=== PATIENT | female | born 1955 | race Caucasian/White ===

== ENCOUNTER → 2020-04-03 10:43 | Outpatient (BNVA) | payer OTHER, SELFPAY | PROVIDERS: Family Provider Internal Medicine; PCP Nurse Practitioner Family; Referring Provider Nurse Practitioner Family; Visit Provider Specialist | DX: M79.642 Pain in left hand (principal); S62.615A Displaced fracture of proximal phalanx of left ring finger, initial encounter for closed fracture; S62.647A Nondisplaced fracture of proximal phalanx of left little finger, initial encounter for closed fracture; X58.XXXA Exposure to other specified factors, initial encounter | CPT/HCPCS: 73130 ==

== ENCOUNTER 2020-04-03 11:46 | Outpatient (CLI) | payer OTHER, SELFPAY | END 2020-04-03 11:47 | disposition home or self-care (01) | LOC: SPT 11:47 | PROVIDERS: Family Provider Internal Medicine; PCP Nurse Practitioner Family; Visit Provider Specialist | DX: Z46.89 Encounter for fitting and adjustment of other specified devices (principal); M25.511 Pain in right shoulder | CPT/HCPCS: 97760; L3984 ==

== ENCOUNTER 2020-04-06 06:00 | Outpatient (RCR) | payer OTHER, SELFPAY | END 2020-04-09 23:59 | disposition home or self-care (01) | LOC: WPT 06:00 | PROVIDERS: Family Provider Internal Medicine; PCP Nurse Practitioner Family; Referring Provider Nurse Practitioner Family; Visit Provider Nurse Practitioner Family | DX: M25.511 Pain in right shoulder (principal) | CPT/HCPCS: 97110; 97163 ==

== ENCOUNTER 2020-04-10 06:00 | Outpatient (RCR) | payer OTHER, SELFPAY | END 2020-05-10 23:59 | disposition home or self-care (01) | LOC: WPT 06:00 | PROVIDERS: Family Provider Internal Medicine; PCP Nurse Practitioner Family; Referring Provider Nurse Practitioner Family; Visit Provider Nurse Practitioner Family | DX: M25.511 Pain in right shoulder (principal) | CPT/HCPCS: 97110; 97112 ==

== ENCOUNTER → 2020-04-24 13:14 | Outpatient (BNVA) | payer OTHER, SELFPAY | PROVIDERS: Family Provider Internal Medicine; PCP Nurse Practitioner Family; Visit Provider Specialist | DX: M79.642 Pain in left hand (principal); Z98.890 Other specified postprocedural states; S62.617D Displaced fracture of proximal phalanx of left little finger, subsequent encounter for fracture with routine healing; S62.615D Displaced fracture of proximal phalanx of left ring finger, subsequent encounter for fracture with routine healing; W19.XXXD Unspecified fall, subsequent encounter | CPT/HCPCS: 73130 ==

== ENCOUNTER → 2020-12-25 10:54 | Outpatient (BNVA) | payer MEDICARE, SELFPAY | PROVIDERS: Family Provider Internal Medicine; PCP Nurse Practitioner Family; Referring Provider Nurse Practitioner Family; Visit Provider Specialist | DX: S49.91XA Unspecified injury of right shoulder and upper arm, initial encounter (principal); S23.29XA Dislocation of other parts of thorax, initial encounter; W00.0XXA Fall on same level due to ice and snow, initial encounter | CPT/HCPCS: 71130; 73030 ==

== ENCOUNTER 2021-01-18 16:02 | Inpatient (IN) | payer MEDICARE, SELFPAY ==
--- NOTE | 2021-01-18 | XRR_ITS ---
PROCEDURE INFORMATION: Exam: XR Chest Exam date and time: 01/18/2021 5:36 PM Age: 65 years old Clinical indication: Injury or trauma; Fall; Blunt trauma (contusions or hematomas) TECHNIQUE: Imaging protocol: XR of the chest. Views: 1 view. COMPARISON: [place] [id number] 12/25/2020 2:25 PM FINDINGS: Lungs: Left mid lung calcified granuloma. Pleural spaces: Unremarkable. No pleural effusion. No pneumothorax. Heart/Mediastinum: Unremarkable. No cardiomegaly. Bones/joints: Unremarkable. XR/XR chest 1V portable [id number] IMPRESSION: Negative for acute abnormality
[2021-01-18 16:17] VITALS: BP 99/58; PULSE 84; RESP 18; TEMP 37.1; BMI 22.1
--- NOTE | 2021-01-18 16:48 | W.ED.FALL ---
HPI - Fall General: Chief Complaint: Fall Stated Complaint: FELL/L HIP PAIN Time Seen by Provider: 01/18/21 16:48 Source: family Limitations: altered mental status History of Present Illness: HPI Narrative: Ms. ramirez is a 65-year-old lady with significant past medical history of alcohol use who presents to the emergency department due to fall and generalized symptoms. She has had a number of weeks of worsening symptoms with increased confusion and generalized weakness. On Friday, 2 days prior to presentation, she was extra dizzy and ended up falling. Since that time she has had perhaps worsening of her confusion. She has not been able to walk. She complains of moderate intensity left hip and back pain. These symptoms are worse with exertion and movement but do not go away with rest. No infectious symptoms reported. No other specific changes in health, exacerbating, or alleviating factors identified. Some history is supplemented by patient's friends/family at bedside Review of Systems General: Reports: 10 or more systems reviewed and unremarkable except in HPI and below PFSH ED PFSH: Medical History (Updated 01/24/21 @ 16:55 by Isac Fernando MD) Anxiety disorder GERD (gastroesophageal reflux disease) Hyperlipidemia Hypertension Hyperthyroidism Major depressive disorder Refeeding syndrome Sarcoidosis diagnosis per available outside records, with patient stating onset in , details unknown, never put on specific treatment per report Type 2 diabetes mellitus Vulvar carcinoma Surgical History (Updated 01/23/21 @ 11:58 by Gilberto Farfan MD) History of carpal tunnel release History of gastric bypass Family History (Updated 01/18/21 @ 23:29 by Ana Tabor MD) Other Cancer Social History (Updated 01/18/21 @ 23:29 by Ana Tabor MD) Smoking and tobacco status: former smoker Alcohol intake: former Substance/Drug Use: never Number of children: 0 Physical Exam Narrative: EXAM NARRATIVE: GENERAL/CONSTITUTIONAL -ill-appearing. Delayed responses Eyes - PERRL, no conjunctival injection ENMT - Atraumatic external nose and ears. Moist mucous membranes NECK - supple. trachea midline CARDIOVASCULAR - regular rate and rhythm. Peripheral pulses 2+ and equal RESPIRATORY -coarse, cough ABDOMEN/GI -tenderness to palpation without evidence of peritonitis MSK - tender to palpation of the left hip. Tender to palpation of the back. Generalized other tenderness. SKIN - Warm, Dry NEURO - alert but confused. No focal neurologic deficits appreciated. Course ED course: - Patient was seen and evaluated by me at bedside - Patient placed on cardiac monitors, IV access obtained - Initial evaluation notable for confused, ill appearance - Labs notable for leukocytosis, macrocytic anemia. Metabolic panel notable for marked decreased bicarb and increased anion gap, creatinine is elevated likely well above baseline. Lactate significantly elevated. ABG with likely metabolic acidosis - Given patient's mental status CT imaging is warranted. imaging notable for no acute findings on head or neck CT. CT chest abdomen pelvis without acute finding to explain patient's symptoms. Patient does have left hip intertrochanteric fracture. - Discussed case with orthopedics, they will follow along - Upon serial reexamination after treatment the patient was minimally improved - Based on patient history, evaluation, labs, and imaging as interpreted the most likely cause of the patient's condition is largely unclear. She has rather profound metabolic derangement resulting in altered mental status of unclear etiology. She does have a hip fracture from her fall. - The results of ED evaluation were discussed with the patient including plan for admission due to requirement for level of care not available if discharged to prevent significant worsening/deterioration. -Hospitalist service contacted and agreed to admit the patient. - Patient was admitted without further deterioration or significant events. Vital Signs: Vital signs: Vital Signs Temperature 98 F 01/24/21 21:54 Pulse Rate 94 01/24/21 22:00 Respiratory Rate 18 01/24/21 21:54 Blood Pressure 131/88 01/24/21 21:54 Pulse Oximetry 96 01/24/21 21:54 MDM - Fall Medical Records: Attestation: I reviewed the patient's medical records. Lab Data: Attestation: I reviewed the patient's lab results. Labs: Lab Results 01/18/21 01/18/21 01/18/21 17:17 17:30 17:30 WBC 15.0 10^3/uL H 10 ^3/uL (4.0-10.0) RBC 2.35 10^6/uL L 10 ^6/uL (4.1-5.3) Hgb 8.0 g/dL L g/dL (11.5-15.3) Hct 27.1 % L % (37.0-47.0) MCV 115.3 fl H fl (81-99) MCH 34.0 pg pg (28.0-34.0) MCHC 29.5 g/dL L g/dL (30.0-36.0) RDW 14.5 % % (12.1-15.1) Plt Count 281 10^3/cmm 10^3 /cmm (130-400) MPV 10.4 fL fL (7.4-10.4) Neut % (Auto) 74.6 % % Lymph % (Auto) 16.2 % % Mcleod % (Auto) 8.4 % % Eos % (Auto) 0.0 % % Baso % (Auto) 0.1 % % Reticulocyte % (Au to) Neut # (Auto) 11.15 10^3/uL H 1 0^3/uL (1.8-7.7) Lymph # (Auto) 2.4 10^3/uL 10^3/ uL (0.8-4.8) Mcleod # (Auto) 1.3 10^3/uL H 10^ 3/uL (0.2-0.9) Eos # (Auto) 0.0 10^3/uL 10^3/ uL (0.0-0.8) Baso # (Auto) 0.0 10^3/uL 10^3/ uL (0.0-0.1) Nucleated RBC % (a uto) 0 % % Nucleated RBCs # 0.0 /100WBC /100W BC PT INR APTT Specimen Type Sample Site ABG pH ABG pCO2 ABG pO2 ABG HCO3 ABG Base Excess Jeferson Test Hematocrit O2 Delivery Device Digital Media Director ID Sodium 138 mmol/L mmol/L (136-145) Potassium 5.2 mmol/L H mmol /L (3.5-5.1) Chloride 92 mmol/L L mmol/ L (98-107) Carbon Dioxide 11 mmol/L L mmol/ L (22-29) Anion Gap 40.2 H (5-19) BUN 20 mg/dL mg/dL (8-23) Creatinine 2.2 mg/dL H mg/dL (0.5-0.9) GFR Calculation 22.4 mL/min L mL/ min (90-130) Glucose 149 mg/dL H mg/dL (65-115) POC Glucose 169 mg/dL H mg/dL (70-110) Serum Osmolality Calculated Osmolal ity 291 mOsm/kg mOsm/ kg (285-295) Lactic Acid Lactate Uric Acid Calcium 8.1 mg/dL L mg/dL (8.5-10.5) Phosphorus Magnesium Total Bilirubin 0.3 mg/dL mg/dL (0.15-1.2) AST 24 U/L U/L (0-32) ALT 22 U/L U/L (0-33) Alkaline Phosphata se 71 IU/L IU/L (35-105) Ammonia Lactate Dehydrogen ase Creatine Kinase Troponin T Baselin e Troponin T 120 Min pala Delta Troponin T NT-Pro-B Natriuret Pep Total Protein 5.3 g/dL L g/dL (6.6-8.7) Albumin 2.7 g/dL L g/dL (3.5-5.2) Globulin 2.6 g/dL g/dL (1.3-4.6) TSH 6.37 uIU/mL H uIU /mL (0.27-4.20) Free T4 Urine Color Urine Appearance Urine pH Ur Specific Gravit y Urine Protein Urine Glucose (UA) Urine Ketones Urine Blood Urine Nitrate Urine Bilirubin Urine Urobilinogen Ur Leukocyte ase Urine RBC Urine WBC Ur Squamous Epith Cells Ur Transition Epit h Cell Amorphous Sediment Urine Bacteria Hyaline Casts Salicylates Urine Opiates Scre en Acetaminophen Ur Barbiturates Sc reen Ur Phencyclidine S crn Ur Amphetamines Sc reen U Benzodiazepines Scrn Urine Cocaine Scre en U Marijuana (THC) Screen Ethyl Alcohol Serum Ketones 01/18/21 01/18/21 01/18/21 17:30 17:30 17:30 WBC RBC Hgb Hct MCV MCH MCHC RDW Plt Count MPV Neut % (Auto) Lymph % (Auto) Mcleod % (Auto) Eos % (Auto) Baso % (Auto) Reticulocyte % (Au to) Neut # (Auto) Lymph # (Auto) Mcleod # (Auto) Eos # (Auto) Baso # (Auto) Nucleated RBC % (a uto) Nucleated RBCs # PT INR APTT Specimen Type Sample Site ABG pH ABG pCO2 ABG pO2 ABG HCO3 ABG Base Excess Jeferson Test Hematocrit O2 Delivery Device Digital Media Director ID Sodium Potassium Chloride Carbon Dioxide Anion Gap BUN Creatinine GFR Calculation Glucose POC Glucose Serum Osmolality Calculated Osmolal ity Lactic Acid Lactate 9.4 mmol/L H* mmo l/L (0.5-2.2) Uric Acid Calcium Phosphorus Magnesium Total Bilirubin AST ALT Alkaline Phosphata se Ammonia Lactate Dehydrogen ase Creatine Kinase Troponin T Baselin e Troponin T 120 Min pala Delta Troponin T NT-Pro-B Natriuret Pep Total Protein Albumin Globulin TSH Free T4 4.49 ng/dL H ng/d L (0.82-1.77) Urine Color Urine Appearance Urine pH Ur Specific Gravit y Urine Protein Urine Glucose (UA) Urine Ketones Urine Blood Urine Nitrate Urine Bilirubin Urine Urobilinogen Ur Leukocyte ase Urine RBC Urine WBC Ur Squamous Epith Cells Ur Transition Epit h Cell Amorphous Sediment Urine Bacteria Hyaline Casts Salicylates < 0.3 mg/dL L mg/ dL (3-10) Urine Opiates Scre en Acetaminophen 11.8 ug/mL ug/mL (10-30) Ur Barbiturates Sc reen Ur Phencyclidine S crn Ur Amphetamines Sc reen U Benzodiazepines Scrn Urine Cocaine Scre en U Marijuana (THC) Screen Ethyl Alcohol < 10 mg/dL mg/dL (0-10) Serum Ketones 01/18/21 01/18/21 01/18/21 17:30 17:30 17:30 WBC RBC Hgb Hct MCV MCH MCHC RDW Plt Count MPV Neut % (Auto) Lymph % (Auto) Mcleod % (Auto) Eos % (Auto) Baso % (Auto) Reticulocyte % (Au to) 3.3 % H % (0.5-2.0) Neut # (Auto) Lymph # (Auto) Mcleod # (Auto) Eos # (Auto) Baso # (Auto) Nucleated RBC % (a uto) Nucleated RBCs # PT 15.90 SECONDS H S ECONDS (12.1-14.9) INR 1.23 H (0.8-1.2) APTT 37.4 SECONDS H SE CONDS (23.9-36.7) Specimen Type Sample Site ABG pH ABG pCO2 ABG pO2 ABG HCO3 ABG Base Excess Jfeerson Test Hematocrit O2 Delivery Device Digital Media Director ID Sodium Potassium Chloride Carbon Dioxide Anion Gap BUN Creatinine GFR Calculation Glucose POC Glucose Serum Osmolality Calculated Osmolal ity Lactic Acid Lactate Uric Acid Calcium Phosphorus Magnesium Total Bilirubin AST ALT Alkaline Phosphata se Ammonia Lactate Dehydrogen ase Creatine Kinase 186 U/L U/L (26-192) Troponin T Baselin e Troponin T 120 Min pala Delta Troponin T NT-Pro-B Natriuret Pep Total Protein Albumin Globulin TSH Free T4 Urine Color Urine Appearance Urine pH Ur Specific Gravit y Urine Protein Urine Glucose (UA) Urine Ketones Urine Blood Urine Nitrate Urine Bilirubin Urine Urobilinogen Ur Leukocyte ase Urine RBC Urine WBC Ur Squamous Epith Cells Ur Transition Epit h Cell Amorphous Sediment Urine Bacteria Hyaline Casts Salicylates Urine Opiates Scre en Acetaminophen Ur Barbiturates Sc reen Ur Phencyclidine S crn Ur Amphetamines Sc reen U Benzodiazepines Scrn Urine Cocaine Scre en U Marijuana (THC) Screen Ethyl Alcohol Serum Ketones 01/18/21 01/18/21 01/18/21 17:30 19:34 19:48 WBC RBC Hgb Hct MCV MCH MCHC RDW Plt Count MPV Neut % (Auto) Lymph % (Auto) Mcleod % (Auto) Eos % (Auto) Baso % (Auto) Reticulocyte % (Au to) Neut # (Auto) Lymph # (Auto) Mcleod # (Auto) Eos # (Auto) Baso # (Auto) Nucleated RBC % (a uto) Nucleated RBCs # PT INR APTT Specimen Type Sample Site ABG pH ABG pCO2 ABG pO2 ABG HCO3 ABG Base Excess Jeferson Test Hematocrit O2 Delivery Device Digital Media Director ID Sodium Potassium Chloride Carbon Dioxide Anion Gap BUN Creatinine GFR Calculation Glucose POC Glucose Serum Osmolality Calculated Osmolal ity Lactic Acid Lactate Uric Acid 8.6 mg/dL H mg/dL (2.4-5.7) Calcium Phosphorus Magnesium Total Bilirubin AST ALT Alkaline Phosphata se Ammonia Lactate Dehydrogen ase 222 U/L H U/L (135-214) Creatine Kinase Troponin T Baselin e Troponin T 120 Min pal[place] Troponin T NT-Pro-B Natriuret Pep 296 pg/mL H pg/mL (0-125) Total Protein Albumin Globulin TSH Free T4 Urine Color Yellow (Yellow) Urine Appearance Sl hazy (CLEAR) Urine pH 5 (5-7) Ur Specific Gravit y 1.030 (1.005-1.030) Urine Protein Trace (Negative) Urine Glucose (UA) Norm (Normal) Urine Ketones Negative (Negative) Urine Blood Neg (Negative) Urine Nitrate Negative (Negative) Urine Bilirubin 1+ H (Negative) Urine Urobilinogen Norm mg/dL mg/dL (Negative) Ur Leukocyte ase 1+ H (Negative) Urine RBC 0-4 /hpf H /hpf (0-2) Urine WBC 25-40 /hpf H /hpf (0-5) Ur Squamous Epith Cells 5-10 /hpf H /hpf (0-5) Ur Transition Epit h Cell 0-4 /hpf /hpf Amorphous Sediment Not Reportable Urine Bacteria 2+ /hpf H /hpf (NONE) Hyaline Casts 0-4 /lpf H /lpf Salicylates Urine Opiates Scre en Negative ng/mL ng /mL (Negative) Acetaminophen Ur Barbiturates Sc reen Negative ng/mL ng /mL (Negative) Ur Phencyclidine S crn Negative ng/mL ng /mL (Negative) Ur Amphetamines Sc reen Negative ng/mL ng /mL (Negative) U Benzodiazepines Scrn Negative ng/mL ng /mL (Negative) Urine Cocaine Scre en Negative ng/mL ng /mL (Negative) U Marijuana (THC) Screen Negative ng/mL ng /mL (Negative) Ethyl Alcohol Serum Ketones 01/18/21 01/18/21 01/18/21 20:03 20:53 20:53 WBC RBC Hgb Hct MCV MCH MCHC RDW Plt Count MPV Neut % (Auto) Lymph % (Auto) Mcleod % (Auto) Eos % (Auto) Baso % (Auto) Reticulocyte % (Au to) Neut # (Auto) Lymph # (Auto) Mcleod # (Auto) Eos # (Auto) Baso # (Auto) Nucleated RBC % (a uto) Nucleated RBCs # PT INR APTT Specimen Type Arterial Sample Site Brachial, left ABG pH 7.19 L (7.35-7.45) ABG pCO2 16.9 mmHg L* mmHg (35-45) ABG pO2 127.0 mmHg H mmHg (80.0-100.0) ABG HCO3 6.4 mmol/L L mmol /L (22-26) ABG Base Excess -19.9 mmol/L L mm ol/L (-2.0-2.0) Jeferson Test Pos Hematocrit 27.2 % L % (37-47) O2 Delivery Device Room air Digital Media Director ID Buttr Sodium Potassium Chloride Carbon Dioxide Anion Gap BUN Creatinine GFR Calculation Glucose POC Glucose Serum Osmolality 306 Calculated Osmolal ity Lactic Acid Lactate Uric Acid Calcium Phosphorus Magnesium Total Bilirubin AST ALT Alkaline Phosphata se Ammonia 20 umol/L umol/L (11-51) Lactate Dehydrogen ase Creatine Kinase Troponin T Baselin e Troponin T 120 Min pal[place] Troponin T NT-Pro-B Natriuret Pep Total Protein Albumin Globulin TSH Free T4 Urine Color Urine Appearance Urine pH Ur Specific Gravit y Urine Protein Urine Glucose (UA) Urine Ketones Urine Blood Urine Nitrate Urine Bilirubin Urine Urobilinogen Ur Leukocyte ase Urine RBC Urine WBC Ur Squamous Epith Cells Ur Transition Epit h Cell Amorphous Sediment Urine Bacteria Hyaline Casts Salicylates Urine Opiates Scre en Acetaminophen Ur Barbiturates Sc reen Ur Phencyclidine S crn Ur Amphetamines Sc reen U Benzodiazepines Scrn Urine Cocaine Scre en U Marijuana (THC) Screen Ethyl Alcohol Serum Ketones 01/18/21 01/18/21 01/18/21 20:53 20:53 20:53 WBC RBC Hgb Hct MCV MCH MCHC RDW Plt Count MPV Neut % (Auto) Lymph % (Auto) Mcleod % (Auto) Eos % (Auto) Baso % (Auto) Reticulocyte % (Au to) Neut # (Auto) Lymph # (Auto) Mcleod # (Auto) Eos # (Auto) Baso # (Auto) Nucleated RBC % (a uto) Nucleated RBCs # PT INR APTT Specimen Type Sample Site ABG pH ABG pCO2 ABG pO2 ABG HCO3 ABG Base Excess Jeferson Test Hematocrit O2 Delivery Device Digital Media Director ID Sodium Potassium Chloride Carbon Dioxide Anion Gap BUN Creatinine GFR Calculation Glucose POC Glucose Serum Osmolality Calculated Osmolal ity Lactic Acid Lactate Uric Acid Calcium Phosphorus 8.5 mg/dL H* mg/d L (2.5-4.5) Magnesium 1.8 mg/dL mg/dL (1.7-2.3) Total Bilirubin AST ALT Alkaline Phosphata se Ammonia Lactate Dehydrogen ase Creatine Kinase Troponin T Baselin e 6 ng/L ng/L (0-10) Troponin T 120 Min pal[place] Delta Troponin T NT-Pro-B Natriuret Pep Total Protein Albumin Globulin TSH Free T4 Urine Color Urine Appearance Urine pH Ur Specific Gravit y Urine Protein Urine Glucose (UA) Urine Ketones Urine Blood Urine Nitrate Urine Bilirubin Urine Urobilinogen Ur Leukocyte ase Urine RBC Urine WBC Ur Squamous Epith Cells Ur Transition Epit h Cell Amorphous Sediment Urine Bacteria Hyaline Casts Salicylates Urine Opiates Scre en Acetaminophen Ur Barbiturates Sc reen Ur Phencyclidine S crn Ur Amphetamines Sc reen U Benzodiazepines Scrn Urine Cocaine Scre en U Marijuana (THC) Screen Ethyl Alcohol Serum Ketones Positive H (Negative) 01/18/21 01/19/21 22:30 00:46 WBC RBC Hgb Hct MCV MCH MCHC RDW Plt Count MPV Neut % (Auto) Lymph % (Auto) Mcleod % (Auto) Eos % (Auto) Baso % (Auto) Reticulocyte % (Au to) Neut # (Auto) Lymph # (Auto) Mcleod # (Auto) Eos # (Auto) Baso # (Auto) Nucleated RBC % (a uto) Nucleated RBCs # PT INR APTT Specimen Type Sample Site ABG pH ABG pCO2 ABG pO2 ABG HCO3 ABG Base Excess Jeferson Test Hematocrit O2 Delivery Device Digital Media Director ID Sodium Potassium Chloride Carbon Dioxide Anion Gap BUN Creatinine GFR Calculation Glucose POC Glucose Serum Osmolality Calculated Osmolal ity Lactic Acid 7.1 mmol/L H* mmo l/L (0.5-2.2) Lactate Uric Acid Calcium Phosphorus Magnesium Total Bilirubin AST ALT Alkaline Phosphata se Ammonia Lactate Dehydrogen ase Creatine Kinase Troponin T Baselin e Troponin T 120 Min pala 6.00 ng/L ng/L (0-10) Delta Troponin T 0 ABS# ABS# (0-10) NT-Pro-B Natriuret Pep Total Protein Albumin Globulin TSH Free T4 Urine Color Urine Appearance Urine pH Ur Specific Gravit y Urine Protein Urine Glucose (UA) Urine Ketones Urine Blood Urine Nitrate Urine Bilirubin Urine Urobilinogen Ur Leukocyte ase Urine RBC Urine WBC Ur Squamous Epith Cells Ur Transition Epit h Cell Amorphous Sediment Urine Bacteria Hyaline Casts Salicylates Urine Opiates Scre en Acetaminophen Ur Barbiturates Sc reen Ur Phencyclidine S crn Ur Amphetamines Sc reen U Benzodiazepines Scrn Urine Cocaine Scre en U Marijuana (THC) Screen Ethyl Alcohol Serum Ketones EKG Data^: EKG 1: Attestation: I personally reviewed and interpreted this EKG as follows: EKG interpretation date: 01/18/21 EKG interpretation time: 21:51 Interpretation: Twelve-lead EKG shows a regular rhythm at a rate of 101. SD interval 145, QRS duration 92, QTc 430. Left axis deviation. Interpretation: Sinus rhythm. Critical Care Time Critical Care Time: Critical Care Time: Yes Total Critical Care Time: 45 Attestation: Due to a high probability of clinically significant, possibly life threatening deterioration, the patient required my highest level of attention and preparedness to intervene emergently and I personally spent this critical care time directly and personally managing the patient. This critical care time included obtaining a history; examining the patient; pulse oximetry; ordering and review of laboratory and imaging studies; arranging urgent treatment with development of a management plan; evaluation of patient's response to treatment; frequent reassessment; and, discussions with other providers as applicable. It was exclusive of separately billable procedures. Discharge Plan Discharge Admit Provider: Ana Tabor Condition: Stable Coding Level of Care Code ED Dialer for Paola De Los Santos
--- NOTE | 2021-01-18 16:54 | CTR_ITS ---
PROCEDURE INFORMATION: Exam: CT Head Without Contrast Exam date and time: 01/18/2021 4:54 PM Age: 65 years old Clinical indication: Altered mental status/memory loss; Patient HX: PT has AMS after fall 2 days ago; Additional info: AMS, fall TECHNIQUE: Imaging protocol: Computed tomography of the head without contrast. Radiation optimization: All CT scans at this facility use at least one of these dose optimization techniques: automated exposure control; mA and/or kV adjustment per patient size (includes targeted exams where dose is matched to clinical indication); or iterative reconstruction. COMPARISON: No relevant prior studies available. RADIATION DOSE METRICS: Total DLP (mGy-cm): 790.67 FINDINGS: Brain: Mild diffuse white matter disease likely reflecting chronic microvascular ischemic changes. Cerebral ventricles: No ventriculomegaly. Paranasal sinuses: Visualized sinuses are unremarkable. No fluid levels. Mastoid air cells: Visualized mastoid air cells are well aerated. Bones/joints: Unremarkable. No acute fracture. Soft tissues: Unremarkable. CT/CT head wo con* [id number] IMPRESSION: 1. Negative for intracranial hemorrhage or mass effect. 2. Mild diffuse white matter disease likely reflecting chronic microvascular ischemic changes.
--- NOTE | 2021-01-18 16:54 | CTR_ITS ---
PROCEDURE INFORMATION: Exam: CT Chest Without Contrast; Diagnostic Exam date and time: 01/18/2021 4:54 PM Age: 65 years old Clinical indication: Injury or trauma; Fall; Generalized; Blunt trauma (contusions or hematomas); Prior surgery; Additional info: AMS, fall, abdominal pain, inability to eat TECHNIQUE: Imaging protocol: Diagnostic computed tomography of the chest without contrast. Radiation optimization: All CT scans at this facility use at least one of these dose optimization techniques: automated exposure control; mA and/or kV adjustment per patient size (includes targeted exams where dose is matched to clinical indication); or iterative reconstruction. COMPARISON: CR XR chest 1V portable [id number] 01/18/2021 5:08 PM RADIATION DOSE METRICS: Total DLP (mGy-cm): 1198.72 FINDINGS: Lungs: Left lower lobe atelectasis. Pleural spaces: Unremarkable. No pneumothorax. No pleural effusion. Heart: Coronary artery atherosclerotic calcifications. Aorta: Unremarkable. No aortic aneurysm. Lymph nodes: Unremarkable. No enlarged lymph nodes. Bones/joints: Unremarkable. No acute fracture. Soft tissues: Unremarkable. PROCEDURE INFORMATION: Exam: CT Abdomen And Pelvis Without Contrast Exam date and time: 01/18/2021 4:54 PM Age: 65 years old Clinical indication: Injury or trauma; Fall; Generalized; Blunt trauma (contusions or hematomas); Prior surgery; Additional info: AMS, fall, abdominal pain, inability to eat TECHNIQUE: Imaging protocol: Computed tomography of the abdomen and pelvis without contrast. Radiation optimization: All CT scans at this facility use at least one of these dose optimization techniques: automated exposure control; mA and/or kV adjustment per patient size (includes targeted exams where dose is matched to clinical indication); or iterative reconstruction. COMPARISON: CR XR chest 1V portable [id number] 01/18/2021 5:08 PM RADIATION DOSE METRICS: Total DLP (mGy-cm): 1198.72 FINDINGS: Liver: Normal. No mass. Gallbladder and bile ducts: Cholecystectomy. Pancreas: Normal. No ductal dilation. Spleen: Normal. No splenomegaly. Adrenal glands: Normal. No mass. Kidneys and ureters: Left kidney cyst, negative for follow-up advised. Stomach and bowel: Gastric surgical sutures. Appendix: No evidence of appendicitis. Intraperitoneal space: Unremarkable. No free air. No significant fluid collection. Vasculature: Unremarkable. No abdominal aortic aneurysm. Lymph nodes: Unremarkable. No enlarged lymph nodes. Urinary bladder: Unremarkable as visualized. Reproductive: Unremarkable as visualized. Bones/joints: Left hip intertrochanteric somewhat impacted displaced fracture. Soft tissues: Unremarkable. CT/CT chest abd pel wo con IMPRESSION: 1. Negative for traumatic injury to the chest. 2. Coronary artery atherosclerotic calcifications. 3. Left lower lobe atelectasis. IMPRESSION: 1. Negative for acute traumatic injury to the abdominal or pelvic organs 2. Cholecystectomy. 3. Gastric surgical sutures. 4. Left hip intertrochanteric somewhat impacted displaced fracture. 5. Left kidney cyst, negative for follow-up advised.
--- NOTE | 2021-01-18 16:54 | XRR_ITS ---
PROCEDURE INFORMATION: Exam: XR Left Femur Exam date and time: 01/18/2021 4:54 PM Age: 65 years old Clinical indication: Injury or trauma; Fall; Blunt trauma; Thigh or upper leg; Left; Additional info: Fall, pain TECHNIQUE: Imaging protocol: XR Left femur. Views: 2 views. COMPARISON: No relevant prior studies available. FINDINGS: Bones/joints: Comminuted intertrochanteric fracture with impaction and displacement of the fracture fragments. Soft tissues: Unremarkable. XR/XR femur LT min 2V* [id number] IMPRESSION: Comminuted intertrochanteric fracture with impaction and displacement of the fracture fragments.
--- NOTE | 2021-01-18 16:54 | CTR_ITS ---
PROCEDURE INFORMATION: Exam: CT Cervical Spine Without Contrast Exam date and time: 01/18/2021 4:54 PM Age: 65 years old Clinical indication: Injury or trauma; Fall; Blunt trauma; Additional info: AMS, fall TECHNIQUE: Imaging protocol: Computed tomography images of the cervical spine without contrast. Radiation optimization: All CT scans at this facility use at least one of these dose optimization techniques: automated exposure control; mA and/or kV adjustment per patient size (includes targeted exams where dose is matched to clinical indication); or iterative reconstruction. COMPARISON: CT head wo con* [id number] 01/18/2021 6:36 PM RADIATION DOSE METRICS: Total DLP (mGy-cm): 384.37 FINDINGS: Vertebrae: No acute fracture. Normal alignment. C2-C3: No significant disc protrusion. No severe spinal canal stenosis. No significant neural foraminal narrowing. C3-C4: No significant disc protrusion. No severe spinal canal stenosis. No significant neural foraminal narrowing. C4-C5: No significant disc protrusion. No severe spinal canal stenosis. No significant neural foraminal narrowing. C5-C6: No significant disc protrusion. No severe spinal canal stenosis. No significant neural foraminal narrowing. C6-C7: No significant disc protrusion. No severe spinal canal stenosis. No significant neural foraminal narrowing. C7-T1: No significant disc protrusion. No severe spinal canal stenosis. No significant neural foraminal narrowing. Soft tissues: Unremarkable. Lungs: Lung apices are normal. CT/CT cervical spin wo con* [id number] IMPRESSION: No acute findings.
[2021-01-18 17:20] LABS: Glucose Point of Care 169 mg/dL (70-110)
[2021-01-18 17:33] VITALS: BP 130/62; PULSE 78; RESP 17; TEMP 36.6; O2SAT 97
[2021-01-18 17:45] LABS: Basophils % 0.1 %; Hematocrit 27.1 % (37.0-47.0); Lymphocytes # 2.4 10^3/uL (0.8-4.8); Lymphocytes % 16.2 %; Mean Corpuscular HGB Conc 29.5 g/dL (30.0-36.0); Mean Corpuscular Volume 115.3 fl (81-99); Mean Platelet Volume 10.4 fL (7.4-10.4); Monocytes # 1.3 10^3/uL (0.2-0.9); Monocytes % 8.4 %; Neutrophils # 11.15 10^3/uL (1.8-7.7); Neutrophils % 74.6 %; Nucleated Red Blood Cells % 0 %; Platelet Count 281 10^3/cmm (130-400); Red Blood Count 2.35 10^6/uL (4.1-5.3); Red Cell Distribution Width 14.5 % (12.1-15.1)
[2021-01-18 18:15] LABS: Alanine Aminotransferase 22 U/L (0-33); Albumin Level 2.7 g/dL (3.5-5.2); Alkaline Phosphatase 71 IU/L (35-105); Anion Gap 40.2 (5-19); Aspartate Amino Transferase 24 U/L (0-32); Blood Urea Nitrogen 20 mg/dL (8-23); Calcium 8.1 mg/dL (8.5-10.5); Carbon Dioxide 11 mmol/L (22-29); Chloride 92 mmol/L (98-107); Globulin 2.6 g/dL (1.3-4.6); Glomerular Filtration Rate 22.4 mL/min (90-130); Glucose 149 mg/dL (65-115); Osmolality Calculated 291 mOsm/kg (285-295); Potassium 5.2 mmol/L (3.5-5.1); Sodium 138 mmol/L (136-145); Thyroid Stimulating Hormone 6.37 uIU/mL (0.27-4.20); Total Bilirubin 0.3 mg/dL (0.15-1.2); Total Protein 5.3 g/dL (6.6-8.7)
--- NOTE | 2021-01-18 19:04 | XRR_ITS ---
PROCEDURE INFORMATION: Exam: XR Pelvis Exam date and time: 01/18/2021 7:04 PM Age: 65 years old Clinical indication: Injury or trauma; Fall; Blunt trauma (contusions or hematomas); Left; Hip; Additional info: Hip fracture, requested by ortho service TECHNIQUE: Imaging protocol: XR pelvis. Views: 1 or 2 view. COMPARISON: CT chest abd pel wo con 01/18/2021 6:42 PM FINDINGS: Bones/joints: Intertrochanteric comminuted somewhat impacted displaced fracture. Lumbar spine degenerative changes. Soft tissues: Unremarkable. XR/XR pelvis 1-2V* [id number] IMPRESSION: Intertrochanteric comminuted somewhat impacted displaced fracture.
[2021-01-18 19:48] LABS: Acetaminophen 11.8 ug/mL (10-30)
[2021-01-18 19:49] LABS: Alcohol Level < 10 mg/dL (0-10); Salicylate < 0.3 mg/dL (3-10)
[2021-01-18 19:58] LABS: Blood Urine Neg (Negative); Glucose Urine UA Norm (Normal); Ketones Urine Negative (Negative); Nitrate Urine Negative (Negative); Protein Urine Trace (Negative); Urine Appearance SL Hazy (CLEAR); Urine Color Yellow (Yellow); pH Urine 5 (5-7)
[2021-01-18 19:59] LABS: Lactate (Lactic Acid level) 9.4 mmol/L (0.5-2.2)
[2021-01-18 19:59] LABS: Add Urine Microscopic? YES; Bilirubin Urine 1+ (Negative); Leukocyte Esterase Urine 1+ (Negative); Urobilinogen Urine Norm (Negative)
[2021-01-18 20:04] LABS: RBC Urine 0-4 /hpf (0-2)
[2021-01-18 20:05] LABS: WBC Urine 25-40 /hpf (0-5)
[2021-01-18 20:06] LABS: Add Urine Culture? Yes; Bacteria Urine 2+ /hpf; Hyaline Casts Urine 0-4 /lpf; Transitional Epi Cells Urine 0-4 /hpf
[2021-01-18 20:15] LABS: ABG PH Result 7.19 (7.35-7.45); Arterial Blood Gas Hematocrit 27.2 % (37-47); Base Excess ABG -19.9 mmol/L (-2.0-2.0); Blood Gas Allen Test Pos; Blood Gas Sample Site Brachial, left; Blood Gas Sample Type Arterial; HCO3 ABG 6.4 mmol/L (22-26); Oxygen Device ROOM AIR
[2021-01-18 20:18] LABS: ABG PCO2 16.9 mmHg (35-45)
[2021-01-18 20:27] LABS: Amphetamines Screen Urine Negative (Negative); Barbiturates Screen Urine Negative (Negative); Benzodiazepines Screen Urine Negative (Negative); Cocaine Screen Urine Negative (Negative); Opiate Screen Urine Negative (Negative); PCP Screen Urine Negative (Negative); THC Screen Urine Negative (Negative)
[2021-01-18 20:38] LABS: Creatine Phosphokinase 186 U/L (26-192)
--- NOTE | 2021-01-18 20:45 | ECG_ITS ---
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 Measurements Intervals [place] Rate: 101 P: 67 DC: 145 QRS: -14 QRSD: 92 T: 79 QT: 372 QTc: 483 Interpretive Statements SINUS TACHYCARDIA No previous ECG available for comparison Electronically Signed On 01-20-2021 7:38:44 MAGISTRATE by Jc Poe M.D. [id number]
[2021-01-18 20:59] LABS: Free T4 Free Thyroxine 4.49 ng/dL (0.82-1.77)
[2021-01-18] MEDS: sodium chloride 0.9% 1,000 ML 999 ML IV (21:09)
[2021-01-18] MEDS: folic acid 1 MG, multivitamin inj 10 ML, thiamine 100 MG in sodium chloride 0.9% 1,000 ML 252.8 MG IV (21:09)
[2021-01-18 21:31] LABS: Troponin(5th) Baseline 6 ng/L (0-10)
[2021-01-18 21:32] LABS: Reticulocyte % 3.3 % (0.5-2.0)
[2021-01-18 21:33] LABS: INR 1.23 (0.8-1.2); Partial Thromboplastin Time 37.4 SECONDS (23.9-36.7)
[2021-01-18 21:34] LABS: Ammonia 20 umol/L (11-51)
[2021-01-18 21:44] LABS: Ketone (Acetest) Serum Positive (Negative)
[2021-01-18 22:20] LABS: Lactate Dehydrogenase 222 U/L (135-214); NT Pro B Type Natriuretic Pept 296 pg/mL (0-125); Uric Acid 8.6 mg/dL (2.4-5.7)
[2021-01-18 22:30] LABS: Magnesium 1.8 mg/dL (1.7-2.3)
[2021-01-18 22:31] LABS: Phosphorus 8.5 mg/dL (2.5-4.5)
--- NOTE | 2021-01-18 22:43 | PM.HP ---
Providers/Chief Complaint Admitting Physician: Ana Tabor MD Primary Care Provider: Geeta Anders HAND EXPANSION ENVELOPE MAKER-C Chief Complaint: FELL/L HIP PAIN History of Present Illness Almita Mckinley is a 65 year old female who presented to the emergency room with chief complaint of not being able to walk since a fall a couple of days ago. Due to current clinical condition, it is hard to get specific information. There were 2 people with her on arrival, at least one of them being her brother. They indicated that she has been confused and weaker for a couple of weeks. They were not sure what was wrong with her there are any changes medically. I do have records from an office visit here in orthopedics on December 25. That visit was to establish care for a right rotator cuff tear. The rotator cuff tear was identified and an MRI performed at [facility] on November 24. She had a steroid injection intra-articularly at the right shoulder. X-rays were also obtained and recommendation was for an MRI of the right sternoclavicular joint. A follow-up appointment with orthopedics is scheduled for March 2021. From the note it does appear patient was able to provide information at that date. I was also able to obtain some outpatient records that had been scanned into the EMR at the time of referral to orthopedics. From these notes patient has been having dizziness diarrhea and difficulty walking since at least mid November. Notes indicate she was started on mirtazapine and given nitrofurantoin for a urinary tract infection. She had continued to complain of a lot of dizziness and had borderline blood pressures. She described not wanting to eat anymore and in talking with her today she says she is not sure how much she has been eating or drinking. There were indications that she drank alcohol but was able to stop with the help of naltrexone, suggesting dependence. She complained of memory issues progressively worsening and some grieving over the loss of her mother. She says that she lives with her brothers. The note indicates that she has not been using her oxygen daily but patient herself cannot tell me why she was on oxygen and actually denies ever being prescribed to this. As indicated she is contradictory with some information and I am not sure that I can rely on anything that she is sharing with me. She is unsure what happened with the fall. She cannot tell me why it has taken a couple of days for her to come in. She indicates that she may have been taking her medications but may not have been. She cannot discern 1 versus the other definitively. She denied any recent alcohol consumption or history of drug use. Upon specific questioning she denied ingesting any antifreeze or similar substances. She denied any suicidal or homicidal thoughts. She does have a history of anxiety and depression. She denies chest pain, difficulty breathing, pain anywhere except for her left hip. The hip was found to have an impacted left intertrochanteric fracture. Multiple laboratory abnormalities were identified as described below. These include an anion gap of 40, lactic acid of 9, among others. Vital signs have however been stable thus far. No fever noted. She is being admitted to the ICU for further evaluation and care. She has received IV fluids and a banana bag. Review of Systems General: Reports: ROS unobtainable due to medical condition and ROS unobtainable due to mental status Medications/Allergies Home Medications Medication Instructions Recorded Confirmed Last Taken Type biotin 10,000 mcg capsule 10,000 mcg PO DAILY 04/03/20 01/18/21 01/17/21 History calcium citrate 315 mg-vitamin D3 1 tab PO DAILY 04/03/20 01/18/21 01/17/21 History 5 mcg (200 unit) tablet clonazepam 1 mg tablet 1 mg PO BID PRN 04/03/20 01/18/21 01/17/21 History coenzyme Q10 10 mg capsule 10 mg PO TID 04/03/20 01/18/21 01/17/21 History fluticasone propionate 50 1 spray INTRANASAL DAILY 04/03/20 01/18/21 Unknown History mcg/actuation nasal spray,suspension furosemide 20 mg tablet 20 mg PO DAILY 04/03/20 01/18/21 01/17/21 History gabapentin 600 mg tablet 600 mg PO TID 04/03/20 01/18/21 01/17/21 History melatonin 10 mg capsule 10 mg PO BEDTIME 04/03/20 01/18/21 01/17/21 History metformin 500 mg tablet 1,000 mg PO BID 04/03/20 01/18/21 01/17/21 History multivitamin,gl-vbzl-ooilurmm 1 tab PO DAILY 04/03/20 01/18/21 01/17/21 History pantoprazole 40 mg tablet,delayed 40 mg PO DAILY 02/01/18/21 01/17/21 History release potassium chloride 20 mEq oral 20 meq PO DAILY 04/03/20 01/18/21 01/17/21 History packet simvastatin 40 mg tablet 40 mg PO DAILY 04/03/20 01/18/21 01/17/21 History venlafaxine 150 mg 150 mg PO DAILY 04/03/20 01/18/21 01/17/21 History capsule,extended release 24 hr albuterol sulfate 2 puff INHALATION QID PRN 01/18/21 01/18/21 Unknown History lisinopril 10 mg PO DAILY 01/18/21 01/18/21 01/17/21 History meclizine 25 mg PO TID PRN 01/18/21 01/18/21 Unknown History mirtazapine 15 mg PO BEDTIME 01/18/21 01/18/21 01/17/21 History quetiapine [Seroquel] 25 mg PO BEDTIME 01/18/21 01/18/21 01/17/21 History semaglutide [Ozempic] 0.25 mg SUBCUT Q7D 01/18/21 01/18/21 Unknown History venlafaxine 75 mg PO DAILY 01/18/21 01/18/21 01/17/21 History Allergies Allergy/AdvReac Type Severity Reaction Status Date / Time No Known Allergies Allergy Verified 12/25/20 11:48 PFSH Acute PFSH: Medical History (Updated 01/19/21 @ 00:29 by Ana Tabor MD) Anxiety disorder GERD (gastroesophageal reflux disease) Hyperlipidemia Hypertension Hyperthyroidism Major depressive disorder Sarcoidosis diagnosis per available outside records, with patient stating onset in , details unknown, never put on specific treatment per report Type 2 diabetes mellitus Vulvar carcinoma Surgical History (Updated 01/18/21 @ 22:10 by Ana Tabor MD) History of carpal tunnel release History of gastric bypass Family History (Updated 01/18/21 @ 23:29 by Ana Tabor MD) Other Cancer Social History (Updated 01/18/21 @ 23:29 by Ana Tabor MD) Smoking and tobacco status: former smoker Alcohol intake: former Substance/Drug Use: never Number of children: 0 Vitals/I&O/Wt Last Vital Signs Temp 97.9 F 01/18/21 17:33 Pulse 78 01/18/21 17:33 Resp 17 01/18/21 17:33 BP 130/62 01/18/21 17:33 Pulse Ox 97 01/18/21 17:33 Weight last 48 hrs Weight 56.699 kg Physical Exam Narrative: EXAM NARRATIVE: Constitutional: Ill-appearing, awake and does attempt to answer questions but is slow to answer and inconsistent in responses, talks softly, looks like she has lost a significant amount of weight with loose skin notable HEENT: Normocephalic, atraumatic, pupils are large and sluggishly reactive, sclera injected, nasopharynx is clear but dry, oropharynx with dry mucous membranes Neck: Supple, prominence of the sternoclavicular joint on the right is not tender Respiratory: Clear to auscultation bilaterally though shallow respirations, slightly tachypneic, no rales rhonchi or wheezes Cardiovascular: Regular rate and rhythm, no murmurs gallops or rubs, pulses are 1+x4 Abdomen: Soft, nontender, decreased bowel sounds : Voss catheter in place, bruising noted on the left groin extending to the right left lower extremity, minimal urine noted in Voss tubing is clear light yellow Extremities: Left lower extremity is externally rotated, slightly bent at the hip and knee and shortened. Swelling and bruising is noted at the top of the thigh with swelling more notable laterally and bruising more notable medially. Both lower extremities are cool to touch. Skin: Patient with cyanosis of fingers and toes and some mottling primarily up the left leg although capillary refill is 2 seconds at the toes, mottling not noted to the right lower extremity. Bruising in the left groin noted with ecchymoses scattered on upper extremities. Skin is dry and cool all over. Decreased turgor. Neuro: Slow answering questions, oriented to person, knows she is in the hospital, knows her hip is broken but not able to provide other details. Moves all extremities although limited in the left lower extremity due to fracture and pain. Requires frequent education to keep her arm straight where the IV is. No abnormal movements. No nystagmus, extraocular movements are intact. Toes are equivocal. Psych: Flat affect Urinary Catheter Management^: Voss: Cath Placed During This Visit: yes Urinary Catheter Date of Insertion: 01/18/21 Urinary Catheter Time of Insertion: 19:15 Data : 01/18/21 17:30 01/18/21 17:30 Other Labs: Laboratory Results WBC 15.0 10^3/uL (4.0-10.0) H 01/18/21 17:30 RBC 2.35 10^6/uL (4.1-5.3) L 01/18/21 17:30 Hgb 8.0 g/dL (11.5-15.3) L 01/18/21 17:30 Hct 27.1 % (37.0-47.0) L 01/18/21 17:30 MCV 115.3 fl (81-99) H 01/18/21 17:30 MCH 34.0 pg (28.0-34.0) 01/18/21 17:30 MCHC 29.5 g/dL (30.0-36.0) L 01/18/21 17:30 RDW 14.5 % (12.1-15.1) 01/18/21 17:30 Plt Count 281 10^3/cmm (130-400) 01/18/21 17:30 MPV 10.4 fL (7.4-10.4) 01/18/21 17:30 Neut % (Auto) 74.6 % 01/18/21 17:30 Lymph % (Auto) 16.2 % 01/18/21 17:30 [place] % (Auto) 8.4 % 01/18/21 17:30 Eos % (Auto) 0.0 % 01/18/21 17:30 Baso % (Auto) 0.1 % 01/18/21 17:30 Reticulocyte % (Auto) 3.3 % (0.5-2.0) H 01/18/21 17:30 Neut # (Auto) 11.15 10^3/uL (1.8-7.7) H 01/18/21 17:30 Lymph # (Auto) 2.4 10^3/uL (0.8-4.8) 01/18/21 17:30 [place] # (Auto) 1.3 10^3/uL (0.2-0.9) H 01/18/21 17:30 Eos # (Auto) 0.0 10^3/uL (0.0-0.8) 01/18/21 17:30 Baso # (Auto) 0.0 10^3/uL (0.0-0.1) 01/18/21 17:30 Nucleated RBC % (auto) 0 % 01/18/21 17:30 Nucleated RBCs # 0.0 /100WBC 01/18/21 17:30 PT 15.90 SECONDS (12.1-14.9) H 01/18/21 17:30 INR 1.23 (0.8-1.2) H 01/18/21 17:30 APTT 37.4 SECONDS (23.9-36.7) H 01/18/21 17:30 Specimen Type Arterial 01/18/21 20:03 Sample Site Brachial, left 01/18/21 20:03 ABG pH 7.19 (7.35-7.45) L 01/18/21 20:03 ABG pCO2 16.9 mmHg (35-45) L* 01/18/21 20:03 ABG pO2 127.0 mmHg (80.0-100.0) H 01/18/21 20:03 ABG HCO3 6.4 mmol/L (22-26) L 01/18/21 20:03 ABG Base Excess -19.9 mmol/L (-2.0-2.0) L 01/18/21 20:03 Jeferson Test Pos 01/18/21 20:03 Hematocrit 27.2 % (37-47) L 01/18/21 20:03 O2 Delivery Device Room air 01/18/21 20:03 Aircraft Refueler ID Buttr 01/18/21 20:03 Sodium 138 mmol/L (136-145) 01/18/21 17:30 Potassium 5.2 mmol/L (3.5-5.1) H 01/18/21 17:30 Chloride 92 mmol/L (98-107) L 01/18/21 17:30 Carbon Dioxide 11 mmol/L (22-29) L 01/18/21 17:30 Anion Gap 40.2 (5-19) H 01/18/21 17:30 BUN 20 mg/dL (8-23) 01/18/21 17:30 Creatinine 2.2 mg/dL (0.5-0.9) H 01/18/21 17:30 GFR Calculation 22.4 mL/min (90-130) L 01/18/21 17:30 Glucose 149 mg/dL (65-115) H 01/18/21 17:30 POC Glucose 169 mg/dL (70-110) H 01/18/21 17:17 Calculated Osmolality 291 mOsm/kg (285-295) 01/18/21 17:30 Lactate 9.4 mmol/L (0.5-2.2) H* 01/18/21 17:30 Uric Acid 8.6 mg/dL (2.4-5.7) H 01/18/21 17:30 Calcium 8.1 mg/dL (8.5-10.5) L 01/18/21 17:30 Phosphorus 8.5 mg/dL (2.5-4.5) H* 01/18/21 20:53 Magnesium 1.8 mg/dL (1.7-2.3) 01/18/21 20:53 Total Bilirubin 0.3 mg/dL (0.15-1.2) 01/18/21 17:30 AST 24 U/L (0-32) 01/18/21 17:30 ALT 22 U/L (0-33) 01/18/21 17:30 Alkaline Phosphatase 71 IU/L (35-105) 01/18/21 17:30 Ammonia 20 umol/L (11-51) 01/18/21 20:53 Lactate Dehydrogenase 222 U/L (135-214) H 01/18/21 17:30 Creatine Kinase 186 U/L (26-192) 01/18/21 17:30 Troponin T Baseline 6 ng/L (0-10) 01/18/21 20:53 Troponin T 120 Minute 6.00 ng/L (0-10) 01/18/21 22:30 Delta Troponin T 0 ABS# (0-10) 01/18/21 22:30 NT-Pro-B Natriuret Pep 296 pg/mL (0-125) H 01/18/21 17:30 Total Protein 5.3 g/dL (6.6-8.7) L 01/18/21 17:30 Albumin 2.7 g/dL (3.5-5.2) L 01/18/21 17:30 Globulin 2.6 g/dL (1.3-4.6) 01/18/21 17:30 TSH 6.37 uIU/mL (0.27-4.20) H 01/18/21 17:30 Free T4 4.49 ng/dL (0.82-1.77) H 01/18/21 17:30 Urine Color Yellow (Yellow) 01/18/21 19:34 Urine Appearance Sl hazy (CLEAR) 01/18/21 19:34 Urine pH 5 (5-7) 01/18/21 19:34 Ur Specific [place] 1.030 (1.005-1.030) 01/18/21 19:34 Urine Protein Trace (Negative) 01/18/21 19:34 Urine Glucose (UA) Norm (Normal) 01/18/21 19:34 Urine Ketones Negative (Negative) 01/18/21 19:34 Urine Blood Neg (Negative) 01/18/21 19:34 Urine Nitrate Negative (Negative) 01/18/21 19:34 Urine Bilirubin 1+ (Negative) H 01/18/21 19:34 Urine Urobilinogen Norm mg/dL (Negative) 01/18/21 19:34 Ur Leukocyte Esterase 1+ (Negative) H 01/18/21 19:34 Urine RBC 0-4 /hpf (0-2) H 01/18/21 19:34 Urine WBC 25-40 /hpf (0-5) H 01/18/21 19:34 Ur Squamous Epith Cells 5-10 /hpf (0-5) H 01/18/21 19:34 Ur Transition Epith Cell 0-4 /hpf 01/18/21 19:34 Amorphous Sediment Not Reportable 01/18/21 19:34 Urine Bacteria 2+ /hpf (NONE) H 01/18/21 19:34 Hyaline Casts 0-4 /lpf H 01/18/21 19:34 Salicylates < 0.3 mg/dL (3-10) L 01/18/21 17:30 Urine Opiates Screen Negative ng/mL (Negative) 01/18/21 19:48 Acetaminophen 11.8 ug/mL (10-30) 01/18/21 17:30 Ur Barbiturates Screen Negative ng/mL (Negative) 01/18/21 19:48 Ur Phencyclidine Scrn Negative ng/mL (Negative) 01/18/21 19:48 Ur Amphetamines Screen Negative ng/mL (Negative) 01/18/21 19:48 U Benzodiazepines Scrn Negative ng/mL (Negative) 01/18/21 19:48 Urine Cocaine Screen Negative ng/mL (Negative) 01/18/21 19:48 U Marijuana (THC) Screen Negative ng/mL (Negative) 01/18/21 19:48 Ethyl Alcohol < 10 mg/dL (0-10) 01/18/21 17:30 Serum Ketones Positive (Negative) H 01/18/21 20:53 Impressions Chest X-Ray 01/18/21 00:00 IMPRESSION: Negative for acute abnormality Cervical Spine CT 01/18/21 16:54 IMPRESSION: No acute findings. Chest/Abdomen/Pelvis CT 01/18/21 16:54 IMPRESSION: 1. Negative for traumatic injury to the chest. 2. Coronary artery atherosclerotic calcifications. 3. Left lower lobe atelectasis. IMPRESSION: 1. Negative for acute traumatic injury to the abdominal or pelvic organs 2. Cholecystectomy. 3. Gastric surgical sutures. 4. Left hip intertrochanteric somewhat impacted displaced fracture. 5. Left kidney cyst, negative for follow-up advised. Femur X-Ray 01/18/21 16:54 IMPRESSION: Comminuted intertrochanteric fracture with impaction and displacement of the fracture fragments. Head CT 01/18/21 16:54 IMPRESSION: 1. Negative for intracranial hemorrhage or mass effect. 2. Mild diffuse white matter disease likely reflecting chronic microvascular ischemic changes. Pelvis X-Ray 01/18/21 19:04 IMPRESSION: Intertrochanteric comminuted somewhat impacted displaced fracture. Other data: Prior or outside records reviewed: Reviewed available prior records within our current and former EMR as well as scanned in information from and November referral from [facility] to our orthopedics clinic A&P Assessment and plan (1) Fall at home: Several days ago Status: Acute Qualifiers: Encounter type: initial encounter Qualified Code(s): W19.XXXA - Unspecified fall, initial encounter; Y92.009 - Unspecified place in unspecified non-institutional (private) residence as the place of occurrence of the external cause (2) Intertrochanteric fracture of left hip: Secondary to above Status: Acute Qualifiers: Encounter type: initial encounter Fracture type: closed Fracture alignment: displaced Qualified Code(s): S72.142A - Displaced intertrochanteric fracture of left femur, initial encounter for closed fracture (3) High anion gap metabolic acidosis: Anion gap 40, likely multifactorial from acute renal failure, suspected starvation ketosis, potentially Metformin or other medications contributing. She has a history of alcohol use so alcoholic ketosis is within the differential even with an negative alcohol level. Another consideration with available information is ethylene glycol or methylene ingestion although the patient denies. Status: Acute (4) Lactic acidosis: Status: Acute (5) Acute kidney injury: Laboratory studies from November 07 showed BUN and creatinine of 8/0.6. Has associated mild hypokalemia, significant hyperphosphatemia and hyperuricemia. Limited urine output while in the emergency room medication list does show diuretics and an DARRIUS inhibitor. Unknown if using any NSAIDs. Initial CK level was normal. Status: Acute (6) Macrocytic anemia: With significant drop in H&H. On November 07 H&H was 12.6/38.5. No report of gross bleeding back patient though she does have significant bruising noted around the hip fracture. Could be an acute blood loss component related to injury versus slow losses or chronic inflammation from comorbid conditions. B12 and folate levels were checked in October of this year with B12 being greater than 958 and folate being greater than 19.5. Normal platelet count. Status: Acute (7) Type 2 diabetes mellitus: Pet-lqqhsml-hsrjpungu but not insulin requiring but is on Ozempic and Metformin. Outside records indicate diabetic neuropathy. Is on gabapentin chronically. Status: Chronic Qualifiers: Diabetes mellitus manager long term care insulin use: without manager long term care use Diabetes mellitus complication status: with neurologic complications Diabetes mellitus complication detail: with unspecified neuropathy Qualified Code(s): E11.40 - Type 2 diabetes mellitus with diabetic neuropathy, unspecified (8) History of alcohol dependence: Patient is not fully endorse this but does admit that she is not drinking alcohol now . Available external records indicate treatment with naltrexone that led to her not drinking alcohol. Ethyl alcohol level not high today. Status: Chronic (9) Hyperlipidemia: Chronically on statin therapy. CK level is currently normal. Lipid panel from the end of October did not show significant elevations in any values. Status: Chronic Qualifiers: Hyperlipidemia type: unspecified Qualified Code(s): E78.5 - Hyperlipidemia, unspecified (10) Hypertension: Chronically on DARRIUS inhibitor and diuretic therapy Status: Chronic Qualifiers: Hypertension type: primary hypertension Qualified Code(s): I10 - Essential (primary) hypertension (11) Thyroid disorder: Currently with elevated TSH and elevated free T4. Review of records looks like she has had hypothyroidism in the past and at some point converted to hyperthyroidism. I do not see any medications for the hyperthyroidism. Laboratory studies from November 07 showed a TSH of 0.133 with a free T4 of 1.01 significantly different than those values obtained today. I suspect these values are impacted by acute events. Status: Acute (12) Moderate protein-calorie malnutrition: Secondary to poor oral intake and impact potentially of previous alcohol use Status: Acute (13) Anxiety disorder: Chronically on clonazepam Status: Chronic (14) Major depressive disorder: Chronically on venlafaxine, Seroquel and mirtazapine was added in October or November Status: Chronic Additional A&P Information Reported sarcoidosis Home medication use of albuterol and a record indicating availability of home oxygen for reasons that are unknown to me. Patient denies history of Covid but not a reliable historian. There are indications in the record that she has previously smoked with prescriptions of Chantix in the past so could be COPD without a formal diagnosis. Abnormal urinalysis with epithelial cells noted, present on admission Inpatient admission ICU care for now Orthopedics consultation for hip fracture though need to medically stabilize before surgical intervention Monitor hematoma for expansion Type and screen Pain control Serum osmolality has been sent stat this evening to facilitate determining osmolar gap as soon as possible IV fluids Status post banana bag in the ED Repeat lactic acid Blood cultures, CRP, pro-Bryan Empiric Zosyn although my suspicion currently for an acute infectious process is low Recheck ABG, serum ketones and elevated electrolytes in the morning Sliding scale insulin currently We will need to monitor closely for refeeding syndrome Monitor renal function Had recent B12 and folate levels that were not low Check hemoccult of stool, TIBC, retic PPI Monitor for signs of GI bleeding Watch for indications of alcohol withdrawal Serial neuro exams For now we will continue very low-dose comparatively of scheduled gabapentin and lower doses of as needed clonazepam Serial troponins, check BMP Telemetry monitoring for arrhythmias Recent lipid panel was unremarkable Monitor blood pressures for need to add coverage, home diuretic therapy and DARRIUS inhibitor presently held Recommend repeat TSH and free T4 after acute illness has resolved, not on chronic hyperthyroid treatment nor hypothyroid treatment Dietitian consultation Continue a lower dose of home venlafaxine, other medications including Seroquel and mirtazapine are currently held SCDs for DVT prophylaxis Currently with 2 peripheral IVs Voss catheter for monitoring urine output closely under the circumstances Supportive care otherwise Case management to assist with discharge planning, anticipate need for placement Concerns and plans were discussed with patient as much as she could follow including ICU admission, concerns for significant laboratory abnormalities and need for surgical repair of her hip. Full code Attestations Medical Necessity Statement*: Anticipated stay greater than two midnights in this patient with multiple issues as noted above. She is requiring ICU monitoring currently, IV fluids, IV antibiotics empirically and will need serial laboratory studies in addition to orthopedic surgical intervention. Other concerns and plans are as noted above. Coding Level of Care Code Acute Cnc Operator Programmer for Chg Fwd Diagnoses Fall at home W19.XXXA; Y92.009 Encounter type: initial encounter Intertrochanteric fracture of left hip S72.142A Encounter type: initial encounter Fracture type: closed Fracture alignment: displaced High anion gap metabolic acidosis E87.2 Lactic acidosis E87.2 Acute kidney injury N17.9 Macrocytic anemia D53.9 Type 2 diabetes mellitus E11.40 Diabetes mellitus usp insulin use: without manager long term care use Diabetes mellitus complication status: with neurologic complications Diabetes mellitus complication detail: with unspecified neuropathy History of alcohol dependence F10.21 Hyperlipidemia E78.5 Hyperlipidemia type: unspecified Hypertension I10 Hypertension type: primary hypertension Thyroid disorder E07.9 Moderate protein-calorie malnutrition E44.0 Anxiety disorder F41.9 Major depressive disorder F32.9
[2021-01-18 23:00] VITALS: BP 137/68
[2021-01-18 23:01] LABS: Troponin 5 2HR Delta 0 ABS# (0-10)
[2021-01-19] VITALS (41 sets, daily range): BP systolic 111–153; BP diastolic 64–94; PULSE 103–117; RESP 5–19; TEMP 35.6–36.8; O2SAT 86–100
[2021-01-19] MEDS: sodium chloride 0.9% 1,000 ML 100 ML IV (00:26)
[2021-01-19 01:21] LABS: Lactic Sepsis W/Reflex 7.1 mmol/L (0.5-2.2)
[2021-01-19 02:42] LABS: Reflex Lactate Order REFLEX LACTIC ORDERD
--- NOTE | 2021-01-19 02:45 | ECG_ITS ---
[facility] Test Date: 2021-01-19 Pat Name: Almita Mckinley Department: Room: ICU04 Gender: Female Binding End Stitcher: : 1955 Requested By: Froylan Estrada Order Number: [id number] Viridiana MD: Jc Poe M.D. Measurements Intervals [place] Rate: 106 P: 60 CT: 152 QRS: -11 QRSD: 90 T: 87 QT: 363 QTc: 483 Interpretive Statements SINUS TACHYCARDIA Compared to ECG 01/18/2021 21:51:23 No significant changes Electronically Signed On 01-20-2021 7:46:08 SCREEN PRINTER HELPER by Jc Poe M.D. [id number]
[2021-01-19 03:28] LABS: Troponin 5 6HR Delta 0 ng/L (0-12)
[2021-01-19 03:44] LABS: Lactic Acid level (Lactate) 6.1 mmol/L (0.5-2.2)
[2021-01-19 04:42] LABS: Basophils % 0.2 %; Hematocrit 25.5 % (37.0-47.0); Hemoglobin 7.5 g/dL (11.5-15.3); Lymphocytes # 2.2 10^3/uL (0.8-4.8); Lymphocytes % 13.5 %; Mean Corpuscular HGB Conc 29.4 g/dL (30.0-36.0); Mean Corpuscular Hemoglobin 33.6 pg (28.0-34.0); Mean Corpuscular Volume 114.3 fl (81-99); Mean Platelet Volume 10.1 fL (7.4-10.4); Monocytes # 1.6 10^3/uL (0.2-0.9); Monocytes % 9.9 %; Neutrophils # 12.44 10^3/uL (1.8-7.7); Neutrophils % 75.7 %; Nucleated Red Blood Cells % 0 %; Platelet Count 259 10^3/cmm (130-400); Red Blood Count 2.23 10^6/uL (4.1-5.3); Red Cell Distribution Width 14.2 % (12.1-15.1); White Blood Count 16.4 10^3/uL (4.0-10.0)
[2021-01-19 05:00] LABS: Ketone (Acetest) Serum Positive (Negative)
[2021-01-19 05:02] LABS: INR 1.31 (0.8-1.2)
[2021-01-19 05:11] LABS: Blood Urea Nitrogen 22 mg/dL (8-23); Calcium 7.3 mg/dL (8.5-10.5); Chloride 98 mmol/L (98-107); Glomerular Filtration Rate 19.3 mL/min (90-130); Glucose 167 mg/dL (65-115); Iron 17 ug/dL (37-145); Magnesium 1.7 mg/dL (1.7-2.3); Osmolality Calculated 297 mOsm/kg (285-295); Percent Saturation 15.5 % (20-50); Sodium 140 mmol/L (136-145); Total Iron Binding Capacity 109 mcg/dl; Unsaturated Iron Binding 92 ug/dL (112-347); Uric Acid 7.8 mg/dL (2.4-5.7)
[2021-01-19 05:16] LABS: Procalcitonin 85.48 ng/mL (0-0.5)
[2021-01-19 05:20] LABS: Carbon Dioxide 8 mmol/L (22-29)
[2021-01-19] MEDS: sodium chloride 0.9% 1,000 ML 999 ML IV (05:55)
[2021-01-19] MEDS: vancomycin 1,000 MG in sodium chloride 0.9% 250 ML 250 MG IV (06:00)
[2021-01-19] MEDS: dextrose 5% 1,000 ML 75 ML IV (06:11)
[2021-01-19] MEDS: insulin regular-human 250 UNIT in sodium chloride 0.9% 250 ML IV (06:13)
[2021-01-19 06:19] LABS: ABG PH Result 7.19 (7.35-7.45); Arterial Blood Gas Hematocrit 22.3 % (37-47); Base Excess ABG -19.9 mmol/L (-2.0-2.0); Blood Gas Allen Test Pos; Blood Gas Sample Site Brachial, left; Blood Gas Sample Type Arterial; HCO3 ABG 6.3 mmol/L (22-26); Oxygen Device ROOM AIR
[2021-01-19 06:20] LABS: ABG PCO2 16.5 mmHg (35-45)
[2021-01-19 06:21] LABS: Glucose Point of Care 113 mg/dL (70-110)
[2021-01-19] MEDS: piperacillin-tazobactam 3.375 GM in sodium chloride 0.9% (plus) 50 ML IV ×3 (07:16→21:26)
[2021-01-19 07:17] LABS: Glucose Point of Care 143 mg/dL (70-110)
[2021-01-19] MEDS: sodium chloride 0.9% 1,000 ML 150 ML IV (07:17)
[2021-01-19 08:16] LABS: Glucose Point of Care 174 mg/dL (70-110)
[2021-01-19] MEDS: gabapentin 100 mg Capsule PO ×2 (08:32→14:21)
[2021-01-19] MEDS: venlafaxine ER (24HR) 75 mg Capsule PO (08:32)
[2021-01-19] MEDS: pantoprazole 40 mg SDV IVP (08:32)
[2021-01-19 09:15] LABS: Glucose Point of Care 100 mg/dL (70-110)
[2021-01-19 10:13] LABS: Glucose Point of Care 43 mg/dL (70-110)
[2021-01-19 10:13] LABS: Glucose Point of Care 48 mg/dL (70-110)
[2021-01-19] MEDS: dextrose 50% syringe 50 mL IVP ×2 (10:19→18:18)
[2021-01-19 10:46] LABS: Glucose Point of Care 126 mg/dL (70-110)
[2021-01-19 11:28] LABS: Osmolality Serum 306
[2021-01-19 12:00] LABS: Glucose Point of Care 131 mg/dL (70-110)
[2021-01-19 12:35] LABS: Basophils % 0.1 %; Hematocrit 23.7 % (37.0-47.0); Hemoglobin 7.2 g/dL (11.5-15.3); Lymphocytes # 2.2 10^3/uL (0.8-4.8); Lymphocytes % 18.2 %; Mean Corpuscular HGB Conc 30.4 g/dL (30.0-36.0); Mean Corpuscular Hemoglobin 34.4 pg (28.0-34.0); Mean Corpuscular Volume 113.4 fl (81-99); Monocytes # 1.3 10^3/uL (0.2-0.9); Monocytes % 10.7 %; Neutrophils # 8.29 10^3/uL (1.8-7.7); Neutrophils % 70.1 %; Nucleated Red Blood Cells % 0 %; Platelet Count 236 10^3/cmm (130-400); Red Blood Count 2.09 10^6/uL (4.1-5.3); Red Cell Distribution Width 14.2 % (12.1-15.1); White Blood Count 11.8 10^3/uL (4.0-10.0)
[2021-01-19 12:53] LABS: Blood Urea Nitrogen 23 mg/dL (8-23); Calcium 6.7 mg/dL (8.5-10.5); Glomerular Filtration Rate 22.4 mL/min (90-130); Glucose 131 mg/dL (65-115); Magnesium 1.5 mg/dL (1.7-2.3); Osmolality Calculated 291 mOsm/kg (285-295); Sodium 138 mmol/L (136-145)
--- NOTE | 2021-01-19 12:53 | P.PN_ITS ---
Subjective Subjective: Interval history: Opens her eyes spontaneously, makes eye contact, answers a few based questions. Knows she is in the hospital. Takes her little bit to remember the year, but then names it successfully. Denies pain or discomfort currently. Does not remember how she ended up in the hospital. Vitals/I&O/Wt Last Vital Signs Temp 97.4 F L 01/19/21 08:00 Pulse 112 H 01/19/21 12:30 Resp 16 01/19/21 12:30 BP 133/72 01/19/21 12:30 Pulse Ox 100 01/19/21 12:30 01/18/21 01/19/21 01/19/21 22:59 06:59 14:59 Intake Total 2421.387 / 2421.387 Balance 2421.387 / 2421.387 Weight last 48 hrs Weight 57.153 kg Weight 56.699 kg Physical Exam Const: COMMON NORMALS: no acute distress and patient oriented x3 GENERAL APPEARANCE: comfortable and lethargic ORIENTATION/CONSCIOUSNESS: Yes lethargic HENMT: COMMON NORMALS: oropharynx normal Neck/C-Spine: COMMON NORMALS: no JVD Resp: COMMON NORMALS: normal respiratory effort and clear to auscultation bila terally AUSCULTATION: clear to auscultation bilaterally OTHER: Generally weak. Cardio: COMMON NORMALS: no JVD, regular rhythm, S1 normal heart sound present, S2 normal heart sound present and No murmurs present (Cardio) RHYTHM: regular rhythm HEART SOUNDS: S1 normal heart sound present and S2 normal heart sound present GI: COMMON NORMALS: Normal to inspection, nondistended, normoactive bowel sounds present, Soft to palpation and non-tender PALPATION: Yes Soft to palpation Extremity: COMMON NORMALS: no joint enlargement and no pedal edema Neuro: COMMON NORMALS: patient oriented x3 and moves all extremities SENSORIUM/ORIENTATION: Yes lethargic Skin: COMMON NORMALS: no rashes or lesions noted GENERAL SKIN EXAM: no rashes or lesions noted Urinary Catheter Management^: Voss: Cath Placed During This Visit: yes Reason for Continuing Indwelling Catheter: Accurate Measurement of Urinary Output in Critically Ill Patients Urinary Catheter Date of Insertion: 01/18/21 Urinary Catheter Time of Insertion: 19:15 Data : 01/19/21 04:30 01/19/21 04:30 Micro: Microbiology 01/19/21 12:14 Blood Culture - Preliminary Blood SPECIMEN COLLECTED 01/19/21 12:19 Blood Culture - Preliminary Blood SPECIMEN COLLECTED A&P Assessment and plan (1) Lactic acidosis: Severe lactic acidosis, lactate as high as 9.4 on presentation. BMP is being rechecked. Recheck lactic acid. Follow-up bicarb, anion gap. Continue supportive care, IV hydration. Continue to hold Metformin. Clear liquid p.o. intake as tolerating. Continue treatment of UTI. Discussed with her , discussed possibility of Metformin induced lactic acidosis, although her condition, severe lactic acidosis may resolved. He reports that she used to drink alcohol, but as of about 2 months ago has not been drinking any. However, has not been eating recently. He is not aware of diagnosis of cirrhosis, however, some chronic liver disease could contribute also to lactic acidosis and ketoacidosis especially in setting of poor oral intake as has been in her case. Status: Acute (2) Ketoacidosis: Diabetic dose of doses, versus also component of starvation ketosis given poor oral intake recently. Soft blood glucose. Change IVF to D5-0.45. Insulin drip at lowest rate, will hold if glucose decreasing. Follow BMP, recheck magnesium. Status: Acute (3) Acute kidney injury: Started to produce some urine this morning. Creatinine slightly better 2.2. Continue gentle fluid challenge. Hold DARRIUS inhibitor. Monitor I&O. list does show diuretics and an DARRIUS inhibitor. Unknown if using any NSAIDs. Initial CK level was normal. Status: Acute (4) Intertrochanteric fracture of left hip: After a fall at home. Discussed with Ortho, with her , hip fracture repair after severe metabolic abnormalities, overall condition improves. Status: Acute Qualifiers: Encounter type: initial encounter Fracture type: closed Fracture alignment: displaced Qualified Code(s): S72.142A - Displaced intertrochanteric fracture of left femur, initial encounter for closed fracture (5) High anion gap metabolic acidosis: Multifactorial, as above. Osm gap 9. Anion gap 40, likely multifactorial from acute renal failure, suspected starvation ketosis, potentially Metformin or other medications contributing. She has a history of alcohol use so alcoholic ketosis is within the differential even with an negative alcohol level. Another consideration with available information is ethylene glycol or methylene ingestion although the patient denies. Status: Acute (6) Macrocytic anemia: MAMTA and macrocytic anemia Start iron replacement. Check Hemoccult. Will need referral for endoscopic elevation. Check B12, folic acid. If normal, check MMA. Consider peripheral smear. Also prior alcoholism, although reported no alcoholic drinks in the last [address]pleen normal on CT. 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 Possibly secondary to acute condition. Mood follow-up with recheck thyroid function after she recovers. CT head unremarkable. In case of persistent findings, consider additional imaging with MRI. Status: Acute (9) Type 2 diabetes mellitus: On Ozempic and Metformin. Outside records indicate diabetic neuropathy. Is on gabapentin chronically. Status: Chronic Qualifiers: Diabetes mellitus joint terminal attack controller insulin use: without joint terminal attack controller use Diabetes mellitus complication status: with neurologic complications Diabetes mellitus complication detail: with unspecified neuropathy Qualified Code(s): E11.40 - Type 2 diabetes mellitus with diabetic neuropathy, unspecified (10) History of alcohol dependence: No alcoholic drinks and last 2 months as per . She does not have liver cirrhosis far as he knows. Patient is not fully endorse this but does admit that she is not drinking alcohol now . Available external records indicate treatment with naltrexone that led to her not drinking alcohol. Ethyl alcohol level not high today. Status: Chronic (11) Hyperlipidemia: Chronically on statin therapy. CK level is currently normal. Lipid panel from the end of October did not show significant elevations in any values. Status: Chronic Qualifiers: Hyperlipidemia type: unspecified Qualified Code(s): E78.5 - Hype rlipidemia, unspecified (12) Hypertension: Chronically on DARRIUS inhibitor and diuretic therapy Status: Chronic Qualifiers: Hypertension type: primary hypertension Qualified Code(s): I10 - Essential (primary) hypertension (13) Moderate protein-calorie malnutrition: Secondary to poor oral intake and impact potentially of previous alcohol use P.o. intake is tolerating. Add Ensure clear with meals. Status: Acute (14) Anxiety disorder: Chronically on clonazepam Status: Chronic (15) Major depressive disorder: Chronically on venlafaxine, Seroquel and mirtazapine was added in October or November Status: Chronic Additional A&P Information Reported sarcoidosis Home medication use of albuterol and a record indicating availability of home oxygen for reasons that are unknown to me. Patient denies history of Covid but not a reliable historian. There are indications in the record that she has previously smoked with prescriptions of Chantix in the past so could be COPD without a formal diagnosis. Abnormal urinalysis with epithelial cells noted, present on admission: Continue. Zosyn for possible UTI. Follow-up urine culture. Attestations Medical Necessity Statement*: Continue admission for assessment management of multiple metabolic derangements, severe lactic acidosis, ketoacidosis, ESTHER, other problems as outlined above. Critical Care Time: The high probability of a clinically significant, sudden or life threatening deterioration of the patient's endocrine and metabolic system(s) with severe lactic acidosis, DKA among additional noncritical problems as above required my full and direct attention, intervention and personal management. The critical care time is as shown. This time is in addition to time spent performing any reported procedures but includes the following: [x] Data and vital sign review and interpretation [x] Patient assessment, examination and intervention [x] Documentation [x] Medication orders and management Critical Care Time (min): 40 Coding Level of Care Code Acute Electronics System Mechanic for jeanette De Los Santos Diagnoses Lactic acidosis E87.2 Ketoacidosis E87.2 Acute kidney injury N17.9 Intertrochanteric fracture of left hip S72.142A Encounter type: initial encounter Fracture type: closed Fracture alignment: displaced High anion gap metabolic acidosis E87.2 Macrocytic anemia D53.9 Fall at home W19.XXXA; Y92.009 Encounter type: initial encounter Thyroid disorder E07.9 Type 2 diabetes mellitus E11.40 Diabetes mellitus joint terminal attack controller insulin use: without joint terminal attack controller use Diabetes mellitus complication status: with neurologic complications Diabetes mellitus complication detail: with unspecified neuropathy History of alcohol dependence F10.21 Hyperlipidemia E78.5 Hyperlipidemia type: unspecified Hypertension I10 Hypertension type: primary hypertension Moderate protein-calorie malnutrition E44.0 Anxiety disorder F41.9 Major depressive disorder F32.9
[2021-01-19 12:54] LABS: Slide Review Slide Review Perform
[2021-01-19 13:07] LABS: Anion Gap 32.7 (5-19); Carbon Dioxide 9 mmol/L (22-29); Chloride 101 mmol/L (98-107); Potassium 4.7 mmol/L (3.5-5.1)
[2021-01-19] MEDS: magnesium sulfate premix 2 GM/50 ML PIGGYBACK IV (13:28)
[2021-01-19] MEDS: dextrose 5%-sod chloride 0.45% 1,000 ML 75 ML IV (13:28)
[2021-01-19 14:10] LABS: Glucose Point of Care 172 mg/dL (70-110)
[2021-01-19 14:32] LABS: Lactate (Lactic Acid level) 2.6 mmol/L (0.5-2.2)
[2021-01-19 15:24] LABS: Vitamin B12 > 2000 pg/mL (232-1245)
[2021-01-19 15:30] LABS: Glucose Point of Care 111 mg/dL (70-110)
[2021-01-19 16:16] LABS: Glucose Point of Care 124 mg/dL (70-110)
[2021-01-19 16:18] LABS: Folate Level > 20.0 ng/mL (4.8-37.3)
[2021-01-19 17:19] LABS: Glucose Point of Care 72 mg/dL (70-110)
--- NOTE | 2021-01-19 18:07 | PC.NURSE ---
Shift Note Frequent safety and comfort rounds continue. Orders and nursing care completed as indicated. Patient remains on insulin drip, see labs. Patient A&OX3 with bits of confusion. Patient monitored for response to intervention and treatments. Education provided includes new medications, frequent positions changes, and s/s of infection. Patient will need reinforcement with education. Will continue to monitor.
[2021-01-19 18:14] LABS: Blood Urea Nitrogen 26 mg/dL (8-23); Calcium 6.7 mg/dL (8.5-10.5); Carbon Dioxide 14 mmol/L (22-29); Chloride 102 mmol/L (98-107); Glomerular Filtration Rate 23.6 mL/min (90-130); Glucose 56 mg/dL (65-115); Magnesium 1.9 mg/dL (1.7-2.3); Osmolality Calculated 284 mOsm/kg (285-295); Sodium 136 mmol/L (136-145)
[2021-01-19 18:16] LABS: Anion Gap 24.1 (5-19); Potassium 4.1 mmol/L (3.5-5.1)
[2021-01-19 18:19] LABS: Glucose Point of Care 54 mg/dL (70-110)
[2021-01-19 19:13] LABS: Glucose Point of Care 105 mg/dL (70-110)
[2021-01-19] MEDS: sodium chloride 23.4% 8.5 MEQ in dextrose 10% 250 ML 75 MEQ IV (19:29)
[2021-01-19] MEDS: sodium chloride 0.9% 1,000 ML 50 ML IV (20:32)
[2021-01-19 20:34] LABS: Glucose Point of Care 128 mg/dL (70-110)
[2021-01-19 21:26] LABS: Glucose Point of Care 132 mg/dL (70-110)
[2021-01-19 21:38] LABS: ABG PCO2 21.8 mmHg (35-45); ABG PH Result 7.41 (7.35-7.45); Alveolar-Arterial Oxygen Gradi 1.9 mmHg (5-10); Arterial Blood Gas Hematocrit 22.2 % (37-47); Base Excess ABG -9.8 mmol/L (-2.0-2.0); Blood Gas Allen Test Pos; Blood Gas Operator Identificat JB; Blood Gas Sample Site Radial, right; Blood Gas Sample Type Arterial; Carboxyhemoglobin 0.9 %THgb (0.4-20.1); HCO3 ABG 13.7 mmol/L (22-26); HGB O2 Sat 96.8 % (95-100); Ionized Calcium Level - ABG 1.1 mmol/L (1.1-1.4); Methemoglobin 1.3 % (0.4-1.5); Oxygen Device ROOM AIR; Potassium Level - ABG 3.5 mmol/L (3.5-5.0); Total Hemoglobin 7.2 g/dL (12-16)
[2021-01-19 22:28] LABS: Glucose Point of Care 74 mg/dL (70-110)
[2021-01-19 22:43] LABS: Blood Urea Nitrogen 26 mg/dL (8-23); Calcium 6.9 mg/dL (8.5-10.5); Carbon Dioxide 10 mmol/L (22-29); Chloride 101 mmol/L (98-107); Glomerular Filtration Rate 22.4 mL/min (90-130); Glucose 108 mg/dL (65-115); Lactate (Lactic Acid level) 3.5 mmol/L (0.5-2.2); Magnesium 1.8 mg/dL (1.7-2.3); Osmolality Calculated 289 mOsm/kg (285-295); Phosphorus 4.5 mg/dL (2.5-4.5); Sodium 137 mmol/L (136-145)
[2021-01-19 22:44] LABS: Anion Gap 30.4 (5-19); Potassium 4.4 mmol/L (3.5-5.1)
[2021-01-20] VITALS (25 sets, daily range): BP systolic 99–167; BP diastolic 68–93; PULSE 103–121; RESP 11–20; TEMP 36.7–38.2; O2SAT 98–100
[2021-01-20 00:23] LABS: Glucose Point of Care 81 mg/dL (70-110)
[2021-01-20 00:23] LABS: Glucose Point of Care 91 mg/dL (70-110)
[2021-01-20 01:55] LABS: Glucose Point of Care 129 mg/dL (70-110)
[2021-01-20 01:55] LABS: Glucose Point of Care 146 mg/dL (70-110)
[2021-01-20 03:11] LABS: Glucose Point of Care 125 mg/dL (70-110)
[2021-01-20 04:22] LABS: Glucose Point of Care 137 mg/dL (70-110)
[2021-01-20 04:25] LABS: Basophils % 0.3 %; Hematocrit 22.9 % (37.0-47.0); Lymphocytes # 1.4 10^3/uL (0.8-4.8); Lymphocytes % 20.1 %; Mean Corpuscular HGB Conc 30.6 g/dL (30.0-36.0); Mean Corpuscular Hemoglobin 33.7 pg (28.0-34.0); Mean Corpuscular Volume 110.1 fl (81-99); Mean Platelet Volume 9.9 fL (7.4-10.4); Monocytes # 0.4 10^3/uL (0.2-0.9); Monocytes % 6.4 %; Neutrophils % 72.6 %; Nucleated Red Blood Cells % 0.3 %; Platelet Count 189 10^3/cmm (130-400); Red Blood Count 2.08 10^6/uL (4.1-5.3); Red Cell Distribution Width 14.3 % (12.1-15.1); White Blood Count 6.8 10^3/uL (4.0-10.0)
[2021-01-20 04:51] LABS: Alanine Aminotransferase 17 U/L (0-33); Albumin Level 2.2 g/dL (3.5-5.2); Alkaline Phosphatase 61 IU/L (35-105); Blood Urea Nitrogen 26 mg/dL (8-23); Calcium 6.8 mg/dL (8.5-10.5); Carbon Dioxide 12 mmol/L (22-29); Chloride 102 mmol/L (98-107); Globulin 2.1 g/dL (1.3-4.6); Glucose 138 mg/dL (65-115); Magnesium 1.7 mg/dL (1.7-2.3); Osmolality Calculated 289 mOsm/kg (285-295); Phosphorus 3.6 mg/dL (2.5-4.5); Sodium 136 mmol/L (136-145); Total Bilirubin 0.3 mg/dL (0.15-1.2); Total Protein 4.3 g/dL (6.6-8.7); Uric Acid 7.6 mg/dL (2.4-5.7)
[2021-01-20 04:52] LABS: Lactate (Lactic Acid level) 1.7 mmol/L (0.5-2.2)
[2021-01-20 04:54] LABS: Anion Gap 25.8 (5-19); Aspartate Amino Transferase 25 U/L (0-32); Potassium 3.8 mmol/L (3.5-5.1); Procalcitonin 43.55 ng/mL (0-0.5)
[2021-01-20 05:04] LABS: Ketone (Acetest) Serum Negative (Negative)
[2021-01-20 05:06] LABS: Slide Review Slide Review Perform
[2021-01-20 05:31] LABS: Glucose Point of Care 137 mg/dL (70-110)
[2021-01-20] MEDS: piperacillin-tazobactam 3.375 GM in sodium chloride 0.9% (plus) 50 ML IV ×3 (05:39→21:54)
[2021-01-20 06:35] LABS: Glucose Point of Care 137 mg/dL (70-110)
[2021-01-20 07:45] LABS: Glucose Point of Care 154 mg/dL (70-110)
[2021-01-20 08:37] LABS: Glucose Point of Care 94 mg/dL (70-110)
[2021-01-20] MEDS: ferrous sulfate EC 325 mg Tablet PO (09:21)
[2021-01-20] MEDS: pantoprazole 40 mg SDV IVP ×2 (09:22→20:36)
[2021-01-20] MEDS: gabapentin 100 mg Capsule PO ×3 (09:22→20:36)
[2021-01-20] MEDS: venlafaxine ER (24HR) 75 mg Capsule PO (09:22)
--- NOTE | 2021-01-20 09:45 | PM.PN ---
Subjective Subjective: Interval history: She reports she is feeling better. She is not bothered by anything currently. However, appears may be somewhat more confused. She is not sure where she is, states friend's house, and cannot name the current year. Vitals/I&O/Wt Last Vital Signs Temp 98.1 F 01/20/21 00:00 Pulse 107 H 01/20/21 08:04 Resp 13 01/20/21 06:00 BP 140/86 01/20/21 06:00 Pulse Ox 100 01/20/21 08:04 01/19/21 01/20/21 01/20/21 22:59 06:59 14:59 Intake Total 1050.293 / 4447.612 193.853 / 4641.465 Output Total 1400 / 1400 Balance 1050.293 / 4447.612 -1206.147 / 3241.465 Weight last 48 hrs Weight 62.142 kg Weight 57.153 kg Weight 56.699 kg Physical Exam Const: COMMON NORMALS: no acute distress GENERAL APPEARANCE: comfortable ORIENTATION/CONSCIOUSNESS: Yes awake and Yes confused HENMT: COMMON NORMALS: oropharynx normal Neck/C-Spine: COMMON NORMALS: no JVD Resp: COMMON NORMALS: normal respiratory effort and clear to auscultation bilaterally AUSCULTATION: clear to auscultation bilaterally OTHER: Generally weak. Cardio: COMMON NORMALS: no JVD, regular rhythm, S1 normal heart sound present, S2 normal heart sound present and No murmurs present (Cardio) RHYTHM: regular rhythm HEART SOUNDS: S1 normal heart sound present and S2 normal heart sound present GI: COMMON NORMALS: Normal to inspection, nondistended, normoactive bowel sounds present, Soft to palpation and non-tender PALPATION: Yes Soft to palpation Extremity: COMMON NORMALS: no joint enlargement and no pedal edema Neuro: COMMON NORMALS: moves all extremities Skin: COMMON NORMALS: no rashes or lesions noted GENERAL SKIN EXAM: no rashes or lesions noted Urinary Catheter Management^: Voss: Cath Placed During This Visit: yes Reason for Continuing Indwelling Catheter: Accurate Measurement of Urinary Output in Critically Ill Patients Urinary Catheter Date of Insertion: 01/18/21 Urinary Catheter Time of Insertion: 19:15 Data : 01/20/21 04:10 01/20/21 04:10 Micro: Microbiology 01/18/21 19:34 Urine Culture - Preliminary Urine,Clean Catch Gram Negative Rods 01/19/21 19:15 Occult Blood (FIT) - Final Stool - Stool Aspirate 01/19/21 12:14 Blood Culture - Preliminary Blood SPECIMEN COLLECTED 01/19/21 12:19 Blood Culture - Preliminary Blood SPECIMEN COLLECTED A&P Assessment and plan (1) Acute encephalopathy: Multifactorial, both metabolic with metabolic acidosis, ketoacidosis, as well as infection related secondary to urinary tract infection. Continue treatment of both. Continue supportive care, reorient. Today she is more alert but less oriented. Status: Acute (2) Ketoacidosis: Blood glucose soft. Had to be started on D10. Continues on drip. Recheck metabolic panel, VBG. Replace magnesium. Diabetic dose of doses, versus also component of starvation ketosis given poor oral intake recently. P.o. intake is tolerating. Add Ensure. Status: Acute (3) Acute kidney injury: Possibly also contributing to metabolic acidosis. Gradual improvement. Producing urine. Continue gentle IV hydration. Hold DARRIUS inhibitor. Hold DARRIUS inhibitor. Monitor I&O. list does show diuretics and an DARRIUS inhibitor. Unknown if using any NSAIDs. Initial CK level was normal. Status: Acute (4) Lactic acidosis: Resolved. Severe lactic acidosis, lactate as high as 9.4 on presentation. BMP is being rechecked. Recheck lactic acid. Follow-up bicarb, anion gap. Continue supportive care, IV hydration. Continue to hold Metformin. Clear liquid p.o. intake as tolerating. Continue treatment of UTI. Discussed with her , discussed possibility of Metformin induced lactic acidosis, although her condition, severe lactic acidosis may resolved. He reports that she used to drink alcohol, but as of about 2 months ago has not been drinking any. However, has not been eating recently. He is not aware of diagnosis of cirrhosis, however, some chronic liver disease could contribute also to lactic acidosis and ketoacidosis especially in setting of poor oral intake as has been in her case. Status: Acute (5) Intertrochanteric fracture of left hip: After a fall at home. Discussed with Ortho, with her , hip fracture repair after severe metabolic abnormalities, overall condition improves. Status: Acute Qualifiers: Encounter type: initial encounter Fracture type: closed Fracture alignment: displaced Qualified Code(s): S72.142A - Displaced intertrochanteric fracture of left femur, initial encounter for closed fracture (6) High anion gap metabolic acidosis: Multifactorial, as above. Osm gap 9. Anion gap 40, likely multifactorial from acute renal failure, suspected starvation ketosis, potentially Metformin or other medications contributing. She has a history of alcohol use so alcoholic ketosis is within the differential even with an negative alcohol level. Another consideration with available information is ethylene glycol or methylene ingestion although the patient denies. Status: Acute (7) Macrocytic anemia: Hemoglobin has been decreasing, down to 7. Will give 1 unit of pRBC transfusion. Hemoccult is positive. Increase PPI to twice daily. Once she is doing better at some point would benefit from endoscopic evaluation. MAMTA and macrocytic anemia Start iron replacement. Check B12, folic acid. If normal, check MMA. Consider peripheral smear. Also prior alcoholism, although reported no alcoholic drinks in the last [address] months[address] Spleen normal on CT. 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 Possibly secondary to acute condition. Mood follow-up with recheck thyroid function after she recovers. CT head unremarkable. In case of persistent findings, consider additional imaging with MRI. Status: Acute (10) Type 2 diabetes mellitus: On Ozempic and Metformin. Outside records indicate diabetic neuropathy. Is on gabapentin chronically. Status: Chronic Qualifiers: Diabetes mellitus intermission coordinator insulin use: without retirement use Diabetes mellitus complication status: with neurologic complications Diabetes mellitus complication detail: with unspecified neuropathy Qualified Code(s): E11.40 - Type 2 diabetes mellitus with diabetic neuropathy, unspecified (11) History of alcohol dependence: No alcoholic drinks and last 2 months as per . She does not have liver cirrhosis far as he knows. Patient is not fully endorse this but does admit that she is not drinking alcohol now . Available external records indicate treatment with naltrexone that led to her not drinking alcohol. Ethyl alcohol level not high today. Status: Chronic (12) Hyperlipidemia: Chronically on statin therapy. CK level is currently normal. Lipid panel from the end of October did not show significant elevations in any values. Status: Chronic Qualifiers: Hyperlipidemia type: unspecified Qualified Code(s): E78.5 - Hyperlipidemia, unspecified (13) Hypertension: Chronically on DARRIUS inhibitor and diuretic therapy Status: Chronic Qualifiers: Hypertension type: primary hypertension Qualified Code(s): I10 - Essential (primary) hypertension (14) Moderate protein-calorie malnutrition: Secondary to poor oral intake and impact potentially of previous alcohol use P.o. intake is tolerating. Add Ensure clear with meals. Status: Acute (15) Anxiety disorder: Chronically on clonazepam Status: Chronic (16) Major depressive disorder: Chronically on venlafaxine, Seroquel and mirtazapine was added in October or November Status: Chronic (17) UTI (urinary tract infection): Continue Zosyn. Status: Acute Additional A&P Information Reported sarcoidosis Home medication use of albuterol and a record indicating availability of home oxygen for reasons that are unknown to me. Patient denies history of Covid but not a reliable historian. There are indications in the record that she has previously smoked with prescriptions of Chantix in the past so could be COPD without a formal diagnosis. Attestations Medical Necessity Statement*: Continue admission for assessment of management of acute encephalopathy, metabolic abnormalities with ketoacidosis, acute kidney injury, UTI, anemia. Critical Care Time: The high probability of a clinically significant, sudden or life threatening deterioration of the patient's endocrine system(s) with DKA required my full and direct attention, intervention and personal management. The critical care time is as shown. This time is in addition to time spent performing any reported procedures but includes the following: x Data and vital sign review and interpretation x Patient assessment, examination and intervention x Documentation x Medication orders and management Critical Care Time (min): 35 Coding Level of Care Code Acute Iridologist for [facility] Fwd Diagnoses Acute encephalopathy G93.40 Ketoacidosis E87.2 Acute kidney injury N17.9 Lactic acidosis E87.2 Intertrochanteric fracture of left hip S72.142A Encounter type: initial encounter Fracture type: closed Fracture alignment: displaced High anion gap metabolic acidosis E87.2 Macrocytic anemia D53.9 Fall at home W19.XXXA; Y92.009 Encounter type: initial encounter Thyroid disorder E07.9 Type 2 diabetes mellitus E11.40 Diabetes mellitus intermission coordinator insulin use: without retirement use Diabetes mellitus complication status: with neurologic complications Diabetes mellitus complication detail: with unspecified neuropathy History of alcohol dependence F10.21 Hyperlipidemia E78.5 Hyperlipidemia type: unspecified Hypertension I10 Hypertension type: primary hypertension Moderate protein-calorie malnutrition E44.0 Anxiety disorder F41.9 Major depressive disorder F32.9 UTI (urinary tract infection) N39.0
[2021-01-20 09:59] LABS: Glucose Point of Care 85 mg/dL (70-110)
[2021-01-20 10:38] LABS: Glucose Point of Care 71 mg/dL (70-110)
--- NOTE | 2021-01-20 10:45 | PC.CHAP ---
Pastoral Care Encounter/Spiritual Assessment Type of Contact [] Declined as400 programmer visit [] Patient/Family/Request visit [] Outpatient visit [] Follow-up visit [] Physician referral [] Code/Alert [XX] Routine visit [] Staff referral [] Actively dying [] Patient sleeping [] Family support [] [] Out of room [] Palliative care [] [] Receiving care in room [] Pre-surgical visit [] Trauma [] Long length of stay [XX] ICU visit [] Other: Relational/Emotional Strength [] Patient feels connected with others/family/visitors/staff [] Distress [] Loneliness/isolation [] Abandonment Spirituality of Patient [] Person of [place] [] Attends Islam of their [place] [] Believes in Prayer [] Reads Bible or Spiritism materials [] There are Spiritual issues to be addressed Stock Cutter Interventions [] Prayer [] Active listening [] Non-anxious presence [] Spiritual/emotional support [] Crisis/trauma care [] Spiritual counseling [] Bereavement support [] Provided bereavement packet [] Provided Bible/devotional materials [] Provided toy/stuffed animal, coloring book to patient or family member [] Provided Communion [] Anointing/[place] [] Salvation [] Completed spiritual assessment [XX] Other: Discussed alternative communication strategies with staff. Impact on Illness or Injury [] Angry [] Fearful [] Anxious [] Often cries [] Exhaustion [] Unable to work [] Unable to attend religious [] Unable to walk/stand [] Unable to read [] Unable to drive [] Unable to eat/drink [] Unable to sleep [] Unable to be with family [] Patient intubated [] Other: Summary Pt cannot complete her sentences. Stock Cutter attempted multiple ways to communicate. Before offering prayer, as400 programmer checked with nursing staff re: any tenriism preferences; none were noted. Stock Cutter prayed and pt calmed down. Time spent with patient: 15 mins (including time discussing patient and communication strategies with staff)
[2021-01-20] MEDS: sodium chloride 0.9% (100 ml) 100 ML (11:07)
[2021-01-20 11:28] LABS: Glucose Point of Care 111 mg/dL (70-110)
[2021-01-20 12:29] LABS: Glucose Point of Care 107 mg/dL (70-110)
[2021-01-20 13:53] LABS: Glucose Point of Care 135 mg/dL (70-110)
[2021-01-20 14:41] LABS: Glucose Point of Care 82 mg/dL (70-110)
[2021-01-20 15:36] LABS: Glucose Point of Care 114 mg/dL (70-110)
[2021-01-20 16:33] LABS: Glucose Point of Care 168 mg/dL (70-110)
[2021-01-20] MEDS: sodium chloride 0.9% 1,000 ML 50 ML IV (17:16)
[2021-01-20 17:38] LABS: Glucose Point of Care 104 mg/dL (70-110)
--- NOTE | 2021-01-20 17:46 | PC.NURSE ---
Shift Note Frequent safety and comfort rounds continue. Orders and nursing care completed as indicated. Patient continues to need insulin drip. Patient had 1,600ml out in urine and a liquid bowel movement. Patient received bath and linen change this afternoon. Mrs. Mckinley received one unit of blood per physician's orders, see labs. called for an update on plan of care and noted to be visiting tomorrow afternoon. Patient monitored for response to intervention and treatments. Education provided includes new medication, frequent position changes due to redness on bottom, and importance of iv. Patient and verbalized understanding. Will continue to monitor.
[2021-01-20 18:36] LABS: Glucose Point of Care 100 mg/dL (70-110)
[2021-01-20 19:52] LABS: Blood Urea Nitrogen 17 mg/dL (8-23); Calcium 6.9 mg/dL (8.5-10.5); Carbon Dioxide 13 mmol/L (22-29); Chloride 97 mmol/L (98-107); Glomerular Filtration Rate 41.1 mL/min (90-130); Glucose 86 mg/dL (65-115); Osmolality Calculated 277 mOsm/kg (285-295); Sodium 133 mmol/L (136-145)
[2021-01-20 20:01] LABS: Anion Gap 26.5 (5-19); Potassium 3.5 mmol/L (3.5-5.1)
[2021-01-20] MEDS: morphine 4 mg/mL SDV 1 mL 2 MG IVP (20:36)
[2021-01-20] MEDS: CLONazepam 1 mg Tablet 0.5 MG PO (20:38)
[2021-01-21] VITALS (22 sets, daily range): BP systolic 112–174; BP diastolic 86–105; PULSE 100–121; RESP 10–23; TEMP 36.6–37.3; O2SAT 98–100
[2021-01-21 00:31] LABS: Glucose Point of Care 113 mg/dL (70-110)
[2021-01-21 00:31] LABS: Glucose Point of Care 113 mg/dL (70-110)
[2021-01-21 00:31] LABS: Glucose Point of Care 98 mg/dL (70-110)
[2021-01-21 00:31] LABS: Glucose Point of Care 91 mg/dL (70-110)
[2021-01-21 00:31] LABS: Glucose Point of Care 87 mg/dL (70-110)
[2021-01-21 00:31] LABS: Glucose Point of Care 93 mg/dL (70-110)
[2021-01-21 04:47] LABS: Alanine Aminotransferase 16 U/L (0-33); Albumin Level 2.1 g/dL (3.5-5.2); Alkaline Phosphatase 76 IU/L (35-105); Blood Urea Nitrogen 14 mg/dL (8-23); Calcium 7.1 mg/dL (8.5-10.5); Carbon Dioxide 14 mmol/L (22-29); Chloride 97 mmol/L (98-107); Globulin 2.4 g/dL (1.3-4.6); Glomerular Filtration Rate 55.6 mL/min (90-130); Glucose 114 mg/dL (65-115); Magnesium 1.5 mg/dL (1.7-2.3); Osmolality Calculated 279 mOsm/kg (285-295); Sodium 134 mmol/L (136-145); Total Bilirubin 0.4 mg/dL (0.15-1.2); Total Protein 4.5 g/dL (6.6-8.7)
[2021-01-21 04:50] LABS: Aspartate Amino Transferase 25 U/L (0-32)
[2021-01-21 05:21] LABS: Basophils % 0.1 %; Eosinophils % 0.3 %; Hemoglobin 9.1 g/dL (11.5-15.3); Lymphocytes # 1.4 10^3/uL (0.8-4.8); Mean Corpuscular HGB Conc 33.7 g/dL (30.0-36.0); Mean Corpuscular Hemoglobin 33.5 pg (28.0-34.0); Mean Corpuscular Volume 99.3 fl (81-99); Monocytes # 0.7 10^3/uL (0.2-0.9); Monocytes % 10.1 %; Neutrophils # 4.65 10^3/uL (1.8-7.7); Neutrophils % 68.3 %; Nucleated Red Blood Cells % 0.3 %; Platelet Count 149 10^3/cmm (130-400); Red Blood Count 2.72 10^6/uL (4.1-5.3); Red Cell Distribution Width 16.1 % (12.1-15.1); White Blood Count 6.8 10^3/uL (4.0-10.0)
[2021-01-21 05:23] LABS: Add RBC Morph Yes; Slide Review Slide Review Perform
[2021-01-21 05:24] LABS: RBC Morph Comp No
[2021-01-21 05:25] LABS: Toxic Vacuolation 1+
[2021-01-21] MEDS: magnesium sulfate premix 2 GM/50 ML PIGGYBACK IV ×2 (05:57→05:58)
[2021-01-21] MEDS: piperacillin-tazobactam 3.375 GM in sodium chloride 0.9% (plus) 50 ML IV ×3 (05:59→22:00)
[2021-01-21] MEDS: vancomycin 1,000 MG in sodium chloride 0.9% 250 ML 250 MG IV (06:26)
[2021-01-21] MEDS: lidocaine 1% 5 ML in potassium chloride premix 100 ML 25 ML IV (06:56)
[2021-01-21] MEDS: ferrous sulfate EC 325 mg Tablet PO (08:19)
[2021-01-21] MEDS: venlafaxine ER (24HR) 75 mg Capsule PO (08:19)
[2021-01-21] MEDS: gabapentin 100 mg Capsule PO ×3 (08:20→22:00)
[2021-01-21] MEDS: pantoprazole 40 mg SDV IVP ×2 (08:20→22:00)
[2021-01-21] MEDS: lactated ringers 1,000 ML 30 ML IV (09:15)
[2021-01-21 12:04] LABS: Glucose Point of Care 186 mg/dL (70-110)
[2021-01-21 12:04] LABS: Glucose Point of Care 165 mg/dL (70-110)
[2021-01-21 12:04] LABS: Glucose Point of Care 72 mg/dL (70-110)
[2021-01-21 12:04] LABS: Glucose Point of Care 116 mg/dL (70-110)
[2021-01-21 12:04] LABS: Glucose Point of Care 129 mg/dL (70-110)
[2021-01-21 12:04] LABS: Glucose Point of Care 183 mg/dL (70-110)
[2021-01-21 12:04] LABS: Glucose Point of Care 109 mg/dL (70-110)
[2021-01-21 12:04] LABS: Glucose Point of Care 98 mg/dL (70-110)
[2021-01-21 12:04] LABS: Glucose Point of Care 100 mg/dL (70-110)
[2021-01-21 12:04] LABS: Glucose Point of Care 64 mg/dL (70-110)
--- NOTE | 2021-01-21 12:05 | P.PN_ITS ---
Subjective Subjective: Interval history: She is more alert and interactive today. It takes her time to gather his thoughts, her responses are meandering, and she does not always reach a point. She is having some difficulty expressing them and finding words that she is trying to say. When asked how she ended up in the hospital, she first starts telling me that she was brought here after getting out of her car and falling over and fainting, then tells me that it was for 's truck. Sounds like they had just gotten back from somewhere and she tried to get out of the truck and fell down. She could not give any more details. Asked about alcohol consumption, she states occasionally. When asked about what kind of alcohol, take some time to think and states, clamato beer drink. When asked about drinking any fluids like antifreeze/coolant warm when chilled water solution, denies, similarly denies consuming any isopropyl alcohol, making a disgusted face and saying bleh! . Tells me she was fed this morning, spontaneously starts describing what she was given, start with Myla, then is unable to list any further, asks if I could ask the nurse as she would like to get the list . Vitals/I&O/Wt Last Vital Signs Temp 98.0 F 01/21/21 08:00 Pulse 109 H 01/21/21 10:00 Resp 16 01/21/21 10:00 BP 159/90 01/21/21 10:00 Pulse Ox 98 01/21/21 09:16 01/20/21 01/21/21 01/21/21 22:59 06:59 14:59 Intake Total 2405.3 / 4079.578 1114.166 / 5193.744 2320.227 / 2320.227 Output Total 3350 / 3350 1850 / 5200 1950 / 1950 Balance -944.7 / 729.578 -735.834 / -6.256 370.227 / 370.227 Weight last 48 hrs Weight 58.786 kg Weight 62.142 kg Physical Exam Const: COMMON NORMALS: no acute distress GENERAL APPEARANCE: cooperative and comfortable ORIENTATION/CONSCIOUSNESS: Yes awake and Yes confused (Less than yesterday, but still confused) HENMT: COMMON NORMALS: oropharynx normal Neck/C-Spine: COMMON NORMALS: no JVD Resp: COMMON NORMALS: normal respiratory effort and clear to auscultation bilaterally AUSCULTATION: clear to auscultation bilaterally OTHER: Generally weak. Cardio: COMMON NORMALS: no JVD, regular rhythm, S1 normal heart sound present, S2 normal heart sound present and No murmurs present (Cardio) RHYTHM: regular rhythm HEART SOUNDS: S1 normal heart sound present and S2 normal heart sound present GI: COMMON NORMALS: Normal to inspection, nondistended, normoactive bowel sounds present, Soft to palpation and non-tender PALPATION: Yes Soft to palpation Extremity: COMMON NORMALS: no joint enlargement and no pedal edema Neuro: COMMON NORMALS: moves all extremities Skin: COMMON NORMALS: no rashes or lesions noted GENERAL SKIN EXAM: no rashes or lesions noted Urinary Catheter Management^: Voss: Cath Placed During This Visit: yes Reason for Continuing Indwelling Catheter: Accurate Measurement of Urinary Output in Critically Ill Patients Urinary Catheter Date of Insertion: 01/18/21 Urinary Catheter Time of Insertion: 19:15 Data : 01/21/21 04:25 01/21/21 04:25 Micro: Microbiology 01/18/21 19:34 Urine Culture - Final Urine,Clean Catch Enterobacter aerogenes 01/19/21 12:14 Blood Culture - Preliminary Blood NEGATIVE TO DATE 01/19/21 12:19 Blood Culture - Preliminary Blood NEGATIVE TO DATE A&P Assessment and plan (1) Acute encephalopathy: Better today, more alert, oriented. Still confused. Pure anion gap metabolic acidosis. Bicarb again improving, anion gap persistently elevated. Renal function now appears to be improving, creatinine down to 1, ESTHER resolving. Possible alcoholic ketoacidosis, oral intake is tolerating. Anticipate metabolic acidosis to improve as well with improving renal function. Resumption of oral intake. Will transition from insulin drip to subcutaneous insulin. Continue treatment of UTI. Obtain PT, OT assessment. Multifactorial, both metabolic with metabolic acidosis, ketoacidosis, as well as infection related secondary to urinary tract infection. Continue treatment of both. Continue supportive care, reorient. Today she is more alert but less oriented. Status: Acute (2) Ketoacidosis: Transition to subcutaneous insulin. Oral intake is tolerating. Replace magnesium. Diabetic dose of doses, versus also component of starvation ketosis given poor oral intake recently. Possible Seroquel induced diabetic acidosis. P.o. intake is tolerating. Add Ensure. Status: Acute (3) Acute kidney injury: Resolving. Possibly also contributing to metabolic acidosis. Gradual improvement. Producing urine. Gentle IV hydration. Change fluid to LR. Hold DARRIUS inhibitor. Monitor I&O. list does show diuretics and an DARRIUS inhibitor. Unknown if using any NSAIDs. Initial CK level was normal. Status: Acute (4) Lactic acidosis: Resolved. Severe lactic acidosis, lactate as high as 9.4 on presentation. BMP is being rechecked. Recheck lactic acid. Follow-up bicarb, anion gap. Continue supportive care, IV hydration. Continue to hold Metformin. Clear liquid p.o. intake as tolerating. Continue treatment of UTI. Discussed with her , discussed possibility of Metformin induced lactic acidosis, although her condition, severe lactic acidosis may resolved. He reports that she used to drink alcohol, but as of about 2 months ago has not been drinking any. However, has not been eating recently. He is not aware of diagnosis of cirrhosis, however, some chronic liver disease could contribute also to lactic acidosis and ketoacidosis especially in setting of poor oral intake as has been in her case. Status: Acute (5) Intertrochanteric fracture of left hip: Pending hip fracture repair, tentatively tomorrow. Given she has responded well to PRBC transfusion, continues on PPI, consider trial of low-dose heparin VTE prophylaxis. After a fall at home. Discussed with Ortho, with her , hip fracture repair after severe metabolic abnormalities, overall condition improves. Status: Acute Qualifiers: Encounter type: initial encounter Fracture alignment: displaced Fracture type: closed Qualified Code(s): S72.142A - Displaced intertrochanteric fracture of left femur, initial encounter for closed fracture (6) High anion gap metabolic acidosis: HAGMA multifactorial secondary to lactic acidosis, alcoholic ketoacidosis, possible normoglycemic ketoacidosis, with poor oral intake, acute kidney injury. Did not appear to be uremic. ESTHER now improving. Lactic acidosis resolved. No rhabdomyolysis. Salicylates were negative. Denies drinking any antifreeze, washer fluid, isopropyl or any other alcohol. States on and off drinks some clamato beer drink. Status: Acute (7) Macrocytic anemia: Responded well to PRBC transfusion. Hemoglobin up to 9.1. Hemoccult is positive. Increased PPI to twice daily. Continue for 6 weeks. Once she is doing better at some point would benefit from endoscopic evaluation. MAMTA and macrocytic anemia Iron replacement. Not deficient in B12, folic acid. Check MMA. Consider peripheral smear. Also prior alcoholism, although reported no alcoholic drinks in the last [address] months. Spleen normal on CT. 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 Possibly secondary to acute condition. Would follow-up with recheck thyroid function after she recovers. CT head unremarkable. In case of persistent findings, consider additional imaging with MRI. Status: Acute (10) Type 2 diabetes mellitus: On Ozempic and Metformin. Outside records indicate diabetic neuropathy. Is on gabapentin chronically. Status: Chronic Qualifiers: Diabetes mellitus complication detail: with unspecified neuropathy Diabetes mellitus complication status: with neurologic complications Diabetes mellitus keno terminal operator insulin use: without keno terminal operator use Qualified Code(s): E11.40 - Type 2 diabetes mellitus with diabetic neuropathy, unspecified (11) History of alcohol dependence: No alcoholic drinks and last 2 months as per . She does not have liver cirrhosis far as he knows. She reports occaional beer drink. Suspected history of heavy consumption in the past. Status: Chronic (12) Hyperlipidemia: Chronically on statin therapy. CK normal. Lipid panel from the end of October did not show significant elevations in any values. Status: Chronic Qualifiers: Hyperlipidemia type: unspecified Qualified Code(s): E78.5 - Hy perlipidemia, unspecified (13) Hypertension: Chronically on DARRIUS inhibitor and diuretic therapy Status: Chronic Qualifiers: Hypertension type: primary hypertension Qualified Code(s): I10 - Essential (primary) hypertension (14) Moderate protein-calorie malnutrition: Secondary to poor oral intake and impact potentially of previous alcohol use P.o. intake is tolerating. Ensure clear with meals. Status: Acute (15) Anxiety disorder: Chronically on clonazepam. Resume. Status: Chronic (16) Major depressive disorder: Chronically on venlafaxine, Seroquel and mirtazapine was added in October or November Continue venlafaxine. Status: Chronic (17) UTI (urinary tract infection): Enterobacter sensitive to Zosyn, ceftriaxone. Switch to ceftriaxone Status: Acute Additional A&P Information Reported sarcoidosis Home medication use of albuterol and a record indicating availability of home oxygen for reasons that are unknown to me. Patient denies history of Covid but not a reliable historian. There are indications in the record that she has previously smoked with prescriptions of Chantix in the past so could be COPD without a formal diagnosis. Attestations Medical Necessity Statement*: Continue admission for assessment management of metabolic abnormalities, metabolic acidosis, acute encephalopathy, hip fracture with acute anemia, positive Hemoccult. Transition from insulin drip to subcutaneous insulin. Critical Care Time: The high probability of a clinically significant, sudden or life threatening deterioration of the patient's endocrine system(s) DKA, metabolic acidosis, transition from insulin drip to subcutaneous insulin, hypoglycemia, required my full and direct attention, intervention and personal management. The critical care time is as shown. This time is in addition to time spent performing any reported procedures but includes the following: x Data and vital sign review and interpretation x Patient assessment, examination and intervention x Documentation x Medication orders and management Critical Care Time (min): 38 Coding Level of Care Code Acute Test Clerk for g Fwd Exam Comprehensive Diagnoses Acute encephalopathy G93.40 Ketoacidosis E87.2 Acute kidney injury N17.9 Lactic acidosis E87.2 Intertrochanteric fracture of left hip S72.142A Encounter type: initial encounter Fracture alignment: displaced Fracture type: closed High anion gap metabolic acidosis E87.2 Macrocytic anemia D53.9 Fall at home W19.XXXA; Y92.009 Encounter type: initial encounter Thyroid disorder E07.9 Type 2 diabetes mellitus E11.40 Diabetes mellitus complication detail: with unspecified neuropathy Diabetes mellitus complication status: with neurologic complications Diabetes mellitus keno terminal operator insulin use: without keno terminal operator use History of alcohol dependence F10.21 Hyperlipidemia E78.5 Hyperlipidemia type: unspecified Hypertension I10 Hypertension type: primary hypertension Moderate protein-calorie malnutrition E44.0 Anxiety disorder F41.9 Major depressive disorder F32.9 UTI (urinary tract infection) N39.0
--- NOTE | 2021-01-21 13:54 | PC.OT ---
Due to patient current functional limitation, ie bedrest, and surgery planned 01/22, skilled ot held evaluation until post surgery for left hip fracture.
[2021-01-21] MEDS: cefTRIAXone 1,000 MG in sodium chloride 0.9% (plus) 50 ML 100 MG IV (15:47)
[2021-01-21 17:04] LABS: Glucose Point of Care 78 mg/dL (70-110)
[2021-01-21] MEDS: insulin glargine 100 units/1 mL 10 UNIT SUBCUT ×2 (17:04→22:01)
[2021-01-21 17:06] LABS: Glucose Point of Care 173 mg/dL (70-110)
[2021-01-21] MEDS: insulin lispro 100 unit/1 mL SUBCUT ×2 (17:06→22:00)
--- NOTE | 2021-01-21 17:21 | PC.NURSE ---
Shift Note Frequent safety and comfort rounds continue. Orders and nursing care completed as indicated. Patient discontinued off insulin drip, see labs an physician's note. Patient had 5 liquids bowel movements today. Family visited patient today and updated on plan of care. This nurse attempted to call this evening to obtain consent form for procedure tomorrow but no answer at this time- will attempt again later this evening. Pt A&O with bit of confusion. Mrs. Mckinley noted to be eating more today, see I&Os. Patient monitored for response to intervention and treatments. Education provided includes new medications, position changes, and importances of checking blood glucoses. Patient and verbalized understanding. Will continue to monitor.
--- NOTE | 2021-01-21 19:52 | P.CONIM_ITS ---
Providers/Reason For Consult Consulting Physician/Specialty*: Gilberto Farfan MD; orthopedic surgery Reason for Consult*: Left intratrochanteric hip fracture Attending Physician: Antonio Morocho Primary Care Provider: Geeta AndersP-C History of Present Illness History of Present Illness Almita Mckinley is a 65 year old female who was admitted to the hospital on 01/18/2021 from the emergency room. She claimed to be unable to walk after a fall that occurred a few days before. She is quite confused now as she was in the emergency room and is difficult to get specific information. She was admitted to the intensive care unit with ketoacidosis, acute renal failure, and encephalopathy, and anemia. Resident has been working with her to stabilize her prior to addressing her left hip. Meds/Allergies Home Medications and Allergies Home Medications Medication Instructions Recorded Confirmed Last Taken Type biotin 10,000 mcg capsule 10,000 mcg PO DAILY 04/03/20 01/18/21 01/17/21 History calcium citrate 315 mg-vitamin D3 1 tab PO DAILY 04/03/20 01/18/21 01/17/21 History 5 mcg (200 unit) tablet clonazepam 1 mg tablet 1 mg PO BID PRN 04/03/20 01/18/21 01/17/21 History coenzyme Q10 10 mg capsule 10 mg PO TID 04/03/20 01/18/21 01/17/21 History fluticasone propionate 50 1 spray INTRANASAL DAILY 04/03/20 01/18/21 Unknown History mcg/actuation nasal spray,suspension furosemide 20 mg tablet 20 mg PO DAILY 04/03/20 01/18/21 01/17/21 History gabapentin 600 mg tablet 600 mg PO TID 04/03/20 01/18/21 01/17/21 History melatonin 10 mg capsule 10 mg PO BEDTIME 04/03/20 01/18/21 01/17/21 History metformin 500 mg tablet 1,000 mg PO BID 04/03/20 01/18/21 01/17/21 History multivitamin,pn-lctq-glwanewm 1 tab PO DAILY 04/03/20 01/18/21 01/17/21 History pantoprazole 40 mg tablet,delayed 40 mg PO DAILY 04/03/20 01/18/21 01/17/21 History release potassium chloride 20 mEq oral 20 meq PO DAILY 04/03/20 01/18/21 01/17/21 History packet simvastatin 40 mg tablet 40 mg PO DAILY 04/03/20 01/18/21 01/17/21 History venlafaxine 150 mg 150 mg PO DAILY 04/03/20 01/18/21 01/17/21 History capsule,extended release 24 hr albuterol sulfate 2 puff INHALATION QID PRN 01/18/21 01/18/21 Unknown History lisinopril 10 mg PO DAILY 01/18/21 01/18/21 01/17/21 History meclizine 25 mg PO TID PRN 01/18/21 01/18/21 Unknown History mirtazapine 15 mg PO BEDTIME 01/18/21 01/18/21 01/17/21 History quetiapine [Seroquel] 25 mg PO BEDTIME 01/18/21 01/18/21 01/17/21 History semaglutide [Ozempic] 0.25 mg SUBCUT Q7D 01/18/21 01/18/21 Unknown History venlafaxine 75 mg PO DAILY 01/18/21 01/18/21 01/17/21 History Allergies Allergy/AdvReac Type Severity Reaction Status Date / Time No Known Allergies Allergy Verified 12/25/20 11:48 Current Medications Current Medications Generic Name Dose Route Start Last Admin Trade Name Freq PRN Reason Stop Dose Admin Clonazepam 0.5 mg 01/19/21 05:46 01/20/21 20:38 Clonazepam 1 Mg Tablet PO 0.5 mg BID PRN Administration Anxiety Ferrous Sulfate 325 mg 01/20/21 08:00 01/21/21 08:19 Ferrous Sulfate Ec 325 Mg Tablet PO 325 mg BREAKFAST MACK Administration Gabapentin 100 mg 01/19/21 09:00 01/21/21 15:47 Gabapentin 100 Mg Capsule PO 100 mg TID MACK Administration Piperacillin Sod/Tazobactam 50 mls @ 12.5 mls/hr 01/19/21 06:00 01/21/21 16:29 Sod 3.375 gm/ Sodium Chloride IV 12.5 mls/hr Q8H MACK Administration Protocol Lactated Ringer's 1,000 mls @ 30 mls/hr 01/21/21 08:15 01/21/21 09:15 Lactated Ringers IV 30 mls/hr .Q24H MACK Administration Ceftriaxone Sodium 1,000 mg/ 50 mls @ 100 mls/hr 01/21/21 14:00 01/21/21 16:17 Sodium Chloride IV Infused Q24H MACK Infusion Protocol Insulin Glargine 10 unit 01/21/21 18:00 01/21/21 17:04 Insulin Glargine 100 Units/1 Ml SUBCUT 10 unit DAILY MACK Administration Insulin Human Lispro 0 unit 01/19/21 21:00 01/20/21 21:47 Insulin Lispro 100 Unit/1 Ml SUBCUT Not Given BEDTIME MACK Protocol Insulin Human Lispro 0 unit 01/19/21 08:00 01/21/21 17:06 Insulin Lispro 100 Unit/1 Ml SUBCUT 2 unit TIDWM MACK Administration Protocol Morphine Sulfate 2 mg 01/19/21 05:46 01/20/21 20:36 Morphine 4 Mg/Ml Sdv 1 Ml IVP 2 mg Q4H PRN Administration SEVERE PAIN Pantoprazole Sodium 40 mg 01/20/21 21:00 01/21/21 08:20 Pantoprazole 40 Mg Sdv IVP 40 mg Q12H MACK Administration Venlafaxine HCl 75 mg 01/19/21 09:00 01/21/21 08:19 Venlafaxine Er (24hr) 75 Mg Capsule PO 75 mg DAILY MACK Administration PFSH Acute PFSH: Medical History (Updated 01/20/21 @ 09:55 by Antonio Morocho MD) Anxiety disorder GERD (gastroesophageal reflux disease) Hyperlipidemia Hypertension Hyperthyroidism Major depressive disorder Sarcoidosis diagnosis per available outside records, with patient stating onset in , details unknown, never put on specific treatment per report Type 2 diabetes mellitus Vulvar carcinoma Surgical History (Updated 01/18/21 @ 22:10 by Ana Tabor MD) History of carpal tunnel release History of gastric bypass Family History (Updated 01/18/21 @ 23:29 by Ana aTbor MD) Other Cancer Social History (Updated 01/18/21 @ 23:29 by Ana Tabor MD) Smoking and tobacco status: former smoker Alcohol intake: former Substance/Drug Use: never Number of children: 0 Vitals/I&O/Wt Last Vital Signs Temp 99 F 01/21/21 19:05 Pulse 113 H 01/21/21 19:05 Resp 18 01/21/21 19:05 BP 159/105 01/21/21 19:05 Pulse Ox 98 01/21/21 19:05 01/21/21 01/21/21 01/21/21 06:59 14:59 22:59 Intake Total 1114.166 / 5193.744 2426.060 / 2426.060 1538.5 / 3964.560 Output Total 1850 / 5200 1950 / 1950 1000 / 2950 Balance -735.834 / -6.256 476.060 / 476.060 538.5 / 1014.560 Weight last 48 hrs Weight 129 lb 9.6 oz Weight 137 lb Physical Exam Narrative: EXAM NARRATIVE: The patient talks but does not really appear to be oriented to place or time. She is unable to give any specific recollection of events leading to her hospitalization and is confused about her current con dition here in the ICU. She has shortening and external rotation of the left hip with exquisite pain with left hip motion Palpable left dorsalis pedis pulse. Flexes and extends left toes and ankle without any motor deficit Urinary Catheter Management^: Voss: Cath Placed During This Visit: yes Reason for Continuing Indwelling Catheter: Accurate Measurement of Urinary Output in Critically Ill Patients Urinary Catheter Date of Insertion: 01/18/21 Urinary Catheter Time of Insertion: 19:15 Data Micro: Micro: Microbiology 01/18/21 19:34 Urine Culture - Fi nal Urine,Clean Catch Enterobacter ae rogenes Imaging^: Xray Ortho: My impression: Radiographs of the left hip are interpreted from the day of admission 01/18/2021. The patient has a displaced left femoral neck fracture. A&P Assessment and plan (1) Intertrochanteric fracture of left hip: Almita has multiple medical comorbidities requiring intensive care unit optimization. As for her left intertrochanteric hip fracture the fracture is unstable and displaced and would benefit from surgical stabilization. I told her without surgery she would require prolonged periods of bedrest and be at risk for skin breakdown pneumonia and continued pain. I discussed surgical intervention with the patient. I told them with open reduction internal fixation they should be able to be mobilized and resume ambulatory status. We can eliminate the problems associated with prolonged bed rest and would have better control of pain. Certainly there would be inherent risk with surgery. These would would include the risk of cardiac complications, stroke, infection, and even . I discussed risk of any orthopedic implant including nonunion, malunion, a component failure. I discussed the possible need for component removal. I discussed risk of deep venous thromboses and pulmonary emboli that are present with any treatment and the importance of DVT prophylaxis. The seem to express good understanding of alternative treatments, seem to comprehend, and agrees to surgical intervention. I will discuss the patient's surgical candidacy with the medicine service in the morning. Status: Acute Qualifiers: Encounter type: initial encounter Fracture type: closed Fracture alignment: displaced Qualified Code(s): S72.142A - Displaced intertrochanteric fracture of left femur, initial encounter for closed fracture Coding Level of Care Code Acute Nonprofit Financial Controller for [facility] Diagnoses Intertrochanteric fracture of left hip S72.142A Encounter type: initial encounter Fracture type: closed Fracture alignment: displaced
[2021-01-21 21:15] LABS: Glucose Point of Care 151 mg/dL (70-110)
[2021-01-22] VITALS (29 sets, daily range): BP systolic 120–159; BP diastolic 78–98; PULSE 94–120; RESP 5–22; TEMP 36.4–37.3; O2SAT 78–100; BMI 23.7
--- NOTE | 2021-01-22 | SCC_ITS ---
Procedure Done: Open reduction and internal fixation left open reduction and internal fixation left hip with intramedullary device 55 seconds of fluoroscopic guidance, for a cumulative dose of 6.61 mGy, was provided to Dr. Farfan by the radiology department. C-arm images of the LEFT hip were saved for the patient's permanent record. [facility]
[2021-01-22] MEDS: morphine 4 mg/mL SDV 1 mL 2 MG IVP ×2 (02:08→23:18)
[2021-01-22 03:19] LABS: Basophils % 0.1 %; Eosinophils % 0.1 %; Hematocrit 23.3 % (37.0-47.0); Lymphocytes # 1.2 10^3/uL (0.8-4.8); Lymphocytes % 16.2 %; Mean Corpuscular HGB Conc 34.3 g/dL (30.0-36.0); Mean Corpuscular Hemoglobin 33.3 pg (28.0-34.0); Mean Corpuscular Volume 97.1 fl (81-99); Mean Platelet Volume 9.6 fL (7.4-10.4); Monocytes # 0.5 10^3/uL (0.2-0.9); Monocytes % 7.2 %; Neutrophils # 5.29 10^3/uL (1.8-7.7); Neutrophils % 74.6 %; Nucleated Red Blood Cells % 0 %; Platelet Count 198 10^3/cmm (130-400); Red Cell Distribution Width 15.6 % (12.1-15.1); White Blood Count 7.1 10^3/uL (4.0-10.0)
[2021-01-22 03:42] LABS: Alanine Aminotransferase 15 U/L (0-33); Albumin Level 2.1 g/dL (3.5-5.2); Alkaline Phosphatase 80 IU/L (35-105); Anion Gap 17.9 (5-19); Aspartate Amino Transferase 20 U/L (0-32); Blood Urea Nitrogen 6 mg/dL (8-23); Calcium 7.2 mg/dL (8.5-10.5); Carbon Dioxide 19 mmol/L (22-29); Chloride 98 mmol/L (98-107); Globulin 2.5 g/dL (1.3-4.6); Glomerular Filtration Rate 100.3 mL/min (90-130); Glucose 108 mg/dL (65-115); Magnesium 1.4 mg/dL (1.7-2.3); Osmolality Calculated 272 mOsm/kg (285-295); Sodium 132 mmol/L (136-145); Total Bilirubin 0.5 mg/dL (0.15-1.2); Total Protein 4.6 g/dL (6.6-8.7)
[2021-01-22 03:53] LABS: Potassium 2.9 mmol/L (3.5-5.1)
[2021-01-22 05:04] LABS: Phosphorus 1.9 mg/dL (2.5-4.5)
[2021-01-22] MEDS: piperacillin-tazobactam 3.375 GM in sodium chloride 0.9% (plus) 50 ML IV ×3 (05:38→21:10)
[2021-01-22] MEDS: vancomycin 1,250 MG/250 ML PIGGYBACK 250 MG IV (05:39)
[2021-01-22 07:38] LABS: Glucose Point of Care 120 mg/dL (70-110)
[2021-01-22] MEDS: pantoprazole 40 mg SDV IVP ×2 (07:52→20:31)
[2021-01-22] MEDS: gabapentin 100 mg Capsule PO ×3 (07:53→20:31)
[2021-01-22] MEDS: ferrous sulfate EC 325 mg Tablet PO ×2 (07:53→17:04)
[2021-01-22] MEDS: venlafaxine ER (24HR) 75 mg Capsule PO (07:53)
[2021-01-22] MEDS: lactated ringers 1,000 ML 30 ML IV (07:54)
[2021-01-22] MEDS: sucralfate 1 gm/10 mL Oral Liq UDC PO ×3 (10:13→20:31)
[2021-01-22] MEDS: sodium chlor 0.9% + KCl 40 mEq 40 MEQ/1,000 ML BAG 50 MEQ IV (10:13)
--- NOTE | 2021-01-22 10:27 | PC.CHAP ---
Pastoral Care Encounter/Spiritual Assessment Type of Contact [] Declined cyber security architect visit [] Patient/Family/Request visit [] Outpatient visit [] Follow-up visit [] Physician referral [] Code/Alert [x] Routine visit [] Staff referral [] Actively dying [] Patient sleeping [] Family support [] [] Out of room [] Palliative care [] [] Receiving care in room [] Pre-surgical visit [] Trauma [] Long length of stay [x] ICU visit [] Other: Relational/Emotional Strength [] Patient feels connected with others/family/visitors/staff [] Distress [] Loneliness/isolation [] Abandonment Spirituality of Patient [] Person of [place] [] Attends Oriental Orthodox of their [place] [] Believes in Prayer [] Reads Bible or Church materials [] There are Spiritual issues to be addressed Under Baster Interventions [x] Prayer [x] Active listening [x] Non-anxious presence [x] Spiritual/emotional support [] Crisis/trauma care [] Spiritual counseling [] Bereavement support [] Provided bereavement packet [] Provided Bible/devotional materials [] Provided toy/stuffed animal, coloring book to patient or family member [] Provided Communion [] Anointing/[place] [] Salvation [x] Completed spiritual assessment [] Other: Impact on Illness or Injury [] Angry [] Fearful [x] Anxious [] Often cries [] Exhaustion [] Unable to work [] Unable to attend scientologist [] Unable to walk/stand [] Unable to read [] Unable to drive [] Unable to eat/drink [] Unable to sleep [] Unable to be with family [] Patient intubated [] Other: Summary looking at hip replacement... prayed for healing and strength Time spent with patient 10 min
[2021-01-22 11:44] LABS: Glucose Point of Care 114 mg/dL (70-110)
--- NOTE | 2021-01-22 14:15 | P.PN_ITS ---
Subjective Subjective: Interval history: Hospital course, labs appreciated. Examination patient lying comfortably in bed. Awake alert to self, place, reason for being in the hospital. She states she is to continue alcohol before but has not been observed for over a month. States she is been having recurrent falls. Has remained hemodynamically stable and afebrile. Plan for OR today with orthopedics. Vitals/I&O/Wt Last Vital Signs Temp 97.8 F 01/22/21 08:00 Pulse 100 01/22/21 12:00 Resp 18 01/22/21 12:00 BP 139/88 01/22/21 12:00 Pulse Ox 99 01/22/21 11:00 01/21/21 01/22/21 01/22/21 22:59 06:59 14:59 Intake Total 1868.5 / 4294.560 416 / 4710.560 1624.0 / 1624.0 Output Total 1000 / 2950 1850 / 4800 Balance 868.5 / 1344.560 -1434 / -89.440 1624.0 / 1624.0 Weight last 48 hrs Weight 60.81 kg Weight 58.786 kg Physical Exam Const: COMMON NORMALS: no acute distress GENERAL APPEARANCE: cooperative and comfortable ORIENTATION/CONSCIOUSNESS: Yes awake and Yes confused (Less than yesterday, but still confused) HENMT: COMMON NORMALS: oropharynx normal Neck/C-Spine: COMMON NORMALS: no JVD Resp: COMMON NORMALS: normal respiratory effort and clear to auscultation bilaterally AUSCULTATION: clear to auscultation bilaterally OTHER: Generally weak. Cardio: COMMON NORMALS: no JVD, regular rhythm, S1 normal heart sound present, S2 normal heart sound present and No murmurs present (Cardio) RHYTHM: regular rhythm HEART SOUNDS: S1 normal heart sound present and S2 normal heart sound present GI: COMMON NORMALS: Normal to inspection, nondistended, normoactive bowel sounds present, Soft to palpation and non-tender PALPATION: Yes Soft to palpation Extremity: COMMON NORMALS: no joint enlargement and no pedal edema Neuro: COMMON NORMALS: moves all extremities Skin: COMMON NORMALS: no rashes or lesions noted GENERAL SKIN EXAM: no rashes or lesions noted Urinary Catheter Management^: Voss: Cath Placed During This Visit: yes Reason for Continuing Indwelling Catheter: Accurate Measurement of Urinary Ou tput in Critically Ill Patients Urinary Catheter Date of Insertion: 01/18/21 Urinary Catheter Time of Insertion: 19:15 Data : 01/22/21 03:00 01/22/21 03:00 Micro: Microbiology 01/18/21 19:34 Urine Culture - Final Urine,Clean Catch Enterobacter aerogenes A&P Assessment and plan (1) Acute encephalopathy: Metabolic encephalopathy: Multifactorial. Most likely combination findings of metabolic acidosis, UTI, acute kidney injury. Resolving. Status: Acute (2) Ketoacidosis: Most likely a combination of starvation ketosis along with semaglutide induced diabetic ketosis. Anion gap stable. Continue with subcu insulin. N.p.o. for possible OR today. Advance diet to carb consistent diet once cleared from orthopedics. Continue with IV fluids with normal saline at 50 cc/h Status: Acute (3) Acute kidney injury: Resolved. IV fluid as above. Medical reconciliation done for nephrotoxic drugs. Continue to monitor BMP daily. Status: Acute (4) Lactic acidosis: Resolved. Most likely a combination of starvation ketosis along with p ossibility of Metformin induced lactic acidosis in setting of baseline possible chronic liver disease. Less likely secondary to UTI. Resolved. Status: Acute (5) Intertrochanteric fracture of left hip: Appreciate orthopedics recommendations. Plan for the OR today. Physical therapy, anticoagulation, diet advancement as per surgical team. Status: Acute Qualifiers: Encounter type: initial encounter Fracture alignment: displaced Fr acture type: closed Qualified Code(s): S72.142A - Displaced intertrochanteric fracture of left femur, initial encounter for closed fracture (6) High anion gap metabolic acidosis: As above. Status: Acute (7) Macrocytic anemia: Postponement of blood transfusion. Hemoglobin stable. Appreciate vitamin B12, folate levels. Homocystine level pending. Protonix twice daily. Oral iron supplementation. Add Carafate before meals and at bedtime. Patient would most likely need EGD and colonoscopy as an outpatient. Status: Acute (8) Fall at home: Several days ago Status: Acute Qualifiers: Encounter type: initial encounter Qualified Code(s): W19.XXXA - Unspecified fall, initial encounter; Y92.009 - Unspecified place in unspecified non-institutional (private) residence as the place of occurrence of the external cause (9) Thyroid disorder: T4, TSH elevated. Will get thyroid ultrasound. Check thyroglobulin, antithyroid antibodies. Status: Acute (10) Type 2 diabetes mellitus: Insulin sliding scale. 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 She does not have liver cirrhosis far as he knows. She reports occaional beer drink. Suspected history of heavy consumption in the past. Status: Chronic (12) Hyperlipidemia: Chronically on statin therapy. CK normal. Lipid panel from the end of October did not show significant elevations in any values. Status: Chronic Qualifiers: Hyperlipidemia type: unspecified Qualified Code(s): E78.5 - Hyperlipidemia, unspecified (13) Hypertension: Goal blood pressure less than 140/91 Hg. We will uptitrate medication as per blood pressure monitoring. Status: Chronic Qualifiers: Hypertension type: primary hypertension Qualified Code(s): I10 - Essential (primary) hypertension (14) Moderate protein-calorie malnutrition: Secondary to poor oral intake and impact potentially of previous alcohol use P.o. intake is tolerating. Ensure clear with meals. Status: Acute (15) Anxiety disorder: Chronically on clonazepam. Resume. Status: Chronic (16) Major depressive disorder: Chronically on venlafaxine, Seroquel and mirtazapine was added in October or November Continue venlafaxine. Status: Chronic (17) UTI (urinary tract infection): Urine culture consistent with Enterobacter. Sensitivities appreciated. Stop vancomycin, ceftriaxone.-Patient is perioperative for now continue with Zosyn. Will de-escalate to ceftriaxone postoperatively. Status: Acute Additional A&P Information Reported sarcoidosis Full code. NPO. Heparin for DVT prophylaxis. Protonix for PUD prophylaxis. Attestations Medical Necessity Statement*: Requires further hospitalization for management of hip fracture, awaiting ORIF, high anion gap metabolic acidosis leading to acute metabolic encephalopathy in setting of starvation ketosis Time Spent in Patient Care: Greater than 35 minutes (>than 50% of time spent in counselling and/or direct pt care on unit) . 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 [facility] Filiberto Diagnoses Acute encephalopathy G93.40 Ketoacidosis E87.2 Acute kidney injury N17.9 Lactic acidosis E87.2 Intertrochanteric fracture of left hip S72.142A Encounter type: initial encounter Fracture alignment: displaced Fracture type: closed High anion gap metabolic acidosis E87.2 Macrocytic anemia D53.9 Fall at home W19.XXXA; Y92.009 Encounter type: initial encounter Thyroid disorder E07.9 Type 2 diabetes mellitus E11.40 Diabetes mellitus complication detail: with unspecified neuropathy Diabetes mellitus complication status: with neurologic complications Diabetes mellitus terminal gauger 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
--- NOTE | 2021-01-22 14:35 | US_ITS ---
WS: [id number] THYROID ULTRASOUND REASON FOR EXAM: hyperthyroididsm, possible goitre TECHNIQUE: Grayscale and Doppler ultrasound examination of the thyroid gland. FINDINGS: RIGHT: Right thyroid gland measures 3.8 cm x 1.4 cm x 0.9 cm. Right thyroid volume equals 2.4 ccm3. No focal lesion. Normal echogenicity. LEFT: Left thyroid gland measures 4.0 cm x 1.1 cm x 1.0 cm. Left thyroid volume equals 2.3 ccm3. No focal l esion. Normal echogenicity. Thyroid isthmus: 0.2 mm. No focal lesion. Normal echogenicity. Small anterior cervical lymph nodes maximum dimensions of the largest lymph node 8 x 4 mm. Hilar fat present in the lymph nodes imaged. US/US thyroid [id number] IMPRESSION: Normal thyroid gland. Nonspecific anterior cervical lymph nodes.
[2021-01-22 16:48] LABS: Glucose Point of Care 88 mg/dL (70-110)
--- NOTE | 2021-01-22 17:12 | PC.SOCIAL ---
IMM UPDATED IMM dated and initialed and copy given to patient
--- NOTE | 2021-01-22 18:11 | PC.NURSE ---
Shift Note Frequent safety and comfort rounds continue. Orders and nursing care completed as indicated. Patient scheduled for hip surgery today. Patient remains A&Ox4 with bits of confusion- asking for a cigarette and denies she is in the hospital. Patient had 1200ml out in urine today and has yet to have a bowel movement, still awaiting a sample. Patient turned Q2HR with assistance of other ICU staff. Patient sacrum noted to be red due to frequent diarrhea yesterday. Patient monitored for response to intervention and treatments. Education provided includes new medications, frequent position changes, and upcoming surgery. Patient and verbalized understanding. Will continue to monitor.
--- NOTE | 2021-01-22 18:39 | ANES.PREANE2 ---
Pre-Anesthetic Assessment Pre-Anesthetic Assessment: Height/Weight: Height 1.6 m Weight 60.81 kg Temp Pulse Resp BP Pulse Ox 97.8 F 97 16 141/87 100 01/22/21 08:00 01/22/21 17:00 01/22/21 17:00 01/22/21 18:00 01/22/21 17:00 Preop Diagnosis: Left intertrochanteric hip fracture Proposed Procedure: Operation Date: 01/22/21 17:00 Proposed Procedures p Trochanteric Femoral Nail(Left) - Gilberto Farfan MD Was Beta Omar taken within 24 hours: N/A Was Clonidine taken within 24 hours: N/A Social: Social History: No alcohol and No tobacco Exam: Pre-Anes Outpt Exam: alert, clear to auscultation bilaterally and regular rate & rhythm Airway: Submandibular: WNL Cervical ROM: WNL MP: 2 Dentition: Chipped Additional comments: Missing some Pulmonary: Pulmonary: Asthma CV/HEM: CV/HEM: Anemia, CAD and HTN : : Chronic renal Insufficiency GI: GI: GERD Metabolic: Metabolic: DM, Hyperlipidemia and Thyroid Comments: DKA, acidosis Neuropsych: Neuropsych: Anxiety and Depression Comments: Acute encephalopathy Anesthetic Plan: ASA status: 4 Anesthesia: Regional (specify below) (SAB) Risk of > 500 ml blood loss (7ml/kg in children): No Meds/Allergies Current Medications: Current Medications Generic Name Dose Route Start Last Admin Trade Name Freq PRN Reason Stop Dose Admin Clonazepam 0.5 mg 01/19/21 05:46 01/20/21 20:38 Clonazepam 1 Mg Tablet PO 0.5 mg BID PRN Administration Anxiety Ferrous Sulfate 325 mg 01/22/21 18:00 01/22/21 17:04 Ferrous Sulfate Ec 325 Mg Tablet PO 325 mg BIDWM MACK Administration Gabapentin 100 mg 01/22/21 10:00 01/22/21 14:10 Gabapentin 100 M g Capsule PO 100 mg TID MACK Administration Piperacillin Sod/T azobactam 50 mls @ 12.5 mls /hr 01/19/21 06:00 01/22/21 18:10 Sod 3.375 gm/ So dium Chloride IV Infused Q8H MACK Infusion Protocol Potassium Chloride /Sodium Chloride 40 meq in 1,000 m ls @ 50 mls/hr 01/22/21 10:30 01/22/21 10:13 Sodium Chlor 0.9 % + Kcl 40 Meq IV 50 mls/hr .Q20H MACK Administration Insulin Glargine 10 unit 01/21/21 18:00 01/21/21 22:01 Insulin Glargine 100 Units/1 Ml SUBCUT 10 unit DAILY MACK Administration Insulin Human Lisp ro 0 unit 01/19/21 21:00 01/21/21 22:00 Insulin Lispro 1 00 Unit/1 Ml SUBCUT 1 unit BEDTIME MACK Administration Protocol Insulin Human Lisp ro 0 unit 01/19/21 08:00 01/22/21 16:47 Insulin Lispro 1 00 Unit/1 Ml SUBCUT Not Given TIDWM MACK Protocol Morphine Sulfate 2 mg 01/19/21 05:46 01/22/21 02:08 Morphine 4 Mg/Ml Sdv 1 Ml IVP 2 mg Q4H PRN Administration SEVERE PAIN Pantoprazole Sodiu m 40 mg 01/20/21 21:00 01/22/21 07:52 Pantoprazole 40 Mg Sdv IVP 40 mg Q12H MACK Administration Sucralfate 1 gm 01/22/21 11:00 01/22/21 17:04 Sucralfate 1 Gm/ 10 Ml Oral Liq Udc PO 1 gm AC&BEDTIME MACK Administration Venlafaxine HCl 75 mg 01/19/21 09:00 01/22/21 07:53 Venlafaxine Er ( 24hr) 75 Mg Capsul e PO 75 mg DAILY MACK Administration PFSH Anesthesia PFSH: Medical History (Updated 01/20/21 @ 09:55 by Antonio Morocho MD) Anxiety disorder GERD (gastroesophageal reflux disease) Hyperlipidemia Hypertension Hyperthyroidism Major depressive disorder Sarcoidosis diagnosis per available outside records, with patient stating onset in , details unknown, never put on specific treatment per report Type 2 diabetes mellitus Vulvar carcinoma Surgical History (Updated 01/18/21 @ 22:10 by Ana Tabor MD) History of carpal tunnel release History of gastric bypass Family History (Updated 01/18/21 @ 23:29 by Ana Tabor MD) Other Cancer Social History (Updated 01/18/21 @ 23:29 by Ana Tabor MD) Smoking and tobacco status: former smoker Alcohol intake: former Substance/Drug Use: never Number of children: 0 Data Anesthesia CBC & Chem 7: 12/13/21 03:00 01/22/21 03:00 Other Labs: Laboratory Results - last 48 hr 01/20/21 01/20/21 01/20/21 18:51 19:15 20:18 WBC RBC Hgb Hct MCV MCH MCHC RDW Plt Count MPV Neut % (Auto) Lymph % (Auto) Calloway % (Auto) Eos % (Auto) Baso % (Auto) Neut # (Auto) Lymph # (Auto) Calloway # (Auto) Eos # (Auto) Baso # (Auto) Nucleated RBC % (auto) Nucleated RBCs # Toxic Vacuolation Sodium 133 L Potassium 3.5 Chloride 97 L Carbon Dioxide 13 L Anion Gap 26.5 H BUN 17 Creatinine 1.3 H GFR Calculation 41.1 L Glucose 86 POC Glucose 91 93 Calculated Osmolality 277 L Calcium 6.9 L Phosphorus Magnesium Total Bilirubin AST ALT Alkaline Phosphatase Total Protein Albumin Globulin 01/20/21 01/20/21 01/20/21 21:32 22:20 23:24 WBC RBC Hgb Hct MCV MCH MCHC RDW Plt Count MPV Neut % (Auto) Lymph % (Auto) Calloway % (Auto) Eos % (Auto) Baso % (Auto) Neut # (Auto) Lymph # (Auto) Calloway # (Auto) Eos # (Auto) Baso # (Auto) Nucleated RBC % (auto) Nucleated RBCs # Toxic Vacuolation Sodium Potassium Chloride Carbon Dioxide Anion Gap BUN Creatinine GFR Calculation Glucose POC Glucose 113 H 87 113 H Calculated Osmolality Calcium Phosphorus Magnesium Total Bilirubin AST ALT Alkaline Phosphatase Total Protein Albumin Globulin 01/21/21 01/21/21 01/21/21 00:26 01:35 02:40 WBC RBC Hgb Hct MCV MCH MCHC RDW Plt Count MPV Neut % (Auto) Lymph % (Auto) Calloway % (Auto) Eos % (Auto) Baso % (Auto) Neut # (Auto) Lymph # (Auto) Calloway # (Auto) Eos # (Auto) Baso # (Auto) Nucleated RBC % (auto) Nucleated RBCs # Toxic Vacuolation Sodium Potassium Chloride Carbon Dioxide Anion Gap BUN Creatinine GFR Calculation Glucose POC Glucose 98 100 98 Calculated Osmolality Calcium Phosphorus Magnesium Total Bilirubin AST ALT Alkaline Phosphatase Total Protein Albumin Globulin 01/21/21 01/21/21 01/21/21 03:52 04:25 04:25 WBC 6.8 RBC 2.72 L Hgb 9.1 L Hct 27.0 L MCV 99.3 H D MCH 33.5 MCHC 33.7 D RDW 16.1 H Plt Count 149 MPV 10.0 Neut % (Auto) 68.3 Lymph % (Auto) 20.0 Calloway % (Auto) 10.1 Eos % (Auto) 0.3 Baso % (Auto) 0.1 Neut # (Auto) 4.65 Lymph # (Auto) 1.4 Calloway # (Auto) 0.7 Eos # (Auto) 0.0 Baso # (Auto) 0.0 Nucleated RBC % (auto) 0.3 Nucleated RBCs # 0.0 Toxic Vacuolation 1+ H Sodium 134 L Potassium 3.0 L Chloride 97 L Carbon Dioxide 14 L Anion Gap 26.0 H BUN 14 Creatinine 1.0 H GFR Calculation 55.6 L Glucose 114 POC Glucose 64 L Calculated Osmolality 279 L Calcium 7.1 L Phosphorus Magnesium 1.5 L Total Bilirubin 0.4 AST 25 ALT 16 Alkaline Phosphatase 76 Total Protein 4.5 L Albumin 2.1 L Globulin 2.4 01/21/21 01/21/21 01/21/21 04:36 06:01 06:59 WBC RBC Hgb Hct MCV MCH MCHC RDW Plt Count MPV Neut % (Auto) Lymph % (Auto) Calloway % (Auto) Eos % (Auto) Baso % (Auto) Neut # (Auto) Lymph # (Auto) Calloway # (Auto) Eos # (Auto) Baso # (Auto) Nucleated RBC % (auto) Nucleated RBCs # Toxic Vacuolation Sodium Potassium Chloride Carbon Dioxide Anion Gap BUN Creatinine GFR Calculation Glucose POC Glucose 109 186 H 183 H Calculated Osmolality Calcium Phosphorus Magnesium Total Bilirubin AST ALT Alkaline Phosphatase Total Protein Albumin Globulin 01/21/21 01/21/21 01/21/21 07:57 09:01 10:08 WBC RBC Hgb Hct MCV MCH MCHC RDW Plt Count MPV Neut % (Auto) Lymph % (Auto) Calloway % (Auto) Eos % (Auto) Baso % (Auto) Neut # (Auto) Lymph # (Auto) Calloway # (Auto) Eos # (Auto) Baso # (Auto) Nucleated RBC % (auto) Nucleated RBCs # Toxic Vacuolation Sodium Potassium Chloride Carbon Dioxide Anion Gap BUN Creatinine GFR Calculation Glucose POC Glucose 129 H 165 H 116 H Calculated Osmolality Calcium Phosphorus Magnesium Total Bilirubin AST ALT Alkaline Phosphatase Total Protein Albumin Globulin 01/21/21 01/21/21 01/21/21 11:56 12:34 17:02 WBC RBC Hgb Hct MCV MCH MCHC RDW Plt Count MPV Neut % (Auto) Lymph % (Auto) Calloway % (Auto) Eos % (Auto) Baso % (Auto) Neut # (Auto) Lymph # (Auto) Calloway # (Auto) Eos # (Auto) Baso # (Auto) Nucleated RBC % (auto) Nucleated RBCs # Toxic Vacuolation Sodium Potassium Chloride Carbon Dioxide Anion Gap BUN Creatinine GFR Calculation Glucose POC Glucose 72 78 173 H Calculated Osmolality Calcium Phosphorus Magnesium Total Bilirubin AST ALT Alkaline Phosphatase Total Protein Albumin Globulin 01/21/21 01/22/21 01/22/21 20:57 03:00 03:00 WBC 7.1 RBC 2.40 L Hgb 8.0 L Hct 23.3 L MCV 97.1 MCH 33.3 MCHC 34.3 RDW 15.6 H Plt Count 198 D MPV 9.6 Neut % (Auto) 74.6 Lymph % (Auto) 16.2 Calloway % (Auto) 7.2 Eos % (Auto) 0.1 Baso % (Auto) 0.1 Neut # (Auto) 5.29 Lymph # (Auto) 1.2 Calloway # (Auto) 0.5 Eos # (Auto) 0.0 Baso # (Auto) 0.0 Nucleated RBC % (auto) 0 Nucleated RBCs # 0.0 Toxic Vacuolation Sodium 132 L Potassium 2.9 L Chloride 98 Carbon Dioxide 19 L Anion Gap 17.9 BUN 6 L Creatinine 0.6 GFR Calculation 100.3 Glucose 108 POC Glucose 151 H Calculated Osmolality 272 L Calcium 7.2 L Phosphorus Magnesium 1.4 L Total Bilirubin 0.5 AST 20 ALT 15 Alkaline Phosphatase 80 Total Protein 4.6 L Albumin 2.1 L Globulin 2.5 01/22/21 01/22/21 01/22/21 03:00 07:32 11:30 WBC RBC Hgb Hct MCV MCH MCHC RDW Plt Count MPV Neut % (Auto) Lymph % (Auto) Calloway % (Auto) Eos % (Auto) Baso % (Auto) Neut # (Auto) Lymph # (Auto) Calloway # (Auto) Eos # (Auto) Baso # (Auto) Nucleated RBC % (auto) Nucleated RBCs # Toxic Vacuolation Sodium Potassium Chloride Carbon Dioxide Anion Gap BUN Creatinine GFR Calculation Glucose POC Glucose 120 H 114 H Calculated Osmolality Calcium Phosphorus 1.9 L Magnesium Total Bilirubin AST ALT Alkaline Phosphatase Total Protein Albumin Globulin 01/22/21 16:46 WBC RBC Hgb Hct MCV MCH MCHC RDW Plt Count MPV Neut % (Auto) Lymph % (Auto) Calloway % (Auto) Eos % (Auto) Baso % (Auto) Neut # (Auto) Lymph # (Auto) Calloway # (Auto) Eos # (Auto) Baso # (Auto) Nucleated RBC % (auto) Nucleated RBCs # Toxic Vacuolation Sodium Potassium Chloride Carbon Dioxide Anion Gap BUN Creatinine GFR Calculation Glucose POC Glucose 88 Calculated Osmolality Calcium Phosphorus Magnesium Total Bilirubin AST ALT Alkaline Phosphatase Total Protein Albumin Globulin Cardiac Studies: No Data to Display
--- NOTE | 2021-01-22 19:12 | XR_ITS ---
WS: [id number] XR hip LT 1V wo/w pel [id number] REASON FOR EXAM: LT HIP FX FINDINGS: Intramedullary alysa and femoral neck nail fixation of intertrochanteric fracture. Surgical appliances and bony fragments in proper position and alignment. XR/XR hip LT 1V wo/w pel [id number] IMPRESSION: Fixation of left hip intertrochanteric fracture.
--- NOTE | 2021-01-22 19:18 | PM.OP ---
Operative Report Date of procedure: January 22, 2021 Pre-op Diagnosis: Left intertrochanteric hip fracture Post-op diagnosis: same Post-op Findings: Same Procedure Done: Open reduction and internal fixation left open reduction and internal fixation left hip with intramedullary device Pathology: none sent Surgeon: Gilberto Farfan Anesthesia: General Estimated blood loss (mL): 40 Findings: The patient had a 3 part left intertrochanteric hip fracture Condition: stable Disposition: PACU Procedure: The patient was taken to the operating room. They were given 1 g of Ancef. They were positioned on the fracture table with the right lower extremity in gentle traction. A timeout was performed. A 2 cm long incision was made proximal to the greater trochanter scalpel blade. Dissection was carried down to tip the greater trochanter. A guidepin was passed manually from the tip of the trochanter down the shaft. The proximal reamer was utilized to open up the proximal canal. An 11 mm by 340 Марина gamma nail was passed down the canal without difficulty. Under visualization of fluoroscopy a guidepin was driven up into the head and neck at 125? angle. It was measured at 85 mm in length and a lag screw similar length was then placed and locked into place with the proximal locking screw. Intraoperative imaging was obtained verifying satisfactory position of the hardware and reduction of the fracture. Deep tissues were closed with 0 Vicryl as were subcutaneous tissues. The skin was closed with a running 4-0 Monocryl suture.. Sterile dressings were applied. The patient was extubated and taken to recovery room in stable condition.
[2021-01-22 20:23] LABS: Glucose Point of Care 63 mg/dL (70-110)
[2021-01-22] MEDS: quetiapine 25 mg Tablet PO (20:31)
[2021-01-22 21:11] LABS: Anion Gap 21.5 (5-19); Blood Urea Nitrogen 6 mg/dL (8-23); Calcium 7.2 mg/dL (8.5-10.5); Carbon Dioxide 17 mmol/L (22-29); Chloride 101 mmol/L (98-107); Glomerular Filtration Rate 123.8 mL/min (90-130); Glucose 96 mg/dL (65-115); Magnesium 1.9 mg/dL (1.7-2.3); Osmolality Calculated 279 mOsm/kg (285-295); Potassium 3.5 mmol/L (3.5-5.1); Sodium 136 mmol/L (136-145)
[2021-01-22 21:16] LABS: Phosphorus 2.6 mg/dL (2.5-4.5)
[2021-01-22 21:20] LABS: Glucose Point of Care 122 mg/dL (70-110)
[2021-01-23] VITALS (27 sets, daily range): BP systolic 88–222; BP diastolic 60–96; PULSE 80–128; RESP 9–20; TEMP 36.4–37.1; O2SAT 81–100; BMI 21.8
[2021-01-23] MEDS: ALPRAZolam 0.5 mg Tablet PO (00:09)
[2021-01-23 05:09] LABS: Basophils % 0.3 %; Hemoglobin 7.6 g/dL (11.5-15.3); Lymphocytes # 1.4 10^3/uL (0.8-4.8); Lymphocytes % 17.8 %; Mean Corpuscular Hemoglobin 33.2 pg (28.0-34.0); Mean Corpuscular Volume 100.4 fl (81-99); Mean Platelet Volume 9.5 fL (7.4-10.4); Monocytes # 0.9 10^3/uL (0.2-0.9); Monocytes % 12.2 %; Neutrophils # 5.08 10^3/uL (1.8-7.7); Neutrophils % 66.2 %; Nucleated Red Blood Cells % 0 %; Platelet Count 222 10^3/cmm (130-400); Red Blood Count 2.29 10^6/uL (4.1-5.3); Red Cell Distribution Width 15.6 % (12.1-15.1); White Blood Count 7.7 10^3/uL (4.0-10.0)
[2021-01-23 05:38] LABS: Alanine Aminotransferase 19 U/L (0-33); Albumin Level 2.3 g/dL (3.5-5.2); Alkaline Phosphatase 81 IU/L (35-105); Anion Gap 21.3 (5-19); Aspartate Amino Transferase 28 U/L (0-32); Blood Urea Nitrogen 7 mg/dL (8-23); Calcium 6.9 mg/dL (8.5-10.5); Carbon Dioxide 17 mmol/L (22-29); Chloride 101 mmol/L (98-107); Globulin 1.7 g/dL (1.3-4.6); Glomerular Filtration Rate 160.2 mL/min (90-130); Glucose 114 mg/dL (65-115); Osmolality Calculated 281 mOsm/kg (285-295); Potassium 3.3 mmol/L (3.5-5.1); Sodium 136 mmol/L (136-145); Total Bilirubin 0.4 mg/dL (0.15-1.2)
[2021-01-23 05:44] LABS: Magnesium 1.7 mg/dL (1.7-2.3); Phosphorus 2.3 mg/dL (2.5-4.5)
[2021-01-23] MEDS: enoxaparin 40 mg/0.4 mL Syringe SUBCUT (06:39)
[2021-01-23] MEDS: sucralfate 1 gm/10 mL Oral Liq UDC PO ×4 (06:39→21:13)
[2021-01-23] MEDS: piperacillin-tazobactam 3.375 GM in sodium chloride 0.9% (plus) 50 ML IV (06:39)
--- NOTE | 2021-01-23 06:51 | PC.NURSE ---
Shift Note Frequent safety and comfort rounds continue. Orders and/or nursing care completed as indicated. Patient monitored for response to intervention and treatment(s). Education provided includes medication and incision care. Patient needs further reinforcement teaching. Patient remains confused at this time, and needs frequent reorientation to place. No wounds or skin issues noted except surgical incisions on left hip. Right AC IV is saline locked at this time and left AC IV infusing Zosyn per protocol. Voss catheter drained 250 mls of pale yellow urine overnight. Will continue to monitor.
[2021-01-23 07:01] LABS: Glucose Point of Care 130 mg/dL (70-110)
[2021-01-23] MEDS: pantoprazole 40 mg SDV IVP ×2 (07:55→21:13)
[2021-01-23] MEDS: venlafaxine ER (24HR) 75 mg Capsule PO (07:55)
[2021-01-23] MEDS: ferrous sulfate EC 325 mg Tablet PO ×2 (07:55→17:39)
[2021-01-23] MEDS: gabapentin 100 mg Capsule PO (07:55)
[2021-01-23] MEDS: insulin glargine 100 units/1 mL 10 UNIT SUBCUT (07:58)
--- NOTE | 2021-01-23 08:11 | ANE.PACU2 ---
Inpatient post-anesthesia follow up: Airway intact: Yes Vital signs: Temperature 97.5 F Pulse Rate 121 Respiratory Rate 17 Blood Pressure 135/90 Pulse Oximetry 97 Oxygen Delivery Me thod [ Room Air Current Rate & Del diogenes] Oxygen Delivery Me thod Room Air Oxygen Flow Rate Fraction of Inspir ed Oxygen Hydration adequate: Yes Nausea and vomiting: No Pain level: 2 Mental status: Baseline (Still very confused)
[2021-01-23] MEDS: potassium chloride ER 20 mEq Tablet 40 MEQ PO (09:59)
[2021-01-23] MEDS: gabapentin 100 mg Capsule 200 MG PO ×3 (09:59→21:13)
[2021-01-23] MEDS: magnesium sulfate premix 2 GM/50 ML PIGGYBACK IV (09:59)
[2021-01-23] MEDS: metoprolol tartrate 25 mg Tablet PO ×2 (10:00→21:14)
[2021-01-23 11:04] LABS: Glucose Point of Care 140 mg/dL (70-110)
--- NOTE | 2021-01-23 11:58 | PM.PN ---
Subjective Subjective: Interval history: Patient confused. Complains of back pain. Vitals/I&O/Wt Last Vital Signs Temp 98.8 F 01/23/21 10:00 Pulse 115 H 01/23/21 10:00 Resp 17 01/23/21 10:00 BP 135/90 01/23/21 04:00 Pulse Ox 98 01/23/21 10:00 01/22/21 01/23/21 01/23/21 22:59 06:59 14:59 Intake Total 50 / 1674.0 290 / 1964.0 180 / 180 Output Total 1200 / 1200 250 / 1450 Balance -1150 / 474.0 40 / 514.0 180 / 180 Weight last 48 hrs Weight 123 lb 1 oz Weight 134 lb 1 oz Physical Exam Narrative: EXAM NARRATIVE: Left hip dressing clean and dry. Minimal left thigh swelling Urinary Catheter Management^: Voss: Cath Placed During This Visit: yes Reason for Continuing Indwelling Catheter: Accurate Measurement of Urinary Output in Critically Ill Patients Urinary Catheter Date of Insertion: 01/18/21 Urinary Catheter Time of Insertion: 19:15 Data : 01/23/21 04:48 01/23/21 04:48 A&P Assessment and plan (1) Postoperative state: Status: Acute (2) Intertrochanteric fracture of left hip: The patient can be mobilized as tolerated. She has full weightbearing of the left hip. Follow-up plans were made for discharge. Status: Acute Qualifiers: Encounter type: initial encounter Fracture type: closed Fracture alignment: displaced Qualified Code(s): S72.142A - Displaced intertrochanteric fracture of left femur, initial encounter for closed fracture Attestations Medical Necessity Statement*: As per medicine Coding Level of Care Code Acute Florist for [facility] Filiberto Diagnoses Postoperative state Z98.890 Intertrochanteric fracture of left hip S72.142A Encounter type: initial encounter Fracture type: closed Fracture alignment: displaced
[2021-01-23 12:44] LABS: 25 Hydroxy Vitamin D 39 ng/mL (30-100)
--- NOTE | 2021-01-23 14:10 | P.PN_ITS ---
Subjective Subjective: Interval history: Patient underwent ORIF yesterday late in the evening. Overnight patient had mild confusion postoperatively. Today morning on examination patient lying comfortably in bed, awake to self, place mildly forgetful and having tangential thought. States she is slightly hungry and would like to have a solid. Has remained hemodynamically stable and afebrile. Mild tachycardia present since last night. Vitals/I&O/Wt Last Vital Signs Temp 98.8 F 01/23/21 10:00 Pulse 88 01/23/21 12:00 Resp 15 01/23/21 12:00 BP 135/90 01/23/21 04:00 Pulse Ox 100 01/23/21 12:00 01/22/21 01/23/21 01/23/21 22:59 06:59 14:59 Intake Total 50 / 1674.0 290 / 1964.0 420 / 420 Output Total 1200 / 1200 250 / 1450 Balance -1150 / 474.0 40 / 514.0 420 / 420 Weight last 48 hrs Weight 55.82 kg Weight 60.81 kg Physical Exam Const: COMMON NORMALS: no acute distress GENERAL APPEARANCE: cooperative and comfortable ORIENTATION/CONSCIOUSNESS: Yes awake and Yes confused (Less than yesterday, but still confused) HENMT: COMMON NORMALS: oropharynx normal Neck/C-Spine: COMMON NORMALS: no JVD Resp: COMMON NORMALS: normal respiratory effort and clear to auscultation bilaterally AUSCULTATION: clear to auscultation bilaterally OTHER: Generally weak. Cardio: COMMON NORMALS: no JVD, regular rhythm, S1 normal heart sound present, S2 normal heart sound present and No murmurs present (Cardio) RHYTHM: regular rhythm HEART SOUNDS: S1 normal heart sound present and S2 normal heart sound present GI: COMMON NORMALS: Normal to inspection, nondistended, normoactive bowel sounds present, Soft to palpation and non-tender PALPATION: Yes Soft to palpation Extremity: COMMON NORMALS: no joint enlargement and no pedal edema Neuro: COMMON NORMALS: moves all extremities Skin: COMMON NORMALS: no rashes or lesions noted GENERAL SKIN EXAM: no rashes or lesions noted Urinary Catheter Management^: Voss: Cath Placed During This Visit: yes Reason for Continuing Indwelling Catheter: Accurate Measurement of Urinary Output in Critically Ill Patients Urinary Catheter Date of Insertion: 01/18/21 Urinary Catheter Time of Insertion: 19:15 Data : 01/23/21 04:48 01/23/21 04:48 A&P Assessment and plan (1) Intertrochanteric fracture of left hip: Appreciate orthopedics recommendations. Plan for the OR today. Physical therapy, anticoagulation, diet advancement as per surgical team. Status: Acute Qualifiers: Encounter type: initial encounter Fracture type: closed Fracture alignment: displaced Qualified Code(s): S72.142A - Displaced intertrochanteric fracture of left femur, initial encounter for closed fracture (2) Postoperative state: Status: Acute (3) Refeeding syndrome: Status: Acute (4) Electrolyte abnormality: Status: Acute (5) Fall at home: Several days ago Status: Acute Qualifiers: Encounter type: initial encounter Qualified Code(s): W19.XXXA - Unspecified fall, initial encounter; Y92.009 - Unspecified place in unspecified non-institutional (private) residence as the place of occurrence of the external cause (6) Thyroid disorder: Hyperthyroidism. Start on metoprolol for tachycardia. Thyroid ultrasound appreciated. Thyroid peroxidase antibodies. We need to repeat thyroid panel in 1 week. May need to follow-up as an outpatient with building guard deputy sheriff. Status: Acute (7) Acute encephalopathy: Metabolic encephalopathy: Multifactorial. Most likely combination findings of metabolic acidosis, UTI, acute kidney injury. Resolving. Status: Acute (8) Ketoacidosis: Most likely a combination of starvation ketosis along with semaglutide induced diabetic ketosis. Anion gap stable. Continue with subcu insulin. N.p.o. for possible OR today. Advance diet to carb consistent diet once cleared from orthopedics. Continue with IV fluids with normal saline at 50 cc/h Status: Acute (9) Acute kidney injury: Resolved. IV fluid as above. Medical reconciliation done for nephrotoxic drugs. Continue to monitor BMP daily. Status: Acute (10) Lactic acidosis: Resolved. Most likely a combination of starvation ketosis along with possibility of Metformin induced lactic acidosis in setting of baseline possible chronic liver disease. Less likely secondary to UTI. Resolved. Status: Acute (11) High anion gap metabolic acidosis: As above. Status: Acute (12) Macrocytic anemia: Postponement of blood transfusion. Hemoglobin stable. Appreciate vitamin B12, folate levels. Homocystine level pending. Protonix twice daily. Oral iron supplementation. Add Carafate before meals and at bedtime. Patient would most likely need EGD and colonoscopy as an outpatient. Status: Acute (13) Type 2 diabetes mellitus: Insulin sliding scale. Status: Chronic Qualifiers: Diabetes mellitus retirement insulin use: without middle or intermediate school principal use Diabetes mellitus complication status: with neurologic complications Diabetes mellitus complication detail: with unspecified neuropathy Qualified Code(s): E11.40 - Type 2 diabetes mellitus with diabetic neuropathy, unspecified (14) Hypertension: Goal blood pressure less than 140/91 Hg. We will uptitrate medication as per blood pressure monitoring. Status: Chronic Qualifiers: Hypertension type: primary hypertension Qualified Code(s): I10 - Essential (primary) hypertension (15) UTI (urinary tract infection): Urine culture consistent with Enterobacter. Sensitivities appreciated. Stop vancomycin, ceftriaxone.-Patient is perioperative for now continue with Zosyn. Will de-escalate to ceftriaxone postoperatively. Status: Acute (16) Major depressive disorder: Chronically on venlafaxine, Seroquel and mirtazapine was added in October or November Continue venlafaxine. Status: Chronic (17) Anxiety disorder: Chronically on clonazepam. Resume. Status: Chronic (18) History of alcohol dependence: No alcoholic drinks and last 2 months as per . She does not have liver cirrhosis far as he knows. She reports occaional beer drink. Suspected history of heavy consumption in the past. Status: Chronic (19) Moderate protein-calorie malnutrition: Secondary to poor oral intake and impact potentially of previous alcohol use P.o. intake is tolerating. Ensure clear with meals. Status: Acute Additional A&P Information Reported sarcoidosis Full code. Mechanical soft diet. Heparin for DVT prophylaxis. Protonix for PUD prophylaxis. Plan for day: Physical therapy, out of bed to chair. Change antibiotics from Zosyn to ceftriaxone. Last dose of ceftriaxone on 01/26. Replace multiple electrolytes including magnesium, potassium, phosphorous. Start patient on oral magnesium: Iron, potassium for concern of refeeding syndrome. Continue with IV fluids. Thyroid ultrasound appreciated. Start patient on metoprolol 25 mg twice daily for persistent tachycardia. 1 unit blood transfusion for postoperative anemia. Start patient on mechanical soft diet[facility] Discharge planning: Plan to discharge to SNF for further rehabitation. Attestations Medical Necessity Statement*: Requires further hospitalization for postoperative care/post ORIF, multiple electrolyte abnormalities/refeeding syndrome, moderate protein calorie energy malnutrition, acute metabolic encephalopathy secondary to UTI and alcohol dependence. Time Spent in Patient Care: Greater than 35 minutes (>than 50% of time spent in counselling and/or direct pt care on unit) . Coding Level of Care Code Acute Planer Operator for Chg Fwd Diagnoses Intertrochanteric fracture of left hip S72.142A Encounter type: initial encounter Fracture type: closed Fracture alignment: displaced Postoperative state Z98.890 Refeeding syndrome E87.8 Electrolyte abnormality E87.8 Fall at home W19.XXXA; Y92.009 Encounter type: initial encounter Thyroid disorder E07.9 Acute encephalopathy G93.40 Ketoacidosis E87.2 Acute kidney injury N17.9 Lactic acidosis E87.2 High anion gap metabolic acidosis E87.2 Macrocytic anemia D53.9 Type 2 diabetes mellitus E11.40 Diabetes mellitus middle or intermediate school principal insulin use: without middle or intermediate school principal use Diabetes mellitus complication status: with neurologic complications Diabetes mellitus complication detail: with unspecified neuropathy Hypertension I10 Hypertension type: primary hypertension UTI (urinary tract infection) N39.0 Major depressive disorder F32.9 Anxiety disorder F41.9 History of alcohol dependence F10.21 Moderate protein-calorie malnutrition E44.0
[2021-01-23] MEDS: CLONazepam 1 mg Tablet 0.5 MG PO (15:48)
[2021-01-23 17:15] LABS: Glucose Point of Care 175 mg/dL (70-110)
[2021-01-23] MEDS: calcium carb-vit d 600mg/400unit 1 Tablet 1 EACH PO (17:39)
[2021-01-23] MEDS: magnesium oxide 400 mg tablet PO (17:39)
[2021-01-23] MEDS: insulin lispro 100 unit/1 mL SUBCUT ×2 (17:39→21:14)
--- NOTE | 2021-01-23 18:13 | PC.NURSE ---
Shift Note Frequent safety and comfort rounds continue. Orders and nursing care completed as indicated. Patient remains A&Ox4 with bits of confusion- asking for a cigarette and denies she is in the hospital says she is in the back of the bank'. Patient turned Q2HR with assistance of other ICU staff. Patient sacrum noted to be red due to frequent diarrhea yesterday. Physical therapy got patient up to the chair. Patient received a bath, linen change, and catheter care. Patient participated in self care. and brother visited patient today. Patient monitored for response to intervention and treatments. Education provided includes new medications, frequent position changes, and upcoming surgery. Patient and verbalized understanding. Will continue to monitor.
[2021-01-23 20:11] LABS: Glucose Point of Care 156 mg/dL (70-110)
[2021-01-23] MEDS: quetiapine 25 mg Tablet PO (21:13)
[2021-01-23] MEDS: cefTRIAXone 1,000 MG in sodium chloride 0.9% (plus) 50 ML 100 MG IV (21:13)
[2021-01-24] VITALS (16 sets, daily range): BP systolic 128–150; BP diastolic 72–92; PULSE 78–116; RESP 13–24; TEMP 36.4–36.6; O2SAT 95–98; BMI 22.1
[2021-01-24] MEDS: sodium chlor 0.9% + KCl 40 mEq 40 MEQ/1,000 ML BAG 50 MEQ IV ×2 (03:29→22:28)
[2021-01-24 04:56] LABS: Basophils % 0.1 %; Eosinophils % 0.3 %; Hematocrit 22.4 % (37.0-47.0); Hemoglobin 7.5 g/dL (11.5-15.3); Lymphocytes % 28.8 %; Mean Corpuscular HGB Conc 33.5 g/dL (30.0-36.0); Mean Corpuscular Hemoglobin 31.1 pg (28.0-34.0); Mean Corpuscular Volume 92.9 fl (81-99); Monocytes # 0.8 10^3/uL (0.2-0.9); Monocytes % 11.6 %; Neutrophils # 3.84 10^3/uL (1.8-7.7); Neutrophils % 55.7 %; Nucleated Red Blood Cells % 0 %; Platelet Count 246 10^3/cmm (130-400); Red Blood Count 2.41 10^6/uL (4.1-5.3); Red Cell Distribution Width 19.1 % (12.1-15.1); White Blood Count 6.9 10^3/uL (4.0-10.0)
[2021-01-24 05:20] LABS: Vancomycin Trough 4.3 ug/mL (10-15)
[2021-01-24 05:26] LABS: Slide Review Slide Review Perform
[2021-01-24] MEDS: enoxaparin 40 mg/0.4 mL Syringe SUBCUT (06:37)
[2021-01-24] MEDS: sucralfate 1 gm/10 mL Oral Liq UDC PO ×4 (06:37→20:47)
--- NOTE | 2021-01-24 07:09 | PC.NURSE ---
Shift Note Frequent safety and comfort rounds continue. Orders and/or nursing care completed as indicated. Patient monitored for response to intervention and treatment(s). Education provided includes medication and incision care. Patient needs further reinforcement teaching. Patient remains confused to place and reports seeing spiders in the corners of room overnight. Reoriented patient throughout shift to time and place. Voss catheter drained 2200 mls of bright yellow urine overnight. Bilateral upper arms are bruised and left hip has two incisions from recent hip surgery, no other wounds or skin issues noted at this time. No complaints of pain overnight. Will continue to monitor.
--- NOTE | 2021-01-24 08:00 | PC.NURSE ---
Pt OOB with 2 assist and walker to chair at bedside. Pt required frequent queuing.
[2021-01-24 08:13] LABS: Glucose Point of Care 117 mg/dL (70-110)
[2021-01-24] MEDS: pantoprazole 40 mg SDV IVP ×2 (08:45→20:47)
[2021-01-24] MEDS: magnesium oxide 400 mg tablet PO ×2 (08:47→18:19)
[2021-01-24] MEDS: ferrous sulfate EC 325 mg Tablet PO ×2 (08:47→18:19)
[2021-01-24] MEDS: calcium carb-vit d 600mg/400unit 1 Tablet 1 EACH PO ×2 (08:47→18:19)
[2021-01-24] MEDS: metoprolol tartrate 25 mg Tablet PO ×2 (08:48→20:47)
[2021-01-24] MEDS: potassium chloride ER 20 mEq Tablet 40 MEQ PO (08:48)
[2021-01-24] MEDS: gabapentin 100 mg Capsule 200 MG PO ×3 (08:48→20:47)
[2021-01-24] MEDS: acetaminophen 325 mg Tablet 650 MG PO (08:48)
[2021-01-24] MEDS: venlafaxine ER (24HR) 75 mg Capsule PO (08:49)
[2021-01-24] MEDS: insulin glargine 100 units/1 mL 10 UNIT SUBCUT (08:49)
--- NOTE | 2021-01-24 09:35 | PC.CHAP ---
Pastoral Care Encounter/Spiritual Assessment Type of Contact [] Declined official greeter visit [] Patient/Family/Request visit [] Outpatient visit [] Follow-up visit [] Physician referral [] Code/Alert [x] Routine visit [] Staff referral [] Actively dying [] Patient sleeping [] Family support [] [] Out of room [] Palliative care [] [] Receiving care in room [] Pre-surgical visit [] Trauma [] Long length of stay [x] ICU visit [] Other: Relational/Emotional Strength [] Patient feels connected with others/family/visitors/staff [] Distress [] Loneliness/isolation [] Abandonment Spirituality of Patient [] Person of [place] [] Attends Mu-Ism of their [place] [] Believes in Prayer [] Reads Bible or Yarsani materials [] There are Spiritual issues to be addressed Tobacco Prizer Interventions [x] Prayer [x] Active listening [x] Non-anxious presence [x] Spiritual/emotional support [] Crisis/trauma care [] Spiritual counseling [] Bereavement support [] Provided bereavement packet [] Provided Bible/devotional materials [] Provided toy/stuffed animal, coloring book to patient or family member [] Provided Communion [] Anointing/[place] [] Salvation [x] Completed spiritual assessment [] Other: Impact on Illness or Injury [] Angry [] Fearful [] Anxious [] Often cries [] Exhaustion [] Unable to work [] Unable to attend sikhism [] Unable to walk/stand [] Unable to read [] Unable to drive [] Unable to eat/drink [] Unable to sleep [] Unable to be with family [] Patient intubated [] Other: Summary patient setting up in chair.. requested additional coffee..staff stated no problem Time spent with patient 5 min
--- NOTE | 2021-01-24 10:45 | PC.NURSE ---
PT at bedside, pt stated she was very tired. She did most of the requested exercises but she was ready to quit at anytime throughout the session. Pt now in bed resting.
[2021-01-24 11:31] LABS: Glucose Point of Care 230 mg/dL (70-110)
[2021-01-24] MEDS: insulin lispro 100 unit/1 mL SUBCUT ×2 (11:49→23:25)
[2021-01-24 13:56] LABS: Coronavirus Test Green County Detected
--- NOTE | 2021-01-24 13:57 | PC.NURSE ---
Pt OOB to chair for lunch with 1 assist and walker. She required frequent queuing again. She needed to use BSC after meal time , assist pt to BSC. Noted pt back in chair when called back into room for her being done on BSC. Pt reminded to use call light. Fall risks and prevention of falls reinforced.
[2021-01-24] MEDS: CLONazepam 1 mg Tablet 0.5 MG PO (14:07)
[2021-01-24 14:17] LABS: Alanine Aminotransferase 13 U/L (0-33); Albumin Level 2.2 g/dL (3.5-5.2); Alkaline Phosphatase 66 IU/L (35-105); Anion Gap 21.2 (5-19); Aspartate Amino Transferase 21 U/L (0-32); Blood Urea Nitrogen 5 mg/dL (8-23); Calcium 6.9 mg/dL (8.5-10.5); Carbon Dioxide 17 mmol/L (22-29); Chloride 103 mmol/L (98-107); Free T4 Free Thyroxine 1.21 ng/dL (0.82-1.77); Globulin 1.5 g/dL (1.3-4.6); Glomerular Filtration Rate 160.2 mL/min (90-130); Glucose 222 mg/dL (65-115); Magnesium 1.7 mg/dL (1.7-2.3); Osmolality Calculated 288 mOsm/kg (285-295); Phosphorus 2.5 mg/dL (2.5-4.5); Potassium 4.2 mmol/L (3.5-5.1); Sodium 137 mmol/L (136-145); Thyroid Stimulating Hormone 3.32 uIU/mL (0.27-4.20); Total Bilirubin 0.6 mg/dL (0.15-1.2); Total Protein 3.7 g/dL (6.6-8.7)
[2021-01-24 16:22] LABS: Thyroid Peroxidase Antobodies 1 IU/mL (<9)
--- NOTE | 2021-01-24 16:55 | PM.PN ---
Subjective Subjective: Interval history: Patient underwent ORIF yesterday late in the evening. Overnight patient had mild confusion postoperatively. Today morning on examination patient lying comfortably in bed, awake to self, place mildly forgetful and having tangential thought. States she is slightly hungry and would like to have a solid. Has remained hemodynamically stable and afebrile. Mild tachycardia present since last night. Vitals/I&O/Wt Last Vital Signs Temp 97.6 F 01/24/21 08:00 Pulse 84 01/24/21 14:00 Resp 24 H 01/24/21 12:00 BP 146/92 01/24/21 12:00 Pulse Ox 97 01/24/21 12:00 01/24/21 01/24/21 01/24/21 06:59 14:59 22:59 Intake Total 1310 / 1730 750 / 750 Output Total 2200 / 2200 Balance -890 / -470 750 / 750 Weight last 48 hrs Weight 56.841 kg Weight 55.82 kg Physical Exam Const: COMMON NORMALS: no acute distress GENERAL APPEARANCE: cooperative and comfortable ORIENTATION/CONSCIOUSNESS: Yes awake and Yes confused (Less than yesterday, but still confused) HENMT: COMMON NORMALS: oropharynx normal Neck/C-Spine: COMMON NORMALS: no JVD Resp: COMMON NORMALS: normal respiratory effort and clear to auscultation bilaterally AUSCULTATION: clear to auscultation bilaterally OTHER: Generally weak. Cardio: COMMON NORMALS: no JVD, regular rhythm, S1 normal heart sound present, S2 normal heart sound present and No murmurs present (Cardio) RHYTHM: regular rhythm HEART SOUNDS: S1 normal heart sound present and S2 normal heart sound present GI: COMMON NORMALS: Normal to inspection, nondistended, normoactive bowel sounds present, Soft to palpation and non-tender PALPATION: Yes Soft to palpation Extremity: COMMON NORMALS: no joint enlargement and no pedal edema Neuro: COMMON NORMALS: moves all extremities Skin: COMMON NORMALS: no rashes or lesions noted GENERAL SKIN EXAM: no rashes or lesions noted Urinary Catheter Management^: Voss: Cath Placed During This Visit: yes Reason for Continuing Indwelling Catheter: Accurate Measurement of Urinary Output in Critically Ill Patients Urinary Catheter Date of Insertion: 01/18/21 Urinary Catheter Time of Insertion: 19:15 Data : 01/24/21 04:42 01/24/21 12:40 Micro: Microbiology 01/19/21 12:14 Blood Culture - Final Blood NO GROWTH AFTER 5 DAYS 01/19/21 12:19 Blood Culture - Final Blood NO GROWTH AFTER 5 DAYS A&P Assessment and plan (1) COVID-19: Asymptomatic. On room air. PCR positive today. Confirmed with the . Regarding her monoclonal antibodies. Order placed. Vitamin C, zinc. Monitor oxygen supplementation. Status: Acute (2) Intertrochanteric fracture of left hip: Appreciate orthopedics recommendations. Post ORIF day 2 Physical therapy, Lovenox for anticoagulation, Status: Acute Qualifiers: Encounter type: initial encounter Fracture type: closed Fracture alignment: displaced Qualified Code(s): S72.142A - Displaced intertrochanteric fracture of left femur, initial encounter for closed fracture (3) Postoperative state: Status: Acute (4) Refeeding syndrome: Monitor electrolytes. Will replace potassium, magnesium, phosp, calcium Status: Acute (5) Electrolyte abnormality: Status: Acute (6) Fall at home: Several days ago Status: Acute Qualifiers: Encounter type: initial encounter Qualified Code(s): W19.XXXA - Unspecified fall, initial encounter; Y92.009 - Unspecified place in unspecified non-institutional (private) residence as the place of occurrence of the external cause (7) Thyroid disorder: Hyperthyroidism. Start on metoprolol for tachycardia. Thyroid ultrasound appreciated. Thyroid peroxidase antibodies. Repeat thyroid panel. Status: Acute (8) Acute encephalopathy: Metabolic encephalopathy: Multifactorial. Most likely combination findings of metabolic acidosis, UTI, acute kidney injury. Resolving. Status: Acute (9) Ketoacidosis: Most likely a combination of starvation ketosis along with semaglutide induced diabetic ketosis. Anion gap stable. Continue with subcu insulin. N.p.o. for possible OR today. Advance diet to carb consistent diet once cleared from orthopedics. Continue with IV fluids with normal saline at 50 cc/h Status: Acute (10) Acute kidney injury: Resolved. IV fluid as above. Medical reconciliation done for nephrotoxic drugs. Continue to monitor BMP daily. Status: Acute (11) Lactic acidosis: Resolved. Most likely a combination of starvation ketosis along with possibility of Metformin induced lactic acidosis in setting of baseline possible chronic liver disease. Less likely secondary to UTI. Resolved. Status: Acute (12) High anion gap metabolic acidosis: As above. Status: Acute (13) Macrocytic anemia: Postponement of blood transfusion. Hemoglobin stable. Appreciate vitamin B12, folate levels. Homocystine level pending. Protonix twice daily. Oral iron supplementation. Add Carafate before meals and at bedtime. Patient would most likely need EGD and colonoscopy as an outpatient. Status: Acute (14) Type 2 diabetes mellitus: Insulin sliding scale. Status: Chronic Qualifiers: Diabetes mellitus snf insulin use: without supervisor intermediates use Diabetes mellitus complication status: with neurologic complications Diabetes mellitus complication detail: with unspecified neuropathy Qualified Code(s): E11.40 - Type 2 diabetes mellitus with diabetic neuropathy, unspecified (15) Hypertension: Goal blood pressure less than 140/91 Hg. We will uptitrate medication as per blood pressure monitoring. Status: Chronic Qualifiers: Hypertension type: primary hypertension Qualified Code(s): I10 - Essential (primary) hypertension (16) UTI (urinary tract infection): Urine culture consistent with Enterobacter. Sensitivities appreciated. Stop vancomycin, ceftriaxone.-Patient is perioperative for now continue with Zosyn. Will de-escalate to ceftriaxone postoperatively. Status: Acute (17) Major depressive disorder: Chronically on venlafaxine, Seroquel and mirtazapine was added in October or November Continue venlafaxine. Status: Chronic (18) Anxiety disorder: Chronically on clonazepam. Resume. Status: Chronic (19) History of alcohol dependence: No alcoholic drinks and last 2 months as per . She does not have liver cirrhosis far as he knows. She reports occaional beer drink. Suspected history of heavy consumption in the past. Status: Chronic (20) Moderate protein-calorie malnutrition: Secondary to poor oral intake and impact potentially of previous alcohol use P.o. intake is tolerating. Ensure clear with meals. Status: Acute Additional A&P Information Reported sarcoidosis Full code. Mechanical soft diet. Heparin for DVT prophylaxis. Protonix for PUD prophylaxis. Plan for day: Monoclonal antibody for COVID-19. Monitor oxygen requirements. Vitamin C, zinc. Continue with physical therapy. Repeat thyroid panel. Continue with metoprolol. Continue with oral electrolyte replacement. Continue with safe discharge planning. Discharge planning: Patient requires further rehabilitation. Given COVID-[address] at SNF as currently patient's for COVID-19 positive or not accepted for 14 days. Will discuss with patient's caregiver/ for placement to SNF in outside area versus discharge home with home health. Have alerted case management. Attestations Medical Necessity Statement*: Requires further hospitalization for postoperative care post-ORIF, electrolyte abnormality in setting of refeeding syndrome, chronic alcohol abuse, moderate protein energy malnutrition, physical therapy while safe discharge planning is sought. Time Spent in Patient Care: Greater than 35 minutes (>than 50% of time spent in counselling and/or direct pt care on unit). Coding Level of Care Code Acute Automatic Screwmaker for Chg Fwd Diagnoses COVID-19 U07.1 Intertrochanteric fracture of left hip S72.142A Encounter type: initial encounter Fracture type: closed Fracture alignment: displaced Postoperative state Z98.890 Refeeding syndrome E87.8 Electrolyte abnormality E87.8 Fall at home W19.XXXA; Y92.009 Encounter type: initial encounter Thyroid disorder E07.9 Acute encephalopathy G93.40 Ketoacidosis E87.2 Acute kidney injury N17.9 Lactic acidosis E87.2 High anion gap metabolic acidosis E87.2 Macrocytic anemia D53.9 Type 2 diabetes mellitus E11.40 Diabetes mellitus supervisor intermediates insulin use: without supervisor intermediates use Diabetes mellitus complication status: with neurologic complications Diabetes mellitus complication detail: with unspecified neuropathy Hypertension I10 Hypertension type: primary hypertension UTI (urinary tract infection) N39.0 Major depressive disorder F32.9 Anxiety disorder F41.9 History of alcohol dependence F10.21 Moderate protein-calorie malnutrition E44.0
[2021-01-24 17:59] LABS: Glucose Point of Care 90 mg/dL (70-110)
--- NOTE | 2021-01-24 19:10 | PC.NURSE ---
Shift Note; Pt alert to self, birthday, month year and situation. She can be impulsive, she transferred herself from BSC to chair today without staff in room. Pt has worried about her exercises all day, she does not want to do them. She requires a walker and at least 1 assist for transfers. She can push herself out of chair with some difficulty. She has a harder time lifting her bottom in bed to reposition herself. She requires frequent reminders/cues during transfers and moving. She uses call light to call staff in room to visit. Lungs sounds clear. Incision intact. She has a stage II on her sacrum. She has ate a good percentage of her meals and drank plenty of fluids today. Urine out put adequate : 450ml. She has had two copious BM, loose and pasty, one continent and once incontinent. Frequent safety and comfort rounds continue. Orders and/or nursing care completed as indicated. Patient monitored for response to intervention and treatment(s). Education provided includes [place] anitbody treatment, Stroartimab, PT needed, Dr Gonzalez use of leg, Klonopin, Isolation. Patient and/or business banking representative verbalized understanding of medications, plan of care and Isolation/ visiting policies. Will continue to monitor.
[2021-01-24] MEDS: cefTRIAXone 1,000 MG in sodium chloride 0.9% (plus) 50 ML 100 MG IV (20:32)
[2021-01-24] MEDS: quetiapine 25 mg Tablet PO (20:47)
[2021-01-25] VITALS (11 sets, daily range): BP systolic 119–159; BP diastolic 67–93; PULSE 79–109; RESP 14–22; TEMP 36.5–36.8; O2SAT 96–100
[2021-01-25 01:33] LABS: Glucose Point of Care 175 mg/dL (70-110)
[2021-01-25] MEDS: acetaminophen 325 mg Tablet 650 MG PO (04:06)
[2021-01-25 04:46] LABS: Alanine Aminotransferase 13 U/L (0-33); Albumin Level 2.1 g/dL (3.5-5.2); Alkaline Phosphatase 63 IU/L (35-105); Anion Gap 17.1 (5-19); Aspartate Amino Transferase 19 U/L (0-32); Blood Urea Nitrogen 5 mg/dL (8-23); Calcium 7.3 mg/dL (8.5-10.5); Carbon Dioxide 20 mmol/L (22-29); Chloride 104 mmol/L (98-107); Globulin 2.5 g/dL (1.3-4.6); Glomerular Filtration Rate 160.2 mL/min (90-130); Glucose 96 mg/dL (65-115); Magnesium 1.4 mg/dL (1.7-2.3); Osmolality Calculated 281 mOsm/kg (285-295); Phosphorus 1.5 mg/dL (2.5-4.5); Potassium 4.1 mmol/L (3.5-5.1); Sodium 137 mmol/L (136-145); Total Bilirubin 0.6 mg/dL (0.15-1.2); Total Protein 4.6 g/dL (6.6-8.7)
[2021-01-25] MEDS: sucralfate 1 gm/10 mL Oral Liq UDC PO ×4 (06:09→20:34)
[2021-01-25 08:37] LABS: Glucose Point of Care 132 mg/dL (70-110)
[2021-01-25] MEDS: enoxaparin 40 mg/0.4 mL Syringe SUBCUT (10:52)
[2021-01-25] MEDS: pantoprazole 40 mg SDV IVP ×2 (10:52→20:34)
[2021-01-25] MEDS: magnesium sulfate premix 2 GM/50 ML PIGGYBACK IV (10:52)
[2021-01-25] MEDS: insulin glargine 100 units/1 mL 10 UNIT SUBCUT (10:53)
[2021-01-25] MEDS: phosphorus 250 mg Tablet PO ×2 (10:53→17:49)
[2021-01-25] MEDS: calcium carb-vit d 600mg/400unit 1 Tablet 1 EACH PO ×2 (10:53→17:50)
[2021-01-25] MEDS: venlafaxine ER (24HR) 75 mg Capsule PO (10:54)
[2021-01-25] MEDS: ferrous sulfate EC 325 mg Tablet PO ×2 (10:54→17:50)
[2021-01-25] MEDS: magnesium oxide 400 mg tablet PO ×2 (10:54→17:50)
[2021-01-25] MEDS: potassium chloride ER 20 mEq Tablet 40 MEQ PO (10:54)
--- NOTE | 2021-01-25 10:55 | PC.NURSE ---
MAR other delay related to Critical care of another patient and malfunctioning scanners.
[2021-01-25] MEDS: metoprolol tartrate 25 mg Tablet PO ×2 (10:57→20:35)
[2021-01-25] MEDS: gabapentin 100 mg Capsule 200 MG PO ×3 (11:06→20:34)
[2021-01-25 12:30] LABS: Glucose Point of Care 210 mg/dL (70-110)
[2021-01-25] MEDS: insulin lispro 100 unit/1 mL SUBCUT ×2 (12:42→21:12)
--- NOTE | 2021-01-25 14:09 | PC.NURSE ---
Erik Mckinley, , notified of impending room transfer.
--- NOTE | 2021-01-25 14:30 | PM.PN ---
Subjective Subjective: Interval history: No complaints overnight. In last 24 hours patient received monoclonal body infusion for COVID-19 yesterday. Patient tolerated well. Patient has remained hemodynamically stable and afebrile. She is working with physical therapy. Able to get out of bed by herself. Seems to be back to her baseline mentation. Not agitated or confused. Vitals/I&O/Wt Last Vital Signs Temp 98 F 01/25/21 12:00 Pulse 96 01/25/21 14:00 Resp 17 01/25/21 12:00 BP 137/81 01/25/21 12:00 Pulse Ox 98 01/25/21 12:00 01/24/21 01/25/21 01/25/21 22:59 06:59 14:59 Intake Total 2557.167 / 3307.167 580 / 3887.167 650 / 650 Output Total 450 / 450 890 / 1340 Balance 2107.167 / 2857.167 -310 / 2547.167 650 / 650 Weight last 48 hrs Weight 59.829 kg Weight 56.841 kg Weight 56.841 kg Physical Exam Const: COMMON NORMALS: no acute distress GENERAL APPEARANCE: cooperative and comfortable ORIENTATION/CONSCIOUSNESS: Yes awake and Yes confused (Less than yesterday, but still confused) HENMT: COMMON NORMALS: oropharynx normal Neck/C-Spine: COMMON NORMALS: no JVD Resp: COMMON NORMALS: normal respiratory effort and clear to auscultation bilaterally AUSCULTATION: clear to auscultation bilaterally OTHER: Generally weak. Cardio: COMMON NORMALS: no JVD, regular rhythm, S1 normal heart sound present, S2 normal heart sound present and No murmurs present (Cardio) RHYTHM: regular rhythm HEART SOUNDS: S1 normal heart sound present and S2 normal heart sound present GI: COMMON NORMALS: Normal to inspection, nondistended, normoactive bowel sounds present, Soft to palpation and non-tender PALPATION: Yes Soft to palpation Extremity: COMMON NORMALS: no joint enlargement and no pedal edema Neuro: COMMON NORMALS: moves all extremities Skin: COMMON NORMALS: no rashes or lesions noted GENERAL SKIN EXAM: no rashes or lesions noted Urinary Catheter Management^: Voss: Cath Placed During This Visit: yes Reason for Continuing Indwelling Catheter: Acute Urinary Retention or Obstruction Urinary Catheter Date of Insertion: 12/09/21 Urinary Catheter Time of Insertion: 19:15 Data : 01/24/21 04:42 01/25/21 03:30 Micro: Microbiology 01/19/21 12:14 Blood Culture - Final Blood NO GROWTH AFTER 5 DAYS 01/19/21 12:19 Blood Culture - Final Blood NO GROWTH AFTER 5 DAYS A&P Assessment and plan (1) COVID-19: Asymptomatic. On room air. PCR positive 01/24. Post monoclonal antibody infusion. Vitamin C, zinc. Monitor oxygen supplementation. To remain under isolation till 02/02. Status: Acute (2) Intertrochanteric fracture of left hip: Appreciate orthopedics recommendations. Post ORIF day 3 Physical therapy, Lovenox for anticoagulation, Status: Acute Qualifiers: Encounter type: initial encounter Fracture type: closed Fracture alignment: displaced Qualified Code(s): S72.142A - Displaced intertrochanteric fracture of left femur, initial encounter for closed fracture (3) Postoperative state: Status: Acute (4) Refeeding syndrome: Monitor electrolytes. Continue with oral magnesium and potassium supplement. Add Neutra-Phos. Status: Acute (5) Electrolyte abnormality: Status: Acute (6) Fall at home: Several days ago Status: Acute Qualifiers: Encounter type: initial encounter Qualified Code(s): W19.XXXA - Unspecified fall, initial encounter; Y92.009 - Unspecified place in unspecified non-institutional (private) residence as the place of occurrence of the external cause (7) Thyroid disorder: Repeat thyroid panel within normal limits. Thyroid ultrasound appreciated. Thyroid peroxidase antibodies. Repeat thyroid panel. Status: Ruled-out (8) Acute encephalopathy: Metabolic encephalopathy: Multifactorial. Most likely combination findings of metabolic acidosis, UTI, acute kidney injury. Resolving. Status: Acute (9) Ketoacidosis: Most likely a combination of starvation ketosis along with semaglutide induced diabetic ketosis. Anion gap stable. Continue with subcu insulin. N.p.o. for possible OR today. Advance diet to carb consistent diet once cleared from orthopedics. Continue with IV fluids with normal saline at 50 cc/h Status: Acute (10) Acute kidney injury: Resolved. IV fluid as above. Medical reconciliation done for nephrotoxic drugs. Continue to monitor BMP daily. Status: Acute (11) Lactic acidosis: Resolved. Most likely a combination of starvation ketosis along with possibility of Metformin induced lactic acidosis in setting of baseline possible chronic liver disease. Less likely secondary to UTI. Resolved. Status: Acute (12) High anion gap metabolic acidosis: As above. Status: Acute (13) Macrocytic anemia: Postponement of blood transfusion. Hemoglobin stable. Appreciate vitamin B12, folate levels. Homocystine level pending. Protonix twice daily. Oral iron supplementation. Add Carafate before meals and at bedtime. Patient would most likely need EGD and colonoscopy as an outpatient. Status: Acute (14) Type 2 diabetes mellitus: Insulin sliding scale. Status: Chronic Qualifiers: Diabetes mellitus rn long term care insulin use: without senior care use Diabetes mellitus complication status: with neurologic complications Diabetes mellitus complication detail: with unspecified neuropathy Qualified Code(s): E11.40 - Type 2 diabetes mellitus with diabetic neuropathy, unspecified (15) Hypertension: Goal blood pressure less than 140/91 Hg. We will uptitrate medication as per blood pressure monitoring. Status: Chronic Qualifiers: Hypertension type: primary hypertension Qualified Code(s): I10 - Essential (primary) hypertension (16) UTI (urinary tract infection): Urine culture consistent with Enterobacter. Sensitivities appreciated. Stop vancomycin, ceftriaxone.-Patient is perioperative for now continue with Zosyn. Will de-escalate to ceftriaxone postoperatively. Status: Acute (17) Major depressive disorder: Chronically on venlafaxine, Seroquel and mirtazapine was added in October or November Continue venlafaxine. Status: Chronic (18) Anxiety disorder: Chronically on clonazepam. Resume. Status: Chronic (19) History of alcohol dependence: No alcoholic drinks and last 2 months as per . She does not have liver cirrhosis far as he knows. She reports occaional beer drink. Suspected history of heavy consumption in the past. Status: Chronic (20) Moderate protein-calorie malnutrition: Secondary to poor oral intake and impact potentially of previous alcohol use P.o. intake is tolerating. Ensure clear with meals. Status: Acute Additional A&P Information Reported sarcoidosis Full code. Mechanical soft diet. Heparin for DVT prophylaxis. Protonix for PUD prophylaxis. Plan for day: Continue physical therapy, isolation precautions. Awaiting safe discharge planning. Replace magnesium, phosphorus. Continue with oral magnesium, calcium, potassium, phosphorus supplementation. Discharge planning: Patient requires further rehabilitation. Given COVID-[address] at SNF as currently patient's for COVID-19 positive or not accepted for 14 days. Will discuss with patient's caregiver/ for placement to SNF in outside area versus discharge home with home health. Have alerted case management. Attestations Medical Necessity Statement*: Requires further hospitalization for management of postoperative care?post ORIF, refeeding syndrome, severe protein energy calorie malnutrition while safe discharge planning is sought. Time Spent in Patient Care: Greater than 35 minutes (>than 50% of time spent in counselling and/or direct pt care on unit). Coding Level of Care Code Acute Plate Stacker Hand for Chg Fwd Diagnoses COVID-19 U07.1 Intertrochanteric fracture of left hip S72.142A Encounter type: initial encounter Fracture type: closed Fracture alignment: displaced Postoperative state Z98.890 Refeeding syndrome E87.8 Electrolyte abnormality E87.8 Fall at home W19.XXXA; Y92.009 Encounter type: initial encounter Thyroid disorder E07.9 Acute encephalopathy G93.40 Ketoacidosis E87.2 Acute kidney injury N17.9 Lactic acidosis E87.2 High anion gap metabolic acidosis E87.2 Macrocytic anemia D53.9 Type 2 diabetes mellitus E11.40 Diabetes mellitus senior care insulin use: without rn long term care use Diabetes mellitus complication status: with neurologic complications Diabetes mellitus complication detail: with unspecified neuropathy Hypertension I10 Hypertension type: primary hypertension UTI (urinary tract infection) N39.0 Major depressive disorder F32.9 Anxiety disorder F41.9 History of alcohol dependence F10.21 Moderate protein-calorie malnutrition E44.0
--- NOTE | 2021-01-25 16:10 | PC.NURSE ---
Ot with pt, assisting with ADLs.. Voss removed by this nurse. Pt up with 2 assist, gait belt and walker. Pt leaning backwards with her feet too far forwards most of the time up. She kept saying she couldn't do it and trying to sit, even with repeated comments that there was no chair behind her and she would hit the floor. Got pt to where she plopped down.
--- NOTE | 2021-01-25 16:21 | PC.NURSE ---
Pt observed moving blankets and things out fo her way in what looks like the start of an attempt to get up by herself. Feet now on the floor. Window tapped on, Through door reminded pt to wait for help. Pt ceased her actions.
[2021-01-25] MEDS: sodium chlor 0.9% + KCl 40 mEq 40 MEQ/1,000 ML BAG 50 MEQ IV (16:50)
--- NOTE | 2021-01-25 17:08 | PC.NURSE ---
Pt transfered to room 258 via W/C, belongings with pt Bedside report given to Joni Cisneros and MELLISSA Oliveira. Including need for chair alarm and probable need for bed alarm. Pt due to void after Voss removal.
[2021-01-25 17:10] LABS: Glucose Point of Care 108 mg/dL (70-110)
--- NOTE | 2021-01-25 17:10 | PC.NURSE ---
Shift Note: Pt remains confused.. Pt more difficult to transfer and cue today She says she can't help it she is afraid of falling and she does not want to do what she knows she should, referring to physical therapy. She has stayed in bed most of the day. Voss recently removed without difficulty, pt still due to void. Updated family on transfer to [facility]. Frequent safety and comfort rounds continue. Orders and/or nursing care completed as indicated. Patient monitored for response to intervention and treatment(s). Education provided includes physical therapy, falling risks and safety, magnesium and other medications. Patient and/or bank representative verbalizes understanding. Pt resistant to information or actual physical therapy and movement and cues to guide her. . Will continue to monitor.
[2021-01-25] MEDS: ascorbic acid 500 mg Tablet 1000 MG PO (17:49)
[2021-01-25] MEDS: cefTRIAXone 1,000 MG in sodium chloride 0.9% (plus) 50 ML 100 MG IV (20:33)
[2021-01-25] MEDS: quetiapine 25 mg Tablet PO (20:35)
[2021-01-25 21:15] LABS: Glucose Point of Care 186 mg/dL (70-110)
[2021-01-26] VITALS: BP 134/81; PULSE 82; RESP 18; TEMP 36.7; O2SAT 99
[2021-01-26 04:00] VITALS: BP 157/87; PULSE 89; RESP 19; TEMP 37.1; O2SAT 99
[2021-01-26] MEDS: sucralfate 1 gm/10 mL Oral Liq UDC PO ×3 (06:09→20:39)
[2021-01-26 07:03] LABS: Glucose Point of Care 82 mg/dL (70-110)
[2021-01-26 07:04] LABS: Magnesium 1.4 mg/dL (1.7-2.3); Phosphorus 2.4 mg/dL (2.5-4.5)
[2021-01-26 07:16] LABS: Alanine Aminotransferase 14 U/L (0-33); Alkaline Phosphatase 68 IU/L (35-105); Anion Gap 16.2 (5-19); Aspartate Amino Transferase 24 U/L (0-32); Blood Urea Nitrogen 4 mg/dL (8-23); Calcium 7.2 mg/dL (8.5-10.5); Carbon Dioxide 19 mmol/L (22-29); Chloride 103 mmol/L (98-107); Globulin 2.7 g/dL (1.3-4.6); Glomerular Filtration Rate 223.3 mL/min (90-130); Glucose 79 mg/dL (65-115); Osmolality Calculated 274 mOsm/kg (285-295); Potassium 4.2 mmol/L (3.5-5.1); Sodium 134 mmol/L (136-145); Total Bilirubin 0.7 mg/dL (0.15-1.2); Total Protein 4.7 g/dL (6.6-8.7)
[2021-01-26 08:00] VITALS: BP 154/72; PULSE 76; RESP 18; TEMP 36.8; O2SAT 97
[2021-01-26] MEDS: enoxaparin 40 mg/0.4 mL Syringe SUBCUT (08:28)
[2021-01-26] MEDS: potassium chloride ER 20 mEq Tablet 40 MEQ PO (08:29)
[2021-01-26] MEDS: magnesium oxide 400 mg tablet PO (08:29)
[2021-01-26] MEDS: ascorbic acid 500 mg Tablet 1000 MG PO (08:29)
[2021-01-26] MEDS: phosphorus 250 mg Tablet PO (08:29)
[2021-01-26] MEDS: gabapentin 100 mg Capsule 200 MG PO ×3 (08:29→20:39)
[2021-01-26] MEDS: ferrous sulfate EC 325 mg Tablet PO (08:29)
[2021-01-26] MEDS: zinc gluconate 50 mg Tablet PO (08:29)
[2021-01-26] MEDS: venlafaxine ER (24HR) 75 mg Capsule PO (08:29)
[2021-01-26] MEDS: calcium carb-vit d 600mg/400unit 1 Tablet 1 EACH PO (08:29)
[2021-01-26] MEDS: pantoprazole 40 mg SDV IVP ×2 (08:30→20:39)
[2021-01-26] MEDS: metoprolol tartrate 25 mg Tablet PO ×2 (08:30→20:39)
--- NOTE | 2021-01-26 10:54 | PC.SOCIAL ---
IMM Update Pg. 2 of IMM updated and reviewed with patient's over the phone. Verbalized understanding.
[2021-01-26 10:57] LABS: Glucose Point of Care 133 mg/dL (70-110)
[2021-01-26 11:22] VITALS: BP 129/74; PULSE 74; RESP 16; TEMP 36.8; O2SAT 95
--- NOTE | 2021-01-26 14:43 | PM.PN ---
Subjective Subjective: Interval history: No current overnight. Patient denies any nausea vomiting, headache. Seen sitting up in chair. Continues to remain severely physically deconditioned. Working with physical therapy. Seems to be back to her baseline mentation. Vitals/I&O/Wt Last Vital Signs Temp 98.2 F 01/26/21 11:22 Pulse 74 01/26/21 11:22 Resp 16 01/26/21 11:22 BP 129/74 01/26/21 11:22 Pulse Ox 95 01/26/21 11:22 01/25/21 01/26/21 01/26/21 22:59 06:59 14:59 Intake Total 2150 / 2850 240 / 3090 1360 / 1360 Output Total 1150 / 1150 Balance 1000 / 1700 240 / 1940 1360 / 1360 Weight last 48 hrs Weight 59.874 kg Weight 59.829 kg Weight 56.841 kg Physical Exam Narrative: EXAM NARRATIVE: General: No acute distress, AO x2-3, slow to respond, bruise present on her right arm secondary to infiltration of blood, having occasional tangential talks during regular conversation HEENT: PERRLA, pupils bilaterally equal and reactive Chest: Normal vesicular breath sounds, no added sounds, equal good air entry bilaterally CVS: S1-S2 regular, no murmurs, no tachycardia, no gallops, no rubs Abdomen: Soft, nontender, no organomegaly, bowel sounds present Neuro: No focal deficits, no facial deformity, AO x3, power 5/5 in all limbs Urinary Catheter Management^: Voss: Cath Placed During This Visit: yes, but has since been removed by the nurse Reason for Continuing Indwelling Catheter: Decision to DC Catheter Urinary Catheter Date of Insertion: 01/18/21 Urinary Catheter Time of Insertion: 19:15 Date Urinary Catheter Removed: 01/25/21 Time Urinary Catheter Discontinued: 16:00 Data : 01/24/21 04:42 01/26/21 06:18 Micro: Microbiology 01/24/21 09:55 Parasite Antigen Panel - Final Stool - Stool Aspirate 01/24/21 07:47 Enteric Pathogens (PCR) - Final Stool - Stool Aspirate 01/24/21 07:47 C.difficile Toxin B Gene (PCR) - Final Stool A&P Assessment and plan (1) COVID-19: Asymptomatic. On room air. PCR positive 01/24. Post monoclonal antibody infusion on 01/24. Vitamin C, zinc. Monitor oxygen supplementation. To remain under isolation till 02/02. Status: Acute (2) Intertrochanteric fracture of left hip: Appreciate orthopedics recommendations. Post ORIF day4 Physical therapy, Lovenox for anticoagulation, Status: Acute Qualifiers: Encounter type: initial encounter Fracture type: closed Fracture alignment: displaced Qualified Code(s): S72.142A - Displaced intertrochanteric fracture of left femur, initial encounter for closed fracture (3) Postoperative state: Status: Acute (4) Refeeding syndrome: Monitor electrolytes. Continue with oral magnesium and potassium supplement. Add Neutra-Phos. Status: Acute (5) Electrolyte abnormality: Status: Acute (6) Fall at home: Several days ago Status: Acute Qualifiers: Encounter type: initial encounter Qualified Code(s): W19.XXXA - Unspecified fall, initial encounter; Y92.009 - Unspecified place in unspecified non-institutional (private) residence as the place of occurrence of the external cause (7) Thyroid disorder: Repeat thyroid panel within normal limits. Thyroid ultrasound appreciated. Thyroid peroxidase antibodies. Repeat thyroid panel. Status: Ruled-out (8) Acute encephalopathy: Metabolic encephalopathy: Multifactorial. Most likely combination findings of metabolic acidosis, UTI, acute kidney injury. Resolving. Seems to be back to her baseline mentation. Baseline mentation seems to be poor from chronic alcohol abuse. Status: Acute (9) Ketoacidosis: Most likely a combination of starvation ketosis along with semaglutide induced diabetic ketosis. Anion gap stable. Continue with subcu insulin. N.p.o. for possible OR today. Advance diet to carb consistent diet once cleared from orthopedics. Continue with IV fluids with normal saline at 50 cc/h Status: Acute (10) Acute kidney injury: Resolved. IV fluid as above. Medical reconciliation done for nephrotoxic drugs. Continue to monitor BMP daily. Status: Acute (11) Lactic acidosis: Resolved. Most likely a combination of starvation ketosis along with possibility of Metformin induced lactic acidosis in setting of baseline possible chronic liver disease. Less likely secondary to UTI. Resolved. Status: Acute (12) High anion gap metabolic acidosis: As above. Status: Acute (13) Macrocytic anemia: Postponement of blood transfusion. Hemoglobin stable. Appreciate vitamin B12, folate levels. Homocystine level pending. Protonix twice daily. Oral iron supplementation. Add Carafate before meals and at bedtime. Patient would most likely need EGD and colonoscopy as an outpatient. Status: Acute (14) Type 2 diabetes mellitus: Insulin sliding scale. Status: Chronic Qualifiers: Diabetes mellitus retirement insulin use: without long term care administrator use Diabetes mellitus complication status: with neurologic complications Diabetes mellitus complication detail: with unspecified neuropathy Qualified Code(s): E11.40 - Type 2 diabetes mellitus with diabetic neuropathy, unspecified (15) Hypertension: Goal blood pressure less than 140/91 Hg. We will uptitrate medication as per blood pressure monitoring. Status: Chronic Qualifiers: Hypertension type: primary hypertension Qualified Code(s): I10 - Essential (primary) hypertension (16) UTI (urinary tract infection): Urine culture consistent with Enterobacter. Sensitivities appreciated. Stop vancomycin, ceftriaxone.-Patient is perioperative for now continue with Zosyn. Will de-escalate to ceftriaxone postoperatively. Status: Acute (17) Major depressive disorder: Chronically on venlafaxine, Seroquel and mirtazapine was added in October or November Continue venlafaxine. Status: Chronic (18) Anxiety disorder: Chronically on clonazepam. Resume. Status: Chronic (19) History of alcohol dependence: No alcoholic drinks and last 2 months as per . She does not have liver cirrhosis far as he knows. She reports occaional beer drink. Suspected history of heavy consumption in the past. Status: Chronic (20) Moderate protein-calorie malnutrition: Secondary to poor oral intake and impact potentially of previous alcohol use P.o. intake is tolerating. Ensure clear with meals. Status: Acute Additional A&P Information Reported sarcoidosis Full code. Mechanical soft diet. Heparin for DVT prophylaxis. Protonix for PUD prophylaxis. Plan for day: Continue physical therapy, isolation precautions, replacing electrolytes and monitoring BMP and mag and phosphorus daily. Awaiting safe discharge planning. Discharge planning: Patient has been accepted at [facility]. Awaiting off prior authorization. Attestations Medical Necessity Statement*: Requires further hospitalization for postoperative care, refeeding syndrome requiring electrolyte replacement while safe discharge planning is sought. Time Spent in Patient Care: 16 - 35 minutes (>than 50% of time spent in counselling and/or direct pt care on unit). Coding Level of Care Code Acute Paid Search Marketing Strategist for [facility] Fwd Diagnoses COVID-19 U07.1 Intertrochanteric fracture of left hip S72.142A Encounter type: initial encounter Fracture type: closed Fracture alignment: displaced Postoperative state Z98.890 Refeeding syndrome E87.8 Electrolyte abnormality E87.8 Fall at home W19.XXXA; Y92.009 Encounter type: initial encounter Thyroid disorder E07.9 Acute encephalopathy G93.40 Ketoacidosis E87.2 Acute kidney injury N17.9 Lactic acidosis E87.2 High anion gap metabolic acidosis E87.2 Macrocytic anemia D53.9 Type 2 diabetes mellitus E11.40 Diabetes mellitus long term care administrator insulin use: without long term care administrator use Diabetes mellitus complication status: with neurologic complications Diabetes mellitus complication detail: with unspecified neuropathy Hypertension I10 Hypertension type: primary hypertension UTI (urinary tract infection) N39.0 Major depressive disorder F32.9 Anxiety disorder F41.9 History of alcohol dependence F10.21 Moderate protein-calorie malnutrition E44.0
--- NOTE | 2021-01-26 14:52 | PC.CHAP ---
Pastoral Care Encounter/Spiritual Assessment Type of Contact [] Declined supervisor assembly department visit [] Patient/Family/Request visit [] Outpatient visit [xx] Follow-up visit [] Physician referral [] Code/Alert [] Routine visit [] Staff referral [] Actively dying [] Patient sleeping [] Family support [] [] Out of room [] Palliative care [] [] Receiving care in room [] Pre-surgical visit [] Trauma [xx] Long length of stay [] ICU visit [xx] Other: Patient now isolated Relational/Emotional Strength [] Patient feels connected with others/family/visitors/staff [] Distress [] Loneliness/isolation [] Abandonment Spirituality of Patient [] Person of [place] [] Attends Congregation of their [place] [] Believes in Prayer [] Reads Bible or Pentecostal materials [] There are Spiritual issues to be addressed Beater Tender Interventions [] Prayer [] Active listening [] Non-anxious presence [] Spiritual/emotional support [] Crisis/trauma care [] Spiritual counseling [] Bereavement support [] Provided bereavement packet [] Provided Bible/devotional materials [] Provided toy/stuffed animal, coloring book to patient or family member [] Provided Communion [] Anointing/[place] [] Salvation [] Completed spiritual assessment [] Other: Impact on Illness or Injury [] Angry [] Fearful [] Anxious [] Often cries [] Exhaustion [] Unable to work [] Unable to attend nondenominational [] Unable to walk/stand [] Unable to read [] Unable to drive [] Unable to eat/drink [] Unable to sleep [] Unable to be with family [] Patient intubated [] Other: Summary Time spent with patient
[2021-01-26 16:00] VITALS: BP 125/69; PULSE 70; RESP 18; TEMP 37; O2SAT 94
[2021-01-26 17:28] LABS: Glucose Point of Care 164 mg/dL (70-110)
[2021-01-26 20:00] VITALS: BP 163/85; PULSE 109; RESP 14; TEMP 37; O2SAT 98
[2021-01-26] MEDS: quetiapine 25 mg Tablet PO (20:39)
[2021-01-26 21:18] LABS: Glucose Point of Care 152 mg/dL (70-110)
[2021-01-27] VITALS (7 sets, daily range): BP systolic 120–163; BP diastolic 62–91; PULSE 64–108; RESP 14–20; TEMP 36.6–36.9; O2SAT 94–100
[2021-01-27] MEDS: sucralfate 1 gm/10 mL Oral Liq UDC PO ×4 (06:00→20:40)
[2021-01-27 06:30] LABS: Basophils % 0.3 %; Eosinophils # 0.1 10^3/uL (0.0-0.8); Eosinophils % 0.6 %; Hematocrit 24.1 % (37.0-47.0); Hemoglobin 7.8 g/dL (11.5-15.3); Lymphocytes # 2.7 10^3/uL (0.8-4.8); Mean Corpuscular HGB Conc 32.4 g/dL (30.0-36.0); Mean Corpuscular Hemoglobin 31.7 pg (28.0-34.0); Mean Platelet Volume 9.9 fL (7.4-10.4); Monocytes # 0.5 10^3/uL (0.2-0.9); Monocytes % 4.3 %; Neutrophils # 7.78 10^3/uL (1.8-7.7); Neutrophils % 68.3 %; Nucleated Red Blood Cells % 0.3 %; Platelet Count 390 10^3/cmm (130-400); Red Blood Count 2.46 10^6/uL (4.1-5.3); Red Cell Distribution Width 18.3 % (12.1-15.1); White Blood Count 11.4 10^3/uL (4.0-10.0)
[2021-01-27 06:45] LABS: Glucose Point of Care 139 mg/dL (70-110)
[2021-01-27 06:52] LABS: Alanine Aminotransferase 14 U/L (0-33); Albumin Level 2.3 g/dL (3.5-5.2); Alkaline Phosphatase 85 IU/L (35-105); Aspartate Amino Transferase 24 U/L (0-32); Blood Urea Nitrogen 6 mg/dL (8-23); Calcium 7.6 mg/dL (8.5-10.5); Carbon Dioxide 14 mmol/L (22-29); Chloride 102 mmol/L (98-107); Globulin 2.8 g/dL (1.3-4.6); Glomerular Filtration Rate 223.3 mL/min (90-130); Glucose 132 mg/dL (65-115); Osmolality Calculated 277 mOsm/kg (285-295); Sodium 134 mmol/L (136-145); Total Protein 5.1 g/dL (6.6-8.7)
[2021-01-27 07:09] LABS: Magnesium 1.4 mg/dL (1.7-2.3); Phosphorus 2.9 mg/dL (2.5-4.5)
[2021-01-27] MEDS: insulin glargine 100 units/1 mL 10 UNIT SUBCUT (08:19)
[2021-01-27] MEDS: magnesium oxide 400 mg tablet PO ×2 (08:20→17:58)
[2021-01-27] MEDS: metoprolol tartrate 25 mg Tablet PO ×2 (08:20→20:39)
[2021-01-27] MEDS: potassium chloride ER 20 mEq Tablet 40 MEQ PO (08:20)
[2021-01-27] MEDS: ferrous sulfate EC 325 mg Tablet PO ×2 (08:20→17:58)
[2021-01-27] MEDS: phosphorus 250 mg Tablet PO (08:20)
[2021-01-27] MEDS: ascorbic acid 500 mg Tablet 1000 MG PO ×2 (08:20→17:57)
[2021-01-27] MEDS: calcium carb-vit d 600mg/400unit 1 Tablet 1 EACH PO ×2 (08:20→17:58)
[2021-01-27] MEDS: zinc gluconate 50 mg Tablet PO (08:20)
[2021-01-27] MEDS: enoxaparin 40 mg/0.4 mL Syringe SUBCUT (08:20)
[2021-01-27] MEDS: venlafaxine ER (24HR) 75 mg Capsule PO (08:20)
[2021-01-27] MEDS: gabapentin 100 mg Capsule 200 MG PO ×3 (08:20→20:40)
[2021-01-27] MEDS: pantoprazole 40 mg SDV IVP ×2 (08:21→20:40)
[2021-01-27 11:14] LABS: Glucose Point of Care 167 mg/dL (70-110)
[2021-01-27] MEDS: insulin lispro 100 unit/1 mL SUBCUT (11:59)
[2021-01-27] MEDS: magnesium sulfate premix 2 GM/50 ML PIGGYBACK IV (13:14)
[2021-01-27] MEDS: sodium bicarbonate 650 mg Tablet PO ×2 (13:15→20:40)
[2021-01-27 15:23] LABS: Vit D 1,25 (Oh)2, Total 37 pg/mL (18-72); Vit D2 1,25 (Oh)2 <8 pg/mL; Vit D3 1,25 (Oh)2 37 pg/mL
--- NOTE | 2021-01-27 16:34 | P.PN_ITS ---
Subjective Subjective: Interval history: No evidence overnight. Denies any nausea vomiting, headache. Has remained hemodynamically stable and afebrile on room air. On examination laying down in bed wants to get up and go to bathroom. Working with physical therapy, max assist. Vitals/I&O/Wt Last Vital Signs Temp 98.4 F 01/27/21 16:00 Pulse 84 01/27/21 16:00 Resp 16 01/27/21 16:00 BP 120/71 01/27/21 16:00 Pulse Ox 94 01/27/21 16:00 01/27/21 01/27/21 01/27/21 06:59 14:59 22:59 Intake Total 240 / 1720 360 / 360 Balance 240 / 1720 360 / 360 Weight last 48 hrs Weight 59.874 kg Weight 59.874 kg Physical Exam Narrative: EXAM NARRATIVE: General: No acute distress, AO x2-3, slow to respond, bruise present on her right arm secondary to infiltration of blood, having occasional tangential talks during regular conversation HEENT: PERRLA, pupils bilaterally equal and reactive Chest: Normal vesicular breath sounds, no added sounds, equal good air entry bilaterally CVS: S1-S2 regular, no murmurs, no tachycardia, no gallops, no rubs Abdomen: Soft, nontender, no organomegaly, bowel sounds present Neuro: No focal deficits, no facial deformity, AO x3, power 5/5 in all limbs Const: COMMON NORMALS: no acute distress GENERAL APPEARANCE: cooperative and comfortable ORIENTATION/CONSCIOUSNESS: Yes awake and Yes confused (Less than yesterday, but still confused) HENMT: COMMON NORMALS: oropharynx normal Neck/C-Spine: COMMON NORMALS: no JVD Resp: COMMON NORMALS: normal respiratory effort and clear to auscultation bilaterally AUSCULTATION: clear to auscultation bilaterally OTHER: Generally weak. Cardio: COMMON NORMALS: no JVD, regular rhythm, S1 normal heart sound present, S2 normal heart sound present and No murmurs present (Cardio) RHYTHM: regular rhythm HEART SOUNDS: S1 normal heart sound present and S2 normal heart sound present GI: COMMON NORMALS: Normal to inspection, nondistended, normoactive bowel sounds present, Soft to palpation and non-tender PALPATION: Yes Soft to palpation Extremity: COMMON NORMALS: no joint enlargement and no pedal edema Neuro: COMMON NORMALS: moves all extremities Skin: COMMON NORMALS: no rashes or lesions noted GENERAL SKIN EXAM: no rashes or lesions noted Urinary Catheter Management^: Voss: Cath Placed During This Visit: yes, but has since been removed by the nurse Reason for Continuing Indwelling Catheter: Decision to DC Catheter Urinary Catheter Date of Insertion: 01/18/21 Urinary Catheter Time of Insertion: 19:15 Date Urinary Catheter Removed: 01/25/21 Time Urinary Catheter Discontinued: 16:00 Data : 01/27/21 05:55 01/27/21 05:55 A&P Assessment and plan (1) COVID-19: Asymptomatic. On room air. PCR positive 01/24. Post monoclonal antibody infusion on 01/24. Vitamin C, zinc. Monitor oxygen supplementation. To remain under isolation till 02/02. Status: Acute (2) Intertrochanteric fracture of left hip: Appreciate orthopedics recommendations. Post ORIF day4 Physical therapy, Lovenox for anticoagulation, Status: Acute Qualifiers: Encounter type: initial encounter Fracture type: closed Fracture alignment: displaced Qualified Code(s): S72.142A - Displaced intertrochanteric fracture of left femur, initial encounter for closed fracture (3) Postoperative state: Status: Acute (4) Refeeding syndrome: Monitor electrolytes. Continue with oral magnesium and potassium supplement, Neutra-Phos. Decrease dose of Neutra-Phos to once daily. Start on sodium bicarb 3 times a day. Monitor electrolytes daily. Status: Acute (5) Electrolyte abnormality: Status: Acute (6) Fall at home: Several days ago Status: Acute Qualifiers: Encounter type: initial encounter Qualified Code(s): W19.XXXA - Unspecified fall, initial encounter; Y92.009 - Unspecified place in unspecified non-institutional (private) residence as the place of occurrence of the external cause (7) Thyroid disorder: Repeat thyroid panel within normal limits. Thyroid ultrasound appreciated. Thyroid peroxidase antibodies. Repeat thyroid panel. Status: Ruled-out (8) Acute encephalopathy: Metabolic encephalopathy: Multifactorial. Most likely combination findings of metabolic acidosis, UTI, acute kidney injury. Resolving. Seems to be back to her baseline mentation. Baseline mentation seems to be poor from chronic alcohol abuse. Status: Acute (9) Ketoacidosis: Most likely a combination of starvation ketosis along with semaglutide ind uced diabetic ketosis. Anion gap stable. Continue with subcu insulin. N.p.o. for possible OR today. Advance diet to carb consistent diet once cleared from orthopedics. Continue with IV fluids with normal saline at 50 cc/h Status: Acute (10) Acute kidney injury: Resolved. IV fluid as above. Medical reconciliation done for nephrotoxic drugs. Continue to monitor BMP daily. Status: Acute (11) Lactic acidosis: Resolved. Most likely a combination of starvation ketosis along with possibility of Metformin induced lactic acidosis in setting of baseline possible chronic liver disease. Less likely secondary to UTI. Resolved. Status: Acute (12) High anion gap metabolic acidosis: As above. Status: Acute (13) Macrocytic anemia: Postponement of blood transfusion. Hemoglobin stable. Appreciate vitamin B12, folate levels. Homocystine level pending. Protonix twice daily. Oral iron supplementation. Add Carafate before meals and at bedtime. Patient would most likely need EGD and colonoscopy as an outpatient. Status: Acute (14) Type 2 diabetes mellitus: Insulin sliding scale. Status: Chronic Qualifiers: Diabetes mellitus member of the legislative council insulin use: without member of the legislative council use Diabetes mellitus complication status: with neurologic complications Diabetes mellitus complication detail: with unspecified neuropathy Qualified Code(s): E11.40 - Type 2 diabetes mellitus with diabetic neuropathy, unspecified (15) Hypertension: Goal blood pressure less than 140/91 Hg. We will uptitrate medication as per blood pressure monitoring. Status: Chronic Qualifiers: Hypertension type: primary hypertension Qualified Code(s): I10 - Essential (primary) hypertension (16) UTI (urinary tract infection): Urine culture consistent with Enterobacter. Sensitivities appreciated. Stop vancomycin, ceftriaxone.-Patient is perioperative for now continue with Zosyn. Will de-escalate to ceftriaxone postoperatively. Status: Acute (17) Major depressive disorder: Chronically on venlafaxine, Seroquel and mirtazapine was added in October or November Continue venlafaxine. Status: Chronic (18) Anxiety disorder: Chronically on clonazepam. Resume. Status: Chronic (19) History of alcohol dependence: No alcoholic drinks and last 2 months as per . She does not have liver cirrhosis far as he knows. She reports occaional beer drink. Suspected history of heavy consumption in the past. Status: Chronic (20) Moderate protein-calorie malnutrition: Secondary to poor oral intake and impact potentially of previous alcohol use P.o. intake is tolerating. Ensure clear with meals. Status: Acute Additional A&P Information Reported sarcoidosis Full code. Mechanical soft diet. Heparin for DVT prophylaxis. Protonix for PUD prophylaxis. Plan for day: Continue physical therapy, isolation precautions, replacing electrolytes, decrease dose of Neutra-Phos. Start on sodium bicarb and monitoring BMP and mag and phosphorus daily. Awaiting safe discharge planning. Discharge planning: Patient has been accepted at SNF. Awaiting off prior authorization. Attestations Medical Necessity Statement*: Requires further hospitalization for management of postoperative cares, post-ORIF, severe physical deconditioning, moderate protein energy malnutrition, refeeding syndrome while safe discharge planning is sought. Time Spent in Patient Care: 16 - 35 minutes (>than 50% of time spent in counselling and/or direct pt care on unit) . Coding Level of Care Code Acute Floor Tiling Professional for Chg Fwd Diagnoses COVID-19 U07.1 Intertrochanteric fracture of left hip S72.142A Encounter type: initial encounter Fracture type: closed Fracture alignment: displaced Postoperative state Z98.890 Refeeding syndrome E87.8 Electrolyte abnormality E87.8 Fall at home W19.XXXA; Y92.009 Encounter type: initial encounter Thyroid disorder E07.9 Acute encephalopathy G93.40 Ketoacidosis E87.2 Acute kidney injury N17.9 Lactic acidosis E87.2 High anion gap metabolic acidosis E87.2 Macrocytic anemia D53.9 Type 2 diabetes mellitus E11.40 Diabetes mellitus member of the legislative council insulin use: without member of the legislative council use Diabetes mellitus complication status: with neurologic complications Diabetes mellitus complication detail: with unspecified neuropathy Hypertension I10 Hypertension type: primary hypertension UTI (urinary tract infection) N39.0 Major depressive disorder F32.9 Anxiety disorder F41.9 History of alcohol dependence F10.21 Moderate protein-calorie malnutrition E44.0
[2021-01-27 17:08] LABS: Glucose Point of Care 47 mg/dL (70-110)
[2021-01-27 17:08] LABS: Glucose Point of Care 60 mg/dL (70-110)
[2021-01-27 18:02] LABS: Glucose Point of Care 215 mg/dL (70-110)
[2021-01-27] MEDS: quetiapine 25 mg Tablet PO (20:40)
[2021-01-27 21:04] LABS: Glucose Point of Care 139 mg/dL (70-110)
[2021-01-28 03:33] LABS: Magnesium 1.6 mg/dL (1.7-2.3); Phosphorus 3.1 mg/dL (2.5-4.5)
[2021-01-28 03:37] LABS: Alanine Aminotransferase 14 U/L (0-33); Albumin Level 2.4 g/dL (3.5-5.2); Alkaline Phosphatase 93 IU/L (35-105); Aspartate Amino Transferase 25 U/L (0-32); Blood Urea Nitrogen 5 mg/dL (8-23); Calcium 7.9 mg/dL (8.5-10.5); Carbon Dioxide 18 mmol/L (22-29); Chloride 100 mmol/L (98-107); Globulin 2.8 g/dL (1.3-4.6); Glomerular Filtration Rate 356.5 mL/min (90-130); Glucose 74 mg/dL (65-115); Osmolality Calculated 276 mOsm/kg (285-295); Sodium 135 mmol/L (136-145); Total Bilirubin 1.2 mg/dL (0.15-1.2); Total Protein 5.2 g/dL (6.6-8.7)
[2021-01-28 03:48] VITALS: BP 149/95; PULSE 110; RESP 20; TEMP 36.7; O2SAT 100
[2021-01-28] MEDS: sucralfate 1 gm/10 mL Oral Liq UDC PO ×4 (06:01→21:13)
[2021-01-28 06:37] LABS: Glucose Point of Care 123 mg/dL (70-110)
[2021-01-28 07:45] VITALS: BP 149/91; PULSE 115; RESP 18; TEMP 36.6; O2SAT 100
[2021-01-28] MEDS: enoxaparin 40 mg/0.4 mL Syringe SUBCUT (09:42)
[2021-01-28] MEDS: gabapentin 100 mg Capsule 200 MG PO ×3 (09:43→21:13)
[2021-01-28] MEDS: sodium bicarbonate 650 mg Tablet PO ×3 (09:43→21:14)
[2021-01-28] MEDS: venlafaxine ER (24HR) 75 mg Capsule PO (09:43)
[2021-01-28] MEDS: calcium carb-vit d 600mg/400unit 1 Tablet 1 EACH PO ×2 (09:43→17:59)
[2021-01-28] MEDS: metoprolol tartrate 25 mg Tablet PO ×2 (09:43→21:14)
[2021-01-28] MEDS: potassium chloride ER 20 mEq Tablet 40 MEQ PO (09:43)
[2021-01-28] MEDS: magnesium oxide 400 mg tablet PO ×2 (09:43→17:59)
[2021-01-28] MEDS: acetaminophen 325 mg Tablet 650 MG PO (09:43)
[2021-01-28] MEDS: ascorbic acid 500 mg Tablet 1000 MG PO ×2 (09:43→17:59)
[2021-01-28] MEDS: phosphorus 250 mg Tablet PO (09:43)
[2021-01-28] MEDS: zinc gluconate 50 mg Tablet PO (09:43)
[2021-01-28] MEDS: ferrous sulfate EC 325 mg Tablet PO ×2 (09:43→17:59)
[2021-01-28] MEDS: pantoprazole 40 mg SDV IVP ×2 (09:44→21:14)
[2021-01-28 11:15] VITALS: BP 120/80; PULSE 97; RESP 18; TEMP 36.8; O2SAT 96
[2021-01-28] MEDS: lisinopril 10 mg Tablet PO (11:38)
[2021-01-28] MEDS: CLONazepam 1 mg Tablet 0.5 MG PO (11:38)
[2021-01-28 12:27] LABS: Glucose Point of Care 207 mg/dL (70-110)
--- NOTE | 2021-01-28 13:39 | PC.SOCIAL ---
IMM Update pg 2 of IMM updated and reviewed w/ patient. Copy provided.
--- NOTE | 2021-01-28 14:15 | P.PN_ITS ---
Subjective Subjective: Interval history: No recurrence overnight. Patient continues to remain confused. On asking further question is alert and oriented to self, place, year but continues to remain forgetful and has tangential talks. Declined to work with physical therapy today. On examination laying in bed. States does not want to work with physical therapy today but would want to sit up if possible. Vitals/I&O/Wt Last Vital Signs Temp 98.0 F 01/28/21 03:48 Pulse 110 H 01/28/21 03:48 Resp 20 H 01/28/21 03:48 BP 149/95 01/28/21 03:48 Pulse Ox 100 01/28/21 03:48 01/27/21 01/28/21 01/28/21 22:59 06:59 14:59 Intake Total 360 / 770 50 / 820 Balance 360 / 770 50 / 820 Weight last 48 hrs Weight 59.693 kg Weight 59.874 kg Physical Exam Narrative: EXAM NARRATIVE: General: No acute distress, AO x2-3, slow to respond, bruise present on her right arm secondary to infiltration of blood, having occasional tangential talks during regular conversation HEENT: PERRLA, pupils bilaterally equal and reactive Chest: Normal vesicular breath sounds, no added sounds, equal good air entry bilaterally CVS: S1-S2 regular, no murmurs, no tachycardia, no gallops, no rubs Abdomen: Soft, nontender, no organomegaly, bowel sounds present Neuro: No focal deficits, no facial deformity, AO x3, power 5/5 in all limbs Const: COMMON NORMALS: no acute distress GENERAL APPEARANCE: cooperative and comfortable ORIENTATION/CONSCIOUSNESS: Yes awake and Yes confused (Less t howell yesterday, but still confused) HENMT: COMMON NORMALS: oropharynx normal Neck/C-Spine: COMMON NORMALS: no JVD Resp: COMMON NORMALS: normal respiratory effort and clear to auscultation bilaterally AUSCULTATION: clear to auscultation bilaterally OTHER: Generally weak. Cardio: COMMON NORMALS: no JVD, regular rhythm, S1 normal heart sound present, S2 normal heart sound present and No murmurs present (Cardio) RHYTHM: regular rhythm HEART SOUNDS: S1 normal heart sound present and S2 normal heart sound present GI: COMMON NORMALS: Normal to inspection, nondistended, normoactive bowel sounds present, Soft to palpation and non-tender PALPATION: Yes Soft to palpation Extremity: COMMON NORMALS: no joint enlargement and no pedal edema Neuro: COMMON NORMALS: moves all extremities Skin: COMMON NORMALS: no rashes or lesions noted GENERAL SKIN EXAM: no rashes or lesions noted Urinary Catheter Management^: Voss: Cath Placed During This Visit: yes, but has since been removed by the nurse Reason for Continuing Indwelling Catheter: Decision to DC Catheter Urinary Catheter Date of Insertion: 01/18/21 Urinary Catheter Time of Insertion: 19:15 Date Urinary Catheter Removed: 01/25/21 Time Urinary Catheter Discontinued: 16:00 Data : 01/27/21 05:55 01/28/21 01:53 A&P Assessment and plan (1) COVID-19: Asymptomatic. On room air. PCR positive 01/24. Post monoclonal antibody infusion on 01/24. Vitamin C, zinc. Monitor oxygen supplementation. To remain under isolation till 02/02. Status: Acute (2) Intertrochanteric fracture of left hip: Appreciate orthopedics recommendations. Post ORIF Physical therapy, Lovenox for anticoagulation, Status: Acute Qualifiers: Encounter type: initial encounter Fracture type: closed Fracture alignment: displaced Qualified Code(s): S72.142A - Displaced intertrochanteric fracture of left femur, initial encounter for closed fracture (3) Postoperative state: Status: Acute (4) Refeeding syndrome: Monitor electrolytes. Continue with oral magnesium and potassium suppl ement, Neutra-Phos. Decrease dose of Neutra-Phos to once daily. Start on sodium bicarb 3 times a day. Monitor electrolytes daily. Status: Acute (5) Electrolyte abnormality: Status: Acute (6) Fall at home: Several days ago Status: Acute Qualifiers: Encounter type: initial encounter Qualified Code(s): W19.XXXA - Unspecified fall, initial encounter; Y92.009 - Unspecified place in unspecified non-institutional (private) residence as the place of occurrence of the external cause (7) Thyroid disorder: Repeat thyroid panel within normal limits. Thyroid ultrasound appreciated. Thyroid peroxidase antibodies. Repeat thyroid panel. Status: Ruled-out (8) Acute encephalopathy: Metabolic encephalopathy: Multifactorial. Most likely combination findings of metabolic acidosis, UTI, acute kidney injury. Resolving. Seems to be back to her baseline mentation. Baseline mentation seems to be poor from chronic alcohol abuse. Cannot rule out Wernicke's encephalopathy. Status: Acute (9) Ketoacidosis: Most likely a combination of starvation ketosis along with semaglutide induced diabetic ketosis. Anion gap stable. Status: Acute (10) Acute kidney injury: Resolved. IV fluid as above. Medical reconciliation done for nephrotoxic drugs. Continue to monitor BMP daily. Status: Acute (11) Lactic acidosis: Resolved. Most likely a combination of starvation ketosis along with possibility of Metformin induced lactic acidosis in setting of baseline possible chronic liver disease. Less likely secondary to UTI. Resolved. Status: Acute (12) High anion gap metabolic acidosis: As above. Status: Acute (13) Macrocytic anemia: Postponement of blood transfusion. Hemoglobin stable. Appreciate vitamin B12, folate levels. Homocystine level pending. Protonix twice daily. Oral iron supplementation. Add Carafate before meals and at bedtime. Patient would most likely need EGD and colonoscopy as an outpatient. Status: Acute (14) Type 2 diabetes mellitus: Insulin sliding scale. Status: Chronic Qualifiers: Diabetes mellitus terminal operator insulin use: without terminal operator use Diabetes mellitus complication status: with neurologic complications Diabetes mellitus complication detail: with unspecified neuropathy Qualified Code(s): E11.40 - Type 2 diabetes mellitus with diabetic neuropathy, unspecified (15) Hypertension: Goal blood pressure less than 140/91 Hg. We will uptitrate medication as per blood pressure monitoring. Status: Chronic Qualifiers: Hypertension type: primary hypertension Qualified Code(s): I10 - Essential (primary) hypertension (16) UTI (urinary tract infection): Urine culture consistent with Enterobacter. Sensitivities appreciated. Stop vancomycin, ceftriaxone.-Patient is perioperative for now continue with Zos yn. Will de-escalate to ceftriaxone postoperatively. Status: Acute (17) Major depressive disorder: Chronically on venlafaxine, Seroquel and mirtazapine was added in October or November Continue venlafaxine. Status: Chronic (18) Anxiety disorder: Chronically on clonazepam. Resume. Status: Chronic (19) History of alcohol dependence: No alcoholic drinks and last 2 months as per . She does not have liver cirrhosis far as he knows. She reports occaional beer drink. Suspected history of heavy consumption in the past. Status: Chronic (20) Moderate protein-calorie malnutrition: Secondary to poor oral intake and impact potentially of previous alcohol use P.o. intake is tolerating. Ensure clear with meals. Status: Acute Additional A&P Information Reported sarcoidosis Full code. Mechanical soft diet. Heparin for DVT prophylaxis. Protonix for PUD prophylaxis. Plan for day: Continue physical therapy, isolation precautions, replacing electrolytes, decrease dose of Neutra-Phos. Start on sodium bicarb and monitoring BMP and mag and phosphorus daily. Awaiting safe discharge planning. Discharge planning: Patient has been accepted at SNF. Awaiting off prior authorization. Attestations Medical Necessity Statement*: Requires further hospitalization for management of postoperative care, post-ORIF while safe discharge planning is sought Time Spent in Patient Care: less than 15 minutes (>than 50% of time spent in counselling and/or direct pt care on unit) . Coding Level of Care Code Acute Packaging Technician for g Fwd Diagnoses COVID-19 U07.1 Intertrochanteric fracture of left hip S72.142A Encounter type: initial encounter Fracture type: closed Fracture alignment: displaced Postoperative state Z98.890 Refeeding syndrome E87.8 Electrolyte abnormality E87.8 Fall at home W19.XXXA; Y92.009 Encounter type: initial encounter Thyroid disorder E07.9 Acute encephalopathy G93.40 Ketoacidosis E87.2 Acute kidney injury N17.9 Lactic acidosis E87.2 High anion gap metabolic acidosis E87.2 Macrocytic anemia D53.9 Type 2 diabetes mellitus E11.40 Diabetes mellitus terminal operator insulin use: without terminal operator use Diabetes mellitus complication status: with neurologic complications Diabetes mellitus complication detail: with unspecified neuropathy Hypertension I10 Hypertension type: primary hypertension UTI (urinary tract infection) N39.0 Major depressive disorder F32.9 Anxiety disorder F41.9 History of alcohol dependence F10.21 Moderate protein-calorie malnutrition E44.0
[2021-01-28 15:45] VITALS: BP 135/85; PULSE 96; RESP 16; TEMP 36.8; O2SAT 97
[2021-01-28 16:58] LABS: Glucose Point of Care 163 mg/dL (70-110)
[2021-01-28 20:00] VITALS: BP 132/80; PULSE 90; RESP 16; TEMP 36.7; O2SAT 96
[2021-01-28] MEDS: quetiapine 25 mg Tablet PO (21:14)
[2021-01-28] MEDS: atorvastatin 40 mg Tablet 20 MG PO (21:14)
[2021-01-28 21:35] LABS: Glucose Point of Care 229 mg/dL (70-110)
[2021-01-28] MEDS: insulin lispro 100 unit/1 mL SUBCUT (22:01)
[2021-01-29] VITALS: BP 128/76; PULSE 89; RESP 16; TEMP 36.8; O2SAT 95
[2021-01-29 03:34] LABS: Alanine Aminotransferase 14 U/L (0-33); Albumin Level 2.4 g/dL (3.5-5.2); Alkaline Phosphatase 121 IU/L (35-105); Anion Gap 16.8 (5-19); Aspartate Amino Transferase 23 U/L (0-32); Blood Urea Nitrogen 6 mg/dL (8-23); Calcium 7.7 mg/dL (8.5-10.5); Carbon Dioxide 22 mmol/L (22-29); Chloride 100 mmol/L (98-107); Globulin 2.9 g/dL (1.3-4.6); Glomerular Filtration Rate 223.3 mL/min (90-130); Glucose 117 mg/dL (65-115); Osmolality Calculated 279 mOsm/kg (285-295); Potassium 3.8 mmol/L (3.5-5.1); Sodium 135 mmol/L (136-145); Total Bilirubin 1.1 mg/dL (0.15-1.2); Total Protein 5.3 g/dL (6.6-8.7)
[2021-01-29 04:00] VITALS: BP 124/68; PULSE 80; RESP 16; TEMP 36.7; O2SAT 93
[2021-01-29] MEDS: sucralfate 1 gm/10 mL Oral Liq UDC PO ×4 (06:30→20:34)
[2021-01-29] MEDS: enoxaparin 40 mg/0.4 mL Syringe SUBCUT (06:30)
[2021-01-29 06:52] LABS: Glucose Point of Care 145 mg/dL (70-110)
[2021-01-29 08:00] VITALS: BP 137/83; PULSE 102; RESP 16; TEMP 36.5; O2SAT 92
[2021-01-29] MEDS: venlafaxine ER (24HR) 75 mg Capsule PO (08:40)
[2021-01-29] MEDS: lisinopril 10 mg Tablet PO (08:40)
[2021-01-29] MEDS: ferrous sulfate EC 325 mg Tablet PO ×2 (08:40→17:42)
[2021-01-29] MEDS: sodium bicarbonate 650 mg Tablet PO ×3 (08:40→20:33)
[2021-01-29] MEDS: gabapentin 100 mg Capsule 200 MG PO ×3 (08:40→20:33)
[2021-01-29] MEDS: magnesium oxide 400 mg tablet PO ×2 (08:40→17:42)
[2021-01-29] MEDS: phosphorus 250 mg Tablet PO (08:40)
[2021-01-29] MEDS: zinc gluconate 50 mg Tablet PO (08:40)
[2021-01-29] MEDS: ascorbic acid 500 mg Tablet 1000 MG PO ×2 (08:41→17:42)
[2021-01-29] MEDS: calcium carb-vit d 600mg/400unit 1 Tablet 1 EACH PO ×2 (08:41→17:42)
[2021-01-29] MEDS: pantoprazole 40 mg SDV IVP ×2 (08:41→20:34)
[2021-01-29] MEDS: metoprolol tartrate 25 mg Tablet PO ×2 (08:41→20:33)
[2021-01-29] MEDS: potassium chloride ER 20 mEq Tablet 40 MEQ PO (08:41)
[2021-01-29] MEDS: insulin lispro 100 unit/1 mL SUBCUT ×3 (08:42→21:10)
[2021-01-29 12:03] VITALS: BP 159/89; PULSE 84; RESP 18; TEMP 36.7; O2SAT 94
[2021-01-29 12:07] LABS: Glucose Point of Care 179 mg/dL (70-110)
[2021-01-29 15:48] VITALS: BP 161/88; PULSE 99; RESP 16; TEMP 36.7; O2SAT 99
[2021-01-29 17:10] LABS: Glucose Point of Care 124 mg/dL (70-110)
[2021-01-29 19:46] VITALS: BP 125/74; PULSE 67; RESP 17; TEMP 37.1; O2SAT 97
[2021-01-29 20:31] LABS: Glucose Point of Care 185 mg/dL (70-110)
[2021-01-29] MEDS: atorvastatin 40 mg Tablet 20 MG PO (20:33)
[2021-01-29] MEDS: quetiapine 25 mg Tablet PO (20:33)
[2021-01-29] MEDS: CLONazepam 1 mg Tablet 0.5 MG PO (20:54)
--- NOTE | 2021-01-29 21:07 | P.PN_ITS ---
Subjective Subjective: Interval history: Reports she is doing all right. Tells me occasionally she feels blue, but not currently. Awake and alert. Comfortable. Not oriented Vitals/I&O/Wt Last Vital Signs Temp 98.8 F 01/29/21 19:46 Pulse 67 01/29/21 19:46 Resp 17 01/29/21 19:46 BP 125/74 01/29/21 19:46 Pulse Ox 97 01/29/21 19:46 01/29/21 01/29/21 01/29/21 06:59 14:59 22:59 Intake Total 240 / 840 Balance 240 / 840 Weight last 48 hrs Weight 56.245 kg Weight 59.693 kg Physical Exam Const: COMMON NORMALS: no acute distress and alert; negative for patient oriented x3 GENERAL APPEARANCE: cooperative and comfortable ORIENTATION/CONSCIOUSNESS: Yes awake HENMT: COMMON NORMALS: oropharynx normal Neck/C-Spine: COMMON NORMALS: no JVD Resp: COMMON NORMALS: normal respiratory effort and clear to auscultation bilaterally AUSCULTATION: clear to auscultation bilaterally Cardio: COMMON NORMALS: no JVD, regular rhythm, S1 normal heart sound present, S2 normal heart sound present and No murmurs present (Cardio) RHYTHM: regular rhythm HEART SOUNDS: S1 normal heart sound present and S2 normal heart sound present GI: COMMON NORMALS: Normal to inspection, nondistended, normoactive bowel sounds present, Soft to palpation and non-tender PALPATION: Yes Soft to palpation Extremity: COMMON NORMALS: no joint enlargement and no pedal edema Neuro: COMMON NORMALS: moves all extremities; negative for patient oriented x3 SENSORIUM/ORIENTATION: Yes alert Skin: COMMON NORMALS: no rashes or lesions noted GENERAL SKIN EXAM: no rashes or lesions noted Urinary Catheter Management^: Voss: Cath Placed During This Visit: yes, but has since been removed by the nurse Reason for Continuing Indwelling Catheter: Decision to DC Catheter Urinary Catheter Date of Insertion: 01/18/21 Urinary Catheter Time of Insertion: 19:15 Date Urinary Catheter Removed: 01/25/21 Time Urinary Catheter Discontinued: 16:00 Data : 01/27/21 05:55 01/29/21 02:15 A&P Assessment and plan (1) Intertrochanteric fracture of left hip: Appreciate orthopedics recommendations. Post ORIF Physical therapy, Lovenox for anticoagulation, Continue arrangements for rehabilitation after discharge Status: Acute Qualifiers: Encounter type: initial encounter Fracture type: closed Fracture alignment: displaced Qualified Code(s): S72.142A - Displaced intertrochanteric fracture of left femur, initial encounter for closed fracture (2) Postoperative state: Status: Acute (3) COVID-19: Doing well on room air. Continue to monitor condition. Supportive care. Asymptomatic. On room air. PCR positive 01/24. Post monoclonal antibody infusion on 01/24. Vitamin C, zinc. Monitor oxygen supplementation. To remain under isolation till 02/02. Status: Acute (4) Acute encephalopathy: Given he remains awake, alert, comfortable. Concern is for Warnicke ence phalopathy given improvement of metabolic abnormalities. Most likely combination findings of metabolic acidosis, UTI, acute kidney injury. Resolving. Seems to be back to her baseline mentation. Baseline mentation seems to be poor from chronic alcohol abuse. Cannot rule out Wernicke's encephalopathy. Thiamine Status: Acute (5) Refeeding syndrome: Monitor electrolytes. Continue with oral magnesium and potassium supplement, Neutra-Phos. Decrease dose of Neutra-Phos to once daily. Start on sodium bicarb 3 times a day. Monitor electrolytes daily. Status: Acute (6) Electrolyte abnormality: Status: Acute (7) Fall at home: Several days ago Status: Acute Qualifiers: Encounter type: initial encounter Qualified Code(s): W19.XXXA - Unspecified fall, initial encounter; Y92.009 - Unspecified place in unspecified non-institutional (private) residence as the place of occurrence of the external cause (8) Thyroid disorder: Repeat thyroid panel within normal limits. Thyroid ultrasound appreciated. Thyroid peroxidase antibodies normal. Status: Ruled-out (9) Ketoacidosis: Resolved. Most likely a combination of starvation ketosis along with semaglutide induced diabetic ketosis. Anion gap stable. Status: Acute (10) Acute kidney injury: Resolved. Off IV fluid. Medical reconciliation done for nephrotoxic drugs. Continue to monitor BMP daily. Status: Acute (11) Lactic acidosis: Resolved. Most likely a combination of starvation ketosis along with possibility of Metformin induced lactic acidosis in setting of baseline possible chronic liver disease. Less likely secondary to UTI. Status: Acute (12) High anion gap metabolic acidosis: As above. Status: Acute (13) Macrocytic anemia: Postponement of blood transfusion. Hemoglobin stable. Appreciate vitamin B12, folate levels. MMA could not be performed. Protonix twice daily. Oral iron supplementation. Carafate before meals and at bedtime. Patient would most likely need EGD and colonoscopy as an outpatient. Status: Acute (14) Type 2 diabetes mellitus: Insulin sliding scale. Status: Chronic Qualifiers: Diabetes mellitus termite exterminator helper insulin use: without group home use Diabetes mellitus complication status: with neurologic complications Diabetes mellitus complication detail: with unspecified neuropathy Qualified Code(s): E11.40 - Type 2 diabetes mellitus with diabetic neuropathy, unspecified (15) Hypertension: Goal blood pressure less than 140/91 Hg. We will uptitrate medication as per blood pressure monitoring. Status: Chronic Qualifiers: Hypertension type: primary hypertension Qualified Code(s): I10 - Essential (primary) hypertension (16) UTI (urinary tract infection): Urine culture consistent with Enterobacter. Completed vancomycin, ceftriaxone. Status: Acute (17) Major depressive disorder: Chronically on venlafaxine, Seroquel and mirtazapine was added in October or November Continue venlafaxine. Status: Chronic (18) Anxiety disorder: Chronically on clonazepam. Status: Chronic (19) History of alcohol dependence: No alcoholic drinks and last 2 months as per . She does not have liver cirrhosis far as he knows. She reports occaional beer drink. Suspected history of heavy consumption in the past. Status: Chronic (20) Moderate protein-calorie malnutrition: Secondary to poor oral intake and impact potentially of previous alcohol use P.o. intake is tolerating. Ensure clear with meals. Status: Acute Additional A&P Information Reported sarcoidosis Attestations Medical Necessity Statement*: Continue admission pending prior authorization to proceed to rehabilitation at SNF. Coding Level of Care Code Acute [facility] T[facility] for [facility] Fwd Diagnoses Intertrochanteric fracture of left hip S72.142A Encounter type: initial encounter Fracture type: closed Fracture alignment: displaced Postoperative state Z98.890 COVID-19 U07.1 Acute encephalopathy G93.40 Refeeding syndrome E87.8 Electrolyte abnormality E87.8 Fall at home W19.XXXA; Y92.009 Encounter type: initial encounter Thyroid disorder E07.9 Ketoacidosis E87.2 Acute kidney injury N17.9 Lactic acidosis E87.2 High anion gap metabolic acidosis E87.2 Macrocytic anemia D53.9 Type 2 diabetes mellitus E11.40 Diabetes mellitus termite exterminator helper insulin use: without group home use Diabetes mellitus complication status: with neurologic complications Diabetes mellitus complication detail: with unspecified neuropathy Hypertension I10 Hypertension type: primary hypertension UTI (urinary tract infection) N39.0 Major depressive disorder F32.9 Anxiety disorder F41.9 History of alcohol dependence F10.21 Moderate protein-calorie malnutrition E44.0
[2021-01-30 03:21] LABS: Alanine Aminotransferase 12 U/L (0-33); Albumin Level 2.5 g/dL (3.5-5.2); Alkaline Phosphatase 133 IU/L (35-105); Anion Gap 16.9 (5-19); Aspartate Amino Transferase 17 U/L (0-32); Blood Urea Nitrogen 5 mg/dL (8-23); Calcium 7.5 mg/dL (8.5-10.5); Carbon Dioxide 22 mmol/L (22-29); Chloride 103 mmol/L (98-107); Globulin 2.7 g/dL (1.3-4.6); Glomerular Filtration Rate 223.3 mL/min (90-130); Glucose 130 mg/dL (65-115); Osmolality Calculated 285 mOsm/kg (285-295); Potassium 3.9 mmol/L (3.5-5.1); Sodium 138 mmol/L (136-145); Total Bilirubin 1.1 mg/dL (0.15-1.2); Total Protein 5.2 g/dL (6.6-8.7)
[2021-01-30 04:00] VITALS: BP 116/64; PULSE 103; RESP 17; TEMP 36.9; O2SAT 98
[2021-01-30] MEDS: sucralfate 1 gm/10 mL Oral Liq UDC PO ×2 (06:45→11:13)
[2021-01-30] MEDS: enoxaparin 40 mg/0.4 mL Syringe SUBCUT (06:45)
[2021-01-30 06:49] LABS: Glucose Point of Care 160 mg/dL (70-110)
[2021-01-30 07:34] VITALS: BP 133/79; PULSE 113; RESP 18; TEMP 37.1; O2SAT 99
[2021-01-30] MEDS: zinc gluconate 50 mg Tablet PO (09:04)
[2021-01-30] MEDS: sodium bicarbonate 650 mg Tablet PO ×2 (09:04→15:30)
[2021-01-30] MEDS: calcium carb-vit d 600mg/400unit 1 Tablet 1 EACH PO (09:04)
[2021-01-30] MEDS: metoprolol tartrate 25 mg Tablet PO (09:04)
[2021-01-30] MEDS: ascorbic acid 500 mg Tablet 1000 MG PO (09:04)
[2021-01-30] MEDS: gabapentin 100 mg Capsule 200 MG PO ×2 (09:04→15:30)
[2021-01-30] MEDS: lisinopril 10 mg Tablet PO (09:05)
[2021-01-30] MEDS: ferrous sulfate EC 325 mg Tablet PO (09:05)
[2021-01-30] MEDS: potassium chloride ER 20 mEq Tablet 40 MEQ PO (09:05)
[2021-01-30] MEDS: insulin lispro 100 unit/1 mL SUBCUT ×2 (09:05→12:14)
[2021-01-30] MEDS: thiamine 100 mg Tablet PO (09:05)
[2021-01-30] MEDS: magnesium oxide 400 mg tablet PO (09:06)
[2021-01-30] MEDS: phosphorus 250 mg Tablet PO (09:06)
[2021-01-30] MEDS: pantoprazole 40 mg SDV IVP (09:06)
[2021-01-30] MEDS: venlafaxine ER (24HR) 75 mg Capsule PO (09:21)
--- NOTE | 2021-01-30 09:21 | PC.SOCIAL ---
IMM Update Pg. 2 of IMM updated and reviewed with patient, who verbalized understanding. Copy provided.
[2021-01-30] MEDS: acetaminophen 325 mg Tablet 650 MG PO (11:18)
[2021-01-30] MEDS: CLONazepam 1 mg Tablet 0.5 MG PO (11:18)
[2021-01-30 11:38] VITALS: BP 137/83; PULSE 85; RESP 16; TEMP 36.9; O2SAT 94
[2021-01-30 12:19] LABS: Glucose Point of Care 168 mg/dL (70-110)
--- NOTE | 2021-01-30 13:49 | PM.DCS ---
Discharge Providers Date of Admission: 01/19/21 02:09 Date of Discharge: January 30, 2021 Attending Provider at Admission: Ana Tabor MD Attending Provider at Discharge: Antonio Morocho Primary Care Provider: Geeta Anders-Breanne Diagnoses at Discharge Discharge Diagnosis (1) Intertrochanteric fracture of left hip: Status: Acute Qualifiers: Encounter type: initial encounter Fracture type: closed Fracture alignment: displaced Qualified Code(s): S72.142A - Displaced intertrochanteric fracture of left femur, initial encounter for closed fracture (2) Postoperative state: Status: Acute (3) COVID-19: Status: Acute (4) Acute encephalopathy: Status: Acute (5) Refeeding syndrome: Status: Acute (6) Electrolyte abnormality: Status: Acute (7) Fall at home: Status: Acute Qualifiers: Encounter type: initial encounter Qualified Code(s): W19.XXXA - Unspecified fall, initial encounter; Y92.009 - Unspecified place in unspecified non-institutional (private) residence as the place of occurrence of the external cause (8) Thyroid disorder: Status: Ruled-out (9) Ketoacidosis: Status: Acute (10) Acute kidney injury: Status: Acute (11) Lactic acidosis: Status: Acute (12) High anion gap metabolic acidosis: Status: Acute (13) Macrocytic anemia: Status: Acute (14) Type 2 diabetes mellitus: Status: Chronic Qualifiers: Diabetes mellitus terminal operations supervisor insulin use: without terminal operations supervisor use Diabetes mellitus complication status: with neurologic complications Diabetes mellitus complication detail: with unspecified neuropathy Qualified Code(s): E11.40 - Type 2 diabetes mellitus with diabetic neuropathy, unspecified (15) Hypertension: Status: Chronic Qualifiers: Hypertension type: primary hypertension Qualified Code(s): I10 - Essential (primary) hypertension (16) UTI (urinary tract infection): Status: Acute (17) Major depressive disorder: Status: Chronic (18) Anxiety disorder: Status: Chronic (19) History of alcohol dependence: Status: Chronic (20) Moderate protein-calorie malnutrition: Status: Acute Reason for Visit Reason for Visit: FELL/L HIP PAIN Hospital Course Hospital Course 65-year-old lady with history of alcohol use disorder, reportedly had stopped any alcohol consumption recently, admitted to the hospital on 01/18 after a fall at home few days previously, with confusion, initially with multiple metabolic abnormalities including starvation ketoacidosis, severe lactic acidosis, anion and non-anion gap metabolic acidosis, hyperosmolality, although denied consumption of any antifreeze or other substances, with acute metabolic encephalopathy, finding of intertrochanteric left hip fracture, acute anemia requiring 1 unit PRBC transfusion, microcytic and iron deficiency anemia, with normal B12 and folic acid levels, MMA was requested but could not be obtained due to inadequate sample, please assess on outpatient basis. With regards to MAMTA with positive Hemoccult, please refer for additional assessment by endoscopic evaluation once her condition otherwise continue to improve. Acute encephalopathy overall improved with improvement of metabolic abnormalities, transiently treated with insulin drip with ketoacidosis consider possibly secondary diabetes in addition to starvation ketosis, received IV hydration, received multiple electrolyte replacements with noted refeeding syndrome, including replacement of phosphorus, transiently on sodium bicarb as well. Acute kidney injury noted on presentation resolved. Metabolic acidosis improved. With residual memory deficits, concern for Warnicke encephalopathy as she is otherwise stable. Continues on thiamine. Multivitamin. Please reassess mental status for continued improvement of encephalopathy, otherwise please refer for additional assessment to neurology. Given hip fracture status post repair, overall deconditioning, slowly improving encephalopathy, would benefit from additional rehabilitation for which was currently accepted to group home facility, transferring today, on screening test tested positive for COVID-19, although otherwise asymptomatic and not requiring any oxygen. Due to risk of severe illness received treatment with monoclonal antibodies on 01/24. 90 days after treatment, please consider COVID-19 vaccination. During hospitalization also treated for urinary tract infection, subsequently growing Enterobacter resistant to Augmentin, Unasyn, cefuroxime, intermediate sensitivity to imipenem and tetracycline. Thyroid abnormality, but subsequently with normalization of thyroid studies, unremarkable thyroid ultrasound with incidentally noted nonspecific anterior cervical lymph nodes. Additional assessment included head CT, C-spine CT and CT chest abdomen pelvis. Continue to encourage abstinence from alcohol. Poor oral intake with moderate protein-calorie malnutrition, encourage regular diet oral intake. Ensure clear with meals. Reported history of sarcoidosis. Stage 2 pressure area: continue foam dressing, turn, optimize nutrition. Physical Exam Const: COMMON NORMALS: no acute distress and alert; negative for patient oriented x3 GENERAL APPEARANCE: cooperative and comfortable ORIENTATION/CONSCIOUSNESS: Yes awake HENMT: COMMON NORMALS: oropharynx normal Neck/C-Spine: COMMON NORMALS: no JVD Resp: COMMON NORMALS: normal respiratory effort and clear to auscultation bilaterally AUSCULTATION: clear to auscultation bilaterally OTHER: Generally weak. Cardio: COMMON NORMALS: no JVD, regular rhythm, S1 normal heart sound present, S2 normal heart sound present and No murmurs present (Cardio) RHYTHM: regular rhythm HEART SOUNDS: S1 normal heart sound present and S2 normal heart sound present GI: COMMON NORMALS: Normal to inspection, nondistended, normoactive bowel sounds present, Soft to palpation and non-tender PALPATION: Yes Soft to palpation Extremity: COMMON NORMALS: no joint enlargement and no pedal edema Neuro: COMMON NORMALS: moves all extremities; negative for patient oriented x3 SENSORIUM/ORIENTATION: Yes alert Skin: COMMON NORMALS: no rashes or lesions noted GENERAL SKIN EXAM: no rashes or lesions noted Urinary Catheter Management^: Voss: Cath Placed During This Visit: yes, but has since been removed by the nurse Reason for Continuing Indwelling Catheter: Decision to DC Catheter Urinary Catheter Date of Insertion: 01/18/21 Urinary Catheter Time of Insertion: 19:15 Date Urinary Catheter Removed: 01/25/21 Time Urinary Catheter Discontinued: 16:00 Discharge Data Data Completed and Pending: Completed Studies During Hospitalization Category Date Time Status CT cervical spin wo con* [id number] Urge nt Cat Scan 01/18/21 16:[address] chest abd pel wo con Urgent Cat Scan 01/18/21 16:[address] head wo con* 7 0450 Urgent Cat Scan 01/18/21 16:54 Completed XR chest 1V josé miguel ble [id number] Urgent Exams 01/18/21 Completed XR femur LT min 2 V* [id number] Urgent Exams 01/18/21 16:54 Completed XR hip LT 1V wo/w pel [id number] Routine Exams 01/22/21 19:12 Completed XR pelvis 1-2V* 7 2170 Urgent Exams 01/18/21 19:04 Completed US thyroid [id number] Routine Ultrasound 01/22/21 14:35 Completed Labs from last 24 hours 01/30/21 01/30/21 01/30/21 11:36 06:47 01:45 Sodium 138 Potassium 3.9 Chloride 103 Carbon Dioxide 22 Anion Gap 16.9 BUN 5 L Creatinine 0.3 L GFR Calculation 223.3 H Glucose 130 H POC Glucose 168 H 160 H Calculated Osmolal ity 285 Calcium 7.5 L Total Bilirubin 1.1 AST 17 ALT 12 Alkaline Phosphata se 133 H Total Protein 5.2 L Albumin 2.5 L Globulin 2.7 01/29/21 01/29/21 20:14 16:45 Sodium Potassium Chloride Carbon Dioxide Anion Gap BUN Creatinine GFR Calculation Glucose POC Glucose 185 H 124 H Calculated Osmolal ity Calcium Total Bilirubin AST ALT Alkaline Phosphata se Total Protein Albumin Globulin Vitals: Last Vital Signs Temp 98.5 F 01/30/21 11:38 Pulse 85 01/30/21 11:38 Resp 16 01/30/21 11:38 BP 137/83 01/30/21 11:38 Pulse Ox 94 01/30/21 11:38 Discharge Plan Discharge Patient Disposition: Xfer SNF Condition: Stable Prescriptions: New gabapentin 100 mg Capsule 200 mg PO TID Qty: 90 RF: 0 ferrous sulfate 325 mg (65 mg iron) Tablet,Delayed Release (Dr/Ec) 325 mg PO EVERY OTHER DAY Qty: 90 RF: 0 metoprolol tartrate 25 mg Tablet 25 mg PO BID@0900,2100 Qty: 180 RF: 0 Vitamin B-1 (mononitrate) 100 mg Tablet 100 mg PO DAILY Qty: 90 RF: 0 Continued biotin 10,000 mcg capsule 10,000 mcg PO DAILY RF: 0 calcium citrate-vitamin D3 [Calcium Citrate + D] 315 mg-5 mcg (200 unit) tablet 1 tab PO DAILY RF: 0 coenzyme Q10 [Co Q-10] 10 mg capsule 10 mg PO TID RF: 0 fluticasone propionate [Allergy Relief (fluticasone)] 50 mcg/actuation spray,suspension 1 spray intranasal DAILY RF: 0 furosemide 20 mg tablet 20 mg PO DAILY RF: 0 melatonin 10 mg capsule 10 mg PO BEDTIME RF: 0 metformin 500 mg tablet 1,000 mg PO BID RF: 0 Complete Multivitamin Tablet 1 tab PO DAILY RF: 0 pantoprazole 40 mg tablet,delayed release (DR/EC) 40 mg PO DAILY RF: 0 simvastatin 40 mg tablet 40 mg PO DAILY RF: 0 venlafaxine 150 mg capsule,extended release 24hr 150 mg PO DAILY RF: 0 venlafaxine 75 mg capsule,extended release 24hr 75 mg PO DAILY RF: 0 Seroquel 25 mg Tablet 25 mg PO BEDTIME RF: 0 meclizine 25 mg Tablet 25 mg PO TID PRN (Reason: Dizziness) RF: 0 lisinopril 10 mg tablet 10 mg PO DAILY RF: 0 mirtazapine 15 mg Tablet 15 mg PO BEDTIME RF: 0 albuterol sulfate 90 mcg/actuation Hfa Aerosol Inhaler 2 puff INHALATION QID PRN (Reason: Shortness Of Breath) RF: 0 Ozempic 0.25 mg or 0.5 mg(2 mg/1.5 mL) pen injector 0.25 mg SUBCUT Q7D RF: 0 Changed clonazepam 1 mg tablet 0.5 mg PO BID PRN (Reason: Anxiety) Qty: 0 RF: 0 Discontinued gabapentin 600 mg tablet 600 mg PO TID RF: 0 potassium chloride 20 mEq packet 20 meq PO DAILY RF: 0 Discharge Orders: Discharge Order (Routine); Ordered 01/30/21 Ordered By: Antonio Morocho Referrals: SNF, PCP [Other] - 4-7 days Gilberto Farfan MD [Physician] - 1 month Discharge Activity: As per PT/OT instructions Patient Instructions: Closed Reduction Internal Fixation of Leg Fracture in Adults (DC), Opioid Safety Activity Restrictions/Additional Instructions: May weight-bear as tolerated on left hip Okay to shower or bathe. Continue to abstain from alcohol. Continue thiamine. In case memory difficulties are not improving, consider referral and follow-up with neurology. Continue oral intake is tolerating with regular diet, supplement with Ensure clear with meals. Continue isolation until 02/02 for COVID-19. After 90 days after monoclonal antibody infusion, consider COVID-19 vaccination. Please follow-up on anemia. Please refer for MMA testing which could not be obtained in the hospital. Continue iron supplementation for iron deficiency anemia. Please refer for EGD and colonoscopy for additional assessment of MAMTA. Wound care stage 2 pressure area: continue foam dressing changes daily. Turn. Continue to encourage and optimize nutrition. Discharge Attestations Time Spent in Discharge Care*: greater than 30 min Quality Metrics Clinical Quality Measures During this hospital stay, did patient experience: None Coding Level of Care Code Acute g [facility] note Diagnoses Intertrochanteric fracture of left hip S72.142A Encounter type: initial encounter Fracture type: closed Fracture alignment: displaced Postoperative state Z98.890 COVID-19 U07.1 Acute encephalopathy G93.40 Refeeding syndrome E87.8 Electrolyte abnormality E87.8 Fall at home W19.XXXA; Y92.009 Encounter type: initial encounter Thyroid disorder E07.9 Ketoacidosis E87.2 Acute kidney injury N17.9 Lactic acidosis E87.2 High anion gap metabolic acidosis E87.2 Macrocytic anemia D53.9 Type 2 diabetes mellitus E11.40 Diabetes mellitus terminal operations supervisor insulin use: without alf use Diabetes mellitus complication status: with neurologic complications Diabetes mellitus complication detail: with unspecified neuropathy Hypertension I10 Hypertension type: primary hypertension UTI (urinary tract infection) N39.0 Major depressive disorder F32.9 Anxiety disorder F41.9 History of alcohol dependence F10.21 Moderate protein-calorie malnutrition E44.0
--- NOTE | 2021-01-30 14:04 | PC.NURSE ---
Report Report was called to Jessica Turner LPN from [facility] in [facility].
[2021-01-30 15:36] VITALS: BP 116/69; PULSE 71; RESP 16; TEMP 36.6; O2SAT 93
--- NOTE | 2021-01-30 16:15 | PC.NURSE ---
Glasses Pts family stated that he brought the patient her glasses to the front desk associate. No glasses found in room or her basin. Pt went home with her cell phone emergency operator, partials and clothing that son brought today.
== END 2021-01-30 16:18 | disposition skilled nursing facility (03) | DRG 480 ==
LOC: ER 01-19 02:34 → ICU 01-19 03:07 → MEDSURG 01-25 16:45
PROVIDERS: Orthopaedic Surgery; Student in an Organized Health Care Education/Training Program; Admitting Provider Hospitalist; Emergency Provider Emergency Medicine; PCP Nurse Practitioner Family; Visit Provider Internal Medicine
PROC: 0QS706Z Reposition Left Upper Femur with Intramedullary Internal Fixation Device, Open Approach (ICD-10-PCS; CPT 27245; principal; 2021-01-22 17:00)
DX: S72.142A Displaced intertrochanteric fracture of left femur, initial encounter for closed fracture (principal); E11.10 Type 2 diabetes mellitus with ketoacidosis without coma; U07.1 COVID-19; G93.41 Metabolic encephalopathy; E51.2 Wernicke's encephalopathy; N39.0 Urinary tract infection, site not specified; E44.0 Moderate protein-calorie malnutrition; N17.9 Acute kidney failure, unspecified; W19.XXXA Unspecified fall, initial encounter; F10.21 Alcohol dependence, in remission; F41.8 Other specified anxiety disorders; K21.9 Gastro-esophageal reflux disease without esophagitis; E78.5 Hyperlipidemia, unspecified; I10 Essential (primary) hypertension; D86.9 Sarcoidosis, unspecified; Z85.89 Personal history of malignant neoplasm of other organs and systems; Z98.84 Bariatric surgery status; Z87.891 Personal history of nicotine dependence; Z87.440 Personal history of urinary (tract) infections; Z79.84 Long term (current) use of oral hypoglycemic drugs; R00.0 Tachycardia, unspecified; E83.42 Hypomagnesemia; D50.9 Iron deficiency anemia, unspecified; B96.89 Other specified bacterial agents as the cause of diseases classified elsewhere; Z68.21 Body mass index [BMI] 21.0-21.9, adult; E11.649 Type 2 diabetes mellitus with hypoglycemia without coma; E11.40 Type 2 diabetes mellitus with diabetic neuropathy, unspecified; D53.9 Nutritional anemia, unspecified; E87.6 Hypokalemia
CPT/HCPCS: 36415; 36416; 36430; 36600; 51702; 70450; 71045; 71250; 72125; 72170; 73501; 73552; 74176; 76000; 76536; 80048; 80051; 80053; 80202; 80306; 80307; 81001; 82009; 82140; 82274; 82306; 82330; 82550; 82607; 82652; 82746; 82803; 82805; 82962; 83540; 83550; 83605; 83615; 83735; 83880; 83921; 83930; 84100; 84145; 84439; 84443; 84484; 84550; 85025; 85045; 85610; 85730; 86140; 86376; 86850; 86900; 86920; 87040; 87077; 87086; 87186; 87493; 87506; 87635; 93005; 96361; 96365; 96372; 97110; 97116; 97161; 97167; 97530; 97535; 99285; C1713; C9113; J0610; J0696; J1650; J1815 ×2; J2270; J2543; J2704; J3010; J3370; J3411; J3475; J3480; J3490; J7030; J7050; J7799; P9016

== ENCOUNTER 2021-02-27 06:00 | Outpatient (RCR) | payer MEDICARE, SELFPAY | END 2021-03-12 23:59 | disposition home or self-care (01) | LOC: WPT 06:00 | PROVIDERS: PCP Nurse Practitioner Family; Referring Provider Nurse Practitioner Family; Visit Provider Nurse Practitioner Family | DX: S72.002D Fracture of unspecified part of neck of left femur, subsequent encounter for closed fracture with routine healing (principal); X58.XXXD Exposure to other specified factors, subsequent encounter | CPT/HCPCS: 97110; 97163; 97530 ==

== ENCOUNTER 2021-03-08 13:24 | Outpatient (CLI) | payer MEDICARE, SELFPAY | END 2021-03-08 13:25 | disposition home or self-care (01) | LOC: WOUND 13:25 | PROVIDERS: PCP Nurse Practitioner Family; Visit Provider Emergency Medicine | DX: I96 Gangrene, not elsewhere classified (principal); L89.620 Pressure ulcer of left heel, unstageable; L89.890 Pressure ulcer of other site, unstageable; L89.150 Pressure ulcer of sacral region, unstageable; L89.310 Pressure ulcer of right buttock, unstageable; E11.621 Type 2 diabetes mellitus with foot ulcer; L97.518 Non-pressure chronic ulcer of other part of right foot with other specified severity; I10 Essential (primary) hypertension; Z87.891 Personal history of nicotine dependence | CPT/HCPCS: 11042; 11045; 99214 ==

== ENCOUNTER 2021-03-12 14:42 | Outpatient (CLI) | payer MEDICARE, OTHER, SELFPAY ==
--- NOTE | 2021-03-12 14:58 | USCV_ITS ---
Almita Mckniley Age: 65 Gender: F : 1955 Exam Date: 03/12/2021 15:34 Ordering Phys: Heidi Montoya DO Technologist: GEMINI [place] [facility] [place] Indication: HISTORY: 3+ pitting edema, bilateral lower extremities x 1 month s/p GLF and LEFT hip FX s/p ORIF. PROCEDURES: Patient has multiple non-healing sores on both legs, along with decubitus ulcers on her back and buttocks areas. Patient has been in a nursing facility for the last month and is very weak. Because of this, it was not possible to put the exam table in a 45 dgree Reverse Trendelenberg position, as the patient cannot support her own weight. Instead, it was raised only about 20 degrees. Valsalva maneuvers were performed to elicit insufficiency if present. There is no evidence of significant venous insufficiency in either the deep veins or the superficial veins. However, the LEFT Greater Saphenous Vein at mid calf level does NOT compress and is thrombosed. FINDINGS: The veins were found to be easily compressible with spontaneous blood flow. Non pulsatile flow pattern. No significant venous reflux in the deep or superficial veins CONCLUSIONS No evidence of DVT in the above-mentioned identifiable veins. No significant venous reflux were noted either in the superficial or in the deep venous system Dr Nate Kennedy MD [facility] (Electronically Signed) Final Date: 02 April 2021 10:18 S
== END 2021-03-12 14:43 | disposition home or self-care (01) ==
PROVIDERS: PCP Nurse Practitioner Family; Visit Provider Emergency Medicine
DX: E11.621 Type 2 diabetes mellitus with foot ulcer (principal)
CPT/HCPCS: 93970

== ENCOUNTER 2021-03-13 14:09 | Outpatient (CLI) | payer MEDICARE, SELFPAY | END 2021-03-13 14:10 | disposition home or self-care (01) | LOC: WOUND 14:10 | PROVIDERS: PCP Nurse Practitioner Family; Visit Provider Emergency Medicine | DX: E11.621 Type 2 diabetes mellitus with foot ulcer (principal); L89.626 Pressure-induced deep tissue damage of left heel; L89.616 Pressure-induced deep tissue damage of right heel; L89.316 Pressure-induced deep tissue damage of right buttock | CPT/HCPCS: 99212 ==

== ENCOUNTER 2021-03-13 15:08 | Inpatient (IN) | payer MEDICARE, MEDICAID, SELFPAY ==
[2021-03-13 15:17] VITALS: BP 118/68; PULSE 117; RESP 16; TEMP 36.9; O2SAT 98; BMI 21.2
[2021-03-13 15:30] VITALS: BP 100/70; PULSE 112; RESP 14; O2SAT 100
--- NOTE | 2021-03-13 15:30 | XR_ITS ---
WS: [id number] XR chest 1V portable [id number] REASON FOR EXAM: dyspnea/cough FINDINGS: Chest is unchanged compared to 01/18/2021. Moderate ectasia and tortuosity the thoracic aorta with prominence of the evan ascending aorta. Normal heart size. Calcified granulomatous disease bilaterally with a large calcified nodule in the left lung. Elevation of the left hemidiaphragm. No acute pulmonary parenchymal or pleural abnormality. 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 XR/XR chest 1V portable [id number] IMPRESSION: Stable chest with no acute abnormality.
--- NOTE | 2021-03-13 15:30 | ECG_ITS ---
[facility] Test Date: 2021-03-13 Pat Name: Almita Mckinley Department: Room: Gender: Female Diamond Cleaver: : 1955 Requested By: Keegan Lopez Order Number: [id number] Viridiana MD: Claribel Lechuga M.D. Measurements Intervals Amity Rate: 111 P: 63 MD: 138 QRS: -58 QRSD: 76 T: 88 QT: 339 QTc: 461 Interpretive Statements SINUS TACHYCARDIA LOW QRS VOLTAGE [QRS DEFLECTION < 0.5/1.0 mV IN LIMB/CHEST LEADS] LEFT ANTERIOR FASCICULAR BLOCK [QRS AXIS <= -45, QR IN I, RS IN II] Compared to ECG 01/19/2021 06:19:09 Low QRS voltage now present Left anterior fascicular block now present Electronically Signed On 03-13-2021 16:53:14 FUR DYER by Claribel Lechuga M.D. [id number]
--- NOTE | 2021-03-13 15:34 | W.ED.ARRPALP ---
HPI - Arrhythmia/Palpitations General: Chief Complaint: ER Hold Stated Complaint: HYPOTENSION Time Seen by Provider: 03/13/21 15:23 History of Present Illness: 65-year-old female presents emergency room from the wound care clinic. He arrived there for routine wound care appointment. She has multiple pressure ulcers on her sacral area and as well as some in the lower extremities. When she came to wound care clinic today they found her to be hypotensive and tachycardic. She did not have a fever there is a concern that she would be septic. She was referred to the ER. She denies any abdominal pain she denies any chest pain denies any shortness of breath or myalgias. MD complaint: rapid heart beat, heart racing and palpitations Onset (ago): hour(s) Duration: intermittent Severity: mild Context: occurred during rest Associated symptoms: Reports pre-syncope; Deny anxiety, cough, diaphoresis, muscle cramps, nausea, paresthesias, sense of impending doom, short of breath, syncope or vomiting Review of Systems Const: Denies: diaphoresis ENMT: Denies: throat pain, ear or mastoid pain, nasal discharge or nasal congestion Card: Reports: palpitations and pre-syncope; Denies: chest pain or syncope Resp: Denies: dyspnea, productive cough or non-productive cough GI: Denies: abdominal pain, nausea or vomiting : Denies: flank pain, difficulty voiding, dysuria, urinary frequency or urinary urgency Musc: Denies: muscle cramps Skin/Breast: Denies: rash or pruritus Psych: Denies: anxiety PFS ED PFSH: Medical History Anxiety disorder Fall at home GERD (gastroesophageal reflux disease) High anion gap metabolic acidosis History of alcohol dependence Hyperlipidemia Hypertension Hyperthyroidism Intertrochanteric fracture of left hip Ketoacidosis Lactic acidosis Major depressive disorder Refeeding syndrome Sarcoidosis diagnosis per available outside records, with patient stating onset in , details unknown, never put on specific treatment per report Thyroid disorder Type 2 diabetes mellitus Vulvar carcinoma Surgical History History of carpal tunnel release History of gastric bypass Family History Other Cancer Social History Smoking and tobacco status: former smoker Alcohol intake: former Number of children: 0 Physical Exam Const: GENERAL APPEARANCE: cooperative and comfortable ORIENTATION/CONSCIOUSNESS: Yes awake, Yes oriented to person, Yes oriented to place and Yes oriented to time HENMT: COMMON NORMALS: normocephalic, atraumatic and hearing grossly normal bilaterally HEAD & SCALP: normocephalic and atraumatic Neck/C-Spine: COMMON NORMALS: no JVD Resp: COMMON NORMALS: normal respiratory effort, No retractions, No use of accessory muscles and clear to auscultation bilaterally AUSCULTATION: clear to auscultation bilaterally Cardio: COMMON NORMALS: no JVD, regular rate, regular rhythm and No murmurs present (Cardio) RATE: regular rate RHYTHM: regular rhythm GI: COMMON NORMALS: Soft to palpation and No hepatosplenomegaly present AUSCULTATION: Yes normoactive bowel sounds PALPATION: Yes Soft to palpation, No Tenderness to palpation present (GI), No Guarding due to palpation present (GI) and Yes No hepatosplenomegaly present : COMMON NORMALS: Yes no CVA tenderness BLADDER/KIDNEY EXAM: Yes no CVA tenderness Back/Pelvis: COMMON NORMALS: no CVA tenderness Extremity: COMMON NORMALS: normal to inspection, capillary refill normal, no clubbing, cyanosis or edema, no calf tenderness and no pedal edema Neuro: SENSORIUM/ORIENTATION: Yes oriented to person, Yes oriented to place and Yes oriented to time Skin: COMMON NORMALS: no rashes or lesions noted GENERAL SKIN EXAM: no rashes or lesions noted OTHER: Multiple presacral strep pressure ulcers. There is also some in the lateral aspect of the left lower leg. No active drainage no redness no erythema. Course Vital Signs: Vital signs: Vital Signs Temperature 97.6 F 03/15/21 04:00 Pulse Rate 111 H 03/15/21 04:00 Respiratory Rate 14 03/15/21 04:00 Blood Pressure 106/69 03/15/21 04:00 Pulse Oximetry 99 03/15/21 04:00 MDM - Arrhythmia/Palpitations Medical Decision Making Patient has acute cystitis which I think is a source of her sepsis. White count is elevated. We will go ahead and admit her started on IV antibiotics. The wounds do not appear to be infected at this time. Antibiotic started orders written. Discussed with hospitalist. Medical Records I reviewed the patient's medical records. Lab Data I reviewed the patient's lab results. : 03/14/21 08:50 03/14/21 06:40 Radiology Impressions Chest X-Ray 03/13/21 15:30 IMPRESSION: Stable chest with no acute abnormality. Abdomen/Pelvis CT 03/14/21 04:00 IMPRESSION: The previously noted ileocolic intussusception has resolved. No bowel obstruction. COMMENTS: Consistent with the [employer]'s Incidental Findings Committee white paper (J Am Hortensia Radiol 2018): Any incidental renal lesion less than 1 cm or classified as too small to characterize, or any incidental cystic renal lesion characterized as simple-appearing, is likely benign. No follow-up imaging is recommended for these lesions per consensus recommendations based on imaging criteria. Gallbladder Ultrasound 03/14/21 18:01 IMPRESSION: Technically difficult study due to bowel gas and patient mobility 1. Mild hepatomegaly with diffuse fatty infiltration. 2. Prior cholecystectomy. 3. No hydronephrosis in right kidney. 4. Normal common bile duct measuring 5.5 mm. Laboratory Results WBC 14.6 10^3/uL (4.0-10.0) H 03/13/21 15:43 RBC 3.38 10^6/uL (4.1-5.3) L 03/13/21 15:43 Hgb 11.0 g/dL (11.5-15.3) L 03/13/21 15:43 Hct 35.1 % (37.0-47.0) L 03/13/21 15:43 MCV 103.8 fl (81-99) H 03/13/21 15:43 MCH 32.5 pg (28.0-34.0) 03/13/21 15:43 MCHC 31.3 g/dL (30.0-36.0) 03/13/21 15:43 RDW 16.5 % (12.1-15.1) H 03/13/21 15:43 Plt Count 316 10^3/cmm (130-400) 03/13/21 15:43 MPV 10.4 fL (7.4-10.4) 03/13/21 15:43 Neut % (Auto) 81.9 % 03/13/21 15:43 Lymph % (Auto) 14.1 % 03/13/21 15:43 [place] % (Auto) 2.9 % 03/13/21 15:43 Eos % (Auto) 0.0 % 03/13/21 15:43 Baso % (Auto) 0.1 % 03/13/21 15:43 Neut # (Auto) 11.92 10^3/uL (1.8-7.7) H 03/13/21 15:43 Lymph # (Auto) 2.1 10^3/uL (0.8-4.8) 03/13/21 15:43 [place] # (Auto) 0.4 10^3/uL (0.2-0.9) 03/13/21 15:43 Eos # (Auto) 0.0 10^3/uL (0.0-0.8) 03/13/21 15:43 Baso # (Auto) 0.0 10^3/uL (0.0-0.1) 03/13/21 15:43 Nucleated RBC % (auto) 0.1 % 03/13/21 15:43 Nucleated RBCs # 0.0 /100WBC 03/13/21 15:43 Specimen Type Arterial 03/13/21 17:56 Sample Site Brachial, right 03/13/21 17:56 ABG pH 7.42 (7.35-7.45) 03/13/21 17:56 ABG pCO2 24.4 mmHg (35-45) L 03/13/21 17:56 ABG pO2 86.3 mmHg (80.0-100.0) 03/13/21 17:56 ABG HCO3 15.8 mmol/L (22-26) L 03/13/21 17:56 ABG O2 Saturation 97.6 03/13/21 17:56 ABG Base Excess -7.3 mmol/L (-2.0-2.0) L 03/13/21 17:56 [place] Test N/a 03/13/21 17:56 A-a O2 Gradient 4.0 mmHg (5-10) L 03/13/21 17:56 Hematocrit 31.3 % (37-47) L 03/13/21 17:56 Hgb O2 Saturation 96.3 % (95-100) 03/13/21 17:56 Carboxyhemoglobin 0.7 %THgb (0.4-20.1) 03/13/21 17:56 Methemoglobin 0.6 % (0.4-1.5) 03/13/21 17:56 Total Hemoglobin 10.2 g/dL (12-16) L 03/13/21 17:56 Sodium 132.0 mmol/L (131-143) 03/13/21 17:56 Potassium 4.6 mmol/L (3.5-5.0) 03/13/21 17:56 Glucose 310.0 mg/dL (70-115) H 03/13/21 17:56 Ionized Calcium 1.1 mmol/L (1.1-1.4) 03/13/21 17:56 O2 Delivery Device Room air 03/13/21 17:56 FiO2 21.0 % 03/13/21 17:56 Corporate Services Manager ID Amh 03/13/21 17:56 Sodium 131 mmol/L (136-145) L 03/13/21 15:43 Potassium 5.0 mmol/L (3.5-5.1) 03/13/21 15:43 Chloride 95 mmol/L (98-107) L 03/13/21 15:43 Carbon Dioxide 15 mmol/L (22-29) L 03/13/21 15:43 Anion Gap 26.0 (5-19) H 03/13/21 15:43 BUN 5 mg/dL (8-23) L 03/13/21 15:43 Creatinine 0.7 mg/dL (0.5-0.9) 03/13/21 15:43 GFR Calculation 84.0 mL/min (90-130) L 03/13/21 15:43 Glucose 308 mg/dL (65-115) H 03/13/21 15:43 Estimat Average Glucose 180 03/13/21 15:43 Hemoglobin A1c 7.9 % (4.0-6.0) H 03/13/21 15:43 Calculated Osmolality 281 mOsm/kg (285-295) L 03/13/21 15:43 Lactic Acid 8.6 mmol/L (0.5-2.2) H* 03/13/21 15:43 Lactic Acid (Sepsis) 6.6 mmol/L (0.5-2.2) H* 03/13/21 19:25 Calcium 7.4 mg/dL (8.5-10.5) L 03/13/21 15:43 Total Bilirubin 1.7 mg/dL (0.15-1.2) H 03/13/21 15:43 GGT 343 U/L (5-36) H 03/13/21 15:43 AST 104 U/L (0-32) H 03/13/21 15:43 ALT 47 U/L (0-33) H 03/13/21 15:43 Alkaline Phosphatase 282 IU/L (35-105) H 03/13/21 15:43 Creatine Kinase 80 U/L (26-192) 03/13/21 15:43 Troponin T Baseline 29 ng/L (0-10) H 03/13/21 15:43 Troponin T 120 Minute 24.37 ng/L (0-10) H 03/13/21 17:41 Delta Troponin T -4.63 ABS# (0-10) L 03/13/21 17:41 Troponin T Hi Sens 6Hr 21.62 ng/L (0-10) H 03/13/21 21:33 Troponin T Hi Sens 6Hr Delta -7.38 ng/L (0-12) L 03/13/21 21:33 C-Reactive Protein 17.1 mg/L (0.0-4.9) H 03/13/21 15:43 Total Protein 5.2 g/dL (6.6-8.7) L 03/13/21 15:43 Albumin 2.1 g/dL (3.5-5.2) L 03/13/21 15:43 Globulin 3.1 g/dL (1.3-4.6) 03/13/21 15:43 Lipase 9 U/L (13-60) L 03/13/21 15:43 Vitamin B12 > 2000 pg/mL (232-1245) H 03/13/21 15:43 Folate > 20.0 ng/mL (4.8-37.3) 03/13/21 19:25 Procalcitonin > 100.00 ng/mL (0-0.5) H 03/13/21 15:43 Urine Color Yellow (Yellow) 03/13/21 16:10 Urine Appearance Cloudy (CLEAR) 03/13/21 16:10 Urine pH 5 (5-7) 03/13/21 16:10 Ur Specific [place] 1.020 (1.005-1.030) 03/13/21 16:10 Urine Protein Trace (Negative) 03/13/21 16:10 Urine Glucose (UA) 2+ (Normal) H 03/13/21 16:10 Urine Ketones Negative (Negative) 03/13/21 16:10 Urine Blood 2+ (Negative) H 03/13/21 16:10 Urine Nitrate Negative (Negative) 03/13/21 16:10 Urine Bilirubin 1+ (Negative) H 03/13/21 16:10 Urine Urobilinogen 1 mg/dL (Negative) H 03/13/21 16:10 Ur Leukocyte Esterase 2+ (Negative) H 03/13/21 16:10 Urine RBC 5-10 /hpf (0-2) H 03/13/21 16:10 Urine WBC 55-80 /hpf (0-5) H 03/13/21 16:10 Ur Squamous Epith Cells 0-4 /hpf (0-5) H 03/13/21 16:10 Amorphous Sediment Not Reportable 03/13/21 16:10 Urine Bacteria 3+ /hpf (NONE) H 03/13/21 16:10 Urine Opiates Screen Negative ng/mL (Negative) 03/13/21 16:10 Ur Barbiturates Screen Negative ng/mL (Negative) 03/13/21 16:10 Ur Phencyclidine Scrn Negative ng/mL (Negative) 03/13/21 16:10 Ur Amphetamines Screen Negative ng/mL (Negative) 03/13/21 16:10 U Benzodiazepines Scrn Negative ng/mL (Negative) 03/13/21 16:10 Urine Cocaine Screen Negative ng/mL (Negative) 03/13/21 16:10 U Marijuana (THC) Screen Negative ng/mL (Negative) 03/13/21 16:10 Ethyl Alcohol < 10 mg/dL (0-10) 03/13/21 15:43 Serum Ketones Negative (Negative) 03/13/21 19:25 Discharge Plan Discharge Admit Provider: Haja Garza Condition: Stable Coding Level of Care Code ED [employer] for Chg Fwd Exam Comprehensive
[2021-03-13 16:12] VITALS: PULSE 117; RESP 12; O2SAT 96
[2021-03-13 16:25] LABS: Basophils % 0.1 %; Hematocrit 35.1 % (37.0-47.0); Lymphocytes # 2.1 10^3/uL (0.8-4.8); Lymphocytes % 14.1 %; Mean Corpuscular HGB Conc 31.3 g/dL (30.0-36.0); Mean Corpuscular Hemoglobin 32.5 pg (28.0-34.0); Mean Corpuscular Volume 103.8 fl (81-99); Mean Platelet Volume 10.4 fL (7.4-10.4); Monocytes # 0.4 10^3/uL (0.2-0.9); Monocytes % 2.9 %; Neutrophils # 11.92 10^3/uL (1.8-7.7); Neutrophils % 81.9 %; Nucleated Red Blood Cells % 0.1 %; Platelet Count 316 10^3/cmm (130-400); Red Blood Count 3.38 10^6/uL (4.1-5.3); Red Cell Distribution Width 16.5 % (12.1-15.1); White Blood Count 14.6 10^3/uL (4.0-10.0)
[2021-03-13 16:38] VITALS: BP 134/75; PULSE 110; RESP 20; O2SAT 96
[2021-03-13 16:41] LABS: Troponin(5th) Baseline 29 ng/L (0-10)
[2021-03-13 16:42] LABS: Alanine Aminotransferase 47 U/L (0-33); Albumin Level 2.1 g/dL (3.5-5.2); Alkaline Phosphatase 282 IU/L (35-105); Blood Urea Nitrogen 5 mg/dL (8-23); Calcium 7.4 mg/dL (8.5-10.5); Carbon Dioxide 15 mmol/L (22-29); Chloride 95 mmol/L (98-107); Creatine Phosphokinase 80 U/L (26-192); Globulin 3.1 g/dL (1.3-4.6); Glucose 308 mg/dL (65-115); Osmolality Calculated 281 mOsm/kg (285-295); Sodium 131 mmol/L (136-145); Total Bilirubin 1.7 mg/dL (0.15-1.2); Total Protein 5.2 g/dL (6.6-8.7)
[2021-03-13 16:43] LABS: Aspartate Amino Transferase 104 U/L (0-32)
[2021-03-13 16:45] LABS: Lactic Sepsis W/Reflex 8.6 mmol/L (0.5-2.2)
[2021-03-13 16:58] LABS: Add Urine Microscopic? YES; Bilirubin Urine 1+ (Negative); Blood Urine 2+ (Negative); Glucose Urine UA 2+ (Normal); Ketones Urine Negative (Negative); Leukocyte Esterase Urine 2+ (Negative); Nitrate Urine Negative (Negative); Protein Urine Trace (Negative); Urine Appearance Cloudy (CLEAR); Urine Color Yellow (Yellow); Urobilinogen Urine 1 mg/dL (Negative); pH Urine 5 (5-7)
[2021-03-13 17:03] LABS: Add Urine Culture? Yes; Bacteria Urine 3+ /hpf; Squamous Epithelial Cell Urine 0-4 /hpf (0-5); WBC Urine 55-80 /hpf (0-5)
[2021-03-13] MEDS: sodium chloride 0.9% 1,000 ML 999 ML IV (17:23)
[2021-03-13] MEDS: piperacillin-tazobactam 3.375 GM in sodium chloride 0.9% (plus) 50 ML IV ×2 (17:23→23:53)
--- NOTE | 2021-03-13 17:30 | ECG_ITS ---
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 Measurements Intervals [place] Rate: 115 P: 65 MA: 134 QRS: -64 QRSD: 82 T: 92 QT: 336 QTc: 465 Interpretive Statements SINUS TACHYCARDIA LOW QRS VOLTAGE [QRS DEFLECTION < 0.5/1.0 mV IN LIMB/CHEST LEADS] POSSIBLE ANTERIOR MYOCARDIAL INFARCTION , PROBABLY OLD [30 ms Q WAVE IN V3/V4, OR R < 0.2 mV IN V4] INFERIOR MYOCARDIAL INFARCTION , PROBABLY OLD [40+ ms Q WAVE AND/OR ST/T ABNORMALITY IN II/aVF] Compared to ECG 03/13/2021 15:32:40 Myocardial infarct finding now present Left anterior fascicular block no longer present Electronically Signed On 03-13-2021 17:11:02 WRITING CENTER DIRECTOR by Claribel Lechuga M.D. [id number]
--- NOTE | 2021-03-13 17:43 | CTR_ITS ---
PROCEDURE INFORMATION: Exam: CT Abdomen And Pelvis Without Contrast Exam date and time: 03/13/2021 5:43 PM Age: 65 years old Clinical indication: Nausea; Abdominal pain; Prior surgery; Surgery type: Hip; Additional info: Renal stone? TECHNIQUE: Imaging protocol: Computed tomography of the abdomen and pelvis without contrast. Radiation optimization: All CT scans at this facility use at least one of these dose optimization techniques: automated exposure control; mA and/or kV adjustment per patient size (includes targeted exams where dose is matched to clinical indication); or iterative reconstruction. COMPARISON: CT chest abd pel wo con 01/18/2021 6:42 PM RADIATION DOSE METRICS: Total DLP (mGy-cm): 653.95 FINDINGS: Lungs: Coarse reticular interstitial lung change. Underlying centrilobular emphysema. Liver: Liver steatosis. Gallbladder and bile ducts: Cholecystectomy. Nondilated biliary system. Pancreas: Atrophic pancreas without lesion. Spleen: Splenic granulomas. Negative for splenomegaly. Adrenal glands: Normal. No mass. Kidneys and ureters: Simple left renal upper pole cortically based cyst measures 3.3 cm x 3.6 cm. No dedicated imaging follow-up recommended. No hydronephrosis. No calcified renal stones. Stomach and bowel: Surgical bypass changes of the stomach are apparent without complication identified. No dilated loops of bowel are identified. Ileocolic intussusception is noted conspicuous on axial image 92 and sagittal image 52. Negative for bowel pneumatosis. No obvious bowel wall lead point mass, however cannot be excluded given the pathology present. Small bowel surgical anastomosis left lower quadrant with unremarkable appearance. Appendix: Not seen. Intraperitoneal space: Trace pelvic free fluid. No loculation. No free air. Vasculature: Extensive calcified plaques of abdominal aorta. No aneurysm. Lymph nodes: Unremarkable. No enlarged lymph nodes. Urinary bladder: Decompressed bladder. Reproductive: Unremarkable as visualized. Bones/joints: Old left femur fracture with surgical fixation. Heterotopic ossification around the fracture. Bones are demineralized. Grade 1 L4-L5 spondylolisthesis secondary to facet joint arthropathy. No suspicious bone lesion. Soft tissues: Body wall anasarca. Atrophic but unremarkable lumbar paraspinal muscles. CT/CT abdomen pelvis wo con [id number] IMPRESSION: 1. Ileocolic intussusception. 2. Urgent surgical consultation is recommended. COMMENTS: Consistent with the [place] [employer]'s Incidental Findings Committee white paper (J Am Hortensia Radiol 2018): Any incidental renal lesion less than 1 cm or classified as too small to characterize, or any incidental cystic renal lesion characterized as simple-appearing, is likely benign. No follow-up imaging is recommended for these lesions per consensus recommendations based on imaging criteria.
[2021-03-13 17:48] LABS: Reflex Lactate Order REFLEX LACTIC ORDERD
[2021-03-13 18:07] LABS: ABG PCO2 24.4 mmHg (35-45); ABG PH Result 7.42 (7.35-7.45); Arterial Blood Gas Hematocrit 31.3 % (37-47); Base Excess ABG -7.3 mmol/L (-2.0-2.0); Blood Gas Operator Identificat AMH; Blood Gas Sample Site Brachial, right; Blood Gas Sample Type Arterial; Carboxyhemoglobin 0.7 %THgb (0.4-20.1); HCO3 ABG 15.8 mmol/L (22-26); HGB O2 Sat 96.3 % (95-100); Ionized Calcium Level - ABG 1.1 mmol/L (1.1-1.4); Methemoglobin 0.6 % (0.4-1.5); Oxygen Device ROOM AIR; Oxygen Saturation ABG 97.6; PO2 ABG 86.3 mmHg (80.0-100.0); Potassium Level - ABG 4.6 mmol/L (3.5-5.0); Total Hemoglobin 10.2 g/dL (12-16)
--- NOTE | 2021-03-13 18:11 | PM.HP ---
Providers/Chief Complaint Primary Care Provider: Geeta Anders [employer]IECE [employer]SEMBLER-C Chief Complaint: HYPOTENSION History of Present Illness Almita Mckinley is a 65 year old female with a past medical history of dpe-fdqskzc-euznbasue diabetes mellitus, recent history of left hip fracture, history of COVID-19 infection, history of refeeding syndrome, history of UTI, history of alcohol abuse in the past, history of lactic acidosis, anxiety depression, who [place] [facility] due to low blood pressure, tachycardia, fatigue, malaise. Patient tells me that since her hospital discharge to the longterm, she has not been doing well at the longterm, she developed a lot of pressure ulcers from laying around. She was at wound care today, when they checked her vitals her blood pressures were low, heart rate was fast she was not feeling well, so they are worried about sepsis so they sent her over to emergency room. Currently alert oriented x3, following all commands, she is laying on her right side, complaining of pain over her DTI's, denies any flank pain, no dysuria, no hematuria, no headache, blurry vision, no chest pain, no shortness of breath, no cough. Review of Systems Const: Denies: fever(s), chills, fatigue or malaise Eyes: Denies: change in vision or blurry vision ENMT: Denies: nasal congestion Card: Denies: chest pain, irregular heart rhythm or lightheadedness Resp: Denies: dyspnea, productive cough, non-productive cough or wheezing GI: Denies: abdominal pain, nausea, vomiting, hematemesis, diarrhea, constipation, hematochezia or melena : Denies: flank pain, dysuria or urinary frequency Musc: Reports: back pain; Denies: neck pain Skin/Breast: Denies: rash Neuro: Denies: headache(s), dizziness or vertigo Psych: Denies: anxiety or depression Endo: Denies: polyuria or polydipsia Medications/Allergies Home Medications Medication Instructions Recorded Confirmed Last Taken Type biotin 10,000 mcg capsule 10,000 mcg PO DAILY 04/03/20 03/13/21 03/12/21 History calcium citrate 315 mg-vitamin D3 1 tab PO DAILY 04/03/20 03/13/21 03/12/21 History 5 mcg (200 unit) tablet (Calcium Citrate + D) coenzyme Q10 10 mg capsule (Co 10 mg PO TID 04/03/20 03/13/21 03/12/21 History Q-10) fluticasone propionate 50 1 spray INTRANASAL DAILY 04/03/20 03/13/21 Unknown History mcg/actuation nasal spray,suspension (Allergy Relief (fluticasone)) furosemide 20 mg tablet 20 mg PO DAILY 04/03/20 03/13/21 03/12/21 History metformin 500 mg tablet 1,000 mg PO BID 04/03/20 03/13/21 03/12/21 History multivitamin,wa-afys-otzoczkq 1 tab PO DAILY 04/03/20 03/13/21 03/12/21 History (Complete Multivitamin) pantoprazole 40 mg tablet,delayed 40 mg PO DAILY 04/03/20 03/13/21 03/12/21 History release simvastatin 40 mg tablet 40 mg PO DAILY 04/03/20 03/13/21 03/12/21 History venlafaxine 150 mg 150 mg PO DAILY 04/03/20 03/13/21 02/28/21 History capsule,extended release 24 hr albuterol sulfate 90 mcg/actuation 2 puff INHALATION QID PRN 01/18/21 03/13/21 Unknown History aerosol inhaler meclizine 25 mg tablet 25 mg PO TID PRN 01/18/21 03/13/21 Unknown History quetiapine 25 mg tablet (Seroquel) 12.5 mg PO BID 01/18/21 03/13/21 03/12/21 History venlafaxine 75 mg capsule,extended 75 mg PO DAILY 01/18/21 03/13/21 03/12/21 History release 24 hr clonazepam 1 mg tablet 0.5 mg PO BID PRN #0 tab 01/30/21 03/13/21 01/17/21 Rx ferrous sulfate 325 mg (65 mg 325 mg PO EVERY OTHER DAY #90 tab 01/30/21 03/13/21 03/12/21 Rx iron) tablet,delayed release metoprolol tartrate 25 mg tablet 25 mg PO BID@0900,2100 #180 tab 01/30/21 03/13/21 03/12/21 Rx thiamine mononitrate (vit B1) 100 100 mg PO DAILY #90 tab 01/30/21 03/13/21 03/12/21 Rx mg tablet (Vitamin B-1 (mononitrate)) fluticasone furoate 200 1 ea INHALATION DAILY 03/13/21 03/13/21 Unknown History mcg-vilanterol 25 mcg/dose inhalation powder (Breo Ellipta) gabapentin 600 mg tablet 600 mg PO TID 03/13/21 03/13/21 03/12/21 History Allergies Allergy/AdvReac Type Severity Reaction Status Date / Time No Known Allergies Allergy Verified 12/25/20 11:48 PFSH Acute PFSH: Medical History (Updated 03/13/21 @ 18:18 by Haja Garza MD) Anxiety disorder Fall at home GERD (gastroesophageal reflux disease) High anion gap metabolic acidosis History of alcohol dependence Hyperlipidemia Hypertension Hyperthyroidism Intertrochanteric fracture of left hip Ketoacidosis Lactic acidosis Major depressive disorder Refeeding syndrome Sarcoidosis diagnosis per available outside records, with patient stating onset in , details unknown, never put on specific treatment per report Thyroid disorder Type 2 diabetes mellitus Vulvar carcinoma Surgical History History of carpal tunnel release History of gastric bypass Family History Other Cancer Social History Smoking and tobacco status: former smoker Alcohol intake: former Number of children: 0 Vitals/I&O/Wt Last Vital Signs Temp 98.5 F 03/13/21 15:17 Pulse 110 H 03/13/21 16:38 Resp 20 H 03/13/21 16:38 BP 134/75 03/13/21 16:38 Pulse Ox 96 03/13/21 16:38 03/13/21 03/13/21 03/13/21 06:59 14:59 22:59 Intake Total 50 / 50 Balance 50 / 50 Weight last 48 hrs Weight 54.431 kg Physical Exam Const: COMMON NORMALS: no acute distress and patient oriented x3 HENMT: COMMON NORMALS: normocephalic and oropharynx normal FACE & SINUS: normal facial exam NOSE: Normal external nose present MOUTH: Normal oral and palatal mucosa present Eye: COMMON NORMALS: Equal, round and reactive pupils present, conjunctivae normal and no scleral icterus CONJUNCTIVA: Yes conjunctivae normal Neck/C-Spine: COMMON NORMALS: full ROM, no lymphadenopathy, no meningeal signs and no JVD THYROID: Thyroid normal Lymph: LYMPHATIC: no lymphadenopathy noted Chest: COMMONS NORMALS: normal inspection of the chest Resp: COMMON NORMALS: normal respiratory effort, No retractions, No use of accessory muscles and clear to auscultation bilaterally AUSCULTATION: clear to auscultation bilaterally Cardio: COMMON NORMALS: regular rate, regular rhythm, S1 normal heart sound present, S2 normal heart sound present, No murmurs present (Cardio) and Peripheral pulses 2+ throughout RATE: regular rate RHYTHM: regular rhythm HEART SOUNDS: S1 normal heart sound present and S2 normal heart sound present PERIPHERAL PULSES: Peripheral pulses 2+ throughout GI: COMMON NORMALS: Normal to inspection, nondistended, normoactive bowel sounds present, Soft to palpation, non-tender and No hepatosplenomegaly present PALPATION: Yes Soft to palpation and Yes No hepatosplenomegaly present : COMMON NORMALS: Yes no CVA tenderness Back/Pelvis: COMMON NORMALS: no CVA tenderness Extremity: COMMON NORMALS: normal to inspection, full ROM, capillary refill normal, no calf tenderness and no pedal edema Neuro: COMMON NORMALS: patient oriented x3, CN's II-XII intact bilaterally, moves all extremities, no focal motor deficits and no sensory deficits noted MENINGEAL SIGNS: Yes no meningeal signs Psych: COMMON NORMALS: mental status grossly normal, Normal thought process present, cooperative and speech normal APPEARANCE: Yes well kempt SPEECH: Yes normal speech THOUGHT PROCESS: Normal thought process present Skin: COMMON NORMALS: turgor normal and no jaundice NARRATIVE SKIN EXAM: Multiple deep tissue injuries -Deep tissue injury, present over sacrum, largest measuring 2 x 3 cm irregular borders, with black eschar -Multiple DTI's over right and left thigh, largest measuring 1 x 1 cm, irregular borders, black eschar Multiple DTI's present over right calf, largest measuring 1 x 1 cm, irregular borders GENERAL SKIN EXAM: turgor normal Data : 03/13/21 15:43 03/13/21 15:43 Micro: Microbiology 03/13/21 17:50 Blood Culture - Preliminary Blood SPECIMEN COLLECTED 03/13/21 17:41 Blood Culture - Preliminary Blood SPECIMEN COLLECTED A&P Assessment and plan (1) Moderate protein-calorie malnutrition: Status: Acute (2) Lactic acidosis: Status: Acute (3) High anion gap metabolic acidosis: Status: Acute (4) Major depressive disorder: Status: Acute (5) Deep tissue injury: Status: Acute (6) Sepsis: Status: Acute (7) UTI (urinary tract infection): Status: Acute (8) Type 2 diabetes mellitus: Status: Acute Qualifiers: Diabetes mellitus half-way insulin use: without half-way use Diabetes mellitus complication status: with neurologic complications Diabetes mellitus complication detail: with unspecified neuropathy Qualified Code(s): E11.40 - Type 2 diabetes mellitus with diabetic neuropathy, unspecified Plan Sepsis -Secondary to UTI -However does have elevated bili, alk phos, LFTs -Blood pressure 134/75, pulse 110, respiratory 20, on room air, alert oriented x3, lactic acid 8.6, pH 7.42, white blood cell count 14.6 Plan: -Follow urine cultures, blood cultures -Vancomycin, Zosyn -CT scan of the pelvis to evaluate for possible obstructive uropathy, gallbladder pathology -Full code -Lovenox for DVT prophylaxis Lactic acidosis -Has a history of severe lactic acidosis in the past -Serum ketones pending -Possibly starvation ketosis -Possibly related to Metformin -Possibility of sepsis -Possibly due to dehydration -Monitor serum lactic acids Increased anion gap metabolic acidosis -Has a history of this on her past hospitalization -Serum ketones pending, if positive, will treat for diabetic ketoacidosis, start insulin drip, require ICU admission -If ketones are negative, can move to the general medical floors -Other possibilities are lactic acidosis as above, starvation ketosis, dehydration -Continue IV fluids -pH 7.42, compensated, bicarb 15 Macrocytic anemia -Continue to monitor History of alcoholism, banana bag, continue thiamine, B12, folate History of thyroid disorder, recheck TSH Type 2 diabetes mellitus, depending on ketones as above, insulin drip versus low-dose sliding scale, blood sugar 308 Moderate protein calorie malnutrition, add Ensure with meals Major depressive disorder, continue home medications Elevated troponins,, likely secondary sepsis as above, serial troponins, serial EKGs Elevated T bili, AST, alk phos, CT scan as above Sacral, lower extremity DTI's, with a black eschar, general wound care, will discuss with surgery Attestations Medical Necessity Statement*: Patient requires hospitalization, inpatient, greater than 2 minutes, for lactic acidosis, sepsis, UTI,, anion gap metabolic acidosis Coding Level of Care Code Acute Care Companion for Chg Fwd History Comprehensive Exam Comprehensive Medical Decision Making High Complexity Diagnoses Moderate protein-calorie malnutrition E44.0 Lactic acidosis E87.2 High anion gap metabolic acidosis E87.2 Major depressive disorder F32.9 Deep tissue injury T14.8XXA Sepsis A41.9 UTI (urinary tract infection) N39.0 Type 2 diabetes mellitus E11.40 Diabetes mellitus manager long term care insulin use: without manager long term care use Diabetes mellitus complication status: with neurologic complications Diabetes mellitus complication detail: with unspecified neuropathy Time Spent (min) 55
[2021-03-13 18:20] LABS: Troponin 5 2HR 24.37 ng/L (0-10)
[2021-03-13] MEDS: vancomycin 1,000 MG in sodium chloride 0.9% 250 ML 250 MG IV (18:20)
[2021-03-13 18:21] LABS: C Reactive Protein 17.1 mg/L (0.0-4.9)
[2021-03-13 18:21] LABS: Troponin 5 2HR Delta -4.63 ABS# (0-10)
[2021-03-13 18:22] VITALS: BP 141/77; PULSE 103; RESP 16; O2SAT 97
--- NOTE | 2021-03-13 19:00 | P.CONIM_ITS ---
Providers/Reason For Consult Consulting Physician/Specialty*: Luis Vogt MD Reason for Consult*: Ileocolonic intussusception Requesting Physician: Dr. Gomez Attending Physician: Dr. Garza Primary Care Provider: Geeta Anders History of Present Illness History of Present Illness Ms. Almita Mckinley is a pleasant 65 year old female with history of ddq-xdlotss-jjxrbrzvf diabetes mellitus. And recent hip surgery of the left side back in January 2021. Presents today to the emergency department as she was found at the [place] [facility] that she has low blood pressure. Patient was further evaluated in the ER was found to have UTI per hospitalist and ED evaluation and a CT scan of the abdomen and pelvis was done that showed incidental finding of ileocolonic intussusception. Patient denies any nausea vomiting fevers or chills or any signs or symptoms of bowel obstruction. Last bowel movement was yesterday and was nonbloody and today she has been passing gas as well as during the clinical encounter. Lungs: Coarse reticular interstitial lung change. Underlying centrilobular emphysema. Liver: Liver steatosis. Gallbladder and bile ducts: Cholecystectomy. Nondilated biliary system. Pancreas: Atrophic pancreas without lesion. Spleen: Splenic granulomas. Negative for splenomegaly. Adrenal glands: Normal. No mass. Kidneys and ureters: Simple left renal upper pole cortically based cyst measures 3.3 cm x 3.6 cm. No dedicated imaging follow-up recommended. No hydronephrosis. No calcified renal stones. Stomach and bowel: Surgical bypass changes of the stomach are apparent without complication identified. No dilated loops of bowel are identified. Ileocolic intussusception is noted conspicuous on axial image 92 and sagittal image 52. Negative for bowel pneumatosis. No obvious bowel wall lead point mass, however cannot be excluded given the pathology present. Small bowel surgical anastomosis left lower quadrant with unremarkable appearance. Appendix:? Not seen. Intraperitoneal space: Trace pelvic free fluid. No loculation. No free air. Vasculature: Extensive calcified plaques of abdominal aorta. No aneurysm. Lymph nodes: Unremarkable. No enlarged lymph nodes. Urinary bladder: Decompressed bladder. Reproductive: Unremarkable as visualized. Bones/joints: Old left femur fracture with surgical fixation. Heterotopic ossification around the fracture. Bones are demineralized. Grade 1 L4-L5 spondylolisthesis secondary to facet joint arthropathy. No suspicious bone lesion. Soft tissues: Body wall anasarca. Atrophic but unremarkable lumbar paraspinal muscles. CT/CT abdomen pelvis wo con [id number] IMPRESSION: 1. Ileocolic intussusception. 2. Urgent surgical consultation is recommended. Also based on blood work that showed CBC in the form of WBC count 14.6, hemoglobin 11, platelet count of 316. A base deficit of -7.3, sodium 131, potassium 5 and serum creatinine 0.7. Also patient was found to have a serum lactic acid of 8.6. And serum albumin of 2.1 During the encounter patient's blood pressure was about 110/70 approximately and heart rate about 105. No fevers. And patient continues to deny any abdominal pain. Based on the CT scan findings general surgery was consulted for further evaluation. Patient was seen and evaluated emergency department room #1 in the presence of nursing staff Annika Medications/Allergies Home Medications Medication Instructions Recorded Confirmed Last Taken Type biotin 10,000 mcg capsule 10,000 mcg PO DAILY 04/03/20 03/13/21 03/12/21 History calcium citrate 315 mg-vitamin D3 1 tab PO DAILY 04/03/20 03/13/21 03/12/21 History 5 mcg (200 unit) tablet (Calcium Citrate + D) coenzyme Q10 10 mg capsule (Co 10 mg PO TID 04/03/20 03/13/21 03/12/21 History Q-10) fluticasone propionate 50 1 spray INTRANASAL DAILY 04/03/20 03/13/21 Unknown History mcg/actuation nasal spray,suspension (Allergy Relief (fluticasone)) furosemide 20 mg tablet 20 mg PO DAILY 04/03/20 03/13/21 03/12/21 History metformin 500 mg tablet 1,000 mg PO BID 04/03/20 03/13/21 03/12/21 History multivitamin,qr-bdsk-thnrfoqy 1 tab PO DAILY 04/03/20 03/13/21 03/12/21 History (Complete Multivitamin) pantoprazole 40 mg tablet,delayed 40 mg PO DAILY 04/03/20 03/13/21 03/12/21 History release simvastatin 40 mg tablet 40 mg PO DAILY 04/03/20 03/13/21 03/12/21 History venlafaxine 150 mg 150 mg PO DAILY 04/03/20 03/13/21 02/28/21 History capsule,extended release 24 hr albuterol sulfate 90 mcg/actuation 2 puff INHALATION QID PRN 01/18/21 03/13/21 Unknown History aerosol inhaler meclizine 25 mg tablet 25 mg PO TID PRN 01/18/21 03/13/21 Unknown History quetiapine 25 mg tablet (Seroquel) 12.5 mg PO BID 01/18/21 03/13/21 03/12/21 History venlafaxine 75 mg capsule,extended 75 mg PO DAILY 01/18/21 03/13/21 03/12/21 History release 24 hr clonazepam 1 mg tablet 0.5 mg PO BID PRN #0 tab 01/30/21 03/13/21 01/17/21 Rx ferrous sulfate 325 mg (65 mg 325 mg PO EVERY OTHER DAY #90 tab 01/30/21 03/13/21 03/12/21 Rx iron) tablet,delayed release metoprolol tartrate 25 mg tablet 25 mg PO BID@0900,2100 #180 tab 01/30/21 03/13/21 03/12/21 Rx thiamine mononitrate (vit B1) 100 100 mg PO DAILY #90 tab 01/30/21 03/13/21 03/12/21 Rx mg tablet (Vitamin B-1 (mononitrate)) fluticasone furoate 200 1 ea INHALATION DAILY 03/13/21 03/13/21 Unknown History mcg-vilanterol 25 mcg/dose inhalation powder (Breo Ellipta) gabapentin 600 mg tablet 600 mg PO TID 03/13/21 03/13/21 03/12/21 History Allergies Allergy/AdvReac Type Severity Reaction Status Date / Time No Known Allergies Allergy Verified 12/25/20 11:48 PFSH Acute PFSH: Medical History Anxiety disorder Fall at home GERD (gastroesophageal reflux disease) High anion gap metabolic acidosis History of alcohol dependence Hyperlipidemia Hypertension Hyperthyroidism Intertrochanteric fracture of left hip Ketoacidosis Lactic acidosis Major depressive disorder Refeeding syndrome Sarcoidosis diagnosis per available outside records, with patient stating onset in , details unknown, never put on specific treatment per report Thyroid disorder Type 2 diabetes mellitus Vulvar carcinoma Surgical History History of carpal tunnel release History of gastric bypass Family History Other Cancer Social History Smoking and tobacco status: former smoker Alcohol intake: former Number of children: 0 Vitals/I&O/Wt Last Vital Signs Temp 98.5 F 03/13/21 15:17 Pulse 103 H 03/13/21 18:22 Resp 16 03/13/21 18:22 BP 141/77 03/13/21 18:22 Pulse Ox 97 03/13/21 18:22 03/13/21 03/13/21 03/13/21 06:59 14:59 22:59 Intake Total 50 / 50 Balance 50 / 50 Weight last 48 hrs Weight 120 lb Physical Exam Narrative: EXAM NARRATIVE: Patient is conscious alert oriented X3 No apparent distress BMI 21.3 Head and neck examination PERRLA no masses no cervical lymphadenopathy no jaundice Cardiac examination audible S1-S2 no murmurs no gallops no arrhythmias Chest is clear bilateral,abscence of Rhonchi or wheezes,no surgical emphysema Abdomen nontender nondistended soft no organomegaly guarding or rigidity/no signs of peritonitis There is some fullness towards the left side of the abdomen but no signs of peritonitis Presence of unstageable pressure injury ulcers located on bilateral buttocks and sacral area with black eschar. Physical examination was done in the presence of female clinic office manager nursing staff Annika. Data : 03/13/21 15:43 03/13/21 15:43 Micro: Microbiology 03/13/21 17:50 Blood Culture - Preliminary Blood SPECIMEN COLLECTED 03/13/21 17:41 Blood Culture - Preliminary Blood SPECIMEN COLLECTED A&P Assessment and plan (1) Ileocolic intussusception: After thorough history physical examination reviewing the chart and images of the CT scan of the abdomen and pelvis with my personal interpretation there is no distinct intussusception as it is suboptimal study in the absence of oral contrast yet certainly it is concerning incidental finding that needs to be followed up on. I did milieu counselor the patient for different options. 1-exploratory laparotomy to rule out any acute pathology that would explain patient's hypotension yet I did explain for the patient that she is a higher risk of potential complications due to her comorbidities and particularly with a low albumin of 2.1. That we will set her for compromise of wound healing and anastomotic leak if intervention would be warranted. 2-observation with IV fluid resuscitation broad-spectrum IV antibiotics and repeated physical examination with strict I's and O's. Close cardiac monitoring. Repeat CT scan of the abdomen pelvis in few hours with oral contrast and to compare to the current one. Patient elected to proceed with the second option and to have the CT scan repeated with oral contrast. I did discuss with Dr. Gomez over the phone the plan of care and patient's agreement to the second option so we can be all on the same page. Dr. Garza currently we will order the CT scan of the abdomen pelvis around 4 AM and will proceed accordingly. Any deterioration of the clinical picture I did educate the nursing staff to get a hold of me directly. Assurance and education All questions have been answered and all concerns have been addressed to patient's satisfaction. Status: Acute Consult Attestations Medical Necessity Statement: Patient require inpatient hospitalization in the ICU for repeated physical examination IV fluid resuscitation Coding Level of Care Code Acute Computer Science Professor for [facility] Diagnoses Ileocolic intussusception K56.1
[2021-03-13 19:01] LABS: Gamma Glutamyl Transferase 343 U/L (5-36); Lipase 9 U/L (13-60)
[2021-03-13 19:05] LABS: Alcohol Level < 10 mg/dL (0-10)
[2021-03-13] MEDS: folic acid 1 MG, multivitamin inj 10 ML, thiamine 100 MG in sodium chloride 0.9% 1,000 ML 252.8 MG IV (19:09)
[2021-03-13 19:10] LABS: Procalcitonin > 100.00 ng/mL (0-0.5)
[2021-03-13 19:12] LABS: LAB Peripheral Smear Sent for Review
[2021-03-13] MEDS: quetiapine 25 mg Tablet 12.5 MG PO (19:16)
[2021-03-13 19:18] VITALS: BP 108/78; PULSE 106; RESP 18
[2021-03-13 19:24] LABS: Vitamin B12 > 2000 pg/mL (232-1245)
[2021-03-13 20:07] LABS: Estmated Average Glucose 180; Hemoglobin A1C 7.9 % (4.0-6.0)
[2021-03-13 20:14] LABS: Ketone (Acetest) Serum Negative (Negative)
[2021-03-13 20:25] LABS: Lactic Acid level (Lactate) 6.6 mmol/L (0.5-2.2)
[2021-03-13 20:59] LABS: Amphetamines Screen Urine Negative (Negative); Barbiturates Screen Urine Negative (Negative); Benzodiazepines Screen Urine Negative (Negative); Cocaine Screen Urine Negative (Negative); Opiate Screen Urine Negative (Negative); PCP Screen Urine Negative (Negative); THC Screen Urine Negative (Negative)
[2021-03-13] MEDS: pantoprazole 40 mg SDV IVP (21:17)
[2021-03-13] MEDS: gabapentin 300 mg Capsule 600 MG PO (21:17)
[2021-03-13 21:29] LABS: Folate Level > 20.0 ng/mL (4.8-37.3)
[2021-03-13 22:06] LABS: Troponin 5 6HR 21.62 ng/L (0-10)
[2021-03-13 22:09] LABS: Troponin 5 6HR Delta -7.38 ng/L (0-12)
[2021-03-13] MEDS: sodium chloride 0.9% 1,000 ML 75 ML IV (23:52)
[2021-03-14] VITALS (7 sets, daily range): BP systolic 90–127; BP diastolic 61–89; PULSE 88–102; RESP 12–28; TEMP 36.2–36.6; O2SAT 94–98
[2021-03-14] MEDS: iohexol 300 mg/mL 50 mL Btl PO (03:59)
--- NOTE | 2021-03-14 04:00 | CTR_ITS ---
PROCEDURE INFORMATION: Exam: CT Abdomen And Pelvis Without Contrast Exam date and time: 03/14/2021 4:00 AM Age: 65 years old Clinical indication: Prior surgery; Surgery type: Gb. Gastric bypass. Hip. ; Patient HX: F/u for ileocecal intussusception. ; Additional info: Intussception, with oral contrast TECHNIQUE: Imaging protocol: Computed tomography of the abdomen and pelvis without contrast. Radiation optimization: All CT scans at this facility use at least one of these dose optimization techniques: automated exposure control; mA and/or kV adjustment per patient size (includes targeted exams where dose is matched to clinical indication); or iterative reconstruction. Other contrast: Oral, OMNI 300, 25 ML OF CONTRAST WITH 475 ML OF WATER.; COMPARISON: CT abdomen pelvis wo con [id number] 03/13/2021 6:07 PM RADIATION DOSE METRICS: Total DLP (mGy-cm): 870.39 FINDINGS: Pleural spaces: Trace left pleural effusion. Liver: Hepatic steatosis. Calcified hepatic granulomas. Gallbladder and bile ducts: Cholecystectomy. Pancreas: Atrophic pancreas. Spleen: Calcified splenic granulomas. Adrenal glands: Normal. No mass. Kidneys and ureters: Simple appearing left renal cyst. No hydronephrosis. Stomach and bowel: Postsurgical changes of Denise-en-Y gastric bypass. Incidental note of a small-bowel small-bowel intussusception in the left hemiabdomen. No evidence of bowel obstruction. The previously noted ileocolic intussusception has resolved. Appendix: No evidence of appendicitis. Intraperitoneal space: Small volume free fluid adjacent to the spleen and within the pelvis. Vasculature: Heavy burden of atherosclerotic plaque in the abdominal aorta and branch vessels. No aneurysm. Lymph nodes: Unremarkable. No enlarged lymph nodes. Urinary bladder: Unremarkable as visualized. Reproductive: Unremarkable as visualized. Bones/joints: Intramedullary alysa and screw fixation of a healing left intertrochanteric femur fracture with surrounding heterotopic calcification. Soft tissues: Anasarca. Subcutaneous calcifications over the bilateral gluteal regions. CT/CT abdomen pelvis wo con [id number] IMPRESSION: The previously noted ileocolic intussusception has resolved. No bowel obstruction. COMMENTS: Consistent with the [employer]'s Incidental Findings Committee white paper (J Am Hortensia Radiol 2018): Any incidental renal lesion less than 1 cm or classified as too small to characterize, or any incidental cystic renal lesion characterized as simple-appearing, is likely benign. No follow-up imaging is recommended for these lesions per consensus recommendations based on imaging criteria.
[2021-03-14 06:58] LABS: Alanine Aminotransferase 44 U/L (0-33); Alkaline Phosphatase 236 IU/L (35-105); Aspartate Amino Transferase 85 U/L (0-32); Blood Urea Nitrogen 5 mg/dL (8-23); Calcium 7.5 mg/dL (8.5-10.5); Carbon Dioxide 15 mmol/L (22-29); Chloride 100 mmol/L (98-107); Globulin 2.4 g/dL (1.3-4.6); Glomerular Filtration Rate 123.8 mL/min (90-130); Glucose 243 mg/dL (65-115); Osmolality Calculated 281 mOsm/kg (285-295); Sodium 133 mmol/L (136-145); Total Bilirubin 1.5 mg/dL (0.15-1.2); Total Protein 4.4 g/dL (6.6-8.7)
[2021-03-14 07:04] LABS: Anion Gap 22.5 (5-19); Potassium 4.5 mmol/L (3.5-5.1)
[2021-03-14 07:09] LABS: Magnesium 1.2 mg/dL (1.7-2.3); Phosphorus 2.6 mg/dL (2.5-4.5); Thyroid Stimulating Hormone 4.71 uIU/mL (0.27-4.20)
[2021-03-14 07:10] LABS: NT Pro B Type Natriuretic Pept 687 pg/mL (0-125); Procalcitonin 96.11 ng/mL (0-0.5)
[2021-03-14 07:15] LABS: Lactic Sepsis W/Reflex 3.9 mmol/L (0.5-2.2)
[2021-03-14 08:30] LABS: Reflex Lactate Order REFLEX LACTIC ORDERD
[2021-03-14 09:02] LABS: Basophils % 0.2 %; Eosinophils % 0.2 %; Lymphocytes # 2.8 10^3/uL (0.8-4.8); Mean Corpuscular HGB Conc 31.4 g/dL (30.0-36.0); Mean Corpuscular Hemoglobin 32.7 pg (28.0-34.0); Mean Corpuscular Volume 104.2 fl (81-99); Mean Platelet Volume 9.8 fL (7.4-10.4); Monocytes # 0.4 10^3/uL (0.2-0.9); Monocytes % 3.5 %; Neutrophils # 9.21 10^3/uL (1.8-7.7); Neutrophils % 73.6 %; Nucleated Red Blood Cells % 0 %; Platelet Count 212 10^3/cmm (130-400); Red Blood Count 3.36 10^6/uL (4.1-5.3); Red Cell Distribution Width 16.4 % (12.1-15.1); White Blood Count 12.5 10^3/uL (4.0-10.0)
--- NOTE | 2021-03-14 09:16 | PC.NURSE ---
This RN received report from RADHA Astorga at this time. Will assume care at this time.
[2021-03-14 09:29] LABS: Lactic Acid level (Lactate) 3.2 mmol/L (0.5-2.2)
--- NOTE | 2021-03-14 09:33 | PC.NURSE ---
BG 239 at this time.
[2021-03-14 09:47] LABS: Glucose Point of Care 239 mg/dL (70-110)
[2021-03-14] MEDS: gabapentin 300 mg Capsule 600 MG PO ×3 (10:32→20:41)
[2021-03-14] MEDS: FUROsemide 40 mg Tablet 20 MG PO (10:33)
[2021-03-14] MEDS: midodrine 5 mg TABLET 10 MG PO ×3 (10:33→20:41)
[2021-03-14] MEDS: atorvastatin 40 mg Tablet 20 MG PO (10:34)
[2021-03-14] MEDS: venlafaxine ER (24HR) 75 mg Capsule PO (10:34)
[2021-03-14] MEDS: thiamine 100 mg Tablet PO (10:34)
[2021-03-14] MEDS: piperacillin-tazobactam 3.375 GM in sodium chloride 0.9% (plus) 50 ML IV ×2 (10:36→16:59)
[2021-03-14] MEDS: pantoprazole 40 mg SDV IVP ×2 (10:41→18:23)
--- NOTE | 2021-03-14 11:17 | PC.NURSE ---
This RN gave report to RADHA Willoughby at this time who will assume care at this time.
[2021-03-14 12:08] LABS: Glucose Point of Care 222 mg/dL (70-110)
[2021-03-14] MEDS: insulin lispro 100 unit/1 mL SUBCUT ×2 (12:17→17:02)
[2021-03-14] MEDS: magnesium sulfate premix 4 GM/100 ML PREMIX IV (13:19)
[2021-03-14] MEDS: lactated ringers 1,000 ML 999 ML IV (13:26)
[2021-03-14] MEDS: vancomycin 1,000 MG in sodium chloride 0.9% 250 ML 250 MG IV (15:52)
[2021-03-14] MEDS: sodium chloride 0.9% 1,000 ML 75 ML IV (16:59)
[2021-03-14] MEDS: quetiapine 25 mg Tablet 12.5 MG PO (17:01)
--- NOTE | 2021-03-14 17:08 | PC.NURSE ---
Notified Dr Garza, patient came to me from ER. she had an order for Sodium Bicarb scheduled at 0818 that was not administered. Do you still want that administered. Pharmacy is asking Per Dr Garza, discontinue order.
--- NOTE | 2021-03-14 17:24 | PM.PN ---
Subjective Subjective: Interval history: Patient was seen this morning, she is alert oriented x3, follows all commands, no abdominal pain complaints overnight, is passing gas from below, no nausea, no vomiting, no blood or black stools, Vitals/I&O/Wt Last Vital Signs Temp 97.5 F L 03/14/21 16:00 Pulse 101 H 03/14/21 16:00 Resp 18 03/14/21 16:00 BP 127/83 03/14/21 16:00 Pulse Ox 97 03/14/21 16:00 03/14/21 03/14/21 03/14/21 06:59 14:59 22:59 Intake Total 50 / 100 1035.833 / 2692.935 2869.2 / 4647.033 Balance 50 / 100 1035.833 / 3209.002 6012.2 / 4647.033 Weight last 48 hrs Weight 54.431 kg Physical Exam Const: COMMON NORMALS: no acute distress and patient oriented x3 Resp: COMMON NORMALS: normal respiratory effort, No retractions, No use of accessory muscles and clear to auscultation bilaterally AUSCULTATION: clear to auscultation bilaterally Cardio: COMMON NORMALS: regular rate, regular rhythm, S1 normal heart sound present and S2 normal heart sound present RATE: regular rate RHYTHM: regular rhythm HEART SOUNDS: S1 normal heart sound present and S2 normal heart sound present GI: COMMON NORMALS: Normal to inspection, nondistended, normoactive bowel sounds present, Soft to palpation, non-tender, No hepatosplenomegaly present and no masses PALPATION: Yes Soft to palpation and Yes No hepatosplenomegaly present Extremity: COMMON NORMALS: no pedal edema Neuro: COMMON NORMALS: patient oriented x3 Psych: COMMON NORMALS: mental status grossly normal Data : 03/14/21 08:50 03/14/21 06:40 Micro: Microbiology 03/13/21 16:10 Urine Culture - Preliminary Urine,Clean Catch Gram Negative Rods 03/13/21 17:50 Blood Culture - Preliminary Blood SPECIMEN COLLECTED 03/13/21 17:41 Blood Culture - Preliminary Blood SPECIMEN COLLECTED A&P Assessment and plan (1) Moderate protein-calorie malnutrition: Status: Acute (2) Lactic acidosis: Status: Acute (3) High anion gap metabolic acidosis: Status: Acute (4) Major depressive disorder: Status: Acute (5) Deep tissue injury: Status: Acute (6) Sepsis: Status: Acute (7) UTI (urinary tract infection): Status: Acute (8) Type 2 diabetes mellitus: Status: Acute Qualifiers: Diabetes mellitus editor producer insulin use: without editor producer use Diabetes mellitus complication status: with neurologic complications Diabetes mellitus complication detail: with unspecified neuropathy Qualified Code(s): E11.40 - Type 2 diabetes mellitus with diabetic neuropathy, unspecified Plan Sepsis, has resolved -Secondary to UTI -However does have elevated bili, alk phos, LFTs -On admission blood pressure 134/75, pulse 110, respiratory 20, on room air, alert oriented x3, lactic acid 8.6, pH 7.42, white blood cell count 14.6, procalcitonin over 100 Plan: -Follow urine cultures, blood cultures -Vancomycin, Zosyn -Full code -Lovenox for DVT prophylaxis Ileocolonic intussusception -Repeat CT scan abdomen pelvis with oral contrast shows resolved intussusception -No complaints of abdominal pain, passing gas, no nausea, no vomiting -Serial abdominal exams -General surgery on consult -Advance diet as tolerated Lactic acidosis, improved to 3.6 -Has a history of severe lactic acidosis in the past -Serum ketones pending -Possibly starvation ketosis -Possibly related to Metformin -Possibility of sepsis -Possibly due to dehydration -Monitor serum lactic acids Increased anion gap metabolic acidosis -Has a history of this on her past hospitalization -Serum ketones negative -Likely secondary to lactic acidosis as above, starvation ketosis, dehydration -Continue IV fluids Macrocytic anemia -Continue to monitor History of alcoholism, banana bag, continue thiamine, B12, folate History of thyroid disorder, Type 2 diabetes mellitus, depending on ketones as above, i low-dose sliding scale Moderate protein calorie malnutrition, add Ensure with meals Major depressive disorder, continue home medications Elevated troponins,, likely secondary sepsis as above, serial troponins, serial EKGs Elevated T bili, AST, alk phos, shows fatty liver disease, no intra or extrahepatic biliary duct dilatation Sacral, lower extremity DTI's, with a black eschar, general wound care, will discuss with surgery Attestations Medical Necessity Statement*: Patient requires hospitalization for UTI, lactic acidosis Coding Level of Care Code Acute Promotions Officer for Chg Fwd Diagnoses Moderate protein-calorie malnutrition E44.0 Lactic acidosis E87.2 High anion gap metabolic acidosis E87.2 Major depressive disorder F32.9 Deep tissue injury T14.8XXA Sepsis A41.9 UTI (urinary tract infection) N39.0 Type 2 diabetes mellitus E11.40 Diabetes mellitus editor producer insulin use: without editor producer use Diabetes mellitus complication status: with neurologic complications Diabetes mellitus complication detail: with unspecified neuropathy
[2021-03-14 17:32] LABS: Glucose Point of Care 233 mg/dL (70-110)
--- NOTE | 2021-03-14 17:32 | PC.PT ---
Patient busy with nursing assessment at this time, will evaluate in a.m.
--- NOTE | 2021-03-14 18:01 | US_ITS ---
WS: [id number] ULTRASOUND ABDOMEN LIMITED CLINICAL INFORMATION: ruq pain COMPARISON: None. FINDINGS: Technically difficult examination due to bowel gas and patient mobility Liver Size: Mild hepatomegaly Craniocaudal length: 16.6 cm. Echogenicity: Coarse Surface nodularity: None. Mass (size and location): None. Bile ducts Intrahepatic ducts: Normal. Common bile duct diameter: 0.6 cm. Gallbladder Prior cholecystectomy Pancreas Not well visualized Right kidney: Normal. Hydronephrosis: None. Size: 10.4 cm x 4.9 cm x 4.4 cm. Abdominal aorta and IVC Visualized portions are normal. Ascites: None. US/US gall bladder [id number] IMPRESSION: Technically difficult study due to bowel gas and patient mobility 1. Mild hepatomegaly with diffuse fatty infiltration. 2. Prior cholecystectomy. 3. No hydronephrosis in right kidney. 4. Normal common bile duct measuring 5.5 mm.
--- NOTE | 2021-03-14 18:22 | PC.NURSE ---
rcvd verbal order to paint wounds with betadine BID, paint sacral wounds, wounds to Left heal and leg and to right leg wound.
--- NOTE | 2021-03-14 18:30 | PM.PN ---
Subjective Subjective: Interval history: Feels better CT repeat Liver: Hepatic steatosis. Calcified hepatic granulomas. Gallbladder and bile ducts: Cholecystectomy. Pancreas: Atrophic pancreas. Spleen: Calcified splenic granulomas. Adrenal glands: Normal. No mass. Kidneys and ureters: Simple appearing left renal cyst. No hydronephrosis. Stomach and bowel: Postsurgical changes of Denise-en-Y gastric bypass. Incidental note of a small-bowel small-bowel intussusception in the left hemiabdomen. No evidence of bowel obstruction. The previously noted ileocolic intussusception has resolved. Appendix: No evidence of appendicitis. Intraperitoneal space: Small volume free fluid adjacent to the spleen and within the pelvis. Vasculature: Heavy burden of atherosclerotic plaque in the abdominal aorta and branch vessels. No aneurysm. Lymph nodes: Unremarkable. No enlarged lymph nodes. Urinary bladder: Unremarkable as visualized. Reproductive: Unremarkable as visualized. Bones/joints: Intramedullary alysa and screw fixation of a healing left intertrochanteric femur fracture with surrounding heterotopic calcification. Soft tissues: Anasarca. Subcutaneous calcifications over the bilateral gluteal regions. CT/CT abdomen pelvis con [id number] IMPRESSION: The previously noted ileocolic intussusception has resolved. No bowel obstruction. Medications: Reviewed: Yes Vitals/I&O/Wt Last Vital Signs Temp 97.5 F L 03/14/21 16:00 Pulse 101 H 03/14/21 16:00 Resp 18 03/14/21 16:00 BP 127/83 03/14/21 16:00 Pulse Ox 97 03/14/21 16:00 03/14/21 03/14/21 03/14/21 06:59 14:59 22:59 Intake Total 50 / 100 1035.833 / 3453.707 8865.2 / 4647.033 Balance 50 / 100 1035.833 / 2645.245 8778.2 / 4647.033 Weight last 48 hrs Weight 142 lb 4.8 oz Weight 120 lb Physical Exam Narrative: EXAM NARRATIVE: Patient is conscious alert oriented X3 No apparent distress BMI 25.2 Head and neck examination PERRLA no masses no cervical lymphadenopathy no jaundice Abdomen nontender nondistended soft no organomegaly guarding or rigidity/no signs of peritonitis Data : 03/14/21 08:50 03/14/21 06:40 Micro: Microbiology 03/13/21 17:50 Blood Culture - Preliminary Blood NEGATIVE TO DATE 03/13/21 17:41 Blood Culture - Preliminary Blood NEGATIVE TO DATE 03/13/21 16:10 Urine Culture - Preliminary Urine,Clean Catch Gram Negative Rods A&P Assessment and plan (1) Ileocolic intussusception: Can advance diet as tolerated Avoid constipation Appropriate hydration No indication for surgical intervention at this point. Assurance and education All questions have been answered and all concerns have been addressed to patient's satisfaction. Status: Resolved (2) Pressure injury, unstageable, with eschar: Patient has multiple unstageable with eschar pressure injury ulcers located on the sacral,bilateral gluteal and bilateral lower extremities. Plan from surgical standpoint of view: 1-nutrition optimization 2-wound care in the form of Betadine paint twice a day 3-management of medical comorbidities 4-physical therapy consultation when needed 5-frequent turning in bed every 2 hour 6-appropriate mattress 7-educating patient and family about pressure injury ulcers and set expectations 8-follow-up at the wound care center as needed Asurance and education All questions have been answered and all concerns have been addressed to patient's satisfaction. Status: Acute Attestations Medical Necessity Statement*: Per admitting service Coding Level of Care Code Acute Drafter Plumbing for [facility] Filiberto Diagnoses Ileocolic intussusception K56.1 Pressure injury, unstageable, with eschar L89.95
[2021-03-14 23:54] LABS: Glucose Point of Care 109 mg/dL (70-110)
[2021-03-15] VITALS: BP 104/72; PULSE 80; RESP 14; TEMP 36.5; O2SAT 92
[2021-03-15] MEDS: piperacillin-tazobactam 3.375 GM in sodium chloride 0.9% (plus) 50 ML IV ×4 (00:36→23:02)
[2021-03-15 04:00] VITALS: BP 106/69; PULSE 111; RESP 14; TEMP 36.4; O2SAT 99
[2021-03-15] MEDS: vancomycin 1,000 MG in sodium chloride 0.9% 250 ML 250 MG IV (05:35)
[2021-03-15] MEDS: pantoprazole 40 mg SDV IVP ×2 (06:08→17:45)
[2021-03-15] MEDS: sodium chloride 0.9% 1,000 ML 75 ML IV (06:09)
[2021-03-15 06:38] LABS: Basophils % 0.1 %; Eosinophils % 0.4 %; Hematocrit 29.2 % (37.0-47.0); Hemoglobin 9.4 g/dL (11.5-15.3); Lymphocytes # 2.5 10^3/uL (0.8-4.8); Lymphocytes % 22.7 %; Mean Corpuscular HGB Conc 32.2 g/dL (30.0-36.0); Mean Corpuscular Hemoglobin 32.4 pg (28.0-34.0); Mean Corpuscular Volume 100.7 fl (81-99); Mean Platelet Volume 9.9 fL (7.4-10.4); Monocytes # 0.3 10^3/uL (0.2-0.9); Monocytes % 3.2 %; Neutrophils # 7.87 10^3/uL (1.8-7.7); Nucleated Red Blood Cells % 0 %; Platelet Count 215 10^3/cmm (130-400); Red Cell Distribution Width 16.6 % (12.1-15.1); White Blood Count 10.8 10^3/uL (4.0-10.0)
[2021-03-15 06:48] LABS: Glucose Point of Care 159 mg/dL (70-110)
[2021-03-15 06:53] LABS: Lactic Sepsis W/Reflex 2.4 mmol/L (0.5-2.2)
[2021-03-15 07:13] LABS: Alanine Aminotransferase 34 U/L (0-33); Albumin Level 1.7 g/dL (3.5-5.2); Alkaline Phosphatase 210 IU/L (35-105); Anion Gap 18.6 (5-19); Aspartate Amino Transferase 69 U/L (0-32); Blood Urea Nitrogen 4 mg/dL (8-23); Calcium 6.9 mg/dL (8.5-10.5); Carbon Dioxide 20 mmol/L (22-29); Chloride 102 mmol/L (98-107); Globulin 2.3 g/dL (1.3-4.6); Glomerular Filtration Rate 123.8 mL/min (90-130); Glucose 162 mg/dL (65-115); Osmolality Calculated 284 mOsm/kg (285-295); Potassium 3.6 mmol/L (3.5-5.1); Sodium 137 mmol/L (136-145); Total Bilirubin 0.9 mg/dL (0.15-1.2)
[2021-03-15 07:25] LABS: Magnesium 1.7 mg/dL (1.7-2.3); Phosphorus 2.3 mg/dL (2.5-4.5)
[2021-03-15 08:00] VITALS: BP 122/74; PULSE 115; RESP 17; TEMP 36.8; O2SAT 97
[2021-03-15 08:29] LABS: Reflex Lactate Order REFLEX LACTIC ORDERD
[2021-03-15] MEDS: midodrine 5 mg TABLET 10 MG PO ×3 (08:31→21:35)
[2021-03-15] MEDS: insulin lispro 100 unit/1 mL SUBCUT ×2 (08:31→12:46)
[2021-03-15] MEDS: gabapentin 300 mg Capsule 600 MG PO ×3 (08:31→21:35)
[2021-03-15] MEDS: thiamine 100 mg Tablet PO (08:31)
[2021-03-15] MEDS: venlafaxine ER (24HR) 75 mg Capsule PO (08:31)
[2021-03-15] MEDS: atorvastatin 40 mg Tablet 20 MG PO (08:32)
[2021-03-15] MEDS: quetiapine 25 mg Tablet 12.5 MG PO (08:32)
[2021-03-15] MEDS: FUROsemide 40 mg Tablet 20 MG PO (08:32)
[2021-03-15] MEDS: ferrous sulfate EC 325 mg Tablet PO (08:32)
[2021-03-15 09:55] LABS: Lactic Acid level (Lactate) 2.4 mmol/L (0.5-2.2)
--- NOTE | 2021-03-15 09:56 | PC.CHAP ---
Pastoral Care Encounter/Spiritual Assessment Type of Contact [] Declined child day care teacher visit [] Patient/Family/Request visit [] Outpatient visit [] Follow-up visit [] Physician referral [] Code/Alert [x] Routine visit [] Staff referral [] Actively dying [] Patient sleeping [] Family support [] [] Out of room [] Palliative care [] [] Receiving care in room [] Pre-surgical visit [] Trauma [] Long length of stay [] ICU visit [] Other: Relational/Emotional Strength [x] Patient feels connected with others/family/visitors/staff [] Distress [] Loneliness/isolation [] Abandonment Spirituality of Patient [x] Person of [place]iana [x] Attends Rastafari of their [place] x[x] Believes in Prayer [] Reads Bible or Latter-Day materials [] There are Spiritual issues to be addressed Advanced Manufacturing Engineer Interventions [x] Prayer [] Active listening [] Non-anxious presence [] Spiritual/emotional support [] Crisis/trauma care [] Spiritual counseling [] Bereavement support [] Provided bereavement packet [] Provided Bible/devotional materials [] Provided toy/stuffed animal, coloring book to patient or family member [] Provided Communion [] Anointing/[place] [] Salvation [x] Completed spiritual assessment [] Other: Impact on Illness or Injury [] Angry [] Fearful [] Anxious [] Often cries [] Exhaustion [] Unable to work [] Unable to attend gnosticist [] Unable to walk/stand [] Unable to read [] Unable to drive [] Unable to eat/drink [] Unable to sleep [] Unable to be with family [] Patient intubated [] Other: Summary Time spent with patient 10 min
[2021-03-15 12:00] VITALS: BP 113/66; PULSE 110; RESP 16; TEMP 36.8
--- NOTE | 2021-03-15 14:28 | P.PN_ITS ---
Subjective Subjective: Interval history: Patient was seen this morning, she is alert oriented x3, currently brushing her teeth, she is happy that she got a bath, she feels better, she is worried about going back to the retirement, she tells me that she rather go home with her , she is worried about her deep tissue injuries, had a bowel movement yesterday, no nausea, vomiting, abdominal pain Vitals/I&O/Wt Last Vital Signs Temp 98.3 F 03/15/21 12:00 Pulse 110 H 03/15/21 12:00 Resp 16 03/15/21 12:00 BP 113/66 03/15/21 12:00 Pulse Ox 97 03/15/21 08:00 03/14/21 03/15/21 03/15/21 22:59 06:59 14:59 Intake Total 3781.2 / 4817.033 1527.5 / 6344.533 546.25 / 546.25 Balance 3781.2 / 4817.033 1527.5 / 6344.533 546.25 / 546.25 Weight last 48 hrs Weight 64.546 kg Weight 54.431 kg Physical Exam Const: COMMON NORMALS: no acute distress and patient oriented x3 Resp: COMMON NORMALS: normal respiratory effort, No retractions, No use of accessory muscles and clear to auscultation bilaterally AUSCULTATION: clear to auscultation bilaterally Cardio: COMMON NORMALS: regular rate, regular rhythm, S1 normal heart sound present and S2 normal heart sound present RATE: regular rate RHYTHM: regular rhythm HEART SOUNDS: S1 normal heart sound present and S2 normal heart sound present GI: COMMON NORMALS: Normal to inspection, nondistended, normoactive bowel sounds present, Soft to palpation, non-tender and No hepatosplenomegaly present PALPATION: Yes Soft to palpation and Yes No hepatosplenomegaly present Extremity: COMMON NORMALS: no pedal edema Neuro: COMMON NORMALS: patient oriented x3 Psych: COMMON NORMALS: mental status grossly normal Data : 03/15/21 06:30 03/15/21 06:30 Micro: Microbiology 03/13/21 16:10 Urine Culture - Final Urine,Clean Catch Escherichia coli esbl 03/13/21 17:50 Blood Culture - Preliminary Blood NEGATIVE TO DATE 03/13/21 17:41 Blood Culture - Preliminary Blood NEGATIVE TO DATE A&P Assessment and plan (1) Moderate protein-calorie malnutrition: Status: Acute (2) Lactic acidosis: Status: Acute (3) High anion gap metabolic acidosis: Status: Acute (4) Major depressive disorder: Status: Acute (5) Deep tissue injury: Status: Acute (6) Sepsis: Status: Acute (7) UTI (urinary tract infection): Status: Acute (8) Type 2 diabetes mellitus: Status: Acute Qualifiers: Diabetes mellitus tank terminal gauger insulin use: without tank terminal gauger use Diabetes mellitus complication status: with neurologic complications Diabetes mellitus complication detail: with unspecified neuropathy Qualified Code(s): E11.40 - Type 2 diabetes mellitus with diabetic neuropathy, unspecified Plan Sepsis, has resolved -Secondary to UTI -However does have elevated bili, alk phos, LFTs -On admission blood pressure 134/75, pulse 110, respiratory 20, on room air, alert oriented x3, lactic acid 8.6, pH 7.42, white blood cell count 14.6, procalcitonin over 100 -Urine cultures show ESBL E. coli sensitive to Zosyn Plan: -Follow urine cultures, blood cultures -Stop vancomycin, continue Zosyn -Full code -Lovenox for DVT prophylaxis Ileocolonic intussusception -Repeat CT scan abdomen pelvis with oral contrast shows resolved intussusception -No complaints of abdominal pain, passing gas, no nausea, no vomiting -Serial abdominal exams -General surgery on consult -Advance diet as tolerated Lactic acidosis, resolving -Has a history of severe lactic acidosis in the past -Serum ketones pending -Possibly starvation ketosis -Possibly related to Metformin -Possibility of sepsis -Possibly due to dehydration -Monitor serum lactic acids Increased anion gap metabolic acidosis -Has a history of this on her past hospitalization -Serum ketones negative -Likely secondary to lactic acidosis as above, starvation ketosis, dehydration -Continue IV fluids Macrocytic anemia -Continue to monitor History of alcoholism, banana bag, continue thiamine, B12, folate History of thyroid disorder, Type 2 diabetes mellitus, depending on ketones as above, i low-dose sliding scale Moderate protein calorie malnutrition, add Ensure with meals Major depressive disorder, continue home medications Elevated troponins,, likely secondary sepsis as above, serial troponins, serial EKGs Elevated T bili, AST, alk phos, shows fatty liver disease, no intra or extrahepatic biliary duct dilatation Sacral, lower extremity DTI's, with a black eschar, general wound care, beta iodine paint twice a day, [employer] Attestations Medical Necessity Statement*: Patient requires hospitalization for UTI, altered mental status, sepsis Coding Level of Care Code Acute Glue Mounter Operator for Chg Fwd Diagnoses Moderate protein-calorie malnutrition E44.0 Lactic acidosis E87.2 High anion gap metabolic acidosis E87.2 Major depressive disorder F32.9 Deep tissue injury T14.8XXA Sepsis A41.9 UTI (urinary tract infection) N39.0 Type 2 diabetes mellitus E11.40 Diabetes mellitus tank terminal gauger insulin use: without skilled nursing use Diabetes mellitus complication status: with neurologic complications Diabetes mellitus complication detail: with unspecified neuropathy
[2021-03-15 16:00] VITALS: BP 138/86; PULSE 96; RESP 16; TEMP 37; O2SAT 96
[2021-03-15 17:40] LABS: Glucose Point of Care 121 mg/dL (70-110)
[2021-03-15 20:00] VITALS: BP 112/74; PULSE 102; RESP 16; TEMP 36.8; O2SAT 93
[2021-03-15 21:27] LABS: Glucose Point of Care 139 mg/dL (70-110)
[2021-03-16] VITALS: BP 126/76; PULSE 93; RESP 17; TEMP 36.7; O2SAT 97
[2021-03-16] MEDS: CLONazepam 1 mg Tablet 0.5 MG PO (00:07)
[2021-03-16] MEDS: acetaminophen 325 mg Tablet 650 MG PO (00:08)
[2021-03-16 04:00] VITALS: BP 116/72; PULSE 102; RESP 16; TEMP 36.5; O2SAT 97
[2021-03-16] MEDS: pantoprazole 40 mg SDV IVP ×2 (06:07→18:29)
[2021-03-16 06:20] LABS: Glucose Point of Care 146 mg/dL (70-110)
[2021-03-16 06:49] LABS: Glucose Point of Care 128 mg/dL (70-110)
[2021-03-16 07:06] LABS: Basophils % 0.1 %; Eosinophils % 0.1 %; Hematocrit 30.5 % (37.0-47.0); Hemoglobin 9.7 g/dL (11.5-15.3); Lymphocytes # 1.9 10^3/uL (0.8-4.8); Lymphocytes % 21.9 %; Mean Corpuscular HGB Conc 31.8 g/dL (30.0-36.0); Mean Corpuscular Hemoglobin 32.7 pg (28.0-34.0); Mean Corpuscular Volume 102.7 fl (81-99); Mean Platelet Volume 9.9 fL (7.4-10.4); Monocytes # 0.4 10^3/uL (0.2-0.9); Monocytes % 4.3 %; Neutrophils # 6.27 10^3/uL (1.8-7.7); Nucleated Red Blood Cells % 0.2 %; Platelet Count 190 10^3/cmm (130-400); Red Blood Count 2.97 10^6/uL (4.1-5.3); Red Cell Distribution Width 17.1 % (12.1-15.1); White Blood Count 8.6 10^3/uL (4.0-10.0)
[2021-03-16 07:21] LABS: Alanine Aminotransferase 31 U/L (0-33); Albumin Level 1.6 g/dL (3.5-5.2); Alkaline Phosphatase 191 IU/L (35-105); Anion Gap 21.2 (5-19); Aspartate Amino Transferase 53 U/L (0-32); Blood Urea Nitrogen 4 mg/dL (8-23); Calcium 7.3 mg/dL (8.5-10.5); Carbon Dioxide 17 mmol/L (22-29); Chloride 101 mmol/L (98-107); Globulin 2.2 g/dL (1.3-4.6); Glomerular Filtration Rate 160.2 mL/min (90-130); Glucose 118 mg/dL (65-115); Lactic Sepsis W/Reflex 1.3 mmol/L (0.5-2.2); Osmolality Calculated 280 mOsm/kg (285-295); Potassium 3.2 mmol/L (3.5-5.1); Sodium 136 mmol/L (136-145); Total Protein 3.8 g/dL (6.6-8.7)
[2021-03-16 07:35] LABS: Magnesium 1.5 mg/dL (1.7-2.3)
[2021-03-16 08:00] VITALS: BP 112/89; PULSE 79; RESP 17; TEMP 37.2; O2SAT 95
[2021-03-16] MEDS: piperacillin-tazobactam 3.375 GM in sodium chloride 0.9% (plus) 50 ML IV ×3 (08:53→22:43)
[2021-03-16] MEDS: atorvastatin 40 mg Tablet 20 MG PO (08:55)
[2021-03-16] MEDS: thiamine 100 mg Tablet PO (08:55)
[2021-03-16] MEDS: venlafaxine ER (24HR) 75 mg Capsule PO (08:55)
[2021-03-16] MEDS: gabapentin 300 mg Capsule 600 MG PO ×3 (08:55→20:42)
[2021-03-16] MEDS: midodrine 5 mg TABLET 10 MG PO ×3 (08:55→20:42)
[2021-03-16] MEDS: FUROsemide 40 mg Tablet 20 MG PO (08:55)
[2021-03-16] MEDS: magnesium sulfate premix 4 GM/100 ML PREMIX IV (10:42)
--- NOTE | 2021-03-16 12:10 | PC.SOCIAL ---
IMM Update Updated pt's spouse on IMM. No questions voiced. Provided pt a copy. Initialed, dated, & timed copy in chart.
--- NOTE | 2021-03-16 14:16 | P.PN_ITS ---
Subjective Subjective: Interval history: Patient was seen this morning, she had minimal head trauma this morning, she hit her head against the railing, no headache, no blurry vision, no nausea, no vomiting she is hesitant about going back to skilled nursing in [place] as she has developed significant deep tissue injuries she feels is secondary to the poor care she has received, she feels that she will need increased help, she feels that she does not have a lot of help at home, she is wondering if we can see if another skilled nursing could accept her Vitals/I&O/Wt Last Vital Signs Temp 98.9 F 03/16/21 08:00 Pulse 79 03/16/21 08:00 Resp 17 03/16/21 08:00 BP 112/89 03/16/21 08:00 Pulse Ox 95 03/16/21 08:00 03/15/21 03/16/21 03/16/21 22:59 06:59 14:59 Intake Total 290 / 836.25 50 / 886.25 390 / 390 Output Total Balance 290 / 836.25 49 / 885.25 390 / 390 Weight last 48 hrs Weight 64.546 kg Physical Exam Const: COMMON NORMALS: no acute distress and patient oriented x3 Resp: COMMON NORMALS: normal respiratory effort, No retractions, No use of accessory muscles and clear to auscultation bilaterally AUSCULTATION: clear to auscultation bilaterally Cardio: COMMON NORMALS: regular rate, regular rhythm, S1 normal heart sound present and S2 normal heart sound present RATE: regular rate RHYTHM: regular rhythm HEART SOUNDS: S1 normal heart sound present and S2 normal heart sound present GI: COMMON NORMALS: Normal to inspection, nondistended, normoactive bowel sounds present, Soft to palpation and non-tender PALPATION: Yes Soft to palpation Extremity: COMMON NORMALS: no pedal edema Neuro: COMMON NORMALS: patient oriented x3 Psych: COMMON NORMALS: mental status grossly normal Skin: NARRATIVE SKIN EXAM: -Deep tissue injury, present over sacrum, largest measuring 2 x 3 cm irregular borders, with black eschar -Multiple DTI's over right and left thigh, largest measuring 1 x 1 cm, irregular borders, black eschar Multiple DTI's present over right calf, largest measuring 1 x 1 cm, irregular borders Data : 03/16/21 06:55 03/16/21 06:55 Micro: Microbiology 03/13/21 16:10 Urine Culture - Final Urine,Clean Catch Escherichia coli esbl A&P Assessment and plan (1) Moderate protein-calorie malnutrition: Status: Acute (2) Lactic acidosis: Status: Acute (3) High anion gap metabolic acidosis: Status: Acute (4) Major depressive disorder: Status: Acute (5) Deep tissue injury: Status: Acute (6) Sepsis: Status: Acute (7) UTI (urinary tract infection): Status: Acute (8) Type 2 diabetes mellitus: Status: Acute Qualifiers: Diabetes mellitus jail insulin use: without superintendent container terminal use Diabetes mellitus complication status: with neurologic complications Diabetes mellitus complication detail: with unspecified neuropathy Qualified Code(s): E11.40 - Type 2 diabetes mellitus with diabetic neuropathy, unspecified Plan Sepsis, has resolved -Secondary to UTI -However does have elevated bili, alk phos, LFTs -On admission blood pressure 134/75, pulse 110, respiratory 20, on room air, alert oriented x3, lactic acid 8.6, pH 7.42, white blood cell count 14.6, procal citonin over 100 -Urine cultures show ESBL E. coli sensitive to Zosyn Plan: -Follow urine cultures, blood cultures - continue Zosyn for 7 days -Full code -Lovenox for DVT prophylaxis Ileocolonic intussusception -Repeat CT scan abdomen pelvis with oral contrast shows resolved intussusception -No complaints of abdominal pain, passing gas, no nausea, no vomiting -Serial abdominal exams -General surgery on consult -Advance diet as tolerated Lactic acidosis, resolving -Has a history of severe lactic acidosis in the past -Serum ketones pending -Possibly starvation ketosis -Possibly related to Metformin -Possibility of sepsis -Possibly due to dehydration -Monitor serum lactic acids Increased anion gap metabolic acidosis -Has a history of this on her past hospitalization -Serum ketones negative -Likely secondary to lactic acidosis as above, starvation ketosis, dehydration -Continue IV fluids Macrocytic anemia -Continue to monitor History of alcoholism, banana bag, continue thiamine, B12, folate History of thyroid disorder, Type 2 diabetes mellitus, depending on ketones as above, low-dose sliding scale Moderate protein calorie malnutrition, add Ensure with meals Major depressive disorder, continue home medications Elevated troponins,, likely secondary sepsis as above, serial troponins, serial EKGs Elevated T bili, AST, alk phos, shows fatty liver disease, no intra or extrah epatic biliary duct dilatation Sacral, lower extremity DTI's, with a black eschar, general wound care, beta iodine paint twice a day, [employer]iForm Attestations Medical Necessity Statement*: Patient requires hospitalization for UTI, DTI's, lactic acidosis Coding Level of Care Code Acute Financial Reporting Advisor for g [employer] Diagnoses Moderate protein-calorie malnutrition E44.0 Lactic acidosis E87.2 High anion gap metabolic acidosis E87.2 Major depressive disorder F32.9 Deep tissue injury T14.8XXA Sepsis A41.9 UTI (urinary tract infection) N39.0 Type 2 diabetes mellitus E11.40 Diabetes mellitus superintendent container terminal insulin use: without superintendent container terminal use Diabetes mellitus complication status: with neurologic complications Diabetes mellitus complication detail: with unspecified neuropathy
[2021-03-16 18:02] LABS: Glucose Point of Care 368 mg/dL (70-110)
[2021-03-16] MEDS: insulin lispro 100 unit/1 mL SUBCUT (18:28)
[2021-03-16 20:00] VITALS: BP 122/78; PULSE 84; RESP 18; TEMP 36.6; O2SAT 92
[2021-03-16 21:40] LABS: Glucose Point of Care 383 mg/dL (70-110)
[2021-03-17 00:10] VITALS: BP 115/73; PULSE 87; RESP 18; TEMP 36.4; O2SAT 97
[2021-03-17 03:43] VITALS: BP 117/66; PULSE 77; RESP 20; TEMP 36.6; O2SAT 95
[2021-03-17] MEDS: pantoprazole 40 mg SDV IVP ×2 (06:56→21:55)
[2021-03-17 07:26] VITALS: BP 125/81; PULSE 92; RESP 16; TEMP 36.9; O2SAT 99
[2021-03-17 08:17] LABS: Basophils % 0.3 %; Eosinophils % 0.4 %; Hematocrit 30.5 % (37.0-47.0); Hemoglobin 9.6 g/dL (11.5-15.3); Lymphocytes # 3.2 10^3/uL (0.8-4.8); Lymphocytes % 31.8 %; Mean Corpuscular HGB Conc 31.5 g/dL (30.0-36.0); Mean Corpuscular Hemoglobin 32.8 pg (28.0-34.0); Mean Corpuscular Volume 104.1 fl (81-99); Mean Platelet Volume 9.4 fL (7.4-10.4); Monocytes # 0.6 10^3/uL (0.2-0.9); Monocytes % 5.8 %; Neutrophils % 61.2 %; Nucleated Red Blood Cells # 0.1 /100WBC; Nucleated Red Blood Cells % 0.8 %; Platelet Count 205 10^3/cmm (130-400); Red Blood Count 2.93 10^6/uL (4.1-5.3); Red Cell Distribution Width 17.2 % (12.1-15.1)
[2021-03-17 08:39] LABS: Alanine Aminotransferase 26 U/L (0-33); Albumin Level 1.7 g/dL (3.5-5.2); Alkaline Phosphatase 190 IU/L (35-105); Aspartate Amino Transferase 33 U/L (0-32); Blood Urea Nitrogen 4 mg/dL (8-23); Calcium 6.8 mg/dL (8.5-10.5); Carbon Dioxide 20 mmol/L (22-29); Chloride 98 mmol/L (98-107); Globulin 2.5 g/dL (1.3-4.6); Glomerular Filtration Rate 223.3 mL/min (90-130); Glucose 99 mg/dL (65-115); Osmolality Calculated 275 mOsm/kg (285-295); Sodium 134 mmol/L (136-145); Total Bilirubin 0.7 mg/dL (0.15-1.2); Total Protein 4.2 g/dL (6.6-8.7)
[2021-03-17 08:40] LABS: Anion Gap 19.4 (5-19); Potassium 3.4 mmol/L (3.5-5.1)
[2021-03-17] MEDS: gabapentin 300 mg Capsule 600 MG PO ×3 (08:41→21:54)
[2021-03-17] MEDS: piperacillin-tazobactam 3.375 GM in sodium chloride 0.9% (plus) 50 ML IV ×3 (08:41→23:43)
[2021-03-17] MEDS: midodrine 5 mg TABLET 10 MG PO ×3 (08:41→21:55)
[2021-03-17] MEDS: FUROsemide 40 mg Tablet 20 MG PO (08:42)
[2021-03-17] MEDS: ferrous sulfate EC 325 mg Tablet PO (08:42)
[2021-03-17] MEDS: quetiapine 25 mg Tablet 12.5 MG PO ×2 (08:42→18:20)
[2021-03-17] MEDS: venlafaxine ER (24HR) 75 mg Capsule PO (08:42)
[2021-03-17] MEDS: thiamine 100 mg Tablet PO (08:42)
[2021-03-17] MEDS: atorvastatin 40 mg Tablet 20 MG PO (08:42)
[2021-03-17] MEDS: insulin lispro 100 unit/1 mL SUBCUT ×2 (08:46→13:35)
[2021-03-17 09:22] LABS: Glucose Point of Care 291 mg/dL (70-110)
[2021-03-17 10:57] VITALS: BP 118/77; PULSE 73; RESP 16; TEMP 36.6; O2SAT 93
[2021-03-17 12:09] LABS: Glucose Point of Care 187 mg/dL (70-110)
--- NOTE | 2021-03-17 12:23 | P.PN_ITS ---
Subjective Subjective: Interval history: Patient was seen this morning, she is more motivated with working with physical therapy, she is anxious in terms of which [place] [facility] can take her, anxious about going home without home health care, no nausea, no vomiting, eating appropriately, no chest pain, Vitals/I&O/Wt Last Vital Signs Temp 97.9 F 03/17/21 10:57 Pulse 73 03/17/21 10:57 Resp 16 03/17/21 10:57 BP 118/77 03/17/21 10:57 Pulse Ox 93 03/17/21 10:57 03/16/21 03/17/21 03/17/21 22:59 06:59 14:59 Intake Total 519.0909 / 1149.0909 650 / 1799.0909 480 / 480 Balance 519.0909 / 1149.0909 650 / 1799.0909 480 / 480 Physical Exam Const: COMMON NORMALS: no acute distress and patient oriented x3 Resp: COMMON NORMALS: normal respiratory effort, No retractions, No use of accessory muscles and clear to auscultation bilaterally AUSCULTATION: clear to auscultation bilaterally Cardio: COMMON NORMALS: regular rate, regular rhythm, S1 normal heart sound present and S2 normal heart sound present RATE: regular rate RHYTHM: regular rhythm HEART SOUNDS: S1 normal heart sound present and S2 normal heart sound present GI: COMMON NORMALS: Normal to inspection, nondistended, normoactive bowel sounds present, Soft to palpation, non-tender and No hepatosplenomegaly present PALPATION: Yes Soft to palpation and Yes No hepatosplenomegaly present Extremity: COMMON NORMALS: no pedal edema Neuro: COMMON NORMALS: patient oriented x3 Psych: COMMON NORMALS: mental status grossly normal Skin: NARRATIVE SKIN EXAM: -Deep tissue inju ry, present over s acrum, largest devan suring 2 x 3 cm ir regular borders, w ith black eschar -Multiple DTI's ov er right and left thigh, largest devan suring 1 x 1 cm, i rregular borders, black eschar Multi ple DTI's present over right calf, l argest measuring 1 x 1 cm, irregular borders Data : 03/17/21 08:05 03/17/21 08:05 A&P Assessment and plan (1) Moderate protein-calorie malnutrition: Status: Acute (2) Lactic acidosis: Status: Acute (3) High anion gap metabolic acidosis: Status: Acute (4) Major depressive disorder: Status: Acute (5) Deep tissue injury: Status: Acute (6) Sepsis: Status: Acute (7) UTI (urinary tract infection): Status: Acute (8) Type 2 diabetes mellitus: Status: Acute Qualifiers: Diabetes mellitus petroleum terminal plant operator insulin use: without petroleum terminal plant operator use Diabetes mellitus complication status: with neurologic complications Diabetes mellitus complication detail: with unspecified neuropathy Qualified Code(s): E11.40 - Type 2 diabetes mellitus with diabetic neuropathy, unspecified Plan Sepsis, has resolved -Secondary to UTI -However does have elevated bili, alk phos, LFTs -On admission blood pressure 134/75, pulse 110, respiratory 20, on room air, alert oriented x3, lactic acid 8.6, pH 7.42, white blood cell count 14.6, procalcitonin over 100 -Urine cultures show ESBL E. coli sensitive to Zosyn Plan: - continue Zosyn, total of 7 days of antibiotics -Full code -Lovenox for DVT prophylaxis Ileocolonic intussusception -Repeat CT scan abdomen pelvis with oral contrast shows resolved intussusception -No complaints of abdominal pain, passing gas, no nausea, no vomiting -Serial abdominal exams -General surgery on consult -Advance diet as tolerated Lactic acidosis, resolving -Has a history of severe lactic acidosis in the past -Serum ketones pending -Possibly starvation ketosis -Possibly related to Metformin, will discontinue Metformin on discharge -Possibility of sepsis -Possibly due to dehydration -Monitor serum lactic acids Increased anion gap metabolic acidosis -Has a history of this on her past hospitalization -Serum ketones negative -Likely secondary to lactic acidosis as above, starvation ketosis, dehydration -IV fluids have been stopped Macrocytic anemia -Continue to monitor History of alcoholism, banana bag, continue thiamine, B12, folate History of thyroid disorder, Type 2 diabetes mellitus, depending on ketones as above, low-dose sliding scale Moderate protein calorie malnutrition, add Ensure with meals Major depressive disorder, continue home medications Elevated troponins,, likely secondary sepsis as above, serial troponins, serial EKGs Elevated T bili, AST, alk phos, shows fatty liver disease, no intra or extrahepatic biliary duct dilatation Sacral, lower extremity DTI's, with a black eschar, general wound care, beta iodine paint twice a day, [employer], repositioning, increase protein in her diet Attestations Medical Necessity Statement*: Patient requires hospitalization for UTI, sacral DTI's Coding Level of Care Code Acute Jack Winder for Chg Fwd Diagnoses Moderate protein-calorie malnutrition E44.0 Lactic acidosis E87.2 High anion gap metabolic acidosis E87.2 Major depressive disorder F32.9 Deep tissue injury T14.8XXA Sepsis A41.9 UTI (urinary tract infection) N39.0 Type 2 diabetes mellitus E11.40 Diabetes mellitus petroleum terminal plant operator insulin use: without petroleum terminal plant operator use Diabetes mellitus complication status: with neurologic complications Diabetes mellitus complication detail: with unspecified neuropathy
--- NOTE | 2021-03-17 12:51 | PC.SOCIAL ---
Pg 2 IMM Explained to pt Pg 2 IMM. No questions voiced. Provided pt a copy. Initialed, dated, & timed a copy & placed in chart.
[2021-03-17] MEDS: potassium chloride ER 20 mEq Tablet 40 MEQ PO (13:36)
[2021-03-17 16:00] VITALS: BP 106/70; PULSE 82; RESP 16; TEMP 37.2; O2SAT 95
[2021-03-17] MEDS: CLONazepam 1 mg Tablet 0.5 MG PO (16:19)
[2021-03-17 17:30] LABS: Glucose Point of Care 139 mg/dL (70-110)
[2021-03-17 20:00] VITALS: BP 107/69; PULSE 108; RESP 18; TEMP 37.2; O2SAT 97
[2021-03-17 20:53] LABS: Glucose Point of Care 100 mg/dL (70-110)
[2021-03-18] VITALS: BP 95/66; PULSE 100; RESP 17; TEMP 37.3; O2SAT 97
[2021-03-18] MEDS: acetaminophen 325 mg Tablet 650 MG PO ×2 (00:33→17:32)
[2021-03-18 04:00] VITALS: BP 100/63; PULSE 107; RESP 19; TEMP 37.2; O2SAT 97
[2021-03-18 06:25] LABS: Basophils % 0.2 %; Eosinophils % 0.1 %; Hematocrit 29.7 % (37.0-47.0); Hemoglobin 9.5 g/dL (11.5-15.3); Lymphocytes # 2.8 10^3/uL (0.8-4.8); Lymphocytes % 26.6 %; Mean Corpuscular Hemoglobin 33.1 pg (28.0-34.0); Mean Corpuscular Volume 103.5 fl (81-99); Mean Platelet Volume 10.4 fL (7.4-10.4); Monocytes # 0.7 10^3/uL (0.2-0.9); Monocytes % 6.4 %; Neutrophils # 6.99 10^3/uL (1.8-7.7); Neutrophils % 66.2 %; Nucleated Red Blood Cells % 0 %; Platelet Count 183 10^3/cmm (130-400); Red Blood Count 2.87 10^6/uL (4.1-5.3); Red Cell Distribution Width 17.2 % (12.1-15.1); White Blood Count 10.6 10^3/uL (4.0-10.0)
[2021-03-18] MEDS: pantoprazole DR 40 mg Tablet PO ×2 (06:43→17:31)
[2021-03-18 08:00] VITALS: BP 109/66; PULSE 107; RESP 16; TEMP 36.6; O2SAT 96
[2021-03-18] MEDS: quetiapine 25 mg Tablet 12.5 MG PO ×2 (09:27→17:32)
[2021-03-18] MEDS: gabapentin 300 mg Capsule 600 MG PO (09:27)
[2021-03-18] MEDS: thiamine 100 mg Tablet PO (09:27)
[2021-03-18] MEDS: venlafaxine ER (24HR) 75 mg Capsule PO (09:27)
[2021-03-18] MEDS: atorvastatin 40 mg Tablet 20 MG PO (09:27)
[2021-03-18] MEDS: FUROsemide 40 mg Tablet 20 MG PO (09:27)
[2021-03-18] MEDS: midodrine 5 mg TABLET 10 MG PO ×3 (09:27→20:55)
[2021-03-18 11:22] LABS: Glucose Point of Care 229 mg/dL (70-110)
[2021-03-18 12:00] VITALS: BP 98/59; PULSE 108; RESP 16; TEMP 36.7; O2SAT 97
[2021-03-18] MEDS: insulin lispro 100 unit/1 mL SUBCUT ×2 (12:36→21:11)
[2021-03-18 14:39] LABS: Alanine Aminotransferase 23 U/L (0-33); Albumin Level 1.7 g/dL (3.5-5.2); Alkaline Phosphatase 211 IU/L (35-105); Anion Gap 22.6 (5-19); Aspartate Amino Transferase 32 U/L (0-32); Blood Urea Nitrogen 4 mg/dL (8-23); Carbon Dioxide 20 mmol/L (22-29); Chloride 100 mmol/L (98-107); Globulin 2.7 g/dL (1.3-4.6); Glomerular Filtration Rate 160.2 mL/min (90-130); Glucose 146 mg/dL (65-115); Magnesium 1.7 mg/dL (1.7-2.3); Osmolality Calculated 288 mOsm/kg (285-295); Phosphorus 3.4 mg/dL (2.5-4.5); Potassium 3.6 mmol/L (3.5-5.1); Sodium 139 mmol/L (136-145); Total Protein 4.4 g/dL (6.6-8.7)
[2021-03-18 15:12] LABS: Cortisol Random 13.95 ug/dL (2.47-19.5)
[2021-03-18 15:36] LABS: Free T4 Free Thyroxine 0.83 ng/dL (0.82-1.77); T3 Free 1.1 PG/ML (2.0-4.4)
--- NOTE | 2021-03-18 15:51 | PM.PN ---
Subjective Subjective: Interval history: Hospital course, labs appreciated. On examination patient sleeping comfortably in bed. Wakes up to physical stimulus. Slow to respond. Having episodes of forgetfulness during encounter. Denies any nausea, vomiting, headache. Concerned about discharge planning back to senior care. Discussed in detail that we have sent out referral to multiple nursing homes after which you have declined and we are waiting to hear back from the rest. Also discussed that unfortunately if all the nursing homes decline the only possibility would be either to go back to [facility] versus home with home health. Patient verbalized understanding. Medications: Reviewed: Yes Vitals/I&O/Wt Last Vital Signs Temp 98.1 F 03/18/21 12:00 Pulse 108 H 03/18/21 12:00 Resp 16 03/18/21 12:00 BP 98/59 03/18/21 12:00 Pulse Ox 97 03/18/21 12:00 03/18/21 03/18/21 03/18/21 06:59 14:59 22:59 Intake Total 110 / 1170 Balance 110 / 1170 Weight last 48 hrs Weight 66.814 kg Physical Exam Const: COMMON NORMALS: no acute distress and patient oriented x3 EXAM LIMITATIONS: other limitations (Occasional forgetfulness) GENERAL APPEARANCE: well kempt HENMT: COMMON NORMALS: normocephalic, Normal external nose present and oropharynx normal HEAD & SCALP: normocephalic FACE & SINUS: normal facial exam NOSE: Normal external nose present MOUTH: Normal oral and palatal mucosa present Eye: COMMON NORMALS: Equal, round and reactive pupils present, conjunctivae normal and no scleral icterus CONJUNCTIVA: Yes conjunctivae normal PUPIL: Yes Equal, round and reactive pupils present Neck/C-Spine: COMMON NORMALS: full ROM, no lymphadenopathy, no meningeal signs, no JVD and Thyroid normal THYROID: Thyroid normal Lymph: LYMPHATIC: no lymphadenopathy noted Chest: COMMONS NORMALS: normal inspection of the chest Resp: COMMON NORMALS: normal respiratory effort, No retractions, No use of accessory muscles and clear to auscultation bilaterally AUSCULTATION: clear to auscultation bilaterally Cardio: COMMON NORMALS: no JVD, regular rate, regular rhythm, S1 normal heart sound present, S2 normal heart sound present, No murmurs present (Cardio) and Peripheral pulses 2+ throughout RATE: regular rate RHYTHM: regular rhythm HEART SOUNDS: S1 normal heart sound present and S2 normal heart sound present PERIPHERAL PULSES: Peripheral pulses 2+ throughout GI: COMMON NORMALS: Normal to inspection, nondistended, normoactive bowel sounds present, Soft to palpation, non-tender, No hepatosplenomegaly present and no masses PALPATION: Yes Soft to palpation and Yes No hepatosplenomegaly present : COMMON NORMALS: Yes no CVA tenderness BLADDER/KIDNEY EXAM: Yes no CVA tenderness Back/Pelvis: COMMON NORMALS: no CVA tenderness Extremity: COMMON NORMALS: normal to inspection, full ROM, capillary refill normal, no calf tenderness and no pedal edema Neuro: COMMON NORMALS: patient oriented x3, CN's II-XII intact bilaterally, moves all extremities, no focal motor deficits and no sensory deficits noted MENINGEAL SIGNS: Yes no meningeal signs Psych: COMMON NORMALS: mental status grossly normal, Normal thought process present, cooperative and speech normal APPEARANCE: Yes well kempt SPEECH: Yes normal speech THOUGHT PROCESS: Normal thought process present Skin: COMMON NORMALS: turgor normal and no jaundice NARRATIVE SKIN EXAM: -Deep tissue inju ry, present over s acrum, largest devan suring 2 x 3 cm ir regular borders, w ith black eschar -Multiple DTI's ov er right and left thigh, largest devan suring 1 x 1 cm, i rregular borders, black eschar Multi ple DTI's present over right calf, l argest measuring 1 x 1 cm, irregular borders GENERAL SKIN EXAM: turgor normal Data : 03/18/21 05:51 03/18/21 13:24 A&P Assessment and plan (1) UTI due to extended-spectrum beta lactamase (ESBL) producing Escherichia coli: Status: Acute (2) Moderate protein-calorie malnutrition: Status: Acute (3) Deep tissue injury: Status: Acute (4) Type 2 diabetes mellitus: Status: Acute Qualifiers: Diabetes mellitus fdc insulin use: without rat exterminator use Diabetes mellitus complication status: with neurologic complications Diabetes mellitus complication detail: with unspecified neuropathy Qualified Code(s): E11.40 - Type 2 diabetes mellitus with diabetic neuropathy, unspecified (5) Sepsis: Status: Acute (6) Major depressive disorder: Status: Acute (7) High anion gap metabolic acidosis: Status: Acute (8) Lactic acidosis: Status: Acute (9) Physical deconditioning: Status: Acute (10) Ileocolic intussusception: Status: Resolved Plan Sepsis: Present on admission. Secondary to ESBL E. coli UTI. Resolved. Keep mean artery pressure over 65. Continue with Zosyn to finish a 7-day course. Hypotension: Currently on midodrine 10 mg oral 3 times a day. Mean arterial pressure being well maintained. Check random cortisol level to rule out adrenal insufficiency given severe protein energy malnutrition. Ileocolonic intussusception: Resolved. Tolerating diet appropriately. Appreciate surgical recommendations. Deep tissue injury: Sacral, lower extremity DTRs with black eschar. Wound care as per surgical recommendations. Frequent turning. Appropriate mattress. Lactic acidosis: History of severe lactic acidosis in the past. Possibly starvation ketosis versus related to Metformin. We'll discontinue Metformin on discharge. Increased anion gap metabolic acidosis: Most likely secondary to lactic acidosis and dehydration. Resolved. Macrocytic anemia -Continue to monitor History of alcoholism: Continue with oral thiamine. Folate levels appreciated. History of thyroid disorder: TSH elevated. Check free T3 and free T4. Depending on the results will start on levothyroxine Type 2 diabetes mellitus, depending on ketones as above, low-dose sliding scale Moderate protein calorie malnutrition, add Ensure with meals Major depressive disorder, continue home medications Elevated troponins,, likely secondary sepsis as above, serial troponins, serial EKGs Elevated T bili, AST, alk phos, shows fatty liver disease, no intra or extrahepatic biliary duct dilatation Full code. Carb consistent diet. Protonix for PUD prophylaxis. Heparin for DVT prophylaxis. Discharge planning: Plan to discharge to SNF. Patient comes in from [facility]. Family was discharged to different senior care. Currently awaiting placement. Has been declined by multiple SNF. Unfortunately if not able to find SNF placement plan will be to discharge [facility] versus home with home health. Patient verbalizes understanding. Will discuss further with family member. Attestations Medical Necessity Statement*: Requires further hospitalization for management of sepsis secondary to ESBL E. coli, severe protein energy malnutrition, deconditioning while safe discharge planning is sought. Time Spent in Patient Care: Greater than 35 minutes Coding Level of Care Code Acute Poison Information Specialist for Chg Fwd Diagnoses Moderate protein-calorie malnutrition E44.0 Lactic acidosis E87.2 High anion gap metabolic acidosis E87.2 Major depressive disorder F32.9 Deep tissue injury T14.8XXA Sepsis A41.9 Type 2 diabetes mellitus E11.40 Diabetes mellitus rat exterminator insulin use: without rat exterminator use Diabetes mellitus complication status: with neurologic complications Diabetes mellitus complication detail: with unspecified neuropathy UTI due to extended-spectrum beta lactamase (ESBL) producing Escherichia coli N39.0; B96.29; Z16.12 Physical deconditioning R53.81 Ileocolic intussusception K56.1
[2021-03-18 16:00] VITALS: BP 107/68; PULSE 104; RESP 18; TEMP 36.7; O2SAT 97
[2021-03-18] MEDS: piperacillin-tazobactam 3.375 GM in sodium chloride 0.9% (plus) 50 ML IV (16:38)
[2021-03-18] MEDS: gabapentin 300 mg Capsule PO ×2 (16:38→20:55)
[2021-03-18 16:47] LABS: Glucose Point of Care 121 mg/dL (70-110)
[2021-03-18] MEDS: ferrous sulfate EC 325 mg Tablet PO (17:32)
[2021-03-18 20:00] VITALS: BP 99/63; PULSE 89; RESP 16; TEMP 36.9; O2SAT 96
[2021-03-18 20:46] LABS: Glucose Point of Care 165 mg/dL (70-110)
[2021-03-19] VITALS: BP 117/71; PULSE 82; RESP 17; TEMP 36.8; O2SAT 96
[2021-03-19] MEDS: piperacillin-tazobactam 3.375 GM in sodium chloride 0.9% (plus) 50 ML IV ×4 (01:33→23:20)
[2021-03-19 04:00] VITALS: BP 100/68; PULSE 101; RESP 17; TEMP 37.4; O2SAT 96
[2021-03-19] MEDS: pantoprazole DR 40 mg Tablet PO ×2 (05:53→17:48)
[2021-03-19 06:43] LABS: Basophils % 0.4 %; Eosinophils % 0.1 %; Hematocrit 28.9 % (37.0-47.0); Hemoglobin 9.3 g/dL (11.5-15.3); Lymphocytes # 2.2 10^3/uL (0.8-4.8); Lymphocytes % 26.8 %; Mean Corpuscular HGB Conc 32.2 g/dL (30.0-36.0); Mean Corpuscular Hemoglobin 33.7 pg (28.0-34.0); Mean Corpuscular Volume 104.7 fl (81-99); Mean Platelet Volume 10.2 fL (7.4-10.4); Monocytes # 0.6 10^3/uL (0.2-0.9); Monocytes % 7.5 %; Neutrophils # 5.22 10^3/uL (1.8-7.7); Neutrophils % 64.5 %; Nucleated Red Blood Cells % 0 %; Platelet Count 174 10^3/cmm (130-400); Red Blood Count 2.76 10^6/uL (4.1-5.3); Red Cell Distribution Width 17.7 % (12.1-15.1); White Blood Count 8.1 10^3/uL (4.0-10.0)
[2021-03-19 06:54] LABS: Glucose Point of Care 119 mg/dL (70-110)
[2021-03-19 07:08] LABS: Alanine Aminotransferase 19 U/L (0-33); Albumin Level 1.7 g/dL (3.5-5.2); Alkaline Phosphatase 171 IU/L (35-105); Blood Urea Nitrogen 4 mg/dL (8-23); Calcium 7.1 mg/dL (8.5-10.5); Carbon Dioxide 23 mmol/L (22-29); Chloride 101 mmol/L (98-107); Globulin 2.5 g/dL (1.3-4.6); Glomerular Filtration Rate 160.2 mL/min (90-130); Glucose 101 mg/dL (65-115); Magnesium 1.7 mg/dL (1.7-2.3); Osmolality Calculated 287 mOsm/kg (285-295); Phosphorus 2.9 mg/dL (2.5-4.5); Sodium 140 mmol/L (136-145); Total Bilirubin 0.8 mg/dL (0.15-1.2); Total Protein 4.2 g/dL (6.6-8.7)
[2021-03-19 07:10] LABS: Anion Gap 19.7 (5-19); Aspartate Amino Transferase 27 U/L (0-32); Potassium 3.7 mmol/L (3.5-5.1)
[2021-03-19 07:21] VITALS: BP 113/71; PULSE 104; RESP 17; TEMP 36.7; O2SAT 94
[2021-03-19] MEDS: thiamine 100 mg Tablet PO (08:37)
[2021-03-19] MEDS: FUROsemide 40 mg Tablet 20 MG PO (08:37)
[2021-03-19] MEDS: midodrine 5 mg TABLET 10 MG PO ×3 (08:37→20:38)
[2021-03-19] MEDS: quetiapine 25 mg Tablet 12.5 MG PO ×2 (08:37→17:48)
[2021-03-19] MEDS: ferrous sulfate EC 325 mg Tablet PO ×2 (08:37→17:48)
[2021-03-19] MEDS: atorvastatin 40 mg Tablet 20 MG PO (08:38)
[2021-03-19] MEDS: gabapentin 300 mg Capsule PO ×3 (08:38→20:38)
[2021-03-19] MEDS: venlafaxine ER (24HR) 75 mg Capsule PO (08:38)
[2021-03-19 11:15] VITALS: BP 104/65; PULSE 105; RESP 18; TEMP 37.1; O2SAT 94
[2021-03-19 11:19] LABS: Glucose Point of Care 196 mg/dL (70-110)
[2021-03-19] MEDS: cosyntropin 0.25 mg SDV IVP (13:17)
[2021-03-19 13:44] LABS: Cosyntropin Baseline 12.08 mcg/dL
--- NOTE | 2021-03-19 14:23 | P.PN_ITS ---
Subjective Subjective: Interval history: No acute events overnight. Today morning on examination at bedside. Patient is awake alert sitting up in bed. Able to have complete conversation. Denies any nausea, vomiting, headache. Remains on room air. Slightly tachycardic with heart rate running in 100-105's. Medications: Reviewed: Yes Vitals/I&O/Wt Last Vital Signs Temp 98.8 F 03/19/21 11:15 Pulse 105 H 03/19/21 11:15 Resp 18 03/19/21 11:15 BP 104/65 03/19/21 11:15 Pulse Ox 94 03/19/21 11:15 03/18/21 03/19/21 03/19/21 22:59 06:59 14:59 Intake Total 170 / 170 50 / 220 430 / 430 Balance 170 / 170 50 / 220 430 / 430 Weight last 48 hrs Weight 66.814 kg Physical Exam Const: COMMON NORMALS: no acute distress and patient oriented x3 EXAM LIMITATIONS: other limitations (Occasional forgetfulness) GENERAL APPEARANCE: well kempt HENMT: COMMON NORMALS: normocephalic, Normal external nose present and oropharynx normal HEAD & SCALP: normocephalic FACE & SINUS: normal facial exam NOSE: Normal external nose present MOUTH: Normal oral and palatal mucosa present Eye: COMMON NORMALS: Equal, round and reactive pupils present, conjunctivae normal and no scleral icterus CONJUNCTIVA: Yes conjunctivae normal PUPIL: Yes Equal, round and reactive pupils present Neck/C-Spine: COMMON NORMALS: full ROM, no lymphadenopathy, no meningeal signs, no JVD and Thyroid normal THYROID: Thyroid normal Lymph: LYMPHATIC: no lymphadenopathy noted Chest: COMMONS NORMALS: normal inspection of the chest Resp: COMMON NORMALS: normal respiratory effort, No retractions, No use of accessory muscles and clear to auscultation bilaterally AUSCULTATION: clear to auscultation bilaterally Cardio: COMMON NORMALS: no JVD, regular rate, regular rhythm, S1 normal heart sound present, S2 normal heart sound present, No murmurs present (Cardio) and Peripheral pulses 2+ throughout RATE: regular rate RHYTHM: regular rhythm HEART SOUNDS: S1 normal heart sound present and S2 normal heart sound present PERIPHERAL PULSES: Peripheral pulses 2+ throughout GI: COMMON NORMALS: Normal to inspection, nondistended, normoactive bowel sounds present, Soft to palpation, non-tender, No hepatosplenomegaly present and no masses PALPATION: Yes Soft to palpation and Yes No hepatosplenomegaly present : COMMON NORMALS: Yes no CVA tenderness BLADDER/KIDNEY EXAM: Yes no CVA tenderness Back/Pelvis: COMMON NORMALS: no CVA tenderness Extremity: COMMON NORMALS: normal to inspection, full ROM, capillary refill normal, no calf tenderness and no pedal edema Neuro: COMMON NORMALS: patient oriented x3, CN's II-XII intact bilaterally, moves all extremities, no focal motor deficits and no sensory deficits noted MENINGEAL SIGNS: Yes no meningeal signs Psych: COMMON NORMALS: mental status grossly normal, Normal thought process present, cooperative and speech normal APPEARANCE: Yes well kempt SPEECH: Yes normal speech THOUGHT PROCESS: Normal thought process present Skin: COMMON NORMALS: turgor normal and no jaundice NARRATIVE SKIN EXAM: -Deep tissue inju ry, present over s acrum, largest devan suring 2 x 3 cm ir regular borders, w ith black eschar -Multiple DTI's ov er right and left thigh, largest devan suring 1 x 1 cm, i rregular borders, black eschar Multi ple DTI's present over right calf, l argest measuring 1 x 1 cm, irregular borders GENERAL SKIN EXAM: turgor normal Data : 03/19/21 05:35 03/19/21 05:35 Micro: Microbiology 03/18/21 15:30 C.difficile Toxin B Gene (PCR) - Final Stool Routine Collection 03/13/21 17:50 Blood Culture - Final Blood NO GROWTH AFTER 5 DAYS 03/13/21 17:41 Blood Culture - Final Blood NO GROWTH AFTER 5 DAYS A&P Assessment and plan (1) UTI due to extended-spectrum beta lactamase (ESBL) producing Escherichia coli: Status: Acute (2) Moderate protein-calorie malnutrition: Status: Acute (3) Deep tissue injury: Status: Acute (4) Type 2 diabetes mellitus: Status: Acute Qualifiers: Diabetes mellitus intermodal customer service insulin use: without intermodal customer service use Diabetes mellitus complication status: with neurologic complications Diabetes mellitus complication detail: with unspecified neuropathy Qualified Code(s): E11.40 - Type 2 diabetes mellitus with diabetic neuropathy, unspecified (5) Sepsis: Status: Acute (6) Major depressive disorder: Status: Acute (7) High anion gap metabolic acidosis: Status: Acute (8) Lactic acidosis: Status: Acute (9) Physical deconditioning: Status: Acute (10) Ileocolic intussusception: Status: Resolved (11) Hypotension: Status: Acute Plan Sepsis: Present on admission. Secondary to ESBL E. coli UTI. Resolved. Keep mean artery pressure over 65. Continue with Zosyn to finish a 7-day course. Last dose on 03/20. Having multiple episodes of diarrhea. C. difficile ruled out. Hypotension: Currently on midodrine 10 mg oral 3 times a day. Mean arterial pressure being well maintained. Random cortisol level appropriate but slightly on the low side. Check cosyntropin stimulation tests. For now hold off on steroids. Ileocolonic intussusception: Resolved. Tolerating diet appropriately. Appreciate surgical recommendations. Deep tissue injury: Sacral, lower extremity DTRs with black eschar. Wound care as per surgical recommendations. Frequent turning. Appropriate mattress. Lactic acidosis: History of severe lactic acidosis in the past. Possibly starvation ketosis versus related to Metformin. We'll discontinue Metformin on discharge. Increased anion gap metabolic acidosis: Most likely secondary to lactic acidosis and dehydration. Resolved. Macrocytic anemia -Continue to monitor History of alcoholism: Continue with oral thiamine. Folate levels appreciated. History of thyroid disorder: TSH elevated. Check free T3 and free T4. Depending on the results will start on levothyroxine Type 2 diabetes mellitus, depending on ketones as above, low-dose sliding scale Moderate protein calorie malnutrition, add Ensure with meals Major depressive disorder, continue home medications Elevated troponins,, likely secondary sepsis as above, serial troponins, serial EKGs Elevated T bili, AST, alk phos, shows fatty liver disease, no intra or extrahepatic biliary duct dilatation Full code. Carb consistent diet. Protonix for PUD prophylaxis. Heparin for DVT prophylaxis. Discharge planning: SNF versus home with home health. Patient recently was at [facility] from where she was discharged by the . Patient has currently been declined by multiple SNF. Few referrals pending. Unfortunately if not able to find SNF placement will have to discharge back home with or without home health. Discussed in detail with and patient. They verbalized understanding. Appreciative of multiple trying. Attestations Medical Necessity Statement*: Requires further hospitalization for management of sepsis secondary to ESBL UTI, hypotension while adrenal insufficiency is ruled out and safe discharge planning is sought Time Spent in Patient Care: Greater than 35 minutes Coding Level of Care Code Acute Cylinder Press Operator Apprentice for Chg Fwd Diagnoses UTI due to extended-spectrum beta lactamase (ESBL) producing Escherichia coli N39.0; B96.29; Z16.12 Moderate protein-calorie malnutrition E44.0 Deep tissue injury T14.8XXA Type 2 diabetes mellitus E11.40 Diabetes mellitus intermodal customer service insulin use: without intermodal customer service use Diabetes mellitus complication status: with neurologic complications Diabetes mellitus complication detail: with unspecified neuropathy Sepsis A41.9 Major depressive disorder F32.9 High anion gap metabolic acidosis E87.2 Lactic acidosis E87.2 Physical deconditioning R53.81 Ileocolic intussusception K56.1 Hypotension I95.9
[2021-03-19] MEDS: insulin lispro 100 unit/1 mL SUBCUT ×3 (14:34→21:52)
[2021-03-19 14:45] LABS: Cosyntropin 30 Minute 18.42 mcg/dL
--- NOTE | 2021-03-19 14:48 | PC.SOCIAL ---
IMM Update pg 2 of IMM updated and reviewed w/ patient. Copy provided and copy in chart updated.
--- NOTE | 2021-03-19 15:06 | PC.NURSE ---
Rcvd order from Dr Fernando to put consult in for Dr Vogt. appeals writer put order in
[2021-03-19 15:15] VITALS: BP 127/80; PULSE 98; RESP 17; TEMP 37.1; O2SAT 96
--- NOTE | 2021-03-19 15:18 | P.PN_ITS ---
Subjective Subjective: Interval history: Overall patient is feeling little better Medications: Reviewed: Yes Vitals/I&O/Wt Last Vital Signs Temp 98.8 F 03/19/21 15:15 Pulse 98 03/19/21 15:15 Resp 17 03/19/21 15:15 BP 127/80 03/19/21 15:15 Pulse Ox 96 03/19/21 15:15 03/19/21 03/19/21 03/19/21 06:59 14:59 22:59 Intake Total 50 / 220 430 / 430 Balance 50 / 220 430 / 430 Weight last 48 hrs Weight 147 lb 4.8 oz Physical Exam Narrative: EXAM NARRATIVE: Patient is conscious alert oriented X3 No apparent distress BMI 25.2 Head and neck examination PERRLA no masses no cervical lymphadenopathy no jaundice Abdomen nontender nondistended soft no organomegaly guarding or rigidity/no signs of peritonitis Multiple pressure tissue injury ulcers stable. Unstageable with black adherent eschar. Data : 03/19/21 05:35 03/19/21 05:35 Micro: Microbiology 03/18/21 15:30 C.difficile Toxin B Gene (PCR) - Final Stool Routine Collection 03/13/21 17:50 Blood Culture - Final Blood NO GROWTH AFTER 5 DAYS 03/13/21 17:41 Blood Culture - Final Blood NO GROWTH AFTER 5 DAYS A&P Assessment and plan (1) Pressure injury, unstageable, with eschar: Plan from surgical standpoint of view: 1-nutrition optimization 2-wound care in the form of Betadine paint twice a day, no indication for surgical intervention at this point 3-management of medical comorbidities 4-physical therapy consultation when needed 5-frequent turning in bed every 2 hour 6-appropriate mattress 7-educating patient and family about pressure injury ulcers and set expectations 8-follow-up at the wound care center as needed Asurance and education All questions have been answered and all concerns have been addressed to patient's satisfaction. Status: Acute Attestations Medical Necessity Statement*: Per admitting service Coding Level of Care Code Acute Family And Consumer Sciences Professor for Paola De Los Santos Diagnoses Pressure injury, unstageable, with eschar L89.95
[2021-03-19 17:16] LABS: Glucose Point of Care 169 mg/dL (70-110)
[2021-03-19] MEDS: lactobacillus 1 Tablet 1 TAB PO (17:48)
[2021-03-19 20:00] VITALS: BP 97/62; PULSE 111; RESP 17; TEMP 37.1; O2SAT 95
[2021-03-19] MEDS: metoprolol tartrate 25 mg Tablet PO (20:38)
[2021-03-19 21:41] LABS: Glucose Point of Care 166 mg/dL (70-110)
[2021-03-20] VITALS: BP 112/68; PULSE 62; RESP 16; TEMP 36.5; O2SAT 93
[2021-03-20 04:00] VITALS: BP 107/71; PULSE 80; RESP 17; TEMP 36.9; O2SAT 94
[2021-03-20] MEDS: pantoprazole DR 40 mg Tablet PO ×2 (04:57→18:05)
[2021-03-20] MEDS: acetaminophen 325 mg Tablet 650 MG PO (06:00)
[2021-03-20 06:32] LABS: Basophils % 0.1 %; Hematocrit 29.8 % (37.0-47.0); Hemoglobin 9.3 g/dL (11.5-15.3); Lymphocytes # 2.6 10^3/uL (0.8-4.8); Lymphocytes % 31.8 %; Mean Corpuscular HGB Conc 31.2 g/dL (30.0-36.0); Mean Corpuscular Hemoglobin 33.1 pg (28.0-34.0); Mean Platelet Volume 9.6 fL (7.4-10.4); Monocytes # 0.7 10^3/uL (0.2-0.9); Neutrophils # 4.82 10^3/uL (1.8-7.7); Neutrophils % 59.5 %; Nucleated Red Blood Cells % 0 %; Platelet Count 195 10^3/cmm (130-400); Red Blood Count 2.81 10^6/uL (4.1-5.3); Red Cell Distribution Width 17.5 % (12.1-15.1); White Blood Count 8.1 10^3/uL (4.0-10.0)
[2021-03-20 06:45] LABS: Glucose Point of Care 68 mg/dL (70-110)
[2021-03-20 06:55] LABS: Cortisol Random 11.82 ug/dL (2.47-19.5)
[2021-03-20 07:14] LABS: Alanine Aminotransferase 18 U/L (0-33); Albumin Level 1.5 g/dL (3.5-5.2); Alkaline Phosphatase 148 IU/L (35-105); Anion Gap 21.2 (5-19); Aspartate Amino Transferase 22 U/L (0-32); Blood Urea Nitrogen 5 mg/dL (8-23); Calcium 7.6 mg/dL (8.5-10.5); Carbon Dioxide 21 mmol/L (22-29); Chloride 101 mmol/L (98-107); Globulin 2.7 g/dL (1.3-4.6); Glomerular Filtration Rate 123.8 mL/min (90-130); Glucose 63 mg/dL (65-115); Magnesium 1.5 mg/dL (1.7-2.3); Osmolality Calculated 285 mOsm/kg (285-295); Phosphorus 2.3 mg/dL (2.5-4.5); Potassium 3.2 mmol/L (3.5-5.1); Sodium 140 mmol/L (136-145); Total Bilirubin 0.6 mg/dL (0.15-1.2); Total Protein 4.2 g/dL (6.6-8.7)
[2021-03-20 07:21] VITALS: BP 91/62; PULSE 93; RESP 18; TEMP 36.6; O2SAT 96
[2021-03-20] MEDS: piperacillin-tazobactam 3.375 GM in sodium chloride 0.9% (plus) 50 ML IV ×2 (07:49→14:44)
[2021-03-20] MEDS: gabapentin 300 mg Capsule PO ×2 (07:49→14:43)
[2021-03-20] MEDS: thiamine 100 mg Tablet PO (07:49)
[2021-03-20] MEDS: lactobacillus 1 Tablet 1 TAB PO ×2 (07:49→18:05)
[2021-03-20] MEDS: midodrine 5 mg TABLET 10 MG PO ×2 (07:49→14:43)
[2021-03-20] MEDS: quetiapine 25 mg Tablet 12.5 MG PO ×2 (07:50→18:05)
[2021-03-20] MEDS: metoprolol tartrate 25 mg Tablet PO (07:50)
[2021-03-20] MEDS: atorvastatin 40 mg Tablet 10 MG PO (07:50)
[2021-03-20] MEDS: ferrous sulfate EC 325 mg Tablet PO ×2 (07:50→18:05)
[2021-03-20] MEDS: venlafaxine ER (24HR) 75 mg Capsule PO (07:50)
[2021-03-20] MEDS: FUROsemide 40 mg Tablet 20 MG PO (07:51)
[2021-03-20 10:54] VITALS: BP 99/63; PULSE 79; RESP 16; TEMP 36.7; O2SAT 95
[2021-03-20 12:44] LABS: Glucose Point of Care 222 mg/dL (70-110)
--- NOTE | 2021-03-20 14:36 | P.PN_ITS ---
Subjective Subjective: No acute events overnight. Has remained hemodynamically stable and afebrile. Denies any nausea, vomiting, headache. Laying comfortably in bed on examination. No new complaints. Vitals/I&O/Wt Last Vital Signs Temp 98.0 F 03/20/21 10:54 Pulse 79 03/20/21 10:54 Resp 16 03/20/21 10:54 BP 99/63 03/20/21 10:54 Pulse Ox 95 03/20/21 10:54 03/19/21 03/20/21 03/20/21 22:59 06:59 14:59 Intake Total 410 / 840 50 / 890 240 / 240 Balance 410 / 840 50 / 890 240 / 240 Physical Exam Const: COMMON NORMALS: no acute distress and patient oriented x3 EXAM LIMITATIONS: other limitations (Occasional forgetfulness) GENERAL APPEARANCE: well kempt HENMT: COMMON NORMALS: normocephalic, Normal external nose present and oropharynx normal HEAD & SCALP: normocephalic FACE & SINUS: normal facial exam NOSE: Normal external nose present MOUTH: Normal oral and palatal mucosa present Eye: COMMON NORMALS: Equal, round and reactive pupils present, conjunctivae normal and no scleral icterus CONJUNCTIVA: Yes conjunctivae normal PUPIL: Yes Equal, round and reactive pupils present Neck/C-Spine: COMMON NORMALS: full ROM, no lymphadenopathy, no meningeal signs, no JVD and Thyroid normal THYROID: Thyroid normal Lymph: LYMPHATIC: no lymphadenopathy noted Chest: COMMONS NORMALS: normal inspection of the chest Resp: COMMON NORMALS: normal respiratory effort, No retractions, No use of accessory muscles and clear to auscultation bilaterally AUSCULTATION: clear to auscultation bilaterally Cardio: COMMON NORMALS: no JVD, regular rate, regular rhythm, S1 normal heart sound present, S2 normal heart sound present, No murmurs present (Cardio) and Peripheral pulses 2+ throughout RATE: regular rate RHYTHM: regular rhythm HEART SOUNDS: S1 normal heart sound present and S2 normal heart sound present PERIPHERAL PULSES: Peripheral pulses 2+ throughout GI: COMMON NORMALS: Normal to inspection, nondistended, normoactive bowel sounds present, Soft to palpation, non-tender, No hepatosplenomegaly present and no masses PALPATION: Yes Soft to palpation and Yes No hepatosplenomegaly present : COMMON NORMALS: Yes no CVA tenderness BLADDER/KIDNEY EXAM: Yes no CVA tenderness Back/Pelvis: COMMON NORMALS: no CVA tenderness Extremity: COMMON NORMALS: normal to inspection, full ROM, capillary refill normal, no calf tenderness and no pedal edema Neuro: COMMON NORMALS: patient oriented x3, CN's II-XII intact bilaterally, moves all extremities, no focal motor deficits and no sensory deficits noted MENINGEAL SIGNS: Yes no meningeal signs Psych: COMMON NORMALS: mental status grossly normal, Normal thought process present, cooperative and speech normal APPEARANCE: Yes well kempt SPEECH: Yes normal speech THOUGHT PROCESS: Normal thought process present Skin: COMMON NORMALS: turgor normal and no jaundice NARRATIVE SKIN EXAM: -Deep tissue inju ry, present over s acrum, largest devan suring 2 x 3 cm ir regular borders, w ith black eschar -Multiple DTI's ov er right and left thigh, largest devan suring 1 x 1 cm, i rregular borders, black eschar Multi ple DTI's present over right calf, l argest measuring 1 x 1 cm, irregular borders GENERAL SKIN EXAM: turgor normal Data : 03/20/21 05:32 03/20/21 05:32 A&P Assessment and plan (1) UTI due to extended-spectrum beta lactamase (ESBL) producing Escherichia coli: Status: Acute (2) Moderate protein-calorie malnutrition: Status: Acute (3) Deep tissue injury: Status: Acute (4) Type 2 diabetes mellitus: Status: Acute Qualifiers: Diabetes mellitus nursing home insulin use: without terminal superintendent use Diabetes mellitus complication status: with neurologic complications Diabetes mellitus complication detail: with unspecified neuropathy Qualified Code(s): E11.40 - Type 2 diabetes mellitus with diabetic neuropathy, unspecified (5) Sepsis: Status: Acute (6) Major depressive disorder: Status: Acute (7) High anion gap metabolic acidosis: Status: Acute (8) Lactic acidosis: Status: Acute (9) Physical deconditioning: Status: Acute (10) Ileocolic intussusception: Status: Resolved (11) Hypotension: Status: Acute Plan Sepsis: Present on admission. Secondary to ESBL E. coli UTI. Resolved. Keep mean artery pressure over 65. Continue with Zosyn to finish a 7-day course. Last dose on 03/20. Having multiple episodes of diarrhea. C. difficile ruled out. Hypotension: Currently on midodrine 10 mg oral 3 times a day. Mean arterial pressure being well maintained. Random cortisol level and cosyntropin stimulation test appreciated. Borderline normal. Ileocolonic intussusception: Resolved. Tolerating diet appropriately. Appreciate surgical recommendations. Deep tissue injury: Sacral, lower extremity DTRs with black eschar. Wound care as per surgical recommendations. Frequent turning. Appropriate mattress. Lactic acidosis: History of severe lactic acidosis in the past. Possibly starvation ketosis versus related to Metformin. We'll discontinue Metformin on discharge. Increased anion gap metabolic acidosis: Most likely secondary to lactic acidosis and dehydration. Resolved. Macrocytic anemia -Continue to monitor History of alcoholism: Continue with oral thiamine. Folate levels appreciated. History of thyroid disorder: TSH elevated. Check free T3 and free T4. Depending on the results will start on levothyroxine Type 2 diabetes mellitus, depending on ketones as above, low-dose sliding scale Moderate protein calorie malnutrition, add Ensure with meals Major depressive disorder, continue home medications Elevated troponins,, likely secondary sepsis as above, serial troponins, serial EKGs Elevated T bili, AST, alk phos, shows fatty liver disease, no intra or extrahepatic biliary duct dilatation Full code. Carb consistent diet. Protonix for PUD prophylaxis. Heparin for DVT prophylaxis. Plan for today: Last dose of Zosyn today., Frequent turning. Continue wound care. Carb consistent diet with protein supplements. Continue physical therapy. Discharge planning: Plan to discharge to SNF. 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 Awaited prior authorization. Attestations Medical Necessity Statement*: Requires further hospitalization for management of severe physical deconditioning, protein energy malnutrition, sepsis secondary to ESBL UTI, decubitus ulcers Time Spent in Patient Care: Greater than 35 minutes Coding Level of Care Code Acute Manager Underwriting for [facility] Fwd Diagnoses UTI due to extended-spectrum beta lactamase (ESBL) producing Escherichia coli N39.0; B96.29; Z16.12 Moderate protein-calorie malnutrition E44.0 Deep tissue injury T14.8XXA Type 2 diabetes mellitus E11.40 Diabetes mellitus nursing home insulin use: without nursing home use Diabetes mellitus complication status: with neurologic complications Diabetes mellitus complication detail: with unspecified neuropathy Sepsis A41.9 Major depressive disorder F32.9 High anion gap metabolic acidosis E87.2 Lactic acidosis E87.2 Physical deconditioning R53.81 Ileocolic intussusception K56.1 Hypotension I95.9
[2021-03-20] MEDS: insulin lispro 100 unit/1 mL SUBCUT ×2 (14:43→18:05)
[2021-03-20 15:53] VITALS: BP 118/72; PULSE 80; RESP 18; TEMP 36.7; O2SAT 97
[2021-03-20 17:53] LABS: Glucose Point of Care 338 mg/dL (70-110)
[2021-03-20 17:53] LABS: Glucose Point of Care 544 mg/dL (70-110)
[2021-03-20 17:53] LABS: Glucose Point of Care 313 mg/dL (70-110)
[2021-03-20 18:07] LABS: SARS Covid-2 Antigen Negative (Negative)
[2021-03-20 19:03] VITALS: BP 96/61; PULSE 79; RESP 18; TEMP 36.9; O2SAT 98
[2021-03-20 20:29] LABS: Glucose Point of Care 248 mg/dL (70-110)
[2021-03-21] VITALS: BP 102/67; PULSE 82; RESP 16; TEMP 37.1; O2SAT 96
[2021-03-21] MEDS: midodrine 5 mg TABLET 10 MG PO ×2 (00:13→08:46)
[2021-03-21] MEDS: metoprolol tartrate 25 mg Tablet 12.5 MG PO ×2 (00:15→08:47)
[2021-03-21] MEDS: gabapentin 300 mg Capsule PO ×2 (00:16→08:46)
[2021-03-21] MEDS: insulin lispro 100 unit/1 mL SUBCUT (00:20)
[2021-03-21 04:00] VITALS: BP 142/82; PULSE 76; RESP 15; TEMP 36.9; O2SAT 93
[2021-03-21] MEDS: pantoprazole DR 40 mg Tablet PO (05:13)
[2021-03-21 07:30] LABS: Glucose Point of Care 88 mg/dL (70-110)
[2021-03-21 08:00] VITALS: BP 107/70; PULSE 89; RESP 16; TEMP 36.3; O2SAT 98
[2021-03-21] MEDS: ferrous sulfate EC 325 mg Tablet PO (08:45)
[2021-03-21] MEDS: venlafaxine ER (24HR) 75 mg Capsule PO (08:45)
[2021-03-21] MEDS: lactobacillus 1 Tablet 1 TAB PO (08:46)
[2021-03-21] MEDS: thiamine 100 mg Tablet PO (08:46)
[2021-03-21] MEDS: quetiapine 25 mg Tablet 12.5 MG PO (08:47)
[2021-03-21] MEDS: atorvastatin 40 mg Tablet 10 MG PO (08:48)
--- NOTE | 2021-03-21 09:17 | PM.DCS ---
Discharge Providers Date of Admission: 03/14/21 00:05 Date of Discharge: March 21, 2021 Attending Provider at Admission: Haja Garza MD Attending Provider at Discharge: Isac Fernando MD Primary Care Provider: Geeta Anders-Breanne Diagnoses at Discharge Discharge Diagnosis (1) UTI due to extended-spectrum beta lactamase (ESBL) producing Escherichia coli: Status: Acute (2) Moderate protein-calorie malnutrition: Status: Acute (3) Deep tissue injury: Status: Acute (4) Type 2 diabetes mellitus: Status: Acute Qualifiers: Diabetes mellitus custodial insulin use: without custodial use Diabetes mellitus complication status: with neurologic complications Diabetes mellitus complication detail: with unspecified neuropathy Qualified Code(s): E11.40 - Type 2 diabetes mellitus with diabetic neuropathy, unspecified (5) Sepsis: Status: Acute (6) Major depressive disorder: Status: Acute (7) High anion gap metabolic acidosis: Status: Acute (8) Lactic acidosis: Status: Acute (9) Physical deconditioning: Status: Acute (10) Ileocolic intussusception: Status: Resolved (11) Hypotension: Status: Acute Reason for Visit Reason for Visit: HYPOTENSION Hospital Course Hospital Course History as per HPI: Almita Mckinley is a 65 year old female with a past medical history of udl-zequail-ffsyugoqi diabetes mellitus, recent history of left hip fracture, history of COVID-19 infection, history of refeeding syndrome, history of UTI, history of alcohol abuse in the past, history of lactic acidosis, anxiety depression, who [place] [facility] due to low blood pressure, tachycardia, fatigue, malaise.? Patient tells me that since her hospital discharge to the intermediate, she has not been doing well at the intermediate, she developed a lot of pressure ulcers from laying around.? She was at wound care today, when they checked her vitals her blood pressures were low, heart rate was fast she was not feeling well, so they are worried about sepsis so they sent her over to emergency room.? Currently alert oriented x3, following all commands, she is laying on her right side, complaining of pain over her DTI's, denies any flank pain, no dysuria, no hematuria, no headache, blurry vision, no chest pain, no shortness of breath, no cough. Hospital course: Patient was in the hospital for evaluation and management of sepsis. Admission she was found to have high anion gap acidosis with lactic acidosis Patient also found to have ileocolonic intussusception. Surgery was consulted. She was treated conservatively for intussusception. She started on broad-spectrum antibiotics. Urine culture eventually grew ESBL E. coli. Blood cultures remain negative. She finished a course of IV antibiotics with Zosyn for UTI. She was found to have hypotension. Hypotension continued even after sepsis had resolved. Adrenal insufficiency was ruled out. She was started on midodrine after which her blood pressure was stabilized. Multiple sedative medications were adjusted. On repeat abdominal imaging intussusception has resolved. She was started on diet which he tolerated well. Patient was also found to have multiple deep tissue injury on her sacral region which has had wound dressing as per surgical recommendations. Patient lactic acidosis and high anion gap metabolic acidosis has resolved. Safe discharge planning were discussed in detail with patient and patient /caregiver. They were agreeable for SNF placement. Multiple medication changes have been done. Her sedating medications have been decreased. Dose of venlafaxine has been changed to 75 mg. Klonopin has been stopped. Dose of gabapentin has been changed. Metformin has been stopped because of persistent lactic acidosis. It has been changed to Januvia. Patient is being discharged in hemodynamically stable condition. Physical Exam Const: COMMON NORMALS: no acute distress and patient oriented x3 EXAM LIMITATIONS: other limitations (Occasional forgetfulness) GENERAL APPEARANCE: well kempt HENMT: COMMON NORMALS: normocephalic, Normal external nose present and oropharynx normal HEAD & SCALP: normocephalic FACE & SINUS: normal facial exam NOSE: Normal external nose present MOUTH: Normal oral and palatal mucosa present Eye: COMMON NORMALS: Equal, round and reactive pupils present, conjunctivae normal and no scleral icterus CONJUNCTIVA: Yes conjunctivae normal PUPIL: Yes Equal, round and reactive pupils present Neck/C-Spine: COMMON NORMALS: full ROM, no lymphadenopathy, no meningeal signs, no JVD and Thyroid normal THYROID: Thyroid normal Lymph: LYMPHATIC: no lymphadenopathy noted Chest: COMMONS NORMALS: normal inspection of the chest Resp: COMMON NORMALS: normal respiratory effort, No retractions, No use of accessory muscles and clear to auscultation bilaterally AUSCULTATION: clear to auscultation bilaterally Cardio: COMMON NORMALS: no JVD, regular rate, regular rhythm, S1 normal heart sound present, S2 normal heart sound present, No murmurs present (Cardio) and Peripheral pulses 2+ throughout RATE: regular rate RHYTHM: regular rhythm HEART SOUNDS: S1 normal heart sound present and S2 normal heart sound present PERIPHERAL PULSES: Peripheral pulses 2+ throughout GI: COMMON NORMALS: Normal to inspection, nondistended, normoactive bowel sounds present, Soft to palpation, non-tender, No hepatosplenomegaly present and no masses PALPATION: Yes Soft to palpation and Yes No hepatosplenomegaly present : COMMON NORMALS: Yes no CVA tenderness BLADDER/KIDNEY EXAM: Yes no CVA tenderness Back/Pelvis: COMMON NORMALS: no CVA tenderness Extremity: COMMON NORMALS: normal to inspection, full ROM, capillary refill normal, no calf tenderness and no pedal edema Neuro: COMMON NORMALS: patient oriented x3, CN's II-XII intact bilaterally, moves all extremities, no focal motor deficits and no sensory deficits noted MENINGEAL SIGNS: Yes no meningeal signs Psych: COMMON NORMALS: mental status grossly normal, Normal thought process present, cooperative and speech normal APPEARANCE: Yes well kempt SPEECH: Yes normal speech THOUGHT PROCESS: Normal thought process present Skin: COMMON NORMALS: turgor normal and no jaundice NARRATIVE SKIN EXAM: -Deep tissue inju ry, present over s acrum, largest devan suring 2 x 3 cm ir regular borders, w ith black eschar -Multiple DTI's ov er right and left thigh, largest devan suring 1 x 1 cm, i rregular borders, black eschar Multi ple DTI's present over right calf, l argest measuring 1 x 1 cm, irregular borders GENERAL SKIN EXAM: turgor normal Discharge Data Studies Completed and Pending Completed Studies During Hospitalization Category Date Time Status CT abdomen pelvis wo con [id number] Routine Cat Scan 03/14/21 04:[address] abdomen pelvis wo con [id number] Urgent Cat Scan 03/13/21 17:43 Completed XR chest 1V portable [id number] Stat Exams 03/13/21 15:30 Completed US gall bladder [id number] Urgent Ultrasound 03/14/21 18:01 Completed Radiology Impressions Chest X-Ray 03/13/21 15:30 IMPRESSION: Stable chest with no acute abnormality. Abdomen/Pelvis CT 03/14/21 04:00 IMPRESSION: The previously noted ileocolic intussusception has resolved. No bowel obstruction. COMMENTS: Consistent with the [employer]'s Incidental Findings Committee white paper (J Am Hortensia Radiol 2018): Any incidental renal lesion less than 1 cm or classified as too small to characterize, or any incidental cystic renal lesion characterized as simple-appearing, is likely benign. No follow-up imaging is recommended for these lesions per consensus recommendations based on imaging criteria. Gallbladder Ultrasound 03/14/21 18:01 IMPRESSION: Technically difficult study due to bowel gas and patient mobility. 1. Mild hepatomegaly with diffuse fatty infiltration. 2. Prior cholecystectomy. 3. No hydronephrosis in right kidney. 4. Normal common bile duct measuring 5.5 mm. Laboratory Results WBC 8.1 10^3/uL (4.0-10.0) 03/20/21 05:32 Corrected WBC Cancelled 03/14/21 08:06 RBC 2.81 10^6/uL (4.1-5.3) L 03/20/21 05:32 Hgb 9.3 g/dL (11.5-15.3) L 03/20/21 05:32 Hct 29.8 % (37.0-47.0) L 03/20/21 05:32 MCV 106.0 fl (81-99) H 03/20/21 05:32 MCH 33.1 pg (28.0-34.0) 03/20/21 05:32 MCHC 31.2 g/dL (30.0-36.0) 03/20/21 05:32 RDW 17.5 % (12.1-15.1) H 03/20/21 05:32 Plt Count 195 10^3/cmm (130-400) 03/20/21 05:32 MPV 9.6 fL (7.4-10.4) 03/20/21 05:32 Gran % Cancelled 03/14/21 08:06 Neut % (Auto) 59.5 % 03/20/21 05:32 Lymph % (Auto) 31.8 % 03/20/21 05:32 [place] % (Auto) 8.0 % 03/20/21 05:32 Eos % (Auto) 0.0 % 03/20/21 05:32 Baso % (Auto) 0.1 % 03/20/21 05:32 Neut # (Auto) 4.82 10^3/uL (1.8-7.7) 03/20/21 05:32 Lymph # (Auto) 2.6 10^3/uL (0.8-4.8) 03/20/21 05:32 [place] # (Auto) 0.7 10^3/uL (0.2-0.9) 03/20/21 05:32 Eos # (Auto) 0.0 10^3/uL (0.0-0.8) 03/20/21 05:32 Baso # (Auto) 0.0 10^3/uL (0.0-0.1) 03/20/21 05:32 Absolute Gran (auto) Cancelled 03/14/21 08:06 Nucleated RBC % (auto) 0 % 03/20/21 05:32 Nucleated RBCs # 0.0 /100WBC 03/20/21 05:32 Specimen Type Arterial 03/13/21 17:56 Sample Site Brachial, right 03/13/21 17:56 ABG pH 7.42 (7.35-7.45) 03/13/21 17:56 ABG pCO2 24.4 mmHg (35-45) L 03/13/21 17:56 ABG pO2 86.3 mmHg (80.0-100.0) 03/13/21 17:56 ABG HCO3 15.8 mmol/L (22-26) L 03/13/21 17:56 ABG O2 Saturation 97.6 03/13/21 17:56 ABG Base Excess -7.3 mmol/L (-2.0-2.0) L 03/13/21 17:56 Jeferson Test N/a 03/13/21 17:56 A-a O2 Gradient 4.0 mmHg (5-10) L 03/13/21 17:56 Hematocrit 31.3 % (37-47) L 03/13/21 17:56 Hgb O2 Saturation 96.3 % (95-100) 03/13/21 17:56 Carboxyhemoglobin 0.7 %THgb (0.4-20.1) 03/13/21 17:56 Methemoglobin 0.6 % (0.4-1.5) 03/13/21 17:56 Total Hemoglobin 10.2 g/dL (12-16) L 03/13/21 17:56 Sodium 132.0 mmol/L (131-143) 03/13/21 17:56 Potassium 4.6 mmol/L (3.5-5.0) 03/13/21 17:56 Glucose 310.0 mg/dL (70-115) H 03/13/21 17:56 Ionized Calcium 1.1 mmol/L (1.1-1.4) 03/13/21 17:56 O2 Delivery Device Room air 03/13/21 17:56 FiO2 21.0 % 03/13/21 17:56 Outside Physical Damage Appraiser ID Amh 03/13/21 17:56 Sodium 140 mmol/L (136-145) 03/20/21 05:32 Potassium 3.2 mmol/L (3.5-5.1) L 03/20/21 05:32 Chloride 101 mmol/L (98-107) 03/20/21 05:32 Carbon Dioxide 21 mmol/L (22-29) L 03/20/21 05:32 Anion Gap 21.2 (5-19) H 03/20/21 05:32 BUN 5 mg/dL (8-23) L 03/20/21 05:32 Creatinine 0.5 mg/dL (0.5-0.9) 03/20/21 05:32 GFR Calculation 123.8 mL/min (90-130) 03/20/21 05:32 Glucose 63 mg/dL (65-115) L 03/20/21 05:32 POC Glucose 88 mg/dL (70-110) 03/21/21 06:17 Estimat Average Glucose 180 03/13/21 15:43 Hemoglobin A1c 7.9 % (4.0-6.0) H 03/13/21 15:43 Calculated Osmolality 285 mOsm/kg (285-295) 03/20/21 05:32 Lactic Acid 1.3 mmol/L (0.5-2.2) 03/16/21 06:55 Lactic Acid (Sepsis) 2.4 mmol/L (0.5-2.2) H 03/15/21 09:20 Calcium 7.6 mg/dL (8.5-10.5) L 03/20/21 05:32 Phosphorus 2.3 mg/dL (2.5-4.5) L 03/20/21 05:32 Magnesium 1.5 mg/dL (1.7-2.3) L 03/20/21 05:32 Total Bilirubin 0.6 mg/dL (0.15-1.2) 03/20/21 05:32 GGT 343 U/L (5-36) H 03/13/21 15:43 AST 22 U/L (0-32) 03/20/21 05:32 ALT 18 U/L (0-33) 03/20/21 05:32 Alkaline Phosphatase 148 IU/L (35-105) H 03/20/21 05:32 Creatine Kinase 80 U/L (26-192) 03/13/21 15:43 Troponin T Baseline 29 ng/L (0-10) H 03/13/21 15:43 Troponin T 120 Minute 24.37 ng/L (0-10) H 03/13/21 17:41 Delta Troponin T -4.63 ABS# (0-10) L 03/13/21 17:41 Troponin T Hi Sens 6Hr 21.62 ng/L (0-10) H 03/13/21 21:33 Troponin T Hi Sens 6Hr Delta -7.38 ng/L (0-12) L 03/13/21 21:33 C-Reactive Protein 17.1 mg/L (0.0-4.9) H 03/13/21 15:43 NT-Pro-B Natriuret Pep 687 pg/mL (0-125) H 03/14/21 06:40 Total Protein 4.2 g/dL (6.6-8.7) L 03/20/21 05:32 Albumin 1.5 g/dL (3.5-5.2) L 03/20/21 05:32 Globulin 2.7 g/dL (1.3-4.6) 03/20/21 05:32 Lipase 9 U/L (13-60) L 03/13/21 15:43 Vitamin B12 > 2000 pg/mL (232-1245) H 03/13/21 15:43 Folate > 20.0 ng/mL (4.8-37.3) 03/13/21 19:25 Procalcitonin 96.11 ng/mL (0-0.5) H 03/14/21 06:40 TSH 4.71 uIU/mL (0.27-4.20) H 03/14/21 06:40 Free T4 0.83 ng/dL (0.82-1.77) 03/18/21 13:24 Free T3 1.1 PG/ML (2.0-4.4) L 03/18/21 13:24 Random Cortisol 11.82 ug/dL (2.47-19.5) 03/20/21 05:32 Cortisol Response 03/19/21 05:35 Urine Color Yellow (Yellow) 03/13/21 16:10 Urine Appearance Cloudy (CLEAR) 03/13/21 16:10 Urine pH 5 (5-7) 03/13/21 16:10 Ur Specific [place] 1.020 (1.005-1.030) 03/13/21 16:10 Urine Protein Trace (Negative) 03/13/21 16:10 Urine Glucose (UA) 2+ (Normal) H 03/13/21 16:10 Urine Ketones Negative (Negative) 03/13/21 16:10 Urine Blood 2+ (Negative) H 03/13/21 16:10 Urine Nitrate Negative (Negative) 03/13/21 16:10 Urine Bilirubin 1+ (Negative) H 03/13/21 16:10 Urine Urobilinogen 1 mg/dL (Negative) H 03/13/21 16:10 Ur Leukocyte Esterase 2+ (Negative) H 03/13/21 16:10 Urine RBC 5-10 /hpf (0-2) H 03/13/21 16:10 Urine WBC 55-80 /hpf (0-5) H 03/13/21 16:10 Ur Squamous Epith Cells 0-4 /hpf (0-5) H 03/13/21 16:10 Amorphous Sediment Not Reportable 03/13/21 16:10 Urine Bacteria 3+ /hpf (NONE) H 03/13/21 16:10 Urine Opiates Screen Negative ng/mL (Negative) 03/13/21 16:10 Ur Barbiturates Screen Negative ng/mL (Negative) 03/13/21 16:10 Ur Phencyclidine Scrn Negative ng/mL (Negative) 03/13/21 16:10 Ur Amphetamines Screen Negative ng/mL (Negative) 03/13/21 16:10 U Benzodiazepines Scrn Negative ng/mL (Negative) 03/13/21 16:10 Urine Cocaine Screen Negative ng/mL (Negative) 03/13/21 16:10 U Marijuana (THC) Screen Negative ng/mL (Negative) 03/13/21 16:10 Ethyl Alcohol < 10 mg/dL (0-10) 03/13/21 15:43 Serum Ketones Negative (Negative) 03/13/21 19:25 SARS-CoV-2 Ag (Rapid) Negative (Negative) 03/20/21 Unknown Vitals Last Vital Signs Temp 98.4 F 03/21/21 04:00 Pulse 76 03/21/21 04:00 Resp 15 03/21/21 04:00 BP 142/82 03/21/21 04:00 Pulse Ox 93 03/21/21 04:00 Discharge Plan Discharge Patient Disposition: Xfer SNF Condition: Stable Prescriptions: New midodrine 5 mg Tablet 10 mg PO TID 30 Days Qty: 180 0RF gabapentin 300 mg Capsule 300 mg PO TID 30 Days Qty: 90 0RF Lactobacillus acidoph-L.bulgar 1 million cell Tablet 1 tab PO BID 30 Days Qty: 60 0RF Januvia 100 mg tablet 100 mg PO DAILY Qty: 30 0RF Continued biotin 10,000 mcg capsule 10,000 mcg PO DAILY 0RF calcium citrate-vitamin D3 [Calcium Citrate + D] 315 mg-5 mcg (200 unit) tablet 1 tab PO DAILY 0RF coenzyme Q10 [Co Q-10] 10 mg capsule 10 mg PO TID 0RF fluticasone propionate [Allergy Relief (fluticasone)] 50 mcg/actuation spray,suspension 1 spray intranasal DAILY 0RF Rx Instructions: administer into each nostril Complete Multivitamin Tablet 1 tab PO DAILY 0RF pantoprazole 40 mg tablet,delayed release (DR/EC) 40 mg PO DAILY 0RF simvastatin 40 mg tablet 40 mg PO DAILY 0RF venlafaxine 75 mg capsule,extended release 24hr 75 mg PO DAILY 0RF quetiapine [Seroquel] 25 mg Tablet 12.5 mg PO BID 0RF meclizine 25 mg Tablet 25 mg PO TID PRN (Reason: Dizziness) 0RF albuterol sulfate 90 mcg/actuation Hfa Aerosol Inhaler 2 puff INHALATION QID PRN (Reason: Shortness Of Breath) 0RF ferrous sulfate 325 mg (65 mg iron) Tablet,Delayed Release (Dr/Ec) 325 mg PO EVERY OTHER DAY Qty: 90 0RF thiamine mononitrate (vit B1) [Vitamin B-1 (mononitrate)] 100 mg Tablet 100 mg PO DAILY Qty: 90 0RF clonazepam 1 mg tablet 0.5 mg PO BID PRN (Reason: Anxiety) Qty: 0 0RF Breo Ellipta 200-25 mcg/dose blister with device 1 ea INHALATION DAILY 0RF Changed furosemide 20 mg tablet 20 mg PO DAILY PRN (Reason: swelling) Qty: 0 0RF metoprolol tartrate 25 mg Tablet 12.5 mg PO BID@0900,2100 Qty: 180 0RF Discontinued metformin 500 mg tablet 1,000 mg PO BID 0RF venlafaxine 150 mg capsule,extended release 24hr 150 mg PO DAILY 0RF gabapentin 600 mg Tablet 600 mg PO TID 0RF Discharge Orders: Discharge Order (Routine); Ordered 03/21/21 Ordered By: Isac Fernando Referrals: [facility] [Outside] Geeta Anders FNP-C [Primary Care Provider] - 2 weeks Discharge Diet: Cardiac and Diabetic Discharge Activity: Resume usual activity and Increase activity as tolerated Patient Instructions: Opioid Safety Activity Restrictions/Additional Instructions: Continue doing wound dressings as directed. wound care in the form of Betadine paint twice a day. Follow-up with primary care provider within next 2 weeks. Repeat BMP. Multiple medication changes as followed. Dose of gabapentin has been changed. Metformin has been stopped. Dose of venlafaxine has been changed. Discharge Attestations Time Spent in Discharge Care*: greater than 30 min Specific Discharge Activities: educating patient, educating and/or supporting family/caregiver, discussing with pcp/other providers, discussing with director case/social workers/dc planners, documenting/other paperwork and evaluating patient/reviewing data Status at Discharge: Cognitive status at discharge: mildly impaired cognition, Behavioral status at discharge: cooperative, Functional status at discharge: uses cane/walker, Overall status at discharge: patient is back to baseline Quality Metrics Clinical Quality Measures [ No reported AMI, CVA or VTE this stay] Coding Level of Care Code Acute [facility] DC note History Comprehensive Exam Detailed Medical Decision Making High Complexity Diagnoses UTI due to extended-spectrum beta lactamase (ESBL) producing Escherichia coli N39.0; B96.29; Z16.12 Moderate protein-calorie malnutrition E44.0 Deep tissue injury T14.8XXA Type 2 diabetes mellitus E11.40 Diabetes mellitus intermodal customer service insulin use: without custodial use Diabetes mellitus complication status: with neurologic complications Diabetes mellitus complication detail: with unspecified neuropathy Sepsis A41.9 Major depressive disorder F32.9 High anion gap metabolic acidosis E87.2 Lactic acidosis E87.2 Physical deconditioning R53.81 Ileocolic intussusception K56.1 Hypotension I95.9
[2021-03-23 21:29] LABS: Glucose Point of Care 163 mg/dL (70-110)
== END 2021-03-21 11:40 | disposition skilled nursing facility (03) | DRG 872 ==
LOC: ER 15:40 → ER IP 22:27 → MEDSURG 03-14 14:51
PROVIDERS: Admitting Provider Family Medicine; Emergency Provider Family Medicine; PCP Nurse Practitioner Family; Visit Provider Student in an Organized Health Care Education/Training Program
DX: A41.9 Sepsis, unspecified organism (principal); K56.1 Intussusception; E44.0 Moderate protein-calorie malnutrition; Z86.16 Personal history of COVID-19; L89.156 Pressure-induced deep tissue damage of sacral region; I95.9 Hypotension, unspecified; F41.9 Anxiety disorder, unspecified; K21.9 Gastro-esophageal reflux disease without esophagitis; E78.5 Hyperlipidemia, unspecified; I10 Essential (primary) hypertension; F32.9 Major depressive disorder, single episode, unspecified; E11.42 Type 2 diabetes mellitus with diabetic polyneuropathy; Z85.44 Personal history of malignant neoplasm of other female genital organs; Z98.84 Bariatric surgery status; Z87.891 Personal history of nicotine dependence; Z87.440 Personal history of urinary (tract) infections; Z79.51 Long term (current) use of inhaled steroids; E86.0 Dehydration; B96.20 Unspecified Escherichia coli [E. coli] as the cause of diseases classified elsewhere; F10.21 Alcohol dependence, in remission; D53.9 Nutritional anemia, unspecified; Z68.26 Body mass index [BMI] 26.0-26.9, adult
CPT/HCPCS: 36415; 36416; 36600; 71045; 74176; 76705; 80051; 80053; 80306; 80307; 80500; 81001; 82009; 82330; 82533; 82550; 82607; 82746; 82805; 82962; 82977; 83036; 83605; 83690; 83735; 83880; 84100; 84145; 84439; 84443; 84481; 84484; 85025; 86140; 87040; 87077; 87086; 87186; 87426; 87493; 93005; 93970; 94664; 96365; 96366; 96367; 96372; 97110; 97162; 97167; 97530; 99285; C9113; J0834; J1815; J2543; J3370; J3411; J3475; J3490; J7030; J7050; Q9967

== ENCOUNTER 2021-03-22 19:21 | Outpatient (CLI) | payer MEDICARE, SELFPAY ==
[2021-03-22 20:55] LABS: Calcium 7.6 mg/dL (8.5-10.5)
== END 2021-03-22 19:22 | disposition home or self-care (01) ==
LOC: LAB 19:28
PROVIDERS: PCP Nurse Practitioner Family; Visit Provider Internal Medicine
DX: Z01.89 Encounter for other specified special examinations (principal)
CPT/HCPCS: 82310

== ENCOUNTER 2021-04-05 14:50 | Inpatient (IN) | payer MEDICARE, SELFPAY ==
[2021-04-05] VITALS (50 sets, daily range): BP systolic 79–113; BP diastolic 56–79; PULSE 65–83; RESP 8–20; TEMP 30.9–32.6; O2SAT 96–100; BMI 27.4; BMI 28.3
--- NOTE | 2021-04-05 | USCV_ITS ---
Transthoracic Echo Almita Mckinley Age: 65 Gender: F : 1955 Exam Date: 04/05/2021 19:37 Ordering Phys: Isac Fernando MD Technologist: OG Exam Location: [facility] [place] Indication: Anasarca and CHF BP: 100 / 63 HR: 138 Rhythm: Sinus Technical Quality: Suboptimal MEASUREMENTS (Male / Female) Normal Values 2D ECHO LV Diastolic Diameter PLAX 2.8 cm 4.2 - 5.9 / 3.9 - 5.3 cm LV Systolic Diameter PLAX 1.6 cm IVS Diastolic Thickness 0.7 cm 0.6 - 1.0 / 0.6 - 0.9 cm IVS Systolic Thickness 0.8 cm LVPW Diastolic Thickness 0.9 cm 0.6 - 1.0 / 0.6 - 0.9 cm LVPW Systolic Thickness 1.2 cm LVOT Diameter 1.8 cm LV Ejection Fraction 2D Teich 76.1 % LV Ejection Fraction MOD 2C 59.1 % LV Ejection Fraction 2C AL 57.6 % LA Diameter 1.9 cm LA Width 2.9 cm LA Height 3.5 cm RA Width 2.4 cm RA Height 3.2 cm Aorta at Sinotubular Diameter 1.6 cm M-MODE Aortic Annulus Diameter 2.7 cm LA Ao Ratio MM 1.0 DOPPLER AV Peak Velocity 66.0 cm/s LVOT Peak Velocity 70.0 cm/s AV Area Cont Eq vti 3.6 cm squared AV Area Cont Eq pk 2.9 cm squared MV Peak Velocity 80.0 cm/s MV Area PHT 5.0 cm squared Mitral E to A Ratio 1.2 MV E' Velocity 43.0 cm/s Mitral E to MV E' Ratio 7.6 Mitral E to LV E' Lateral Ratio 8.2 Mitral E to LV E' Septal Ratio 7.1 TR Peak Velocity 188.0 cm/s TR Peak Gradient 14.1 mmHg TR Mean Velocity 160.7 cm/s TR Mean Gradient 10.8 mmHg TR Velocity Time Integral 82.4 cm TV Peak E Velocity 59.0 cm/s Right Atrial Pressure 3.0 mmHg Pulmonary Artery Systolic Pressu 17.1 mmHg PV Peak Velocity 56.0 cm/s RV Acceleration Time 0.1 s RV Ejection Time 0.3 s RV AcT/ET 0.3 FINDINGS Left Ventricle Normal left ventricular size, systolic function and wall thickness, with no regional wall motion abnormalities. Grade II/IV diastolic dysfunction, moderately elevated filling pressures. Left ventricular ejection fraction is estimated at 60 %. Right Ventricle Normal right ventricular size and systolic function. Right Atrium Normal right atrial size. Left Atrium Normal left atrial size. Mitral Valve Structurally normal mitral valve. No mitral valve stenosis. No mitral valve regurgitation. Aortic Valve Structurally normal trileaflet aortic valve. No aortic valve stenosis. No aortic valve regurgitation. Tricuspid Valve Structurally normal tricuspid valve. Trace tricuspid valve regurgitation. Pulmonic Valve Pulmonic valve not well visualized. Pericardium No pericardial effusion. Aorta Normal size aortic root and proximal ascending aorta. CONCLUSIONS Normal LV systolic function with grade 2 diastolic dysfunction. Ejection fraction 60%. No other of their abnormalities noted. Dr. Flo Nguyen MD (Electronically Signed) Final Date: 06 April 2021 12:58 S
--- NOTE | 2021-04-05 15:03 | USR_ITS ---
PROCEDURE INFORMATION: Exam: US Duplex Right Lower Extremity Veins, Limited Exam date and time: 04/05/2021 3:03 PM Age: 65 years old Clinical indication: Pain; Arm, upper and arm, lower; Right; Additional info: Dvt TECHNIQUE: Imaging protocol: Real-time Duplex ultrasound of the Right Lower Extremity with 2-D womack scale, color Doppler flow and spectral waveform analysis with image documentation. Limited exam was focused on the right lower extremity veins. COMPARISON: CT abdomen pelvis wo con [id number] 03/14/2021 4:10 AM FINDINGS: Right deep veins: Unremarkable. The common femoral, femoral, proximal profunda femoral and popliteal veins are patent without thrombus. Normal Doppler waveforms. Normal compressibility and/or augmentation response. Right superficial veins: Superficial venous thrombosis seen in the right cephalic vein distally extending into the antecubital fossa. Soft tissues: Unremarkable. US/[place] [id number] IMPRESSION: 1. Negative for deep venous thrombosis 2. Superficial venous thrombosis seen in the right cephalic vein distally extending into the antecubital fossa.
--- NOTE | 2021-04-05 15:04 | XRR_ITS ---
PROCEDURE INFORMATION: Exam: XR Chest Exam date and time: 04/05/2021 3:04 PM Age: 65 years old Clinical indication: Other: Hypotenyion; Additional info: Sepsis TECHNIQUE: Imaging protocol: XR of the chest. Views: 1 view. COMPARISON: CR XR chest 1V portable [id number] 03/13/2021 3:39 PM FINDINGS: Lungs: Left mid lung field calcified granuloma. Pleural spaces: Small right pleural effusion and patchy largely right lower lobe atelectasis versus infiltrate. Heart/Mediastinum: Unremarkable. No cardiomegaly. Bones/joints: Unremarkable. XR/XR chest 1V portable [id number] IMPRESSION: Small right pleural effusion and patchy largely right lower lobe atelectasis versus infiltrate.
--- NOTE | 2021-04-05 15:06 | W.ED.SKABFB ---
HPI - Skin/Abscess/Foreign Bdy General: Chief complaint: Altered Mental Status Stated complaint: HYPOTENSION, HYPERGLYCEMIA Time Seen by Provider: 04/05/21 14:53 History of Present Illness: 65-year-old female presents from nursing facility due to concern for low blood pressure and hyperglycemia. She has a history of diabetes. Also has a history of extensive pressure ulcers which appear to be worsening. Complains of worsening swelling and pain of her right upper extremity. However denies any chest pain or shortness of breath. Denies any headache abdominal pain nausea vomiting diarrhea. Denies any focal weakness numbness or tingling. Review of Systems Narrative: - CONSTITUTIONAL: Denies weight loss, fever and chills. - HEENT: Denies changes in vision and hearing. - RESPIRATORY: Denies SOB and cough. - CV: Denies palpitations and CP. - GI: Denies abdominal pain, nausea, vomiting and diarrhea. - : Denies dysuria and urinary frequency. - MSK: As above - SKIN: As above - NEUROLOGICAL: Denies headache, weakness, numbness and syncope. - PSYCHIATRIC: Denies suicidal ideation [facility] PFSH: Medical History (Updated 03/22/21 @ 00:00 by ) Anxiety disorder Complete tear of right rotator cuff (~11/2020) DJD of right AC (acromioclavicular) joint Enlargement of sternoclavicular joint Fall at home GERD (gastroesophageal reflux disease) High anion gap metabolic acidosis History of alcohol dependence Hyperlipidemia Hypertension Hyperthyroidism Intertrochanteric fracture of left hip Ketoacidosis Lactic acidosis Macrocytic anemia Major depressive disorder Refeeding syndrome Sarcoidosis diagnosis per available outside records, with patient stating onset in , details unknown, never put on specific treatment per report Thyroid disorder Type 2 diabetes mellitus Vulvar carcinoma Surgical History (Updated 03/18/21 @ 16:01 by Isac Fernando MD) History of carpal tunnel release History of gastric bypass Postoperative state Family History Other Cancer Social History Smoking and tobacco status: former smoker Alcohol intake: former Number of children: 0 Physical Exam Narrative: EXAM NARRATIVE: - GENERAL: Alert and oriented x 3. No acute distress. Well-nourished. - EYES: EOMI. Anicteric. - HENT: Atraumatic, no C-spine tenderness. Moist mucous membranes. No scleral icterus. No cervical lymphadenopathy. - LUNGS: Clear to auscultation bilaterally. No accessory muscle use. Equal lung sounds bilaterally. No respiratory distress. - CARDIOVASCULAR: Regular rate and rhythm. No murmur. No JVD. - ABDOMEN: Soft, non-tender and non-distended. Negative CVA tenderness bilaterally, no rebound or guarding, negative Gan sign. No palpable masses. - EXTREMITIES: Edema and tenderness right upper extremity. Extremities neurovascularly intact. - SKIN: Extensive skin breakdown ulcers in various stages to extremities and buttocks region. - NEUROLOGIC: No meningismus or focal neurological deficits. CN II-XII grossly intact. - PSYCHIATRIC: Cooperative. Appropriate mood and affect. Course Vital Signs: Vital signs: Vital Signs Temperature 88.0 F L 04/05/21 15:22 Pulse Rate 65 04/05/21 15:58 Respiratory Rate 18 04/05/21 15:58 Blood Pressure 111/66 04/05/21 15:58 Pulse Oximetry 99 04/05/21 15:58 MDM - Skin/Abscess/Foreign Bdy Medicial Decision Making 65-year-old female presents due to low blood pressure hyperglycemia. She was found to have extensive pressure ulcers throughout her body. With swelling of the right upper extremity however ultrasound does not reveal any sign of DVT. Lab work also reveals hyper kalemia for which supplement the potassium was provided. There is also lactic acidosis. She denies any abdominal pain with CT of the abdomen pelvis was ordered. There is concern for sepsis. Blood pressure initially soft but improved with IV fluids. Patient also has chronically and in general insufficiency and Solu-Medrol provided. She has hyperglycemia but does not appear to be in DKA at this time. Insulin provided. Remainder of lab work and imaging reviewed. Discussed with hospitalist and they agreed patient would benefit from admission. Patient admitted in stable condition. Further evaluation management per hospitalist team. Lab Data : 04/05/21 15:30 04/05/21 15:30 Radiology Impressions Venous Duplex 04/05/21 15:03 IMPRESSION: 1. Negative for deep venous thrombosis 2. Superficial venous thrombosis seen in the right cephalic vein distally extending into the antecubital fossa. Chest X-Ray 04/05/21 15:04 IMPRESSION: Small right pleural effusion and patchy largely right lower lobe atelectasis versus infiltrate. Laboratory Results WBC 8.6 10^3/uL (4.0-10.0) 04/05/21 15:30 RBC 3.10 10^6/uL (4.1-5.3) L 04/05/21 15:30 Hgb 10.4 g/dL (11.5-15.3) L 04/05/21 15:30 Hct 32.3 % (37.0-47.0) L 04/05/21 15:30 MCV 104.2 fl (81-99) H 04/05/21 15:30 MCH 33.5 pg (28.0-34.0) 04/05/21 15: MCHC 32.2 g/dL (30.0-36.0) 04/05/21 15:30 RDW 17.2 % (12.1-15.1) H 04/05/21 15:30 Plt Count 75 10^3/cmm (130-400) L 04/05/21 15: MPV 11.6 fL (7.4-10.4) H 04/05/21 15:30 Neut % (Auto) 77.0 % 04/05/21 15:30 Lymph % (Auto) 17.9 % 04/05/21 15:30 Dillon % (Auto) 4.1 % 04/05/21 15:30 Eos % (Auto) 0.1 % 04/05/21 15:30 Baso % (Auto) 0.2 % 04/05/21:30 Neut # (Auto) 6.60 10^3/uL (1.8-7.7) 04/05/21 15:30 Lymph # (Auto) 1.5 10^3/uL (0.8-4.8) 04/05/21 15:30 Dillon # (Auto) 0.4 10^3/uL (0.2-0.9) 04/05/21:30 Eos # (Auto) 0.0 10^3/uL (0.0-0.8) 04/05/21 15:30 Baso # (Auto) 0.0 10^3/uL (0.0-0.1) 04/05/21 15:30 Nucleated RBC % (auto) 0 % 02/24/22 15:30 Nucleated RBCs # 0.0 /100WBC 04/05/21 15:30 PT 16.70 SECONDS (12.1-14.9) H 04/05/21 15:30 INR 1.31 (0.8-1.2) H 04/05/21 15:30 APTT 60.0 SECONDS (23.9-36.7) H 04/05/21 15:30 Sodium 136 mmol/L (136-145) 04/05/21 15:30 Potassium 2.3 mmol/L (3.5-5.1) L* 04/05/21 15:30 Chloride 102 mmol/L (98-107) 04/05/21 15:30 Carbon Dioxide 20 mmol/L (22-29) L 04/05/21 15:30 Anion Gap 16.3 (5-19) 04/05/21 15:30 BUN 6 mg/dL (8-23) L 04/05/21 15:30 Creatinine 0.4 mg/dL (0.5-0.9) L 04/05/21 15:30 GFR Calculation 160.2 mL/min (90-130) H 04/05/21 15:30 Glucose 414 mg/dL (65-115) H 04/05/21 15:30 POC Glucose 397 mg/dL (70-110) H 04/05/21 16:16 Calculated Osmolality 297 mOsm/kg (285-295) H 04/05/21 15:30 Lactate 6.1 mmol/L (0.5-2.2) H* 04/05/21 15:30 Calcium 7.4 mg/dL (8.5-10.5) L 04/05/21 15:30 Total Bilirubin 0.4 mg/dL (0.15-1.2) 04/05/21 15:30 AST 16 U/L (0-32) 04/05/21 15:30 ALT 21 U/L (0-33) 04/05/21 15:30 Alkaline Phosphatase 134 IU/L (35-105) H 04/05/21 15:30 Total Protein 4.4 g/dL (6.6-8.7) L 04/05/21 15:30 Albumin 1.9 g/dL (3.5-5.2) L 04/05/21 15:30 Globulin 2.5 g/dL (1.3-4.6) 04/05/21 15:30 SARS-CoV-2 Ag (Rapid) Negative (Negative) 04/05/21 16:00 Discharge Plan Discharge Condition: Stable Prescriptions: No Action biotin 10,000 mcg capsule 10,000 mcg PO DAILY 0RF calcium citrate-vitamin D3 [Calcium Citrate + D] 315 mg-5 mcg (200 unit) tablet 1 tab PO DAILY 0RF coenzyme Q10 [Co Q-10] 10 mg capsule 10 mg PO TID 0RF fluticasone propionate [Allergy Relief (fluticasone)] 50 mcg/actuation spray,suspension 1 spray intranasal DAILY 0RF Rx Instructions: administer into each nostril pantoprazole 40 mg tablet,delayed release (DR/EC) 40 mg PO DAILY 0RF simvastatin 40 mg tablet 40 mg PO DAILY 0RF multivitamin Tablet 1 tab PO DAILY 0RF venlafaxine 75 mg capsule,extended release 24hr 75 mg PO DAILY 0RF quetiapine [Seroquel] 25 mg Tablet 12.5 mg PO BID 0RF meclizine 25 mg Tablet 25 mg PO TID PRN (Reason: Dizziness) 0RF albuterol sulfate 90 mcg/actuation Hfa Aerosol Inhaler 2 puff INHALATION QID PRN (Reason: Shortness Of Breath) 0RF ferrous sulfate 325 mg (65 mg iron) Tablet,Delayed Release (Dr/Ec) 325 mg PO EVERY OTHER DAY Qty: 90 0RF thiamine mononitrate (vit B1) [Vitamin B-1 (mononitrate)] 100 mg Tablet 100 mg PO DAILY Qty: 90 0RF clonazepam 1 mg tablet 0.5 mg PO BID PRN (Reason: Anxiety) Qty: 0 0RF Breo Ellipta 200-25 mcg/dose blister with device 1 ea INHALATION DAILY 0RF midodrine 5 mg Tablet 10 mg PO TID 30 Days Qty: 180 0RF gabapentin 300 mg Capsule 300 mg PO TID 30 Days Qty: 90 0RF Lactobacillus acidoph-L.bulgar 1 million cell Tablet 1 tab PO BID 30 Days Qty: 60 0RF furosemide 20 mg tablet 20 mg PO DAILY PRN (Reason: swelling) Qty: 0 0RF metoprolol tartrate 25 mg Tablet 12.5 mg PO BID@0900,2100 Qty: 180 0RF Januvia 100 mg tablet 100 mg PO DAILY Qty: 30 0RF doxycycline hyclate 100 mg capsule 100 mg PO BID 0RF (DME) FreeStyle Swathi 14 Day [place] Misc MISCELLANEOUS 0RF Referrals: Geeta Anders, TELEMARKETER SUPERVISOR-C [Primary Care Provider] - Coding Level of Care Code ED Configuration Management Specialist for [facility]
[2021-04-05] MEDS: cefepime 2,000 MG in sodium chloride 0.9% (plus) 50 ML 100 MG IV (15:45)
[2021-04-05] MEDS: vancomycin 1,000 MG in sodium chloride 0.9% 250 ML 250 MG IV (15:46)
[2021-04-05] MEDS: sodium chloride 0.9% 1,000 ML 999 ML IV ×3 (15:46→18:35)
[2021-04-05 15:54] LABS: Basophils % 0.2 %; Eosinophils % 0.1 %; Hematocrit 32.3 % (37.0-47.0); Hemoglobin 10.4 g/dL (11.5-15.3); Lymphocytes # 1.5 10^3/uL (0.8-4.8); Lymphocytes % 17.9 %; Mean Corpuscular HGB Conc 32.2 g/dL (30.0-36.0); Mean Corpuscular Hemoglobin 33.5 pg (28.0-34.0); Mean Corpuscular Volume 104.2 fl (81-99); Mean Platelet Volume 11.6 fL (7.4-10.4); Monocytes # 0.4 10^3/uL (0.2-0.9); Monocytes % 4.1 %; Nucleated Red Blood Cells % 0 %; Platelet Count 75 10^3/cmm (130-400); Red Cell Distribution Width 17.2 % (12.1-15.1); White Blood Count 8.6 10^3/uL (4.0-10.0)
[2021-04-05 16:05] LABS: INR 1.31 (0.8-1.2)
[2021-04-05 16:11] LABS: Alanine Aminotransferase 21 U/L (0-33); Albumin Level 1.9 g/dL (3.5-5.2); Alkaline Phosphatase 134 IU/L (35-105); Anion Gap 16.3 (5-19); Aspartate Amino Transferase 16 U/L (0-32); Blood Urea Nitrogen 6 mg/dL (8-23); Calcium 7.4 mg/dL (8.5-10.5); Carbon Dioxide 20 mmol/L (22-29); Chloride 102 mmol/L (98-107); Globulin 2.5 g/dL (1.3-4.6); Glomerular Filtration Rate 160.2 mL/min (90-130); Glucose 414 mg/dL (65-115); Osmolality Calculated 297 mOsm/kg (285-295); Sodium 136 mmol/L (136-145); Total Bilirubin 0.4 mg/dL (0.15-1.2); Total Protein 4.4 g/dL (6.6-8.7)
[2021-04-05 16:12] LABS: Creatinine Clr Calc Pharmacy 65.9224; Lactate (Lactic Acid level) 6.1 mmol/L (0.5-2.2); Potassium 2.3 mmol/L (3.5-5.1)
[2021-04-05 16:20] LABS: Glucose Point of Care 397 mg/dL (70-110)
[2021-04-05 16:40] LABS: SARS Covid-2 Antigen Negative (Negative)
--- NOTE | 2021-04-05 17:00 | PC.PHAR ---
PT MEDICATIONS VERIFIED BY NURSE MURRAY AT [facility] ON 04/05/21
--- NOTE | 2021-04-05 17:05 | CTR_ITS ---
PROCEDURE INFORMATION: Exam: CT Abdomen And Pelvis With Contrast Exam date and time: 04/05/2021 5:05 PM Age: 65 years old Clinical indication: Fever; Patient HX: Sepsis TECHNIQUE: Imaging protocol: Computed tomography of the abdomen and pelvis with contrast. Radiation optimization: All CT scans at this facility use at least one of these dose optimization techniques: automated exposure control; mA and/or kV adjustment per patient size (includes targeted exams where dose is matched to clinical indication); or iterative reconstruction. Contrast material: OMNI 300; Contrast volume: 95 ml; Contrast route: INTRAVENOUS (IV); COMPARISON: CT abdomen pelvis wo con [id number] 03/14/2021 4:10 AM RADIATION DOSE METRICS: Total DLP (mGy-cm): 1701.59 FINDINGS: Lungs: Bibasilar atelectasis versus infiltrate. Pleural spaces: Moderate right and small left pleural effusion. Heart: Coronary artery atherosclerotic calcifications. Liver: Hepatic steatosis. Gallbladder and bile ducts: Cholecystectomy. Pancreas: Normal. No ductal dilation. Spleen: Normal. No splenomegaly. Adrenal glands: Normal. No mass. Kidneys and ureters: Several bilateral renal cysts, negative for follow-up advised. Stomach and bowel: Prominent fluid in the small bowel with mucosal enhancement suggestive of an enteritis. Constipation. Gastric surgical sutures. Appendix: No evidence of appendicitis. Intraperitoneal space: Unremarkable. No free air. No significant fluid collection. Vasculature: Unremarkable. No abdominal aortic aneurysm. Lymph nodes: Unremarkable. No enlarged lymph nodes. Urinary bladder: Voss catheter in the urinary bladder. Reproductive: Unremarkable as visualized. Bones/joints: Left hip surgical hardware. Soft tissues: Diffuse nonspecific subcutaneous edema about the abdomen and pelvis. Subcutaneous emphysema over the right posterior pelvis, nonspecific. Possible posterior midline decubitus ulcer seen in the gluteal region, please correlate clinically. CT/CT abdomen pelvis w con* [id number] IMPRESSION: 1. Prominent fluid in the small bowel with mucosal enhancement suggestive of an enteritis. 2. Moderate right and small left pleural effusion. 3. Coronary artery atherosclerotic calcifications. 4. Bibasilar atelectasis versus infiltrate. 5. Hepatic steatosis. 6. Cholecystectomy. 7. Constipation. 8. Diffuse nonspecific subcutaneous edema about the abdomen and pelvis. 9. Subcutaneous emphysema over the right posterior pelvis, nonspecific. 10. Left kidney cyst, negative for follow-up advised. 11. Several bilateral renal cysts, negative for follow-up advised. 12. Possible posterior midline decubitus ulcer seen in the gluteal region, please correlate clinically.
[2021-04-05] MEDS: potassium chloride ER 20 mEq Tablet PO (17:09)
--- NOTE | 2021-04-05 17:10 | PM.HP ---
Providers/Chief Complaint Primary Care Provider: Geeta Anders VASCULAR NURSE-C Chief Complaint: HYPOTENSION, HYPERGLYCEMIA History of Present Illness Almita Mckinley is a 65 year old female with a past medical history of [id number] diabetes mellitus, recent history of left hip fracture, history of COVID-19 infection, refeeding syndrome, alcohol abuse in the past, history of lactic acidosis, anxiety, depression, protein energy malnutrition, decubitus ulcer, recent history of ileocolonic intussusception, E. coli ESBL UTI who was recently discharged from the hospital on 03/21 to [facility]. During that hospitalization multiple medication were changed. She has brought into the hospital today via EMS from [facility]. As per the nurse at [facility] patient recently started developing lower limb swelling for which she received 5 days of 40 mg of Lasix. She started developing swelling in her right so there was a concern of cellulitis and started on doxycycline. Today patient was hypotensive and lethargic so sent into the ER. In the ER patient was found to have systolic blood pressures of 70s over she she received 2 L of IV fluids after which her blood pressure stabilized. Blood work in the ER showed white count of 8.6, hemoglobin of 10.4, INR 1.3, sodium of 136, potassium of 2.3, creatinine of 0.4, lactate of 6.1, calcium of 7.4, albumin of 1.9 Review of Systems General: Reports: 10 or more systems reviewed and unremarkable except in HPI and below Const: Denies: fever(s), chills, body aches, change in appetite, change in weight, malaise, night sweats, diaphoresis, change in sleep pattern, daytime sleepiness or snoring Eyes: Denies: change in vision, blurry vision, photophobia, eye discomfort or eye discharge ENMT: Denies: throat pain, enlarged tonsils, hoarseness, mouth pain, oral sores, dry mouth, tinnitus, nasal congestion or post nasal drip Card: Denies: chest pain, palpitations, irregular heart rhythm, edema, swelling of feet/ankles, lightheadedness, syncope, pre-syncope, dyspnea on exertion, orthopnea, leg pain with exertion or acrocyanosis Resp: Denies: dyspnea, productive cough, non-productive cough, wheezing, stridor, pain on inspiration, change in phlegm color, hemoptysis or chest congestion GI: Denies: abdominal pain, nausea, vomiting, hematemesis, coffee ground emesis, dysphagia, heartburn, diarrhea, constipation, bloating, GI cramping, change in bowel habits, pain on defecation, hematochezia or melena : Denies: flank pain, dysuria, urinary frequency, urinary urgency, urinary hesitancy, nocturia or hematuria Musc: Denies: neck pain, back pain, extremity pain, joint pain, joint swelling, joint redness, joint stiffness or limited range of motion Neuro: Denies: headache(s), numbness in extremities, weakness in extremities, sensory changes, lack of coordination, difficulty walking, frequent falls, dizziness, vertigo, confusion, Slurred speech present, difficulty communicating thoughts or seizure-like activity Psych: Denies: anxiety, depression, mood swings, panic attacks, hopelessness or irritability Endo: Denies: polyuria, polydipsia, tired all the time, cold intolerance, excessive sweating, flushing or heat intolerance Antonio/Lymph: Denies: easy bruising or easy bleeding All/Imm: Denies: tongue swelling, facial swelling or acute wheezing Medications/Allergies Home Medications Medication Instructions Recorded Confirmed Last Taken Type biotin 10,000 mcg capsule 10,000 mcg PO DAILY 04/03/20 04/05/21 04/05/21 08:00 History calcium citrate 315 mg-vitamin D3 1 tab PO DAILY 04/03/20 04/05/21 04/05/21 08:00 History 5 mcg (200 unit) tablet (Calcium Citrate + D) coenzyme Q10 10 mg capsule (Co 10 mg PO TID 04/03/20 04/05/21 04/05/21 08:00 History Q-10) fluticasone propionate 50 1 spray INTRANASAL DAILY 04/03/20 04/05/21 04/05/21 08:00 History mcg/actuation nasal spray,suspension (Allergy Relief (fluticasone)) pantoprazole 40 mg tablet,delayed 40 mg PO DAILY 04/03/20 04/05/21 04/05/21 08:00 History release simvastatin 40 mg tablet 40 mg PO DAILY 04/03/20 04/05/21 04/05/21 08:00 History albuterol sulfate 90 mcg/actuation 2 puff INHALATION QID PRN 01/18/21 04/05/21 Unknown History aerosol inhaler meclizine 25 mg tablet 25 mg PO TID PRN 01/18/21 04/05/21 Unknown History quetiapine 25 mg tablet (Seroquel) 12.5 mg PO BID 01/18/21 04/05/21 04/05/21 08:00 History venlafaxine 75 mg capsule,extended 75 mg PO DAILY 01/18/21 04/05/21 04/05/21 08:00 History release 24 hr clonazepam 1 mg tablet 0.5 mg PO BID PRN #0 tab 01/30/21 04/05/21 01/17/21 Rx ferrous sulfate 325 mg (65 mg 325 mg PO EVERY OTHER DAY #90 tab 01/30/21 04/05/21 04/05/21 08:00 Rx iron) tablet,delayed release thiamine mononitrate (vit B1) 100 100 mg PO DAILY #90 tab 01/30/21 04/05/21 04/05/21 08:00 Rx mg tablet (Vitamin B-1 (mononitrate)) fluticasone furoate 200 1 ea INHALATION DAILY 03/13/21 04/05/21 04/05/21 08:00 History mcg-vilanterol 25 mcg/dose inhalation powder (Breo Ellipta) Lactobacillus acidoph-L.bulgaricus 1 tab PO BID 30 Days #60 tab 03/21/21 04/05/21 04/05/21 08:00 Rx 1 million cell tablet furosemide 20 mg tablet 20 mg PO DAILY PRN #0 tab 03/21/21 04/05/21 03/12/21 Rx gabapentin 300 mg capsule 300 mg PO TID 30 Days #90 cap 03/21/21 04/05/21 04/05/21 08:00 Rx metoprolol tartrate 25 mg tablet 12.5 mg PO BID@0900,2100 #180 tab 03/21/21 04/05/21 04/05/21 08:00 Rx midodrine 5 mg tablet 10 mg PO TID 30 Days #180 tab 03/21/21 04/05/21 04/05/21 08:00 Rx sitagliptin 100 mg tablet (Januvia) 100 mg PO DAILY #30 tab 03/21/21 04/05/21 04/05/21 08:00 Rx multivitamin 1 tab PO DAILY 03/23/21 04/05/21 04/05/21 08:00 History doxycycline hyclate 100 mg capsule 100 mg PO BID 04/05/21 04/05/21 04/05/21 08:00 History flash glucose scanning reader 04/05/21 04/05/21 Unknown History (FreeStyle Swathi 14 Day [place]) Allergies Allergy/AdvReac Type Severity Reaction Status Date / Time No Known Allergies Allergy Verified 04/05/21 16:59 PFSH Acute PFSH: Medical History (Updated 04/05/21 @ 17:42 by Isac Fernando MD) Anxiety disorder Complete tear of right rotator cuff (~11/2020) COVID-19 Deep tissue injury DJD of right AC (acromioclavicular) joint Enlargement of sternoclavicular joint Fall at home GERD (gastroesophageal reflux disease) High anion gap metabolic acidosis History of alcohol dependence Hyperlipidemia Hypertension Hyperthyroidism Ileocolic intussusception Intertrochanteric fracture of left hip Ketoacidosis Lactic acidosis Macrocytic anemia Major depressive disorder Moderate protein-calorie malnutrition Refeeding syndrome Sarcoidosis diagnosis per available outside records, with patient stating onset in , details unknown, never put on specific treatment per report Thyroid disorder Type 2 diabetes mellitus UTI due to extended-spectrum beta lactamase (ESBL) producing Escherichia coli Vulvar carcinoma Surgical History (Updated 03/18/21 @ 16:01 by Isac Fernando MD) History of carpal tunnel release History of gastric bypass Postoperative state Family History Other Cancer Social History Smoking and tobacco status: former smoker Alcohol intake: former Number of children: 0 Vitals/I&O/Wt Last Vital Signs Temp 88.0 F L 04/05/21 15:22 Pulse 65 04/05/21 15:58 Resp 18 04/05/21 15:58 BP 111/66 04/05/21 15:58 Pulse Ox 99 04/05/21 15:58 Weight last 48 hrs Weight 70.307 kg Physical Exam Narrative: General: No acute distress, AO x3, anasarca, chronically ill-appearing HEENT: PERRLA, pupils bilaterally equal and reactive Chest: Normal vesicular breath sounds, no added sounds, equal good air entry bilaterally CVS: S1-S2 regular, no murmurs, no tachycardia, no gallops, no rubs Abdomen: Soft, nontender, no organomegaly, bowel sounds present Neuro: No focal deficits, no facial deformity, AO x3, power 5/5 in all limbs Skin: NARRATIVE SKIN EXAM: -Deep tissue injury, present over sacrum, largest measuring 2 x 3 cm irregular borders, with black eschar -Multiple DTI's over right and left thigh, largest measuring 1 x 1 cm, irregular borders,black eschar Multiple DTI's present over right calf, largest measuring 1?x 1 cm, irregular?borders Data : 04/05/21 15:30 04/05/21 15:30 A&P Assessment and plan (1) Sepsis: Status: Acute (2) Hypotension: Status: Acute (3) Pressure injury, unstageable, with eschar: Status: Acute (4) Type 2 diabetes mellitus: Status: Acute Qualifiers: Diabetes mellitus terminal makeup operator insulin use: without terminal makeup operator use Diabetes mellitus complication status: with neurologic complications Diabetes mellitus complication detail: with unspecified neuropathy Qualified Code(s): E11.40 - Type 2 diabetes mellitus with diabetic neuropathy, unspecified (5) Lactic acidosis: Status: Acute (6) Moderate protein-calorie malnutrition: Status: Acute (7) Physical deconditioning: Status: Acute (8) Anasarca: Status: Acute (9) Hypokalemia: Status: Acute (10) Refeeding syndrome: Status: Chronic Plan Hypotension: Most likely secondary to dehydration from recent diuretic getting at intermediate. Adrenal insufficiency was ruled out during last admission. Resolved with IV fluids. For now hold off on further fluids. Continue with home dose of midodrine. Telemetry. Sepsis unlikely but cannot rule out given recent history of ESBL E. coli and ongoing diarrhea cannot rule out C. difficile. Check blood culture, urinalysis, stool for C. difficile, procalcitonin. For now start patient on vancomycin and Zosyn. Will de-escalate antibiotics quickly if patient remains hemodynamically stable, afebrile and without leukocytosis within next 24 to 48 hours. Keep mean artery pressure over 65. Pressure injury: Chronic. Unstageable with eschar. We will consult wound care for further evaluation and possible debridement. For now continue with Betadine paint twice daily as per surgical recommendation on recent hospitalization. Frequent turning in bed. Nutrition optimization. Appropriate mattress. Lactic acidosis: Chronic. Most likely secondary dehydration from diuretics at intermediate. IV hydration. Will repeat tomorrow morning. Recent history of ileocolonic intussusception. Check CT abdomen pelvis. Anasarca: Most likely from protein energy malnutrition and hypoalbuminemia. Chronically ill patient. Check echocardiogram. Protein supplementation. Hypokalemia: Most likely secondary to to aggressive diuresis at intermediate. Replete. History of refeeding syndrome: Check magnesium, phosphorus. Replete potassium. Moderate protein energy malnutrition Physical deconditioning. Dietitian consult. Type 2 diabetes mellitus: Insulin sliding scale at medium dose protocol. Regular diet with protein supplementation. Heparin for DVT prophylaxis. Protonix for PUD prophylaxis. Attestations Medical Necessity Statement*: Admission for more than 2 midnights for management of hypertension, unstageable pressure injury, lactic acidosis Time Spent in Patient Care: Greater than 35 minutes Coding Level of Care Code Acute Quality Associate for [facility] Diagnoses Hypotension I95.9 Physical deconditioning R53.81 Pressure injury, unstageable, with eschar L89.95 Sepsis A41.9 Lactic acidosis E87.2 Moderate protein-calorie malnutrition E44.0 Type 2 diabetes mellitus E11.40 Diabetes mellitus intermediate insulin use: without terminal makeup operator use Diabetes mellitus complication status: with neurologic complications Diabetes mellitus complication detail: with unspecified neuropathy Anasarca R60.1 Hypokalemia E87.6 Refeeding syndrome E87.8
[2021-04-05] MEDS: potassium chloride premix 100 ML 25 MEQ IV (17:14)
[2021-04-05] MEDS: insulin regular-human 100 units/1 mL 10 UNIT IVP (17:38)
[2021-04-05 17:40] LABS: Glucose Point of Care 412 mg/dL (70-110)
[2021-04-05 17:40] LABS: Bilirubin Urine Neg (Negative); Blood Urine Neg (Negative); Glucose Urine UA 4+ (Normal); Ketones Urine Negative (Negative); Leukocyte Esterase Urine Negative (Negative); Nitrate Urine Positive (Negative); Protein Urine Neg (Negative); Urine Appearance Clear (CLEAR); Urine Color Yellow (Yellow); Urobilinogen Urine Neg (Negative); pH Urine 5 (5-7)
[2021-04-05 17:41] LABS: Add Urine Culture? Yes; Bacteria Urine 3+ /hpf; RBC Urine RARE /hpf (0-2); Squamous Epithelial Cell Urine RARE /hpf (0-5); WBC Urine 15-25 /hpf (0-5)
[2021-04-05 17:44] LABS: Magnesium 1.4 mg/dL (1.7-2.3); Phosphorus 2.5 mg/dL (2.5-4.5)
[2021-04-05] MEDS: iohexol 300 mg/mL 100 mL Btl IV (17:54)
[2021-04-05] MEDS: midodrine 5 mg TABLET 10 MG PO ×2 (18:35→22:02)
[2021-04-05] MEDS: sodium chlor 0.9% + KCl 40 mEq 40 MEQ/1,000 ML BAG 50 MEQ IV (18:36)
[2021-04-05] MEDS: piperacillin-tazobactam 3.375 GM in sodium chloride 0.9% (plus) 50 ML IV (18:36)
--- NOTE | 2021-04-05 18:54 | PC.NURSE ---
provider notified of Hypotension. provider states will infused albumin, give midodrine, and bolus of fluids and reassessed.
--- NOTE | 2021-04-05 19:32 | PC.NURSE ---
ultrasound at bedside. patient in no obivosu distress. Patinet on civil engineer at this time.
[2021-04-05 19:35] LABS: Glucose Point of Care 313 mg/dL (70-110)
[2021-04-05] MEDS: quetiapine 25 mg Tablet 12.5 MG PO (22:01)
[2021-04-05] MEDS: atorvastatin 40 mg Tablet 20 MG PO (22:02)
[2021-04-05] MEDS: gabapentin 300 mg Capsule PO (22:03)
[2021-04-05] MEDS: heparin 5,000 unit/mL INJ 1 mL 5000 UNIT SUBCUT (22:03)
[2021-04-05 22:36] LABS: Glucose Point of Care 216 mg/dL (70-110)
[2021-04-05] MEDS: insulin lispro 100 unit/1 mL SUBCUT (22:42)
[2021-04-06] VITALS (92 sets, daily range): BP systolic 81–131; BP diastolic 37–71; PULSE 75–119; RESP 0–26; TEMP 33.2–36.7; O2SAT 90–100; BMI 28.7
[2021-04-06 00:26] LABS: Charge for UA Resulting for Rev
[2021-04-06 00:56] LABS: Add Urine Microscopic? YES; Bilirubin Urine Neg (Negative); Blood Urine Neg (Negative); Glucose Urine UA Norm (Normal); Ketones Urine Negative (Negative); Leukocyte Esterase Urine Trace (Negative); Nitrate Urine Negative (Negative); Protein Urine Neg (Negative); Urine Appearance Clear (CLEAR); Urine Color Colorless (Yellow); Urobilinogen Urine Norm (Negative); pH Urine 6.5 (5-7)
[2021-04-06] MEDS: piperacillin-tazobactam 3.375 GM in sodium chloride 0.9% (plus) 50 ML IV ×3 (02:01→19:02)
[2021-04-06 04:04] LABS: Basophils % 0.3 %; Hematocrit 26.7 % (37.0-47.0); Hemoglobin 8.8 g/dL (11.5-15.3); Lymphocytes # 0.7 10^3/uL (0.8-4.8); Lymphocytes % 9.4 %; Mean Corpuscular Hemoglobin 32.8 pg (28.0-34.0); Mean Corpuscular Volume 99.6 fl (81-99); Mean Platelet Volume 11.6 fL (7.4-10.4); Monocytes # 0.1 10^3/uL (0.2-0.9); Monocytes % 1.3 %; Neutrophils # 6.66 10^3/uL (1.8-7.7); Neutrophils % 88.6 %; Nucleated Red Blood Cells % 0 %; Platelet Count 77 10^3/cmm (130-400); Red Blood Count 2.68 10^6/uL (4.1-5.3); Red Cell Distribution Width 17.2 % (12.1-15.1); White Blood Count 7.5 10^3/uL (4.0-10.0)
[2021-04-06] MEDS: vancomycin 1,000 MG in sodium chloride 0.9% 250 ML 250 MG IV ×2 (04:22→18:03)
[2021-04-06 04:24] LABS: Alanine Aminotransferase 16 U/L (0-33); Albumin Level 2.3 g/dL (3.5-5.2); Alkaline Phosphatase 108 IU/L (35-105); Anion Gap 15.9 (5-19); Aspartate Amino Transferase 12 U/L (0-32); Blood Urea Nitrogen 5 mg/dL (8-23); Calcium 7.2 mg/dL (8.5-10.5); Carbon Dioxide 18 mmol/L (22-29); Chloride 109 mmol/L (98-107); Glomerular Filtration Rate 160.2 mL/min (90-130); Glucose 172 mg/dL (65-115); Magnesium 1.3 mg/dL (1.7-2.3); Osmolality Calculated 291 mOsm/kg (285-295); Phosphorus 2.4 mg/dL (2.5-4.5); Sodium 140 mmol/L (136-145); Total Bilirubin 0.5 mg/dL (0.15-1.2); Total Protein 4.3 g/dL (6.6-8.7)
[2021-04-06 04:35] LABS: Slide Review Slide Review Perform
[2021-04-06 04:37] LABS: Creatinine Clr Calc Pharmacy 66.9264
[2021-04-06 04:38] LABS: Potassium 2.9 mmol/L (3.5-5.1)
[2021-04-06] MEDS: potassium chloride ER 20 mEq Tablet 40 MEQ PO (05:01)
[2021-04-06] MEDS: norepinephrine 8 MG in dextrose 5 % 500 ML 7.62 MG IV (05:02)
[2021-04-06 08:13] LABS: Glucose Point of Care 181 mg/dL (70-110)
[2021-04-06] MEDS: quetiapine 25 mg Tablet 12.5 MG PO (09:03)
[2021-04-06] MEDS: gabapentin 300 mg Capsule PO (09:04)
[2021-04-06] MEDS: midodrine 5 mg TABLET 10 MG PO (09:04)
[2021-04-06] MEDS: venlafaxine ER (24HR) 75 mg Capsule PO (09:04)
[2021-04-06] MEDS: pantoprazole DR 40 mg Tablet PO (09:04)
[2021-04-06] MEDS: fluticasone nasal spray 16gm Btl 1 SPRAY INTRANASAL (09:05)
[2021-04-06] MEDS: heparin 5,000 unit/mL INJ 1 mL 5000 UNIT SUBCUT ×2 (09:08→20:54)
[2021-04-06] MEDS: insulin lispro 100 unit/1 mL SUBCUT (09:08)
--- NOTE | 2021-04-06 09:26 | PC.NURSE ---
Right arm appears edematous with weeping. Levophed infusing in right FA IV. Able to flush and pull from line. Verified patency with Nader Basilio RN. Extremity elevated with warm compress applied out of precaution. Levophed infusion moved to different IV access. Will continue to monitor R arm IV site.
--- NOTE | 2021-04-06 10:13 | PC.CHAP ---
Pastoral Care Encounter/Spiritual Assessment Type of Contact [] Declined buildings painter visit [] Patient/Family/Request visit [] Outpatient visit [] Follow-up visit [] Physician referral [] Code/Alert [x] Routine visit [] Staff referral [] Actively dying [x] Patient sleeping [] Family support [] [] Out of room [] Palliative care [] [] Receiving care in room [] Pre-surgical visit [] Trauma [] Long length of stay [x] ICU visit [] Other: Relational/Emotional Strength [] Patient feels connected with others/family/visitors/staff [] Distress [] Loneliness/isolation [] Abandonment Spirituality of Patient [] Person of [place] [] Attends [facility] of their [place] [] Believes in Prayer [] Reads Bible or Orthodoxy materials [] There are Spiritual issues to be addressed 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 Interventions [x] Prayer [] Active listening [] Non-anxious presence [] Spiritual/emotional support [] Crisis/trauma care [] Spiritual counseling [] Bereavement support [] Provided bereavement packet [] Provided Bible/devotional materials [] Provided toy/stuffed animal, coloring book to patient or family member [] Provided Communion [] Anointing/[place] [] Salvation [x] Completed spiritual assessment [] Other: Impact on Illness or Injury [] Angry [] Fearful [] Anxious [] Often cries [] Exhaustion [] Unable to work [] Unable to attend hindu [] Unable to walk/stand [] Unable to read [] Unable to drive [] Unable to eat/drink [] Unable to sleep [] Unable to be with family [] Patient intubated [] Other: Summary Time spent with patient
[2021-04-06] MEDS: lanolin oint 7 gm 1 APPLIC TOPICAL (11:22)
[2021-04-06 11:43] LABS: Glucose Point of Care 148 mg/dL (70-110)
--- NOTE | 2021-04-06 12:47 | P.PN_ITS ---
Subjective Subjective: Patient was seen and examined this morning, hypothermia is improving, patient is awake, lethargic. overnight she had to be started on Levophed because of hypotension. Her other Vitals and labs have been reviewed. Medications: Medication Review Details: Generic Name Dose Route Start Last Admin Trade Name [place]row PRN Reason Stop Dose Admin Atorvastatin Calci um 20 mg 04/05/21 21:00 04/05/21 22:02 Atorvastatin 40 Mg Tablet PO 20 mg BEDTIME MACK Administration Fluticasone Propio wm 1 spray 04/06/21 09:00 04/06/21 09:05 Fluticasone Nasa l [place] 16gm Btl INTRANASAL 1 applic DAILY MACK Administration Gabapentin 300 mg 04/05/21 21:00 04/06/21 09:04 Gabapentin 300 M g Capsule PO 300 mg TID MACK Administration Heparin Sodium (Po rcine) 5,000 unit 04/05/21 20:00 04/06/21 09:08 Heparin 5,000 Un it/Ml Inj 1 Ml SUBCUT 5,000 unit Q12H MACK Administration Piperacillin Sod/T azobactam 50 mls @ 12.5 mls /hr 04/05/21 18:30 04/06/21 11:18 Sod 3.375 gm/ So dium Chloride IV 12.5 mls/hr Q8H MACK Administration Protocol Vancomycin HCl 1,0 00 mg/ 250 mls @ 250 mls /hr 04/06/21 03:45 04/06/21 05:37 Sodium Chloride IV Infused Q12H MACK Infusion Protocol Potassium Chloride /Sodium Chloride 40 meq in 1,000 m ls @ 50 mls/hr 04/05/21 17:45 04/06/21 15:26 Sodium Chlor 0.9 % + Kcl 40 Meq IV 04/07/21 09:44 50 mls/hr .Q20H MACK Administration Albumin Human 25 gm in 100 mls @ 60 mls/hr 04/05/21 18:45 04/06/21 11:19 Albumin IV 04/06/21 23:59 25 mls/hr Q8H MACK Administration Norepinephrine Bit artrate 8 mg 508 mls @ 0 mls/h r 04/06/21 04:45 04/06/21 05:51 / Dextrose IV 3 mcg/min .Q0M MACK 11.43 mls/hr Titration Protocol Per Protocol Insulin Human Lisp ro 0 unit 02/24/22 20:32 04/06/21 09:08 Insulin Lispro 1 00 Unit/1 Ml SUBCUT 1 unit WM&BEDTIME MACK Administration Protocol Lanolin 1 applic 04/06/21 08:20 04/06/21 11:22 Lanolin Oint 7 G m TOPICAL 1 applic PRN PRN Administration DRYNESS Midodrine 10 mg 04/05/21 21:00 04/06/21 09:04 Midodrine 5 Mg T ablet PO 10 mg TID MACK Administration Pantoprazole Sodiu m 40 mg 04/06/21 09:00 04/06/21 09:[address] 40 Mg Tablet PO 40 mg DAILY MACK Administration Quetiapine Fumarat e 12.5 mg 04/05/21 21:00 04/06/21 09:03 Quetiapine 25 Mg Tablet PO 12.5 mg BID@0900,2100 MACK Administration Venlafaxine HCl 75 mg 04/06/21 09:00 04/06/21 09:04 Venlafaxine Er ( 24hr) 75 Mg Capsul e PO 75 mg DAILY MACK Administration Vitals/I&O/Wt Last Vital Signs Temp 97.4 F L 04/06/21 05:00 Pulse 100 04/06/21 10:30 Resp 10 L 04/06/21 10:30 BP 110/58 04/06/21 10:30 Pulse Ox 90 04/06/21 09:00 04/05/21 04/06/21 04/06/21 22:59 06:59 14:59 Intake Total 3550 / 3550 856.223 / 4406.223 Output Total 900 / 900 Balance 2650 / 2650 856.223 / 3506.223 Weight last 48 hrs Weight 73.482 kg Weight 72.575 kg Weight 70.307 kg Physical Exam Narrative: Alert and awake HENMT: COMMON NORMALS: normocephalic and atraumatic HEAD & SCALP: normocephalic and atraumatic Eye: COMMON NORMALS: no scleral icterus Chest: COMMONS NORMALS: normal inspection of the chest and normal palpation of entire chest wall CHEST: Yes Symmetrical chest wall rise Resp: COMMON NORMALS: normal respiratory effort, No retractions, No use of accessory muscles and clear to auscultation bilaterally EFFORT & INSPECTION: Yes symmetric chest movement AUSCULTATION: clear to auscultation bilaterally OTHER: Diminished air entry at RT lower lung field Cardio: COMMON NORMALS: regular rate, regular rhythm, S1 normal heart sound present, S2 normal heart sound present, No gallops present (Cardio), No murmurs present (Cardio), No rub (Cardio) and Peripheral pulses 2+ throughout RATE: regular rate RHYTHM: regular rhythm HEART SOUNDS: S1 normal heart sound present and S2 normal heart sound present PERIPHERAL PULSES: Peripheral pulses 2+ throughout GI: COMMON NORMALS: Normal to inspection, nondistended, normoactive bowel sounds present, Soft to palpation, non-tender, No hepatosplenomegaly present and no masses AUSCULTATION: Yes normoactive bowel sounds PALPATION: Yes Soft to palpation and Yes No hepatosplenomegaly present RECTAL EXAM: deferred Extremity: OTHER: b/l feet 2+ pitting edema Skin: NARRATIVE SKIN EXAM: Multiple pressure tissue injury ulcers. Unstageable with black adherent eschar. Data : 04/06/21 03:34 04/06/21 03:34 Micro: Microbiology 04/06/21 00:15 MRSA Culture - Final Nose 04/05/21 17:04 Urine Culture - Preliminary Urine,Clean Catch Gram Negative Rods 04/06/21 00:15 C.difficile Toxin B Gene (PCR) - Final Stool - Stool Aspirate 04/05/21 15:41 Blood Culture - Preliminary Blood SPECIMEN COLLECTED 04/05/21 15:30 Blood Culture - Preliminary Blood SPECIMEN COLLECTED A&P Assessment and plan (1) Sepsis: Status: Acute (2) Hypotension: Status: Acute (3) Pressure injury, unstageable, with eschar: Status: Acute (4) Type 2 diabetes mellitus: Status: Acute Qualifiers: Diabetes mellitus complication detail: with unspecified neuropathy Diabetes mellitus complication status: with neurologic complications Diabetes mellitus detention insulin use: without accounts payable professional use Qualified Code(s): E11.40 - Type 2 diabetes mellitus with diabetic neuropathy, unspecified (5) Lactic acidosis: Status: Acute (6) Moderate protein-calorie malnutrition: Status: Acute (7) Physical deconditioning: Status: Acute (8) Anasarca: Status: Acute (9) Hypokalemia: Status: Acute (10) Refeeding syndrome: Status: Chronic Plan Assessment: Sepsis likely secondary to extensive wound in the lower extremity as well as on the back: Hypothermic, hypotensive, currently requiring Levophed, recent history of ESBL E. coli, Adrenal insufficiency was ruled out during last admission. Blood culture Urine culture:GNR Lactic acid:6.1 Follow repeat lactic acid stool C. difficile: Negative Follow stool : Studies MRSA nares positive Procalcitonin: CT abdomen and pelvis with contrast:Moderate right and small left pleural effusion.Bibasilar atelectasis versus infiltrate. Diffuse nonspecific subcutaneous edema about the abdomen and pelvis. Subcutaneous emphysema over the right posterior pelvis, nonspecific. ?XR chest?: Small right pleural effusion and patchy largely right lower lobe atelectasis versus infiltrate. Currently on Vanco and Zosyn. Continue Levophed. Will attempt to titrate off Levophed and put her back on midodrine. Continue Wound care. Surgery on board Pressure injury: Chronic. Unstageable with eschar. Appreciate surgery recommendation Continue with Betadine paint twice daily as per surgical recommendation on recent hospitalization. Frequent turning in bed. Nutrition optimization. Appropriate mattress. # Superficial venous thrombosis: right cephalic vein distally extending into the antecubital fossa. Continue aspirin 81 mg daily Continue heparin 5000 mg every 12 hours Anasarca: Most likely from PEM and hypoalbuminemia. Chronically ill patient. 2D echo: Protein supplementation. DM2 : Insulin sliding scale at medium dose protocol. Hypokalemia: Most likely secondary to to aggressive diuresis at detention. Replete. H/O refeeding syndrome: Monitor electrolytes (magnesium , phosphorus , potassium ) . Replete accordingly Moderate protein energy malnutrition: Regular diet with protein supplementation. Physical deconditioning. Dietitian consult. Heparin for DVT prophylaxis. Protonix for PUD prophylaxis. Attestations Medical Necessity Statement*: Patient is still in hospital for management of sepsis. Coding Level of Care Code Acute Patient Support Specialist for [facility] Fwd Exam Detailed Diagnoses Sepsis A41.9 Hypotension I95.9 Pressure injury, unstageable, with eschar L89.95 Type 2 diabetes mellitus E11.40 Diabetes mellitus complication detail: with unspecified neuropathy Diabetes mellitus complication status: with neurologic complications Diabetes mellitus detention insulin use: without detention use Lactic acidosis E87.2 Moderate protein-calorie malnutrition E44.0 Physical deconditioning R53.81 Anasarca R60.1 Hypokalemia E87.6 Refeeding syndrome E87.8
[2021-04-06] MEDS: sodium chlor 0.9% + KCl 40 mEq 40 MEQ/1,000 ML BAG 50 MEQ IV (15:26)
[2021-04-06 18:05] LABS: Glucose Point of Care 101 mg/dL (70-110)
[2021-04-06] MEDS: mupirocin oint 22 gm 1 APPLIC NASAL (19:01)
[2021-04-06 21:13] LABS: Glucose Point of Care 90 mg/dL (70-110)
[2021-04-07] VITALS (56 sets, daily range): BP systolic 87–149; BP diastolic 50–98; PULSE 79–117; RESP 0–21; TEMP 36.6; O2SAT 81–98
[2021-04-07] MEDS: piperacillin-tazobactam 3.375 GM in sodium chloride 0.9% (plus) 50 ML IV ×3 (03:00→18:09)
[2021-04-07] MEDS: acetaminophen 325 mg Tablet 650 MG PO ×2 (03:33→20:42)
[2021-04-07] MEDS: CLONazepam 0.5 mg Tablet PO ×2 (03:41→18:38)
[2021-04-07 03:53] LABS: Basophils % 0.2 %; Hematocrit 27.9 % (37.0-47.0); Hemoglobin 8.3 g/dL (11.5-15.3); Lymphocytes % 16.6 %; Mean Corpuscular HGB Conc 29.7 g/dL (30.0-36.0); Mean Corpuscular Hemoglobin 32.9 pg (28.0-34.0); Mean Corpuscular Volume 110.7 fl (81-99); Mean Platelet Volume 12.3 fL (7.4-10.4); Monocytes # 0.4 10^3/uL (0.2-0.9); Monocytes % 3.4 %; Neutrophils # 9.41 10^3/uL (1.8-7.7); Neutrophils % 79.5 %; Nucleated Red Blood Cells % 0 %; Platelet Count 79 10^3/cmm (130-400); Red Blood Count 2.52 10^6/uL (4.1-5.3); Red Cell Distribution Width 19.3 % (12.1-15.1); White Blood Count 11.8 10^3/uL (4.0-10.0)
[2021-04-07 04:10] LABS: Slide Review Slide Review Perform
[2021-04-07 04:18] LABS: Lactate (Lactic Acid level) 2.5 mmol/L (0.5-2.2); Procalcitonin 0.21 ng/mL (0-0.5)
[2021-04-07] MEDS: vancomycin 1,000 MG in sodium chloride 0.9% 250 ML 250 MG IV (04:18)
[2021-04-07 04:19] LABS: Blood Urea Nitrogen 4 mg/dL (8-23); Calcium 7.5 mg/dL (8.5-10.5); Carbon Dioxide 17 mmol/L (22-29); Chloride 113 mmol/L (98-107); Glomerular Filtration Rate 223.3 mL/min (90-130); Glucose 77 mg/dL (65-115); Osmolality Calculated 298 mOsm/kg (285-295); Sodium 146 mmol/L (136-145); Vancomycin Trough 17.4 ug/mL (10-15)
[2021-04-07 04:22] LABS: Anion Gap 20.1 (5-19); Potassium 4.1 mmol/L (3.5-5.1)
[2021-04-07 07:07] LABS: Glucose Point of Care 102 mg/dL (70-110)
[2021-04-07] MEDS: ferrous sulfate EC 325 mg Tablet PO (07:59)
[2021-04-07] MEDS: aspirin 81 mg EC Tablet PO (07:59)
[2021-04-07] MEDS: midodrine 5 mg TABLET 10 MG PO ×3 (07:59→20:42)
[2021-04-07] MEDS: gabapentin 300 mg Capsule PO ×3 (07:59→20:42)
[2021-04-07] MEDS: venlafaxine ER (24HR) 75 mg Capsule PO (07:59)
[2021-04-07] MEDS: pantoprazole DR 40 mg Tablet PO (07:59)
[2021-04-07] MEDS: heparin 5,000 unit/mL INJ 1 mL 5000 UNIT SUBCUT (07:59)
[2021-04-07] MEDS: mupirocin oint 22 gm 1 APPLIC NASAL ×2 (08:00→18:10)
[2021-04-07] MEDS: fluticasone nasal spray 16gm Btl 1 SPRAY INTRANASAL (08:00)
[2021-04-07] MEDS: quetiapine 25 mg Tablet 12.5 MG PO (08:04)
[2021-04-07] MEDS: dextrose 5% 1,000 ML 30 ML IV (10:37)
[2021-04-07 11:14] LABS: Glucose Point of Care 159 mg/dL (70-110)
[2021-04-07] MEDS: insulin lispro 100 unit/1 mL SUBCUT ×2 (11:20→20:45)
--- NOTE | 2021-04-07 13:33 | P.PN_ITS ---
Subjective Subjective: Patient was seen and examined this morning, currently she is off Levophed, was slightly drowsy in the morning, complaining of pain, has remained afebrile, blood pressure is holding on midodrine. Lactic acid has improved significantly. Medications: Medication Review Details: Generic Name Dose Route Start Last Admin Trade Name [place]q PRN Reason Stop Dose Admin Atorvastatin Calci um 20 mg 04/05/21 21:00 04/05/21 22:02 Atorvastatin 40 Mg Tablet PO 20 mg BEDTIME MACK Administration Fluticasone Propio wm 1 spray 04/06/21 09:00 04/06/21 09:05 Fluticasone Nasa l [place] 16gm Btl INTRANASAL 1 applic DAILY MACK Administration Gabapentin 300 mg 04/05/21 21:00 04/06/21 09:04 Gabapentin 300 M g Capsule PO 300 mg TID MACK Administration Heparin Sodium (Po rcine) 5,000 unit 04/05/21 20:00 04/06/21 09:08 Heparin 5,000 Un it/Ml Inj 1 Ml SUBCUT 5,000 unit Q12H MACK Administration Piperacillin Sod/T azobactam 50 mls @ 12.5 mls /hr 04/05/21 18:30 04/06/21 11:18 Sod 3.375 gm/ So dium Chloride IV 12.5 mls/hr Q8H MACK Administration Protocol Vancomycin HCl 1,0 00 mg/ 250 mls @ 250 mls /hr 04/06/21 03:45 04/06/21 05:37 Sodium Chloride IV Infused Q12H MACK Infusion Protocol Potassium Chloride /Sodium Chloride 40 meq in 1,000 m ls @ 50 mls/hr 04/05/21 17:45 04/06/21 15:26 Sodium Chlor 0.9 % + Kcl 40 Meq IV 04/07/21 09:44 50 mls/hr .Q20H MACK Administration Albumin Human 25 gm in 100 mls @ 60 mls/hr 04/05/21 18:45 04/06/21 11:19 Albumin IV 04/06/21 23:59 25 mls/hr Q8H MACK Administration Norepinephrine Bit artrate 8 mg 508 mls @ 0 mls/h r 04/06/21 04:45 04/06/21 05:51 / Dextrose IV 3 mcg/min .Q0M MACK 11.43 mls/hr Titration Protocol Per Protocol Insulin Human Lisp ro 0 unit 04/05/21 20:32 04/06/21 09:08 Insulin Lispro 1 00 Unit/1 Ml SUBCUT 1 unit WM&BEDTIME MACK Administration Protocol Lanolin 1 applic 04/06/21 08:20 04/06/21 11:22 Lanolin Oint 7 G m TOPICAL 1 applic PRN PRN Administration DRYNESS Midodrine 10 mg 04/05/21 21:00 04/06/21 09:04 Midodrine 5 Mg T ablet PO 10 mg TID MACK Administration Pantoprazole Sodiu m 40 mg 04/06/21 09:00 04/06/21 09:[address] 40 Mg Tablet PO 40 mg DAILY MACK Administration Quetiapine Fumarat e 12.5 mg 04/05/21 21:00 04/06/21 09:03 Quetiapine 25 Mg Tablet PO 12.5 mg BID@0900,2100 MACK Administration Venlafaxine HCl 75 mg 04/06/21 09:00 04/06/21 09:04 Venlafaxine Er ( 24hr) 75 Mg Capsul e PO 75 mg DAILY MACK Administration Vitals/I&O/Wt Last Vital Signs Temp 98.0 F 04/06/21 08:00 Pulse 117 H 04/07/21 08:00 Resp 17 04/07/21 08:00 BP 123/98 04/07/21 08:00 Pulse Ox 97 04/07/21 06:30 04/06/21 04/07/21 04/07/21 22:59 06:59 14:59 Intake Total 400 / 1400 641.745 / 2041.745 350 / 350 Output Total 1225 / 1225 250 / 1475 Balance -825 / 175 391.745 / 566.745 350 / 350 Weight last 48 hrs Weight 73.346 kg Weight 73.482 kg Weight 72.575 kg Weight 70.307 kg Physical Exam Narrative: Alert and awake HENMT: COMMON NORMALS: normocephalic and atraumatic HEAD & SCALP: normocephalic and atraumatic Eye: COMMON NORMALS: no scleral icterus GENERAL EYE: appearance normal, both eyes and all related structures Chest: COMMONS NORMALS: normal inspection of the chest and normal palpation of entire chest wall CHEST: Yes Symmetrical chest wall rise Resp: COMMON NORMALS: normal respiratory effort, No retractions, No use of accessory muscles and clear to auscultation bilaterally EFFORT & INSPECTION: Yes symmetric chest movement AUSCULTATION: clear to auscultation bilaterally OTHER: Diminished air entry at RT lower lung field Cardio: COMMON NORMALS: regular rate, regular rhythm, S1 normal heart sound present, S2 normal heart sound present, No gallops present (Cardio), No murmurs present (Cardio), No rub (Cardio) and Peripheral pulses 2+ throughout RATE: regular rate RHYTHM: regular rhythm HEART SOUNDS: S1 normal heart sound present and S2 normal heart sound present PERIPHERAL PULSES: Peripheral pulses 2+ throughout GI: COMMON NORMALS: Normal to inspection, nondistended, normoactive bowel so unds present, Soft to palpation, non-tender, No hepatosplenomegaly present and no masses AUSCULTATION: Yes normoactive bowel sounds PALPATION: Yes Soft to palpation and Yes No hepatosplenomegaly present RECTAL EXAM: deferred Extremity: COMMON NORMALS: no clubbing, cyanosis or edema and no pedal edema OTHER: b/l feet 2+ pitting edema Skin: NARRATIVE SKIN EXAM: Multiple pressure tissue injury ulcers. Unstageable with black adherent eschar. Data : 04/07/21 03:05 04/07/21 03:05 Micro: Microbiology 04/06/21 18:00 Enteric Pathogens (PCR) - Final Stool Routine Collection 04/05/21 17:04 Urine Culture - Final Urine,Clean Catch Escherichia coli esbl 04/06/21 18:00 Stool Lactoferrin - Final Stool 04/05/21 15:41 Blood Culture - Preliminary Blood NEGATIVE TO DATE 04/05/21 15:30 Blood Culture - Preliminary Blood NEGATIVE TO DATE 04/06/21 00:15 MRSA Culture - Final Nose A&P Assessment and plan (1) Sepsis: Status: Acute (2) Hypotension: Status: Acute (3) Pressure injury, unstageable, with eschar: Status: Acute (4) Type 2 diabetes mellitus: Status: Acute Qualifiers: Diabetes mellitus complication detail: with unspecified neuropathy Diabetes mellitus complication status: with neurologic complications 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 coli, Adrenal insufficiency was ruled out during last admission. Blood culture Urine culture:GNR Lactic acid:6.1 Repeat lactic acid:2.5 stool C. difficile: Negative Follow stool : Stool enteric parasitic , bacterial panel by PCR negative, stool lactoferrin negative MRSA nares positive: On mupirocin Blood culture: NTD Procalcitonin:0.21 2D echo: CT abdomen and pelvis with contrast:Moderate right and small left pleural effusion.Bibasilar atelectasis versus infiltrate. Diffuse nonspecific subcutaneous edema about the abdomen and pelvis. Subcutaneous emphysema over the right posterior pelvis, nonspecific. XR chest?: Small right pleural effusion and patchy largely right lower lobe atelectasis versus infiltrate. Currently on Zosyn., Vancomycin has been discontinued Continue Levophed. Will attempt to titrate off Levophed and put her back on midodrine. Continue Wound care. Surgery on board Thrombocytopenia: Admission platelet count: 28901: Low clinical suspicion for HIT: 4 T score: Low (will follow HIT panel ) : Given new superficial vein thrombosis. Can be started on Eliquis if needed. Low clinical suspicion for TTP: Plasmic score: Low: PBS reviewed: No Schistocytes , no clear hemolysis seen (we will hold off on sending Deonte TS 13 assay) DIC panel: PT , PTT serum fibrinogen, D-Dimer, FDP, ( ISTH criteria) : No active oozing from any I.V site. Continue to monitor CBC. Currently no active signs of bleeding , petechiae , purpura. Continue Lovenox 40 subcu daily. Possibly secondary to sepsis, chronic illness, cannot conclusively rule out drug-induced. Vancomycin has been discontinued We will continue with aspirin for now. Pressure injury: Chronic. Unstageable with eschar. Appreciate surgery recommendation Continue with Betadine paint twice daily as per surgical recommendation on recent hospitalization. Frequent turning in bed. Nutrition optimization. Appropriate mattress. # Superficial venous thrombosis: right cephalic vein distally extending into the antecubital fossa. Continue aspirin 81 mg daily On Lovenox. Anasarca: Most likely from PEM and hypoalbuminemia. Chronically ill patient. 2D echo: Protein supplementation. DM2 : Insulin sliding scale at medium dose protocol. Hypokalemia: Most likely secondary to to aggressive diuresis at long term. Replete. H/O refeeding syndrome: Monitor electrolytes (magnesium , phosphorus , potassium ) . Replete accordingly Moderate protein energy malnutrition: Regular diet with protein supplementation. Physical deconditioning. Dietitian consult. DVT prophylaxis. On Lovenox Protonix for PUD prophylaxis. Attestations Medical Necessity Statement*: Patient needs to be in hospital for management of sepsis , thrombocytopenia. Time Spent in Patient Care: Greater than 35 minutes (>than 50% of time spent in counselling and/or direct pt care on unit) . Critical Care Time: 60 Other Attestations: The high probability of a clinically significant, sudden or life threatening deterioration of the patient's [] system(s) required my full and direct attention, intervention and personal management. The critical care time is as shown. This time is in addition to time spent performing any reported procedures but includes the following: [x] Data and vital sign review and interpretation [x] Patient assessment, examination and intervention [x] Documentation [x] Medication orders and management Coding Level of Care Code Acute Tire Changer for [facility] Fwd Exam Detailed Diagnoses Sepsis A41.9 Hypotension I95.9 Pressure injury, unstageable, with eschar L89.95 Type 2 diabetes mellitus E11.40 Diabetes mellitus complication detail: with unspecified neuropathy Diabetes mellitus complication status: with neurologic complications Diabetes mellitus [facility] insulin use: without ferry terminal supervisor use Lactic acidosis E87.2 Moderate protein-calorie malnutrition E44.0 Physical deconditioning R53.81 Anasarca R60.1 Hypokalemia E87.6 Refeeding syndrome E87.8
[2021-04-07] MEDS: loperamide 2 mg Capsule 4 MG PO (18:08)
[2021-04-07 18:09] LABS: Glucose Point of Care 107 mg/dL (70-110)
--- NOTE | 2021-04-07 18:30 | NUR.SHIFT ---
Shift Note Frequent safety and comfort rounds continue. Orders and/or nursing care completed as indicated. Patient monitored for response to intervention and treatment(s). Education provided includes treatment of decubs and repositioning Patient aware and assist with turning iv pulled left upper arm replaced under ultrasound left upper arm . Will continue to monitor.frequent turn and padded pressure points linen change done weeping edema noted... rectal tube intact very little out at this shift toney with dark urine noted.
[2021-04-07 20:37] LABS: Glucose Point of Care 302 mg/dL (70-110)
[2021-04-07] MEDS: atorvastatin 40 mg Tablet 20 MG PO (20:44)
[2021-04-08] VITALS (49 sets, daily range): BP systolic 95–147; BP diastolic 55–100; PULSE 79–132; RESP 3–25; TEMP 36.1–36.6; O2SAT 61–96
[2021-04-08] MEDS: piperacillin-tazobactam 3.375 GM in sodium chloride 0.9% (plus) 50 ML IV ×3 (03:28→17:48)
[2021-04-08 04:48] LABS: Basophils % 0.1 %; Eosinophils % 0.1 %; Hematocrit 28.1 % (37.0-47.0); Hemoglobin 8.3 g/dL (11.5-15.3); Lymphocytes # 2.6 10^3/uL (0.8-4.8); Mean Corpuscular HGB Conc 29.5 g/dL (30.0-36.0); Mean Corpuscular Hemoglobin 33.1 pg (28.0-34.0); Mean Platelet Volume 11.9 fL (7.4-10.4); Monocytes # 0.3 10^3/uL (0.2-0.9); Monocytes % 2.4 %; Neutrophils % 71.7 %; Nucleated Red Blood Cells % 0.2 %; Platelet Count 48 10^3/cmm (130-400); Red Blood Count 2.51 10^6/uL (4.1-5.3); Red Cell Distribution Width 19.6 % (12.1-15.1); White Blood Count 10.5 10^3/uL (4.0-10.0)
[2021-04-08 05:07] LABS: INR 1.33 (0.8-1.2); Partial Thromboplastin Time 24.5 SECONDS (23.9-36.7)
[2021-04-08 05:10] LABS: D Dimer 1.46 ug/mIFEU (0-0.59)
[2021-04-08 06:03] LABS: Alanine Aminotransferase 14 U/L (0-33); Alkaline Phosphatase 94 IU/L (35-105); Potassium 3.5 mmol/L (3.5-5.1); Sodium 144 mmol/L (136-145)
[2021-04-08 06:48] LABS: Albumin Level 2.4 g/dL (3.5-5.2); Blood Urea Nitrogen 3 mg/dL (8-23); Calcium 7.5 mg/dL (8.5-10.5); Carbon Dioxide 18 mmol/L (22-29); Chloride 112 mmol/L (98-107); Creatinine Clr Calc Pharmacy 67.7295; Globulin 1.7 g/dL (1.3-4.6); Glomerular Filtration Rate 160.2 mL/min (90-130); Glucose 57 mg/dL (65-115); Total Bilirubin 0.6 mg/dL (0.15-1.2); Total Protein 4.1 g/dL (6.6-8.7)
[2021-04-08 06:49] LABS: Anion Gap 17.5 (5-19); Osmolality Calculated 292 mOsm/kg (285-295)
[2021-04-08 06:53] LABS: Aspartate Amino Transferase 23 U/L (0-32); Lactate Dehydrogenase 228 U/L (135-214)
[2021-04-08 07:20] LABS: Fibrinogen 150 mg/dL (174-498)
[2021-04-08 07:34] LABS: Glucose Point of Care 41 mg/dL (70-110)
[2021-04-08 07:34] LABS: Glucose Point of Care 45 mg/dL (70-110)
[2021-04-08] MEDS: pantoprazole DR 40 mg Tablet PO (08:16)
[2021-04-08] MEDS: gabapentin 300 mg Capsule PO ×3 (08:16→20:49)
[2021-04-08] MEDS: midodrine 5 mg TABLET 10 MG PO ×3 (08:16→20:49)
[2021-04-08] MEDS: venlafaxine ER (24HR) 75 mg Capsule PO (08:16)
[2021-04-08] MEDS: quetiapine 25 mg Tablet 12.5 MG PO ×2 (08:17→20:49)
[2021-04-08] MEDS: fluticasone nasal spray 16gm Btl 1 SPRAY INTRANASAL (08:19)
[2021-04-08] MEDS: mupirocin oint 22 gm 1 APPLIC NASAL ×2 (08:19→17:49)
[2021-04-08 08:30] LABS: Glucose Point of Care 79 mg/dL (70-110)
--- NOTE | 2021-04-08 08:59 | PC.NURSE ---
blood sugar check low doctor aware and given juice and breakfast with good appitite . weeping edema noted over body orders noted
[2021-04-08 09:45] LABS: Glucose Point of Care 108 mg/dL (70-110)
--- NOTE | 2021-04-08 12:25 | PC.SOCIAL ---
IMM Update Pg. 2 of IMM updated and reviewed with patient, who verbalized understanding. Copy provided.
--- NOTE | 2021-04-08 13:11 | P.PN_ITS ---
Subjective Subjective: Patient was seen and examined this morning, currently she is off Levophed, continue to maintain good map Diarrhea has improved, close to 1100 cc urine output in the last 24 hours, continues to have anasarca, Platelet count dropped to 48,000 today, H&H has remained stable, has continued to remain afebrile. Currently alert awake oriented, mentation is sound, had lunch today. No other acute events. N.p.o. after midnight for possible debridement. Medications: Medication Review Details: Generic Name Dose Route Start Last Admin Trade Name Winstonq PRN Reason Stop Dose Admin Atorvastatin Calci um 20 mg 04/05/21 21:00 04/05/21 22:02 Atorvastatin 40 Mg Tablet PO 20 mg BEDTIME MACK Administration Fluticasone Propio wm 1 spray 04/06/21 09:00 04/06/21 09:05 Fluticasone Nasa l [place] 16gm Btl INTRANASAL 1 applic DAILY MACK Administration Gabapentin 300 mg 04/05/21 21:00 04/06/21 09:04 Gabapentin 300 M g Capsule PO 300 mg TID MACK Administration Heparin Sodium (Po rcine) 5,000 unit 04/05/21 20:00 04/06/21 09:08 Heparin 5,000 Un it/Ml Inj 1 Ml SUBCUT 5,000 unit Q12H MACK Administration Piperacillin Sod/T azobactam 50 mls @ 12.5 mls /hr 04/05/21 18:30 04/06/21 11:18 Sod 3.375 gm/ So dium Chloride IV 12.5 mls/hr Q8H MACK Administration Protocol Vancomycin HCl 1,0 00 mg/ 250 mls @ 250 mls /hr 04/06/21 03:45 04/06/21 05:37 Sodium Chloride IV Infused Q12H MACK Infusion Protocol Potassium Chloride /Sodium Chloride 40 meq in 1,000 m ls @ 50 mls/hr 04/05/21 17:45 04/06/21 15:26 Sodium Chlor 0.9 % + Kcl 40 Meq IV 04/07/21 09:44 50 mls/hr .Q20H MACK Administration Albumin Human 25 gm in 100 mls @ 60 mls/hr 04/05/21 18:45 04/06/21 11:19 Albumin IV 04/06/21 23:59 25 mls/hr Q8H MACK Administration Norepinephrine Bit artrate 8 mg 508 mls @ 0 mls/h r 04/06/21 04:45 04/06/21 05:51 / Dextrose IV 3 mcg/min .Q0M MACK 11.43 mls/hr Titration Protocol Per Protocol Insulin Human Lisp ro 0 unit 04/05/21 20:32 04/06/21 09:08 Insulin Lispro 1 00 Unit/1 Ml SUBCUT 1 unit WM&BEDTIME MACK Administration Protocol Lanolin 1 applic 04/06/21 08:20 04/06/21 11:22 Lanolin Oint 7 G m TOPICAL 1 applic PRN PRN Administration DRYNESS Midodrine 10 mg 04/05/21 21:00 04/06/21 09:04 Midodrine 5 Mg T ablet PO 10 mg TID MACK Administration Pantoprazole Sodiu m 40 mg 04/06/21 09:00 04/06/21 09:[address] 40 Mg Tablet PO 40 mg DAILY MACK Administration Quetiapine Fumarat e 12.5 mg 04/05/21 21:00 04/06/21 09:03 Quetiapine 25 Mg Tablet PO 12.5 mg BID@0900,2100 MACK Administration Venlafaxine HCl 75 mg 04/06/21 09:00 04/06/21 09:04 Venlafaxine Er ( 24hr) 75 Mg Capsul e PO 75 mg DAILY MACK Administration Vitals/I&O/Wt Last Vital Signs Temp 98 F 04/07/21 10:00 Pulse 127 H 04/08/21 09:00 Resp 18 04/08/21 09:00 BP 119/91 04/08/21 09:00 Pulse Ox 61 L 04/08/21 09:00 04/07/21 04/08/21 04/08/21 22:59 06:59 14:59 Intake Total 750 / 1400 450 / 450 Output Total 350 / 1525 50 / 1575 Balance 400 / -125 -50 / -175 450 / 450 Weight last 48 hrs Weight 74.389 kg Weight 73.346 kg Physical Exam Narrative: Alert and awake HENMT: COMMON NORMALS: normocephalic and atraumatic HEAD & SCALP: normocephalic and atraumatic Eye: GENERAL EYE: appearance normal, both eyes and all related structures Chest: CHEST: Yes Symmetrical chest wall rise Resp: COMMON NORMALS: normal respiratory effort EFFORT & INSPECTION: Yes symmetric chest movement OTHER: Diminished air entry at RT lower lung field Cardio: COMMON NORMALS: regular rate, regular rhythm, S1 normal heart sound present, S2 normal heart sound present, No gallops present (Cardio), No murmurs present (Cardio), No rub (Cardio) and Peripheral pulses 2+ throughout RATE: regular rate RHYTHM: regular rhythm HEART SOUNDS: S1 normal heart sound present and S2 normal heart sound present PERIPHERAL PULSES: Peripheral pulses 2+ throughout GI: COMMON NORMALS: Normal to inspection, nondistended, normoactive bowel sounds present, Soft to palpation, non-tender, No hepatosplenomegaly present and no masses AUSCULTATION: Yes normoactive bowel sounds PALPATION: Yes Soft to palpation and Yes No hepatosplenomegaly present RECTAL EXAM: deferred Extremity: OTHER: b/l feet 2+ pitting edema, bilateral upper extremity swelling. Skin: NARRATIVE SKIN EXAM: Multiple pressure tissue injury ulcers. Unstageable with black adherent eschar. Data : 04/08/21 04:20 04/08/21 04:20 Micro: Microbiology 04/06/21 18:00 Parasite Antigen Panel - Final Stool Routine Collection 04/06/21 18:00 Enteric Pathogens (PCR) - Final Stool Routine Collection 04/05/21 17:04 Urine Culture - Final Urine,Clean Catch Escherichia coli esbl A&P Assessment and plan (1) Sepsis: Status: Acute (2) Hypotension: Status: Acute (3) Pressure injury, unstageable, with eschar: Status: Acute (4) Type 2 diabetes mellitus: Status: Acute Qualifiers: Diabetes mellitus complication detail: with unspecified neuropathy Diabetes mellitus complication status: with neurologic complications Diabetes mellitus mcfp insulin use: without termite exterminator helper use Qualified Code(s): E11.40 - Type 2 diabetes mellitus with diabetic neuropathy, unspecified (5) Lactic acidosis: Status: Acute (6) Moderate protein-calorie malnutrition: Status: Acute (7) Physical deconditioning: Status: Acute (8) Anasarca: Status: Acute (9) Hypokalemia: Status: Acute (10) Refeeding syndrome: Status: Chronic Plan Assessment: Sepsis likely secondary to extensive wound in the lower extremity as well as on the back, UTI Hypothermic, hypotensive, currently requiring Levophed, recent history of ESBL E. coli, Adrenal insufficiency was ruled out during last admission. Blood culture Urine culture:GNR: ESBL E. coli Lactic acid:6.1 Repeat lactic acid:2.5 stool C. difficile: Negative Follow stool : Stool enteric parasitic , bacterial panel by PCR negative, stool lactoferrin negative MRSA nares positive: On mupirocin Blood culture: NTD Procalcitonin:0.21 2D echo: CT abdomen and pelvis with contrast:Moderate right and small left pleural effusion.Bibasilar atelectasis versus infiltrate. Diffuse nonspecific subcutaneous edema about the abdomen and pelvis. Subcutaneous emphysema over the right posterior pelvis, nonspecific. XR chest?: Small right pleural effusion and patchy largely right lower lobe atelectasis versus infiltrate. Currently on Zosyn., Vancomycin has been discontinued Continue Levophed. Will attempt to titrate off Levophed and put her back on midodrine. Continue Wound care. Surgery on board #DIC : Likely secondary to sepsis PT :16.80 INR : 1.33 , D-Dimer: 1.46 , serum fibrinogen: 150 , FDP : Positive. Continue to monitor. Will manage based on the presentation. Thrombocytopenia: Admission platelet count: 60513: Low clinical suspicion for HIT: 4 T score: Low (will follow HIT panel ) : Given new superficial vein thrombosis. Can be started on Eliquis if needed. Low clinical suspicion for TTP: Plasmic score: Low: PBS reviewed: No Schistocytes , no clear hemolysis seen (we will hold off on sending Deonte TS 13 assay) :LDH : 228, haptoglobin: 95 , total bilirubin normal DIC panel: PT , PTT serum fibrinogen, D-Dimer, FDP, ( ISTH criteria) : No active oozing from any I.V site. Continue to monitor CBC. Currently no active signs of bleeding , petechiae , purpura. Continue Lovenox 40 subcu daily. Possibly secondary to sepsis, chronic illness, cannot conclusively rule out drug-induced. Vancomycin has been discontinued We will continue with aspirin for now. Pressure injury: Chronic. Unstageable with eschar. Appreciate surgery recommendation Continue with Betadine paint twice daily as per surgical recommendation on recent hospitalization. Frequent turning in bed. Nutrition optimization. Appropriate mattress. # Superficial venous thrombosis: right cephalic vein distally extending into the antecubital fossa. Continue aspirin 81 mg daily On Lovenox. Anasarca: Most likely from PEM and hypoalbuminemia. Chronically ill patient. 2D echo: Protein supplementation. DM2 : SSI, FSG , regular diet. Hypokalemia: Most likely secondary to to aggressive diuresis at [facility]. Replete. H/O refeeding syndrome: Monitor electrolytes (magnesium , phosphorus , potassium ) . Replete accordingly Moderate protein energy malnutrition: Regular diet with protein supplementation. Physical deconditioning. Dietitian consult. DVT prophylaxis. On Lovenox Protonix for PUD prophylaxis. Attestations Medical Necessity Statement*: Patient is still in hospital for management of sepsis. Time Spent in Patient Care: Greater than 35 minutes (>than 50% of time spent in counselling and/or direct pt care on unit) . Critical Care Time: The high probability of a clinically significant, sudden or life threatening deterioration of the patient's [] system(s) required my full and direct attention, intervention and personal management. The critical care time is as shown. 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
[2021-04-08 16:58] LABS: Glucose Point of Care 200 mg/dL (70-110)
[2021-04-08] MEDS: CLONazepam 0.5 mg Tablet PO (17:13)
--- NOTE | 2021-04-08 17:30 | NUR.SHIFT ---
Shift Note Frequent safety and comfort rounds continue. Orders and/or nursing care completed as indicated. Patient monitored for response to intervention and treatment(s). Education provided includes possibe debridment of ulcers with escar. Patient and understand and agree Will continue to monitor and npo after mn for possible porcedure in am
[2021-04-08] MEDS: FUROsemide 10 mg/mL SDV 2mL 20 MG IVP (17:48)
[2021-04-08] MEDS: atorvastatin 40 mg Tablet 20 MG PO (20:49)
[2021-04-08 21:47] LABS: Glucose Point of Care 153 mg/dL (70-110)
[2021-04-08] MEDS: morphine 4 mg/mL SDV 1 mL 2 MG IVP (23:41)
[2021-04-09] VITALS (41 sets, daily range): BP systolic 94–144; BP diastolic 53–107; PULSE 85–121; RESP 11–18; TEMP 36.7; O2SAT 89–97
[2021-04-09] MEDS: piperacillin-tazobactam 3.375 GM in sodium chloride 0.9% (plus) 50 ML IV ×3 (01:57→17:47)
[2021-04-09 04:59] LABS: Glucose Point of Care 88 mg/dL (70-110)
[2021-04-09 05:11] LABS: Eosinophils % 0.2 %; Hematocrit 27.2 % (37.0-47.0); Lymphocytes # 1.3 10^3/uL (0.8-4.8); Lymphocytes % 20.8 %; Mean Corpuscular HGB Conc 29.4 g/dL (30.0-36.0); Mean Corpuscular Hemoglobin 32.5 pg (28.0-34.0); Mean Corpuscular Volume 110.6 fl (81-99); Mean Platelet Volume 12.7 fL (7.4-10.4); Monocytes # 0.2 10^3/uL (0.2-0.9); Monocytes % 2.4 %; Neutrophils # 4.77 10^3/uL (1.8-7.7); Neutrophils % 75.8 %; Nucleated Red Blood Cells % 0 %; Platelet Count 40 10^3/cmm (130-400); Red Blood Count 2.46 10^6/uL (4.1-5.3); Red Cell Distribution Width 19.1 % (12.1-15.1); White Blood Count 6.3 10^3/uL (4.0-10.0)
[2021-04-09 05:44] LABS: INR 1.61 (0.8-1.2)
[2021-04-09 05:45] LABS: Partial Thromboplastin Time 53.6 SECONDS (23.9-36.7)
[2021-04-09 05:46] LABS: Fibrinogen 177 mg/dL (174-498)
[2021-04-09 06:14] LABS: Slide Review Slide Review Perform
[2021-04-09 06:44] LABS: Alanine Aminotransferase 12 U/L (0-33); Albumin Level 2.8 g/dL (3.5-5.2); Alkaline Phosphatase 78 IU/L (35-105); Anion Gap 18.1 (5-19); Aspartate Amino Transferase 22 U/L (0-32); Blood Urea Nitrogen 3 mg/dL (8-23); Calcium 7.7 mg/dL (8.5-10.5); Carbon Dioxide 21 mmol/L (22-29); Chloride 109 mmol/L (98-107); Creatinine Clr Calc Pharmacy 66.1229; Globulin 1.3 g/dL (1.3-4.6); Glomerular Filtration Rate 160.2 mL/min (90-130); Glucose 83 mg/dL (65-115); Osmolality Calculated 296 mOsm/kg (285-295); Potassium 3.1 mmol/L (3.5-5.1); Sodium 145 mmol/L (136-145); Total Bilirubin 0.9 mg/dL (0.15-1.2); Total Protein 4.1 g/dL (6.6-8.7)
[2021-04-09] MEDS: gabapentin 300 mg Capsule PO ×3 (09:48→20:36)
[2021-04-09] MEDS: loperamide 2 mg Capsule 4 MG PO (09:49)
[2021-04-09] MEDS: midodrine 5 mg TABLET 10 MG PO ×3 (09:49→20:35)
[2021-04-09] MEDS: pantoprazole DR 40 mg Tablet PO (09:50)
[2021-04-09] MEDS: ferrous sulfate EC 325 mg Tablet PO (09:51)
[2021-04-09] MEDS: lidocaine 1% 5 ML in potassium chloride premix 100 ML 25 ML IV (09:51)
[2021-04-09] MEDS: venlafaxine ER (24HR) 75 mg Capsule PO (09:51)
[2021-04-09] MEDS: quetiapine 25 mg Tablet 12.5 MG PO ×2 (10:09→20:36)
[2021-04-09] MEDS: fluticasone nasal spray 16gm Btl 1 SPRAY INTRANASAL (10:10)
[2021-04-09] MEDS: mupirocin oint 22 gm 1 APPLIC NASAL (10:11)
--- NOTE | 2021-04-09 11:08 | PM.PN ---
Subjective Subjective: Patient was seen and examined this morning, good urine output with Lasix , started having diarrhea again, she is upset about [place]. [place] [address]. No evident bleeding so far. Continue to remain afebrile. WBC count trended down today. currently she is off Levophed, continue to maintain good map. If platelet count continues to drop will consult oncology. Medications: Medication Review Details: Generic Name Dose Route Start Last Admin Trade Name Winstonq PRN Reason Stop Dose Admin Atorvastatin Calci um 20 mg 04/05/21 21:00 04/05/21 22:02 Atorvastatin 40 Mg Tablet PO 20 mg BEDTIME MACK Administration Fluticasone Propio wm 1 spray 04/06/21 09:00 04/06/21 09:05 Fluticasone Nasa l [place] 16gm Btl INTRANASAL 1 applic DAILY MACK Administration Gabapentin 300 mg 04/05/21 21:00 04/06/21 09:04 Gabapentin 300 M g Capsule PO 300 mg TID MACK Administration Heparin Sodium (Po rcine) 5,000 unit 04/05/21 20:00 04/06/21 09:08 Heparin 5,000 Un it/Ml Inj 1 Ml SUBCUT 5,000 unit Q12H MACK Administration Piperacillin Sod/T azobactam 50 mls @ 12.5 mls /hr 04/05/21 18:30 04/06/21 11:18 Sod 3.375 gm/ So dium Chloride IV 12.5 mls/hr Q8H MACK Administration Protocol Vancomycin HCl 1,0 00 mg/ 250 mls @ 250 mls /hr 04/06/21 03:45 04/06/21 05:37 Sodium Chloride IV Infused Q12H MACK Infusion Protocol Potassium Chloride /Sodium Chloride 40 meq in 1,000 m ls @ 50 mls/hr 04/05/21 17:45 04/06/21 15:26 Sodium Chlor 0.9 % + Kcl 40 Meq IV 04/07/21 09:44 50 mls/hr .Q20H MACK Administration Albumin Human 25 gm in 100 mls @ 60 mls/hr 04/05/21 18:45 04/06/21 11:19 Albumin IV 04/06/21 23:59 25 mls/hr Q8H MACK Administration Norepinephrine Bit artrate 8 mg 508 mls @ 0 mls/h r 04/06/21 04:45 04/06/21 05:51 / Dextrose IV 3 mcg/min .Q0M MACK 11.43 mls/hr Titration Protocol Per Protocol Insulin Human Lisp ro 0 unit 04/05/21 20:32 04/06/21 09:08 Insulin Lispro 1 00 Unit/1 Ml SUBCUT 1 unit WM&BEDTIME MACK Administration Protocol Lanolin 1 applic 04/06/21 08:20 04/06/21 11:22 Lanolin Oint 7 G m TOPICAL 1 applic PRN PRN Administration DRYNESS Midodrine 10 mg 04/05/21 21:00 04/06/21 09:04 Midodrine 5 Mg T ablet PO 10 mg TID MACK Administration Pantoprazole Sodiu m 40 mg 04/06/21 09:00 04/06/21 09:[address] 40 Mg Tablet PO 40 mg DAILY MACK Administration Quetiapine Fumarat e 12.5 mg 04/05/21 21:00 04/06/21 09:03 Quetiapine 25 Mg Tablet PO 12.5 mg BID@0900,2100 MACK Administration Venlafaxine HCl 75 mg 04/06/21 09:00 04/06/21 09:04 Venlafaxine Er ( 24hr) 75 Mg Capsul e PO 75 mg DAILY MACK Administration Vitals/I&O/Wt Last Vital Signs Temp 98.0 F 04/09/21 04:00 Pulse 116 H 04/09/21 08:00 Resp 12 04/09/21 08:00 BP 115/78 04/09/21 08:00 Pulse Ox 90 04/09/21 08:00 04/08/21 04/09/21 04/09/21 22:59 06:59 14:59 Intake Total 1075.5 / 1525.5 50 / 50 Output Total 1000 / 1000 1400 / 2400 Balance 75.5 / 525.5 -1400 / -874.5 50 / 50 Weight last 48 hrs Weight 70.76 kg Weight 74.389 kg Physical Exam Narrative: Alert and awake HENMT: COMMON NORMALS: normocephalic and atraumatic HEAD & SCALP: normocephalic and atraumatic Eye: COMMON NORMALS: no scleral icterus GENERAL EYE: appearance normal, both eyes and all related structures Chest: COMMONS NORMALS: normal inspection of the chest and normal palpation of entire chest wall CHEST: Yes Symmetrical chest wall rise Resp: COMMON NORMALS: normal respiratory effort EFFORT & INSPECTION: Yes symmetric chest movement OTHER: Diminished air entry at RT lower lung field Cardio: COMMON NORMALS: regular rate, regular rhythm, S1 normal heart sound present, S2 normal heart sound present, No gallops present (Cardio), No murmurs present (Cardio), No rub (Cardio) and Peripheral pulses 2+ throughout RATE: regular rate RHYTHM: regular rhythm HEART SOUNDS: S1 normal heart sound present and S2 normal heart sound present PERIPHERAL PULSES: Peripheral pulses 2+ throughout GI: COMMON NORMALS: Normal to inspection, nondistended, normoactive bowel sounds present, Soft to palpation, non-tender, No hepatosplenomegaly present and no masses AUSCULTATION: Yes normoactive bowel sounds PALPATION: Yes Soft to palpation and Yes No hepatosplenomegaly present RECTAL EXAM: deferred Extremity: COMMON NORMALS: no clubbing, cyanosis or edema and no pedal edema OTHER: b/l feet 2+ pitting edema, bilateral upper extremity swelling. Skin: NARRATIVE SKIN EXAM: Multiple pressure tissue injury ulcers. Unstageable with black adherent eschar. Data : 04/09/21 04:58 04/09/21 04:58 A&P Assessment and plan (1) Sepsis: Status: Acute (2) Hypotension: Status: Acute (3) Pressure injury, unstageable, with eschar: Status: Acute (4) Type 2 diabetes mellitus: Status: Acute Qualifiers: Diabetes mellitus complication detail: with unspecified neuropathy Diabetes mellitus complication status: with neurologic complications Diabetes mellitus machine long goods helper insulin use: without machine long goods helper use Qualified Code(s): E11.40 - Type 2 diabetes mellitus with diabetic neuropathy, unspecified (5) Lactic acidosis: Status: Acute (6) Moderate protein-calorie malnutrition: Status: Acute (7) Physical deconditioning: Status: Acute (8) Anasarca: Status: Acute (9) Hypokalemia: Status: Acute (10) Refeeding syndrome: Status: Chronic Plan Assessment: Sepsis likely secondary to extensive wound in the lower extremity as well as on the back, UTI Hypothermic, hypotensive, currently requiring Levophed, recent history of ESBL E. coli, Adrenal insufficiency was ruled out during last admission. Blood culture Urine culture:GNR: ESBL E. coli Lactic acid:6.1 Repeat lactic acid:2.5 stool C. difficile: Negative Follow stool : Stool enteric parasitic , bacterial panel by PCR negative, stool lactoferrin negative MRSA nares positive: On mupirocin Blood culture: NTD Procalcitonin:0.21 2D echo: Normal LV systolic function with grade 2 diastolic dysfunction.? Ejection fraction 60%. No gross valvular abnormality noted. CT abdomen and pelvis with contrast:Moderate right and small left pleural effusion.Bibasilar atelectasis versus infiltrate. Diffuse nonspecific subcutaneous edema about the abdomen and pelvis. Subcutaneous emphysema over the right posterior pelvis, nonspecific. XR chest?: Small right pleural effusion and patchy largely right lower lobe atelectasis versus infiltrate. Currently on Zosyn., Vancomycin has been discontinued Continue Levophed. Will attempt to titrate off Levophed and put her back on midodrine. Continue Wound care. Surgery on board #DIC : Likely secondary to sepsis PT :16.80 INR : 1.33 , D-Dimer: 1.46 , serum fibrinogen: 150 , FDP : Positive. Continue to monitor. Will manage based on the presentation. Thrombocytopenia: Admission platelet count: 99961: Low clinical suspicion for HIT: 4 T score: Low (will follow HIT panel ) : Given new superficial vein thrombosis. Can be started on Eliquis if needed. Low clinical suspicion for TTP: Plasmic score: Low: PBS reviewed: No Schistocytes , no clear hemolysis seen (we will hold off on sending Deonte TS 13 assay) :LDH : 228, haptoglobin: 95 , total bilirubin normal DIC panel: PT , PTT serum fibrinogen, D-Dimer, FDP, ( ISTH criteria) : No active oozing from any I.V site. Continue to monitor CBC. Currently no active signs of bleeding , petechiae , purpura. Continue Lovenox 40 subcu daily. Possibly secondary to sepsis, chronic illness, cannot conclusively rule out drug-induced. Vancomycin has been discontinued We will continue with aspirin for now. Pressure injury: Chronic. Unstageable with eschar. Appreciate surgery recommendation Continue with Betadine paint twice daily as per surgical recommendation on recent hospitalization. Frequent turning in bed. Nutrition optimization. Appropriate mattress. # Superficial venous thrombosis: right cephalic vein distally extending into the antecubital fossa. Continue aspirin 81 mg daily On Lovenox. Anasarca: Most likely from PEM and hypoalbuminemia. Chronically ill patient. 2D echo: Protein supplementation. DM2 : SSI, FSG , regular diet. Hypokalemia: Most likely secondary to to aggressive diuresis at correction. Replete. H/O refeeding syndrome: Monitor electrolytes (magnesium , phosphorus , potassium ) . Replete accordingly Moderate protein energy malnutrition: Regular diet with protein supplementation. Physical deconditioning. Dietitian consult. DVT prophylaxis. On Lovenox Protonix for PUD prophylaxis. Attestations Medical Necessity Statement*: Patient is still in hospital for management of sepsis, thrombocytopenia. Time Spent in Patient Care: Greater than 35 minutes (>than 50% of time spent in counselling and/or direct pt care on unit). Coding Level of Care Code Acute Child Care Sitter for Chg Fwd Exam Detailed Diagnoses Sepsis A41.9 Hypotension I95.9 Pressure injury, unstageable, with eschar L89.95 Type 2 diabetes mellitus E11.40 Diabetes mellitus complication detail: with unspecified neuropathy Diabetes mellitus complication status: with neurologic complications Diabetes mellitus group home insulin use: without group home use Lactic acidosis E87.2 Moderate protein-calorie malnutrition E44.0 Physical deconditioning R53.81 Anasarca R60.1 Hypokalemia E87.6 Refeeding syndrome E87.8
[2021-04-09 11:56] LABS: Glucose Point of Care 64 mg/dL (70-110)
[2021-04-09] MEDS: dextrose 5 % 500 ML 100 ML IV (12:00)
[2021-04-09 13:42] LABS: Glucose Point of Care 83 mg/dL (70-110)
[2021-04-09 16:59] LABS: Basophils % 0.1 %; Eosinophils % 0.1 %; Hematocrit 28.5 % (37.0-47.0); Hemoglobin 8.9 g/dL (11.5-15.3); Lymphocytes # 1.7 10^3/uL (0.8-4.8); Mean Corpuscular HGB Conc 31.2 g/dL (30.0-36.0); Mean Corpuscular Hemoglobin 32.7 pg (28.0-34.0); Mean Corpuscular Volume 104.8 fl (81-99); Mean Platelet Volume 12.4 fL (7.4-10.4); Monocytes # 0.2 10^3/uL (0.2-0.9); Monocytes % 2.8 %; Neutrophils # 5.73 10^3/uL (1.8-7.7); Neutrophils % 74.4 %; Nucleated Red Blood Cells % 0 %; Platelet Count 54 10^3/cmm (130-400); Red Blood Count 2.72 10^6/uL (4.1-5.3); Red Cell Distribution Width 18.9 % (12.1-15.1); White Blood Count 7.7 10^3/uL (4.0-10.0)
[2021-04-09] MEDS: FUROsemide 10 mg/mL SDV 2mL 20 MG IVP (17:04)
[2021-04-09] MEDS: lidocaine 1% 5 ML in potassium chloride premix 100 ML 50 ML IV (17:27)
[2021-04-09] MEDS: morphine 4 mg/mL SDV 1 mL 2 MG IVP ×2 (17:33→21:34)
[2021-04-09 19:26] LABS: Glucose Point of Care 131 mg/dL (70-110)
[2021-04-09] MEDS: atorvastatin 40 mg Tablet 20 MG PO (20:35)
[2021-04-09 21:32] LABS: Glucose Point of Care 134 mg/dL (70-110)
[2021-04-10] VITALS (51 sets, daily range): BP systolic 103–150; BP diastolic 58–91; PULSE 75–121; RESP 0–17; TEMP 36.1–37.1; O2SAT 80–98
[2021-04-10] MEDS: piperacillin-tazobactam 3.375 GM in sodium chloride 0.9% (plus) 50 ML IV ×3 (03:09→17:49)
[2021-04-10] MEDS: morphine 4 mg/mL SDV 1 mL 2 MG IVP ×4 (04:29→18:36)
[2021-04-10 04:59] LABS: INR 1.38 (0.8-1.2)
[2021-04-10 05:00] LABS: Fibrinogen 247 mg/dL (174-498); Partial Thromboplastin Time 47.3 SECONDS (23.9-36.7)
[2021-04-10 05:06] LABS: Alanine Aminotransferase 14 U/L (0-33); Alkaline Phosphatase 89 IU/L (35-105); Anion Gap 16.6 (5-19); Aspartate Amino Transferase 28 U/L (0-32); Blood Urea Nitrogen 2 mg/dL (8-23); Calcium 7.1 mg/dL (8.5-10.5); Carbon Dioxide 24 mmol/L (22-29); Chloride 107 mmol/L (98-107); Creatinine Clr Calc Pharmacy 66.1229; Globulin 1.4 g/dL (1.3-4.6); Glomerular Filtration Rate 223.3 mL/min (90-130); Glucose 159 mg/dL (65-115); Osmolality Calculated 298 mOsm/kg (285-295); Potassium 3.6 mmol/L (3.5-5.1); Sodium 144 mmol/L (136-145); Total Bilirubin 1.2 mg/dL (0.15-1.2); Total Protein 4.4 g/dL (6.6-8.7)
[2021-04-10 07:10] LABS: Glucose Point of Care 133 mg/dL (70-110)
[2021-04-10] MEDS: pantoprazole DR 40 mg Tablet PO (07:59)
[2021-04-10] MEDS: venlafaxine ER (24HR) 75 mg Capsule PO (07:59)
[2021-04-10] MEDS: gabapentin 300 mg Capsule PO ×3 (07:59→20:33)
[2021-04-10] MEDS: quetiapine 25 mg Tablet 12.5 MG PO ×2 (07:59→20:33)
[2021-04-10] MEDS: midodrine 5 mg TABLET 10 MG PO ×3 (07:59→20:34)
[2021-04-10] MEDS: fluticasone nasal spray 16gm Btl 1 SPRAY INTRANASAL (08:03)
--- NOTE | 2021-04-10 08:07 | PC.NURSE ---
Meds given with small amount of h20. Pt to possibly go to surgery this AM for debridement of wounds. Awaiting stat CBC. Pt resting in bed, AAOx4. MAkes all needs known. Voss and FMS draining to BSD. Small amount of stool leaked around FMS, cleaned per this nurse and mireille changed. PT repositioned q2h and prn. Will monitor.
[2021-04-10 08:14] LABS: Basophils % 0.1 %; Eosinophils % 0.1 %; Hematocrit 29.4 % (37.0-47.0); Hemoglobin 8.8 g/dL (11.5-15.3); Lymphocytes # 1.9 10^3/uL (0.8-4.8); Lymphocytes % 22.8 %; Mean Corpuscular HGB Conc 29.9 g/dL (30.0-36.0); Mean Corpuscular Hemoglobin 32.6 pg (28.0-34.0); Mean Corpuscular Volume 108.9 fl (81-99); Mean Platelet Volume 12.3 fL (7.4-10.4); Monocytes # 0.3 10^3/uL (0.2-0.9); Neutrophils # 6.15 10^3/uL (1.8-7.7); Neutrophils % 73.5 %; Nucleated Red Blood Cells % 0 %; Platelet Count 54 10^3/cmm (130-400); Red Cell Distribution Width 19.4 % (12.1-15.1); White Blood Count 8.4 10^3/uL (4.0-10.0)
--- NOTE | 2021-04-10 09:20 | ANES.PREANE2 ---
Pre-Anesthetic Assessment Height/Weight: Height 1.6 m Weight 70.76 kg Temp Pulse Resp BP Pulse Ox 98.8 F 105 H 9 L 121/73 92 04/10/21 08:00 04/10/21 08:00 04/10/21 08:00 04/10/21 08:00 04/10/21 08:00 Preop Diagnosis: Left intertrochanteric hip fracture Operation Date: 04/10/21 12:00 Proposed Procedures p Debridement sacrum and daniel ext(Not Applicable) - Jose Roberto Cuellar MD Familial anesthetic complications: None Was Beta Omar taken within 24 hours: Yes Was Clonidine taken within 24 hours: N/A Last intake: > 8hrs Social No alcohol and No tobacco Exam alert, oriented x 3, clear to auscultation bilaterally and regular rate & rhythm patient extremely lethargic Airway Dentition: other (missing teeth) CV/HEM plts 54, hypotensive, levo gtt GI Gastroesophageal Reflux Disease Metabolic Diabetes Mellitus Musc/skel sepsis, anasarca Anesthetic Plan ASA status: 4 Anesthesia: General Medications/Allergies Home Medications Medication Instructions Recorded Confirmed Last Taken Type biotin 10,000 mcg capsule 10,000 mcg PO DAILY 04/03/20 04/05/21 04/05/21 08:00 History calcium citrate 315 mg-vitamin D3 1 tab PO DAILY 04/03/20 04/05/21 04/05/21 08:00 History 5 mcg (200 unit) tablet (Calcium Citrate + D) coenzyme Q10 10 mg capsule (Co 10 mg PO TID 04/03/20 04/05/21 04/05/21 08:00 History Q-10) fluticasone propionate 50 1 spray INTRANASAL DAILY 04/03/20 04/05/21 04/05/21 08:00 History mcg/actuation nasal spray,suspension (Allergy Relief (fluticasone)) pantoprazole 40 mg tablet,delayed 40 mg PO DAILY 04/03/20 04/05/21 04/05/21 08:00 History release simvastatin 40 mg tablet 40 mg PO DAILY 04/03/20 04/05/21 04/05/21 08:00 History albuterol sulfate 90 mcg/actuation 2 puff INHALATION QID PRN 01/18/21 04/05/21 Unknown History aerosol inhaler meclizine 25 mg tablet 25 mg PO TID PRN 01/18/21 04/05/21 Unknown History quetiapine 25 mg tablet (Seroquel) 12.5 mg PO BID 01/18/21 04/05/21 04/05/21 08:00 History venlafaxine 75 mg capsule,extended 75 mg PO DAILY 01/18/21 04/05/21 04/05/21 08:00 History release 24 hr clonazepam 1 mg tablet 0.5 mg PO BID PRN #0 tab 01/30/21 04/05/21 01/17/21 Rx ferrous sulfate 325 mg (65 mg 325 mg PO EVERY OTHER DAY #90 tab 01/30/21 04/05/21 04/05/21 08:00 Rx iron) tablet,delayed release thiamine mononitrate (vit B1) 100 100 mg PO DAILY #90 tab 01/30/21 04/05/21 04/05/21 08:00 Rx mg tablet (Vitamin B-1 (mononitrate)) fluticasone furoate 200 1 ea INHALATION DAILY 03/13/21 04/05/21 04/05/21 08:00 History mcg-vilanterol 25 mcg/dose inhalation powder (Breo Ellipta) Lactobacillus acidoph-L.bulgaricus 1 tab PO BID 30 Days #60 tab 03/21/21 04/05/21 04/05/21 08:00 Rx 1 million cell tablet furosemide 20 mg tablet 20 mg PO DAILY PRN #0 tab 03/21/21 04/05/21 03/12/21 Rx gabapentin 300 mg capsule 300 mg PO TID 30 Days #90 cap 03/21/21 04/05/21 04/05/21 08:00 Rx metoprolol tartrate 25 mg tablet 12.5 mg PO BID@0900,2100 #180 tab 03/21/21 04/05/21 04/05/21 08:00 Rx midodrine 5 mg tablet 10 mg PO TID 30 Days #180 tab 03/21/21 04/05/21 04/05/21 08:00 Rx sitagliptin 100 mg tablet (Januvia) 100 mg PO DAILY #30 tab 03/21/21 04/05/21 04/05/21 08:00 Rx multivitamin 1 tab PO DAILY 03/23/21 04/05/21 04/05/21 08:00 History doxycycline hyclate 100 mg capsule 100 mg PO BID 04/05/21 04/05/21 04/05/21 08:00 History flash glucose scanning reader 04/05/21 04/05/21 Unknown History (FreeStyle Swathi 14 Day [place]) Allergies Allergy/AdvReac Type Severity Reaction Status Date / Time No Known Allergies Allergy Verified 04/05/21 16:59 Current Medications Generic Name Dose Route Start Last Admin Trade Name Freq PRN Reason Stop Dose Admin Acetaminophen 650 mg 04/05/21 17:39 04/07/21 20:42 Acetaminophen 325 Mg Tablet PO 650 mg Q6H PRN Administration Mild/Mod Pain Or Temp >/= 101 Atorvastatin Calcium 20 mg 04/05/21 21:00 04/09/21 20:35 Atorvastatin 40 Mg Tablet PO 20 mg BEDTIME MACK Administration Clonazepam 0.5 mg 04/05/21 17:39 04/08/21 17:13 Clonazepam 0.5 Mg Tablet PO 0.5 mg BID PRN Administration Anxiety Ferrous Sulfate 325 mg 04/07/21 09:00 04/09/21 09:51 Ferrous Sulfate Ec 325 Mg Tablet PO 325 mg EVERY OTHER DAY MACK Administration Fluticasone Propionate 1 spray 04/06/21 09:00 04/10/21 08:03 Fluticasone Nasal [place] 16gm Btl INTRANASAL 1 applic DAILY MACK Administration Gabapentin 300 mg 04/05/21 21:00 04/10/21 07:59 Gabapentin 300 Mg Capsule PO 300 mg TID MACK Administration Piperacillin Sod/Tazobactam 50 mls @ 12.5 mls/hr 04/05/21 18:30 04/10/21 07:14 Sod 3.375 gm/ Sodium Chloride IV Infused Q8H MACK Infusion Protocol Dextrose 500 mls @ 100 mls/hr 04/05/21 20:32 04/09/21 19:34 D5w IV Infused ONCE PRN Infusion Adult Acute Hypoglycemia Prot Protocol Norepinephrine Bitartrate 8 mg 508 mls @ 0 mls/hr 04/06/21 04:45 04/07/21 04:00 / Dextrose IV 0 mcg/min .Q0M MACK 0 mls/hr Titration Protocol Per Protocol Lanolin 1 applic 04/06/21 08:20 04/06/21 11:22 Lanolin Oint 7 Gm TOPICAL 1 applic PRN PRN Administration DRYNESS Loperamide HCl 4 mg 04/08/21 07:56 04/09/21 09:49 Loperamide 2 Mg Capsule PO 4 mg QID PRN Administration diarrhea Midodrine 10 mg 04/05/21 21:00 04/10/21 07:59 Midodrine 5 Mg Tablet PO 10 mg TID MACK Administration Morphine Sulfate 2 mg 04/08/21 23:20 04/10/21 04:29 Morphine 4 Mg/Ml Sdv 1 Ml IVP 2 mg Q4H PRN Administration pain Pantoprazole Sodium 40 mg 04/06/21 09:00 04/10/21 07:[address] 40 Mg Tablet PO 40 mg DAILY MACK Administration Quetiapine Fumarate 12.5 mg 04/05/21 21:00 04/10/21 07:59 Quetiapine 25 Mg Tablet PO 12.5 mg BID@0900,2100 MACK Administration Venlafaxine HCl 75 mg 04/06/21 09:00 04/10/21 07:59 Venlafaxine Er (24hr) 75 Mg Capsule PO 75 mg DAILY MACK Administration Additional Medication Information Generic Name Dose Route Start Last Admin Trade Name Freq PRN Reason Stop Dose Admin Atorvastatin Calcium 20 mg 04/05/21 21:00 04/05/21 22:02 Atorvastatin 40 Mg Tablet PO 20 mg BEDTIME MACK Administration Fluticasone Propionate 1 spray 04/06/21 09:00 04/06/21 09:05 Fluticasone Nasal [place] 16gm Btl INTRANASAL 1 applic DAILY MACK Administration Gabapentin 300 mg 04/05/21 21:00 04/06/21 09:04 Gabapentin 300 Mg Capsule PO 300 mg TID MACK Administration Heparin Sodium (Porcine) 5,000 unit 04/05/21 20:00 04/06/21 09:08 Heparin 5,000 Unit/Ml Inj 1 Ml SUBCUT 5,000 unit Q12H MACK Administration Piperacillin Sod/Tazobactam 50 mls @ 12.5 mls/hr 04/05/21 18:30 04/06/21 11:18 Sod 3.375 gm/ Sodium Chloride IV 12.5 mls/hr Q8H MACK Administration Protocol Vancomycin HCl 1,000 mg/ 250 mls @ 250 mls/hr 04/06/21 03:45 04/06/21 05:37 Sodium Chloride IV Infused Q12H MACK Infusion Protocol Potassium Chloride/Sodium Chloride 40 meq in 1,000 mls @ 50 mls/hr 04/05/21 17:45 02/25/22 15:26 Sodium Chlor 0.9% + Kcl 40 Meq IV 04/07/21 09:44 50 mls/hr .Q20H MACK Administration Albumin Human 25 gm in 100 mls @ 60 mls/hr 04/05/21 18:45 04/06/21 11:19 Albumin IV 04/06/21 23:59 25 mls/hr Q8H MACK Administration Norepinephrine Bitartrate 8 mg 508 mls @ 0 mls/hr 04/06/21 04:45 04/06/21 05:51 / Dextrose IV 3 mcg/min .Q0M MACK 11.43 mls/hr Titration Protocol Per Protocol Insulin Human Lispro 0 unit 04/05/21 20:32 04/06/21 09:08 Insulin Lispro 100 Unit/1 Ml SUBCUT 1 unit WM&BEDTIME MACK Administration Protocol Lanolin 1 applic 04/06/21 08:20 04/06/21 11:22 Lanolin Oint 7 Gm TOPICAL 1 applic PRN PRN Administration DRYNESS Midodrine 10 mg 04/05/21 21:00 04/06/21 09:04 Midodrine 5 Mg Tablet PO 10 mg TID MACK Administration Pantoprazole Sodium 40 mg 04/06/21 09:00 04/06/21 09:[address] 40 Mg Tablet PO 40 mg DAILY MACK Administration Quetiapine Fumarate 12.5 mg 04/05/21 21:00 04/06/21 09:03 Quetiapine 25 Mg Tablet PO 12.5 mg BID@0900,2100 MACK Administration Venlafaxine HCl 75 mg 04/06/21 09:00 04/06/21 09:04 Venlafaxine Er (24hr) 75 Mg Capsule PO 75 mg DAILY MACK Administration [facility] Anesthesia Medical History (Updated 04/05/21 @ 17:42 by Isac Fernando MD) Anxiety disorder Complete tear of right rotator cuff (~11/2020) COVID-19 Deep tissue injury DJD of right AC (acromioclavicular) joint Enlargement of sternoclavicular joint Fall at home GERD (gastroesophageal reflux disease) High anion gap metabolic acidosis History of alcohol dependence Hyperlipidemia Hypertension Hyperthyroidism Ileocolic intussusception Intertrochanteric fracture of left hip Ketoacidosis Lactic acidosis Macrocytic anemia Major depressive disorder Moderate protein-calorie malnutrition Refeeding syndrome Sarcoidosis diagnosis per available outside records, with patient stating onset in , details unknown, never put on specific treatment per report Thyroid disorder Type 2 diabetes mellitus UTI due to extended-spectrum beta lactamase (ESBL) producing Escherichia coli Vulvar carcinoma Surgical History (Updated 03/18/21 @ 16:01 by Isac Fernando MD) History of carpal tunnel release History of gastric bypass Postoperative state Family History Other Cancer Social History Smoking and tobacco status: former smoker Alcohol intake: former Number of children: 0 Data Anesthesia : 04/10/21 07:55 04/10/21 03:56 Short CBC 04/09/21 04/09/21 04/10/21 Range/Units 04:58 16:50 07:55 WBC 6.3 7.7 8.4 (4.0-10.0) 10^3/uL Hgb 8.0 L 8.9 L 8.8 L (11.5-15.3) g/dL Hct 27.2 L 28.5 L 29.4 L (37.0-47.0) % MCV 110.6 H 104.8 H D 108.9 H (81-99) fl Plt Count 40 L 54 L D 54 L (130-400) 10^3/cmm Neut % (Auto) 75.8 74.4 73.5 % Neut # (Auto) 4.77 5.73 6.15 (1.8-7.7) 10^3/uL BMP 04/09/21 04/10/21 04:58 03:56 Sodium 145 144 Potassium 3.1 L 3.6 Chloride 109 H 107 Carbon Dioxide 21 L 24 BUN 3 L 2 L Creatinine 0.4 L 0.3 L Glucose 83 159 H Calcium 7.7 L 7.1 L Liver Function 04/09/21 04/10/21 Range/Units 04:58 03:56 Total Bilirubin 0.9 1.2 (0.15-1.2) mg/dL AST 22 28 (0-32) U/L ALT 12 14 (0-33) U/L Alkaline Phosphatase 78 89 (35-105) IU/L Albumin 2.8 L 3.0 L (3.5-5.2) g/dL Coags 04/09/21 04/09/21 04/10/21 04:58 04:58 03:56 PT 19.50 H 17.40 H INR 1.61 H 1.38 H APTT 53.6 H D 47.3 H Fibrinogen 177 247 Fibrin Degrad Products Neg, <10 04/10/21 03:56 PT INR APTT Fibrinogen Fibrin Degrad Products Pos, 10-40 H Cardiac Studies: Echocardiogram 04/05/21
--- NOTE | 2021-04-10 09:25 | PC.NURSE ---
Consent obtained for debridement of wounds
[2021-04-10 11:20] LABS: Glucose Point of Care 121 mg/dL (70-110)
--- NOTE | 2021-04-10 11:29 | PC.SOCIAL ---
IMM Updated Updated pt's spouse on IMM. No questions voiced. Provided pt/spouse a copy. Initialed, dated, & timed copy in chart.
[2021-04-10] MEDS: FUROsemide 10 mg/mL SDV 2mL 20 MG IVP (11:38)
--- NOTE | 2021-04-10 11:52 | P.CONIM_ITS ---
Providers/Reason For Consult Consulting Physician/Specialty*: Dr. Chris Reason for Consult*: decubitus ulcers Attending Physician: Michael Chris MD Primary Care Provider: Geeta Anders History of Present Illness History of Present Illness Almita Mckinley is a 65 year old female who was admitted from the [place] [facility] with multiple comorbidities in septic shock. Patient had bilateral lower extremity decubitus ulcers and there was concern for cellulitis. She was started on Levo phed and IV antibiotics and subsequently weaned off pressors. In the meantime patient also developed thrombocytopenia which has remained stable for the last 48 hours at around 50 K. Review of Systems General: Reports: ROS unobtainable due to mental status Medications/Allergies Home Medications Medication Instructions Recorded Confirmed Last Taken Type biotin 10,000 mcg capsule 10,000 mcg PO DAILY 04/03/20 04/05/21 04/05/21 08:00 History calcium citrate 315 mg-vitamin D3 1 tab PO DAILY 04/03/20 04/05/21 04/05/21 08:00 History 5 mcg (200 unit) tablet (Calcium Citrate + D) coenzyme Q10 10 mg capsule (Co 10 mg PO TID 04/03/20 04/05/21 04/05/21 08:00 History Q-10) fluticasone propionate 50 1 spray INTRANASAL DAILY 04/03/20 04/05/21 04/05/21 08:00 History mcg/actuation nasal spray,suspension (Allergy Relief (fluticasone)) pantoprazole 40 mg tablet,delayed 40 mg PO DAILY 04/03/20 04/05/21 04/05/21 08 :00 History release simvastatin 40 mg tablet 40 mg PO DAILY 04/03/20 04/05/21 04/05/21 08:00 History albuterol sulfate 90 mcg/actuation 2 puff INHALATION QID PRN 01/18/21 04/05/21 Unknown History aerosol inhaler meclizine 25 mg tablet 25 mg PO TID PRN 01/18/21 04/05/21 Unknown History quetiapine 25 mg tablet (Seroquel) 12.5 mg PO BID 01/18/21 04/05/21 04/05/21 08:00 History venlafaxine 75 mg capsule,extended 75 mg PO DAILY 01/18/21 04/05/21 04/05/21 08:00 History release 24 hr clonazepam 1 mg tablet 0.5 mg PO BID PRN #0 tab 01/30/21 04/05/21 01/17/21 Rx ferrous sulfate 325 mg (65 mg 325 mg PO EVERY OTHER DAY #90 tab 01/30/21 04/05/21 04/05/21 08:00 Rx iron) tablet,delayed release thiamine mononitrate (vit B1) 100 100 mg PO DAILY #90 tab 01/30/21 04/05/21 04/05/21 08:00 Rx mg tablet (Vitamin B-1 (mononitrate)) fluticasone furoate 200 1 ea INHALATION DAILY 03/13/21 04/05/21 04/05/21 08:00 History mcg-vilanterol 25 mcg/dose inhalation powder (Breo Ellipta) Lactobacillus acidoph-L.bulgaricus 1 tab PO BID 30 Days #60 tab 03/21/21 04/05/21 04/05/21 08:00 Rx 1 million cell tablet furosemide 20 mg tablet 20 mg PO DAILY PRN #0 tab 03/21/21 04/05/21 03/12/21 Rx gabapentin 300 mg capsule 300 mg PO TID 30 Days #90 cap 03/21/21 04/05/21 04/05/21 08:00 Rx metoprolol tartrate 25 mg tablet 12.5 mg PO BID@0900,2100 #180 tab 03/21/21 04/05/21 04/05/21 08:00 Rx midodrine 5 mg tablet 10 mg PO TID 30 Days #180 tab 03/21/21 04/05/21 04/05/21 08:00 Rx sitagliptin 100 mg tablet (Januvia) 100 mg PO DAILY #30 tab 03/21/21 04/05/21 04/05/21 08:00 Rx multivitamin 1 tab PO DAILY 03/23/21 04/05/21 04/05/21 08:00 History doxycycline hyclate 100 mg capsule 100 mg PO BID 04/05/21 04/05/21 04/05/21 08:00 History flash glucose scanning reader 04/05/21 04/05/21 Unknown History (FreeStyle Swathi 14 Day [place]) Allergies Allergy/AdvReac Type Severity Reaction Status Date / Time No Known Allergies Allergy Verified 04/05/21 16:59 Current Medications Generic Name Dose Route Start Last Admin Trade Name Freq PRN Reason Stop Dose Admin Acetaminophen 650 mg 04/05/21 17:39 04/07/21 20:42 Acetaminophen 325 Mg Tablet PO 650 mg Q6H PRN Administration Mild/Mod Pain Or Temp >/= 101 Atorvastatin Calcium 20 mg 04/05/21 21:00 04/09/21 20:35 Atorvastatin 40 Mg Tablet PO 20 mg BEDTIME MACK Administration Clonazepam 0.5 mg 04/05/21 17:39 04/08/21 17:13 Clonazepam 0.5 Mg Tablet PO 0.5 mg BID PRN Administration Anxiety Ferrous Sulfate 325 mg 04/07/21 09:00 04/09/21 09:51 Ferrous Sulfate Ec 325 Mg Tablet PO 325 mg EVERY OTHER DAY MACK Administration Fluticasone Propionate 1 spray 04/06/21 09:00 04/10/21 08:03 Fluticasone Nasal [place] 16gm Btl INTRANASAL 1 applic DAILY MCAK Administration Gabapentin 300 mg 04/05/21 21:00 04/10/21 07:59 Gabapentin 300 Mg Capsule PO 300 mg TID MACK Administration Piperacillin Sod/Tazobactam 50 mls @ 12.5 mls/hr 04/05/21 18:30 04/10/21 10:16 Sod 3.375 gm/ Sodium Chloride IV 12.5 mls/hr Q8H MACK Administration Protocol Dextrose 500 mls @ 100 mls/hr 04/05/21 20:32 04/09/21 19:34 D5w IV Infused ONCE PRN Infusion Adult Acute Hypoglycemia Prot Protocol Norepinephrine Bitartrate 8 mg 508 mls @ 0 mls/hr 04/06/21 04:45 04/07/21 04:00 / Dextrose IV 0 mcg/min .Q0M MAKC 0 mls/hr Titration Protocol Per Protocol Lanolin 1 applic 04/06/21 08:20 04/06/21 11:22 Lanolin Oint 7 Gm TOPICAL 1 applic PRN PRN Administration DRYNESS Loperamide HCl 4 mg 04/08/21 07:56 04/09/21 09:49 Loperamide 2 Mg Capsule PO 4 mg QID PRN Administration diarrhea Midodrine 10 mg 04/05/21 21:00 04/10/21 07:59 Midodrine 5 Mg Tablet PO 10 mg TID MACK Administration Morphine Sulfate 2 mg 04/08/21 23:20 04/10/21 04:29 Morphine 4 Mg/Ml Sdv 1 Ml IVP 2 mg Q4H PRN Administration pain Pantoprazole Sodium 40 mg 04/06/21 09:00 04/10/21 07:[address] 40 Mg Tablet PO 40 mg DAILY MACK Administration Quetiapine Fumarate 12.5 mg 04/05/21 21:00 04/10/21 07:59 Quetiapine 25 Mg Tablet PO 12.5 mg BID@0900,2100 MACK Administration Venlafaxine HCl 75 mg 04/06/21 09:00 04/10/21 07:59 Venlafaxine Er (24hr) 75 Mg Capsule PO 75 mg DAILY MACK Administration PFSH Acute PFSH: Medical History Anxiety disorder Complete tear of right rotator cuff (~11/2020) COVID-19 DJD of right AC (acromioclavicular) joint GERD (gastroesophageal reflux disease) High anion gap metabolic acidosis History of alcohol dependence Hyperlipidemia Hypertension Hyperthyroidism Ileocolic intussusception Intertrochanteric fracture of left hip Macrocytic anemia Major depressive disorder Moderate protein-calorie malnutrition Refeeding syndrome Sarcoidosis diagnosis per available outside records, with patient stating onset in , details unknown, never put on specific treatment per report Type 2 diabetes mellitus UTI due to extended-spectrum beta lactamase (ESBL) producing Escherichia coli Vulvar carcinoma Surgical History History of carpal tunnel release History of gastric bypass Family History Other Cancer Social History Smoking and tobacco status: former smoker Alcohol intake: former Number of children: 0 Vitals/I&O/Wt Last Vital Signs Temp 98.5 F 04/10/21 11:48 Pulse 119 H 04/10/21 11:48 Resp 14 04/10/21 11:48 BP 150/91 04/10/21 11:48 Pulse Ox 91 04/10/21 11:48 04/09/21 04/10/21 04/10/21 22:59 06:59 14:59 Intake Total 745.833 / 795.833 300 / 300 Output Total 900 / 1900 1000 / 1900 Balance -154.167 / -1104.167 -1000 / -1104.167 300 / 300 Weight last 48 hrs Weight 156 lb Weight 156 lb Physical Exam Narrative: HEENT: Normocephalic Eye: Sclera /conjunctiva normal Abdomen: Soft to palpation Neurological: Awake Skin: Intact, multiple unstageable decubitus ulcers involving the back, sacrum and bilateral lower extremities Data : 04/10/21 07:55 04/10/21 03:56 A&P Assessment and plan (1) Decubitus ulcer: 60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 Plan for excisional debridement of bilateral lower extremity and sacral ulcers under anesthesia. Status: Acute (2) Thrombocytopenia: Platelet transfusion at the time of surgery Status: Acute Coding Level of Care Code Acute [facility] [employer] [facility] for [facility] Diagnoses Decubitus ulcer L89.90 Thrombocytopenia D69.6
--- NOTE | 2021-04-10 11:59 | PC.NURSE ---
PT taken to surgery per OR staff. Platelets infusing per orders. VSS
--- NOTE | 2021-04-10 12:37 | P.PN_ITS ---
Subjective Subjective: Patient was seen and examined this morning, she was little drowsy today, platelet count has risen today to 54,000, continue to be off Levophed, continue to maintain good map, continue to have good urine output with Lasix, anasarca is slowly improving. Currently the plan is to transfuse her with 2 bags of platelets and proceed with debridement. Medications: Medication Review Details: Generic Name Dose Route Start Last Admin Trade Name Woodrow PRN Reason Stop Dose Admin Atorvastatin Calci um 20 mg 04/05/21 21:00 04/05/21 22:02 Atorvastatin 40 Mg Tablet PO 20 mg BEDTIME MACK Administration Fluticasone Propio wm 1 spray 04/06/21 09:00 04/06/21 09:05 Fluticasone Nasa l [place] 16gm Btl INTRANASAL 1 applic DAILY MACK Administration Gabapentin 300 mg 04/05/21 21:00 04/06/21 09:04 Gabapentin 300 M g Capsule PO 300 mg TID MACK Administration Heparin Sodium (Po rcine) 5,000 unit 04/05/21 20:00 04/06/21 09:08 Heparin 5,000 Un it/Ml Inj 1 Ml SUBCUT 5,000 unit Q12H MACK Administration Piperacillin Sod/T azobactam 50 mls @ 12.5 mls /hr 04/05/21 18:30 04/06/21 11:18 Sod 3.375 gm/ So dium Chloride IV 12.5 mls/hr Q8H MACK Administration Protocol Vancomycin HCl 1,0 00 mg/ 250 mls @ 250 mls /hr 04/06/21 03:45 04/06/21 05:37 Sodium Chloride IV Infused Q12H MACK Infusion Protocol Potassium Chloride /Sodium Chloride 40 meq in 1,000 m ls @ 50 mls/hr 04/05/21 17:45 04/06/21 15:26 Sodium Chlor 0.9 % + Kcl 40 Meq IV 04/07/21 09:44 50 mls/hr .Q20H MACK Administration Albumin Human 25 gm in 100 mls @ 60 mls/hr 04/05/21 18:45 04/06/21 11:19 Albumin IV 04/06/21 23:59 25 mls/hr Q8H MACK Administration Norepinephrine Bit artrate 8 mg 508 mls @ 0 mls/h r 04/06/21 04:45 04/06/21 05:51 / Dextrose IV 3 mcg/min .Q0M MACK 11.43 mls/hr Titration Protocol Per Protocol Insulin Human Lisp ro 0 unit 04/05/21 20:32 04/06/21 09:08 Insulin Lispro 1 00 Unit/1 Ml SUBCUT 1 unit WM&BEDTIME MACK Administration Protocol Lanolin 1 applic 04/06/21 08:20 04/06/21 11:22 Lanolin Oint 7 G m TOPICAL 1 applic PRN PRN Administration DRYNESS Midodrine 10 mg 04/05/21 21:00 04/06/21 09:04 Midodrine 5 Mg T ablet PO 10 mg TID MACK Administration Pantoprazole Sodiu m 40 mg 04/06/21 09:00 04/06/21 09:[address] 40 Mg Tablet PO 40 mg DAILY MACK Administration Quetiapine Fumarat e 12.5 mg 04/05/21 21:00 04/06/21 09:03 Quetiapine 25 Mg Tablet PO 12.5 mg BID@0900,2100 MACK Administration Venlafaxine HCl 75 mg 04/06/21 09:00 04/06/21 09:04 Venlafaxine Er ( 24hr) 75 Mg Capsul e PO 75 mg DAILY MACK Administration Vitals/I&O/Wt Last Vital Signs Temp 98.5 F 04/10/21 11:48 Pulse 119 H 04/10/21 11:48 Resp 14 04/10/21 11:48 BP 150/91 04/10/21 11:48 Pulse Ox 91 04/10/21 11:48 04/09/21 04/10/21 04/10/21 22:59 06:59 14:59 Intake Total 745.833 / 795.833 300 / 300 Output Total 900 / 900 1000 / 1900 Balance -154.167 / -104.167 -1000 / -1104.167 300 / 300 Weight last 48 hrs Weight 70.76 kg Weight 70.76 kg Physical Exam Narrative: Alert and awake HENMT: COMMON NORMALS: normocephalic and atraumatic HEAD & SCALP: normocephalic and atraumatic Eye: COMMON NORMALS: no scleral icterus GENERAL EYE: appearance normal, both eyes and all related structures Chest: COMMONS NORMALS: normal inspection of the chest and normal palpation of entire chest wall CHEST: Yes Symmetrical chest wall rise Resp: COMMON NORMALS: normal respiratory effort EFFORT & INSPECTION: Yes symmetric chest movement OTHER: Diminished air entry at RT lower lung field Cardio: COMMON NORMALS: regular rate, regular rhythm, S1 normal heart sound present, S2 normal heart sound present, No gallops present (Cardio), No murmurs present (Cardio), No rub (Cardio) and Peripheral pulses 2+ throughout RATE: regular rate RHYTHM: regular rhythm HEART SOUNDS: S1 normal heart sound present and S2 normal heart sound present PERIPHERAL PULSES: Peripheral pulses 2+ throughout GI: COMMON NORMALS: Normal to inspection, nondistended, normoactive bowel sounds present, Soft to palpation, non-tender, No hepatosplenomegaly present and no masses AUSCULTATION: Yes normoactive bowel sounds PALPATION: Yes Soft to palpation and Yes No hepatosplenomegaly present RECTAL EXAM: deferred Extremity: COMMON NORMALS: no clubbing, cyanosis or edema and no pedal edema OTHER: b/l feet 2+ pitting edema, bilateral upper extremity swelling. Skin: NARRATIVE SKIN EXAM: Multiple pressure tissue injury ulcers. Unstageable with black adherent eschar. Data : 04/10/21 07:55 04/10/21 03:56 A&P Assessment and plan (1) Sepsis: Status: Acute (2) Hypotension: Status: Acute (3) Pressure injury, unstageable, with eschar: Status: Acute (4) Type 2 diabetes mellitus: Status: Acute Qualifiers: Diabetes mellitus complication detail: with unspecified neuropathy Diabetes mellitus complication status: with neurologic complications Diabetes mellitus fci insulin use: without fci use Qualified Code(s): E11.40 - Type 2 diabetes mellitus with diabetic neuropathy, unspecified (5) Lactic acidosis: Status: Acute (6) Moderate protein-calorie malnutrition: Status: Acute (7) Physical deconditioning: Status: Acute (8) Anasarca: Status: Acute (9) Hypokalemia: Status: Acute (10) Refeeding syndrome: Status: Chronic Plan Assessment: Sepsis likely secondary to extensive wound in the lower extremity as well as on the back, UTI Hypothermic, hypotensive, currently requiring Levophed, recent history of ESBL E. coli, Adrenal insufficiency was ruled out during last admission. Blood culture Urine culture:GNR: ESBL E. coli Lactic acid:6.1 Repeat lactic acid:2.5 stool C. difficile: Negative Follow stool : Stool enteric parasitic , bacterial panel by PCR negative, stool lactoferrin negative MRSA nares positive: On mupirocin Blood culture: NTD Procalcitonin:0.21 2D echo: Normal LV systolic function with grade 2 diastolic dysfunction.? Ejection fraction 60%. No gross valvular abnormality noted. CT abdomen and pelvis with contrast:Moderate right and small left pleural effusion.Bibasilar atelectasis versus infiltrate. Diffuse nonspecific subcutaneous edema about the abdomen and pelvis. Subcutaneous emphysema over the right posterior pelvis, nonspecific. XR chest?: Small right pleural effusion and patchy largely right lower lobe atelectasis versus infiltrate. Currently on Zosyn., Vancomycin has been discontinued Continue Levophed. Will attempt to titrate off Levophed and put her back on midodrine. Continue Wound care. Surgery on board #DIC : Likely secondary to sepsis PT :16.80 INR : 1.33 , D-Dimer: 1.46 , serum fibrinogen: 150 , FDP : Positive. Continue to monitor. Will manage based on the presentation. Thrombocytopenia: Admission platelet count: 28482: Low clinical suspicion for HIT: 4 T score: Low (will follow HIT panel ) : Given new superficial vein thrombosis. Can be started on Eliquis if needed. Low clinical suspicion for TTP: Plasmic score: Low: PBS reviewed: No Schistocytes , no clear hemolysis seen (we will hold off on sending Deonte TS 13 assay) :LDH : 228, haptoglobin: 95 , total bilirubin normal DIC panel: PT , PTT serum fibrinogen, D-Dimer, FDP, ( ISTH criteria) : No active oozing from any I.V site. Continue to monitor CBC. Currently no active signs of bleeding , petechiae , purpura. Continue Lovenox 40 subcu daily. Possibly secondary to sepsis, chronic illness, cannot conclusively rule out drug-induced. Vancomycin has been discontinued We will continue with aspirin for now. Pressure injury: Chronic. Unstageable with eschar. Appreciate surgery recommendation Continue with Betadine paint twice daily as per surgical recommendation on recent hospitalization. Due for debridement today. Frequent turning in bed. Nutrition optimization. Appropriate mattress. # Superficial venous thrombosis: right cephalic vein distally extending into the antecubital fossa. Was on aspirin 81 mg daily and lovenox has been kept on hold due to severe thrombocytopenia. Anasarca: Most likely from PEM and hypoalbuminemia. Chronically ill patient. 2D echo: Protein supplementation. DM2 : SSI, FSG , regular diet. Hypokalemia: Most likely secondary to to aggressive diuresis at shelter. Replete. H/O refeeding syndrome: Monitor electrolytes (magnesium , phosphorus , potassium ) . Replete accordingly Moderate protein energy malnutrition: Regular diet with protein supplementation. Physical deconditioning. Dietitian consult. DVT prophylaxis. On Lovenox Protonix for PUD prophylaxis. Attestations Medical Necessity Statement*: Patient is to the hospital for management of sepsis , DIC Coding Level of Care Code Acute Balance Truer for g Fwd Exam Detailed Diagnoses Sepsis A41.9 Hypotension I95.9 Pressure injury, unstageable, with eschar L89.95 Type 2 diabetes mellitus E11.40 Diabetes mellitus complication detail: with unspecified neuropathy Diabetes mellitus complication status: with neurologic complications Diabetes mellitus middle or intermediate school principal insulin use: without middle or intermediate school principal use Lactic acidosis E87.2 Moderate protein-calorie malnutrition E44.0 Physical deconditioning R53.81 Anasarca R60.1 Hypokalemia E87.6 Refeeding syndrome E87.8
--- NOTE | 2021-04-10 13:33 | PC.NURSE ---
1326 Pt returned to room per OR staff, pt lathargic but able to answer questions. VSS. Platelets infusing. New PIV placed per surgery, 22g to L wrist. PIV to inside of BRIGETTE came out during surgery. Dressing to BLE noted to have some blood seeping through. OR staff reports that has been occurring since surgery. Will monitor.
--- NOTE | 2021-04-10 14:01 | ANE.PACU2 ---
Inpatient post-anesthesia follow up: Airway intact: Yes Vital signs: Temperature 97.0 F Pulse Rate 108 Respiratory Rate 12 Blood Pressure 115/80 Pulse Oximetry 89 Oxygen Delivery Me thod Room Air Oxygen Flow Rate Fraction of Inspir ed Oxygen Hydration adequate: Yes Nausea and vomiting: No Pain level: 2 Mental status: Baseline
--- NOTE | 2021-04-10 14:43 | PC.NURSE ---
Platelets transfused without issues. VSS. Pt repositioned and dressings to LLE and RUE changed d/t blood seepage. Tolerated well. Will monitor.
[2021-04-10 16:57] LABS: Glucose Point of Care 135 mg/dL (70-110)
--- NOTE | 2021-04-10 18:06 | PC.NURSE ---
Shift Note Frequent safety and comfort rounds continue. Orders and/or nursing care completed as indicated. Patient monitored for response to intervention and treatment(s). Education provided includes treatment plan, medications, pain management. Pt and verbalize understanding. Pt resting in bed eating dinner at this time. Able to feed self. No issues noted. Stool sample sent to lab. Dressings in place to sacrum. BLE and RUE. PIV x2 in place. Will continue to monitor.
[2021-04-10] MEDS: CLONazepam 0.5 mg Tablet PO (18:35)
[2021-04-10] MEDS: atorvastatin 40 mg Tablet 20 MG PO (20:34)
[2021-04-10] MEDS: acetaminophen 325 mg Tablet 650 MG PO (20:51)
[2021-04-10 21:04] LABS: Glucose Point of Care 256 mg/dL (70-110)
--- NOTE | 2021-04-10 21:05 | PC.NURSE ---
Insulin Patient's blood sugar [address] Osborne called and telephone order received to begin low dose insulin sliding scale per protocol ACHS. Orders carried out per APR.
[2021-04-10] MEDS: insulin lispro 100 unit/1 mL SUBCUT (21:22)
[2021-04-11] VITALS (56 sets, daily range): BP systolic 106–153; BP diastolic 63–99; PULSE 69–132; RESP 1–20; TEMP 35.8–37; O2SAT 85–100; BMI 26.0
[2021-04-11 00:19] LABS: Glucose Point of Care 246 mg/dL (70-110)
[2021-04-11] MEDS: piperacillin-tazobactam 3.375 GM in sodium chloride 0.9% (plus) 50 ML IV ×3 (02:02→17:33)
[2021-04-11 04:36] LABS: Basophils % 0.2 %; Hematocrit 25.2 % (37.0-47.0); Hemoglobin 7.6 g/dL (11.5-15.3); Lymphocytes # 1.1 10^3/uL (0.8-4.8); Lymphocytes % 11.6 %; Mean Corpuscular HGB Conc 30.2 g/dL (30.0-36.0); Mean Corpuscular Hemoglobin 32.6 pg (28.0-34.0); Mean Corpuscular Volume 108.2 fl (81-99); Monocytes # 0.2 10^3/uL (0.2-0.9); Monocytes % 2.2 %; Neutrophils % 85.3 %; Nucleated Red Blood Cells % 0 %; Platelet Count 197 10^3/cmm (130-400); Red Blood Count 2.33 10^6/uL (4.1-5.3); Red Cell Distribution Width 19.1 % (12.1-15.1); White Blood Count 9.9 10^3/uL (4.0-10.0)
[2021-04-11 04:48] LABS: Blood Urea Nitrogen 2 mg/dL (8-23); Carbon Dioxide 26 mmol/L (22-29); Chloride 102 mmol/L (98-107); Creatinine Clr Calc Pharmacy 66.1229; Glomerular Filtration Rate 223.3 mL/min (90-130); Glucose 210 mg/dL (65-115); Osmolality Calculated 290 mOsm/kg (285-295); Sodium 139 mmol/L (136-145)
[2021-04-11 04:52] LABS: Anion Gap 14.8 (5-19); Potassium 3.8 mmol/L (3.5-5.1)
[2021-04-11 06:12] LABS: Glucose Point of Care 212 mg/dL (70-110)
[2021-04-11] MEDS: insulin lispro 100 unit/1 mL SUBCUT ×4 (06:13→20:33)
[2021-04-11] MEDS: midodrine 5 mg TABLET 10 MG PO ×2 (07:48→14:04)
[2021-04-11] MEDS: quetiapine 25 mg Tablet 12.5 MG PO ×2 (07:49→20:13)
[2021-04-11] MEDS: gabapentin 300 mg Capsule PO ×3 (07:49→20:13)
[2021-04-11] MEDS: venlafaxine ER (24HR) 75 mg Capsule PO (07:49)
[2021-04-11] MEDS: pantoprazole DR 40 mg Tablet PO (07:49)
[2021-04-11] MEDS: ferrous sulfate EC 325 mg Tablet PO (07:50)
[2021-04-11] MEDS: fluticasone nasal spray 16gm Btl 1 SPRAY INTRANASAL (07:50)
--- NOTE | 2021-04-11 08:29 | PC.NURSE ---
Pt suddenly became tachycardic, notified. Orders to transfuse one unit PRBC's given. Pt repositioned. Dressings on sacrum changed and secured in place. Will monitor.
[2021-04-11] MEDS: loperamide 2 mg Capsule 4 MG PO (08:57)
--- NOTE | 2021-04-11 10:37 | P.PN_ITS ---
Subjective Subjective: Patient was seen and examined this morning, status post debridement yesterday, status post 2 bags platelet Hemoglobin has dropped to 7.6, from 8.8 yesterday, current plan is to transfuse her 1 unit PRBC today. currently platelet count is 197, slightly tachycardic today, denies any significant pain, continue maintaining good map, continue to be afebrile, anasarca is improving.Her other vitals and labs have been reviewed. Medications: Medication Review Details: Generic Name Dose Route Start Last Admin Trade Name Woodrow PRN Reason Stop Dose Admin Atorvastatin Calci um 20 mg 04/05/21 21:00 04/05/21 22:02 Atorvastatin 40 Mg Tablet PO 20 mg BEDTIME MACK Administration Fluticasone Propio wm 1 spray 04/06/21 09:00 04/06/21 09:05 Fluticasone Nasa l [place] 16gm Btl INTRANASAL 1 applic DAILY MACK Administration Gabapentin 300 mg 04/05/21 21:00 04/06/21 09:04 Gabapentin 300 M g Capsule PO 300 mg TID MACK Administration Heparin Sodium (Po rcine) 5,000 unit 04/05/21 20:00 04/06/21 09:08 Heparin 5,000 Un it/Ml Inj 1 Ml SUBCUT 5,000 unit Q12H MACK Administration Piperacillin Sod/T azobactam 50 mls @ 12.5 mls /hr 04/05/21 18:30 04/06/21 11:18 Sod 3.375 gm/ So dium Chloride IV 12.5 mls/hr Q8H MACK Administration Protocol Vancomycin HCl 1,0 00 mg/ 250 mls @ 250 mls /hr 04/06/21 03:45 04/06/21 05:37 Sodium Chloride IV Infused Q12H MACK Infusion Protocol Potassium Chloride /Sodium Chloride 40 meq in 1,000 m ls @ 50 mls/hr 04/05/21 17:45 04/06/21 15:26 Sodium Chlor 0.9 % + Kcl 40 Meq IV 04/07/21 09:44 50 mls/hr .Q20H MACK Administration Albumin Human 25 gm in 100 mls @ 60 mls/hr 04/05/21 18:45 04/06/21 11:19 Albumin IV 04/06/21 23:59 25 mls/hr Q8H MACK Administration Norepinephrine Bit artrate 8 mg 508 mls @ 0 mls/h r 04/06/21 04:45 04/06/21 05:51 / Dextrose IV 3 mcg/min .Q0M MACK 11.43 mls/hr Titration Protocol Per Protocol Insulin Human Lisp ro 0 unit 04/05/21 20:32 04/06/21 09:08 Insulin Lispro 1 00 Unit/1 Ml SUBCUT 1 unit WM&BEDTIME MACK Administration Protocol Lanolin 1 applic 04/06/21 08:20 04/06/21 11:22 Lanolin Oint 7 G m TOPICAL 1 applic PRN PRN Administration DRYNESS Midodrine 10 mg 04/05/21 21:00 04/06/21 09:04 Midodrine 5 Mg T ablet PO 10 mg TID MACK Administration Pantoprazole Sodiu m 40 mg 04/06/21 09:00 04/06/21 09:[address] 40 Mg Tablet PO 40 mg DAILY MACK Administration Quetiapine Fumarat e 12.5 mg 04/05/21 21:00 04/06/21 09:03 Quetiapine 25 Mg Tablet PO 12.5 mg BID@0900,2100 MACK Administration Venlafaxine HCl 75 mg 04/06/21 09:00 04/06/21 09:04 Venlafaxine Er ( 24hr) 75 Mg Capsul e PO 75 mg DAILY MACK Administration Vitals/I&O/Wt Last Vital Signs Temp 98.2 F 04/11/21 08:00 Pulse 107 H 04/11/21 10:00 Resp 16 04/11/21 10:00 BP 110/78 04/11/21 10:00 Pulse Ox 89 L 04/11/21 10:00 04/10/21 04/11/21 04/11/21 22:59 06:59 14:59 Intake Total 1020.125 / 1899.000 50 / 1949.000 240 / 240 Output Total / 1974 350 / 2325 Balance 145.125 / -76.000 -300 / -376.000 240 / 240 Weight last 48 hrs Weight 66.723 kg Weight 70.76 kg Physical Exam Narrative: Alert and awake HENMT: COMMON NORMALS: normocephalic and atraumatic HEAD & SCALP: normocephalic and atraumatic Eye: COMMON NORMALS: no scleral icterus GENERAL EYE: appearance normal, both eyes and all related structures Chest: COMMONS NORMALS: normal inspection of the chest and normal palpation of entire chest wall CHEST: Yes Symmetrical chest wall rise Resp: COMMON NORMALS: normal respiratory effort EFFORT & INSPECTION: Yes symmetric chest movement OTHER: Diminished air entry at RT lower lung field Cardio: COMMON NORMALS: regular rate, regular rhythm, S1 normal heart sound present, S2 normal heart sound present, No gallops present (Cardio), No murmurs present (Cardio), No rub (Cardio) and Peripheral pulses 2+ throughout RATE: regular rate RHYTHM: regular rhythm HEART SOUNDS: S1 normal heart sound present and S2 normal heart sound present PERIPHERAL PULSES: Peripheral pulses 2+ throughout GI: COMMON NORMALS: Normal to inspection, nondistended, normoactive bowel sounds present, Soft to palpation, non-tender, No hepatosplenomegaly present and no masses AUSCULTATION: Yes normoactive bowel sounds PALPATION: Yes Soft to palpation and Yes No hepatosplenomegaly present RECTAL EXAM: deferred Extremity: COMMON NORMALS: no clubbing, cyanosis or edema and no pedal edema OTHER: b/l feet 2+ pitting edema, bilateral upper extremity swelling. Skin: NARRATIVE SKIN EXAM: Multiple pressure tissue injury ulcers. Unstageable with black adherent eschar. Urinary Catheter Management: [place]: Cath Placed During This Visit: no Reason for Continuing Indwelling Catheter: Accurate Measurement of Urinary Output in Critically Ill Patients Data : 04/11/21 04:10 04/11/21 04:10 Micro: Microbiology 04/05/21 15:41 Blood Culture - Final Blood NO GROWTH AFTER 5 DAYS 04/05/21 15:30 Blood Culture - Final Blood NO GROWTH AFTER 5 DAYS A&P Assessment and plan (1) Sepsis: Status: Acute (2) Hypotension: Status: Acute (3) Pressure injury, unstageable, with eschar: Status: Acute (4) Type 2 diabetes mellitus: Status: Acute Qualifiers: Diabetes mellitus complication detail: with unspecified neuropathy Diabetes mellitus complication status: with neurologic complications Diabetes mellitus custodial insulin use: without custodial use Qualified Code(s): E11.40 - Type 2 diabetes mellitus with diabetic neuropathy, unspecified (5) Lactic acidosis: Status: Acute (6) Moderate protein-calorie malnutrition: Status: Acute (7) Physical deconditioning: Status: Acute (8) Anasarca: Status: Acute (9) Hypokalemia: Status: Acute (10) Refeeding syndrome: Status: Chronic Plan Assessment: Sepsis likely secondary to extensive wound in the lower extremity as well as on the back, UTI Hypothermic, hypotensive, currently requiring Levophed, recent history of ESBL E. coli, Adrenal insufficiency was ruled out during last admission. Blood culture Urine culture:GNR: ESBL E. coli Lactic acid:6.1 Repeat lactic acid:2.5 stool C. difficile: Negative Follow stool : Stool enteric parasitic , bacterial panel by PCR negative, stool lactoferrin negative MRSA nares positive: On mupirocin Blood culture: NTD Procalcitonin:0.21 2D echo: Normal LV systolic function with grade 2 diastolic dysfunction.? Ejection fraction 60%. No gross valvular abnormality noted. CT abdomen and pelvis with contrast:Moderate right and small left pleural effusion.Bibasilar atelectasis versus infiltrate. Diffuse nonspecific subcutaneous edema about the abdomen and pelvis. Subcutaneous emphysema over the right posterior pelvis, nonspecific. XR chest?: Small right pleural effusion and patchy largely right lower lobe atelectasis versus infiltrate. Currently on Zosyn., Vancomycin has been discontinued Continue Levophed. Will attempt to titrate off Levophed and put her back on midodrine. Continue Wound care. Surgery on board: S/p debridement #DIC : Likely secondary to sepsis PT :16.80 INR : 1.33 , D-Dimer: 1.46 , serum fibrinogen: 150 , FDP : Positive. Continue to monitor. Will manage based on the presentation. Thrombocytopenia: Admission platelet count: 13962: Low clinical suspicion for HIT: 4 T score: Low (will follow HIT panel ) : Given new superficial vein thrombosis. Can be started on Eliquis if needed. Low clinical suspicion for TTP: Plasmic score: Low: PBS reviewed: No Schistocytes , no clear hemolysis seen (we will hold off on sending Deonte TS 13 assay) :LDH : 228, haptoglobin: 95 , total bilirubin normal DIC panel: PT , PTT serum fibrinogen, D-Dimer, FDP, ( ISTH criteria) : No active oozing from any I.V site. Continue to monitor CBC. Currently no active signs of bleeding , petechiae , purpura. Continue Lovenox 40 subcu daily. Possibly secondary to sepsis, chronic illness, cannot conclusively rule out drug-induced. Vancomycin has been discontinued We will continue with aspirin for now. Pressure injury: Chronic. Unstageable with eschar. Appreciate surgery recommendation Continue with Betadine paint twice daily as per surgical recommendation on recent hospitalization. Due for debridement today. Frequent turning in bed. Nutrition optimization. Appropriate mattress. #Anemia: Likely ACD: Continue to monitor H&H Transfuse to maintain's Hb greater than 7 # Superficial venous thrombosis: right cephalic vein distally extending into the antecubital fossa. Was on aspirin 81 mg daily and lovenox has been kept on hold due to severe thrombocytopenia. Anasarca: Most likely from PEM and hypoalbuminemia. Chronically ill patient. 2D echo: Protein supplementation. DM2 : SSI, FSG , regular diet. Hypokalemia: Most likely secondary to to aggressive diuresis at alf. Replete. H/O refeeding syndrome: Monitor electrolytes (magnesium , phosphorus , potassium ) . Replete accordingly Moderate protein energy malnutrition: Regular diet with protein supplementation. Physical deconditioning. Dietitian consult. DVT prophylaxis. On Lovenox Protonix for PUD prophylaxis. Attestations Medical Necessity Statement*: Patient is still in hospital for management of sepsis, DIC , thrombocytopenia , anemia. Coding Level of Care Code Acute [facility]abbitter for [facility] Fwd Exam Detailed Diagnoses Sepsis A41.9 Hypotension I95.9 Pressure injury, unstageable, with eschar L89.95 Type 2 diabetes mellitus E11.40 Diabetes mellitus complication detail: with unspecified neuropathy Diabetes mellitus complication status: with neurologic complications Diabetes mellitus custodial insulin use: without ad terminal makeup operator use Lactic acidosis E87.2 Moderate protein-calorie malnutrition E44.0 Physical deconditioning R53.81 Anasarca R60.1 Hypokalemia E87.6 Refeeding syndrome E87.8
--- NOTE | 2021-04-11 10:40 | PC.CHAP ---
Pastoral Care Encounter/Spiritual Assessment Type of Contact [] Declined life skills specialist visit [] Patient/Family/Request visit [] Outpatient visit [] Follow-up visit [] Physician referral [] Code/Alert [x] Routine visit [] Staff referral [] Actively dying [] Patient sleeping [] Family support [] [] Out of room [] Palliative care [] [] Receiving care in room [] Pre-surgical visit [] Trauma [] Long length of stay [x] ICU visit [] Other: Relational/Emotional Strength [] Patient feels connected with others/family/visitors/staff [] Distress [] Loneliness/isolation [] Abandonment Spirituality of Patient [] Person of [place] [] Attends Latter-[employer] of their [place] [] Believes in Prayer [] Reads Bible or Jain materials [] There are Spiritual issues to be addressed 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 Interventions [x] Prayer [x] Active listening [x] Non-anxious presence [x] Spiritual/emotional support [] Crisis/trauma care [] Spiritual counseling [] Bereavement support [] Provided bereavement packet [] Provided Bible/devotional materials [] Provided toy/stuffed animal, coloring book to patient or family member [] Provided Communion [] Anointing/[place] [] Salvation [x] Completed spiritual assessment [] Other: Impact on Illness or Injury [] Angry [] Fearful [] Anxious [] Often cries [] Exhaustion [] Unable to work [] Unable to attend advent [] Unable to walk/stand [] Unable to read [] Unable to drive [] Unable to eat/drink [] Unable to sleep [] Unable to be with family [] Patient intubated [] Other: Summary rested pretty good... Time spent with patient 5 min
--- NOTE | 2021-04-11 11:06 | PC.NURSE ---
Blood transfusion started per protocol. Pt tolerating well. Will monitor.
[2021-04-11 11:30] LABS: Glucose Point of Care 248 mg/dL (70-110)
--- NOTE | 2021-04-11 11:47 | P.OP_ITS ---
Operative Report Date of procedure: April 10, 2021 Pre-op diagnosis: 1. Multiple decubitus ulcers on bilateral lower extremity and sacrum 2. Thrombocytopenia Post-op diagnosis: 1. Sacral decubitus ulcer measuring 2 x 1 x 1 cm 2. Sacral decubitus ulcer measuring 6 x 4 x 2 cm 3. Sacral decubitus ulcer measuring 1.5 x 2 x 1 cm 4. Left heel ulcer measuring 5 x 3 x 1 cm 5. Left calf ulcer measuring 5 x 3 x 1 cm 6. Left calf ulcer measuring 6.5 x 5 x 0.5 cm 7. Right heel ulcer measuring 2 x 1 x 0.5 cm 8. Right calf ulcer measuring 3 x 1 x 0.5 cm 9. Right calf ulcer measuring 0.5 x 0.5 x 0.5 cm Procedure done: 1. Sacral decubitus ulcer measuring 2 x 1 x 1 cm 2. Sacral decubitus ulcer measuring 6 x 4 x 2 cm 3. Sacral decubitus ulcer measuring 1.5 x 2 x 1 cm 4. Left heel ulcer measuring 5 x 3 x 1 cm 5. Left calf ulcer measuring 5 x 3 x 1 cm 6. Left calf ulcer measuring 6.5 x 5 x 0.5 cm 7. Right heel ulcer measuring 2 x 1 x 0.5 cm 8. Right calf ulcer measuring 3 x 1 x 0.5 cm 9. Right calf ulcer measuring 0.5 x 0.5 x 0.5 cm Pathology: none sent Surgeon: Jose Roberto Cuellar Anesthesia: MAC Estimated blood loss (mL): 50 Condition: stable Disposition: PACU Procedure: The patient was taken to the operating room and placed in left lateral position under MAC. She is on therapeutic IV antibiotics. The bilateral lower extremity and sacral area was prepped and draped in a sterile manner. Excisional debridement was performed using electrocautery due to patient's thrombocytopenia. She was receiving platelets during the procedure. 1. Using electrocautery excisional debridement of necrotic skin and subcutaneous tissue was performed until there was punctate bleeding noted resulting in a wound measuring 2 x 1 x 1 cm on the sacrum. Hemostasis ensured with cautery and wound was packed with piece of Surgicel and Kerlix gauze. 2. Using electrocautery excisional debridement of necrotic skin and subcutaneous tissue was performed until there was punctate bleeding noted r esulting in a wound measuring 6 x 4 x 2 cm on the sacrum. Hemostasis ensured with cautery and wound was packed with piece of Surgicel and Kerlix gauze. 3. Using electrocautery excisional debridement of necrotic skin and subcutaneous tissue was performed until there was punctate bleeding noted resulting in a wound measuring 1.5 x 2 x 1 cm on the sacrum. Hemostasis ensured with cautery and wound was packed with piece of Surgicel and Kerlix gauze. 4. Using electrocautery excisional debridement of necrotic skin and subcutaneous tissue was performed until there was punctate bleeding noted res ulting in a wound measuring 5 x 3 x 1 cm on the left heel. Hemostasis ensured with cautery and wound was packed with piece of Surgicel and Kerlix gauze. 5. Using electrocautery excisional debridement of necrotic skin and subcutaneous tissue was performed until there was punctate bleeding noted resulting in a wound measuring 5 x 3 x 1 cm on the left calf. Hemostasis ensured with cautery and wound was packed with piece of Surgicel and Kerlix gauze. 6. Using electrocautery excisional debridement of necrotic skin and subcutaneous tissue was performed until there was punctate bleeding noted r esulting in a wound measuring 6.5 x 5 x 0.5 cm on the left calf. Hemostasis ensured with cautery and wound was packed with piece of Surgicel and Kerlix gauze. 7. Using electrocautery excisional debridement of necrotic skin and subcutaneous tissue was performed until there was punctate bleeding noted resulting in a wound measuring 2 x 1 x 0.5 cm on the right heel. Hemostasis ensured with cautery and wound was packed with piece of Surgicel and Kerlix gauze. 8. Using electrocautery excisional debridement of necrotic skin and subcutaneous tissue was performed until there was punctate bleeding noted resulting in a wound measuring 3 x 1 x 0.5 cm on the right calf. Hemostasis ensured with cautery and wound was packed with piece of Surgicel and Kerlix gauze. 9. Using electrocautery excisional debridement of necrotic skin and subcutaneous tissue was performed until there was punctate bleeding noted resulting in a wound measuring 0.5 x 0.5 x 0.5 cm on the right calf. Hemostasis ensured with cautery and wound was packed with piece of Surgicel and Kerlix gauze.
[2021-04-11] MEDS: sodium chloride 0.9% 250 ML 125 ML IV (12:50)
--- NOTE | 2021-04-11 13:58 | PC.NURSE ---
Wound care performed per orders. Blood transfusion completed. Tolerated well. HOB elevated, CLWR.
[2021-04-11] MEDS: FUROsemide 10 mg/mL SDV 2mL 20 MG IVP ×2 (14:04→18:02)
[2021-04-11 17:07] LABS: Glucose Point of Care 289 mg/dL (70-110)
--- NOTE | 2021-04-11 18:19 | PC.NURSE ---
Shift Note Frequent safety and comfort rounds continue. Orders and/or nursing care completed as indicated. Patient monitored for response to intervention and treatment(s). Education provided includes treatment plan, medications, blood administration and fluid status. Pt received one unit PRBC's and lasix 20mgIVP x 2 today. Pt had some slight confusion this AM. Much improved throughout the day. VSS. No other issues noted. Will continue to monitor.
[2021-04-11] MEDS: acetaminophen 325 mg Tablet 650 MG PO (19:10)
[2021-04-11] MEDS: CLONazepam 0.5 mg Tablet PO (19:12)
--- NOTE | 2021-04-11 19:15 | PC.NURSE ---
Clonazepam Patient stated she was having alot of anxiety then began to cry lightly. Anxiety medication, clonazepam, administered per APR.
[2021-04-11] MEDS: atorvastatin 40 mg Tablet 20 MG PO (20:12)
[2021-04-11] MEDS: morphine 4 mg/mL SDV 1 mL 2 MG IVP (20:23)
[2021-04-11 20:57] LABS: Heparin-Induced Platelet AB Negative (Negative)
[2021-04-11 21:20] LABS: Glucose Point of Care 278 mg/dL (70-110)
[2021-04-12] VITALS (53 sets, daily range): BP systolic 105–158; BP diastolic 69–112; PULSE 89–136; RESP 1–21; TEMP 36.7–37.6; O2SAT 86–100; BMI 25.1
[2021-04-12] MEDS: piperacillin-tazobactam 3.375 GM in sodium chloride 0.9% (plus) 50 ML IV ×3 (01:58→17:19)
[2021-04-12] MEDS: morphine 4 mg/mL SDV 1 mL 2 MG IVP ×6 (05:38→23:18)
[2021-04-12 05:50] LABS: Basophils % 0.1 %; Eosinophils % 0.1 %; Hematocrit 35.8 % (37.0-47.0); Hemoglobin 11.1 g/dL (11.5-15.3); Lymphocytes # 3.1 10^3/uL (0.8-4.8); Lymphocytes % 22.3 %; Mean Corpuscular Hemoglobin 31.9 pg (28.0-34.0); Mean Corpuscular Volume 102.9 fl (81-99); Mean Platelet Volume 10.8 fL (7.4-10.4); Monocytes # 0.4 10^3/uL (0.2-0.9); Monocytes % 3.1 %; Neutrophils # 10.16 10^3/uL (1.8-7.7); Neutrophils % 73.7 %; Nucleated Red Blood Cells % 0 %; Platelet Count 196 10^3/cmm (130-400); Red Blood Count 3.48 10^6/uL (4.1-5.3); Red Cell Distribution Width 22.2 % (12.1-15.1); White Blood Count 13.8 10^3/uL (4.0-10.0)
[2021-04-12] MEDS: loperamide 2 mg Capsule 4 MG PO (05:59)
[2021-04-12] MEDS: insulin lispro 100 unit/1 mL SUBCUT ×3 (06:00→20:47)
[2021-04-12 06:06] LABS: Glucose Point of Care 148 mg/dL (70-110)
[2021-04-12 06:11] LABS: Blood Urea Nitrogen 4 mg/dL (8-23); Calcium 7.6 mg/dL (8.5-10.5); Carbon Dioxide 26 mmol/L (22-29); Chloride 99 mmol/L (98-107); Glomerular Filtration Rate 160.2 mL/min (90-130); Glucose 127 mg/dL (65-115); Osmolality Calculated 286 mOsm/kg (285-295); Sodium 139 mmol/L (136-145)
[2021-04-12 06:14] LABS: Anion Gap 17.3 (5-19); Potassium 3.3 mmol/L (3.5-5.1)
--- NOTE | 2021-04-12 06:25 | PC.NURSE ---
Wound Dressing Patient's dressing on the right arm skin tear and on part of the sacrum wound were soiled. Hydrafera blue with kurlex placed on right arm while hydrafera blue secured with a bandage placed on sacrum ulcer. Patient tolerated dressing changes well.
[2021-04-12] MEDS: gabapentin 300 mg Capsule PO ×3 (08:08→20:46)
[2021-04-12] MEDS: venlafaxine ER (24HR) 75 mg Capsule PO (08:08)
[2021-04-12] MEDS: pantoprazole DR 40 mg Tablet PO (08:08)
[2021-04-12] MEDS: quetiapine 25 mg Tablet 12.5 MG PO ×2 (08:09→20:46)
[2021-04-12] MEDS: fluticasone nasal spray 16gm Btl 1 SPRAY INTRANASAL (08:09)
[2021-04-12] MEDS: CLONazepam 0.5 mg Tablet PO ×2 (08:20→22:01)
[2021-04-12] MEDS: potassium chloride ER 20 mEq Tablet 40 MEQ PO (08:21)
--- NOTE | 2021-04-12 09:30 | PC.SOCIAL ---
IMM Update pg 2 of IMM Updated and reviewed w/ patient. Copy provided and Copy in chart updated.
[2021-04-12] MEDS: FUROsemide 10 mg/mL SDV 2mL 20 MG IVP (10:42)
--- NOTE | 2021-04-12 10:54 | PC.NURSE ---
Addendum entered by Bharathi Cardoso RN 04/12/21 11:01: notified of confusion today. Original Note: Pt has been very confused today. Able to answer all orientation questions correctly but is confused with events and the situation around her. She has reported seeing people in her room and has been asking to get up to the bathroom to call her mom. Pt redirected and reoriented as needed. Will monitor.
[2021-04-12 10:56] LABS: Glucose Point of Care 135 mg/dL (70-110)
--- NOTE | 2021-04-12 11:34 | P.PN_ITS ---
Subjective Subjective: Patient was seen and examined this morning, she was slightly confused, likely ICU acquired delirium. Continues to have significantly good urine output with Lasix, anasarca is slowly improving, Platelet count has remained stable, hemoglobin has remained stable after 1 unit PRBC transfusion. Continue to have diarrhea, cannot rule out underlying malabsorption syndrome. Stool infectious disease study has been negative so far. Continue to be afebrile, continue to maintain good map. Her other vitals and labs have been reviewed Medications: Medication Review Details: Generic Name Dose Route Start Last Admin Trade Name Winstonq PRN Reason Stop Dose Admin Atorvastatin Calci um 20 mg 04/05/21 21:00 04/05/21 22:02 Atorvastatin 40 Mg Tablet PO 20 mg BEDTIME TERRI Administration Fluticasone Propio wm 1 spray 04/06/21 09:00 04/06/21 09:05 Fluticasone [place] l [place] 16gm Btl INTRANASAL 1 applic DAILY TERRI Administration Gabapentin 300 mg 04/05/21 21:00 04/06/21 09:04 Gabapentin 300 M g Capsule PO 300 mg TID TERRI Administration Heparin Sodium (Po rcine) 5,000 unit 04/05/21 20:00 04/06/21 09:08 Heparin 5,000 Un it/Ml Inj 1 Ml SUBCUT 5,000 unit Q12H TERRI Administration Piperacillin Sod/T azobactam 50 mls @ 12.5 mls /hr 04/05/21 18:30 04/06/21 11:18 Sod 3.375 gm/ So dium Chloride IV 12.5 mls/hr Q8H TERRI Administration Protocol Vancomycin HCl 1,0 00 mg/ 250 mls @ 250 mls /hr 04/06/21 03:45 04/06/21 05:37 Sodium Chloride IV Infused Q12H TERRI Infusion Protocol Potassium Chloride /Sodium Chloride 40 meq in 1,000 m ls @ 50 mls/hr 04/05/21 17:45 04/06/21 15:26 Sodium Chlor 0.9 % + Kcl 40 Meq IV 04/07/21 09:44 50 mls/hr .Q20H TERRI Administration Albumin Human 25 gm in 100 mls @ 60 mls/hr 04/05/21 18:45 04/06/21 11:19 Albumin IV 04/06/21 23:59 25 mls/hr Q8H TERRI Administration Norepinephrine Bit artrate 8 mg 508 mls @ 0 mls/h r 04/06/21 04:45 04/06/21 05:51 / Dextrose IV 3 mcg/min .Q0M TERRI 11.43 mls/hr Titration Protocol Per Protocol Insulin Human Lisp ro 0 unit 04/05/21 20:32 04/06/21 09:08 Insulin Lispro 1 00 Unit/1 Ml SUBCUT 1 unit WM&BEDTIME TERRI Administration Protocol Lanolin 1 applic 04/06/21 08:20 04/06/21 11:22 Lanolin Oint 7 G m TOPICAL 1 applic PRN PRN Administration DRYNESS Midodrine 10 mg 04/05/21 21:00 04/06/21 09:04 Midodrine 5 Mg T ablet PO 10 mg TID TERRI Administration Pantoprazole Sodiu m 40 mg 04/06/21 09:00 04/06/21 09:[address] 40 Mg Tablet PO 40 mg DAILY TERRI Administration Quetiapine Fumarat e 12.5 mg 04/05/21 21:00 04/06/21 09:03 Quetiapine 25 Mg Tablet PO 12.5 mg BID@0900,2100 TERRI Administration Venlafaxine HCl 75 mg 04/06/21 09:00 04/06/21 09:04 Venlafaxine Er ( 24hr) 75 Mg Capsul e PO 75 mg DAILY TERRI Administration Vitals/I&O/Wt Last Vital Signs Temp 98.1 F 04/12/21 08:00 Pulse 114 H 04/12/21 10:30 Resp 9 L 04/12/21 10:30 BP 114/74 04/12/21 10:30 Pulse Ox 98 04/12/21 10:30 04/11/21 04/12/21 04/12/21 22:59 06:59 14:59 Intake Total 650 / 1765.417 272 / 2036.417 480 / 480 Output Total 1700 / 1700 2325 / 4025 Balance -1050 / 65.417 -2052 / -1986.583 480 / 480 Weight last 48 hrs Weight 64.41 kg Weight 66.723 kg Physical Exam Narrative: Alert and awake HENMT: COMMON NORMALS: normocephalic and atraumatic HEAD & SCALP: normocephalic and atraumatic Eye: COMMON NORMALS: no scleral icterus GENERAL EYE: appearance normal, both eyes and all related structures Chest: COMMONS NORMALS: normal inspection of the chest and normal palpation of entire chest wall CHEST: Yes Symmetrical chest wall rise Resp: COMMON NORMALS: normal respiratory effort EFFORT & INSPECTION: Yes symmetric chest movement OTHER: Diminished air entry at RT lower lung field Cardio: COMMON NORMALS: regular rate, regular rhythm, S1 normal heart sound present, S2 normal heart sound present, No gallops present (Cardio), No murmurs present (Cardio), No rub (Cardio) and Peripheral pulses 2+ throughout RATE: regular rate RHYTHM: regular rhythm HEART SOUNDS: S1 normal heart sound present and S2 normal heart sound present PERIPHERAL PULSES: Peripheral pulses 2+ throughout GI: COMMON NORMALS: Normal to inspection, nondistended, normoactive bowel sounds present, Soft to palpation, non-tender, No hepatosplenomegaly present and no masses AUSCULTATION: Yes normoactive bowel sounds PALPATION: Yes Soft to palpation and Yes No hepatosplenomegaly present RECTAL EXAM: deferred Extremity: COMMON NORMALS: no clubbing, cyanosis or edema and no pedal edema OTHER: b/l feet 2+ pitting edema, bilateral upper extremity swelling. Skin: NARRATIVE SKIN EXAM: Multiple pressure tissue injury ulcers. Unstageable with black adherent eschar. Urinary Catheter Management: Voss: Cath Placed During This Visit: no Reason for Continuing Indwelling Catheter: Accurate Measurement of Urinary Output in Critically Ill Patients Data : 04/12/21 05:44 04/12/21 05:44 Micro: Microbiology 04/10/21 17:15 C.difficile Toxin B Gene (PCR) - Final Stool - Stool Aspirate A&P Assessment and plan (1) Sepsis: Status: Acute (2) Hypotension: Status: Acute (3) Pressure injury, unstageable, with eschar: Status: Acute (4) Type 2 diabetes mellitus: Status: Acute Qualifiers: Diabetes mellitus complication detail: with unspecified neuropathy Diabetes mellitus complication status: with neurologic complications Diabetes mellitus group home insulin use: without group home use Qualified Code(s): E11.40 - Type 2 diabetes mellitus with diabetic neuropathy, unspecified (5) Lactic acidosis: Status: Acute (6) Moderate protein-calorie malnutrition: Status: Acute (7) Physical deconditioning: Status: Acute (8) Anasarca: Status: Acute (9) Hypokalemia: Status: Acute (10) Refeeding syndrome: Status: Chronic Plan Assessment: Sepsis likely secondary to extensive wound in the lower extremity as well as on the back, UTI Hypothermic, hypotensive, currently requiring Levophed, recent history of ESBL E. coli, Adrenal insufficiency was ruled out during last admission. Blood culture Urine culture:GNR: ESBL E. coli Lactic acid:6.1 Repeat lactic acid:2.5 stool C. difficile: Negative Follow stool : Stool enteric parasitic , bacterial panel by PCR negative, stool lactoferrin negative MRSA nares positive: On mupirocin Blood culture: NTD Procalcitonin:0.21 2D echo: Normal LV systolic function with grade 2 diastolic dysfunction.? Ejection fraction 60%. No gross valvular abnormality noted. CT abdomen and pelvis with contrast:Moderate right and small left pleural effusion.Bibasilar atelectasis versus infiltrate. Diffuse nonspecific subcutaneous edema about the abdomen and pelvis. Subcutaneous emphysema over the right posterior pelvis, nonspecific. XR chest?: Small right pleural effusion and patchy largely right lower lobe atelectasis versus infiltrate. Currently on Zosyn., Vancomycin has been discontinued Continue Levophed. Will attempt to titrate off Levophed and put her back on midodrine. Continue Wound care. Surgery on board: S/p debridement #DIC : Likely secondary to sepsis PT :16.80 INR : 1.33 , D-Dimer: 1.46 , serum fibrinogen: 150 , FDP : Positive. Continue to monitor. Will manage based on the presentation. Thrombocytopenia: Admission platelet count: 20296: Low clinical suspicion for HIT: 4 T score: Low (will follow HIT panel ) : Given new superficial vein thrombosis. Can be started on Eliquis if needed. Low clinical suspicion for TTP: Plasmic score: Low: PBS reviewed: No Terri istocytes , no clear hemolysis seen (we will hold off on sending Deonte TS 13 assay) :LDH : 228, haptoglobin: 95 , total bilirubin normal DIC panel: PT , PTT serum fibrinogen, D-Dimer, FDP, ( ISTH criteria) : No active oozing from any I.V site. Continue to monitor CBC. Currently no active signs of bleeding , petechiae , purpura. Continue Lovenox 40 subcu daily. Possibly secondary to sepsis, chronic illness, cannot conclusively rule out drug-induced. Vancomycin has been discontinued We will continue with aspirin for now. Pressure injury: Chronic. Unstageable with eschar. Appreciate surgery recommendation Continue with Betadine paint twice daily as per surgical recommendation on recent hospitalization. Due for debridement today. Frequent turning in bed. Nutrition optimization. Appropriate mattress. #Anemia: Likely ACD: Continue to monitor H&H S/p 1 unit PRBC transfusion Transfuse to maintain's Hb greater than 7 # Superficial venous thrombosis: right cephalic vein distally extending into the antecubital fossa. Was on aspirin 81 mg daily and lovenox has been kept on hold due to severe thrombocytopenia. Anasarca: Most likely from PEM and hypoalbuminemia. Chronically ill patient. 2D echo: Protein supplementation. DM2 : SSI, FSG , regular diet. Hypokalemia: Most likely secondary to to aggressive diuresis at half-way. Replete. H/O refeeding syndrome: Monitor electrolytes (magnesium , phosphorus , potassium ) . Replete accordingly Moderate protein energy malnutrition: Regular diet with protein supplementation. Physical deconditioning. Dietitian consult. DVT prophylaxis. On Lovenox Protonix for PUD prophylaxis. Attestations Medical Necessity Statement*: Patient is to be in hospital for management of sepsis. Anticipated discharge in 24 hours. Time Spent in Patient Care: Greater than 35 minutes (>than 50% of time spent in counselling and/or direct pt care on unit) . Coding Level of Care Code Acute Kick Press Setter for [facility] Fwd Exam Detailed Diagnoses Sepsis A41.9 Hypotension I95.9 Pressure injury, unstageable, with eschar L89.95 Type 2 diabetes mellitus E11.40 Diabetes mellitus complication detail: with unspecified neuropathy Diabetes mellitus complication status: with neurologic complications Diabetes mellitus group home insulin use: without termite renewal inspector use Lactic acidosis E87.2 Moderate protein-calorie malnutrition E44.0 Physical deconditioning R53.81 Anasarca R60.1 Hypokalemia E87.6 Refeeding syndrome E87.8
--- NOTE | 2021-04-12 13:40 | PC.NURSE ---
Wound care performed per orders. Pain med given prior. Pt tolerated fair. VSS. Will monitor.
[2021-04-12 16:54] LABS: Glucose Point of Care 143 mg/dL (70-110)
--- NOTE | 2021-04-12 18:03 | PC.NURSE ---
Addendum entered by Bharathi Cardoso RN 04/12/21 18:15: MD notified of continued confusion and HR elevation. No new orders at this time. Original Note: Shift Note Frequent safety and comfort rounds continue. Orders and/or nursing care completed as indicated. Patient monitored for response to intervention and treatment(s). Education provided includes treatment plan, medications regimen, NH placement plans. verbalizes understanding. Pt remains very confused and anxious. Answers orientation questions appropriately but is confused as to what she needs to do and she sees people in room that aren't there. Md made aware this morning. VSS. HR has been tachycardic all day, tends to worsen with major movement and activity. Will continue to monitor.
[2021-04-12 20:39] LABS: Glucose Point of Care 152 mg/dL (70-110)
[2021-04-12] MEDS: atorvastatin 40 mg Tablet 20 MG PO (20:46)
[2021-04-13] VITALS (41 sets, daily range): BP systolic 87–167; BP diastolic 53–145; PULSE 102–147; RESP 0–24; TEMP 37–37.3; O2SAT 89–100
[2021-04-13] MEDS: piperacillin-tazobactam 3.375 GM in sodium chloride 0.9% (plus) 50 ML IV ×3 (02:07→18:12)
[2021-04-13 05:27] LABS: Basophils % 0.2 %; Eosinophils # 0.1 10^3/uL (0.0-0.8); Eosinophils % 0.4 %; Hematocrit 34.1 % (37.0-47.0); Hemoglobin 10.9 g/dL (11.5-15.3); Lymphocytes # 3.1 10^3/uL (0.8-4.8); Lymphocytes % 25.6 %; Mean Corpuscular Hemoglobin 32.1 pg (28.0-34.0); Mean Corpuscular Volume 100.3 fl (81-99); Monocytes # 0.4 10^3/uL (0.2-0.9); Monocytes % 3.4 %; Neutrophils % 69.9 %; Nucleated Red Blood Cells % 0 %; Platelet Count 207 10^3/cmm (130-400); Red Cell Distribution Width 21.2 % (12.1-15.1); White Blood Count 12.2 10^3/uL (4.0-10.0)
[2021-04-13 05:55] LABS: Blood Urea Nitrogen 5 mg/dL (8-23); Carbon Dioxide 28 mmol/L (22-29); Chloride 98 mmol/L (98-107); Glomerular Filtration Rate 160.2 mL/min (90-130); Glucose 100 mg/dL (65-115); Osmolality Calculated 289 mOsm/kg (285-295); Sodium 141 mmol/L (136-145)
[2021-04-13 07:36] LABS: Glucose Point of Care 100 mg/dL (70-110)
[2021-04-13] MEDS: pantoprazole DR 40 mg Tablet PO (08:10)
[2021-04-13] MEDS: venlafaxine ER (24HR) 75 mg Capsule PO (08:10)
[2021-04-13] MEDS: gabapentin 300 mg Capsule PO ×3 (08:10→21:16)
[2021-04-13] MEDS: ferrous sulfate EC 325 mg Tablet PO (08:10)
[2021-04-13] MEDS: quetiapine 25 mg Tablet 12.5 MG PO ×2 (08:11→21:17)
[2021-04-13] MEDS: fluticasone nasal spray 16gm Btl 1 SPRAY INTRANASAL (08:12)
--- NOTE | 2021-04-13 10:04 | PC.CHAP ---
Pastoral Care Encounter/Spiritual Assessment Type of Contact [] Declined alarm field technician visit [] Patient/Family/Request visit [] Outpatient visit [] Follow-up visit [] Physician referral [] Code/Alert [x] Routine visit [] Staff referral [] Actively dying [x] Patient sleeping [] Family support [] [] Out of room [] Palliative care [] [] Receiving care in room [] Pre-surgical visit [] Trauma [] Long length of stay [x] ICU visit [] Other: Relational/Emotional Strength [] Patient feels connected with others/family/visitors/staff [] Distress [] Loneliness/isolation [] Abandonment Spirituality of Patient [] Person of [place] [] Attends Latter-Day of their [place] [] Believes in Prayer [] Reads Bible or Presybeterian materials [] There are Spiritual issues to be addressed Blower Operator Interventions [x] Prayer [] Active listening [] Non-anxious presence [] Spiritual/emotional support [] Crisis/trauma care [] Spiritual counseling [] Bereavement support [] Provided bereavement packet [] Provided Bible/devotional materials [] Provided toy/stuffed animal, coloring book to patient or family member [] Provided Communion [] Anointing/[place] [] Salvation [x] Completed spiritual assessment [] Other: Impact on Illness or Injury [] Angry [] Fearful [] Anxious [] Often cries [] Exhaustion [] Unable to work [] Unable to attend buddhism [] Unable to walk/stand [] Unable to read [] Unable to drive [] Unable to eat/drink [] Unable to sleep [] Unable to be with family [] Patient intubated [] Other: Summary Time spent with patient
[2021-04-13 11:03] LABS: Glucose Point of Care 132 mg/dL (70-110)
--- NOTE | 2021-04-13 14:21 | PM.PN ---
Subjective Subjective: Patient was seen and examined this morning, she was confused overnight, likely ICU acquired delirium. Continued remain afebrile , continue to maintain good map , has sinus tachycardia likely secondary to underlying anxiety. We will possibly try low-dose metoprolol. Medications: Medication Review Details: Generic Name Dose Route Start Last Admin Trade Name Freq PRN Reason Stop Dose Admin Atorvastatin Calci um 20 mg 04/05/21 21:00 04/05/21 22:02 Atorvastatin 40 Mg Tablet PO 20 mg BEDTIME MACK Administration Fluticasone Propio wm 1 spray 04/06/21 09:00 04/06/21 09:05 Fluticasone Nasa l Mcalpin 16gm Btl INTRANASAL 1 applic DAILY MACK Administration Gabapentin 300 mg 04/05/21 21:00 04/06/21 09:04 Gabapentin 300 M g Capsule PO 300 mg TID MACK Administration Heparin Sodium (Po rcine) 5,000 unit 04/05/21 20:00 04/06/21 09:08 Heparin 5,000 Un it/Ml Inj 1 Ml SUBCUT 5,000 unit Q12H MACK Administration Piperacillin Sod/T azobactam 50 mls @ 12.5 mls /hr 04/05/21 18:30 04/06/21 11:18 Sod 3.375 gm/ So dium Chloride IV 12.5 mls/hr Q8H MACK Administration Protocol Vancomycin HCl 1,0 00 mg/ 250 mls @ 250 mls /hr 04/06/21 03:45 04/06/21 05:37 Sodium Chloride IV Infused Q12H MACK Infusion Protocol Potassium Chloride /Sodium Chloride 40 meq in 1,000 m ls @ 50 mls/hr 04/05/21 17:45 04/06/21 15:26 Sodium Chlor 0.9 % + Kcl 40 Meq IV 04/07/21 09:44 50 mls/hr .Q20H MACK Administration Albumin Human 25 gm in 100 mls @ 60 mls/hr 04/05/21 18:45 04/06/21 11:19 Albumin IV 04/06/21 23:59 25 mls/hr Q8H MACK Administration Norepinephrine Bit artrate 8 mg 508 mls @ 0 mls/h r 04/06/21 04:45 04/06/21 05:51 / Dextrose IV 3 mcg/min .Q0M MACK 11.43 mls/hr Titration Protocol Per Protocol Insulin Human Lisp ro 0 unit 04/05/21 20:32 04/06/21 09:08 Insulin Lispro 1 00 Unit/1 Ml SUBCUT 1 unit WM&BEDTIME MACK Administration Protocol Lanolin 1 applic 04/06/21 08:20 04/06/21 11:22 Lanolin Oint 7 G m TOPICAL 1 applic PRN PRN Administration DRYNESS Midodrine 10 mg 04/05/21 21:00 04/06/21 09:04 Midodrine 5 Mg T ablet PO 10 mg TID MACK Administration Pantoprazole Sodiu m 40 mg 04/06/21 09:00 04/06/21 09:[address] 40 Mg Tablet PO 40 mg DAILY MACK Administration Quetiapine Fumarat e 12.5 mg 04/05/21 21:00 04/06/21 09:03 Quetiapine 25 Mg Tablet PO 12.5 mg BID@0900,2100 MACK Administration Venlafaxine HCl 75 mg 04/06/21 09:00 04/06/21 09:04 Venlafaxine Er ( 24hr) 75 Mg Capsul e PO 75 mg DAILY MACK Administration Vitals/I&O/Wt Last Vital Signs Temp 98.8 F 04/13/21 12:00 Pulse 134 H 04/13/21 12:30 Resp 17 04/13/21 12:30 BP 87/53 04/13/21 12:30 Pulse Ox 100 04/13/21 09:30 04/12/21 04/13/21 04/13/21 22:59 06:59 14:59 Intake Total 820 / 1660 170 / 1830 480 / 480 Output Total 1850 / 3100 400 / 3500 Balance -1030 / -1440 -230 / -1670 480 / 480 Weight last 48 hrs Weight 64.864 kg Weight 64.41 kg Physical Exam Narrative: Alert and awake HENMT: COMMON NORMALS: normocephalic and atraumatic HEAD & SCALP: normocephalic and atraumatic Eye: COMMON NORMALS: no scleral icterus GENERAL EYE: appearance normal, both eyes and all related structures Chest: COMMONS NORMALS: normal inspection of the chest and normal palpation of entire chest wall CHEST: Yes Symmetrical chest wall rise Resp: COMMON NORMALS: normal respiratory effort EFFORT & INSPECTION: Yes symmetric chest movement OTHER: Diminished air entry at RT lower lung field Cardio: COMMON NORMALS: regular rate, regular rhythm, S1 normal heart sound present, S2 normal heart sound present, No gallops present (Cardio), No murmurs present (Cardio), No rub (Cardio) and Peripheral pulses 2+ throughout RATE: regular rate RHYTHM: regular rhythm HEART SOUNDS: S1 normal heart sound present and S2 normal heart sound present PERIPHERAL PULSES: Peripheral pulses 2+ throughout GI: COMMON NORMALS: Normal to inspection, nondistended, normoactive bowel sounds present, Soft to palpation, non-tender, No hepatosplenomegaly present and no masses AUSCULTATION: Yes normoactive bowel sounds PALPATION: Yes Soft to palpation and Yes No hepatosplenomegaly present RECTAL EXAM: deferred Extremity: COMMON NORMALS: no clubbing, cyanosis or edema and no pedal edema OTHER: b/l feet 2+ pitting edema, bilateral upper extremity swelling. Skin: NARRATIVE SKIN EXAM: Multiple pressure tissue injury ulcers. Unstageable with black adherent eschar. 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 coli, Adrenal insufficiency was ruled out during last admission. Blood culture Urine culture:GNR: ESBL E. coli Lactic acid:6.1 Repeat lactic acid:2.5 stool C. difficile: Negative Follow stool : Stool enteric parasitic , bacterial panel by PCR negative, stool lactoferrin negative MRSA nares positive: On mupirocin Blood culture: NTD Procalcitonin:0.21 2D echo: Normal LV systolic function with grade 2 diastolic dysfunction.? Ejection fraction 60%. No gross valvular abnormality noted. CT abdomen and pelvis with contrast:Moderate right and small left pleural effusion.Bibasilar atelectasis versus infiltrate. Diffuse nonspecific subcutaneous edema about the abdomen and pelvis. Subcutaneous emphysema over the right posterior pelvis, nonspecific. XR chest?: Small right pleural effusion and patchy largely right lower lobe atelectasis versus infiltrate. Currently on Zosyn., Vancomycin has been discontinued Continue Levophed. Will attempt to titrate off Levophed and put her back on midodrine. Continue Wound care. Surgery on board: S/p debridement #DIC : Likely secondary to sepsis PT :16.80 INR : 1.33 , D-Dimer: 1.46 , serum fibrinogen: 150 , FDP : Positive. Continue to monitor. Will manage based on the presentation. Thrombocytopenia: Admission platelet count: [id number]: Low clinical suspicion for HIT: 4 T score: Low (will follow HIT panel ) : Given new superficial vein thrombosis. Can be started on Eliquis if needed. Low clinical suspicion for TTP: Plasmic score: Low: PBS reviewed: No Schistocytes , no clear hemolysis seen (we will hold off on sending Deonte TS 13 assay) :LDH : 228, haptoglobin: 95 , total bilirubin normal DIC panel: PT , PTT serum fibrinogen, D-Dimer, FDP, ( ISTH criteria) : No active oozing from any I.V site. Continue to monitor CBC. Currently no active signs of bleeding , petechiae , purpura. Continue Lovenox 40 subcu daily. Possibly secondary to sepsis, chronic illness, cannot conclusively rule out drug-induced. Vancomycin has been discontinued We will continue with aspirin for now. Pressure injury: Chronic. Unstageable with eschar. Appreciate surgery recommendation Continue with Betadine paint twice daily as per surgical recommendation on recent hospitalization. Due for debridement today. Frequent turning in bed. Nutrition optimization. Appropriate mattress. #Anemia: Likely ACD: Continue to monitor H&H S/p 1 unit PRBC transfusion Transfuse to maintain's Hb greater than 7 # Superficial venous thrombosis: right cephalic vein distally extending into the antecubital fossa. Was on aspirin 81 mg daily and lovenox has been kept on hold due to severe thrombocytopenia. Anasarca: Most likely from PEM and hypoalbuminemia. Chronically ill patient. 2D echo: Protein supplementation. DM2 : SSI, FSG , regular diet. Hypokalemia: Most likely secondary to to [facility]. Replete. H/O refeeding syndrome: Monitor electrolytes (magnesium , phosphorus , potassium ) . Replete accordingly Moderate protein energy malnutrition: Regular diet with protein supplementation. Physical deconditioning. Dietitian consult. DVT prophylaxis. On Lovenox Protonix for PUD prophylaxis. Attestations Medical Necessity Statement*: Patient is to be in hospital for management of sepsis.? Coding Level of Care Code Acute Wildlife Control Operator for [facility] Fwd Exam Detailed Diagnoses Sepsis A41.9 Hypotension I95.9 Pressure injury, unstageable, with eschar L89.95 Type 2 diabetes mellitus E11.40 Diabetes mellitus complication detail: with unspecified neuropathy Diabetes mellitus complication status: with neurologic complications Diabetes mellitus fpc insulin use: without intermodal owner operator truck driver use Lactic acidosis E87.2 Moderate protein-calorie malnutrition E44.0 Physical deconditioning R53.81 Anasarca R60.1 Hypokalemia E87.6 Refeeding syndrome E87.8
--- NOTE | 2021-04-13 17:20 | PC.NURSE ---
Care assumed after brief report from RADHA Cleveland.
--- NOTE | 2021-04-13 17:20 | PC.NURSE ---
Care assumed after brief report from RADHA Mcknight.
[2021-04-13 17:31] LABS: Glucose Point of Care 137 mg/dL (70-110)
--- NOTE | 2021-04-13 18:27 | PC.NURSE ---
Shift Note Pt remains confused but pleasant. She has pulled out an IV today. US used to placement another IV . Wound care done by Megha Landers RN after 1700, immediately prior to my receiving report. Pt ate well at dinner. Her Bill called for an update this evening update given. Frequent safety and comfort rounds continue. Orders and/or nursing care completed as indicated. Patient monitored for response to intervention and treatment(s). Education provided includes wound care, and zosyn. 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 Pt lacks the capacity for remembering and true understanding. Will continue to monitor.
[2021-04-13] MEDS: atorvastatin 40 mg Tablet 20 MG PO (21:16)
[2021-04-13] MEDS: metoprolol tartrate 25 mg Tablet 12.5 MG PO (21:17)
[2021-04-13] MEDS: insulin lispro 100 unit/1 mL SUBCUT (21:21)
[2021-04-14] VITALS (12 sets, daily range): BP systolic 99–147; BP diastolic 52–100; PULSE 84–119; RESP 11–18; TEMP 36.7–37.2; O2SAT 92–96; BMI 24.6
[2021-04-14] MEDS: piperacillin-tazobactam 3.375 GM in sodium chloride 0.9% (plus) 50 ML IV (03:08)
[2021-04-14 03:52] LABS: Glucose Point of Care 268 mg/dL (70-110)
--- NOTE | 2021-04-14 06:20 | PC.NURSE ---
Shift Note Frequent safety and comfort rounds continue. Orders and/or nursing care completed as indicated. Patient monitored for response to intervention and treatment(s). Education provided includes wound care and frequent turning/repositioning. Patient needs reinforcement teaching. Patient remains confused throughout shift and had no complaints of pain overnight. Several wounds are noted in various places on body, please see wound assessment for details. Rectal tube fell out while turning patient, did not reinsert. Voss catheter drained 450 mls of urine overnight. Will continue to monitor.
[2021-04-14 07:51] LABS: Glucose Point of Care 158 mg/dL (70-110)
[2021-04-14] MEDS: pantoprazole DR 40 mg Tablet PO (08:14)
[2021-04-14] MEDS: venlafaxine ER (24HR) 75 mg Capsule PO (08:14)
[2021-04-14] MEDS: quetiapine 25 mg Tablet 12.5 MG PO (08:14)
[2021-04-14] MEDS: gabapentin 300 mg Capsule PO (08:14)
[2021-04-14] MEDS: fluticasone nasal spray 16gm Btl 1 SPRAY INTRANASAL (08:15)
[2021-04-14] MEDS: metoprolol tartrate 25 mg Tablet 12.5 MG PO (08:15)
[2021-04-14] MEDS: insulin lispro 100 unit/1 mL SUBCUT (08:15)
--- NOTE | 2021-04-14 08:19 | PM.DCS ---
Discharge Providers Date of Admission: 04/05/21 17:07 Date of Discharge: April 14, 2021 Attending Provider at Admission: Isac Fernando MD Attending Provider at Discharge: Michael Chris MD Primary Care Provider: Geeta Anders-Breanne Diagnoses at Discharge Discharge Diagnosis (1) Sepsis: Status: Acute (2) Hypotension: Status: Acute (3) Pressure injury, unstageable, with eschar: Status: Acute (4) Type 2 diabetes mellitus: Status: Acute Qualifiers: Diabetes mellitus complication detail: with unspecified neuropathy Diabetes mellitus complication status: with neurologic complications Diabetes mellitus alf insulin use: without intermediate card tender use Qualified Code(s): E11.40 - Type 2 diabetes mellitus with diabetic neuropathy, unspecified (5) Lactic acidosis: Status: Acute (6) Moderate protein-calorie malnutrition: Status: Acute (7) Physical deconditioning: Status: Acute (8) Anasarca: Status: Acute (9) Hypokalemia: Status: Acute (10) Refeeding syndrome: Status: Chronic Reason for Visit Reason for Visit: HYPOTENSION, HYPERGLYCEMIA Hospital Course Hospital Course HPI : Isac eFrnando MD 65 year old female with a past medical history of weh-gvjhymj-rzapdcbsw diabetes mellitus, recent history of left hip fracture, history of COVID-19 infection, refeeding syndrome, alcohol abuse in the past, history of lactic acidosis, anxiety, depression, protein energy malnutrition, decubitus ulcer, recent history of ileocolonic intussusception, E. coli ESBL UTI who was recently discharged from the hospital on 03/21 to SNF.? During that hospitalization multiple medication were changed. She has brought into the hospital today via EMS from [facility]. As per the nurse at [facility] patient recently started developing lower limb swelling for which she received 5 days of 40 mg of Lasix.? She started developing swelling in her right so there was a concern of cellulitis and started on doxycycline.? Today patient was hypotensive and lethargic so sent into the ER. In the ER patient was found to have systolic blood pressures of 70s over she she received 2 L of IV fluids after which her blood pressure stabilized. Blood work in the ER showed white count of 8.6, hemoglobin of 10.4, INR 1.3, sodium of 136, potassium of 2.3, creatinine of 0.4, lactate of 6.1, calcium of 7.4, albumin of 1.9 Hospital course: During the hospital stay she was managed for sepsis likely secondary to: extensive wound in the lower extremity as well as on the back as well as ESBL E. coli UTI.She was kept on broad-spectrum antibiotics vasopressors support, surgery was on board S/P debridement,wound care was continued. Hospital course was also complicated by development of DIC secondary to sepsis as well as thrombocytopenia, secondary DIC, required 2 bags of platelet transfusion during the hospital stay As well as 1 unit of PRBC. Once with improvement in her sepsis, DIC and thrombocytopenia had resolved. HIT work-up was negative, TTP was ruled out as a cause of thrombocytopenia. For her newly diagnosed superficial venous thrombosis:??right cephalic vein distally extending into the antecubital fossa. She should continue on aspirin on discharge as the platelet count has normalized now. Anasarca had improved a lot with cautious diuresis, nutritional optimization, she did receive few doses of albumin. Patient responded well to above medical management at the time of discharge she was hemodynamically stable Afebrile, though she had also developed ICU acquired delirium during the hospital stay which was slowly improving on discharge. Discharged in stable condition to intermediate facility. Pertinent work-up during the hospital stay includes: Blood culture: Negative, 2D echo:?Normal LV systolic function with grade 2 diastolic dysfunction.? Ejection fraction 60%. No gross valvular abnormality noted. CT abdomen and pelvis with contrast:Moderate right and small left pleural effusion.Bibasilar atelectasis versus infiltrate. Diffuse nonspecific subcutaneous edema about the abdomen and pelvis. Subcutaneous emphysema over the right posterior pelvis, nonspecific. CV venous duplex UE RT:: 1. Negative for deep venous thrombosis Superficial venous thrombosis seen in the right cephalic vein distally extending into the antecubital fossa. ? Physical Exam Narrative: Alert and awake HENMT: COMMON NORMALS: normocephalic and atraumatic HEAD & SCALP: normocephalic and atraumatic Eye: COMMON NORMALS: no scleral icterus GENERAL EYE: appearance normal, both eyes and all related structures Chest: COMMONS NORMALS: normal inspection of the chest and normal palpation of entire chest wall CHEST: Yes Symmetrical chest wall rise Resp: COMMON NORMALS: normal respiratory effort EFFORT & INSPECTION: Yes symmetric chest movement OTHER: Diminished air entry at RT lower lung field Cardio: COMMON NORMALS: regular rate, regular rhythm, S1 normal heart sound present, S2 normal heart sound present, No gallops present (Cardio), No murmurs present (Cardio), No rub (Cardio) and Peripheral pulses 2+ throughout RATE: regular rate RHYTHM: regular rhythm HEART SOUNDS: S1 normal heart sound present and S2 normal heart sound present PERIPHERAL PULSES: Peripheral pulses 2+ throughout GI: COMMON NORMALS: Normal to inspection, nondistended, normoactive bowel sounds present, Soft to palpation, non-tender, No hepatosplenomegaly present and no masses AUSCULTATION: Yes normoactive bowel sounds PALPATION: Yes Soft to palpation and Yes No hepatosplenomegaly present RECTAL EXAM: deferred Extremity: COMMON NORMALS: no clubbing, cyanosis or edema and no pedal edema OTHER: b/l feet 2+ pitting edema Skin: NARRATIVE SKIN EXAM: Multiple pressure tissue injury ulcers. Unstageable with black adherent eschar. Urinary Catheter Management: [place]oss: Cath Placed During This Visit: no Reason for Continuing Indwelling Catheter: Accurate Measurement of Urinary Output in Critically Ill Patients Discharge Data Studies Completed and Pending Completed Studies During Hospitalization Category Date Time Status CT abdomen pelvis w con* [id number] Stat Cat Scan 04/05/21 17:05 Completed XR chest 1V portable [id number] Stat Exams 04/05/21 15:04 Completed CV. echo complete* [id number] Routine Ultrasound 04/05/21 Completed US venous duplex upper extremity RT [CV venous duplex Ultrasound 04/05/21 15:[address] [place] [id number]] Urgent Radiology Impressions Venous Duplex 04/05/21 15:03 IMPRESSION: 1. Negative for deep venous thrombosis 2. Superficial venous thrombosis seen in the right cephalic vein distally extending into the antecubital fossa. ADDENDUM: 04/06/21 0951 The TECHNIQUE section should read: Real-time Duplex ultrasound of the Right Upper Extremity with 2-D womack scale, color Doppler flow and spectral waveform analysis with image documentation. Limited exam was focused on the right upper extremity veins. The sentence, The common femoral, femoral, proximal profunda femoral and popliteal veins are patent without thrombus. Normal Doppler waveforms. Normal compressibility and/or augmentation response. should be removed from the report. The right internal jugular, subclavian, axillary, brachial, radial and ulnar veins are patent. There is superficial venous thrombosis in the cephalic vein. Chest X-Ray 04/05/21 15:04 IMPRESSION: Small right pleural effusion and patchy largely right lower lobe atelectasis versus infiltrate. Abdomen/Pelvis CT 04/05/21 17:05 IMPRESSION: 1. Prominent fluid in the small bowel with mucosal enhancement suggestive of an enteritis. 2. Moderate right and small left pleural effusion. 3. Coronary artery atherosclerotic calcifications. 4. Bibasilar atelectasis versus infiltrate. 5. Hepatic steatosis. 6. Cholecystectomy. 7. Constipation. 8. Diffuse nonspecific subcutaneous edema about the abdomen and pelvis. 9. Subcutaneous emphysema over the right posterior pelvis, nonspecific. 10. Left kidney cyst, negative for follow-up advised. 11. Several bilateral renal cysts, negative for follow-up advised. 12. Possible posterior midline decubitus ulcer seen in the gluteal region, please correlate clinically. Laboratory Results WBC 12.2 10^3/uL (4.0-10.0) H 04/13/21 04:59 RBC 3.40 10^6/uL (4.1-5.3) L 04/13/21 04:59 Hgb 10.9 g/dL (11.5-15.3) L 04/13/21 04:59 Hct 34.1 % (37.0-47.0) L 04/13/21 04:59 MCV 100.3 fl (81-99) H 04/13/21 04:59 MCH 32.1 pg (28.0-34.0) 04/13/21 04:59 MCHC 32.0 g/dL (30.0-36.0) 04/13/21 04:59 RDW 21.2 % (12.1-15.1) H 04/13/21 04:59 Plt Count 207 10^3/cmm (130-400) 04/13/21 04:59 MPV 11.0 fL (7.4-10.4) H 04/13/21 04:59 Neut % (Auto) 69.9 % 04/13/21 04:59 Lymph % (Auto) 25.6 % 04/13/21 04:59 [place] % (Auto) 3.4 % 04/13/21 04:59 Eos % (Auto) 0.4 % 04/13/21 04:59 Baso % (Auto) 0.2 % 04/13/21 04:59 Neut # (Auto) 8.50 10^3/uL (1.8-7.7) H 04/13/21 04:59 Lymph # (Auto) 3.1 10^3/uL (0.8-4.8) 04/13/21 04:59 [place] # (Auto) 0.4 10^3/uL (0.2-0.9) 04/13/21 04:59 Eos # (Auto) 0.1 10^3/uL (0.0-0.8) 04/13/21 04:59 Baso # (Auto) 0.0 10^3/uL (0.0-0.1) 04/13/21 04:59 Nucleated RBC % (auto) 0 % 04/13/21 04:59 Nucleated RBCs # 0.0 /100WBC 04/13/21 04:59 Haptoglobin 95.0 mg/L (30-200) 04/08/21 04:20 Heparin Require Pat 0.040 OD UNITS 04/08/21 04:20 PT 17.40 SECONDS (12.1-14.9) H 04/10/21 03:56 INR 1.38 (0.8-1.2) H 04/10/21 03:56 APTT 47.3 SECONDS (23.9-36.7) H 04/10/21 03:56 Fibrinogen 247 mg/dL (174-498) 04/10/21 03:56 Fibrin Degrad Products Pos, 10-40 ug/mL (NEG) H 04/10/21 03:56 D-Dimer 1.46 ug/mIFEU (0-0.59) H 04/08/21 04:20 Sodium 141 mmol/L (136-145) 04/13/21 04:59 Potassium 4.0 mmol/L (3.5-5.1) 04/13/21 04:59 Chloride 98 mmol/L (98-107) 04/13/21 04:59 Carbon Dioxide 28 mmol/L (22-29) 04/13/21 04:59 Anion Gap 19.0 (5-19) 04/13/21 04:59 BUN 5 mg/dL (8-23) L 04/13/21 04:59 Creatinine 0.4 mg/dL (0.5-0.9) L 04/13/21 04:59 GFR Calculation 160.2 mL/min (90-130) H 04/13/21 04:59 Glucose 100 mg/dL (65-115) 04/13/21 04:59 POC Glucose 158 mg/dL (70-110) H 04/14/21 07:43 Calculated Osmolality 289 mOsm/kg (285-295) 04/13/21 04:59 Lactate 2.5 mmol/L (0.5-2.2) H 04/07/21 03:05 Calcium 8.0 mg/dL (8.5-10.5) L 04/13/21 04:59 Phosphorus 2.4 mg/dL (2.5-4.5) L 04/06/21 03:34 Magnesium 1.3 mg/dL (1.7-2.3) L 04/06/21 03:34 Total Bilirubin 1.2 mg/dL (0.15-1.2) 04/10/21 03:56 AST 28 U/L (0-32) 04/10/21 03:56 ALT 14 U/L (0-33) 04/10/21 03:56 Alkaline Phosphatase 89 IU/L (35-105) 04/10/21 03:56 Lactate Dehydrogenase 228 U/L (135-214) H 04/08/21 04:20 Total Protein 4.4 g/dL (6.6-8.7) L 04/10/21 03:56 Albumin 3.0 g/dL (3.5-5.2) L 04/10/21 03:56 Globulin 1.4 g/dL (1.3-4.6) 04/10/21 03:56 Procalcitonin 0.21 ng/mL (0-0.5) 04/07/21 03:05 Urine Color Colorless (Yellow) 04/06/21 00:15 Urine Appearance Clear (CLEAR) 04/06/21 00:15 Urine pH 6.5 (5-7) 04/06/21 00:15 Ur Specific [place] 1.000 (1.005-1.030) L 04/06/21 00:15 Urine Protein Neg (Negative) 04/06/21 00:15 Urine Glucose (UA) Norm (Normal) 04/06/21 00:15 Urine Ketones Negative (Negative) 04/06/21 00:15 Urine Blood Neg (Negative) 04/06/21 00:15 Urine Nitrate Negative (Negative) 04/06/21 00:15 Urine Bilirubin Neg (Negative) 04/06/21 00:15 Urine Urobilinogen Norm mg/dL (Negative) 04/06/21 00:15 Ur Leukocyte Esterase Trace (Negative) H 04/06/21 00:15 Urine RBC Rare /hpf (0-2) 04/05/21 17:04 Urine WBC 15-25 /hpf (0-5) H 04/05/21 17:04 Ur Squamous Epith Cells Rare /hpf (0-5) 04/05/21 17:04 Amorphous Sediment Not Reportable 04/05/21 17:04 Urine Bacteria 3+ /hpf (NONE) H 04/05/21 17:04 Vancomycin Trough 17.4 ug/mL (10-15) H 04/07/21 03:05 Heparin-induced Plt Ab Negative (Negative) 04/08/21 04:20 SARS-CoV-2 Ag (Rapid) Negative (Negative) 04/05/21 16:00 Blood Type A Positive 04/10/21 08:48 Rho(D) Type Positive 04/10/21 08:48 Antibody Screen Negative 04/10/21 08:48 Crossmatch See Detail 04/10/21 08:48 Vitals Last Vital Signs Temp 99.0 F 04/14/21 04:00 Pulse 106 H 04/14/21 07:00 Resp 12 04/14/21 07:00 BP 124/52 04/14/21 07:00 Pulse Ox 96 04/14/21 07:00 Discharge Plan Discharge Patient Disposition: Xfer SNF Condition: Stable Prescriptions: New aspirin [Adult Aspirin Regimen] 81 mg tablet,delayed release (DR/EC) 81 mg PO DAILY Qty: 30 0RF Continued biotin 10,000 mcg capsule 10,000 mcg PO DAILY 0RF calcium citrate-vitamin D3 [Calcium Citrate + D] 315 mg-5 mcg (200 unit) tablet 1 tab PO DAILY 0RF coenzyme Q10 [Co Q-10] 10 mg capsule 10 mg PO TID 0RF fluticasone propionate [Allergy Relief (fluticasone)] 50 mcg/actuation spray,suspension 1 spray intranasal DAILY 0RF Rx Instructions: administer into each nostril pantoprazole 40 mg tablet,delayed release (DR/EC) 40 mg PO DAILY 0RF simvastatin 40 mg tablet 40 mg PO DAILY 0RF multivitamin Tablet 1 tab PO DAILY 0RF venlafaxine 75 mg capsule,extended release 24hr 75 mg PO DAILY 0RF quetiapine [Seroquel] 25 mg Tablet 12.5 mg PO BID 0RF meclizine 25 mg Tablet 25 mg PO TID PRN (Reason: Dizziness) 0RF albuterol sulfate 90 mcg/actuation Hfa Aerosol Inhaler 2 puff INHALATION QID PRN (Reason: Shortness Of Breath) 0RF ferrous sulfate 325 mg (65 mg iron) Tablet,Delayed Release (Dr/Ec) 325 mg PO EVERY OTHER DAY Qty: 90 0RF thiamine mononitrate (vit B1) [Vitamin B-1 (mononitrate)] 100 mg Tablet 100 mg PO DAILY Qty: 90 0RF clonazepam 1 mg tablet 0.5 mg PO BID PRN (Reason: Anxiety) Qty: 0 0RF Breo Ellipta 200-25 mcg/dose blister with device 1 ea INHALATION DAILY 0RF gabapentin 300 mg Capsule 300 mg PO TID 30 Days Qty: 90 0RF Lactobacillus acidoph-L.bulgar 1 million cell Tablet 1 tab PO BID 30 Days Qty: 60 0RF furosemide 20 mg tablet 20 mg PO DAILY PRN (Reason: swelling) Qty: 0 0RF metoprolol tartrate 25 mg Tablet 12.5 mg PO BID@0900,2100 Qty: 180 0RF Januvia 100 mg tablet 100 mg PO DAILY Qty: 30 0RF (DME) FreeStyle Swathi 14 Day [place] Misc MISCELLANEOUS 0RF Changed midodrine 5 mg Tablet 10 mg PO TID PRN (Reason: hypotension) 30 Days Qty: 180 0RF Discontinued doxycycline hyclate 100 mg capsule 100 mg PO BID 0RF Discharge Orders: Discharge Order (Routine); Ordered 04/14/21 Ordered By: Michael Chris Referrals: [facility] [Outside] Geeta Anders FNP-C [Primary Care Provider] - Discharge Diet: Regular Discharge Activity: Increase activity as tolerated Discharge Attestations Time Spent in Discharge Care*: greater than 30 min Specific Discharge Activities: educating patient, educating and/or supporting family/caregiver, discussing with pcp/other providers, discussing with piano case and bench assembler/social workers/dc planners, documenting/other paperwork and evaluating patient/reviewing data Status at Discharge: Cognitive status at discharge: cognitively intact, Behavioral status at discharge: cooperative, Quality Metrics Clinical Quality Measures [ No reported AMI, CVA or VTE this stay] Coding Level of Care Code Acute Chg FW DC note Exam Detailed Diagnoses Sepsis A41.9 Hypotension I95.9 Pressure injury, unstageable, with eschar L89.95 Type 2 diabetes mellitus E11.40 Diabetes mellitus complication detail: with unspecified neuropathy Diabetes mellitus complication status: with neurologic complications Diabetes mellitus alf insulin use: without intermediate card tender use Lactic acidosis E87.2 Moderate protein-calorie malnutrition E44.0 Physical deconditioning R53.81 Anasarca R60.1 Hypokalemia E87.6 Refeeding syndrome E87.8
--- NOTE | 2021-04-14 10:18 | PC.NURSE ---
Report called to RADHA Marsh at [facility]. Transport to arrive in the next hour.
--- NOTE | 2021-04-14 11:09 | PC.NURSE ---
IV removed, catheter intact. Pressure dressing applied, patient tolerated well. Patient transported at 1110 from [facility] ICU. at bedside at the time of transport arrival. noted to have taken patient's belongings home. Jairon Galvez contacted and notified of Patient soon arrival time.
--- NOTE | 2021-04-15 18:19 | P.PNCC_ITS ---
Critical Care Event Note The high probability of a clinically significant, sudden or life threatening deterioration of the patient's [] system(s) required my full and direct attention, intervention and personal management. The critical care time is as shown. This time is in addition to time spent performing any reported procedures but includes the following: [x] Data and vital sign review and interpretation [x] Patient assessment, examination and intervention [x] Documentation [x] Medication orders and management Critical Care Time Code activated: No Critical Care Time (min): 0 Procedures Central Line Placement^ Right IJ: Time out performed: Yes Patient placed on monitor/pulse ox: Yes MD prep: mask, gown and gloves Central line prep: Chlorhexidine scrub and sterile drapes applied Local anesthesia used: lidocaine 1% Amount of anesthesia used (ml): 3 Ultrasound used for placement: Yes Central line lumen inserted: triple Post procedure: sutured in place, good blood return, all ports aspirated, flushed, capped and sterile dressing applied Post procedure x-ray: tip of catheter in good position Patient tolerated procedure: well and no complications Complications: none Additional comments: Line placed chair and couch maker 04/14/21 Coding Level of Care Code Acute Civil Engineering Director for Paola De Los Santos
== END 2021-04-14 11:14 | disposition skilled nursing facility (03) | DRG 853 ==
LOC: ER 15:08 → ICU 18:20
PROVIDERS: Family Medicine; Surgery; Admitting Provider Student in an Organized Health Care Education/Training Program; Emergency Provider Emergency Medicine; PCP Nurse Practitioner Family; Visit Provider Internal Medicine
PROC: 30233R1 Transfusion of Nonautologous Platelets into Peripheral Vein, Percutaneous Approach (ICD-10-PCS; principal; 2021-04-10 12:00)
DX: A41.9 Sepsis, unspecified organism (principal); L89.153 Pressure ulcer of sacral region, stage 3; D65 Disseminated intravascular coagulation [defibrination syndrome]; F05 Delirium due to known physiological condition; N39.0 Urinary tract infection, site not specified; I82.611 Acute embolism and thrombosis of superficial veins of right upper extremity; E44.0 Moderate protein-calorie malnutrition; I95.9 Hypotension, unspecified; E11.65 Type 2 diabetes mellitus with hyperglycemia; E11.42 Type 2 diabetes mellitus with diabetic polyneuropathy; F41.9 Anxiety disorder, unspecified; K21.9 Gastro-esophageal reflux disease without esophagitis; F10.21 Alcohol dependence, in remission; E78.5 Hyperlipidemia, unspecified; I10 Essential (primary) hypertension; F32.9 Major depressive disorder, single episode, unspecified; Z85.44 Personal history of malignant neoplasm of other female genital organs; Z98.84 Bariatric surgery status; Z87.891 Personal history of nicotine dependence; E87.5 Hyperkalemia; L89.620 Pressure ulcer of left heel, unstageable; L89.610 Pressure ulcer of right heel, unstageable; L89.890 Pressure ulcer of other site, unstageable; Z79.84 Long term (current) use of oral hypoglycemic drugs; Z79.51 Long term (current) use of inhaled steroids; D63.8 Anemia in other chronic diseases classified elsewhere; B96.20 Unspecified Escherichia coli [E. coli] as the cause of diseases classified elsewhere; B95.62 Methicillin resistant Staphylococcus aureus infection as the cause of diseases classified elsewhere; R68.0 Hypothermia, not associated with low environmental temperature; Z68.24 Body mass index [BMI] 24.0-24.9, adult; E07.9 Disorder of thyroid, unspecified; Z87.440 Personal history of urinary (tract) infections; Z86.16 Personal history of COVID-19
CPT/HCPCS: 36415; 36416; 36430; 36556; 71045; 74177; 80048; 80053; 80202; 81001; 81003; 82962; 83010; 83605; 83615; 83630; 83735; 84100; 84145; 85025; 85362; 85378; 85384; 85610; 85730; 86022; 86850; 86900; 86920; 87040; 87077; 87086; 87186; 87426; 87493; 87506; 87641; 93306; 93971; 94664; 96365; 96366; 96367; 96372; 96375; 97161; 97167; 97530; 99285; J0692; J1100; J1644; J1815; J1940; J2270; J2405; J2543; J2704; J2710; J2930; J3010; J3370; J3480; J3490; J7030; J7050; P9016; P9037; P9047; Q9967

== ENCOUNTER 2021-05-02 01:27 | Inpatient (IN) | payer MEDICARE, SELFPAY ==
[2021-05-02] VITALS (67 sets, daily range): BP systolic 58–135; BP diastolic 45–100; PULSE 101–160; RESP 0–21; TEMP 34.7–35.8; O2SAT 86–100; BMI 24.7
--- NOTE | 2021-05-02 01:34 | XRR_ITS ---
PROCEDURE INFORMATION: Exam: XR Chest Exam date and time: 05/02/2021 12:29 AM Age: 65 years old Clinical indication: Shortness of breath; Patient HX: Resp distress. Patient intubated via EMS in transit to er from long-term. Reported to have sp02 in high 60s. ; Additional info: SOB TECHNIQUE: Imaging protocol: XR of the chest. Views: 1 view. COMPARISON: CR XR chest 1V portable [id number] 04/05/2021 3:42 PM FINDINGS: Tubes, catheters and devices: Endotracheal tube is above the thoracic inlet about 9.5 cm above the shari. Lungs: Left lung base calcified granuloma stable from prior. Right lung base obscured. Pleural spaces: Moderate volume right pleural effusion. Negative for pneumothorax. Heart/Mediastinum: Unremarkable. No cardiomegaly. Bones/joints: Unremarkable. Gastrointestinal tract: Nonspecific air lucency under the diaphragm. Most likely distended bowel but cannot confidently exclude pneumoperitoneum. XR/XR chest 1V portable [id number] IMPRESSION: 1. The endotracheal tube is above the thoracic inlet. Recommend advancing the tube about 5 cm. 2. Right pleural effusion larger than prior. 3. Pneumoperitoneum is not radiographically excluded. Recommend correlation with dedicated abdominal radiography.
--- NOTE | 2021-05-02 01:34 | ECG_ITS ---
[facility] Test Date: 2021-05-02 Pat Name: Almtia Mckinley Department: Room: Gender: Female Belting Inspector: : 1955 Requested By: Joon Perez Order Number: [id number] Viridiana MD: Nate Kennedy M.D. Measurements Intervals [place] Rate: 137 P: 103 IN: 183 QRS: -4 QRSD: 72 T: 0 QT: 323 QTc: 489 Interpretive Statements SINUS TACHYCARDIA LOW QRS VOLTAGE IN EXTREMITY LEADS [QRS DEFLECTION < 0.5 mV IN LIMB LEADS] MINIMAL ST DEPRESSION [0.025+ mV ST DEPRESSION] Nonspecific T wave changes ABNORMAL RHYTHM ECG Compared to ECG 03/13/2021 16:20:11 ST (T wave) deviation now present Myocardial infarct finding no longer present Electronically Signed On 05-02-2021 19:16:33 CDT by Nate Kennedy M.D. [id number]
--- NOTE | 2021-05-02 01:36 | ED_ITS ---
HPI - SOB/Dyspnea General: Chief Complaint: Shortness of Breath/Dyspnea Stated Complaint: RESP. DISTRESS Time Seen by Provider: 05/02/21 01:33 Source: patient and EMS Mode of arrival: EMS Limitations: no limitations History of Present Illness: HPI Narrative: 65-year-old female who brought in by EMS [facility]. [facility] was complaint abdominal pain along with shortness of breath when EMS arrived patient's pulse ox was in the 60s on room air. They state that they placed her on oxygen in route she became increasingly shortness of breath and hypoxic I asked her if she wanted to be intubated and she shook her head yes they did perform RSI and intubated patient in the field. She has had no known fever patient is currently sedated and paralyzed. She had a recent admission here for sepsis from wounds to her lower extremities has had a recent hip fractu re as well Review of Systems General: Reports: ROS unobtainable due to medical condition PFSH ED PFSH: Medical History Anxiety disorder Complete tear of right rotator cuff (~11/2020) COVID-19 DJD of right AC (acromioclavicular) joint GERD (gastroesophageal reflux disease) High anion gap metabolic acidosis History of alcohol dependence Hyperlipidemia Hypertension Hyperthyroidism Ileocolic intussusception Intertrochanteric fracture of left hip Macrocytic anemia Major depressive disorder Moderate protein-calorie malnutrition Refeeding syndrome Sarcoidosis diagnosis per available outside records, with patient stating onset in , details unknown, never put on specific treatment per report Type 2 diabetes mellitus UTI due to extended-spectrum beta lactamase (ESBL) producing Escherichia coli Vulvar carcinoma Surgical History History of carpal tunnel release History of gastric bypass Family History Other Cancer Social History Smoking and tobacco status: former smoker Alcohol intake: former Number of children: 0 Physical Exam Const: COMMON NORMALS: apparent distress and negative for patient oriented x3 GENERAL APPEARANCE: ill appearing HENMT: COMMON NORMALS: normocephalic and atraumatic HEAD & SCALP: normocephalic and atraumatic Eye: COMMON NORMALS: conjunctivae normal and no scleral icterus CONJUNCTIVA: Yes conjunctivae normal Neck/C-Spine: COMMON NORMALS: full ROM and supple Chest: COMMONS NORMALS: normal inspection of the chest Resp: OTHER: Rales bilaterally patient is intubated at this time Cardio: COMMON NORMALS: regular rhythm RATE: tachycardic RHYTHM: regular rhythm GI: INSPECTION: Yes normal to inspection AUSCULTATION: Yes normoactive bowel sounds Extremity: NARRATIVE EXTREMITY EXAM: Multiple pressure wounds to lower extremity appears to be healing well with no secondary infection Neuro: COMMON NORMALS: negative for patient oriented x3 Psych: COMMON NORMALS: negative for mental status grossly normal Procedures Central Line Placement Right IJ: Time Out Performed: Yes Patient Placed on Monitor/Pulse Ox: Yes MD Prep: mask, gown and gloves Central Line Prep: Chlorhexidine scrub Local Anesthetic: lidocaine 1% Amount of anesthesia used (mL): 3 Ultrasound Used for Placement: Yes Central Line Lumen Inserted: triple Post Procedure: sutured in place, good blood return, all ports aspirated, flushed, capped and sterile dressing applied Post Procedure X-Ray: tip of catheter in good position and no pneumothorax seen Patient Tolerated Procedure: well Complications: none Course Vital Signs: Vital signs: Vital Signs Pulse Rate 144 H 05/02/21 01:28 Respiratory Rate 14 05/02/21 02:50 Blood Pressure 135/89 05/02/21 01:28 Pulse Oximetry 100 05/02/21 01:28 MDM - SOB/Dyspnea Medical Decision Making Patient presents here from [facility] she had abdominal pain at [facility] had respiratory failure on the way here and was intubated on the way here. CT scan here did show large bowel perforation does have an elevated lactate patient given IV antibiotics she also became hypotensive central line was started patient started on Levophed patient is being taken to the OR by Dr. Avery. Lab Data : 05/02/21 01:38 05/02/21 01:38 Labs/Radiology: Radiology Impressions Abdomen/Pelvis CT 05/02/21 02:35 IMPRESSION: 1. Large pneumoperitoneum throughout the anterior portion of the peritoneal cavity consistent with bowel perforation. 2. Interval appearance of free fluid the right pericolic gutter and pelvis consistent with bowel perforation. 3. Continued gastric bypass surgery. 4. Enteric tube tip in the stomach. 5. Possible bowel perforation in the right anterior wall of the stomach, axial series 2, images 20-21. 6. Voss balloon catheter in the urinary bladder. 7. Stable anasarca consistent with right heart failure versus hypoproteinemia versus renal failure. Laboratory Results WBC 15.1 10^3/uL (4.0-10.0) H 05/02/21 01:38 RBC 3.11 10^6/uL (4.1-5.3) L 05/02/21 01:38 Hgb 10.0 g/dL (11.5-15.3) L 05/02/21 01:38 Hct 31.4 % (37.0-47.0) L 05/02/21 01:38 MCV 101.0 fl (81-99) H 05/02/21 01:38 MCH 32.2 pg (28.0-34.0) 05/02/21 01:38 MCHC 31.8 g/dL (30.0-36.0) 05/02/21 01:38 RDW 19.7 % (12.1-15.1) H 05/02/21 01:38 Plt Count 206 10^3/cmm (130-400) 05/02/21 01:38 MPV 11.3 fL (7.4-10.4) H 05/02/21 01:38 Neut % (Auto) 86.8 % 05/02/21 01:38 Lymph % (Auto) 10.8 % 05/02/21 01:38 Bartholomew % (Auto) 1.7 % 05/02/21 01:38 Eos % (Auto) 0.0 % 05/02/21 01:38 Baso % (Auto) 0.4 % 05/02/21 01:38 Neut # (Auto) 13.08 10^3/uL (1.8-7.7) H 05/02/21 01:38 Lymph # (Auto) 1.6 10^3/uL (0.8-4.8) 05/02/21 01:38 Bartholomew # (Auto) 0.3 10^3/uL (0.2-0.9) 05/02/21 01:38 Eos # (Auto) 0.0 10^3/uL (0.0-0.8) 05/02/21 01:38 Baso # (Auto) 0.1 10^3/uL (0.0-0.1) 05/02/21 01:38 Nucleated RBC % (auto) 0 % 05/02/21 01:38 Nucleated RBCs # 0.0 /100WBC 05/02/21 01:38 Sodium 136 mmol/L (136-145) 05/02/21 01:38 Potassium 3.7 mmol/L (3.5-5.1) 05/02/21 01:38 Chloride 100 mmol/L (98-107) 05/02/21 01:38 Carbon Dioxide 22 mmol/L (22-29) 05/02/21 01:38 Anion Gap 17.7 (5-19) 05/02/21 01:38 BUN 8 mg/dL (8-23) 05/02/21 01:38 Creatinine 0.6 mg/dL (0.5-0.9) 05/02/21 01:38 GFR Calculation 100.3 mL/min (90-130) 05/02/21 01:38 Glucose 299 mg/dL (65-115) H 05/02/21 01:38 Calculated Osmolality 291 mOsm/kg (285-295) 05/02/21 01:38 Lactic Acid 5.9 mmol/L (0.5-2.2) H* 05/02/21 01:38 Calcium 8.4 mg/dL (8.5-10.5) L 05/02/21 01:38 Magnesium 1.5 mg/dL (1.7-2.3) L 05/02/21 01:38 Total Bilirubin 1.0 mg/dL (0.15-1.2) 05/02/21 01:38 AST 14 U/L (0-32) 05/02/21 01:38 ALT 16 U/L (0-33) 05/02/21 01:38 Alkaline Phosphatase 101 IU/L (35-105) 05/02/21 01:38 Troponin T Baseline 56 ng/L (0-10) H 05/02/21 01:38 NT-Pro-B Natriuret Pep 3792 pg/mL (0-125) H 05/02/21 01:38 Total Protein 4.2 g/dL (6.6-8.7) L 05/02/21 01:38 Albumin 1.6 g/dL (3.5-5.2) L 05/02/21 01:38 Globulin 2.6 g/dL (1.3-4.6) 05/02/21 01:38 Urine Color Dark yellow (Yellow) 05/02/21 01:52 Urine Appearance Sl hazy (CLEAR) 05/02/21 01:52 Urine pH 5 (5-7) 05/02/21 01:52 Ur Specific [place] 1.020 (1.005-1.030) 05/02/21 01:52 Urine Protein 1+ (Negative) H 05/02/21 01:52 Urine Glucose (UA) Norm (Normal) 05/02/21 01:52 Urine Ketones Negative (Negative) 05/02/21 01:52 Urine Blood 2+ (Negative) H 05/02/21 01:52 Urine Nitrate Negative (Negative) 05/02/21 01:52 Urine Bilirubin 1+ (Negative) H 05/02/21 01:52 Urine Urobilinogen 1 mg/dL (Negative) H 05/02/21 01:52 Ur Leukocyte Esterase 2+ (Negative) H 05/02/21 01:52 Urine RBC 0-4 /hpf (0-2) H 05/02/21 01:52 Urine WBC 15-25 /hpf (0-5) H 05/02/21 01:52 Ur Squamous Epith Cells 0-4 /hpf (0-5) H 05/02/21 01:52 Amorphous Sediment Not Reportable 05/02/21 01:52 Urine Bacteria Trace /hpf (NONE) 05/02/21 01:52 Urine Yeast 4+ /hpf H 05/02/21 01:52 EKG Data EKG 1: I personally reviewed and interpreted this EKG as follows: EKG Interpretation Date: 05/02/21 EKG interpretation time: 01:49 Interpretation: sinus tach hr [address] or t wave abnormalities qrs 72 qtc 403 Critical Care Time Critical Care Time: Critical Care Time: Yes Total Critical Care Time: 45 Attestation: The high probability of a clinically significant, sudden or life threatening deterioration of the patient's resp system(s) required my full and direct attention, intervention and personal management. The critical care time is as shown. This time is in addition to time spent performing any reported procedures but includes the following: [x] Data and vital sign review and interpretation [x] Patient assessment, examination and intervention [x] Documentation [x] Medication orders and management Discharge Plan Discharge Patient Disposition: Admitted As Inpatient Clinical Impression: Bowel perforation, Respiratory failure Condition: Stable Coding Level of Care Code ED Supervisor Multifocal Lens for Chg Fwd Exam Comprehensive
[2021-05-02 01:47] LABS: Basophils # 0.1 10^3/uL (0.0-0.1); Basophils % 0.4 %; Hematocrit 31.4 % (37.0-47.0); Lymphocytes # 1.6 10^3/uL (0.8-4.8); Lymphocytes % 10.8 %; Mean Corpuscular HGB Conc 31.8 g/dL (30.0-36.0); Mean Corpuscular Hemoglobin 32.2 pg (28.0-34.0); Mean Platelet Volume 11.3 fL (7.4-10.4); Monocytes # 0.3 10^3/uL (0.2-0.9); Monocytes % 1.7 %; Neutrophils # 13.08 10^3/uL (1.8-7.7); Neutrophils % 86.8 %; Nucleated Red Blood Cells % 0 %; Platelet Count 206 10^3/cmm (130-400); Red Blood Count 3.11 10^6/uL (4.1-5.3); Red Cell Distribution Width 19.7 % (12.1-15.1); White Blood Count 15.1 10^3/uL (4.0-10.0)
--- NOTE | 2021-05-02 01:56 | XRR_ITS ---
PROCEDURE INFORMATION: Exam: XR Chest Exam date and time: 05/02/2021 12:58 AM Age: 65 years old Clinical indication: Device placement; Ett placement (vent status); Patient HX: Check S/P advancement of et tube. ; Additional info: Et tube adjustment TECHNIQUE: Imaging protocol: XR of the chest. Views: 1 view. COMPARISON: CR XR chest 1V portable [id number] 05/02/2021 12:29 AM FINDINGS: Tubes, catheters and devices: Endotracheal tube is 2.8 cm above shari in good position. Lungs: Calcified granuloma at left lung base. Pleural spaces: Right pleural effusion is suspected. Heart/Mediastinum: Unremarkable. No cardiomegaly. Bones/joints: Unremarkable. Intraperitoneal space: Right upper quadrant surgical clips. Pneumoperitoneum suspected. XR/XR chest 1V portable [id number] IMPRESSION: 1. Pneumoperitoneum suspected. Suspicious finding for underlying bowel perforation. 2. Satisfactory endotracheal tube position.
[2021-05-02] MEDS: sodium chloride 0.9% 1,000 ML 999 ML IV ×2 (02:08→03:36)
[2021-05-02] MEDS: piperacillin-tazobactam 4.5 GM in sodium chloride 0.9% (plus) 50 ML IV (02:08)
[2021-05-02 02:15] LABS: Troponin(5th) Baseline 56 ng/L (0-10)
[2021-05-02 02:15] LABS: Add Urine Culture? Yes; Add Urine Microscopic? YES; Bacteria Urine TRACE /hpf; Bilirubin Urine 1+ (Negative); Blood Urine 2+ (Negative); Glucose Urine UA Norm (Normal); Ketones Urine Negative (Negative); Leukocyte Esterase Urine 2+ (Negative); Nitrate Urine Negative (Negative); Protein Urine 1+ (Negative); RBC Urine 0-4 /hpf (0-2); Squamous Epithelial Cell Urine 0-4 /hpf (0-5); Urine Appearance SL Hazy (CLEAR); Urine Color Dark Yellow (Yellow); Urobilinogen Urine 1 mg/dL (Negative); WBC Urine 15-25 /hpf (0-5); pH Urine 5 (5-7)
[2021-05-02 02:20] LABS: Alanine Aminotransferase 16 U/L (0-33); Albumin Level 1.6 g/dL (3.5-5.2); Alkaline Phosphatase 101 IU/L (35-105); Anion Gap 17.7 (5-19); Aspartate Amino Transferase 14 U/L (0-32); Blood Urea Nitrogen 8 mg/dL (8-23); Calcium 8.4 mg/dL (8.5-10.5); Carbon Dioxide 22 mmol/L (22-29); Chloride 100 mmol/L (98-107); Creatinine Clr Calc Pharmacy 62.9102; Globulin 2.6 g/dL (1.3-4.6); Glomerular Filtration Rate 100.3 mL/min (90-130); Glucose 299 mg/dL (65-115); Magnesium 1.5 mg/dL (1.7-2.3); Osmolality Calculated 291 mOsm/kg (285-295); Potassium 3.7 mmol/L (3.5-5.1); Sodium 136 mmol/L (136-145); Total Protein 4.2 g/dL (6.6-8.7)
[2021-05-02 02:22] LABS: ABG PH Result 7.49 (7.35-7.45); Base Excess ABG 1.8 mmol/L (-2.0-2.0); Blood Gas Allen Test Pos; Blood Gas Sample Site Radial, right; Blood Gas Sample Type Arterial; Oxygen Device VENT
[2021-05-02 02:22] LABS: Lactic Sepsis W/Reflex 5.9 mmol/L (0.5-2.2)
[2021-05-02 02:23] LABS: NT Pro B Type Natriuretic Pept 3792 pg/mL (0-125)
--- NOTE | 2021-05-02 02:35 | CTR_ITS ---
PROCEDURE INFORMATION: Exam: CT Abdomen And Pelvis Without Contrast Exam date and time: 05/02/2021 2:39 AM Age: 65 years old Clinical indication: Abdominal pain; Prior surgery; Surgery type: Gastric bypass. ; Patient HX: Concern for possible bowel perforation seen on cxr. Per custodial, patient had been C/O abd pain. TECHNIQUE: Imaging protocol: Computed tomography of the abdomen and pelvis without contrast. Radiation optimization: All CT scans at this facility use at least one of these dose optimization techniques: automated exposure control; mA and/or kV adjustment per patient size (includes targeted exams where dose is matched to clinical indication); or iterative reconstruction. COMPARISON: CT abdomen pelvis w con* [id number] 04/05/2021 5:23 PM RADIATION DOSE METRICS: Total DLP (mGy-cm): 835.07 FINDINGS: Tubes, catheters and devices: Enteric tube tip in the stomach. Heart: Severe calcified coronary artery disease. Stable anasarca consistent with right heart failure versus hypoproteinemia versus renal failure. Liver: Calcified hepatic granulomas. Gallbladder and bile ducts: Normal. No calcified stones. No ductal dilation. Pancreas: Normal. No ductal dilation. Spleen: Normal. No splenomegaly. Adrenal glands: Normal. No mass. Kidneys and ureters: Normal. No hydronephrosis. Stomach and bowel: Continued gastric bypass surgery. Possible bowel perforation in the right anterior wall of the stomach, axial series 2, images 20-21. Appendix: No evidence of appendicitis. Intraperitoneal space: Large pneumoperitoneum throughout the anterior portion of the peritoneal cavity consistent with bowel perforation. Interval appearance of free fluid the right pericolic gutter and pelvis consistent with bowel perforation. Vasculature: Unremarkable. No abdominal aortic aneurysm. Lymph nodes: Calcified left hilar nodes and/or mediastinal nodes and/or lung granulomas consistent with old granulomatous disease. Urinary bladder: Voss balloon catheter in the urinary bladder. Reproductive: Unremarkable as visualized. Bones/joints: Metallic fixation of the left hip with metallic artifact. Soft tissues: See Heart finding. CT/CT abdomen pelvis wo con [id number] IMPRESSION: 1. Large pneumoperitoneum throughout the anterior portion of the peritoneal cavity consistent with bowel perforation. 2. Interval appearance of free fluid the right pericolic gutter and pelvis consistent with bowel perforation. 3. Continued gastric bypass surgery. 4. Enteric tube tip in the stomach. 5. Possible bowel perforation in the right anterior wall of the stomach, axial series 2, images 20-21. 6. Voss balloon catheter in the urinary bladder. 7. Stable anasarca consistent with right heart failure versus hypoproteinemia versus renal failure.
--- NOTE | 2021-05-02 03:24 | XRR_ITS ---
PROCEDURE INFORMATION: Exam: XR Chest Exam date and time: 05/02/2021 2:27 AM Age: 65 years old Clinical indication: Other vascular access device placement or adjustment; Central line, non-tunnelled; Patient HX: Check S/P central line placement. Og tube placed since last cxr. TECHNIQUE: Imaging protocol: XR of the chest. Views: 1 view. COMPARISON: CR (CHEST, ) 05/02/2021 12:58 AM FINDINGS: Tubes, catheters and devices: Stable endotracheal tube. Right IJ catheter tip over the proximal right atrium. Enteric tube tip is beyond the proximal portion of the stomach and is not seen because it is below the inferior margin of the film. Lungs: Stable left calcified hilar nodes and/or mediastinal nodes and/or lung nodules consistent with old granulomatous disease. Pleural spaces: Unremarkable. No pleural effusion. No pneumothorax. Heart/Mediastinum: Unremarkable. No cardiomegaly. Bones/joints: Unremarkable. XR/XR chest 1V portable [id number] IMPRESSION: 1. Stable endotracheal tube. 2. Right IJ catheter tip over the proximal right atrium. 3. Enteric tube tip is beyond the proximal portion of the stomach and is not seen because it is below the inferior margin of the film.
[2021-05-02 03:27] LABS: Reflex Lactate Order REFLEX LACTIC ORDERD
[2021-05-02] MEDS: vancomycin 1,000 MG in sodium chloride 0.9% 250 ML 250 MG IV ×2 (03:36→14:38)
--- NOTE | 2021-05-02 03:37 | P.CONIM_ITS ---
Providers/Reason For Consult Consulting Physician/Specialty*: General Surgery Santosh Avery MD Reason for Consult*: Perforated viscus Attending Physician: Santosh Avery MD Primary Care Provider: Geeta AndersP-C History of Present Illness History of Present Illness Almita Mckinley is a 65 year old female who apparently has been a long-term patient ever since January when she broke her hip and had surgery. She has been very slowly recover and has been very weak. snf staff apparently at some point realized the patient was either complaining of pain and/or was getting more unresponsive this evening. She came to the hospital and ended up being intubated due to her mental status. A CAT scan showed pneumoperitoneum. Her tells me that she had gastric bypass surgery in 2016, and has not been the same since. He says that she cannot eat normally and has suffered from some malnutrition. She has no known history of peptic ulcer disease. It does not appear that she is taking excessive NSAIDs. The patient has been admitted for multiple reasons since her hip fracture was repaired in January. Most recently, earlier this month she had the debridement of multiple decubitus ulcers by Dr. Cuellar. Review of Systems General: Reports: ROS unobtainable due to endotracheal tube Medications/Allergies Home Medications Medication Instructions Recorded Confirmed Last Taken Type biotin 10,000 mcg capsule 10,000 mcg PO DAILY 04/03/20 04/18/21 04/05/21 08:00 History calcium citrate 315 mg-vitamin D3 1 tab PO DAILY 04/03/20 04/18/21 04/05/21 08:00 History 5 mcg (200 unit) tablet (Calcium Citrate + D) coenzyme Q10 10 mg capsule (Co 10 mg PO TID 04/03/20 04/18/21 04/05/21 08:00 History Q-10) fluticasone propionate 50 1 spray INTRANASAL DAILY 04/03/20 04/18/21 04/05/21 08:00 History mcg/actuation nasal spray,suspension (Allergy Relief (fluticasone)) pantoprazole 40 mg tablet,delayed 40 mg PO DAILY 04/03/20 04/18/21 04/05/21 08:00 History release simvastatin 40 mg tablet 40 mg PO DAILY 04/03/20 04/18/21 04/05/21 08:00 History albuterol sulfate 90 mcg/actuation 2 puff INHALATION QID PRN 01/18/21 04/18/21 Unknown History aerosol inhaler meclizine 25 mg tablet 25 mg PO TID PRN 01/18/21 04/18/21 Unknown History quetiapine 25 mg tablet (Seroquel) 12.5 mg PO BID 01/18/21 04/18/21 04/05/21 08:00 History venlafaxine 75 mg capsule,extended 75 mg PO DAILY 01/18/21 04/18/21 04/05/21 08:00 History release 24 hr clonazepam 1 mg tablet 0.5 mg PO BID PRN #0 tab 01/30/21 04/18/21 01/17/21 Rx ferrous sulfate 325 mg (65 mg 325 mg PO EVERY OTHER DAY #90 tab 01/30/21 04/18/21 04/05/21 08:00 Rx iron) tablet,delayed release thiamine mononitrate (vit B1) 100 100 mg PO DAILY #90 tab 01/30/21 04/18/21 04/05/21 08:00 Rx mg tablet (Vitamin B-1 (mononitrate)) fluticasone furoate 200 1 ea INHALATION DAILY 03/13/21 04/18/21 04/05/21 08:00 History mcg-vilanterol 25 mcg/dose inhalation powder (Breo Ellipta) furosemide 20 mg tablet 20 mg PO DAILY PRN #0 tab 03/21/21 04/18/21 03/12/21 Rx metoprolol tartrate 25 mg tablet 12.5 mg PO BID@0900,2100 #180 tab 03/21/21 04/18/21 04/05/21 08:00 Rx sitagliptin 100 mg tablet (Januvia) 100 mg PO DAILY #30 tab 03/21/21 04/18/21 04/05/21 08:00 Rx multivitamin 1 tab PO DAILY 03/23/21 04/18/21 04/05/21 08:00 History flash glucose scanning reader 04/05/21 04/18/21 Unknown History (FreeStyle Swathi 14 Day [place]) aspirin 81 mg tablet,delayed 81 mg PO DAILY #30 tab 04/14/21 04/18/21 Unknown Rx release (Adult Aspirin Regimen) Allergies Allergy/AdvReac Type Severity Reaction Status Date / Time No Known Allergies Allergy Verified 04/13/21 10:39 Current Medications Generic Name Dose Route Start Last Admin Trade Name Winstonq PRN Reason Stop Dose Admin Fentanyl 2,500 mcg/ Sodium 250 mls @ 0 mls/hr 05/02/21 01:45 05/02/21 02:09 Chloride IV 50 mcg/hr .Q0M MACK 5 mls/hr Administration Protocol Per Protocol PFSH Acute PFSH: Medical History (Updated 05/02/21 @ 03:33 by Joon Perez MD) Anasarca Anxiety disorder Complete tear of right rotator cuff (~11/2020) COVID-19 DJD of right AC (acromioclavicular) joint GERD (gastroesophageal reflux disease) High anion gap metabolic acidosis History of alcohol dependence Hyperlipidemia Hypertension Hyperthyroidism Hypokalemia Hypotension Ileocolic intussusception Intertrochanteric fracture of left hip Lactic acidosis Macrocytic anemia Major depressive disorder Moderate protein-calorie malnutrition Physical deconditioning Pressure injury, unstageable, with eschar Refeeding syndrome Sarcoidosis diagnosis per available outside records, with patient stating onset in , details unknown, never put on specific treatment per report Sepsis Thrombocytopenia Type 2 diabetes mellitus UTI due to extended-spectrum beta lactamase (ESBL) producing Escherichia coli Vulvar carcinoma Surgical History (Updated 05/02/21 @ 03:46 by Santosh Avery MD) History of carpal tunnel release History of gastric bypass [place] 2015 History of hip surgery left Family History Other Cancer Social History Smoking and tobacco status: former smoker Alcohol intake: former Number of children: 0 Vitals/I&O/Wt Last Vital Signs Pulse 144 H 05/02/21 01:28 Resp 14 05/02/21 02:50 BP 135/89 05/02/21 01:28 Pulse Ox 100 05/02/21 01:28 Weight last 48 hrs Weight 140 lb Physical Exam Narrative: The patient was encountered in her room in the emergency department. She is intubated, in Trendelenburg position. She is hypotensive. Breath sounds sound equal. The heart is regular. The abdomen is moderately distended with some firmness but certainly is not tense. Data : 05/02/21 01:38 05/02/21 01:38 Micro: Microbiology 05/02/21 01:57 Blood Culture - Preliminary Blood SPECIMEN COLLECTED 05/02/21 01:38 Blood Culture - Preliminary Blood SPECIMEN COLLECTED CT Abd/Pel: Radiologist's impression: CT abdomen/pelvis 05/02/2021 IMPRESSION: 1. Large pneumoperitoneum throughout the anterior portion of the peritoneal cavity consistent with bowel perforation. 2. Interval appearance of free fluid the right pericolic gutter and pelvis consistent with bowel perforation. 3. Continued gastric bypass surgery. 4. Enteric tube tip in the stomach. 5. Possible bowel perforation in the right anterior wall of the stomach, axial series 2, images 20-21. 6. Voss balloon catheter in the urinary bladder. 7. Stable anasarca consistent with right heart failure versus hypoproteinemia versus renal failure. A&P Assessment and plan (1) Bowel perforation: CAT scan reviewed. The source of this perforation is not entirely clear but I suspect an upper GI source is most likely. I discussed the situation with the patient's . I told him that I do not do gastric bypasses or revisions but she is clearly too unstable for transfer anywhere else. I told him we would do our best and would surgically do what we could. He understands. He would like to proceed. We are going do take her urgently to the operating room for exploration. Status: Acute Consult Attestations Medical Necessity Statement: See admitting service's notation. Coding Level of Care Code Acute Bowling Alley Mechanic for Paola De Los Santos Diagnoses Bowel perforation K63.1
[2021-05-02] MEDS: propofol 1,000 MG/100 ML INJ 1.91 MG IV (03:38)
[2021-05-02 03:47] LABS: INR 2.02 (0.8-1.2)
[2021-05-02 04:01] LABS: Lactic Acid level (Lactate) 5.2 mmol/L (0.5-2.2)
[2021-05-02 04:03] LABS: Troponin 5 2HR 53.12 ng/L (0-10)
[2021-05-02 04:05] LABS: Troponin 5 2HR Delta -2.88 ABS# (0-10)
--- NOTE | 2021-05-02 04:08 | ANES.PREANE2 ---
Pre-Anesthetic Assessment Height/Weight: Height 1.6 m Weight 63.503 kg Pulse Resp BP Pulse Ox 101 H 14 77/62 98 05/02/21 03:40 05/02/21 03:40 05/02/21 03:40 05/02/21 03:40 Preop Diagnosis: decuvbitus ulcers Operation Date: 05/02/21 12:30 Proposed Procedures p Exploratory Laparotomy(Not Applicable) - Santosh Avery MD Familial anesthetic complications: None Last intake: unable to obtain Social hx et oh abuse Exam tachy, intubated and sedated, BP stable on levo gtt Airway Comments: Comments: unable to obtain CV/HEM Hypertension GI Gastroesophageal Reflux Disease bowel perforation Metabolic Hyperlipidemia lactic acidosis Anesthetic Plan ASA status: 4E Anesthesia: General Risk of > 500 ml blood loss (7ml/kg in children): No Medications/Allergies Home Medications Medication Instructions Recorded Confirmed Last Taken Type biotin 10,000 mcg capsule 10,000 mcg PO DAILY 04/03/20 04/18/21 04/05/21 08:00 History calcium citrate 315 mg-vitamin D3 1 tab PO DAILY 04/03/20 04/18/21 04/05/21 08:00 History 5 mcg (200 unit) tablet (Calcium Citrate + D) coenzyme Q10 10 mg capsule (Co 10 mg PO TID 04/03/20 04/18/21 04/05/21 08:00 History Q-10) fluticasone propionate 50 1 spray INTRANASAL DAILY 04/03/20 04/18/21 04/05/21 08:00 History mcg/actuation nasal spray,suspension (Allergy Relief (fluticasone)) pantoprazole 40 mg tablet,delayed 40 mg PO DAILY 04/03/20 04/18/21 04/05/21 08:00 History release simvastatin 40 mg tablet 40 mg PO DAILY 04/03/20 04/18/21 04/05/21 08:00 History albuterol sulfate 90 mcg/actuation 2 puff INHALATION QID PRN 01/18/21 04/18/21 Unknown History aerosol inhaler meclizine 25 mg tablet 25 mg PO TID PRN 01/18/21 04/18/21 Unknown History quetiapine 25 mg tablet (Seroquel) 12.5 mg PO BID 01/18/21 04/18/21 04/05/21 08:00 History venlafaxine 75 mg capsule,extended 75 mg PO DAILY 01/18/21 04/18/21 04/05/21 08:00 History release 24 hr clonazepam 1 mg tablet 0.5 mg PO BID PRN #0 tab 01/30/21 04/18/21 01/17/21 Rx ferrous sulfate 325 mg (65 mg 325 mg PO EVERY OTHER DAY #90 tab 01/30/21 04/18/21 04/05/21 08:00 Rx iron) tablet,delayed release thiamine mononitrate (vit B1) 100 100 mg PO DAILY #90 tab 01/30/21 04/18/21 04/05/21 08:00 Rx mg tablet (Vitamin B-1 (mononitrate)) fluticasone furoate 200 1 ea INHALATION DAILY 03/13/21 04/18/21 04/05/21 08:00 History mcg-vilanterol 25 mcg/dose inhalation powder (Breo Ellipta) furosemide 20 mg tablet 20 mg PO DAILY PRN #0 tab 03/21/21 04/18/21 03/12/21 Rx metoprolol tartrate 25 mg tablet 12.5 mg PO BID@0900,2100 #180 tab 03/21/21 04/18/21 04/05/21 08:00 Rx sitagliptin 100 mg tablet (Januvia) 100 mg PO DAILY #30 tab 03/21/21 04/18/21 04/05/21 08:00 Rx multivitamin 1 tab PO DAILY 03/23/21 04/18/21 04/05/21 08:00 History flash glucose scanning reader 04/05/21 04/18/21 Unknown History (FreeStyle Swathi 14 Day [place]) aspirin 81 mg tablet,delayed 81 mg PO DAILY #30 tab 04/14/21 04/18/21 Unknown Rx release (Adult Aspirin Regimen) Allergies Allergy/AdvReac Type Severity Reaction Status Date / Time No Known Allergies Allergy Verified 04/13/21 10:39 Current Medications Generic Name Dose Route Start Last Admin Trade Name Freq PRN Reason Stop Dose Admin Fentanyl 2,500 mcg/ Sodium 250 mls @ 0 mls/hr 05/02/21 01:45 05/02/21 03:36 Chloride IV 1,000 mcg/hr .Q0M MACK 100 mls/hr Titration Protocol Per Protocol Propofol 1,000 mg in 100 mls @ 0 mls/hr 05/02/21 03:00 05/02/21 03:57 Diprivan IV 20 mcg/kg/min .Q0M MACK 7.62 mls/hr Titration Protocol Per Protocol Norepinephrine Bitartrate 4 mg 254 mls @ 0 mls/hr 05/02/21 03:15 05/02/21 03:37 / Dextrose IV 8 mcg/min .Q0M MACK 30.48 mls/hr Administration Protocol Per Protocol [facility] Anesthesia Medical History (Updated 05/02/21 @ 03:33 by Joon Perez MD) Anasarca Anxiety disorder Complete tear of right rotator cuff (~11/2020) COVID-19 DJD of right AC (acromioclavicular) joint GERD (gastroesophageal reflux disease) High anion gap metabolic acidosis History of alcohol dependence Hyperlipidemia Hypertension Hyperthyroidism Hypokalemia Hypotension Ileocolic intussusception Intertrochanteric fracture of left hip Lactic acidosis Macrocytic anemia Major depressive disorder Moderate protein-calorie malnutrition Physical deconditioning Pressure injury, unstageable, with eschar Refeeding syndrome Sarcoidosis diagnosis per available outside records, with patient stating onset in , details unknown, never put on specific treatment per report Sepsis Thrombocytopenia Type 2 diabetes mellitus UTI due to extended-spectrum beta lactamase (ESBL) producing Escherichia coli Vulvar carcinoma Surgical History (Updated 05/02/21 @ 03:46 by Santosh Avery MD) History of carpal tunnel release History of gastric bypass [place] 2015 History of hip surgery left Family History Other Cancer Social History Smoking and tobacco status: former smoker Alcohol intake: former Number of children: 0 Data Anesthesia : 05/02/21 01:38 05/02/21 01:38 Short CBC 05/02/21 Range/Units 01:38 WBC 15.1 H (4.0-10.0) 10^3/uL Hgb 10.0 L (11.5-15.3) g/dL Hct 31.4 L (37.0-47.0) % MCV 101.0 H (81-99) fl Plt Count 206 (130-400) 10^3/cmm Neut % (Auto) 86.8 % Neut # (Auto) 13.08 H (1.8-7.7) 10^3/uL BMP 05/02/21 01:38 Sodium 136 Potassium 3.7 Chloride 100 Carbon Dioxide 22 BUN 8 Creatinine 0.6 Glucose 299 H Calcium 8.4 L Cardiac Enzymes 05/02/21 05/02/21 05/02/21 Range/Units 01:38 01:38 03:34 Troponin T Baseline 56 H (0-10) ng/L Troponin T 120 Minute 53.12 H (0-10) ng/L Delta Troponin T -2.88 L (0-10) ABS# NT-Pro-B Natriuret Pep 3792 H (0-125) pg/mL Liver Function 05/02/21 Range/Units 01:38 Total Bilirubin 1.0 (0.15-1.2) mg/dL AST 14 (0-32) U/L ALT 16 (0-33) U/L Alkaline Phosphatase 101 (35-105) IU/L Albumin 1.6 L (3.5-5.2) g/dL Urine 05/02/21 Range/Units 01:52 Urine Color Dark yellow (Yellow) Urine Appearance Sl hazy (CLEAR) Urine pH 5 (5-7) Ur Specific [place]ell 1.020 (1.005-1.030) Urine Protein 1+ H (Negative) Urine Glucose (UA) Norm (Normal) Urine Ketones Negative (Negative) Urine Nitrate Negative (Negative) Urine Bilirubin 1+ H (Negative) Ur Leukocyte Esterase 2+ H (Negative) Urine RBC 0-4 H (0-2) /hpf Urine WBC 15-25 H (0-5) /hpf Coags 05/02/21 03:34 PT 23.30 H INR 2.02 H Microbiology 05/02/21 01:57 Blood Culture - Preliminary Blood SPECIMEN COLLECTED 05/02/21 01:38 Blood Culture - Preliminary Blood SPECIMEN COLLECTED Cardiac Studies: Echocardiogram 04/05/21
[2021-05-02] MEDS: piperacillin-tazobactam 2.25 GM in sodium chloride 0.9% (plus) 50 ML IV (04:55)
--- NOTE | 2021-05-02 05:07 | PM.HP ---
Providers/Chief Complaint Primary Care Provider: Geeta Anders CIRCULATION WORKER-C Chief Complaint: RESP. DISTRESS History of Present Illness Almita Mckinley is a 65 year old female with a past medical history of noninsulin-dependent type 2 diabetes mellitus, history of left hip fracture, COVID-19 infection, refeeding syndrome, history of alcohol abuse, history of lactic acidosis, anxiety, depression, protein calorie malnutrition, history of decubitus ulcer, history of ESBL E. coli UTI, history of decubitus ulcer, recent history of ileocolonic intussusception, recent multiple hospital admissions for sepsis secondary to lower extremity cellulitis and ESBL E. coli UTI, requiring debridement, developed DIC requiring platelet and RBC transfusion,, also with a superficial venous thrombosis in the right cephalic vein who presents to [facility] for shortness of breath abdominal pain. She is currently at senior care facility, she had complaints of abdominal pain along with shortness of breath, pulse ox was 60s on room air, placed on oxygen, on route she became increasingly short of breath and hypoxic, she was intubated in the field. In the emergency room she was found to have a bowel perforation, lactic acidosis, respiratory failure she is placed on pressor therapies, central line in place, general surgery has been called, she is being taken immediately to the operating room. During my examination, she is intubated, sedated on pressors, propofol, Levophed, she is receiving bag mask ventilation as she is being taken to the operating room. is at bedside. She does have bilateral extremity 1+ pitting edema. Review of Systems General: Reports: ROS unobtainable due to medical condition and ROS unobtainable due to mental status Medications/Allergies Home Medications Medication Instructions Recorded Confirmed Last Taken Type biotin 10,000 mcg capsule 10,000 mcg PO DAILY 04/03/20 04/18/21 04/05/21 08:00 History calcium citrate 315 mg-vitamin D3 1 tab PO DAILY 04/03/20 04/18/21 04/05/21 08:00 History 5 mcg (200 unit) tablet (Calcium Citrate + D) coenzyme Q10 10 mg capsule (Co 10 mg PO TID 04/03/20 04/18/21 04/05/21 08:00 History Q-10) fluticasone propionate 50 1 spray INTRANASAL DAILY 04/03/20 04/18/21 04/05/21 08:00 History mcg/actuation nasal spray,suspension (Allergy Relief (fluticasone)) pantoprazole 40 mg tablet,delayed 40 mg PO DAILY 04/03/20 04/18/21 04/05/21 08:00 History release simvastatin 40 mg tablet 40 mg PO DAILY 04/03/20 04/18/21 04/05/21 08:00 History albuterol sulfate 90 mcg/actuation 2 puff INHALATION QID PRN 01/18/21 04/18/21 Unknown History aerosol inhaler meclizine 25 mg tablet 25 mg PO TID PRN 01/18/21 04/18/21 Unknown History quetiapine 25 mg tablet (Seroquel) 12.5 mg PO BID 01/18/21 04/18/21 04/05/21 08:00 History venlafaxine 75 mg capsule,extended 75 mg PO DAILY 01/18/21 04/18/21 04/05/21 08:00 History release 24 hr clonazepam 1 mg tablet 0.5 mg PO BID PRN #0 tab 01/30/21 04/18/21 01/17/21 Rx ferrous sulfate 325 mg (65 mg 325 mg PO EVERY OTHER DAY #90 tab 01/30/21 04/18/21 04/05/21 08:00 Rx iron) tablet,delayed release thiamine mononitrate (vit B1) 100 100 mg PO DAILY #90 tab 01/30/21 04/18/21 04/05/21 08:00 Rx mg tablet (Vitamin B-1 (mononitrate)) fluticasone furoate 200 1 ea INHALATION DAILY 03/13/21 04/18/21 04/05/21 08:00 History mcg-vilanterol 25 mcg/dose inhalation powder (Breo Ellipta) furosemide 20 mg tablet 20 mg PO DAILY PRN #0 tab 03/21/21 04/18/21 03/12/21 Rx metoprolol tartrate 25 mg tablet 12.5 mg PO BID@0900,2100 #180 tab 03/21/21 04/18/21 04/05/21 08:00 Rx sitagliptin 100 mg tablet (Januvia) 100 mg PO DAILY #30 tab 03/21/21 04/18/21 04/05/21 08:00 Rx multivitamin 1 tab PO DAILY 0204/18/21 04/05/21 08:00 History flash glucose scanning reader 04/05/21 04/18/21 Unknown History (FreeStyle Swathi 14 Day [place]) aspirin 81 mg tablet,delayed 81 mg PO DAILY #30 tab 04/14/21 04/18/21 Unknown Rx release (Adult Aspirin Regimen) Allergies Allergy/AdvReac Type Severity Reaction Status Date / Time No Known Allergies Allergy Verified 04/13/21 10:39 PFSH Acute PFSH: Medical History Anasarca Anxiety disorder Complete tear of right rotator cuff (~11/2020) COVID-19 DJD of right AC (acromioclavicular) joint GERD (gastroesophageal reflux disease) High anion gap metabolic acidosis History of alcohol dependence Hyperlipidemia Hypertension Hyperthyroidism Hypokalemia Hypotension Ileocolic intussusception Intertrochanteric fracture of left hip Lactic acidosis Macrocytic anemia Major depressive disorder Moderate protein-calorie malnutrition Physical deconditioning Pressure injury, unstageable, with eschar Refeeding syndrome Sarcoidosis diagnosis per available outside records, with patient stating onset in , details unknown, never put on specific treatment per report Sepsis Thrombocytopenia Type 2 diabetes mellitus UTI due to extended-spectrum beta lactamase (ESBL) producing Escherichia coli Vulvar carcinoma Surgical History History of carpal tunnel release History of gastric bypass [place] 2015 History of hip surgery left Family History Other Cancer Social History Smoking and tobacco status: former smoker Alcohol intake: former Number of children: 0 Vitals/I&O/Wt Last Vital Signs Pulse 109 H 05/02/21 04:35 Resp 14 05/02/21 04:35 BP 117/76 05/02/21 04:35 Pulse Ox 100 05/02/21 04:35 05/01/21 05/01/21 05/02/21 14:59 22:59 06:59 Intake Total 117.830 / 117.830 Balance 117.830 / 117.830 Weight last 48 hrs Weight 63.503 kg Physical Exam Const: COMMON NORMALS: no acute distress OTHER: Intubated, sedated HENMT: COMMON NORMALS: normocephalic HEAD & SCALP: normocephalic Neck/C-Spine: COMMON NORMALS: no JVD Resp: COMMON NORMALS: normal respiratory effort, No retractions, No use of accessory muscles and clear to auscultation bilaterally AUSCULTATION: crackles Cardio: COMMON NORMALS: no JVD, regular rate, regular rhythm, S1 normal heart sound present and S2 normal heart sound present RATE: regular rate RHYTHM: regular rhythm HEART SOUNDS: S1 normal heart sound present and S2 normal heart sound present GI: COMMON NORMALS: no masses INSPECTION: Yes abdominal distension AUSCULTATION: Yes Hypoactive bowel sounds present PALPATION: Yes Rigid due to palpation Extremity: NARRATIVE EXTREMITY EXAM: 1+ pitting edema bilateral lower extremities Neuro: COMMON NORMALS: patient oriented x3 Psych: COMMON NORMALS: mental status grossly normal Data : 05/02/21 01:38 05/02/21 01:38 Micro: Microbiology 05/02/21 01:57 Blood Culture - Preliminary Blood SPECIMEN COLLECTED 05/02/21 01:38 Blood Culture - Preliminary Blood SPECIMEN COLLECTED A&P Assessment and plan (1) Acute respiratory failure with hypoxia: Status: Acute (2) Septic shock: Status: Acute (3) Bowel perforation: Status: Acute (4) Decubitus ulcer: Status: Acute (5) Lactic acidosis: Status: Acute (6) NSTEMI (non-ST elevated myocardial infarction): Status: Acute (7) UTI (urinary tract infection): Status: Acute Plan Acute hypoxic respiratory failure -Does have bilateral pleural effusions, history of diastolic CHF. -Continue intubation, mechanical ventilation -Propofol, Versed for sedation -Maintain MAP greater than 65, continue Levophed -Albumin for hypoalbuminemia -Spontaneous breathing trials, minimize tidal volume, minimize FiO2 -We will diurese based on clinical progress -Full code -Start Lovenox for DVT prophylaxis 12 hours after surgery -Protonix for GI prophylaxis Septic shock -Secondary to bowel perforation, possible UTI, history of ESBL UTI -Currently on Levophed -Broad-spectrum antibiotic therapy vancomycin, switch to Primaxin -Possible UTI -Follow blood cultures, urine cultures, sputum cultures History of bilateral lower extremity cellulitis and wounds, continue to monitor, history of debridement on last hospitalization History of diastolic CHF, CT showed bilateral pleural effusions, echocardiogram showed grade 2 diastolic dysfunction EF 60%, no gross valvular abnormalities History of DIC, thrombocytopenia, continue to monitor History of pressure injury, chronic, continue to monitor History of anemia History of superficial venous thrombosis, right cephalic vein extending distally into the antecubital fossa, can consider anticoagulation based on clinical progress was on aspirin Anasarca from hypoalbuminemia Refeeding syndrome, protein calorie malnutrition, physical deconditioning Attestations Medical Necessity Statement*: Patient requires hospitalization for bowel perforation, lactic acidosis, acute respiratory failure, inpatient, greater than 2 midnights, ICU admission Coding Level of Care Code Acute Freelance Recruiter for g Fwd Exam Detailed Diagnoses Acute respiratory failure with hypoxia J96.01 Septic shock A41.9; R65.21 Bowel perforation K63.1 Decubitus ulcer L89.90 Lactic acidosis E87.2 NSTEMI (non-ST elevated myocardial infarction) I21.4 UTI (urinary tract infection) N39.0
--- NOTE | 2021-05-02 05:24 | PC.PHAR ---
Pharmacokinetic dosing service Date: 05/02/21 Time: 529 Objective: Patient: Almita Mckinley Floor: or Age: 65 yo Serum creatinine: 0.6 mg/dL Height: 63.0 Inches Weight (kg): 63.503 Diagnosis: Relevant medical/social history: Cultures and sensitivities: Other labs: Assessment: IBW (kg): 52.40 Dosing wt(kg): 63.503 Estimated Creatinine clearance (ml/min): 77.3 CRCL method: Cockcroft and Gault using ibw(default). Drug selected: Vancomycin Loading dose (mg): 0 Vd (liters): 57.2 (factor used: 0.9 L/kg) Ross (hr-1): 0.069 Half life (hrs): 10.05 Recommended dose: 1000 mg Interval: 12 hrs Infusion time (hrs): 1.5 Predicted peak (mcg/mL): 29.5 Predicted trough (mcg/mL): 14.29 Total body weight is being used for vancomycin dosing. Renal function is stable [ ] /unstable [ ] Recommendations: Give Vancomycin 1000 mg q 12 hrs with an expected Cpeak of 29.5 mcg/ml and an expected Ctrough of 14.29 mcg/ml Renal dosing of other antibiotics (review renal dosing of other medications and list guidelines here): Thank you for the consult, will continue to follow. Signature: Chrissy Perkins [facility]
--- NOTE | 2021-05-02 05:54 | P.OP_ITS ---
Operative Report Date of procedure: May 02, 2021 Pre-op diagnosis: Preop Diagnosis Perforated viscus. Post-op diagnosis: Disruption of gastric bypass. Procedure done: Exploratory laparotomy with repair of gastric bypass disruption. Pathology: None sent. Surgeon: General Surgery Santosh Avery MD Estimated blood loss: 10 mL. Procedure: The patient was brought to the operating room and was placed in a supine position on the operating room table. She had already been intubated in the emergency department. A Voss catheter and nasogastric tube were already in place, as well. General anesthesia was induced. The abdomen was prepped and draped in a sterile fashion. An upper midline incision was carried out. Cautery was used to divide the subcutaneous tissue and the midline fascia and the peritoneal cavity was entered. A significant amount of air escaped from the peritoneal cavity upon entrance The fluid in the upper abdomen was suggestive of gastric contents. Inspection quickly revealed that the patient had had a disruption of what appeared to be a full gastric bypass. This was at a staple line where the jejunum was attached to the gastric remnant. The upper abdomen was quickly but thoroughly irrigated. The nasogastric tube was positioned by anesthesia so that it was not close to the area of repair. The disruption was closed using multiple interrupted sutures of 2-0 Vicryl. A tongue of omentum was brought over the closure and was tied down. I then had anesthesia pump some air down the nasogastric tube and both the small gastric remnant and the efferent jejunum filled with air. There were no air leaks under a level of saline at the repair. The abdomen was then extensively irrigated with multiple liters of saline in all quadrants until all of the irrigant returned clear. A 19 [place] Islander fluted Seamus drain was passed just posterior to the repaired anastomosis into the lesser sac and was laid along the inferior edge of the liver to the right side. The drain had been brought out through a separate stab incision in the right upper quadrant where it was sewed at the skin with a suture of 2-0 silk. A final round of irrigation was carried out and no ongoing issues were seen. The midline fascia was closed using a looped suture of 0 PDS. Some internal inverted retention sutures of #1 PDS were also used in the closure. The subcutaneous tissue was irrigated and the skin was loosely approximated using skin elliott. A sterile dressing was placed over the wound and the patient was taken directly to the intensive care unit postoperatively.
--- NOTE | 2021-05-02 06:30 | PC.NURSE ---
Arrived From OR Patient arrived from surgery at 0616. Bilateral radial and pedal pulses dopplered upon arrival from surgery. Abdominal incision is covered with 4x4 gauze dressing-dry and intact at this time. MARIO drain surgically placed and patent. Upon arrival from surgery patient intubated and sedated. Fentanyl infusing at 100 mcg/hr, Propofol infusing at 20 mc/kg/min, Levophed infusing at 8 mcg/min through right IJ central line. Patient has several skin tears noted to bilateral arms and decub on right heel.
--- NOTE | 2021-05-02 06:33 | USCV_ITS ---
Almita Mckinley Age: 65 Gender: F : 1955 Exam Date: 05/02/2021 08:54 Ordering Phys: Haja Garza MD Technologist: GEMINI Exam Location: [facility] [place] Indication: RIGHT blue toe. Patient is on vent in ICU-7. She has multiple, open, weeping, decubitus ulcers on bilateral arms, legs, ankles, heels. For this reason, I was unable to obtain ankle pressures. Risk Factors: RIGHT blue toe. Patient is on vent in ICU-7. She has multiple, open, weeping, decubitus ulcers on bilateral arms, legs, ankles, heels. For this reason, I was unable to obtain ankle pressures. Previous Vascular Surgery: RIGHT LEFT BP: / BP: 108.0/ 65.00 0 Waveform Velocity (cm/s) Velocity (cm/s) Waveform Biphasic 126.0 Iliac Prox 159.8 Triphasic Biphasic 159.8 Iliac Mid 126.0 Triphasic Biphasic 180.5 Iliac Distal 154.1 Triphasic Biphasic TILLER MAN Biphasic 108.5 124.9 Biphasic 102.5 SFA Prox 117.0 Biphasic Biphasic 61.5 SFA Mid 80.2 Biphasic Biphasic 47.3 SFA Dist 85.4 Biphasic Biphasic 36.1 POP 69.2 Biphasic Biphasic 24.9 AUTOMOTIVE SALES REPRESENTATIVE 13.2 Biphasic N/A 0.0 DPA 7.0 Biphasic FINDINGS ABIs could not be obtained. On the right side, the iliac, femoral, popliteal and posterior tibial arteries were found to be patent. No flow was detected in the dorsalis pedis artery. Doppler flow velocities are within normal limits. On the left side the iliac, femoral, popliteal and the infrapopliteal vessels were found to be patent. However the flow in the dorsalis pedis and posterior tibial artery were found to be sluggish CONCLUSIONS 1. Patent iliac, femoral arteries bilaterally. 2. Diminished Doppler flow velocity in the popliteal and posterior tibial artery on the right side, suggestive of hemodynamically significant obstruction. Possible total occlusion of the dorsalis pedis artery on the right side. 3. Markedly diminished flow velocities in the posterior tibial and dorsalis pedis artery on the left side is suggestive of hemodynamically significant obstructive arterial disease in the infrapopliteal vessels on the left side. 4. ABIs could not be obtained. Consider CTA/peripheral angiogram to better evaluate the peripheral arteries, if clinically indicated Dr Nate Kennedy MD [facility] (Electronically Signed) Final Date: 03 May 2021 10:54 S
[2021-05-02 07:05] LABS: Basophils # 0.1 10^3/uL (0.0-0.1); Basophils % 0.5 %; Eosinophils # 0.4 10^3/uL (0.0-0.8); Eosinophils % 2.3 %; Hematocrit 29.2 % (37.0-47.0); Hemoglobin 9.5 g/dL (11.5-15.3); Lymphocytes # 1.5 10^3/uL (0.8-4.8); Lymphocytes % 8.9 %; Mean Corpuscular HGB Conc 32.5 g/dL (30.0-36.0); Mean Corpuscular Hemoglobin 32.9 pg (28.0-34.0); Mean Platelet Volume 11.6 fL (7.4-10.4); Monocytes # 0.4 10^3/uL (0.2-0.9); Monocytes % 2.1 %; Neutrophils # 14.41 10^3/uL (1.8-7.7); Neutrophils % 85.5 %; Nucleated Red Blood Cells % 0 %; Platelet Count 245 10^3/cmm (130-400); Red Blood Count 2.89 10^6/uL (4.1-5.3); Red Cell Distribution Width 19.6 % (12.1-15.1); White Blood Count 16.8 10^3/uL (4.0-10.0)
[2021-05-02] MEDS: magnesium sulfate premix 4 GM/100 ML PREMIX IV (07:17)
--- NOTE | 2021-05-02 07:34 | ECG_ITS ---
[facility] Test Date: 2021-05-02 Pat Name: Almita Mckinley Department: Room: ICU07 Gender: Female Start Up Specialist: : 1955 Requested By: Joon Perez Order Number: [id number] Viridiana MD: Nate Kennedy M.D. Measurements Intervals [place] Rate: 106 P: 56 CT: 126 QRS: -57 QRSD: 75 T: 240 QT: 343 QTc: 457 Interpretive Statements SINUS TACHYCARDIA LOW QRS VOLTAGE [QRS DEFLECTION < 0.5/1.0 mV IN LIMB/CHEST LEADS] LEFT ANTERIOR FASCICULAR BLOCK [QRS AXIS <= -45, QR IN I, RS IN II] Some nonspecific T wave changes ABNORMAL QRS-T ANGLE [QRS-T AXIS DIFFERENCE > 60] Compared to ECG 05/02/2021 01:49:43 Poor R wave progression. Left anterior fascicular block now present ST (T wave) deviation no longer present Electronically Signed On 05-02-2021 19:30:02 CDT by Nate Kennedy M.D. [id number]
[2021-05-02 07:36] LABS: INR 1.92 (0.8-1.2)
[2021-05-02 07:37] LABS: Fibrinogen 248 mg/dL (174-498); Partial Thromboplastin Time 49.2 SECONDS (23.9-36.7)
[2021-05-02 07:40] LABS: D Dimer 3.58 ug/mIFEU (0-0.59)
[2021-05-02 07:43] LABS: Troponin 5 6HR 56.69 ng/L (0-10)
[2021-05-02 07:44] LABS: Troponin 5 6HR Delta 0.69 ng/L (0-12)
[2021-05-02 08:04] LABS: Glucose Point of Care 247 mg/dL (70-110)
[2021-05-02 08:23] LABS: ABG PCO2 27.2 mmHg (35-45); ABG PH Result 7.52 (7.35-7.45); Arterial Blood Gas Hematocrit 28.8 % (37-47); Base Excess ABG -0.3 mmol/L (-2.0-2.0); Blood Gas Allen Test Pos; Blood Gas Sample Site Brachial, left; Blood Gas Sample Type Arterial; Oxygen Device VENT
[2021-05-02] MEDS: insulin lispro 100 unit/1 mL SUBCUT ×3 (09:13→17:49)
[2021-05-02] MEDS: pantoprazole 40 mg SDV IVP ×2 (09:13→19:40)
--- NOTE | 2021-05-02 09:49 | PM.MISC ---
Miscellaneous Note Note: Follow-up note Spoke in detail with her We discussed above septic shock Goals of care Criteria for extubation Patient was examined with the help of nurse She is intubated and sedated Levo running at 8 mics Patient is riding the vent Multiple staged skin ulcers without any signs of necrotic tissue that needs debridement Skin sloughing noted of her upper extremities Abdomen is nondistended, dressing in place Serosanguineous discharge in the drain Assisted bilateral breath sounds Plan Continue antibiotics N.p.o. Change CODE STATUS to DNR/DNI, detailed discussion with the in front of her ICU nurse Wean off levo, currently at 8 Once vasopressors are off we will do sedation vacation and check neurological status We will follow up with general surgery recommendations
[2021-05-02] MEDS: fluconazole premix 100 MG in empty flexible container 1 EACH 50 MG IV (09:55)
--- NOTE | 2021-05-02 10:26 | PC.PHAR ---
pt is from [facility] sent wrong med list for a jamaica mabry which was NOT ENTERED but then sent the correct med list for jamaica ashley meds entered are med[facility]
--- NOTE | 2021-05-02 10:49 | PC.CHAP ---
Pastoral Care Encounter/Spiritual Assessment Type of Contact [] Declined pin ball machine mechanic visit [] Patient/Family/Request visit [] Outpatient visit [] Follow-up visit [] Physician referral [] Code/Alert [x] Routine visit [] Staff referral [] Actively dying [] Patient sleeping [] Family support [] [] Out of room [] Palliative care [] [x] Receiving care in room [] Pre-surgical visit [] Trauma [] Long length of stay [x] ICU visit [] Other: Relational/Emotional Strength [] Patient feels connected with others/family/visitors/staff [] Distress [] Loneliness/isolation [] Abandonment Spirituality of Patient [] Person of Iliana [] Attends Yazidi of their [place] [] Believes in Prayer [] Reads Bible or Quaker materials [] There are Spiritual issues to be addressed Law Office Manager Interventions [x] Prayer [] Active listening [] Non-anxious presence [] Spiritual/emotional support [] Crisis/trauma care [] Spiritual counseling [] Bereavement support [] Provided bereavement packet [] Provided Bible/devotional materials [] Provided toy/stuffed animal, coloring book to patient or family member [] Provided Communion [] Anointing/[place] [] Salvation [x] Completed spiritual assessment [] Other: Impact on Illness or Injury [] Angry [] Fearful [] Anxious [] Often cries [] Exhaustion [] Unable to work [] Unable to attend taoism [] Unable to walk/stand [] Unable to read [] Unable to drive [] Unable to eat/drink [] Unable to sleep [] Unable to be with family [] Patient intubated [] Other: Summary Time spent with patient
[2021-05-02 12:14] LABS: Glucose Point of Care 272 mg/dL (70-110)
--- NOTE | 2021-05-02 12:27 | PC.NURSE ---
Rectal temp was 94.4. Sammy hugger applied.
[2021-05-02] MEDS: enoxaparin 40 mg/0.4 mL Syringe SUBCUT (17:13)
[2021-05-02 17:29] LABS: Glucose Point of Care 273 mg/dL (70-110)
[2021-05-02] MEDS: propofol 1,000 MG/100 ML INJ 5.72 MG IV (18:29)
[2021-05-02] MEDS: heparin drip 25,000 UNIT/500 ML PREMIX 22.86 UNIT IV (23:13)
[2021-05-02 23:27] LABS: Glucose Point of Care 228 mg/dL (70-110)
[2021-05-03] VITALS (69 sets, daily range): BP systolic 90–114; BP diastolic 52–69; PULSE 70–111; RESP 12–13; TEMP 35.7–36.2; O2SAT 95–100
[2021-05-03] MEDS: vancomycin 1,000 MG in sodium chloride 0.9% 250 ML 250 MG IV (03:46)
[2021-05-03 05:07] LABS: Blood Gas Allen Test Pos; Blood Gas Sample Site Radial, right; HCO3 ABG 26.3 mmol/L (22-26); Oxygen Device VENT
[2021-05-03 05:08] LABS: Arterial Blood Gas Hematocrit 29.6 % (37-47); Base Excess ABG 2.9 mmol/L (-2.0-2.0)
[2021-05-03 05:18] LABS: Glucose Point of Care 183 mg/dL (70-110)
[2021-05-03 05:33] LABS: INR 2.27 (0.8-1.2)
[2021-05-03 05:34] LABS: Lactic Sepsis W/Reflex 2.2 mmol/L (0.5-2.2)
[2021-05-03 05:44] LABS: Thyroid Stimulating Hormone 3.25 uIU/mL (0.27-4.20)
[2021-05-03 05:50] LABS: Creatine Phosphokinase 20 U/L (26-192); NT Pro B Type Natriuretic Pept 4706 pg/mL (0-125)
[2021-05-03 05:57] LABS: Alanine Aminotransferase 12 U/L (0-33); Albumin Level 1.5 g/dL (3.5-5.2); Alkaline Phosphatase 77 IU/L (35-105); Anion Gap 14.3 (5-19); Aspartate Amino Transferase 12 U/L (0-32); Blood Urea Nitrogen 13 mg/dL (8-23); C Reactive Protein 200.5 mg/L (0.0-4.9); Calcium 7.9 mg/dL (8.5-10.5); Carbon Dioxide 24 mmol/L (22-29); Chloride 105 mmol/L (98-107); Glomerular Filtration Rate 55.6 mL/min (90-130); Glucose 170 mg/dL (65-115); Magnesium 2.1 mg/dL (1.7-2.3); Osmolality Calculated 294 mOsm/kg (285-295); Phosphorus 3.8 mg/dL (2.5-4.5); Potassium 3.3 mmol/L (3.5-5.1); Sodium 140 mmol/L (136-145); Total Bilirubin 0.6 mg/dL (0.15-1.2); Total Protein 3.5 g/dL (6.6-8.7)
[2021-05-03 05:59] LABS: Partial Thromboplastin Time > 250.0 SECONDS (23.9-36.7)
[2021-05-03 06:00] LABS: Creatinine Clr Calc Pharmacy 50.3281
[2021-05-03 06:04] LABS: Basophils % 0.2 %; Hematocrit 23.4 % (37.0-47.0); Hemoglobin 7.5 g/dL (11.5-15.3); Lymphocytes # 3.3 10^3/uL (0.8-4.8); Lymphocytes % 19.1 %; Mean Corpuscular HGB Conc 32.1 g/dL (30.0-36.0); Mean Corpuscular Hemoglobin 32.5 pg (28.0-34.0); Mean Corpuscular Volume 101.3 fl (81-99); Mean Platelet Volume 11.2 fL (7.4-10.4); Monocytes # 0.4 10^3/uL (0.2-0.9); Monocytes % 2.2 %; Neutrophils # 13.55 10^3/uL (1.8-7.7); Neutrophils % 77.8 %; Nucleated Red Blood Cells % 0 %; Platelet Count 181 10^3/cmm (130-400); Red Blood Count 2.31 10^6/uL (4.1-5.3); Red Cell Distribution Width 20.2 % (12.1-15.1); White Blood Count 17.4 10^3/uL (4.0-10.0)
[2021-05-03 06:19] LABS: Slide Review Slide Review Perform
[2021-05-03 06:41] LABS: Procalcitonin 16.88 ng/mL (0-0.5)
--- NOTE | 2021-05-03 07:00 | XRR_ITS ---
PROCEDURE INFORMATION: Exam: XR Chest Exam date and time: 05/03/2021 5:31 AM Age: 65 years old Clinical indication: Shortness of breath; Patient HX: PT on vent/follow up/sepsis; Additional info: SOB TECHNIQUE: Imaging protocol: XR of the chest. Views: 1 view. COMPARISON: CR (CHEST, ) 05/02/2021 2:27 AM FINDINGS: Tubes, catheters and devices: Endotracheal tube terminates approximately 4 cm above the shari. Enteric tube terminates in the region of the gastric cardia with side port in the region of the distal esophagus. Right IJ central venous catheter terminates in the region of the superior cavoatrial junction. Lungs: Similar calcified granuloma in the lower left lung. No focal airspace consolidation. Pleural spaces: Layering right pleural effusion, similar to prior. No pneumothorax. Heart/Mediastinum: Unremarkable. No cardiomegaly. Bones/joints: Unremarkable. XR/XR chest 1V portable [id number] IMPRESSION: 1. Similar layering right pleural effusion. 2. Endotracheal tube terminates approximately 4 cm above the shari. 3. Enteric tube terminates in the region of the gastric cardia with side port in the region of the distal esophagus.
[2021-05-03 07:09] LABS: Reflex Lactate Order REFLEX LACTIC ORDERD
[2021-05-03 08:23] LABS: Glucose Point of Care 157 mg/dL (70-110)
--- NOTE | 2021-05-03 08:24 | P.PN_ITS ---
Subjective Subjective: Patient remains in the ICU on a ventilator. It appears she is successfully being weaned, however. She now is on a heparin drip due to poor peripheral circulation. Vitals/I&O/Wt Last Vital Signs Temp 97.0 F L 05/03/21 04:00 Pulse 86 05/03/21 06:00 Resp 12 05/03/21 08:11 BP 104/57 05/03/21 04:30 Pulse Ox 100 05/03/21 08:11 05/02/21 05/03/21 05/03/21 22:59 06:59 14:59 Intake Total 802.92 / 2349.660 723.355 / 234.660 369.385 / 369.385 Output Total 350 / 350 Balance 802.92 / 1998. 373.355 / 1998. 369.385 / 369.385 Weight last 48 hrs Weight 140 lb Physical Exam Narrative: The midline dressing is intact. The Seamus drain is full of serosanguineous fluid. The patient's decubitus ulcers were looked at this morning and she does have some thin eschars over some of these. 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 The patient remains critically ill. Her has made her a DNR at this point. Continue current treatment. If the patient is able be weaned off the ventilator I have instructed nursing to remove her orogastric tube. I was under the impression this was a nasogastric tube in surgery, but I do not not want to have someone blindly pass any type of new gastric tube at this point given the recent gastric pouch repair. Status: Acute Attestations Medical Necessity Statement*: See admitting service's notation. Coding Level of Care Code Acute Sales And Marketing Administrator for [facility] Diagnoses Bowel perforation K63.1
[2021-05-03] MEDS: insulin lispro 100 unit/1 mL SUBCUT (08:56)
[2021-05-03] MEDS: propofol 1,000 MG/100 ML INJ 5.72 MG IV (08:56)
[2021-05-03] MEDS: pantoprazole 40 mg SDV IVP ×2 (08:58→19:20)
[2021-05-03] MEDS: fluconazole premix 100 MG in empty flexible container 1 EACH 50 MG IV (09:12)
[2021-05-03] MEDS: sodium chloride 0.9% (100 ml) 100 ML 50 ML (09:13)
[2021-05-03] MEDS: dexmedeTOMIDine 0.9 % NaCL 400 MCG/100 ML PREMIX IV (09:18)
--- NOTE | 2021-05-03 09:21 | PC.NURSE ---
MAR other delay related to care of other 2 pateints and starting transfusion.
--- NOTE | 2021-05-03 10:24 | PM.PN ---
Subjective Subjective: Overnight events noted, drop in hemoglobin, heparin stopped I am still waiting on arterial Doppler studies This morning her feet are not cyanotic Posterior tibial pulses palpable Wounds examined, Dr. Avery was presented on Today plan is to titrate off levo, turn off sedation, sedation vacation, wake her up today and see if we are able to extubate, Rediscuss goals of care with her Leukocytosis 17,000, hemoglobin 7.5 she is getting 1 unit PRBC FiO2 21% Procalcitonin 16 Vitals/I&O/Wt Last Vital Signs Temp 96.8 F L 05/03/21 09:10 Pulse 82 05/03/21 09:10 Resp 12 05/03/21 09:10 BP 105/55 05/03/21 09:10 Pulse Ox 100 05/03/21 08:49 05/02/21 05/03/21 05/03/21 22:59 06:59 14:59 Intake Total 802.92 / 1306.92 723.355 / 2030.275 395.444 / 395.444 Output Total 350 / 350 Balance 802.92 / 1306.92 373.355 / 1680.275 395.444 / 395.444 Weight last 48 hrs Weight 63.503 kg Physical Exam Narrative: Patient is intubated, sedated FiO2 21% Assisted bilateral breath sounds Skin sloughing with multiple staged ulcer all over her body Wet-to-dry dressing Weight offloading Heel ulcers, sacral ulcer, right hip ulcer and greater trochanteric area No active necrotic tissue that would need debridement Toes are not cyanotic today, complexion improved Weak dorsalis pedis pulses Abdominal drain with serosanguineous discharge Nondistended abdomen Urinary Catheter Management: Voss: Cath Placed During This Visit: no Reason for Continuing Indwelling Catheter: Accurate Measurement of Urinary Output in Critically Ill Patients Data : 05/03/21 05:50 05/03/21 05:05 Micro: Microbiology 05/02/21 01:52 Urine Culture - Preliminary Urine,Clean Catch Yeast 05/02/21 11:27 Gram Stain - Final Sputum - Expectorated Sputum 05/02/21 01:57 Blood Culture - Preliminary Blood NEGATIVE TO DATE 05/02/21 01:38 Blood Culture - Preliminary Blood NEGATIVE TO DATE A&P Assessment and plan (1) Bowel perforation: Status: Acute (2) Respiratory failure: Status: Acute (3) Decubitus ulcer: Status: Acute (4) Septic shock: Status: Acute (5) Lactic acidosis: Status: Acute (6) Acute respiratory failure with hypoxia: Status: Acute (7) Peripheral arterial disease: Status: Acute (8) Anemia: Status: Acute Plan Septic shock Source of sepsis multiple wounds Bowel perforation Continue antibiotics Wean off levo currently at 4 mics Wet-to-dry wound dressing with Santyl Acute hypoxic respiratory failure requiring mechanical ventilation, she was intubated in the field Weaning trial today Turn off sedation, wean off levo today current FiO2 21%, With sedation vacation assess neurological status Minimal vent settings Acute on chronic anemia with history of DIC Heparin drip stopped yesterday which was initiated for concern of cyanotic toes bilaterally arterial Doppler study report is pending She is not a good candidate to be on any kind of anticoagulating agent She has a history of superficial venous thrombosis was discharged on aspirin No active GI bleed noted at this point Serosanguineous discharge about 100 ml Abdomen is nondistended 1 unit PRBC requested Will repeat CT scan of abdomen in case we noticed more drainage from the drain Guarded prognosis Bedbound N.p.o. We can remove OG tube DNR/DNI Anasarca and hypoalbuminemia will delay wound healing Attestations Medical Necessity Statement*: Continue ICU management Time Spent in Patient Care: 30mins Coding Level of Care Code Acute Jewel Hole Driller for [facility] Fwd Diagnoses Bowel perforation K63.1 Respiratory failure J96.90 Decubitus ulcer L89.90 Septic shock A41.9; R65.21 Lactic acidosis E87.2 Acute respiratory failure with hypoxia J96.01 Peripheral arterial disease I73.9 Anemia D64.9
[2021-05-03 12:04] LABS: Glucose Point of Care 119 mg/dL (70-110)
[2021-05-03 12:24] LABS: Blood Gas Operator Identificat Anonymous; Blood Gas Sample Type CalVer
[2021-05-03] MEDS: collagenase oint 30 gm 1 APPLIC TOPICAL (13:42)
[2021-05-03 14:49] LABS: Vancomycin Trough 21.7 ug/mL (10-15)
[2021-05-03 15:09] LABS: ABG PH Result 6.99 (7.35-7.45)
--- NOTE | 2021-05-03 15:12 | PC.NURSE ---
Primaxin delay related to wound care of this patient and care of multiple other patients.
[2021-05-03 17:36] LABS: Glucose Point of Care 62 mg/dL (70-110)
[2021-05-03] MEDS: dextrose 5 % 500 ML 100 ML IV (17:45)
[2021-05-03 18:58] LABS: Glucose Point of Care 71 mg/dL (70-110)
--- NOTE | 2021-05-03 19:20 | PC.NURSE ---
Shift Note Pt remains intubated, no changes in settings. Sedation changed twice today, Fentanyl and propofol this am, then PRopofol and Precedex, finally eneded up with just Fentanyl. Pt facial features relaxed but she now opens her eyes and responds to her name. Levophed weaned off today. One unit of PRBCs infused today. She remains very edematous, with weepin sores on her left arm .. Anasarca noted. She remained in sinus rhythm throughout shift. Incision dressing intact, MARIO draing serous fluids that are blood tinges, 220 ml output. Anuric. Frequent safety and comfort rounds continue. Orders and/or nursing care completed as indicated. Patient monitored for response to intervention and treatment(s). Education provided includes comfort, PRBCS, fentanyl antibiotics and wound care. Patient s hobbies and crafts sales representative verbalized understanding of condition and ongoing plan of care. Will continue to monitor.
--- NOTE | 2021-05-03 20:06 | PC.NURSE ---
Temperature Patient's axillary temperature 96.3F. Sammy hugger blanket, in room from previous use, applied to patient. To monitor.
[2021-05-03 23:22] LABS: Glucose Point of Care 104 mg/dL (70-110)
[2021-05-04] VITALS (82 sets, daily range): BP systolic 89–160; BP diastolic 57–110; PULSE 73–127; RESP 6–20; TEMP 35.1–36.7; O2SAT 95–100; BMI 24.7
--- NOTE | 2021-05-04 00:31 | PC.NURSE ---
Temperature Patient's axillary temperature reading 94.3F multiple times, rectal temperature reading 95.1F. Sammy hugger remains on patient, warm blankets added additionally, and room temperature increased. To monitor.
[2021-05-04 02:22] LABS: Glucose Point of Care 87 mg/dL (70-110)
[2021-05-04 03:43] LABS: Vancomycin Random 17.3 ug/mL (20.0-40.0)
[2021-05-04 03:44] LABS: C Reactive Protein 199.3 mg/L (0.0-4.9); Creatine Phosphokinase 23 U/L (26-192); Lactate (Lactic Acid level) 1.2 mmol/L (0.5-2.2)
[2021-05-04 05:10] LABS: Basophils % 0.1 %; Eosinophils % 0.1 %; Hematocrit 26.8 % (37.0-47.0); Hemoglobin 8.7 g/dL (11.5-15.3); Lymphocytes # 1.3 10^3/uL (0.8-4.8); Lymphocytes % 15.7 %; Mean Corpuscular HGB Conc 32.5 g/dL (30.0-36.0); Mean Corpuscular Hemoglobin 31.6 pg (28.0-34.0); Mean Corpuscular Volume 97.5 fl (81-99); Mean Platelet Volume 11.5 fL (7.4-10.4); Monocytes # 0.2 10^3/uL (0.2-0.9); Monocytes % 1.8 %; Neutrophils # 6.77 10^3/uL (1.8-7.7); Neutrophils % 81.8 %; Nucleated Red Blood Cells % 0 %; Platelet Count 110 10^3/cmm (130-400); Red Blood Count 2.75 10^6/uL (4.1-5.3); Red Cell Distribution Width 20.1 % (12.1-15.1); White Blood Count 8.3 10^3/uL (4.0-10.0)
[2021-05-04 05:18] LABS: Alanine Aminotransferase 8 U/L (0-33); Albumin Level 2.1 g/dL (3.5-5.2); Alkaline Phosphatase 65 IU/L (35-105); Anion Gap 12.8 (5-19); Aspartate Amino Transferase 11 U/L (0-32); Blood Urea Nitrogen 14 mg/dL (8-23); Calcium 7.9 mg/dL (8.5-10.5); Carbon Dioxide 25 mmol/L (22-29); Chloride 105 mmol/L (98-107); Creatinine Clr Calc Pharmacy 62.9102; Globulin 1.6 g/dL (1.3-4.6); Glucose 77 mg/dL (65-115); Magnesium 1.9 mg/dL (1.7-2.3); Osmolality Calculated 289 mOsm/kg (285-295); Phosphorus 3.3 mg/dL (2.5-4.5); Sodium 140 mmol/L (136-145); Total Bilirubin 1.4 mg/dL (0.15-1.2); Total Protein 3.7 g/dL (6.6-8.7)
[2021-05-04 05:19] LABS: ABG PCO2 35.6 mmHg (35-45); ABG PH Result 7.49 (7.35-7.45); Arterial Blood Gas Hematocrit 33.5 % (37-47); Base Excess ABG 3.4 mmol/L (-2.0-2.0); Blood Gas Allen Test Pos; Blood Gas Sample Type Arterial; HCO3 ABG 26.8 mmol/L (22-26); PO2 ABG 84.6 mmHg (80.0-100.0)
[2021-05-04 05:20] LABS: Blood Gas Operator Identificat JB; Blood Gas Sample Site Radial, right; Oxygen Device VENT
[2021-05-04 05:21] LABS: Potassium 2.8 mmol/L (3.5-5.1)
[2021-05-04 05:27] LABS: Slide Review Slide Review Perform
--- NOTE | 2021-05-04 05:35 | PC.NURSE ---
Potassium level Patient's potassium level critical at 2.8. Dr. Garza contacted and order received for 40 meq KCL IV with 5 ml Lidocaine to run at 25 ml/hr. Medication administered per APR.
[2021-05-04] MEDS: lidocaine 1% 5 ML in potassium chloride premix 100 ML 25 ML IV (05:37)
[2021-05-04 06:04] LABS: Glucose Point of Care 70 mg/dL (70-110)
[2021-05-04 06:39] LABS: Glucose Point of Care 56 mg/dL (70-110)
--- NOTE | 2021-05-04 06:45 | PC.NURSE ---
Blood Glucose Patient's blood glucose is 56 upon assessment. Per hypoglycemia protocol, 1 amp of d50 IV was to be administered. Medication not administered due to allocation of supply. Dr. Garza contacted and notified of lack of supply; telephone order received to administer 500 ml of d5w at 100 ml/hr once. Medication administered per APR.
[2021-05-04] MEDS: dextrose 5 % 500 ML 100 ML IV (06:50)
[2021-05-04 07:51] LABS: Glucose Point of Care 70 mg/dL (70-110)
[2021-05-04] MEDS: pantoprazole 40 mg SDV IVP ×2 (08:11→19:01)
[2021-05-04] MEDS: fluconazole premix 100 MG in empty flexible container 1 EACH 50 MG IV (08:18)
--- NOTE | 2021-05-04 08:55 | PM.PN ---
Subjective Subjective: The patient remains intubated but is much more alert this morning (I believe all of the sedation has been discontinued). Extubation is planned. Vitals/I&O/Wt Last Vital Signs Temp 96.4 F L 05/04/21 04:00 Pulse 96 05/04/21 07:48 Resp 12 05/04/21 07:48 BP 123/72 05/04/21 06:45 Pulse Ox 98 05/04/21 07:48 05/03/21 05/04/21 05/04/21 22:59 06:59 14:59 Intake Total 837.577 / 1760.264 141.417 / 1760.264 35.375 / 35.375 Output Total 330 / 1020 590 / 1020 Balance 507.577 / 740.264 -448.583 / 740.264 35.375 / 35.375 Weight last 48 hrs Weight 140 lb Physical Exam Narrative: The midline dressing was removed. One of the elliott at the very bottom of the incision had pulled out partially and so I just removed it. There was a small collection of sanguinous/serosanguineous fluid underneath the skin. The area was redressed just in case there is any ongoing drainage. The Seamus drain continues to put out significant amounts of serous/serosanguineous fluid. Urinary Catheter Management: Voss: Cath Placed During This Visit: no Reason for Continuing Indwelling Catheter: Accurate Measurement of Urinary Output in Critically Ill Patients Data : 05/04/21 03:15 05/04/21 03:15 Micro: Microbiology 05/02/21 01:52 Urine Culture - Preliminary Urine,Clean Catch Yeast 05/02/21 11:27 Gram Stain - Final Sputum - Expectorated Sputum A&P Assessment and plan (1) Bowel perforation: Status post repair of disrupted gastric bypass anastomosis on 05/02/2021. She appears to be getting more stable. Continue current treatment. If the patient is able be weaned off the ventilator I have instructed nursing to remove her orogastric tube. I was under the impression this was a nasogastric tube in surgery, but I do not not want to have someone blindly pass any type of new gastric tube at this point given the recent gastric pouch repair. Status: Acute Attestations Medical Necessity Statement*: See admitting service's notation. Coding Level of Care Code Acute Solar Energy Sales Specialist for [facility] Fwd Diagnoses Bowel perforation K63.1
[2021-05-04] MEDS: potassium chloride premix 100 ML 25 MEQ IV (11:00)
--- NOTE | 2021-05-04 11:24 | P.PN_ITS ---
Subjective Subjective: Patient is on 21% FiO2 Patient is on pressure support, plan for extubation today and then will do CTA aorta with runoff, We will update cardiology after her CT results Patient did not tolerate heparin very well her hemoglobin dropped, today hemoglobin is 8.7 status post 1 unit PRBC Platelet count 110 She has about 1 L serosanguineous discharge from abdominal drain Blood-tinged secretions noted in OG tube above 30 mL, at the bedside, updated Vitals/I&O/Wt Last Vital Signs Temp 96.4 F L 05/04/21 04:00 Pulse 103 H 05/04/21 11:00 Resp 12 05/04/21 11:06 BP 136/76 05/04/21 11:00 Pulse Ox 100 05/04/21 11:06 05/03/21 05/04/21 05/04/21 22:59 06:59 14:59 Intake Total 837.577 / 1618.847 141.417 / 1760.264 290.375 / 290.375 Output Total 330 / 430 590 / 1020 Balance 507.577 / 1188.847 -448.583 / 740.264 290.375 / 290.375 Weight last 48 hrs Weight 63.503 kg Physical Exam Narrative: Patient is intubated, not sedated, he has her eyes open, able to follow commands Hemodynamically stable Multiple ulcers all over her body Multiple stage sacral ulcer Wet-to-dry dressing with Santyl Patient is able to follow commands Currently doing well on 21% FiO2 Abdomen is soft, Complexion of lower extremities improved however weak pulses dorsalis pedis posterior tibial bilaterally right greater than left Urinary Catheter Management: Voss: Cath Placed During This Visit: no Reason for Continuing Indwelling Catheter: Accurate Measurement of Urinary Output in Critically Ill Patients Data : 05/04/21 03:15 05/04/21 03:15 Micro: Microbiology 05/04/21 01:10 MRSA Culture - Final Nose 05/02/21 01:52 Urine Culture - Preliminary Urine,Clean Catch Yeast 05/02/21 11:27 Gram Stain - Final Sputum - Expectorated Sputum A&P Assessment and plan (1) Peripheral arterial disease: Status: Acute (2) Anemia: Status: Acute (3) UTI (urinary tract infection): Status: Acute (4) Lactic acidosis: Status: Acute (5) Septic shock: Status: Acute (6) Bowel perforation: Status: Acute (7) Respiratory failure: Status: Acute (8) Decubitus ulcer: Status: Acute (9) Acute encephalopathy: Status: Acute (10) Hypokalemia: Status: Acute Plan Septic shock: Resolved Patient is off levo Lactic acidosis: Improved Hypokalemia: Repleted Respiratory failure with altered mental status with underlying septic shock Metabolic encephalopathy Improving Patient is awake and alert Plan for extubation today currently on pressure support Patient was intubated in the field before her arrival in the ER Currently on minimal vent settings Peripheral arterial disease Weak pulses of foot right lower than left Plan for CTA aorta with runoff She did not tolerate heparin, required 1 unit PRBC, drop in hemoglobin noted, Check DIC panel Blood-tinged orogastric secretions Plan to remove OG tube We will obtain CT abdomen with angiogram today as well Bowel perforation status post intervention, 05/02, 1 L serosanguineous discharge noted in the drain Avoid orogastric or nasogastric tube reinsertion Patient can be started on clear liquids after extubation after bedside evaluation DNR/DNI We will discuss with the patient whether she wants to have intervention for her peripheral arterial disease, I am getting CTA aorta with runoff Continue antibiotics for bowel perforation and UTI Multiple skin ulcers, multistage, wet-to-dry dressing with Santyl Vanco trough level target 11-15 Afebrile, cultures negative to date, leukocytosis improved significantly Attestations Medical Necessity Statement*: Guarded prognosis Time Spent in Patient Care: 30mins Coding Level of Care Code Acute Play Reader for [facility] Fwd Diagnoses Peripheral arterial disease I73.9 Anemia D64.9 UTI (urinary tract infection) N39.0 Lactic acidosis E87.2 Septic shock A41.9; R65.21 Bowel perforation K63.1 Respiratory failure J96.90 Decubitus ulcer L89.90 Acute encephalopathy G93.40 Hypokalemia E87.6
[2021-05-04 11:40] LABS: Glucose Point of Care 91 mg/dL (70-110)
--- NOTE | 2021-05-04 11:46 | CTR_ITS ---
PROCEDURE INFORMATION: Exam: CTA Angiogram of the Abdominal Aorta and Bilateral Lower Extremities (Run-off) With IV Contrast Exam date and time: 05/04/2021 3:25 PM Age: 65 years old Clinical indication: Other: Weak pulses RT foot; Patient HX: Weak pulses dorsalis pedis posterior tibial bilaterally right greater than left, . septic; Additional info: Pad, weak pulses RT foot TECHNIQUE: Imaging protocol: CT angiogram of the abdominal aorta, pelvis and bilateral lower extremities with IV iodinated contrast. 3D rendering (Not supervised by radiologist): MIP and/or 3D reconstructed images were created by the technologist. Radiation optimization: All CT scans at this facility use at least one of these dose optimization techniques: automated exposure control; mA and/or kV adjustment per patient size (includes targeted exams where dose is matched to clinical indication); or iterative reconstruction. Contrast material: OMNIPAQUE 350; Contrast volume: 95 ml; Contrast route: INTRAVENOUS (IV); COMPARISON: CT abdomen pelvis wo con [id number] 05/02/2021 2:39 AM RADIATION DOSE METRICS: Total DLP (mGy-cm): 1801.86 FINDINGS: Tubes, catheters and devices: A surgical drain transverses the upper right abdominal wall with tip adjacent to the spleen. Aorta: Calcified plaque in the abdominal aorta. No aneurysm or dissection. Celiac trunk and mesenteric arteries: Calcified plaque with moderate stenosis at the origin of the celiac artery. Calcified plaque with moderate stenosis at the origin of the superior mesenteric artery. Renal arteries: Calcified plaque with moderate-severe stenosis at the origins of the right and left renal arteries. Right iliac arteries: Calcified plaque without significant stenosis in the right common and external iliac arteries. Right femoral/popliteal arteries: No occlusion or significant stenosis. Right infrapopliteal arteries: Occlusion of the right anterior tibial artery at its origin. No visible runoff to the foot. Moderate multifocal disease in the right posterior tibial artery with runoff to the foot. Moderate multifocal disease in the right peroneal artery with runoff to the anterior foot. Left iliac arteries: Calcified plaque without significant stenosis in the left common and external iliac arteries. Left femoral/popliteal arteries: Mild plaque in the left popliteal artery with mild stenosis. Left infrapopliteal arteries: Occlusion of the left anterior tibial artery with no visible runoff to the foot. Mild multifocal disease in the left posterior tibial artery with runoff to the foot. Mild multifocal disease in the left peroneal artery with visible runoff to the anterior foot. Lungs: Calcified granuloma in the left base. Dependent atelectasis in the lower lobes. Pleural space: Moderate bilateral pleural effusions, right greater than left. Liver: Diffuse fatty infiltration of the liver. Gallbladder and bile ducts: Multiple cholecystectomy clips. The bile ducts are normal. Pancreas: Unremarkable. No mass. No ductal dilation. Spleen: Calcified granulomas in the spleen. Adrenals: Normal. No mass. Kidneys and ureters: Fluid density cysts in both kidneys, Hounsfield units less than 20. No follow-up imaging is recommended. No hydronephrosis. Stomach and bowel: The stomach is decompressed with mucosal enhancement. Gas and fluid in the proximal and transverse colon. The distal colon is decompressed. The small bowel is unremarkable. No obstruction. Appendix: No evidence of appendicitis. Urinary bladder: Voss catheter in a decompressed urinary bladder. Reproductive: The uterus and ovaries are unremarkable. Intraperitoneal space: Mild scattered pneumoperitoneum, consistent with recent abdominal surgery. Mild abdominal and pelvic ascites. Lymph nodes: No lymphadenopathy. Bones/joints: Old healed right femur diaphyseal fracture. Degenerative changes of the spine with subluxation of L4 on L5. No fracture identified. Intramedullary alysa and compression screw in the left femur transversing an old healed left intertrochanteric femur fracture. Heterotopic bone formation surrounds the left intertrochanteric femur fracture. Soft tissues: Anterior laparotomy skin elliott. Severe diffuse body wall edema. CT/CT angio abd aorta runof [id number] IMPRESSION: 1. Occlusion of the bilateral anterior tibial arteries at the origins. 2. The bilateral peroneal arteries provide some collateralized flow to the anterior feet with moderate disease on the right and mild disease on the left. 3. Moderate stenoses at the origins of the celiac and superior mesenteric arteries. 4. Moderate-severe stenoses at the origins of the left and right renal arteries. 5. Small amount of pneumoperitoneum is consistent with recent abdominal surgery. 6. Mild ascites.
[2021-05-04] MEDS: collagenase oint 30 gm 1 APPLIC TOPICAL (13:16)
[2021-05-04] MEDS: iohexol 350 mg/mL 100 mL Btl IV (15:27)
--- NOTE | 2021-05-04 15:49 | PC.NURSE ---
This nurse assumed care approximately 1400, patient O2 sat 100 on 2L NC, placed on RA O2 sat 96 at this time
[2021-05-04 16:39] LABS: Glucose Point of Care 95 mg/dL (70-110)
[2021-05-04] MEDS: vancomycin 1,000 MG in sodium chloride 0.9% 250 ML 250 MG IV (17:16)
[2021-05-04 17:51] LABS: Glucose Point of Care 69 mg/dL (70-110)
[2021-05-04 18:44] LABS: Glucose Point of Care 110 mg/dL (70-110)
--- NOTE | 2021-05-04 20:25 | PC.NURSE ---
Tachycardia/HTN Patient's HR sustaining around 120 in sinus tach and patient's blood pressure increasing. Dr. Garza notified; orders received to obtain an EKG and administer labetalol 10 mg IVP PRN Q 4 hr if systolic BP >180 or diastolic BP >100. See MAR for administration. EKG obtained by RT.
--- NOTE | 2021-05-04 20:27 | ECG_ITS ---
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 Measurements Intervals [place] Rate: 112 P: 37 [place]: 131 QRS: -42 QRSD: 86 T: -60 QT: 362 QTc: 496 Interpretive Statements SINUS TACHYCARDIA LEFT AXIS DEVIATION [QRS AXIS < -30] LOW QRS VOLTAGE IN EXTREMITY LEADS [QRS DEFLECTION < 0.5 mV IN LIMB LEADS] POSSIBLE ANTERIOR MYOCARDIAL INFARCTION , PROBABLY OLD [30 ms Q WAVE IN V3/V4, OR R < 0.2 mV IN V4] Compared to ECG 05/02/2021 07:24:54 Left-axis deviation now present Myocardial infarct finding now present Left anterior fascicular block no longer present T-wave abnormality no longer present Electronically Signed On 05-05-2021 9:05:40 CDT by Jc Poe M.D. [email or web address]
--- NOTE | 2021-05-04 22:00 | PC.NURSE ---
Pain Patient complaining of moderate pain and no pain medications ordered. Dr. Garza contacted and order received for 1 mg Morphine Q 4 hours PRN for moderate-severe pain. Medication administered per APR.
[2021-05-04] MEDS: morphine 4 mg/mL SDV 1 mL 1 MG IVP (22:13)
[2021-05-04] MEDS: labetalol 5 mg/mL SDV 20mL 10 MG IVP (22:53)
[2021-05-04 23:36] LABS: Glucose Point of Care 157 mg/dL (70-110)
[2021-05-05] VITALS (53 sets, daily range): BP systolic 115–176; BP diastolic 70–112; PULSE 97–147; RESP 13–31; TEMP 36.6–37; O2SAT 88–100; BMI 25.4
[2021-05-05 02:26] LABS: Glucose Point of Care 171 mg/dL (70-110)
[2021-05-05] MEDS: labetalol 5 mg/mL SDV 20mL 10 MG IVP (04:08)
[2021-05-05 05:14] LABS: Basophils # 0.1 10^3/uL (0.0-0.1); Basophils % 0.5 %; Eosinophils % 0.1 %; Hematocrit 32.8 % (37.0-47.0); Hemoglobin 10.8 g/dL (11.5-15.3); Lymphocytes # 1.1 10^3/uL (0.8-4.8); Lymphocytes % 9.9 %; Mean Corpuscular HGB Conc 32.9 g/dL (30.0-36.0); Mean Corpuscular Hemoglobin 31.8 pg (28.0-34.0); Mean Corpuscular Volume 96.5 fl (81-99); Mean Platelet Volume 11.7 fL (7.4-10.4); Monocytes # 0.4 10^3/uL (0.2-0.9); Monocytes % 3.8 %; Neutrophils # 9.32 10^3/uL (1.8-7.7); Neutrophils % 85.2 %; Nucleated Red Blood Cells % 0 %; Platelet Count 116 10^3/cmm (130-400); Red Cell Distribution Width 19.7 % (12.1-15.1); White Blood Count 10.9 10^3/uL (4.0-10.0)
[2021-05-05 05:44] LABS: Alanine Aminotransferase 9 U/L (0-33); Albumin Level 2.2 g/dL (3.5-5.2); Alkaline Phosphatase 176 IU/L (35-105); Anion Gap 13.1 (5-19); Aspartate Amino Transferase 14 U/L (0-32); Blood Urea Nitrogen 10 mg/dL (8-23); C Reactive Protein 229.6 mg/L (0.0-4.9); Calcium 7.9 mg/dL (8.5-10.5); Carbon Dioxide 25 mmol/L (22-29); Chloride 104 mmol/L (98-107); Creatine Phosphokinase 22 U/L (26-192); Globulin 2.3 g/dL (1.3-4.6); Glomerular Filtration Rate 160.2 mL/min (90-130); Glucose 193 mg/dL (65-115); Magnesium 1.7 mg/dL (1.7-2.3); Osmolality Calculated 292 mOsm/kg (285-295); Phosphorus 3.6 mg/dL (2.5-4.5); Potassium 3.1 mmol/L (3.5-5.1); Sodium 139 mmol/L (136-145); Total Bilirubin 1.4 mg/dL (0.15-1.2); Total Protein 4.5 g/dL (6.6-8.7)
[2021-05-05 05:48] LABS: Lactate (Lactic Acid level) 1.6 mmol/L (0.5-2.2)
[2021-05-05] MEDS: morphine 4 mg/mL SDV 1 mL 1 MG IVP ×4 (05:54→21:03)
[2021-05-05 05:56] LABS: Creatinine Clr Calc Pharmacy 62.9102
[2021-05-05 06:14] LABS: Glucose Point of Care 201 mg/dL (70-110)
[2021-05-05 07:28] LABS: Glucose Point of Care 174 mg/dL (70-110)
[2021-05-05] MEDS: insulin lispro 100 unit/1 mL SUBCUT ×2 (07:32→11:29)
[2021-05-05] MEDS: pantoprazole 40 mg SDV IVP ×2 (07:32→19:24)
[2021-05-05] MEDS: fluconazole premix 100 MG in empty flexible container 1 EACH 50 MG IV (07:32)
[2021-05-05] MEDS: collagenase oint 30 gm 1 APPLIC TOPICAL (07:33)
[2021-05-05] MEDS: enoxaparin 60 mg/0.6 mL Syringe SUBCUT (07:47)
--- NOTE | 2021-05-05 08:41 | P.PN_ITS ---
Subjective Subjective: Patient is now extubated. She is tearful this morning and [facility] Vitals/I&O/Wt Last Vital Signs Temp 98.6 F 05/05/21 08:00 Pulse 104 H 05/05/21 08:00 Resp 14 05/05/21 08:00 BP 154/94 05/05/21 08:00 Pulse Ox 90 05/05/21 07:00 05/04/21 05/05/21 05/05/21 22:59 06:59 14:59 Intake Total 750 / 2184.375 544 / 2184.375 410 / 410 Output Total 685 / 1920 835 / 1920 Balance 65 / 264.375 -291 / 264.375 410 / 410 Weight last 48 hrs Weight 143 lb 4.8 oz Weight 140 lb Physical Exam Narrative: Hemodynamics seem more stable. No further drainage from the midline wound opening at the bottom. The Seamus drain has a very small amount of serous fluid in the bulb. 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 She appears to be getting more stable. Continue current treatment. The patient is now extubated and the OG tube is out. Everything appears to be healing fairly well but she obviously has multiple other medical issues happening. Status: Acute Attestations Medical Necessity Statement*: My notation Coding Level of Care Code Acute Leadership Recruiter for [facility] Diagnoses Bowel perforation K63.1
--- NOTE | 2021-05-05 09:53 | PM.PN ---
Subjective Subjective: Patient was extubated successfully to room air yesterday She is tolerating clear liquid diet She is emotionally very labile She is stating that she wants to go back to [facility] She did not agree for vascular intervention however will re-discuss once her is here Vitals/I&O/Wt Last Vital Signs Temp 98.6 F 05/05/21 08:00 Pulse 120 H 05/05/21 09:34 Resp 16 05/05/21 09:34 BP 154/94 05/05/21 08:00 Pulse Ox 95 05/05/21 09:34 05/04/21 05/05/21 05/05/21 22:59 06:59 14:59 Intake Total 750 / 1640.375 544 / 2184.375 410 / 410 Output Total 685 / 1085 835 / 1920 Balance 65 / 555.375 -291 / 264.375 410 / 410 Weight last 48 hrs Weight 65 kg Weight 63.503 kg Physical Exam Narrative: Nonfocal neuro exam patient is able to follow commands She is awake and alert Emotionally labile Oriented to herself Stating that her will not see her today S1, S2 Abdomen is nondistended Decubitus ulcer all over her body at multiple stages Edema of legs noted Both legs and feet complexion improved, no active signs of cyanosis Nonpalpable pulses however foot does not feel cold, there is no significant change in temperature Patient is breathing well on room air I do not see any signs of respiratory distress Urinary Catheter Management: Voss: Cath Placed During This Visit: no Reason for Continuing Indwelling Catheter: Accurate Measurement of Urinary Output in Critically Ill Patients Data : 05/05/21 04:18 05/05/21 04:18 Micro: Microbiology 05/02/21 11:27 Gram Stain - Final Sputum - Expectorated Sputum Sputum Culture - Preliminary Yeast 05/04/21 01:10 MRSA Culture - Final Nose A&P Assessment and plan (1) Hypokalemia: Status: Acute (2) Anemia: Status: Acute (3) Peripheral arterial disease: Status: Acute (4) UTI (urinary tract infection): Status: Acute (5) Acute respiratory failure with hypoxia: Status: Acute (6) Bowel perforation: Status: Acute (7) Respiratory failure: Status: Acute (8) Decubitus ulcer: Status: Acute (9) High anion gap metabolic acidosis: Status: Acute Plan Bowel perforation status post repair of disrupted gastric bypass anastomosis 05/02 Minimal drainage in Seamus drain Hemoglobin stable after 1 unit PRBC Peripheral arterial disease No active signs of cyanosis, Rediscuss surgical intervention once is here Patient is not interested I would add Plavix and high-dose atorvastatin She received therapeutic dose of Lovenox today Respiratory failure related to septic shock Patient was extubated 05/04 She was intubated in the field Successfully extubated to room air Decubitus ulcer at multiple stages Wet-to-dry dressing with Santyl Does not need active debridement Septic shock, lactic acidosis, respiratory failure: Lactic acidosis: Resolved Hypokalemia: Repleted DNR/DNI CTA aorta with runoff reviewed Continue antimicrobials Plan to transfer her out of ICU, de-escalate antibiotics, switch to p.o. fluconazole Attestations Medical Necessity Statement*: Patient came in transfer out of ICU Time Spent in Patient Care: 30mins Coding Level of Care Code Acute Investment Consultant for [facility] Fwd Diagnoses Hypokalemia E87.6 Anemia D64.9 Peripheral arterial disease I73.9 UTI (urinary tract infection) N39.0 Acute respiratory failure with hypoxia J96.01 Bowel perforation K63.1 Respiratory failure J96.90 Decubitus ulcer L89.90 High anion gap metabolic acidosis E87.2
--- NOTE | 2021-05-05 10:25 | PC.SOCIAL ---
IMM update IMM updated with patient's . Verbalized an understanding. Initialled, dated, timed, and placed in chart.
[2021-05-05 11:22] LABS: Glucose Point of Care 265 mg/dL (70-110)
[2021-05-05 17:54] LABS: Glucose Point of Care 119 mg/dL (70-110)
--- NOTE | 2021-05-05 18:37 | PC.NURSE ---
Wound dressing change per physician's orders. This nurse with assistance of RADHA Cosby changed soiled wound dressings. Seamus drain drained 100ml this shift. Patient tolerated well.
[2021-05-05] MEDS: linezolid premix 600 MG/300 ML PREMIX 300 MG IV (20:57)
[2021-05-05] MEDS: atorvastatin 40 mg Tablet 20 MG PO (21:03)
[2021-05-05 21:10] LABS: Glucose Point of Care 182 mg/dL (70-110)
[2021-05-06] VITALS (28 sets, daily range): BP systolic 118–159; BP diastolic 70–102; PULSE 80–134; RESP 9–21; TEMP 36.3–37.2; O2SAT 92–99; BMI 24.8
[2021-05-06] MEDS: morphine 4 mg/mL SDV 1 mL 1 MG IVP ×3 (02:19→20:46)
[2021-05-06 04:46] LABS: Basophils % 0.3 %; Hematocrit 31.7 % (37.0-47.0); Hemoglobin 10.4 g/dL (11.5-15.3); Lymphocytes # 1.4 10^3/uL (0.8-4.8); Lymphocytes % 12.4 %; Mean Corpuscular HGB Conc 32.8 g/dL (30.0-36.0); Mean Corpuscular Hemoglobin 31.5 pg (28.0-34.0); Mean Corpuscular Volume 96.1 fl (81-99); Mean Platelet Volume 11.4 fL (7.4-10.4); Monocytes # 0.9 10^3/uL (0.2-0.9); Monocytes % 7.3 %; Neutrophils # 9.15 10^3/uL (1.8-7.7); Nucleated Red Blood Cells % 0 %; Platelet Count 122 10^3/cmm (130-400); Red Cell Distribution Width 18.9 % (12.1-15.1); White Blood Count 11.6 10^3/uL (4.0-10.0)
[2021-05-06 05:12] LABS: Blood Urea Nitrogen 8 mg/dL (8-23); Calcium 7.7 mg/dL (8.5-10.5); Carbon Dioxide 25 mmol/L (22-29); Chloride 105 mmol/L (98-107); Glomerular Filtration Rate 160.2 mL/min (90-130); Glucose 171 mg/dL (65-115); Magnesium 1.6 mg/dL (1.7-2.3); Osmolality Calculated 290 mOsm/kg (285-295); Phosphorus 3.4 mg/dL (2.5-4.5); Sodium 139 mmol/L (136-145)
[2021-05-06 07:18] LABS: Glucose Point of Care 140 mg/dL (70-110)
--- NOTE | 2021-05-06 07:29 | PC.NURSE ---
Wound Dressings Large bowel movement soiled wound dressings on sacrum wounds and right hip wound. All areas cleaned and patient bedding changed. Soiled dressings removed, Santyl reapplied, and ABD pads replaced.
[2021-05-06] MEDS: potassium chloride premix 100 ML 25 MEQ IV (07:30)
[2021-05-06] MEDS: pantoprazole 40 mg SDV IVP ×2 (07:31→20:47)
[2021-05-06] MEDS: fluconazole premix 100 MG in empty flexible container 1 EACH 50 MG IV (07:31)
[2021-05-06] MEDS: linezolid premix 600 MG/300 ML PREMIX 300 MG IV ×2 (08:30→22:15)
[2021-05-06] MEDS: collagenase oint 30 gm 1 APPLIC TOPICAL (08:30)
[2021-05-06] MEDS: clopidogrel 75 mg Tablet PO (08:30)
--- NOTE | 2021-05-06 10:04 | PC.NURSE ---
Report called to RN on Med Surg. Patient transferred by bed to room 251-1. Patient tolerated transfer well. This nurse notified product line manager of patient's arrival to floor.
--- NOTE | 2021-05-06 10:24 | PM.PN ---
Subjective Subjective: The patient seems quite responsive today but is somewhat confused. Nursing reports that she is tolerating a clear liquid diet. Vitals/I&O/Wt Last Vital Signs Temp 98.4 F 05/06/21 08:00 Pulse 115 H 05/06/21 10:00 Resp 19 H 05/06/21 10:00 BP 136/86 05/06/21 10:00 Pulse Ox 96 05/06/21 09:00 05/05/21 05/06/21 05/06/21 22:59 06:59 14:59 Intake Total 640 / 1150 1091 / 1091 Output Total 600 / 630 30 / 630 50 / 50 Balance 40 / 520 -30 / 520 1041 / 1041 Weight last 48 hrs Weight 140 lb 4.8 oz Weight 143 lb 4.8 oz Physical Exam Narrative: The Seamus drainage has decreased considerably. She only has a very small amount of serous fluid in the bulb currently. The midline incision is not draining any fluid. 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 She appears to be getting more stable. Continue current treatment. The patient appears to be doing fairly well at the present time. Continue antimicrobials. Status: Acute Attestations Medical Necessity Statement*: See admitting service's notation. Coding Level of Care Code Acute Shredded Filler Hopper Feeder for Paola De Los Santos Diagnoses Bowel perforation K63.1
--- NOTE | 2021-05-06 11:19 | P.PN_ITS ---
Subjective Subjective: This morning patient was awake and alert, still oriented to herself, Hemodynamically stable She had several semisolid liquid bowel movements Tolerating clear liquid diet Doing well on room air No active abdominal pain Minimal drainage from the Seamus drain Vitals/I&O/Wt Last Vital Signs Temp 98.4 F 05/06/21 08:00 Pulse 115 H 05/06/21 10:00 Resp 19 H 05/06/21 10:00 BP 136/86 05/06/21 10:00 Pulse Ox 96 05/06/21 09:00 05/05/21 05/06/21 05/06/21 22:59 06:59 14:59 Intake Total 640 / 1150 1091 / 1091 Output Total 600 / 600 30 / 630 50 / 50 Balance 40 / 550 -30 / 520 1041 / 1041 Weight last 48 hrs Weight 63.639 kg Weight 65 kg Physical Exam Narrative: Patient is oriented to herself Nonfocal neuro exam No abdominal pain Seamus drain in place with small amount of serosanguineous discharge Multiple skin ulcers from head to toe, multiple stages No active necrotic tissue that would require debridement Weak pulses posterior tibial Dorsalis pedis not palpable Patient's toes are not cyanotic I do not see any ischemic ulcers Bilateral lower extremity edema Tachycardia Urinary Catheter Management: Voss: Cath Placed During This Visit: no Reason for Continuing Indwelling Catheter: Accurate Measurement of Urinary Output in Critically Ill Patients Data : 05/06/21 04:02 05/06/21 04:02 Micro: Microbiology 05/02/21 11:27 Gram Stain - Final Sputum - Expectorated Sputum Sputum Culture - Final Maricruz albicans 05/02/21 01:52 Urine Culture - Final Urine,Clean Catch Maricruz albicans Enterococcus faecium vre A&P Assessment and plan (1) Hypokalemia: Status: Acute (2) Anemia: Status: Acute (3) Peripheral arterial disease: Status: Acute (4) UTI (urinary tract infection): Status: Acute (5) Lactic acidosis: Status: Acute (6) Septic shock: Status: Acute (7) Acute respiratory failure with hypoxia: Status: Acute (8) Bowel perforation: Status: Acute (9) Decubitus ulcer: Status: Acute Plan Bowel perforation status post intervention Continue antifungal, VRE antimicrobial along Primaxin Afebrile, no worsening leukocytosis Hemoglobin stable status post 1 unit PRBC she dropped hemoglobin after we initiated heparin ip however no active GI bleed, mild bleeding noted in the orogastric tube however she has been stable CT scan did not show any hematoma Peripheral arterial disease, patient has been agreeable for peripheral vascular angiogram, will consult cardiology on Friday, no acute indication for any intervention Not a good candidate for heparin, continue Eliquis, atorvastatin, avoid aspirin because of recent surgery UTI: Continue linezolid for VRE Multiple stage sacral ulcers No need of debridement for now Wound care, nursing care, wet-to-dry, Santyl Patient carries guarded prognosis, at risk of amputation considering multiple sacral ulcers, heel ulcers poor vascular supply of lower extremities She is tachycardic, venous stasis dermatitis with edema of legs We will request venous Dopplers Check D-dimer However she is not a good candidate for any anticoagulating agent DNR/DNI Family updated Respiratory failure requiring mechanical ventilation due to septic shock: Patient extubated successfully to room air Septic shock: Resolved Lactic acidemia improved Attestations Medical Necessity Statement*: Continue medical management Time Spent in Patient Care: 20mins Coding Level of Care Code Acute Injection Molder for g Fwd Diagnoses Hypokalemia E87.6 Anemia D64.9 Peripheral arterial disease I73.9 UTI (urinary tract infection) N39.0 Lactic acidosis E87.2 Septic shock A41.9; R65.21 Acute respiratory failure with hypoxia J96.01 Bowel perforation K63.1 Decubitus ulcer L89.90
--- NOTE | 2021-05-06 11:27 | USCV_ITS ---
Almita Mckinley Age: 65 Gender: F : 1955 Exam Date: 05/06/2021 12:50 Ordering Phys: Lulú sEpinal MD Technologist: Yeyo Castro Exam Location: [facility] [place] Indication: swelling PROCEDURES: The venous duplex Doppler examination of both lower extremities was performed in the standard fashion. The following venous structures were evaluated: common femoral vein, profunda vein, proximal portion of the greater saphenous vein, superficial femoral vein, and the popliteal vein. In addition, the posterior tibial and peroneal trunk were evaluated. FINDINGS: Normal 2-D Doppler and augmentation and compressibility throughout the lower extremity venous structures. Additional imaging through the proximal calf veins also reveals no thrombus. Limited evaluation of the greater saphenous vein is patent with no thrombus.. The veins were found to be easily compressible with spontaneous blood flow. Non pulsatile flow pattern. CONCLUSIONS No evidence of DVT in the above-mentioned identifiable veins. Dr Nate Kennedy MD [facility] (Electronically Signed) Final Date: 07 May 2021 08:56 S
[2021-05-06 11:51] LABS: Glucose Point of Care 184 mg/dL (70-110)
[2021-05-06] MEDS: insulin lispro 100 unit/1 mL SUBCUT (12:47)
[2021-05-06] MEDS: lactated ringers 500 ML 999 ML IV (12:47)
[2021-05-06 13:47] LABS: D Dimer 6.74 ug/mIFEU (0-0.59)
[2021-05-06 17:54] LABS: Glucose Point of Care 136 mg/dL (70-110)
[2021-05-06] MEDS: atorvastatin 40 mg Tablet 20 MG PO (20:47)
[2021-05-06 21:11] LABS: Glucose Point of Care 125 mg/dL (70-110)
[2021-05-07] VITALS (7 sets, daily range): BP systolic 125–152; BP diastolic 70–84; PULSE 89–114; RESP 16–18; TEMP 36.6–37.1; O2SAT 92–100
[2021-05-07 04:31] LABS: Basophils % 0.2 %; Eosinophils % 0.1 %; Hematocrit 29.6 % (37.0-47.0); Hemoglobin 9.7 g/dL (11.5-15.3); Lymphocytes # 1.4 10^3/uL (0.8-4.8); Lymphocytes % 16.8 %; Mean Corpuscular HGB Conc 32.8 g/dL (30.0-36.0); Mean Corpuscular Hemoglobin 32.4 pg (28.0-34.0); Monocytes # 0.9 10^3/uL (0.2-0.9); Monocytes % 10.7 %; Neutrophils # 5.82 10^3/uL (1.8-7.7); Nucleated Red Blood Cells % 0 %; Platelet Count 131 10^3/cmm (130-400); Red Blood Count 2.99 10^6/uL (4.1-5.3); Red Cell Distribution Width 18.5 % (12.1-15.1); White Blood Count 8.2 10^3/uL (4.0-10.0)
[2021-05-07 05:06] LABS: Anion Gap 13.5 (5-19); Blood Urea Nitrogen 7 mg/dL (8-23); Calcium 7.6 mg/dL (8.5-10.5); Carbon Dioxide 25 mmol/L (22-29); Chloride 100 mmol/L (98-107); Glomerular Filtration Rate 223.3 mL/min (90-130); Glucose 150 mg/dL (65-115); Magnesium 1.6 mg/dL (1.7-2.3); Osmolality Calculated 281 mOsm/kg (285-295); Potassium 3.5 mmol/L (3.5-5.1); Sodium 135 mmol/L (136-145)
[2021-05-07 06:39] LABS: Glucose Point of Care 126 mg/dL (70-110)
[2021-05-07] MEDS: clopidogrel 75 mg Tablet PO (08:04)
[2021-05-07] MEDS: fluconazole premix 100 MG in empty flexible container 1 EACH 50 MG IV (08:04)
[2021-05-07] MEDS: collagenase oint 30 gm 1 APPLIC TOPICAL (08:11)
--- NOTE | 2021-05-07 09:07 | P.PN_ITS ---
Subjective Subjective: The patient has no specific complaints this morning. She tells me she normally eats a low carbohydrate diet. I was tempted to advance her diet but apparently there is still some thought that she may have angiography, so I will hold on that for now. Vitals/I&O/Wt Last Vital Signs Temp 98.0 F 05/07/21 07:10 Pulse 114 H 05/07/21 07:10 Resp 18 05/07/21 07:10 BP 152/84 05/07/21 07:10 Pulse Ox 95 05/07/21 07:10 05/06/21 05/07/21 05/07/21 22:59 06:59 14:59 Intake Total 220 / 2891 400 / 2891 Output Total 200 / 250 90 / 90 Balance 220 / 2641 200 / 2641 -90 / -90 Weight last 48 hrs Weight 139 lb 14.4 oz Weight 140 lb 4.8 oz Physical Exam Narrative: The Seamus drain has a small amount of serosanguineous fluid in the bulb. Bowel sounds are present. The incision looks good. 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 She appears to be getting more stable. Continue current treatment. The patient appears to be doing fairly well at the present time. Holding on advancement of diet as above. Continue antimicrobials. Status: Acute Attestations Medical Necessity Statement*: See admitting service's notation. Coding Level of Care Code Acute Battalion Chief for [facility] Diagnoses Bowel perforation K63.1
--- NOTE | 2021-05-07 09:22 | P.PN_ITS ---
Subjective Subjective: I have spoken with Dr. Nguyen this morning, who will evaluate the patient Patient is not endorsing any new complaints Dr. Avery is evaluating her today, can modify her diet after Dr. Nguyen's consultation She is on room air, saturating well, blood pressure is stable Afebrile Hemoglobin is stable 9.7 Mild serosanguineous discharge in Seamus drain No overnight events D-dimer 6.7 She is not tachycardic, not hypoxic, not a good candidate to be on any kind of anticoagulating agent No evidence of DVT Vitals/I&O/Wt Last Vital Signs Temp 98.0 F 05/07/21 07:10 Pulse 89 05/07/21 09:09 Resp 16 05/07/21 09:09 BP 152/84 05/07/21 07:10 Pulse Ox 93 05/07/21 09:09 05/06/21 05/07/21 05/07/21 22:59 06:59 14:59 Intake Total 220 / 2491 400 / 2891 Output Total 200 / 250 90 / 90 Balance 220 / 2441 200 / 2641 -90 / -90 Weight last 48 hrs Weight 63.458 kg Weight 63.639 kg Physical Exam Narrative: Patient sitting comfortably in her bed Pleasant and cooperative during my evaluation She is on room air Multiple decubitus ulcer, multiple stages, no active necrotic tissue to be debrided Bilateral heel ulcers Bilateral foot are cold however I do not see any mottling or cyanosis Dorsalis pedis not palpable, Posterior tibial dopplerable Nonfocal neuro exam She is much more cooperative awake and alert Pleasant mood Sandra in place Seamus drain with minimal serosanguineous discharge No active labored breathing, she is saturating well on room air Urinary Catheter Management: Voss: Cath Placed During This Visit: no Reason for Continuing Indwelling Catheter: Acute Urinary Retention or Obstruction Data : 05/07/21 04:12 05/07/21 04:12 Micro: Microbiology 05/02/21 01:57 Blood Culture - Final Blood NO GROWTH AFTER 5 DAYS 05/02/21 01:38 Blood Culture - Final Blood NO GROWTH AFTER 5 DAYS A&P Assessment and plan (1) Hypokalemia: Status: Acute (2) Anemia: Status: Acute (3) Peripheral arterial disease: Status: Acute (4) UTI (urinary tract infection): Status: Acute (5) Lactic acidosis: Status: Acute (6) Septic shock: Status: Acute (7) Acute respiratory failure with hypoxia: Status: Acute (8) Bowel perforation: Status: Acute (9) Respiratory failure: Status: Acute (10) Decubitus ulcer: Status: Acute (11) Acute encephalopathy: Status: Acute Plan Bowel perforation Status post gastric bypass anastomosis 05/02 No postop complications Septic shock: Resolved Respiratory failure: Resolved, patient successfully extubated to room air 05/04 Lactic acidemia: Resolved Hypokalemia: Repleted Bilateral lower extremity edema, cold feet, chronically occluded vessels, peripheral arterial disease Consulted Dr. Nguyen Patient did not tolerate heparin currently she is on Plavix and atorvastatin Multiple decubitus ulcer No need of debridement for now Wet-to-dry dressing with Santyl UTI with VRE Continue linezolid Afebrile No leukocytosis Acute on chronic anemia status post 1 unit PRBC hemoglobin has been stable Mild serosanguineous discharge from Seamus drain No active signs of bleeding Patient carries guarded prognosis Chronically occluded vessels, no acute ischemic limb signs present, she seems to have good collateral flow on CTA abdominal aorta with runoff, will follow up with Dr. Nguyen's recommendation, No signs of DVT DVT prophylaxis not a good candidate for therapeutic dose of anticoagulating agent, avoid SCDs considering vascular disease If no plan for angiogram I will start her back on Lovenox low-dose DNR/DNI Attestations Medical Necessity Statement*: Continue medical management, discharge back to [facility] once ready Time Spent in Patient Care: 30mins Coding Level of Care Code Acute Law Instructor for g Fwd Diagnoses Hypokalemia E87.6 Anemia D64.9 Peripheral arterial disease I73.9 UTI (urinary tract infection) N39.0 Lactic acidosis E87.2 Septic shock A41.9; R65.21 Acute respiratory failure with hypoxia J96.01 Bowel perforation K63.1 Respiratory failure J96.90 Decubitus ulcer L89.90 Acute encephalopathy G93.40
[2021-05-07] MEDS: pantoprazole 40 mg SDV IVP ×2 (10:16→20:26)
--- NOTE | 2021-05-07 10:22 | PC.CHAP ---
Pastoral Care Encounter/Spiritual Assessment Type of Contact [] Declined electrode cleaning machine operator visit [] Patient/Family/Request visit [] Outpatient visit [] Follow-up visit [] Physician referral [] Code/Alert [x] Routine visit [] Staff referral [] Actively dying [x] Patient sleeping [] Family support [] [] Out of room [] Palliative care [] [] Receiving care in room [] Pre-surgical visit [] Trauma [] Long length of stay [] ICU visit [] Other: Relational/Emotional Strength [] Patient feels connected with others/family/visitors/staff [] Distress [] Loneliness/isolation [] Abandonment Spirituality of Patient [] Person of [place] [] Attends Presybeterian of their [place] [] Believes in Prayer [] Reads Bible or Samaritan materials [] There are Spiritual issues to be addressed Patents Examiner Interventions [] Prayer [] Active listening [] Non-anxious presence [] Spiritual/emotional support [] Crisis/trauma care [] Spiritual counseling [] Bereavement support [] Provided bereavement packet [] Provided Bible/devotional materials [] Provided toy/stuffed animal, coloring book to patient or family member [] Provided Communion [] Anointing/[place] [] Salvation [] Completed spiritual assessment [] Other: Impact on Illness or Injury [] Angry [] Fearful [] Anxious [] Often cries [] Exhaustion [] Unable to work [] Unable to attend baptist [] Unable to walk/stand [] Unable to read [] Unable to drive [] Unable to eat/drink [] Unable to sleep [] Unable to be with family [] Patient intubated [] Other: Summary Time spent with patient
[2021-05-07] MEDS: potassium chloride ER 20 mEq Tablet 40 MEQ PO (10:54)
[2021-05-07] MEDS: linezolid premix 600 MG/300 ML PREMIX 300 MG IV ×2 (10:54→21:00)
[2021-05-07 10:58] LABS: Glucose Point of Care 168 mg/dL (70-110)
--- NOTE | 2021-05-07 11:04 | P.CONIM_ITS ---
Providers/Reason For Consult Consulting Physician/Specialty*: Cardiovascular medicine Reason for Consult*: Lower extremity arterial vascular disease Requesting Physician: Hospitalist, Dr. Espinal Attending Physician: Lulú Espinal MD Primary Care Provider: Geeta AndersP-C History of Present Illness History of Present Illness Almita Mckinley is a 65 year old female who is in and out of the hospital frequently with multiple problems. She was admitted on 05 April with septic shock thought related to a multitude of decubitus ulcers. At that time she had hyperkalemia, metabolic acidosis, sepsis among others. She underwent surgery on 11 April to debride a number of the decubitus ulcers. She was discharged to a [facility] on the fifth of this month. Patient herself is not capable of giving a cogent history. She is oriented to person only. She does not know the date or time or the place. When I first walked in the room she asked me if the chair was wet. She has been readmitted this time on the now some 5 days ago with abdominal pain, very low oxygen saturations on room air and was intubated in the field. She was found to have a perforated bowel. Dr. Avery took her to the operating room that day and found a perforation at the gastric bypass site. He was able to repair this. She is also treated for a multitude of other medical problems which are listed in the past medical history. They are too numerous to list here. She is not being treated with aspirin or heparin secondary to surgery. She on Plavix and Lovenox. She has been extubated and moved up to the second floor. A few days ago she apparently had some duskiness of her toes and feet and her who walked in the room during my evaluation said that her feet were blue. She was briefly started on heparin and the lower extremity duskiness cleared up. Currently she has no evidence of gangrene, weeping ulcers, pain or other lower extremity vascular issues. Her feet are warm. She does not have good palpable pulses. She did have a CTA of the lower extremities the other day which revealed occluded bilateral anterior tibial arteries but patent femoral, popliteal vessels. She also has patent posterior tibial and peroneal vessels below the knee. She has some mild splanchnic vessel disease and moderate to severe bilateral renal artery stenosis. I have been asked to consider lower extremity angiography. Review of Systems Narrative: Review of systems is not possible given her mental state. Medications/Allergies Home Medications Medication Instructions Recorded Confirmed Last Taken Type fluticasone propionate 50 1 spray INTRANASAL DAILY@04/03/20 05/02/21 04/05/21 08:00 History mcg/actuation nasal spray,suspension (Allergy Relief (fluticasone)) pantoprazole 40 mg tablet,delayed 40 mg PO DAILY@06 04/03/20 05/02/21 04/05/21 08:00 History release simvastatin 40 mg tablet 40 mg PO DAILY@04/03/20 05/02/21 04/05/21 08:00 History albuterol sulfate 90 mcg/actuation 2 puff INHALATION QID 01/18/21 05/02/21 Unknown History aerosol inhaler meclizine 25 mg tablet 25 mg PO TID PRN 01/18/21 05/02/21 Unknown History quetiapine 25 mg tablet (Seroquel) 12.5 mg PO BID@01/18/21 05/02/21 04/05/21 08:00 History multivitamin 1 tab PO DAILY@03/23/21 05/02/21 04/05/21 08:00 History flash glucose scanning reader 04/05/21 05/02/21 Unknown History ([place] Axon Swathi 14 Day Moran) Lactobacillus rhamnosus GG 1 cap PO BID@05/02/21 05/02/21 Unknown History biotin 1 cap PO DAILY@08 05/02/21 05/02/21 Unknown History calcium carbonate 600 mg (1,500 1 tab PO DAILY@05/02/21 05/02/21 Unknown History mg)-vitamin D3 200 unit tablet clonazepam 0.5 mg tablet 0.5 mg PO BID PRN 05/02/21 05/02/21 Unknown History coenzyme Q10 100 mg capsule 100 mg PO TID@,,05/02/21 05/02/21 Unknown History (CoQ-10) ertapenem 1 gram solution for 1 g IV .EVERY 24 HOURS 05/02/21 05/02/21 Unknown History injection ferrous sulfate 325 mg (65 mg 325 mg PO .ON MON,WED,FRI 05/02/21 05/02/21 Unknown History iron) tablet,delayed release fluconazole 200 mg tablet 200 mg PO DAILY 05/02/21 05/02/21 Unknown History fluticasone furoate 100 1 ea INHALATION DAILY@08 05/02/21 05/02/21 Unknown History mcg-vilanterol 25 mcg/dose inhalation powder (Breo Ellipta) furosemide 20 mg tablet 20 mg PO DAILY@08 05/02/21 05/02/21 Unknown History gabapentin 300 mg capsule 300 mg PO TID@08,,05/02/21 05/02/21 Unknown History metoprolol tartrate 25 mg tablet 12.5 mg PO BID@,05/02/21 05/02/21 Unknown History midodrine 10 mg tablet 10 mg PO TID PRN 05/02/21 05/02/21 Unknown History sitagliptin 100 mg tablet (Januvia) 100 mg PO DAILY@08 05/02/21 05/02/21 Unknown History thiamine mononitrate (vit B1) 100 100 mg PO DAILY@08 05/02/21 05/02/21 Unknown H istory mg tablet (Vitamin B-1 (mononitrate)) venlafaxine 75 mg tablet 75 mg PO DAILY@05/02/21 05/02/21 Unknown History zinc oxide 1 applic TOPICAL TID PRN 05/02/21 05/02/21 Unknown History Allergies Allergy/AdvReac Type Severity Reaction Status Date / Time No Known Allergies Allergy Verified 05/02/21 10:26 Current Medications Generic Name Dose Route Start Last Admin Trade Name Freq PRN Reason Stop Dose Admin Atorvastatin Calcium 20 mg 05/05/21 21:00 05/06/21 20:47 Atorvastatin 40 Mg Tablet PO 20 mg BEDTIME MACK Administration Clopidogrel Bisulfate 75 mg 05/06/21 09:00 05/07/21 08:04 Clopidogrel 75 Mg Tablet PO 75 mg DAILY MACK Administration Collagenase 1 applic 05/03/21 10:45 05/07/21 08:11 Collagenase Oint 30 Gm TOPICAL 1 applic DAILY MACK Administration Enoxaparin Sodium 60 mg 05/05/21 07:30 05/05/21 07:47 Enoxaparin 60 Mg/0.6 Ml Syringe SUBCUT 60 mg Q12H MACK Administration Propofol 1,000 mg in 100 mls @ 0 mls/hr 05/02/21 03:00 05/03/21 15:15 Diprivan IV Infused .Q0M MACK Titration Protocol Per Protocol Norepinephrine Bitartrate 4 mg 254 mls @ 0 mls/hr 05/02/21 03:15 05/03/21 18:50 / Dextrose IV Infused .Q0M MACK Titration Protocol Per Protocol Dextrose 500 mls @ 100 mls/hr 05/02/21 05:02 05/03/21 22:55 D5w IV Infused ONCE PRN Infusion Adult Acute Hypoglycemia Prot Protocol Fluconazole 100 mg/ N/A 50 mls @ 50 mls/hr 05/02/21 08:00 05/07/21 09:50 IV Infused Q24H MACK Infusion Imipenem/Cilastatin Sodium 500 100 mls @ 200 mls/hr 05/03/21 14:00 05/07/21 06:47 mg/ Sodium Chloride IV Infused Q8H MACK Infusion Protocol Linezolid 600 mg in 300 mls @ 300 mls/hr 05/05/21 20:41 05/07/21 10:54 Zyvox Premix IV 300 mls/hr Q12H MACK Administration Protocol Insulin Human Lispro 0 unit 05/02/21 08:00 05/07/21 07:47 Insulin Lispro 100 Unit/1 Ml SUBCUT Not Given TIDWM MACK Protocol Labetalol HCl 10 mg 05/04/21 20:27 05/05/21 04:08 Labetalol 5 Mg/Ml Sdv 20ml IVP 10 mg Q4H PRN Administration HYPERTENSION Protocol Morphine Sulfate 1 mg 05/04/21 22:03 05/06/21 20:46 Morphine 4 Mg/Ml Sdv 1 Ml IVP 1 mg Q4H PRN Administration MODERATE TO SEVERE PAIN Pantoprazole Sodium 40 mg 05/02/21 05:00 05/07/21 10:16 Pantoprazole 40 Mg Sdv IVP 40 mg Q12H MACK Administration PFSH Acute PFSH: Medical History Anasarca Anxiety disorder Complete tear of right rotator cuff (~11/2020) COVID-19 DJD of right AC (acromioclavicular) joint GERD (gastroesophageal reflux disease) High anion gap metabolic acidosis History of alcohol dependence Hyperlipidemia Hypertension Hyperthyroidism Hypokalemia Hypotension Ileocolic intussusception Intertrochanteric fracture of left hip Lactic acidosis Macrocytic anemia Major depressive disorder Moderate protein-calorie malnutrition Physical deconditioning Pressure injury, unstageable, with eschar Refeeding syndrome Sarcoidosis diagnosis per available outside records, with patient stating onset in , details unknown, never put on specific treatment per report Sepsis Thrombocytopenia Type 2 diabetes mellitus UTI due to extended-spectrum beta lactamase (ESBL) producing Escherichia coli Vulvar carcinoma Surgical History History of carpal tunnel release History of gastric bypass [place] 2015 History of hip surgery left Family History Other Cancer Social History Smoking and tobacco status: former smoker Alcohol intake: former Number of children: 0 Vitals/I&O/Wt Last Vital Signs Temp 98.0 F 05/07/21 07:10 Pulse 89 05/07/21 09:09 Resp 16 05/07/21 09:09 BP 152/84 05/07/21 07:10 Pulse Ox 93 05/07/21 09:09 05/06/21 05/07/21 05/07/21 22:59 06:59 14:59 Intake Total 220 / 2491 400 / 2891 290 / 290 Output Total 200 / 250 90 / 90 Balance 220 / 2441 200 / 2641 200 / 200 Weight last 48 hrs Weight 139 lb 14.4 oz Weight 140 lb 4.8 oz Physical Exam Narrative: GENERAL: In general she is disoriented. She knows her name but does not know where she is, whether or not she is in the hospital and does not know the date or time HEENT: Exam within normal limits. NECK: Supple without jugular vein distention. The carotid upstroke is normal without bruits. BACK: Exam normal. LUNGS: Clear. HEART: Regular rate and rhythm. ABDOMEN: Benign without organomegaly or tenderness. There is a healing scar in the mid abdomen. The abdomen is soft. There are bowel sounds. EXTREMITIES: No edema. She has a few excoriations on the feet. Both of her lower legs are wrapped and I did not take the wraps off. NEUROLOGIC: No focal findings. She is disoriented to place and time. SKIN: She has multiple decubiti of the buttocks and lower extremities as noted previously. Urinary Catheter Management: Voss: Cath Placed During This Visit: no Reason for Continuing Indwelling Catheter: Acute Urinary Retention or Obstruction Data : 05/07/21 04:12 05/07/21 04:12 Micro: Microbiology 05/02/21 01:57 Blood Culture - Final Blood NO GROWTH AFTER 5 DAYS 05/02/21 01:38 Blood Culture - Final Blood NO GROWTH AFTER 5 DAYS Other data: I reviewed the CTA of the lower extremities as noted above. A&P Assessment and plan (1) Hypokalemia: Status: Acute (2) Anemia: Status: Acute (3) Peripheral arterial disease: Status: Acute (4) UTI (urinary tract infection): Status: Acute (5) NSTEMI (non-ST elevated myocardial infarction): Status: Acute (6) Lactic acidosis: Status: Acute (7) Septic shock: Status: Acute (8) Acute respiratory failure with hypoxia: Status: Acute (9) Bowel perforation: Status: Acute (10) Respiratory failure: Status: Acute (11) Decubitus ulcer: Status: Acute (12) High anion gap metabolic acidosis: Status: Acute (13) Acute encephalopathy: Status: Acute Plan Given her underlying state of health and the fact that she still does have two- vessel patent vessels below the knees and the femoral and popliteal arteries are patent we should treat this expectantly. Currently she is not in any danger with respect to critical limb ischemia. She has no evidence of gangrene. There is no pain, rubor or discoloration of her feet. Her underlying medical problems would warrant not doing anything about this at this time. Her overall health is such that she is a allowed natural patient. I spoke to her about this briefly but she does not really understand. I had a lengthy discussion with her Erik who understands the approach and agrees with it. I also spoke to Dr. Avery who will advance her diet. I also spoke to the hospitalist and we may treat her with any anticoagulant or antiplatelet agent as we see fit. Personally I would probably simply put her on Plavix alone. Please call us if there is anything we can do in the future but at this point I would continue to treat her medically for the foreseeable future. Consult Attestations Medical Necessity Statement: Patient has been in the hospital for several days and will require several more days of inpatient care prior to being transferred back to the fdc. Time Spent in Patient Care: 45 minutes Coding Level of Care Code New Pt Acute Mold Unloader for Chg Fwd Patient Type New History Comprehensive Exam Comprehensive Medical Decision Making High Complexity Diagnoses Hypokalemia E87.6 Anemia D64.9 Peripheral arterial disease I73.9 UTI (urinary tract infection) N39.0 NSTEMI (non-ST elevated myocardial infarction) I21.4 Lactic acidosis E87.2 Septic shock A41.9; R65.21 Acute respiratory failure with hypoxia J96.01 Bowel perforation K63.1 Respiratory failure J96.90 Decubitus ulcer L89.90 High anion gap metabolic acidosis E87.2 Acute encephalopathy G93.40 Time Spent (min) 60
--- NOTE | 2021-05-07 13:02 | PC.SOCIAL ---
IMM update IMM updated with patient's . Verbalized an understanding. Initialled, dated, timed, and placed in chart.
[2021-05-07] MEDS: insulin lispro 100 unit/1 mL SUBCUT ×2 (13:21→18:24)
[2021-05-07] MEDS: morphine 4 mg/mL SDV 1 mL 1 MG IVP (13:32)
[2021-05-07 16:56] LABS: Glucose Point of Care 165 mg/dL (70-110)
[2021-05-07] MEDS: atorvastatin 40 mg Tablet 20 MG PO (20:26)
[2021-05-07 22:19] LABS: Glucose Point of Care 105 mg/dL (70-110)
[2021-05-08] VITALS (10 sets, daily range): BP systolic 116–155; BP diastolic 68–87; PULSE 75–124; RESP 16–18; TEMP 36.4–37.3; O2SAT 92–96
[2021-05-08 05:19] LABS: Basophils % 0.4 %; Eosinophils % 0.1 %; Hematocrit 31.2 % (37.0-47.0); Hemoglobin 10.1 g/dL (11.5-15.3); Lymphocytes # 1.6 10^3/uL (0.8-4.8); Lymphocytes % 14.6 %; Mean Corpuscular HGB Conc 32.4 g/dL (30.0-36.0); Mean Corpuscular Hemoglobin 31.8 pg (28.0-34.0); Mean Corpuscular Volume 98.1 fl (81-99); Mean Platelet Volume 10.8 fL (7.4-10.4); Monocytes # 0.9 10^3/uL (0.2-0.9); Monocytes % 7.8 %; Neutrophils # 8.27 10^3/uL (1.8-7.7); Neutrophils % 76.3 %; Nucleated Red Blood Cells % 0 %; Platelet Count 165 10^3/cmm (130-400); Red Blood Count 3.18 10^6/uL (4.1-5.3); Red Cell Distribution Width 17.9 % (12.1-15.1); White Blood Count 10.8 10^3/uL (4.0-10.0)
[2021-05-08 05:47] LABS: Anion Gap 13.9 (5-19); Blood Urea Nitrogen 7 mg/dL (8-23); Calcium 7.9 mg/dL (8.5-10.5); Carbon Dioxide 24 mmol/L (22-29); Chloride 101 mmol/L (98-107); Glomerular Filtration Rate 356.5 mL/min (90-130); Glucose 64 mg/dL (65-115); Magnesium 1.4 mg/dL (1.7-2.3); Osmolality Calculated 276 mOsm/kg (285-295); Potassium 3.9 mmol/L (3.5-5.1); Sodium 135 mmol/L (136-145)
[2021-05-08 06:18] LABS: Glucose Point of Care 68 mg/dL (70-110)
[2021-05-08] MEDS: collagenase oint 30 gm 1 APPLIC TOPICAL (07:44)
[2021-05-08] MEDS: clopidogrel 75 mg Tablet PO (07:44)
[2021-05-08] MEDS: magnesium sulfate premix 2 GM/50 ML PIGGYBACK IV (07:44)
[2021-05-08] MEDS: pantoprazole 40 mg SDV IVP ×2 (08:48→21:25)
[2021-05-08] MEDS: morphine 4 mg/mL SDV 1 mL 1 MG IVP ×3 (10:44→21:25)
[2021-05-08] MEDS: fluconazole premix 100 MG in empty flexible container 1 EACH 50 MG IV (11:05)
[2021-05-08] MEDS: linezolid premix 600 MG/300 ML PREMIX 300 MG IV ×2 (11:05→21:25)
[2021-05-08 11:21] LABS: Glucose Point of Care 183 mg/dL (70-110)
--- NOTE | 2021-05-08 11:25 | P.PN_ITS ---
Subjective Subjective: This morning patient did not endorse any new complaints. She will be discharged back to [facility] once we get authorization from [facility], appreciate Dr. Nguyen's recommendations Vitals/I&O/Wt Last Vital Signs Temp 97.6 F 05/08/21 07:11 Pulse 110 H 05/08/21 07:57 Resp 16 05/08/21 10:44 BP 124/73 05/08/21 07:11 Pulse Ox 95 05/08/21 07:57 05/07/21 05/08/21 05/08/21 22:59 06:59 14:59 Intake Total 450 / 1500 100 / 1600 410 / 410 Output Total 215 / 305 350 / 655 Balance 235 / 1195 -250 / 945 410 / 410 Weight last 48 hrs Weight 63.458 kg Weight 63.458 kg Physical Exam Narrative: Patient is laying in her bed No active complaint Tolerating her diet No abdominal pain, elliott in place No active necrotic ulceration noted of multiple decubitus ulcers Voss catheter draining dilute urine Nonfocal neuro exam Patient is awake and alert much more coherent as compared to yesterday Urinary Catheter Management: Voss: Cath Placed During This Visit: no Reason for Continuing Indwelling Catheter: Assist Healing of Perineal & Sacral Wounds- Incontinent Patients Data : 05/08/21 04:30 05/08/21 04:30 A&P Assessment and plan (1) Hypokalemia: Status: Acute (2) Anemia: Status: Acute (3) Peripheral arterial disease: Status: Acute (4) UTI (urinary tract infection): Status: Acute (5) Lactic acidosis: Status: Acute (6) Septic shock: Status: Acute (7) Acute respiratory failure with hypoxia: Status: Acute (8) Bowel perforation: Status: Acute (9) Decubitus ulcer: Status: Acute (10) Acute encephalopathy: Status: Acute Plan Bowel perforation status post intervention Patient tolerating her diet Intervention was on 05/02 Peripheral vascular disease medical management continue Plavix and atorvastatin Multiple decubitus ulcer: Wet-to-dry with Santyl no need of debridement UTI with VRE continue linezolid De-escalate Primaxin Bilateral extremity edema no signs of DVT Acute on chronic anemia status post 1 unit PRBC hemoglobin is staying stable DNR/DNI Patient will be discharged back to [facility] once get accepted Septic shock has resolved Replenish magnesium, potassium 3.9 Calcium 7.9: Repleted Attestations Medical Necessity Statement*: Awaiting placement Time Spent in Patient Care: 20 Coding Level of Care Code Acute Frame Sample And Pattern Supervisor for Chg Fwd Diagnoses Hypokalemia E87.6 Anemia D64.9 Peripheral arterial disease I73.9 UTI (urinary tract infection) N39.0 Lactic acidosis E87.2 Septic shock A41.9; R65.21 Acute respiratory failure with hypoxia J96.01 Bowel perforation K63.1 Decubitus ulcer L89.90 Acute encephalopathy G93.40
--- NOTE | 2021-05-08 11:36 | PM.PN ---
Subjective Subjective: The patient says she is tolerating a GI soft diet. She has no new complaints. Vitals/I&O/Wt Last Vital Signs Temp 97.6 F 05/08/21 07:11 Pulse 110 H 05/08/21 07:57 Resp 16 05/08/21 10:44 BP 124/73 05/08/21 07:11 Pulse Ox 95 05/08/21 07:57 05/07/21 05/08/21 05/08/21 22:59 06:59 14:59 Intake Total 450 / 1600 100 / 1600 410 / 410 Output Total 215 / 655 350 / 655 Balance 235 / 945 -250 / 945 410 / 410 Weight last 48 hrs Weight 139 lb 14.4 oz Weight 139 lb 14.4 oz Physical Exam Narrative: The patient continues to have a little serosanguineous drainage from the lower portion of her midline incision where her skin staple came out. Everything otherwise appears to be healing well. There is only a small amount of serosanguineous fluid in the Seamus bulb. Urinary Catheter Management: Voss: Cath Placed During This Visit: no Reason for Continuing Indwelling Catheter: Assist Healing of Perineal & Sacral Wounds- Incontinent Patients Data : 05/08/21 04:30 05/08/21 04:30 A&P Assessment and plan (1) Bowel perforation: Status post repair of disrupted gastric bypass anastomosis on 05/02/2021. She appears to be getting more stable. Continue current treatment. Continue local wound care. From a surgical standpoint, I think the [facility]. I am probably going to keep her drain in place for another week or so. Status: Acute Attestations Medical Necessity Statement*: See admitting service's notation. Coding Level of Care Code Acute Iso Coordinator for Paola De Los Santos Diagnoses Bowel perforation K63.1
[2021-05-08] MEDS: insulin lispro 100 unit/1 mL SUBCUT ×2 (12:37→17:44)
[2021-05-08] MEDS: potassium chloride ER 20 mEq Tablet 40 MEQ PO (12:37)
[2021-05-08 17:03] LABS: Glucose Point of Care 218 mg/dL (70-110)
[2021-05-08] MEDS: magnesium oxide 400 mg tablet PO (17:44)
[2021-05-08] MEDS: atorvastatin 40 mg Tablet 20 MG PO (21:25)
[2021-05-08 21:35] LABS: Glucose Point of Care 132 mg/dL (70-110)
[2021-05-09] VITALS (13 sets, daily range): BP systolic 100–148; BP diastolic 49–90; PULSE 0–116; RESP 17–18; TEMP 36.3–36.8; O2SAT 90–98
--- NOTE | 2021-05-09 00:46 | PC.NURSE ---
i reported high pulse 116 to nurse
--- NOTE | 2021-05-09 04:46 | PC.NURSE ---
i reported high pulse 108 to nurse
[2021-05-09 06:25] LABS: Glucose Point of Care 96 mg/dL (70-110)
[2021-05-09 07:55] LABS: Basophils # 0.1 10^3/uL (0.0-0.1); Basophils % 0.3 %; Eosinophils % 0.1 %; Hematocrit 30.4 % (37.0-47.0); Lymphocytes # 1.3 10^3/uL (0.8-4.8); Lymphocytes % 9.3 %; Mean Corpuscular HGB Conc 32.9 g/dL (30.0-36.0); Mean Corpuscular Volume 100.3 fl (81-99); Mean Platelet Volume 10.5 fL (7.4-10.4); Monocytes # 0.6 10^3/uL (0.2-0.9); Neutrophils # 12.27 10^3/uL (1.8-7.7); Neutrophils % 85.2 %; Nucleated Red Blood Cells % 0 %; Platelet Count 206 10^3/cmm (130-400); Red Blood Count 3.03 10^6/uL (4.1-5.3); Red Cell Distribution Width 17.6 % (12.1-15.1); White Blood Count 14.4 10^3/uL (4.0-10.0)
[2021-05-09 08:00] LABS: Anion Gap 14.7 (5-19); Blood Urea Nitrogen 8 mg/dL (8-23); Calcium 7.8 mg/dL (8.5-10.5); Carbon Dioxide 22 mmol/L (22-29); Chloride 102 mmol/L (98-107); Glomerular Filtration Rate 223.3 mL/min (90-130); Glucose 111 mg/dL (65-115); Osmolality Calculated 277 mOsm/kg (285-295); Potassium 4.7 mmol/L (3.5-5.1); Sodium 134 mmol/L (136-145)
--- NOTE | 2021-05-09 08:21 | PC.SOCIAL ---
IMM Update pg 2 of IMM updated and reviewed w/ patients via phone. Copy in chart updated and Copy placed w/ patients DC folder in room.
[2021-05-09] MEDS: linezolid premix 600 MG/300 ML PREMIX 300 MG IV ×2 (09:14→21:23)
[2021-05-09] MEDS: collagenase oint 30 gm 1 APPLIC TOPICAL (09:15)
[2021-05-09] MEDS: clopidogrel 75 mg Tablet PO (09:25)
[2021-05-09] MEDS: magnesium oxide 400 mg tablet PO ×2 (09:25→18:14)
[2021-05-09] MEDS: pantoprazole 40 mg SDV IVP ×2 (09:26→21:23)
--- NOTE | 2021-05-09 09:33 | PM.PN ---
Subjective Subjective: The patient seems more alert today but remains somewhat confused. She denies any abdominal pain and says she is eating well. Vitals/I&O/Wt Last Vital Signs Temp 98.2 F 05/09/21 07:16 Pulse 92 05/09/21 07:16 Resp 18 05/09/21 07:16 BP 124/73 05/09/21 07:16 Pulse Ox 95 05/09/21 08:12 05/08/21 05/09/21 05/09/21 22:59 06:59 14:59 Intake Total 640 / 1640 0 / 1640 240 / 240 Output Total 0 / 0 Balance 640 / 1640 0 / 1640 240 / 240 Weight last 48 hrs Weight 135 lb 8 oz Weight 139 lb 14.4 oz Physical Exam Narrative: The midline dressing is dry this morning. She has some serosanguineous fluid in the Seamus bulb. Urinary Catheter Management: Voss: Cath Placed During This Visit: no Reason for Continuing Indwelling Catheter: Assist Healing of Perineal & Sacral Wounds- Incontinent Patients Data : 05/09/21 07:28 05/09/21 07:28 A&P Assessment and plan (1) Bowel perforation: Status post repair of disrupted gastric bypass anastomosis on 05/02/2021. She appears stable. Continue current treatment. Continue local wound care. From a surgical standpoint, I think the patient can return in the [facility] at any time. I am probably going to keep her drain in place for another week or so. Status: Acute Attestations Medical Necessity Statement*: See admitting service's notation. Coding Level of Care Code Acute Turf Sales Person for Paola De Los Santos Diagnoses Bowel perforation K63.1
[2021-05-09 10:54] LABS: Glucose Point of Care 228 mg/dL (70-110)
[2021-05-09 11:20] LABS: Glucose Point of Care 252 mg/dL (70-110)
--- NOTE | 2021-05-09 12:10 | PM.PN ---
Subjective Subjective: patient seen a bit confused as compared to yesterday, oriented to herself, she kept mentioning name of her Vitals/I&O/Wt Last Vital Signs Temp 98.2 F 05/09/21 11:14 Pulse 107 H 05/09/21 11:14 Resp 18 05/09/21 11:14 BP 116/68 05/09/21 11:14 Pulse Ox 93 05/09/21 11:14 05/08/21 05/09/21 05/09/21 22:59 06:59 14:59 Intake Total 640 / 1640 0 / 1640 540 / 540 Output Total 0 / 0 Balance 640 / 1640 0 / 1640 540 / 540 Weight last 48 hrs Weight 61.462 kg Weight 63.458 kg Physical Exam Narrative: Looks comfortable however only oriented to herself She is not wearing her hospital patient down Was covered and blanket Seamus drain still in place Minimal drainage Tolerating her diet Saturating well on room air Awake and alert oriented to herself only Moving all of her extremities Multiple staged ulcers all over her body Urinary Catheter Management: Voss: Cath Placed During This Visit: no Reason for Continuing Indwelling Catheter: Assist Healing of Perineal & Sacral Wounds- Incontinent Patients Data : 05/09/21 07:28 05/09/21 07:28 A&P Assessment and plan (1) Hypokalemia: Status: Acute (2) Anemia: Status: Acute (3) Peripheral arterial disease: Status: Acute (4) UTI (urinary tract infection): Status: Acute (5) Lactic acidosis: Status: Acute (6) Septic shock: Status: Acute (7) Acute respiratory failure with hypoxia: Status: Acute (8) Bowel perforation: Status: Acute (9) Decubitus ulcer: Status: Acute (10) Acute encephalopathy: Status: Acute Plan Continue medical management for peripheral arterial disease Wet-to-dry wound dressing with Santyl for her multiple decubitus ulcers Septic shock resolved Patient is doing well after extubation on room air Bowel perforation status post gastric bypass anastomosis 05/02, Dr. Avery recommended keeping Seamus drain in place for about a week Awaiting halfway placement UTI: Continue linezolid until day of discharge Antifungal, Primaxin discontinued Acute on chronic anemia status post 1 unit PRBC hemoglobin stable DNR/DNI Attestations Medical Necessity Statement*: Awaiting placement Time Spent in Patient Care: 15mins Coding Level of Care Code Acute Electrician Powerhouse for Chg Fwd Diagnoses Hypokalemia E87.6 Anemia D64.9 Peripheral arterial disease I73.9 UTI (urinary tract infection) N39.0 Lactic acidosis E87.2 Septic shock A41.9; R65.21 Acute respiratory failure with hypoxia J96.01 Bowel perforation K63.1 Decubitus ulcer L89.90 Acute encephalopathy G93.40
[2021-05-09] MEDS: insulin lispro 100 unit/1 mL SUBCUT ×2 (12:52→18:14)
--- NOTE | 2021-05-09 15:05 | PC.NURSE ---
MARIO Drain had 50mL of serosanguineous drainage.
[2021-05-09 17:12] LABS: Glucose Point of Care 182 mg/dL (70-110)
[2021-05-09 21:08] LABS: Glucose Point of Care 41 mg/dL (70-110)
[2021-05-09] MEDS: atorvastatin 40 mg Tablet 20 MG PO (21:23)
[2021-05-10] VITALS (8 sets, daily range): BP systolic 135–142; BP diastolic 78–84; PULSE 0–107; RESP 16–18; TEMP 36.4–36.7; O2SAT 91–96
--- NOTE | 2021-05-10 04:39 | PC.NURSE ---
Pt lying in bed talking very confused. Resp even and non-labored no distress noted. Pt had no c/o pain or discomfort at the present time. No needs voiced. Call light in reach.
[2021-05-10 06:41] LABS: Glucose Point of Care 29 mg/dL (70-110)
[2021-05-10 06:41] LABS: Glucose Point of Care 43 mg/dL (70-110)
[2021-05-10 06:47] LABS: Glucose Point of Care 39 mg/dL (70-110)
[2021-05-10 08:30] LABS: Glucose Point of Care 190 mg/dL (70-110)
--- NOTE | 2021-05-10 08:36 | P.DS_ITS ---
Discharge Providers Date of Admission: 05/02/21 06:16 Date of Discharge: May 10, 2021 Attending Provider at Admission: Haja Garza MD Attending Provider at Discharge: Lulú Espinal MD Primary Care Provider: Geeta AndersP-C Diagnoses at Discharge Discharge Diagnosis (1) Hypokalemia: Status: Acute (2) Anemia: Status: Acute (3) Peripheral arterial disease: Status: Acute (4) UTI (urinary tract infection): Status: Acute (5) Lactic acidosis: Status: Acute (6) Septic shock: Status: Acute (7) Acute respiratory failure with hypoxia: Status: Acute (8) Bowel perforation: Status: Acute (9) Decubitus ulcer: Status: Acute (10) Acute encephalopathy: Status: Acute Reason for Visit Reason for Visit: RESP. DISTRESS Hospital Course Hospital Course Admitting note by Dr. Haja Recio Arlen is a 65 year old female with a past medical history of noninsulin- dependent type 2 diabetes mellitus, history of left hip fracture, COVID-19 infection, refeeding syndrome, history of alcohol abuse, history of lactic acidosis, anxiety, depression, protein calorie malnutrition, history of decubitus ulcer, history of ESBL E. coli UTI, history of decubitus ulcer, recent history of ileocolonic intussusception, recent multiple hospital admissions for sepsis secondary to lower extremity cellulitis and ESBL E. coli UTI, requiring debridement, developed DIC requiring platelet and RBC transfusion,, also with a superficial venous thrombosis in the right cephalic vein who presents to [facility] for shortness of breath abdominal pain.? She is currently at retirement facility, she had complaints of abdominal pain along with shortness of breath, pulse ox was 60s on room air, placed on oxygen, on route she became increasingly short of breath and hypoxic, she was intubated in the field.? In the emergency room she was found to have a bowel perforation, lactic acidosis, respiratory failure she is placed on pressor therapies, central line in place, general surgery has been called, she is being taken immediately to the operating room.? During my examination, she is intubated, sedated on pressors, propofol, Levophed, she is receiving bag mask ventilation as she is being taken to the operating room.? is at bedside.? She does have bilateral extremity 1+ pitting edema. Hospital course Status post repair of disrupted gastric bypass anastomosis on 05/02. Patient was intubated in the field. She was started on antifungal and broad-spectrum antibiotics. Her vent settings were minimal. She was successfully extubated to room air on 05/04. Her septic shock improved, she remained afebrile, cultures remain negative. Urine culture showed yeast/Maricruz. She received 1 unit PRBC when I started heparin for mottled appearance of the toes which I noticed when she was on vasopressor Levophed at 8 mics. Next day her hemoglobin dropped however no active source of bleeding was found, she was given 1 unit PRBC. Color of toes improved, however they were cold, CTA aorta with runoff obtained which showed peripheral arterial disease, cardiology was consulted. Dr. Kwok recommended conservative/medical management with Plavix and atorvastatin. is well aware that she is at risk of further worsening and amputation. She has multiple ulcers all over her body at different stages, wet-to-dry dressing with Santyl was used, no active debridement needed. She follows up with wound care clinic. Her mentation is waxing and waning. She remains oriented to herself. She starts complaining about her that he has abandoned her. has been visiting her on daily basis. On 05/10 she was discharged back to [facility] alf, central line will be removed. She will be discharged with a Voss catheter, there is hematuria however urine color is yellow in the tube, asked nurse for manual irrigation before we release her back to the alf. Hemoglobin remained stable. Her goals of care changed during this admission from full code to DNR/DNI. Hemoglobin at discharge 10.0. She received linezolid for Enterococcus faecium VRE and at the time of discharge she will get nitrofurantoin, culture and sensitivity reviewed. Patient is at risk of amputation, septic shock due to multiple decubitus ulcers, she is bedbound, carries guarded prognosis. is well aware. Drain will be removed by Dr. Avery, alf will just drainage on as needed basis Physical Exam Narrative: Patient is oriente d to herself comfo rtably in her bed No active complain t Tolerating her d iet No abdominal p ain, elliott in pl evan No active necr otic ulceration no carlos alberto of multiple de cubitus ulcers Fol ey catheter draini ng dilute urine No nfocal neuro exam Patient is awake a nd alert much more coherent as sherrie red to yesterday Urinary Catheter M anagement:?? Voss: Cath Placed During This Visit : no Reason for Co ntinuing Indwellin g Catheter: Assist Healing of Perine al & Sacral Wounds - Incontinent Libby ents Urinary Catheter Management: Voss: Cath Placed During This Visit: no Reason for Continuing Indwelling Catheter: Assist Healing of Perineal & Sacral Wounds- Incontinent Patients Discharge Data Studies Completed and Pending Completed Studies During Hospitalization Category Date Time Status CT abdomen pelvis wo con [id number] Stat Cat Scan 05/02/21 02:35 Completed CTA abdominal aorta [CT angio abd aorta runof [id number]] Cat Scan 05/04/21 11:46 Completed Routine XR chest 1V portable [id number] Routine Exams 05/03/21 07:00 Completed XR chest 1V portable [id number] Stat Exams 05/02/21 01:56 Completed XR chest 1V portable [id number] Stat Exams 05/02/21 03:24 Completed XR chest 1V portable [id number] Urgent Exams 05/02/21 01:34 [place] [id number] Routine Ultrasound 05/02/21 06:33 Completed US venous duplex lower extremity bilat [CV venous Ultrasound 05/06/21 11:27 [place] [id number]] Routine Pending at discharge Category Date Time Status Miscellaneous Test Routine Lab 05/02/21 07:00 Received Radiology Impressions Abdomen/Pelvis CT 05/02/21 02:35 IMPRESSION: 1. Large pneumoperitoneum throughout the anterior portion of the peritoneal cavity consistent with bowel perforation. 2. Interval appearance of free fluid the right pericolic gutter and pelvis consistent with bowel perforation. 3. Continued gastric bypass surgery. 4. Enteric tube tip in the stomach. 5. Possible bowel perforation in the right anterior wall of the stomach, axial series 2, images 20-21. 6. Voss balloon catheter in the urinary bladder. 7. Stable anasarca consistent with right heart failure versus hypoproteinemia versus renal failure. ADDENDUM: 05/02/21 0341 THIS REPORT CONTAINS FINDINGS THAT MAY BE CRITICAL TO PATIENT CARE. The findings were verbally communicated via telephone conference with BRIANA SANDERSON at 3:39 AM CDT on 05/02/2021. The findings were acknowledged and understood. Chest X-Ray 05/03/21 07:00 IMPRESSION: 1. Similar layering right pleural effusion. 2. Endotracheal tube terminates approximately 4 cm above the shari. 3. Enteric tube terminates in the region of the gastric cardia with side port in the region of the distal esophagus. Aorta w/Runoff CTA 05/04/21 11:46 IMPRESSION: 1. Occlusion of the bilateral anterior tibial arteries at the origins. 2. The bilateral peroneal arteries provide some collateralized flow to the anterior feet with moderate disease on the right and mild disease on the left. 3. Moderate stenoses at the origins of the celiac and superior mesenteric arteries. 4. Moderate-severe stenoses at the origins of the left and right renal arteries. 5. Small amount of pneumoperitoneum is consistent with recent abdominal surgery. 6. Mild ascites. Laboratory Results WBC 14.4 10^3/uL (4.0-10.0) H 05/09/21 07:28 RBC 3.03 10^6/uL (4.1-5.3) L 05/09/21 07:28 Hgb 10.0 g/dL (11.5-15.3) L 05/09/21 07:28 Hct 30.4 % (37.0-47.0) L 05/09/21 07:28 MCV 100.3 fl (81-99) H 05/09/21 07:28 MCH 33.0 pg (28.0-34.0) 05/09/21 07:28 MCHC 32.9 g/dL (30.0-36.0) 05/09/21 07:28 RDW 17.6 % (12.1-15.1) H 05/09/21 07:28 Plt Count 206 10^3/cmm (130-400) 05/09/21 07:28 MPV 10.5 fL (7.4-10.4) H 05/09/21 07:28 Neut % (Auto) 85.2 % 05/09/21 07:28 Lymph % (Auto) 9.3 % 05/09/21 07:28 [place] % (Auto) 4.0 % 05/09/21 07:28 Eos % (Auto) 0.1 % 05/09/21 07:28 Baso % (Auto) 0.3 % 05/09/21 07:28 Neut # (Auto) 12.27 10^3/uL (1.8-7.7) H 05/09/21 07:28 Lymph # (Auto) 1.3 10^3/uL (0.8-4.8) 05/09/21 07:28 [place] # (Auto) 0.6 10^3/uL (0.2-0.9) 05/09/21 07:28 Eos # (Auto) 0.0 10^3/uL (0.0-0.8) 05/09/21 07:28 Baso # (Auto) 0.1 10^3/uL (0.0-0.1) 05/09/21 07:28 Nucleated RBC % (auto) 0 % 05/09/21 07:28 Nucleated RBCs # 0.0 /100WBC 05/09/21 07:28 PT 25.50 SECONDS (12.1-14.9) H 05/03/21 05:05 PT Cancelled 05/03/21 05:05 INR 2.27 (0.8-1.2) H 05/03/21 05:05 INR Cancelled 05/03/21 05:05 APTT > 250.0 SECONDS (23.9-36.7) H* D 05/03/21 05:05 Fibrinogen 248 mg/dL (174-498) 05/02/21 06:55 Fibrin Degrad Products TNP 05/02/21 06:55 D-Dimer 6.74 ug/mIFEU (0-0.59) H 05/06/21 12:56 Specimen Type Arterial 05/04/21 05:00 Sample Site Radial, right 05/04/21 05:00 ABG pH 7.49 (7.35-7.45) H 05/04/21 05:00 ABG pCO2 35.6 mmHg (35-45) 05/04/21 05:00 ABG pO2 84.6 mmHg (80.0-100.0) 05/04/21 05:00 ABG HCO3 26.8 mmol/L (22-26) H 05/04/21 05:00 ABG Base Excess 3.4 mmol/L (-2.0-2.0) H 05/04/21 05:00 Jeferson Test Pos 05/04/21 05:00 Hematocrit 33.5 % (37-47) L 05/04/21 05:00 O2 Delivery Device Vent 03/25/22 05:00 FiO2 21.0 % 05/04/21 05:00 Tidal Volume 0.40 05/04/21 05:00 PEEP 5.0 cmH20 05/04/21 05:00 Line Painting Machine Operator ID Ba 05/04/21 05:00 Sodium 134 mmol/L (136-145) L 05/09/21 07:28 Potassium 4.7 mmol/L (3.5-5.1) 05/09/21 07:28 Chloride 102 mmol/L (98-107) 05/09/21 07:28 Carbon Dioxide 22 mmol/L (22-29) 05/09/21 07:28 Anion Gap 14.7 (5-19) 05/09/21 07:28 BUN 8 mg/dL (8-23) 05/09/21 07:28 Creatinine 0.3 mg/dL (0.5-0.9) L 05/09/21 07:28 GFR Calculation 223.3 mL/min (90-130) H 05/09/21 07:28 Glucose 111 mg/dL (65-115) 05/09/21 07:28 POC Glucose 190 mg/dL (70-110) H 05/10/21 08:22 Calculated Osmolality 277 mOsm/kg (285-295) L 05/09/21 07:28 Lactic Acid 2.2 mmol/L (0.5-2.2) 05/03/21 05:05 Lactic Acid (Sepsis) 2.0 mmol/L (0.5-2.2) 05/03/21 07:54 Lactate 1.6 mmol/L (0.5-2.2) 05/05/21 04:18 Calcium 7.8 mg/dL (8.5-10.5) L 05/09/21 07:28 Phosphorus 3.4 mg/dL (2.5-4.5) 05/06/21 04:02 Magnesium 1.4 mg/dL (1.7-2.3) L 05/08/21 04:30 Total Bilirubin 1.4 mg/dL (0.15-1.2) H 05/05/21 04:18 AST 14 U/L (0-32) 05/05/21 04:18 ALT 9 U/L (0-33) 05/05/21 04:18 Alkaline Phosphatase 176 IU/L (35-105) H 05/05/21 04:18 Creatine Kinase 22 U/L (26-192) L 05/05/21 04:18 Troponin T Baseline 56 ng/L (0-10) H 05/02/21 01:38 Troponin T 120 Minute 53.12 ng/L (0-10) H 05/02/21 03:34 Delta Troponin T -2.88 ABS# (0-10) L 05/02/21 03:34 Troponin T Hi Sens 6Hr 56.69 ng/L (0-10) H 05/02/21 06:55 Troponin T Hi Sens 6Hr Delta 0.69 ng/L (0-12) 05/02/21 06:55 C-Reactive Protein 229.6 mg/L (0.0-4.9) H 05/05/21 04:18 NT-Pro-B Natriuret Pep 4706 pg/mL (0-125) H 05/03/21 05:05 Total Protein 4.5 g/dL (6.6-8.7) L 05/05/21 04:18 Albumin 2.2 g/dL (3.5-5.2) L 05/05/21 04:18 Globulin 2.3 g/dL (1.3-4.6) 05/05/21 04:18 Procalcitonin 16.88 ng/mL (0-0.5) H 05/03/21 05:05 Procalcitonin Cancelled 05/03/21 05:05 TSH 3.25 uIU/mL (0.27-4.20) 05/03/21 05:05 Urine Color Dark yellow (Yellow) 05/02/21 01:52 Urine Appearance Sl hazy (CLEAR) 05/02/21 01:52 Urine pH 5 (5-7) 05/02/21 01:52 Ur Specific [place] 1.020 (1.005-1.030) 05/02/21 01:52 Urine Protein 1+ (Negative) H 05/02/21 01:52 Urine Glucose (UA) Norm (Normal) 05/02/21 01:52 Urine Ketones Negative (Negative) 05/02/21 01:52 Urine Blood 2+ (Negative) H 05/02/21 01:52 Urine Nitrate Negative (Negative) 05/02/21 01:52 Urine Bilirubin 1+ (Negative) H 05/02/21 01:52 Urine Urobilinogen 1 mg/dL (Negative) H 05/02/21 01:52 Ur Leukocyte Esterase 2+ (Negative) H 05/02/21 01:52 Urine RBC 0-4 /hpf (0-2) H 05/02/21 01:52 Urine WBC 15-25 /hpf (0-5) H 05/02/21 01:52 Ur Squamous Epith Cells 0-4 /hpf (0-5) H 05/02/21 01:52 Amorphous Sediment Not Reportable 05/02/21 01:52 Urine Bacteria Trace /hpf (NONE) 05/02/21 01:52 Urine Yeast 4+ /hpf H 05/02/21 01:52 Vancomycin Trough 21.7 ug/mL (10-15) H 05/03/21 14:09 Random Vancomycin 17.3 ug/mL (20.0-40.0) L 05/04/21 03:15 Blood Type A Positive 05/03/21 06:44 Rho(D) Type Positive 05/03/21 06:44 Antibody Screen Negative 05/03/21 06:44 Crossmatch See Detail 05/03/21 06:44 Vitals Last Vital Signs Temp 97.6 F 05/10/21 08:00 Pulse 107 H 05/10/21 08:00 Resp 16 05/10/21 08:00 BP 135/79 05/10/21 08:00 Pulse Ox 91 05/10/21 08:00 Discharge Plan Discharge Patient Disposition: Xfer SNF Condition: Stable Prescriptions: New atorvastatin 40 mg Tablet 20 mg PO BEDTIME Qty: 90 3RF clopidogrel 75 mg Tablet 75 mg PO DAILY Qty: 90 3RF oxycodone 5 mg Tablet 10 mg PO Q4H PRN (Reason: Severe Pain) Qty: 10 0RF Santyl 250 unit/gram ointment 1 applic topical BID Qty: 90 4RF Macrobid 100 mg capsule 100 mg PO BID 5 Days Qty: 10 0RF Rx Instructions: must administer with a meal/food Continued fluticasone propionate [Allergy Relief (fluticasone)] 50 mcg/actuation spray,suspension 1 spray intranasal DAILY@08 0RF Rx Instructions: administer into each nostril pantoprazole 40 mg tablet,delayed release (DR/EC) 40 mg PO DAILY@06 0RF simvastatin 40 mg tablet 40 mg PO DAILY@20 0RF multivitamin Tablet 1 tab PO DAILY@08 0RF quetiapine [Seroquel] 25 mg Tablet 12.5 mg PO BID@08,20 0RF albuterol sulfate 90 mcg/actuation Hfa Aerosol Inhaler 2 puff INHALATION QID 0RF (DME) Haley Swathi 14 Day [place] Misc MISCELLANEOUS 0RF venlafaxine 75 mg tablet 75 mg PO DAILY@08 0RF clonazepam 0.5 mg Tablet 0.5 mg PO BID PRN (Reason: Anxiety) 0RF calcium carbonate-vitamin D3 600 mg(1,500mg) -200 unit Tablet 1 tab PO DAILY@08 0RF gabapentin 300 mg Capsule 300 mg PO TID@08,16,20 0RF midodrine 10 mg tablet 10 mg PO TID PRN (Reason: unknown) 0RF CoQ-10 100 mg Capsule 100 mg PO TID@08,16,20 0RF zinc oxide Ointment 1 applic TOPICAL TID PRN (Reason: unknown) 0RF Breo Ellipta 100-25 mcg/dose blister with device 1 ea INHALATION DAILY@08 0RF Lactobacillus rhamnosus GG 1 cap PO BID@08,20 0RF biotin 1 cap PO DAILY@08 0RF ferrous sulfate 325 mg (65 mg iron) tablet,delayed release (DR/EC) 325 mg PO .ON MON,WED,FRI 0RF metoprolol tartrate 25 mg tablet 12.5 mg PO BID@08,20 0RF Januvia 100 mg tablet 100 mg PO DAILY@08 0RF Vitamin B-1 (mononitrate) 100 mg tablet 100 mg PO DAILY@08 0RF fluconazole 200 mg Tablet 200 mg PO DAILY Qty: 10 0RF Rx Instructions: for 5 days Changed furosemide 20 mg tablet 20 mg PO PRN PRN (Reason: swelling) Qty: 0 0RF Discontinued meclizine 25 mg Tablet 25 mg PO TID PRN (Reason: Dizziness) 0RF ertapenem 1 gram recon soln 1 g IV .EVERY 24 HOURS 0RF Rx Instructions: for 10 days Discharge Orders: Discharge Order (Routine); Ordered 05/10/21 Ordered By: Lulú Espinal Referrals: [facility] [Outside] Santosh Avery MD [Physician] - 05/22/21 1:00 pm Geeta Anders FNP-C [Primary Care Provider] - Patient Instructions: Hypokalemia (DC), Anemia (DC), Urinary Tract Infection in Older Adults (DC) Discharge Attestations Time Spent in Discharge Care*: less than 30 min Status at Discharge: Cognitive status at discharge: mildly impaired cognition , Behavioral status at discharge: cooperative , Quality Metrics Clinical Quality Measures [ No reported AMI, CVA or VTE this stay] Coding Level of Care Code Acute Chg FW DC note Diagnoses Hypokalemia E87.6 Anemia D64.9 Peripheral arterial disease I73.9 UTI (urinary tract infection) N39.0 Lactic acidosis E87.2 Septic shock A41.9; R65.21 Acute respiratory failure with hypoxia J96.01 Bowel perforation K63.1 Decubitus ulcer L89.90 Acute encephalopathy G93.40
[2021-05-10] MEDS: pantoprazole 40 mg SDV IVP (10:20)
[2021-05-10] MEDS: magnesium oxide 400 mg tablet PO (10:20)
[2021-05-10] MEDS: clopidogrel 75 mg Tablet PO (10:20)
[2021-05-10] MEDS: collagenase oint 30 gm 1 APPLIC TOPICAL (10:24)
--- NOTE | 2021-05-10 12:03 | PC.NURSE ---
Called report to Neela Ahmadi RN at [facility] at 1134.
--- NOTE | 2021-05-10 12:03 | PC.NURSE ---
Removed Right IJ at 1100.
--- NOTE | 2021-05-10 12:04 | PC.NURSE ---
Flushed catheter with 100 mL steril water. Dumped 200 from Catheter. Charted 100 ml urine.
[2021-05-10 12:08] LABS: Glucose Point of Care 144 mg/dL (70-110)
[2021-05-10] MEDS: insulin lispro 100 unit/1 mL SUBCUT (12:17)
== END 2021-05-10 12:30 | disposition skilled nursing facility (03) | DRG 853 ==
LOC: ER 03:13 → OR 03:21 → ICU 06:16 → MEDSURG 05-06 10:44
PROVIDERS: Surgery; Admitting Provider Family Medicine; Emergency Provider Emergency Medicine; PCP Nurse Practitioner Family; Visit Provider Internal Medicine
PROC: 0DQA0ZZ Repair Jejunum, Open Approach (ICD-10-PCS; CPT 49000; principal; 2021-05-02 12:00)
DX: A41.9 Sepsis, unspecified organism (principal); G93.41 Metabolic encephalopathy; L89.103 Pressure ulcer of unspecified part of back, stage 3; L89.623 Pressure ulcer of left heel, stage 3; L89.613 Pressure ulcer of right heel, stage 3; R65.21 Severe sepsis with septic shock; J96.01 Acute respiratory failure with hypoxia; T81.32XA Disruption of internal operation (surgical) wound, not elsewhere classified, initial encounter; K91.81 Other intraoperative complications of digestive system; K95.89 Other complications of other bariatric procedure; E87.2 Acidosis; I50.32 Chronic diastolic (congestive) heart failure; B37.49 Other urogenital candidiasis; E44.0 Moderate protein-calorie malnutrition; Z98.84 Bariatric surgery status; I95.9 Hypotension, unspecified; E11.9 Type 2 diabetes mellitus without complications; Z86.16 Personal history of COVID-19; F41.9 Anxiety disorder, unspecified; F32.A Depression, unspecified; F10.11 Alcohol abuse, in remission; Z68.23 Body mass index [BMI] 23.0-23.9, adult; Z79.84 Long term (current) use of oral hypoglycemic drugs; Z74.01 Bed confinement status; B95.2 Enterococcus as the cause of diseases classified elsewhere; R31.9 Hematuria, unspecified; I87.2 Venous insufficiency (chronic) (peripheral); E87.6 Hypokalemia; I73.9 Peripheral vascular disease, unspecified; Z66 Do not resuscitate; D64.9 Anemia, unspecified; I11.0 Hypertensive heart disease with heart failure; Z87.891 Personal history of nicotine dependence; Z86.718 Personal history of other venous thrombosis and embolism; Z87.440 Personal history of urinary (tract) infections; Z85.89 Personal history of malignant neoplasm of other organs and systems
CPT/HCPCS: 36415; 36416; 36430; 36556; 36592; 36600; 71045; 74176; 75635; 80048; 80053; 80202; 81001; 82550; 82803; 82962; 83605; 83735; 83880; 84100; 84145; 84443; 84484; 85025; 85362; 85378; 85384; 85610; 85730; 86140; 86850; 86900; 86920; 87040; 87070; 87077; 87086; 87106; 87186; 87205; 87641; 93005; 93925; 93970; 94002; 94003; 94664; 94799; 96365; 96366; 96367; 96368; 96372; 99291; A4570; C1751; C9113; J0330; J0743; J1100; J1450; J1644; J1650; J1815; J2020; J2270; J2370; J2405; J2543; J2704; J3010; J3370; J3475; J3480; J3490; J7030; J7050; P9016; P9047; Q9967

== ENCOUNTER 2021-05-15 12:18 | Emergency (ER) | payer MEDICARE, MEDICAID, SELFPAY ==
[2021-05-15] VITALS (7 sets, daily range): BP systolic 79–143; BP diastolic 50–108; PULSE 58–65; RESP 10–17; O2SAT 92–100; BMI 30.2
--- NOTE | 2021-05-15 12:21 | CT_ITS ---
WS: [id number] CT ABDOMEN PELVIS TECHNIQUE: Contrast-enhanced CT of the abdomen and pelvis with coronal and sagittal reformatted image s. CLINICAL INFORMATION: abd pain COMPARISON: CTA May 04, [address] May 02, 2021 DLP: 1723.[address] scans at [facility] use at least one of these dose optimization techniques: automated e xposure control; mA and/or kV adjustment per patient size (includes targeted exams where dose is matc hed to clinical indication); or iterative reconstruction. FINDINGS: Prior history of gastric bypass. Recent gastric perforation with repair. Small air-fluid co llection in the area of prior repair that may be extraluminal measuring 3.0 x 2.0 CM. Recommend short interval follow-up to assess for recurrent/residual leak or abscess. Surgical drain traverses just p osterior to this area. Surgical drain tip in the LEFT upper quadrant. Otherwise no free air. Previous ly described large pneumoperitoneum has resolved. Moderate LEFT and small RIGHT pleural effusion with bibasilar atelectasis. Diffuse body wall anasarca appears progressed from the prior studies. Coronary calcification. Diffuse fatty infiltration liver. Cholecystectomy clips. Adrenal glands are normal. No hydronephrosis. LEFT renal cyst is unchanged. T iny RIGHT renal cyst. Fatty atrophy of the pancreas. Moderate aortic calcification. Mild stenosis of the celiac and moderate stenosis at the SMA origins w hich appear patent. No abdominal aortic aneurysm. Diffuse mesenteric edema. Small amount of fluid in the pelvis. Small amount of ascites in the pericolic gutters. Voss catheter. Colon is decompressed. Prior postoperative changes RIGHT upper quadrant and small bowel. Surgical incision midline abdomen with a small amount of subcutaneous air. This is stable compared to May 05, 2019. Slight anterolisthesis L4 on L5. Postoperative changes intramedullary alysa and screw fixation LEFT hip . Probable small developing decubitus ulcer overlying the sacrococcygeal junction. No drainable fluid collections. CT/CT abdomen pelvis w con* [id number] IMPRESSION: 1. Moderate LEFT and small pleural effusions with compressive atelectasis in t he lung bases. 2. Prior gastric bypass abdominal surgery. Recent repair of gastric bypass per foration 3. Suspected extraluminal air-fluid collection in the area of prior gastric pe rforation measuring 2.1 x 3.0 cm. This may represent recurrent or residual leak or developing abscess. Recommend short interval follow-up to assess change. Th is is not accessible for percutaneous drainage. 4. Diffuse body wall anasarca. 5. Small amount of ascites in the pelvis. 6. Voss catheter. 7. Surgical excision anterior abdominal wall with small amount of subcutaneous air. 8. Probable small developing decubitus ulcer overlying the sacrococcygeal junc tion. No drainable fluid collections. Notified Keegan Vazquez DO at 05/15/2021 2:24 PM.
--- NOTE | 2021-05-15 12:21 | ECG_ITS ---
[facility] Test Date: 2021-05-15 Pat Name: Almita Mckinley Department: Room: Gender: Female [employer]: : 1955 Requested By: Keegan Lopez Order Number: [id number] Viridiana MD: Nate Kennedy M.D. Measurements Intervals [place] Rate: 59 P: 23 LA: 135 QRS: -4 QRSD: 94 T: -84 QT: 425 QTc: 423 Interpretive Statements SINUS BRADYCARDIA with a frequent premature atrial contractions LOW QRS VOLTAGE IN EXTREMITY LEADS [QRS DEFLECTION < 0.5 mV IN LIMB LEADS] ABNORMAL QRS-T ANGLE [QRS-T AXIS DIFFERENCE > 60] Compared to ECG 05/04/2021 20:34:37 Sinus tachycardia no longer present Left-axis deviation no longer present Myocardial infarct finding no longer present Electronically Signed On 05-15-2021 22:45:21 CDT by Nate Kennedy M.D. [email or web address]
--- NOTE | 2021-05-15 12:55 | W.ED.GENADLT ---
HPI - General Adult General: Chief complaint: General Medical Stated complaint: RECENT BOWEL PERF, DISCOLORED DRAINAGE Time Seen by Provider: 05/15/21 12:20 Source: patient Mode of arrival: EMS Limitations: no limitations History of Present Illness: 65-year-old female presents to the emergency room from half-way with drainage from a MARIO drain site in the right flank. She did breakdown and dehiscence of a gastric bypass underwent surgery and MARIO drain was left in place she has serous drainage from that site now at the half-way she is extremely pale in appearance and hypotensive on arrival. Onset (ago): minute(s) Location: abdomen Relieving factors: none Exacerbating factors: none Associated symptoms: Reports weakness; Deny chest pain, confusion, cough, diaphoresis, decreased appetite, dyspnea, fevers/chills, headache(s), malaise, nausea, rash, palpitations, seizures, short of breath, syncope or vomiting Treatments prior to arrival: none Review of Systems Const: Denies: malaise or diaphoresis Card: Denies: chest pain, palpitations or syncope Resp: Denies: dyspnea GI: Reports: abdominal pain, bloating and GI cramping; Denies: nausea, vomiting, hematemesis or coffee ground emesis : Reports: other; Denies: flank pain Skin/Breast: Denies: rash Neuro: Denies: headache(s) or confusion PFS ED PFSH: Medical History Anasarca Anxiety disorder Complete tear of right rotator cuff (~11/2020) COVID-19 DJD of right AC (acromioclavicular) joint GERD (gastroesophageal reflux disease) High anion gap metabolic acidosis History of alcohol dependence Hyperlipidemia Hypertension Hyperthyroidism Hypokalemia Hypotension Ileocolic intussusception Intertrochanteric fracture of left hip Lactic acidosis Macrocytic anemia Major depressive disorder Moderate protein-calorie malnutrition NSTEMI (non-ST elevated myocardial infarction) Physical deconditioning Pressure injury, unstageable, with eschar Refeeding syndrome Sarcoidosis diagnosis per available outside records, with patient stating onset in , details unknown, never put on specific treatment per report Sepsis Thrombocytopenia Type 2 diabetes mellitus UTI due to extended-spectrum beta lactamase (ESBL) producing Escherichia coli Vulvar carcinoma Surgical History History of carpal tunnel release History of gastric bypass [place] 2015 History of hip surgery left Family History Other Cancer Social History Smoking and tobacco status: former smoker Alcohol intake: former Number of children: 0 Physical Exam Const: GENERAL APPEARANCE: cooperative and comfortable ORIENTATION/CONSCIOUSNESS: Yes awake, Yes oriented to person, Yes oriented to place and Yes oriented to time HENMT: COMMON NORMALS: normocephalic, atraumatic and hearing grossly normal bilaterally HEAD & SCALP: normocephalic and atraumatic Resp: COMMON NORMALS: normal respiratory effort, No retractions, No use of accessory muscles and clear to auscultation bilaterally AUSCULTATION: clear to auscultation bilaterally Cardio: COMMON NORMALS: regular rhythm and No murmurs present (Cardio) RATE: bradycardic RHYTHM: regular rhythm GI: COMMON NORMALS: No hepatosplenomegaly present AUSCULTATION: Yes Hypoactive bowel sounds present PALPATION: Yes Tenderness to palpation present (GI) (Mild diffuse tenderness), No Guarding due to palpation present (GI) and Yes No hepatosplenomegaly present OTHER: Sandra in incision in the left side of the abdomen once stable appears to have come out there is a small bit of dehiscence of the superficial skin of that wound but no active drainage no erythema no sign of infection. MARIO drain right mid flank large amount of clear fluid soaking patient's closing in bed close. Voss in place with extremely dark bilious colored urine. Extremity: COMMON NORMALS: normal to inspection, capillary refill normal, no clubbing, cyanosis or edema, no calf tenderness and no pedal edema Neuro: SENSORIUM/ORIENTATION: Yes oriented to person, Yes oriented to place and Yes oriented to time Skin: COMMON NORMALS: no rashes or lesions noted GENERAL SKIN EXAM: no rashes or lesions noted Course Vital Signs: Vital signs: Vital Signs Pulse Rate 61 05/15/21 15:51 Respiratory Rate 10 L 05/15/21 15:51 Blood Pressure 143/83 05/15/21 15:51 Pulse Oximetry 99 05/15/21 15:51 [facility] - General Adult Medical Decision Making Discussed Dr. fairchild due to previous surgery and Dr. Vogt who is on-call. The only reason previous surgery was done here is because patient was not good to be stable enough to go anywhere and it was to salvage surgery. Both Dr. Avery and Dr. Vogt recommend that she be transferred to tertiary care center change she is now having a complication of her complication. She does have an air-fluid level that we have cultured started on Zofran who called and talked to Dr. Marinelli bariatric surgeon at [facility] he agreed to take and recommend that we transfer the patient by air ambulance is direct ER to ER this arrangements are being made discussed with the patient she is in agreement. Medical Records I reviewed the patient's medical records. Lab Data I reviewed the patient's lab results. : 05/15/21 12:57 05/15/21 12:57 Radiology Impressions Abdomen/Pelvis CT 05/15/21 12:21 IMPRESSION: 1. Moderate LEFT and small pleural effusions with compressive atelectasis in the lung bases. 2. Prior gastric bypass abdominal surgery. Recent repair of gastric bypass perforation 3. Suspected extraluminal air-fluid collection in the area of prior gastric perforation measuring 2.1 x 3.0 cm. This may represent recurrent or residual leak or developing abscess. Recommend short interval follow-up to assess change. This is not accessible for percutaneous drainage. 4. Diffuse body wall anasarca. 5. Small amount of ascites in the pelvis. 6. Voss catheter. 7. Surgical excision anterior abdominal wall with small amount of subcutaneous air. 8. Probable small developing decubitus ulcer overlying the sacrococcygeal junction. No drainable fluid collections. Notified Keegan Vazquez DO at 05/15/2021 2:24 PM. Laboratory Results WBC 8.1 10^3/uL (4.0-10.0) 05/15/21 12:57 RBC 2.74 10^6/uL (4.1-5.3) L 05/15/21 12:57 Hgb 8.8 g/dL (11.5-15.3) L 05/15/21 12:57 Hct 28.5 % (37.0-47.0) L 05/15/21 12:57 MCV 104.0 fl (81-99) H 05/15/21 12:57 MCH 32.1 pg (28.0-34.0) 05/15/21 12:57 MCHC 30.9 g/dL (30.0-36.0) 05/15/21 12:57 RDW 16.3 % (12.1-15.1) H 05/15/21 12:57 Plt Count 106 10^3/cmm (130-400) L 05/15/21 12:57 MPV 10.8 fL (7.4-10.4) H 05/15/21 12:57 Neut % (Auto) 78.8 % 05/15/21 12:57 Lymph % (Auto) 16.5 % 05/15/21 12:57 Bucks % (Auto) 2.9 % 05/15/21 12:57 Eos % (Auto) 0.2 % 05/15/21 12:57 Baso % (Auto) 0.1 % 05/15/21 12:57 Neut # (Auto) 6.34 10^3/uL (1.8-7.7) 05/15/21 12:57 Lymph # (Auto) 1.3 10^3/uL (0.8-4.8) 05/15/21 12:57 Bucks # (Auto) 0.2 10^3/uL (0.2-0.9) 05/15/21 12:57 Eos # (Auto) 0.0 10^3/uL (0.0-0.8) 05/15/21 12:57 Baso # (Auto) 0.0 10^3/uL (0.0-0.1) 05/15/21 12:57 Nucleated RBC % (auto) 0 % 05/15/21 12:57 Nucleated RBCs # 0.0 /100WBC 05/15/21 12:57 PT 14.70 SECONDS (12.1-14.9) 05/15/21 13:20 INR 1.12 (0.8-1.2) 05/15/21 13:20 APTT 51.1 SECONDS (23.9-36.7) H 05/15/21 13:20 Sodium 129 mmol/L (136-145) L 05/15/21 12:57 Potassium 4.1 mmol/L (3.5-5.1) 05/15/21 12:57 Chloride 100 mmol/L (98-107) 05/15/21 12:57 Carbon Dioxide 18 mmol/L (22-29) L 05/15/21 12:57 Anion Gap 15.1 (5-19) 05/15/21 12:57 BUN 12 mg/dL (8-23) 05/15/21 12:57 Creatinine 0.4 mg/dL (0.5-0.9) L 05/15/21 12:57 GFR Calculation 160.2 mL/min (90-130) H 05/15/21 12:57 Glucose 220 mg/dL (65-115) H 05/15/21 12:57 Calculated Osmolality 275 mOsm/kg (285-295) L 05/15/21 12:57 Lactic Acid 2.3 mmol/L (0.5-2.2) H 05/15/21 13:20 Calcium 7.5 mg/dL (8.5-10.5) L 05/15/21 12:57 Total Bilirubin 0.4 mg/dL (0.15-1.2) 05/15/21 12:57 AST 22 U/L (0-32) 05/15/21 12:57 ALT 16 U/L (0-33) 05/15/21 12:57 Alkaline Phosphatase 96 IU/L (35-105) 05/15/21 12:57 Creatine Kinase 37 U/L (26-192) 05/15/21 12:57 Total Protein 3.4 g/dL (6.6-8.7) L 05/15/21 12:57 Albumin 1.3 g/dL (3.5-5.2) L 05/15/21 12:57 Globulin 2.1 g/dL (1.3-4.6) 05/15/21 12:57 Lipase 20 U/L (13-60) 05/15/21 12:57 Urine Color Yellow (Yellow) 05/15/21 14:24 Urine Appearance Clear (CLEAR) 05/15/21 14:24 Urine pH 5 (5-7) 05/15/21 14:24 Ur Specific [place] 1.005 (1.005-1.030) 05/15/21 14:24 Urine Protein Trace (Negative) 05/15/21 14:24 Urine Glucose (UA) Norm (Normal) 05/15/21 14:24 Urine Ketones Negative (Negative) 05/15/21 14:24 Urine Blood 3+ (Negative) H 05/15/21 14:24 Urine Nitrate Positive (Negative) H 05/15/21 14:24 Urine Bilirubin Neg (Negative) 05/15/21 14:24 Urine Urobilinogen Neg mg/dL (Negative) 05/15/21 14:24 Ur Leukocyte Esterase 2+ (Negative) H 05/15/21 14:24 Urine RBC 40-50 /hpf (0-2) H 05/15/21 14:24 Urine WBC 40-55 /hpf (0-5) H 05/15/21 14:24 Ur Squamous Epith Cells 5-10 /hpf (0-5) H 05/15/21 14:24 Amorphous Sediment Not Reportable 05/15/21 14:24 Urine Bacteria 1+ /hpf (NONE) H 05/15/21 14:24 Urine Yeast 4+ /hpf H 05/15/21 14:24 Blood Type A Positive 05/15/21 13:20 Rho(D) Type Positive 05/15/21 13:20 Antibody Screen Negative 05/15/21 13:20 Discharge Plan Discharge Patient Disposition: Transfer to ED Clinical Impression: Gastric perforation, Decubitus ulcer, UTI (urinary tract infection), Peripheral arterial disease Condition: Stable Prescriptions: No Action fluticasone propionate [Allergy Relief (fluticasone)] 50 mcg/actuation spray,suspension 1 spray intranasal DAILY@08 0RF Rx Instructions: administer into each nostril pantoprazole 40 mg tablet,delayed release (DR/EC) 40 mg PO DAILY@06 0RF simvastatin 40 mg tablet 40 mg PO DAILY@20 0RF multivitamin Tablet 1 tab PO DAILY@08 0RF quetiapine [Seroquel] 25 mg Tablet 12.5 mg PO BID@08,20 0RF albuterol sulfate 90 mcg/actuation Hfa Aerosol Inhaler 2 puff INHALATION QID 0RF (DME) FreeStyle Swathi 14 Day [place] Misc MISCELLANEOUS 0RF Macrobid 100 mg Capsule 100 mg PO BID 0RF venlafaxine 75 mg tablet 75 mg PO DAILY@08 0RF clonazepam 0.5 mg Tablet 0.5 mg PO BID PRN (Reason: Anxiety) 0RF calcium carbonate-vitamin D3 600 mg(1,500mg) -200 unit Tablet 1 tab PO DAILY@08 0RF gabapentin 300 mg Capsule 300 mg PO TID@08,16,20 0RF midodrine 10 mg tablet 10 mg PO TID PRN (Reason: unknown) 0RF coenzyme Q10 [CoQ-10] 100 mg Capsule 100 mg PO TID@08,16,20 0RF zinc oxide Ointment 1 applic TOPICAL TID PRN (Reason: unknown) 0RF Breo Ellipta 100-25 mcg/dose blister with device 1 ea INHALATION DAILY@08 0RF Lactobacillus rhamnosus GG 1 cap PO BID@08,20 0RF biotin 1 cap PO DAILY@08 0RF ferrous sulfate 325 mg (65 mg iron) tablet,delayed release (DR/EC) 325 mg PO .ON MON,WED,FRI 0RF metoprolol tartrate 25 mg tablet 12.5 mg PO BID@08,20 0RF Januvia 100 mg tablet 100 mg PO DAILY@08 0RF thiamine mononitrate (vit B1) [Vitamin B-1 (mononitrate)] 100 mg tablet 100 mg PO DAILY@08 0RF atorvastatin 40 mg Tablet 20 mg PO BEDTIME Qty: 90 3RF clopidogrel 75 mg Tablet 75 mg PO DAILY Qty: 90 3RF oxycodone 5 mg Tablet 10 mg PO Q4H PRN (Reason: Severe Pain) Qty: 10 0RF Santyl 250 unit/gram ointment 1 applic topical BID Qty: 90 4RF fluconazole 200 mg Tablet 200 mg PO DAILY Qty: 10 0RF Rx Instructions: for 5 days furosemide 20 mg tablet 20 mg PO PRN PRN (Reason: swelling) Qty: 0 0RF Referrals: Jeovanny Loera MD [Primary Care Provider] - Coding Level of Care Code ED [employer] Cart Operator for Chg Fwd Exam Detailed
--- NOTE | 2021-05-15 13:01 | PC.PHAR ---
PT FROM [facility]. UNABLE TO VERIFY MEDS. MEDICATION VERIFIED WITH NURSE BAY FROM [facility].
[2021-05-15 13:07] LABS: Basophils % 0.1 %; Eosinophils % 0.2 %; Hematocrit 28.5 % (37.0-47.0); Hemoglobin 8.8 g/dL (11.5-15.3); Lymphocytes # 1.3 10^3/uL (0.8-4.8); Lymphocytes % 16.5 %; Mean Corpuscular HGB Conc 30.9 g/dL (30.0-36.0); Mean Corpuscular Hemoglobin 32.1 pg (28.0-34.0); Mean Platelet Volume 10.8 fL (7.4-10.4); Monocytes # 0.2 10^3/uL (0.2-0.9); Monocytes % 2.9 %; Neutrophils # 6.34 10^3/uL (1.8-7.7); Neutrophils % 78.8 %; Nucleated Red Blood Cells % 0 %; Platelet Count 106 10^3/cmm (130-400); Red Blood Count 2.74 10^6/uL (4.1-5.3); Red Cell Distribution Width 16.3 % (12.1-15.1); White Blood Count 8.1 10^3/uL (4.0-10.0)
[2021-05-15] MEDS: sodium chloride 0.9% 2,177.25 ML 2177.25 ML IV (13:08)
[2021-05-15 13:30] LABS: Alanine Aminotransferase 16 U/L (0-33); Albumin Level 1.3 g/dL (3.5-5.2); Alkaline Phosphatase 96 IU/L (35-105); Aspartate Amino Transferase 22 U/L (0-32); Blood Urea Nitrogen 12 mg/dL (8-23); Calcium 7.5 mg/dL (8.5-10.5); Carbon Dioxide 18 mmol/L (22-29); Chloride 100 mmol/L (98-107); Globulin 2.1 g/dL (1.3-4.6); Glomerular Filtration Rate 160.2 mL/min (90-130); Glucose 220 mg/dL (65-115); Osmolality Calculated 275 mOsm/kg (285-295); Sodium 129 mmol/L (136-145); Total Bilirubin 0.4 mg/dL (0.15-1.2); Total Protein 3.4 g/dL (6.6-8.7)
[2021-05-15 13:35] LABS: Anion Gap 15.1 (5-19); Creatinine Clr Calc Pharmacy 63.8717; Potassium 4.1 mmol/L (3.5-5.1)
[2021-05-15 13:42] LABS: Creatine Phosphokinase 37 U/L (26-192); Lipase 20 U/L (13-60)
[2021-05-15 13:49] LABS: INR 1.12 (0.8-1.2); Lactic Sepsis W/Reflex 2.3 mmol/L (0.5-2.2); Partial Thromboplastin Time 51.1 SECONDS (23.9-36.7)
[2021-05-15 13:59] LABS: ABG PCO2 43.2 mmHg (35-45); ABG PH Result 7.38 (7.35-7.45); Alveolar-Arterial Oxygen Gradi 3.9 mmHg (5-10); Arterial Blood Gas Hematocrit 25.6 % (37-47); Base Excess ABG 0.1 mmol/L (-2.0-2.0); Blood Gas Sample Type Arterial; Carboxyhemoglobin 1.2 %THgb (0.4-20.1); HCO3 ABG 25.4 mmol/L (22-26); HGB O2 Sat 90.5 % (95-100); Ionized Calcium Level - ABG 1.2 mmol/L (1.1-1.4); Methemoglobin 1.3 % (0.4-1.5); Oxygen Saturation ABG 92.8; PO2 ABG 64.3 mmHg (80.0-100.0); Potassium Level - ABG 3.5 mmol/L (3.5-5.0); Total Hemoglobin 8.4 g/dL (12-16)
[2021-05-15 14:00] LABS: Blood Gas Operator Identificat ED; Blood Gas Sample Site Brachial, right; Oxygen Device ROOM AIR
[2021-05-15 15:02] LABS: Add Urine Microscopic? YES; Bacteria Urine 1+ /hpf; Bilirubin Urine Neg (Negative); Blood Urine 3+ (Negative); Glucose Urine UA Norm (Normal); Ketones Urine Negative (Negative); Leukocyte Esterase Urine 2+ (Negative); Nitrate Urine Positive (Negative); Protein Urine Trace (Negative); RBC Urine 40-50 /hpf (0-2); Specific Gravity, Urine 1.005 (1.005-1.030); Urine Appearance Clear (CLEAR); Urine Color Yellow (Yellow); Urobilinogen Urine Neg (Negative); WBC Urine 40-55 /hpf (0-5); pH Urine 5 (5-7)
[2021-05-15 15:03] LABS: Add Urine Culture? Yes
[2021-05-15] MEDS: piperacillin-tazobactam 3.375 GM in sodium chloride 0.9% (plus) 50 ML IV (15:09)
[2021-05-15 15:19] LABS: Reflex Lactate Order REFLEX LACTIC ORDERD
[2021-05-15] MEDS: lactated ringers 1,000 ML 999 ML IV (15:49)
== END 2021-05-15 16:56 ==
PROVIDERS: Emergency Provider Family Medicine; PCP Internal Medicine
DX: T85.598A Other mechanical complication of other gastrointestinal prosthetic devices, implants and grafts, initial encounter (principal); Y83.2 Surgical operation with anastomosis, bypass or graft as the cause of abnormal reaction of the patient, or of later complication, without mention of misadventure at the time of the procedure; L89.159 Pressure ulcer of sacral region, unspecified stage; N39.0 Urinary tract infection, site not specified; I73.9 Peripheral vascular disease, unspecified; R60.1 Generalized edema; J90 Pleural effusion, not elsewhere classified; E11.9 Type 2 diabetes mellitus without complications; I10 Essential (primary) hypertension
CPT/HCPCS: 36415; 36600; 74177; 80051; 80053; 81001; 82330; 82550; 82805; 83605; 83690; 85025; 85610; 85730; 86850; 86900; 87040; 87077; 87086; 87186; 93005; 96365; 96366; 99285; J2543; J7030; Q9967